=== PATIENT | male | born 1985 | race African-American/Black ===

== ENCOUNTER 2022-07-15 12:28 | Emergency (ER) | payer SELFPAY ==
--- OUTSIDE RECORDS SUMMARY | 2022-07-15 12:31 | XMS REPORT | Clinical Summary ---
:1985 Author Organization [facility] MD [facility] Address [address] [place] [address] Care Team Providers Name Role Phone Unavailable Primary Care Provider Unavailable Allergies No known active allergies Medications Medication Sig Dispensed Refills Start Date End Date Status meclizine Take 1 tablet 10 tablet 0 05/26/2022 05/29/2022 Expi red (ANTIVERT) 12.5 mg (12.5 mg) by mouth tabletIndications: 3 (three) times a Dizziness day as needed for dizziness for up to 3 days. meclizine Take 0.5 tablets 5 tablet 0 05/26/2022 05/29/2022 E xpired (ANTIVERT) 25 mg (12.5 mg) by mouth tabletIndications: 3 (three) times a Dizziness day as needed for dizziness for up to 3 days. Active Problems Not on file Encounters Date Type Specialty Care Team Description 05/26/2022 Emergency Emergency Medicine Mulu Underwood MD Dizzi ness (Primary Dx); Dehydration; HIV positive 05/26/2022 Travel after 07/15/2021 Social History Tobacco Use Types Packs/Day Years Used Date Smoking Tobacco: Never Assessed Sex Assigned at Date Recorded Not on file Job Start Date Occupation Industry Not on file Not on file Not on file Last Filed Vital Signs Vital Sign Reading Time Taken Comments Blood Pressure 119/80 05/26/2022 10:22 PM CDT Pulse 61 05/26/2022 10:22 PM CDT Temperature 36.7 C (98 F) 05/26/2022 10:22 PM CDT Respiratory Rate 18 05/26/2022 10:22 PM CDT Oxygen Saturation 98% 05/26/2022 10:22 PM CDT Inhaled Oxygen Concentration - - Weight 65.1 kg (143 lb 8.3 oz) 05/26/2022 6:01 PM CDT Height - - Body Mass Index - - Plan of Treatment Not on file Procedures Procedure Name Priority Date/Time Associated Comments Diagnosis CT HEAD WO CONTRAST Routine 05/26/2022 7:57 Resul ts for this PM CDT procedure are i n the results section. FRACTIONATED BILIRUBIN Routine 05/26/2022 7:06 Re sults for this PM CDT procedure are i n the results section. TOTAL PROTEIN Routine 05/26/2022 7:06 Results for this PM CDT procedure are i n the results section. ASPARTATE Routine 05/26/2022 7:06 Results for this AMINOTRANSFERASE PM CDT procedure a re in the results section. ALANINE AMINOTRANSFERASE Routine 05/26/2022 7:06 Results for this PM CDT procedure are i n the results section. ALKALINE PHOSPHATASE Routine 05/26/2022 7:06 Resu lts for this PM CDT procedure are i n the results section. ALBUMIN LEVEL Routine 05/26/2022 7:06 Results for this PM CDT procedure are i n the results section. CALCIUM LEVEL TOTAL Routine 05/26/2022 7:06 Resul ts for this PM CDT procedure are i n the results section. .GLOMERULAR FILTRATION Routine 05/26/2022 7:06 Re sults for this RATE PM CDT procedure are i n the results section. SERUM CREATININE Routine 05/26/2022 7:06 Results for this PM CDT procedure are i n the results section. ELECTROLYTE PANEL Routine 05/26/2022 7:06 Results for this PM CDT procedure are i n the results section. BLOOD UREA NITROGEN Routine 05/26/2022 7:06 Resul ts for this PM CDT procedure are i n the results section. GLUCOSE LEVEL Routine 05/26/2022 7:06 Results for this PM CDT procedure are i n the results section. MANUAL DIFFERENTIAL STAT 05/26/2022 7:06 Resul ts for this PM CDT procedure are i n the results section. Results CBC STAT 05/26/2022 7:06 Results for this PM CDT procedure are i n the results section. PHOSPHORUS LEVEL Routine 05/26/2022 7:06 Results for this PM CDT procedure are i n the results section. MAGNESIUM LEVEL Routine 05/26/2022 7:06 Results f or this PM CDT procedure are i n the results section. COMPREHENSIVE METABOLIC Routine 05/26/2022 7:06 PANEL PM CDT COMPLETE BLOOD COUNT W/ Routine 05/26/2022 7:06 DIFFERENTIAL PM CDT POC GLUCOSE SCREEN Routine 05/26/2022 6:07 Result s for this PM CDT procedure are i n the results section. after 07/15/[address] Head without Contrast (05/26/2022 7:57 PM CDT) Anatomical Region Laterality Modality Head Computed Tomography Specimen (Source) Anatomical Collection Method Collection Time Re ceived Time Location / / Volume Laterality 05/26/2022 8:03 PM CDT Impressions 05/26/2022 8:07 PM CDT No acute intracranial findings. Favoring chronic sinusitis. Narrative 05/26/2022 8:07 PM CDT FULL RESULT: EXAMINATION: CT HEAD WO CONTRAST on 05/26 7:57 PM COMPARISON: None HISTORY: dizziness INDICATION: dizziness, Dizziness TECHNIQUE: CT HEAD WO CONTRAST was per formed as per departmental protocol. FINDINGS: No acute intracranial hemorrhage, abnorm al castle-white matter differentiation, large transcortical territory ischemia or mass lesion. No extra-axial collection. No midline sh ift or mass effect seen. No evidence for hydrocephalus. Brain vol ume is within normal range. The osseous structures demonstrate no kruger spicious lytic or blastic lesion. The visualized orbits and extracranial s oft tissues are unremarkable. Subtotal opacification of the right sphe noid sinus and left maxillary sinus by polypoid mucosal disease and minimal mucosal thickening in the floor of the right maxillary sinus is without concerning bony destruction or fluid level. Procedure Note [place], MD Marilee - 05/26/2022 FULL RESULT: EXAMINATION: CT HEAD WO CONTRAST on 05/26 7:57 PM COMPARISON: None HISTORY: dizziness INDICATION: dizziness, Dizziness TECHNIQUE: CT HEAD WO CONTRAST was perfo rmed as per departmental protocol. FINDINGS: No acute intracranial hemorrhage, abnorm al castle-white matter differentiation, large transcortical territory ischemia or mass lesion. No extra-axial collection. No midline sh ift or mass effect seen. No evidence for hydrocephalus. Brain vol ume is within normal range. The osseous structures demonstrate no kruger spicious lytic or blastic lesion. The visualized orbits and extracranial s oft tissues are unremarkable. Subtotal opacification of the right sphe noid sinus and left maxillary sinus by polypoid mucosal disease and minimal mucosal thickening in the floor of the right maxillary sinus is without concerning bony destruction or fluid level. IMPRESSION: No acute intracranial findings. Favoring chronic sinusitis. Maria Fernanda Lyons MD IMG CT ORDERABLES .Serum Creatinine (05/26/2022 7:06 PM CDT) athologist Signature Creatinine 0.88 0.67 - 1.17 [facility] mg/dL [facility] Specimen Anatomical Collection Method Collection Time Receive d Time (Source) Location / / Volume Laterality Blood 05/26/2022 7:06 PM 7:11 CDT PM CDT Maria Fernanda Lyons MD LAB BLOOD ORDERABLES Performing Organization Address City/State/ZIP Code Phon e Number [facility] CANCER Unless otherwise noted, [place] [address] [place] all lab tests performed by: Division of Pathology and Laboratory Medicine [address] (ABNORMAL) .CBC (05/26/2022 7:06 PM CDT) athologist Signature WBC 3.8 (L) 4.0 - 11.0 [facility] RBC 4.75 4.50 - [place] MD 6.00 /[facility] Hgb 14.3 14.0 - [place] MD 18.0 gm/dL [facility] Hct 38.3 (L) 40.0 - [place] MD 54.0 [facility] MCV 81 (L) 82 - 98 [facility] MCH 30.1 27.0 - [place] MD 31.0 pg [facility] MCHC 37.3 (H) 31.0 - [place] MD 36.0 gm/dL [facility] RDW-SD 42.4 35.1 - [place] MD 46.3 [facility] RDW-CV 14.3 12.0 - [place] MD 15.5 [facility] Platelet count 181 140 - 440 [facility] MPV 10.8 (H) 4.0 - 10.4 [facility] INRBC 0.0 <=0.0 % [facility] Comment: The INRBC (instrument NRBC) value reflec ts the enumeration of nucleated red blood cells contained i n a 200uL sample of whole blood analyzed by the instrumen t. This value may differ from the NRBC value reported in a manual differential, which is based on a 100 cell differentia l. Specimen Anatomical Collection Method Collection Time Receive d Time (Source) Location / / Volume Laterality Blood 05/26/2022 7:06 PM 3 7:10 CDT PM CDT Maria Fernanda Lyons MD LAB BLOOD ORDERABLES Performing Organization Address City/[facility] Phon e Number [facility] CANCER Unless otherwise noted, [address] all lab tests performed by: Division of Pathology and Laboratory Medicine [address] [place] Glomerular Filtration Rate (05/26/2022 7:06 PM CDT) P athologist Signature eGFR 113 >=60 [facility] mL/min/1.73 [facility]ENTER sq. m Comment: The eGFRcr is calculated with the 2020 KD-EPI creatinine equation using creatinine, patient's age, and sex for adults 18 years of age and older. Other factors, especially muscle mass, may affect accuracy and need to be considered. According to the Kidney Disease: Improvi ng Global Outcomes (KDIGO) CKD Work Group 2012 Clinical Practice Guideline, chronic kidney disease (CKD) is defined as the abnormalities of kidney structure or function, present for more than 3 months, with implications for health. CKD should be c lassified by cause, GFR category, and albuminuria category. KDIGO guidelines provide the following GFR categories Stage Description GFR mL/min/1.73 m2 G1* Normal or high >= 90 G2* Mildly decreased 60-89 G3a Mildly to moderately decreased 45-59 G3b Moderately to severely decreased 30- 44 G4 Severely decreased 15-29 G5 Kidney failure <15 *In the absence of evidence of kidney da mage, neither G1 nor G2 fulfill criteria for CKD. Specimen Anatomical Collection Method Collection Time Receive d Time (Source) Location / / Volume Laterality Blood 05/26/2022 7:06 PM 3 7:11 CDT PM CDT Maria Fernanda Lyons MD LAB BLOOD ORDERABLES Performing Organization Address City/[facility] Phon e Number [facility] CANCER Unless otherwise noted, [address] all lab tests performed by: Division of Pathology and Laboratory Medicine [address] Fractionated Bilirubin (05/26/2022 7:06 PM CDT) [facility] Bili Total 0.6 <=1.2 mg/dL [facility] Comment: Indocyanine Green (ICG) may cause falsel y elevated bilirubin results. Total and direct bilirubin must not be measured from samples containing indocyanine green. False elevation of total bilirubin can b e seen in patients with IgG concentrations above 28 g/L. Bili Direct 0.2 <=0.3 mg/dL [facility] Comment: Indocyanine Green (ICG) may cau se falsely elevated bilirubin results. Total and direct bilirubin must not be measure d from samples containing indocyanine green. Bili Indirect 0.4 0.0 - 0.9 mg/dL NM HIEN JARAD [facility] Specimen Anatomical Collection Method Collection Time Receive d Time (Source) Location / / Volume Laterality Blood 05/26/2022 7:06 PM 7:11 CDT PM CDT Maria Fernanda Lyons MD LAB BLOOD ORDERABLES Performing Organization Address City/State/ZIP Code Phon e Number [facility] CANCER Unless otherwise noted, [place] [address] [place] all lab tests performed by: Division of Pathology and Laboratory Medicine [address] (ABNORMAL) Differential (05/26/2022 7:06 PM CDT) [facility] Neutrophil % 30.4 (L) 42.0 - [facility] 66.0 % CANCER CENTER Lymphocyte % 59.0 (H) 24.0 - [facility] 44.0 % CANCER [place] Monocyte % 7.9 (H) 2.0 - 7.0 [facility] CENTER Eosinophil % 1.6 1.0 - 4.0 [facility] CENTER Basophil % 0.8 0.0 - 1.0 [facility] % [facility] CENTER IGRE % 0.3 0.0 - 0.4 [facility] CENTER Comment: IGRE % count includes Metamyelo cytes, Myelocytes, and Promyelocytes. Neutrophil Abs 1.15 (L) 1.70 - 7.30 K/uL NM MD MCKENZIE CASTANEDA [facility] Lymphocyte Abs 2.23 1.00 - 4.80 K/uL NM MD MCKENZIE CASTANEDA [facility] Monocyte Abs 0.30 0.08 - 0.70 K/uL NM MD HIEN AMAYA [facility] Eosinophil Abs 0.06 0.04 - 0.40 K/uL NM MD MCKENZIE CASTANEDA [facility] CENTER Basophil Abs 0.03 0.00 - 0.10 K/uL NM MD STANF[place] JARAD [facility] IG Abs 0.01 0.00 - 0.04 K/uL NM MD PURVI Cotto [facility] Specimen Anatomical Collection Method Collection Time Receive d Time (Source) Location / / Volume Laterality Blood 05/26/2022 7:06 PM 3 7:10 CDT PM CDT Maria Fernanda Lyons MD LAB BLOOD ORDERABLES Performing Organization Address City/State/ZIP Code Phon e Number [facility] CANCER Unless otherwise noted, [address] all lab tests performed by: Division of Pathology and Laboratory Medicine [address] BUN (05/26/2022 7:06 PM CDT) athologist Signature BUN 12 6 - 23 [facility] mg/dL [facility] CENTER Specimen Anatomical Collection Method Collection Time Receive d Time (Source) Location / / Volume Laterality Blood 05/26/2022 7:06 PM 3 7:11 CDT PM CDT Maria Fernanda Lyons MD LAB BLOOD ORDERABLES Performing Organization Address City/State/ZIP Code Phon e Number [facility] CANCER Unless otherwise noted, [address] all lab tests performed by: Division of Pathology and Laboratory Medicine [facility] [place] ALT (05/26/2022 7:06 PM CDT) athologist Signature ALT 13 <=41 U/L [facility] Specimen Anatomical Collection Method Collection Time Receive d Time (Source) Location / / Volume Laterality Blood 05/26/2022 7:06 PM 3 7:11 CDT PM CDT Maria Fernanda Lyons MD LAB BLOOD ORDERABLES Performing Organization Address City/State/ZIP Code Phon e Number [facility] CANCER Unless otherwise noted, [address] all lab tests performed by: Division of Pathology and Laboratory Medicine [address] [place] Aspartate Aminotransferase (05/26/2022 7:06 PM CDT) athologist Signature AST 27 <=40 U/L [facility] Specimen Anatomical Collection Method Collection Time Receive d Time (Source) Location / / Volume Laterality Blood 05/26/2022 7:06 PM 3 7:11 CDT PM CDT Maria Fernanda Lyons MD LAB BLOOD ORDERABLES Performing Organization Address City/[facility]/ZIP Code Phon e Number [facility] CANCER Unless otherwise noted, [address] all lab tests performed by: Division of Pathology and Laboratory Medicine [address] (ABNORMAL) Total Protein (05/26/2022 7:06 PM CDT) P athologist Signature Total Protein 8.7 (H) 6.4 - 8.3 [facility] g/dL [facility] Specimen Anatomical Collection Method Collection Time Receive d Time (Source) Location / / Volume Laterality Blood 05/26/2022 7:06 PM 3 7:11 CDT PM CDT Maria Fernanda Lyons MD LAB BLOOD ORDERABLES Performing Organization Address City/[facility]/ZIP Code Phon e Number [facility] CANCER Unless otherwise noted, [address] all lab tests performed by: Division of Pathology and Laboratory Medicine [address] Phosphorus Level (05/26/2022 7:06 PM CDT) P athologist Signature Phosphorus 4.4 2.5 - 4.5 [facility] mg/dL [facility] Specimen Anatomical Collection Method Collection Time Receive d Time (Source) Location / / Volume Laterality Blood 05/26/2022 7:06 PM 3 7:11 CDT PM CDT Maria Fernanda Lyons MD LAB BLOOD ORDERABLES Performing Organization Address City/[facility]/ZIP Code Phon e Number [facility] CANCER Unless otherwise noted, [address] all lab tests performed by: Division of Pathology and Laboratory Medicine [address] Alkaline Phosphatase (05/26/2022 7:06 PM CDT) P athologist Signature Alk Phos 80 40 - 129 [facility] U/L [facility] Specimen Anatomical Collection Method Collection Time Receive d Time (Source) Location / / Volume Laterality Blood 05/26/2022 7:06 PM 3 7:11 CDT PM CDT Maria Fernanda Lyons MD LAB BLOOD ORDERABLES Performing Organization Address City/[facility]/ZIP Code Phon e Number [facility] CANCER Unless otherwise noted, [address] all lab tests performed by: Division of Pathology and Laboratory Medicine [address] Magnesium Level (05/26/2022 7:06 PM CDT) athologist Signature Magnesium 2.0 1.6 - 2.6 [facility] mg/dL [facility] Specimen Anatomical Collection Method Collection Time Receive d Time (Source) Location / / Volume Laterality Blood 05/26/2022 7:06 PM 3 7:11 CDT PM CDT Maria Fernanda Lyons MD LAB BLOOD ORDERABLES Performing Organization Address [facility] Phon e Number [facility] Unless otherwise noted, [address] all lab tests performed by: Division of Pathology and Laboratory Medicine [address] (ABNORMAL) Glucose Level (05/26/2022 7:06 PM CDT) P athologist Signature Glucose Level 102 (H) 70 - 99 [facility] mg/dL [facility] Comment: Effective 09/02/15, the glucose reference intervals have been updated based on [place] [employer] guidelines (Standards of Medical Care in Diabetes 2016. Diabetes Care 2016; 39: S13-S22). Fasting blood glucose: Normal: 70-99 mg/dL Impaired fasting glucose (increased risk for diabetes or pre-diabetes): 100- 125 mg/dL Diabetes mellitus: >/=126 mg/dL Random blood glucose: Normal: 70-199 mg/dL Note: Random glucose >100 mg/dL is assoc iated with increased risk for diabetes Specimen Anatomical Collection Method Collection Time Receive d Time (Source) Location / / Volume Laterality Blood 05/26/2022 7:06 PM 3 7:11 CDT PM CDT Maria Fernanda Lyons MD LAB BLOOD ORDERABLES Performing Organization Address City/[facility] Phon e Number [facility] CANCER Unless otherwise noted, [address] all lab tests performed by: Division of Pathology and Laboratory Medicine [address] Calcium Level (05/26/2022 7:06 PM CDT) athologist Signature Calcium Lvl 9.4 8.4 - 10.2 [facility] mg/dL [facility] Specimen Anatomical Collection Method Collection Time Receive d Time (Source) Location / / Volume Laterality Blood 05/26/2022 7:06 PM 3 7:11 CDT PM CDT Maria Fernanda Lyons MD LAB BLOOD ORDERABLES Performing Organization Address City/[facility]/ZIP [facility] Phon e Number [facility] CANCER Unless otherwise noted, [address] all lab tests performed by: Division of Pathology and Laboratory Medicine [facility] Albumin Level (05/26/2022 7:06 PM CDT) athologist Signature Albumin Lvl 4.4 3.5 - 5.2 [facility] gm/dL [facility] Specimen Anatomical Collection Method Collection Time Receive d Time (Source) Location / / Volume Laterality Blood 05/26/2022 7:06 PM 3 7:11 CDT PM CDT Maria Fernanda Lyons MD LAB BLOOD ORDERABLES Performing Organization Address City/[facility]/ZIP Code Phon e Number [facility] CANCER Unless otherwise noted, [address] all lab tests performed by: Division of Pathology and Laboratory Medicine [facility] Electrolyte Panel (05/26/2022 7:06 PM CDT) athologist Signature Sodium Lvl 141 136 - 145 [facility] mEq/L [facility] Potassium Lvl 4.0 3.5 - 5.1 [facility] mEq/L [facility] Chloride 103 98 - 107 [facility] mEq/L [facility] CENTER CO2 25 22 - 29 [facility] mEq/L [facility] Anion Gap 13 4 - 14 [facility] mEq/L [facility] Specimen Anatomical Collection Method Collection Time Receive d Time (Source) Location / / Volume Laterality Blood 05/26/2022 7:06 PM 3 7:11 CDT PM CDT Maria Fernanda Lyons MD LAB BLOOD ORDERABLES Performing Organization Address City/[facility]/ZIP Code Phon e Number [facility] CANCER Unless otherwise noted, [address] all lab tests performed by: Division of Pathology and Laboratory Medicine [address] (ABNORMAL) POC Glucose Screen (05/26/2022 6:07 PM CDT) P athologist Signature POC Glucose 107 (H) 70 - 99 [facility] mg/dL Comment: Capillary blood samples, e.g. obtained b y fingerstick, may have inaccurate results in patients with decreased peripheral blood flow. All POC Glucose screen test results, inc luding critical values, must be interpreted and evaluated in the context of the patients clinical findings. It is recommended to confirm any questionable test results by core lab methodology. Method description: All results are deandra ured using Electrochemistry test methodology. The glucose in the sample mixes with the reagents on the test strip. The reaction produces an electric current. The amount of current produced is proportion al to the glucose concentration in the blood. PO Sample Type Capillary POC [facility] Performing Lab [facility] POC [facility] R Comment: [facility] Clinical Lab, [address] [place] [address]; Lab Direct or: Jie Villalobos MD; Waived Point of Care Testing - Zohra Levin MD Specimen Anatomical Collection Method Collection Time Receive d Time (Source) Location / / Volume Laterality Blood 05/26/2022 6:07 PM 6:07 CDT PM CDT Mulu Underwood MD POCT ORDERABLES - DEVICE Performing Organization Address City/State/ZIP Code Phon e Number POC [facility] Unless otherwise noted, [place] [address] lab tests performed by: Division of Pathology and Laboratory Medicine [address] [place] [address] after 07/15/2021 Insurance Payer Benefit Plan / Subscriber ID Effective Dates Phone Addre ss Type Group [employer] PPO POS [id number] 2022-Present [address] [place] [address]
--- OUTSIDE RECORDS SUMMARY | 2022-07-15 12:48 | XMS REPORT | Continuity of Care Document ---
:1985 Author Organization [facility] t Address [address] [place] [address] [place] [id number] Care Team Providers Name Role Phone CLAUDIA MERRITT Attending Clinician Unavailable YING UNDERWOOD Attending Clinician Unavailable Ying Underwood MD Attending Clinician Kaitlin Porter Attending Clinician Unavailable Boy Costa Attending Clinician Unavailable Matthew Carey Attending Clinician Unavailable PREETI ROBLES Attending Clinician Unavailable Preeti Robles Attending Clinician LATISHA LECHUGA Attending Clinician Unavailable Elizabeht Juárez Attending Clinician ELIZABETH JUÁREZ Attending Clinician Unavailable MARIA DEL ROSARIO CASTAÑEDA Attending Clinician Unavailable Maria Del Rosario Castañeda Attending Clinician Autumn Cuenca Attending Clinician Roselia Tanner Attending Clinician Unavailable German, Oladipo A Admitting Clinician Unavailable Physician, No Primary or Family Admitting Clinician Unavaila ble [facility] Admitting Clinician Unavailable Matthew Carey Admitting Clinician Unavailable PREETI ROBLES Admitting Clinician Unavailable Preeti Robles Admitting Clinician MARIA DEL ROSARIO CASTAÑEDA Admitting Clinician Unavailable Maria Del Rosario Castañeda Admitting Clinician Nallely Mckeon Admitting Clinician Roselia Tanner Admitting Clinician Unavailable Payers Payer Name Policy Type Policy Number Effective Date Expiration Date S zac [place] POS [id number] 2022 00:00:00 Problems Condition Condition Condition Status Onset Resolution Last Treating Co mments Source Name Details Category Date Date Treatment Clinician Date ALCOHOL ALCOHOL Diagnosis Active 2020-11-06 Memoria INTOXICATI INTOXICATI 10-30 22:00:00 l ON, ON, 00:00: Albert DEPRESSION DEPRESSION 00 , AGITAT , AGITAT Active 10/30/2020 [facility] AMS AMS Diagnosis Active 2020-10-30 Mem oria Active 10-30 18:23:00 l 10/30/2020 00:00: Lennox GOLDSMITH [address] [place] [address] WEAKNESS WEAKNESS Diagnosis Active 2020-06-08 Memoria Active 06-08 16:25:00 l 06/08/2020 00:00: Lennox GOLDSMITH [facility] [address] ACUTE ACUTE Diagnosis Active 2019-022019-12-17 Mem oria PANCREATIT PANCREATIT 02-13 15:27:00 l IS IS Active 00:00: Albert 12/15/[address] [place] [address] ABD PAIN ABD PAIN Diagnosis Active 2019-022019-12-15 Memoria Active 02-13 17:57:00 l 12/15/2019 00:00: Lennox GOLDSMITH [place] PANCREATIT PANCREATI Diagnosis Active 2019-04-27 Memoria IS TIS Active 04-25 07:31:00 l 04/26/2019 00:00: Lennox GOLDSMITH 00 [facility] Calculus Calculus Problem 2019-12-23 Memoria of of 07:56:30 l gallbladde gallbladde He rmann r with r with chronic chronic cholecysti cholecysti tis tis without without obstructio obstructio n n 12/23/2019 [facility] Biliary Biliary Problem 2019-12-23 In moria acute acute 07:56:30 l pancreatit pancreatit He rmann is without is without necrosis necrosis or or infection infection 12/23/2019 [facility] Alcohol Alcohol Problem 2019-12-23 In moria dependence dependence 07:56:30 l , , Albert uncomplica uncomplica tae tae 12/23/2019 [facility] Anemia, Anemia, Problem 2019-12-23 In moria unspecifie unspecifie 07:56:30 l d d Albert 12/23/2019 [facility] Contact Contact Problem 2019-12-23 Me moria with and with and 07:56:30 l (suspected (suspected He rmann ) exposure ) exposure to other to other viral viral communicab communicab le le diseases diseases 12/23/2019 [facility] Other long Other Problem 2019-12-23 emoria term emt intermediate 07:56:30 l (current) (current) Herm rachid drug drug therapy therapy 12/23/2019 [facility] Asymptomat Asymptoma Problem 2019-12-23 Memoria ic human tic human 07:56:30 l immunodefi immunodefi He rmann ciency ciency virus virus [HIV] [HIV] infection infection status status 12/23/2019 [facility] Human Human Problem Resolve 2020-11-02 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 virus virus infection infection (disorder) (disorder) Resolved Problem 11/02/2020 [facility] Depressive Depressiv Problem Active 2020-11-02 Memoria disorder e disorder 09:18:03 l (disorder) (disorder) He rmann Active Problem 11/02/2020 [facility] ALCOHOL ALCOHOL Diagnosis Active 2020-11-06 Memoria USE, USE, 22:00:00 l UNSPECIFIE UNSPECIFIE He rmann D WITH D WITH INTOXICATI INTOXICATI Active [facility] ACUTE ACUTE Diagnosis Active 2019-12-17 Mem oria PANCREATIT PANCREATIT 15:27:00 l IS WITHOUT IS WITHOUT He rmann NECROSIS NECROSIS OR I OR I Active [facility] ACUTE ACUTE Diagnosis Active 2019-04-30 Mem oria PANCREATIT PANCREATIT 08:03:00 l IS WITHOUT IS WITHOUT He rmann NECROSIS NECROSIS OR OR INFECTION, INFECTION, UNS UNS Active [facility] History of Past Illness Condition Condition Condition Status Onset Resolution Last Treating Co mments Source Name Details Category Date Date Treatment Clinician Date Syncope Syncope Problem 2020-06-10 2020-06-10 Memoria and and 06-08 22:48:58 22:48:58 l collapse collapse 17:00: Lennox ross 06/08/2020 00 06/10/2020 [facility] Hypokalemi Hypokalem Problem 2020-06-10 2020-06-10 Memoria a ia 06-08 22:48:58 22:48:58 l 06/08/2020 17:00: Lennox ross 06/10/2020 00 [facility], [facility] Allergies, Adverse Reactions, Alerts Allergy Allergy Status Severity Reaction(s) Onset Inactive Treating Comm ents Source Name Type Date Date Clinician No Known DA Active U 2017-02 [facility] Allergie 0-20 Clear s 00:00: Raymond 00 [facility] No Known DA Active U [facility] Allergie 4-20 Clear s 00:00: Raymond 00 [facility] No Known No Known Active Memori a Medicati Medicati l on on Albert Allergie Allergie s s Social History Social Habit Start Date Stop Date Quantity Comments Source Social History 2020-10-31 2020-10-31 [facility] 01:09:24 01:09:24 Sex Ass[birth year] At [birth year] [facility] 00:00:00 00:00:00 MD [facility] Center Smoking Status Start Date Stop Date Source Social [facility] Medications Ordered Filled Start Stop Current Ordering Indication Dosage Frequency Signature Comments Components Source Medication Medication Date Date Medication? Clinician (SIG) Name Name meclizine 2022- No Dizziness 12.5mg Take 1 [facility] ([facility]) 4-20 -24 tablet ity of 12.5 mg 00:00[place] 04:59 [place]12.5 mg[place] mouth 3 MD (three) Anderso times a n day as Cancer needed for Center dizziness for up to 3 days. meclizine 2022- No Dizziness 12.5mg Take 0.5 [facility] (ANTIVERT) 4-20 04-24 tablets ity o f 25 mg 00:00: 04:59 (12.5 mg) [place] tablet 00 :00 by mouth 3 MD (three) Anderso times a n day as Cancer needed for Center dizziness for up to 3 days. Famotidine No Notes: Memor ia 20 MG Oral 9-25 (Same as: l Tablet 22:00: Pepcid) [place] [Pepcid] 00 Famotidine No Notes: Memor ia 20 MG Oral 9-25 (Same as: l Tablet 22:00: Pepcid) [place] [Pepcid] 00 Famotidine No Notes: Memor ia 20 MG Oral 9-25 (Same as: l Tablet 22:00: Pepcid) Albert [Pepcid] 00 Famotidine No Notes: Memor ia 20 MG Oral 9-25 (Same as: l Tablet 22:00: Pepcid) Albert [Pepcid] 00 Multiple Yes 1 tab, PO, Mem oria Vitamins 9-25 Daily, # l oral 15:28: 30 tab, 0 Albert tablet, 00 Refill(s), chewable Pharmacy: [facility], Can substitute for any multivitam in, 177.8, cm, 10/30/20 20:05:00 CDT, Height, 60, kg, 10/30/20 20:05:00 CDT, Weight Multiple Yes 1 tab, PO, Mem oria Vitamins 9-25 Daily, # l oral 15:28: 30 tab, 0 Albert tablet, 00 Refill(s), chewable Pharmacy: [facility], Can substitute for any multivitam in, 177.8, cm, 10/30/20 20:05:00 CDT, Height, 60, kg, 10/30/20 20:05:00 CDT, Weight Multiple Yes 1 tab, PO, Mem oria Vitamins 9-25 Daily, # l oral 15:28: 30 tab, 0 Albert tablet, 00 Refill(s), chewable Pharmacy: [facility], Can substitute for any multivitam in, 177.8, cm, 10/30/20 20:05:00 CDT, Height, 60, kg, 10/30/20 20:05:00 CDT, Weight Multiple Yes 1 tab, PO, Mem oria Vitamins 9-25 Daily, # l oral 15:28: 30 tab, 0 [place] tablet, 00 Refill(s), chewable Pharmacy: [facility], Can substitute for any multivitam in, 177.8, cm, 10/30/20 20:05:00 CDT, Height, 60, kg, 10/30/20 20:05:00 CDT, Weight Folic Acid No Notes: Memor ia 9-25 (Same as: l 14:00: Folvite) Albert 00 multivitami No Notes: Alem patt n 9-25 (Same l 14:00: as:Thera) WASTE: F/P - Black; E - Municipal Trash Bin Take with food. Thiamine No Notes: Memoria 925 (Same As: l 14:00: Vitamin Albert 00 B1) Folic Acid No Notes: Memor ia 10-31 (Same as: l 14:00: Folvite) [place] 00 multivitami No Notes: Alem patt n 9-25 (Same l 14:00: as:Thera) Albert 00 WASTE: F/P - Black; E - Municipal Trash Bin Take with food. Thiamine No Notes: Memoria 9-25 (Same As: l 14:00: Vitamin Albert 00 B1) Folic Acid No Notes: Memor ia 10-31 (Same as: l 14:00: Folvite) Albert 00 multivitami No Notes: Alem patt n 9-25 (Same l 14:00: as:Thera) [place] 00 WASTE: F/P - Black; E - Municipal Trash Bin Take with food. Thiamine No Notes: Memoria 9-25 (Same As: l 14:00: Vitamin [place] 00 B1) Folic Acid No Notes: Memor ia 9-25 (Same as: l 14:00: Folvite) [place] 00 multivitami No Notes: Alem patt n 9-25 (Same l 14:00: as:Thera) Albert 00 WASTE: F/P - Black; E - Municipal Trash Bin Take with food. Thiamine No Notes: Memoria 9-25 (Same As: l 14:00: Vitamin Albert 00 B1) Potassium No Notes: Memori a Chloride 9-25 (Same as: l 12:14: K-Dur 20) Albert 00 "Do Not Crush" Give with food and full glass of water For patients unable to swallow tablet, dissolve in one half glass of water. Allow about 2 minutes for the tablets to disintegra te. Stir before giving to prepare slurry and administer . Please exclude Patient s with feeding tube less than 14 [place] (Dobhoff, J-tube etc) and pediatric and patients. Potassium No Notes: Memori a Chloride 9-25 (Same as: l 12:14: K-Dur 20) Albert 00 "Do Not Crush" Give with food and full glass of water For patients unable to swallow tablet, dissolve in one half glass of water. Allow about 2 minutes for the tablets to disintegra te. Stir before giving to prepare slurry and administer . Please exclude Patient s with feeding tube less than 14 [place] (Dobhoff, J-tube etc) and pediatric and patients. Potassium No Notes: Memori a Chloride 9-25 (Same as: l 12:14: K-Dur 20) [place] 00 "Do Not Crush" Give with food and full glass of water For patients unable to swallow tablet, dissolve in one half glass of water. Allow about 2 minutes for the tablets to disintegra te. Stir before giving to prepare slurry and administer . Please exclude Patient s with feeding tube less than 14 [place] (Dobhoff, J-tube etc) and pediatric and patients. Potassium No Notes: Memori a Chloride 9-25 (Same as: l 12:14: K-Dur 20) Albert 00 "Do Not Crush" Give with food and full glass of water For patients unable to swallow tablet, dissolve in one half glass of water. Allow about 2 minutes for the tablets to disintegra te. Stir before giving to prepare slurry and administer . Please exclude Patient s with feeding tube less than 14 [place] (Dobhoff, J-tube etc) and pediatric and patients. cobicistat Yes 1 tab, PO, M emoria 150 MG / 9-25 Daily, 0 l darunavir 01:15: Refill(s) Her yang 800 MG / 00 emtricitabi ne 200 MG / tenofovir alafenamide 10 MG Oral Tablet [Symtuza] cobicistat Yes 1 tab, PO, M emoria 150 MG / 9-25 Daily, 0 l darunavir 01:15: Refill(s) Her yang 800 MG / 00 emtricitabi ne 200 MG / tenofovir alafenamide 10 MG Oral Tablet [Symtuza] cobicistat Yes 1 tab, PO, M emoria 150 MG / 9-25 Daily, 0 l darunavir 01:15: Refill(s) Her yang 800 MG / 00 emtricitabi ne 200 MG / tenofovir alafenamide 10 MG Oral Tablet [Symtuza] cobicistat Yes 1 tab, PO, M emoria 150 MG / 9-25 Daily, 0 l darunavir 01:15: Refill(s) Her yang 800 MG / 00 emtricitabi ne 200 MG / tenofovir alafenamide 10 MG Oral Tablet [Symtuza] Ativan No Notes: Memoria 9-24 (Same as: l 23:00: Ativan) [place] 00 Ativan No Notes: Memoria 9-24 (Same as: l 23:00: Ativan) [place] 00 Ativan No Notes: Memoria 9-24 (Same as: l 23:00: Ativan) [place] 00 Ativan No Notes: Memoria 9-24 (Same as: l 23:00: Ativan) [place] 00 Docusate No Notes: Memoria 9-24 (Same as: l 22:00: Colace) [place] 00 (Do Not Crush) Docusate No Notes: Memoria 9-24 (Same as: l 22:00: Colace) [place] 00 (Do Not Crush) Docusate No Notes: Memoria 9-24 (Same as: l 22:00: Colace) Albert 00 (Do Not Crush) Docusate No Notes: Memoria 9-24 (Same as: l 22:00: Colace) Albert 00 (Do Not Crush) Haldol No Notes: Memoria 9-24 (Same as: l 21:58: Haldol) Haldol No Notes: Memoria 9-24 (Same as: l 21:58: Haldol) Albert 00 Haldol No Notes: Memoria 9-24 (Same as: l 21:58: Haldol) Haldol No Notes: Memoria 9-24 (Same as: l 21:58: Haldol) Lorazepam No Notes: Memori a 9-24 (Same as: l 18:30: Ativan) Lactated No 1,000 mL, Alem patt Ringers IV 10-30 Rate: 100 l 1,000 mL 18:30: ml/hr, [place] Infuse over: 10 hr, Route: IV, Dosing Weight 67.727 kg, Total Volume: 1,000, Start date: 10/30/20 13:30:00 CDT, Duration: 30 day, Stop date: 11/29/20 13:29:00 CDT, BSA: 1.83 m2, 0 Saline No Notes: Memoria Flush 0.9% 9-24 Same as: l 18:30: BD Posiflush Sterile Lorazepam No Notes: Memori a 9-24 (Same as: l 18:30: Ativan) Lactated No 1,000 mL, Alem patt Ringers IV 10-30 Rate: 100 l 1,000 mL 18:30: ml/hr, Albert 00 Infuse over: 10 hr, Route: IV, Dosing Weight 67.727 kg, Total Volume: 1,000, Start date: 10/30/20 13:30:00 CDT, Duration: 30 day, Stop date: 11/29/20 13:29:00 CDT, BSA: 1.83 m2, 0 Saline No Notes: Memoria Flush 0.9% 9-24 Same as: l 18:30: BD Albert Posiflush Sterile Lorazepam No Notes: Memori a 9-24 (Same as: l 18:30: Ativan) [place] 00 Lactated 2020-0 No 1,000 mL, Alem patt Ringers IV 10-30 Rate: 100 l 1,000 mL 18:30: ml/hr, Albert 00 Infuse over: 10 hr, Route: IV, Dosing Weight 67.727 kg, Total Volume: 1,000, Start date: 10/30/20 13:30:00 CDT, Duration: 30 day, Stop date: 11/29/20 13:29:00 CDT, BSA: 1.83 m2, 0 Saline 2020-0 No Notes: Memoria Flush 0.9% 10-30 Same as: l 18:30: BD [place] 00 Posiflush Sterile Lorazepam 2020-0 No Notes: Memori a 10-30 (Same as: l 18:30: Ativan) Albert 00 Lactated 2020-0 No 1,000 mL, Alem patt Ringers IV 10-30 Rate: 100 l 1,000 mL 18:30: ml/hr, Albert 00 Infuse over: 10 hr, Route: IV, Dosing Weight 67.727 kg, Total Volume: 1,000, Start date: 10/30/20 13:30:00 CDT, Duration: 30 day, Stop date: 11/29/20 13:29:00 CDT, BSA: 1.83 m2, 0 Saline 2020-0 No Notes: Memoria Flush 0.9% 10-30 Same as: l 18:30: BD Posiflush Sterile Dextrose 2020-0 No 12.5 gm, Memor ia 50% Syringe 10-30 25 mL, l (D50W) 18:24: Route: IVP, Drug Form: INJ, Dosing Weight 67.727, kg, PRN, PRN Blood Glucose Results, Start date: 10/30/20 13:24:00 CDT, Duration: 30 day, Stop date: 11/29/20 13:23:00 CDT, 0 Glucagon 2020-0 No 1 mg, Memoria 10-30 Route: IM, l 18:24: Drug form: PDR/INJ, PRN, Dosing Weight 67.727, kg, PRN Blood Glucose Results, Start date: 10/30/20 13:24:00 CDT, Duration: 30 day, Stop date: 11/29/20 13:23:00 CDT, 0 Ondansetron 2020-0 No Notes: Alem patt 10-30 (Same as: l 18:24: Zofran) MEDICATION WASTE Product Size: 4 mg Product Wasted: ___ mg Melatonin 2020- No Notes: Memori a 10-30 (Same as: l 18:24: Melatonin) Dextrose No 12.5 gm, Memor ia 50% Syringe 10-30 25 mL, l (D50W) 18:24: Route: Albert 00 IVP, Drug Form: INJ, Dosing Weight 67.727, kg, PRN, PRN Blood Glucose Results, Start date: 10/30/20 13:24:00 CDT, Duration: 30 day, Stop date: 11/29/20 13:23:00 CDT, 0 Glucagon 2020-0 No 1 mg, Memoria 10-30 Route: IM, l 18:24: Drug form: [place] 00 PDR/INJ, PRN, Dosing Weight 67.727, kg, PRN Blood Glucose Results, Start date: 10/30/20 13:24:00 CDT, Duration: 30 day, Stop date: 11/29/20 13:23:00 CDT, 0 Ondansetron 2020-0 No Notes: Alem patt 10-30 (Same as: l 18:24: Zofran) MEDICATION WASTE Product Size: 4 mg Product Wasted: ___ mg Melatonin No Notes: Memori a 10-30 (Same as: l 18:24: Melatonin) Dextrose No 12.5 gm, Memor ia 50% Syringe 10-30 25 mL, l (D50W) 18:24: Route: Albert 00 IVP, Drug Form: INJ, Dosing Weight 67.727, kg, PRN, PRN Blood Glucose Results, Start date: 10/30/20 13:24:00 CDT, Duration: 30 day, Stop date: 11/29/20 13:23:00 CDT, 0 Glucagon 2020-0 No 1 mg, Memoria 10-30 Route: IM, l 18:24: Drug form: Albert 00 PDR/INJ, PRN, Dosing Weight 67.727, kg, PRN Blood Glucose Results, Start date: 10/30/20 13:24:00 CDT, Duration: 30 day, Stop date: 11/29/20 13:23:00 CDT, 0 Ondansetron No Notes: Alem patt 24 (Same as: l 18:24: Zofran) MEDICATION WASTE Product Size: 4 mg Product Wasted: ___ mg Melatonin No Notes: Memori a 10-30 (Same as: l 18:24: Melatonin) Dextrose No 12.5 gm, Memor ia 50% Syringe 10-30 25 mL, l (D50W) 18:24: Route: IVP, Drug Form: INJ, Dosing Weight 67.727, kg, PRN, PRN Blood Glucose Results, Start date: 10/30/20 13:24:00 CDT, Duration: 30 day, Stop date: 11/29/20 13:23:00 CDT, 0 Glucagon No 1 mg, Memoria 10-30 Route: IM, l 18:24: Drug form: PDR/INJ, PRN, Dosing Weight 67.727, kg, PRN Blood Glucose Results, Start date: 10/30/20 13:24:00 CDT, Duration: 30 day, Stop date: 11/29/20 13:23:00 CDT, 0 Ondansetron No Notes: Alem patt 24 (Same as: l 18:24: Zofran) MEDICATION WASTE Product Size: 4 mg Product Wasted: ___ mg Melatonin No Notes: Memori a 9-24 (Same as: l 18:24: Melatonin) Potassium No Notes: Memori a Chloride 9-24 Infuse at l 17:26: a rate of Albert 00 10 mEq/hr. (Same as: KCL) Potassium No Notes: Memori a Chloride 9-24 Infuse at l 17:26: a rate of Albert 00 10 mEq/hr. (Same as: KCL) Potassium No Notes: Memori a Chloride 9-24 Infuse at l 17:26: a rate of Albert 00 10 mEq/hr. (Same as: KCL) Potassium No Notes: Memori a Chloride 9-24 Infuse at l 17:26: a rate of [place] 00 10 mEq/hr. (Same as: KCL) Thiamine No Notes: Memoria 9-24 (Same As: l 17:25: Vitamin [place] 00 B1) Thiamine No Notes: Memoria 9-24 (Same As: l 17:25: Vitamin [place] 00 B1) Thiamine No Notes: Memoria 9-24 (Same As: l 17:25: Vitamin Albert 00 B1) Thiamine No Notes: Memoria 9-24 (Same As: l 17:25: Vitamin Albert 00 B1) Saline No Notes: Memoria Flush 0.9% 9-24 Same as: l 16:23: BD [place] 00 Posiflush Sterile Sodium No 1,000 mL, Memori a Chloride 9-24 1000 l 0.9% 16:23: ml/hr, [place] (Bolus) IV 00 Infuse Over: 1 hr, Route: IV, 1,000, Drug form: INJ, ONCE, Priority: STAT, Dosing Weight 67.727 kg, Start date: 10/30/20 11:23:00 CDT, Stop date: 10/30/20 11:23:00 CDT, 0 Saline No Notes: Memoria Flush 0.9% 9-24 Same as: l 16:23: BD [place] 00 Posiflush Sterile Sodium 2020-0 No 1,000 mL, Memori a Chloride 9-24 1000 l 0.9% 16:23: ml/hr, [place] (Bolus) IV 00 Infuse Over: 1 hr, Route: IV, 1,000, Drug form: INJ, ONCE, Priority: STAT, Dosing Weight 67.727 kg, Start date: 10/30/20 11:23:00 CDT, Stop date: 10/30/20 11:23:00 CDT, 0 Saline No Notes: Memoria Flush 0.9% 9-24 Same as: l 16:23: BD [place] 00 Posiflush Sterile Sodium No 1,000 mL, Memori a Chloride 9-24 1000 l 0.9% 16:23: ml/hr, Albert (Bolus) IV 00 Infuse Over: 1 hr, Route: IV, 1,000, Drug form: INJ, ONCE, Priority: STAT, Dosing Weight 67.727 kg, Start date: 10/30/20 11:23:00 CDT, Stop date: 10/30/20 11:23:00 CDT, 0 Saline No Notes: Memoria Flush 0.9% 9-24 Same as: l 16:23: BD [place] Posiflush Sterile Sodium No 1,000 mL, Memori a Chloride 9-24 1000 l 0.9% 16:23: ml/hr, [place] (Bolus) IV 00 Infuse Over: 1 hr, Route: IV, 1,000, Drug form: INJ, ONCE, Priority: STAT, Dosing Weight 67.727 kg, Start date: 10/30/20 11:23:00 CDT, Stop date: 10/30/20 11:23:00 CDT, 0 Droperidol No Notes: Memor ia 9-24 (Same as: l 16:22: Inapsine) Droperidol No Notes: Memor ia 9-24 (Same as: l 16:22: Inapsine) Droperidol No Notes: Memor ia 9-24 (Same as: l 16:22: Inapsine) Droperidol No Notes: Memor ia 9-24 (Same as: l 16:22: Inapsine) Potassium No 40 mEq, Memor ia Chloride 5-03 Route: PO, l 21:37: Drug form: [place] 00 ERTAB, ONCE, Dosing Weight 67.727, kg, Priority: STAT, Start date: 06/08/20 16:37:00 CDT, Stop date: 06/08/20 16:37:00 CDT Potassium 2020-0 No 40 mEq, Memor ia Chloride 5-03 Route: PO, l 21:37: Drug form: [place] 00 ERTAB, ONCE, Dosing Weight 67.727, kg, Priority: STAT, Start date: 06/08/20 16:37:00 CDT, Stop date: 06/08/20 16:37:00 CDT Potassium 2020-0 No 40 mEq, Memor ia Chloride 06-08 Route: PO, l 21:37: Drug form: Albert ERTAB, ONCE, Dosing Weight 67.727, kg, Priority: STAT, Start date: 06/08/20 16:37:00 CDT, Stop date: 06/08/20 16:37:00 CDT Potassium 2020-0 No 40 mEq, Memor ia Chloride 06-08 Route: PO, l 21:37: Drug form: Albert ERTAB, ONCE, Dosing Weight 67.727, kg, Priority: STAT, Start date: 06/08/20 16:37:00 CDT, Stop date: 06/08/20 16:37:00 CDT Ondansetron 2019-02 Yes 4 mg = 1 Me moria 4 MG Oral 1-10 tab, PO, l Tablet 22:03: TID, PRN Albert [Zofran] 00 Nausea/Vom iting, # 21 tab, 0 Refill(s), Pharmacy: [facility], 177.8, cm, 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:00 CDL [employer], Height, 68.182, kg, 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:00 CDL [employer], Weight tramadol 2019-02 Yes 50 mg = 1 Alem patt hydrochlori 1-10 tab, PO, l de 50 MG 22:03: Q8H, PRN Adriana nn Oral Tablet 00 Pain, X 7 day, # 21 tab, 0 Refill(s), Pharmacy: [facility], 177.8, cm, 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:00 CDL [employer], Height, 68.182, kg, 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:00 CDL [employer], Weight Docusate 2019-02 Yes 2 tab, PO, Mem oria Sodium 50 1-10 Bedtime, l MG / 22:03: PRN Albert sennosides, 00 Constipati MCFP 8.6 MG on, X 14 Oral Tablet day, # 28 [Colace tab, 0 w/Sennoside Refill(s), s] Pharmacy: [facility], 177.8, cm, 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:00 CDL [employer], Height, 68.182, kg, 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:00 CDL [employer], Weight Acetaminoph 2019-02 Yes 500 mg = 1 Memoria en 500 MG 1-10 tab, PO, l Oral Tablet 22:03: QID, PRN He rmann 00 Fever/pain , X 14 day, # 56 tab, 0 Refill(s), Pharmacy: [facility], 177.8, cm, 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:00 CDL [employer], Height, 68.182, kg, 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:00 CDL [employer], Weight Ondansetron 2019-02 Yes 4 mg = 1 Me moria 4 MG Oral 1-10 tab, PO, l Tablet 22:03: TID, PRN Albert [Zofran] 00 Nausea/Vom iting, # 21 tab, 0 Refill(s), Pharmacy: [facility], 177.8, cm, 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:00 CDL [employer], Height, 68.182, kg, 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:00 CDL [employer], Weight tramadol 2019-02 Yes 50 mg = 1 Alem patt hydrochlori 1-10 tab, PO, l de 50 MG 22:03: Q8H, PRN Adriana nn Oral Tablet 00 Pain, X 7 day, # 21 tab, 0 Refill(s), Pharmacy: [facility], 177.8, cm, 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:00 CDL [employer], Height, 68.182, kg, 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:00 CDL [employer], Weight Docusate 2019-02 Yes 2 tab, PO, Mem oria Sodium 50 1-10 Bedtime, l MG / 22:03: PRN [place] sennosides, 00 Constipati MCFP 8.6 MG on, X 14 Oral Tablet day, # 28 [Colace tab, 0 w/Sennoside Refill(s), s] Pharmacy: [facility], 177.8, cm, 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:00 CDL [employer], Height, 68.182, kg, 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:00 CDL [employer], Weight Acetaminoph 2019-02 Yes 500 mg = 1 Memoria en 500 MG 1-10 tab, PO, l Oral Tablet 22:03: QID, PRN He rmann 00 Fever/pain , X 14 day, # 56 tab, 0 Refill(s), Pharmacy: [facility], 177.8, cm, 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:00 CDL [employer], Height, 68.182, kg, 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:00 [employer], Weight Ondansetron 2019-02 Yes 4 mg = 1 Me moria 4 MG Oral 1-10 tab, PO, l Tablet 22:03: TID, PRN [place] [Zofran] 00 Nausea/Vom iting, # 21 tab, 0 Refill(s), Pharmacy: [id number], 177.8, cm, 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:00 [employer], Height, 68.182, kg, 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:00 [employer], Weight tramadol 2019-02 Yes 50 mg = 1 Alem patt hydrochlori 1-10 tab, PO, l de 50 MG 22:03: Q8H, PRN Adriana nn Oral Tablet 00 Pain, X 7 day, # 21 tab, 0 Refill(s), Pharmacy: [facility] [id number], 177.8, cm, 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:00 [employer], Height, 68.182, kg, 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:00 [employer], Weight Docusate 2019-02 Yes 2 tab, PO, Mem oria Sodium 50 1-10 Bedtime, l MG / 22:03: PRN Albert sennosides, 00 Constipati MCFP 8.6 MG on, X 14 Oral Tablet day, # 28 [Colace tab, 0 w/Sennoside Refill(s), s] Pharmacy: [facility], 177.8, cm, 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:00 [employer], Height, 68.182, kg, 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:00 [employer], Weight Acetaminoph 2019-02 Yes 500 mg = 1 Memoria en 500 MG 1-10 tab, PO, l Oral Tablet 22:03: QID, PRN He rmann 00 Fever/pain , X 14 day, # 56 tab, 0 Refill(s), Pharmacy: [facility], 177.8, cm, 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:00 [employer], Height, 68.182, kg, 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:00 [employer], Weight Ondansetron 2019-02 Yes 4 mg = 1 Me moria 4 MG Oral 1-10 tab, PO, l Tablet 22:03: TID, PRN [place] [Zofran] 00 Nausea/Vom iting, # 21 tab, 0 Refill(s), Pharmacy: [facility] 872, 177.8, cm, 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:00 [employer], Height, 68.182, kg, 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:00 [employer], Weight tramadol 2019-02 Yes 50 mg = 1 Alem patt hydrochlori 1-10 tab, PO, l de 50 MG 22:03: Q8H, PRN Adriana nn Oral Tablet 00 Pain, X 7 day, # 21 tab, 0 Refill(s), Pharmacy: [place] [id number], 177.8, cm, 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:00 [employer], Height, 68.182, kg, 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:00 [employer], Weight Docusate 2019-02 Yes 2 tab, PO, Mem oria Sodium 50 1-10 Bedtime, l MG / 22:03: PRN [place] sennosides, 00 Constipati MCFP 8.6 MG on, X 14 Oral Tablet day, # 28 [Colace tab, 0 w/Sennoside Refill(s), s] Pharmacy: [facility] 872, 177.8, cm, 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:00 [employer], Height, 68.182, kg, 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:00 [employer], Weight Acetaminoph 2019-02 Yes 500 mg = 1 Memoria en 500 MG 1-10 tab, PO, l Oral Tablet 22:03: QID, PRN He rmann 00 Fever/pain , X 14 day, # 56 tab, 0 Refill(s), Pharmacy: [facility] 872, 177.8, cm, 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:00 [employer], Height, 68.182, kg, 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:00 [employer], Weight Morphine 2019-02 No Notes: Memoria 1-10 (Same l 19:44: as:MORPhin Albert 00 e Sulfate) Zofran 2019-02 No Notes: Memoria 1-10 (Same as: l 19:44: Zofran) [place] 00 MEDICATION WASTE Product Size: 4 mg Product Wasted: ___ mg Acetaminoph 2019-02 No Notes: Do M emoria en 300 MG / 1-10 not exceed l Codeine 19:44: 4gm/day of Herm rachid Phosphate 00 acetaminop 30 MG Oral hen. (Same Tablet as: [Tylenol Tylenol with with Codeine #3] Codeine # 3) Morphine 2019-02 No Notes: Memoria 1-10 (Same l 19:44: as:MORPhin Albert 00 e Sulfate) Zofran 2019-02 No Notes: Memoria 1-10 (Same as: l 19:44: Zofran) Albert 00 MEDICATION WASTE Product Size: 4 mg Product Wasted: ___ mg Acetaminoph 2019-02 No Notes: Do M emoria en 300 MG / 1-10 not exceed l Codeine 19:44: 4gm/day of Herm rachid Phosphate 00 acetaminop 30 MG Oral hen. (Same Tablet as: [Tylenol Tylenol with with Codeine #3] Codeine # 3) Morphine 2019-02 No Notes: Memoria 1-10 (Same l 19:44: as:MORPhin Albert 00 e Sulfate) Zofran 2019-02 No Notes: Memoria 1-10 (Same as: l 19:44: Zofran) Albert 00 MEDICATION WASTE Product Size: 4 mg Product Wasted: ___ mg Acetaminoph 2019-02 No Notes: Do M emoria en 300 MG / 1-10 not exceed l Codeine 19:44: 4gm/day of Herm rachid Phosphate 00 acetaminop 30 MG Oral hen. (Same Tablet as: [Tylenol Tylenol with with Codeine #3] Codeine # 3) Morphine 2019-02 No Notes: Memoria 1-10 (Same l 19:44: as:MORPhin Albert 00 e Sulfate) Zofran 2019-02 No Notes: Memoria 1-10 (Same as: l 19:44: Zofran) Albert 00 MEDICATION WASTE Product Size: 4 mg Product Wasted: ___ mg Acetaminoph 2019- No Notes: Do M emoria en 300 MG / 1-10 not exceed l Codeine 19:44: 4gm/day of Herm rachid Phosphate 00 acetaminop 30 MG Oral hen. (Same Tablet as: [Tylenol Tylenol with with Codeine #3] Codeine # 3) Fentanyl 2019-02 No 25 Memoria 1-10 microgram, l 19:30: Route: Albert 00 IVP, Q5Min, Dosing Weight 68.182, kg, PRN Pain Score 4-6, Priority: Routine, Start date: 12/17/19 13:30:00 [employer], Duration: 4 doses or times, Stop date: Limited # of times Hydromorpho 2019-02 No 0.5 mg, Mem oria ne 1-10 Route: l 19:30: IVP, Albert 00 Q5Min, Dosing Weight 68.182, kg, PRN Pain Score 7-10, Start date: 12/17/19 13:30:00 [employer], Duration: 4 doses or times, Stop date: Limited # of times Flumazenil 2019-02 No 0.2 mg, Alem patt 1-10 Route: l 19:30: IVP, PRN, [place] 00 Dosing Weight 68.182, kg, PRN Benzodiaze pine Reversal, Initial dose, Start date: 12/17/19 13:30:00 [employer], Duration: 30 day, Stop date: 01/16/20 13:29:00 [employer] Naloxone 2019-02 No 0.4 mg, Memori a 1-10 Route: l 19:30: IVP, Albert 00 Q2MIN, Dosing Weight 68.182, kg, PRN Narcotic Reversal, Start date: 12/17/19 13:30:00 [employer], Duration: 8 doses or times, Stop date: Limited # of times Meperidine 2019-02 No 12.5 mg, Mem oria 1-10 Route: l 19:30: IVP, [place] 00 Q30Min, Dosing Weight 68.182, kg, PRN Other -See Comment, For shivering, Start date: 12/17/19 13:30:00 [employer], Duration: 2 doses or times, Stop date: Limited # of times Ondansetron 2019-02 No 4 mg, Memor ia 1-10 Route: l 19:30: IVP, ONCE, [place] Dosing Weight 68.182, kg, PRN Nausea & Vomiting, Start date: 12/17/19 13:30:00 [employer] Fentanyl 2019- No 25 Memoria 1-10 microgram, l 19:30: Route: Albert 00 IVP, Q5Min, Dosing Weight 68.182, kg, PRN Pain Score 4-6, Priority: Routine, Start date: 12/17/19 13:30:00 [employer], Duration: 4 doses or times, Stop date: Limited # of times Hydromorpho 2019- No 0.5 mg, Mem oria ne 1-10 Route: l 19:30: IVP, [place] 00 Q5Min, Dosing Weight 68.182, kg, PRN Pain Score 7-10, Start date: 12/17/19 13:30:00 [employer], Duration: 4 doses or times, Stop date: Limited # of times Flumazenil 2019-02 No 0.2 mg, Alem patt 1-10 Route: l 19:30: IVP, PRN, Albert 00 Dosing Weight 68.182, kg, PRN Benzodiaze pine Reversal, Initial dose, Start date: 12/17/19 13:30:00 [employer], Duration: 30 day, Stop date: 01/16/20 13:29:00 [employer] Naloxone 2019- No 0.4 mg, Memori a 1-10 Route: l 19:30: IVP, Albert 00 Q2MIN, Dosing Weight 68.182, kg, PRN Narcotic Reversal, Start date: 12/17/19 13:30:00 [employer], Duration: 8 doses or times, Stop date: Limited # of times Fentanyl 2019- No 25 Memoria 1-10 microgram, l 19:30: Route: Albert 00 IVP, Q5Min, Dosing Weight 68.182, kg, PRN Pain Score 4-6, Priority: Routine, Start date: 12/17/19 13:30:00 [employer], Duration: 4 doses or times, Stop date: Limited # of times Hydromorpho 2019- No 0.5 mg, Mem oria ne 1-10 Route: l 19:30: IVP, [place] 00 Q5Min, Dosing Weight 68.182, kg, PRN Pain Score 7-10, Start date: 12/17/19 13:30:00 [employer], Duration: 4 doses or times, Stop date: Limited # of times Flumazenil 2020-1 No 0.2 mg, Alem patt 1-10 Route: l 19:30: IVP, PRN, Albert 00 Dosing Weight 68.182, kg, PRN Benzodiaze pine Reversal, Initial dose, Start date: 12/17/19 13:30:00 [employer], Duration: 30 day, Stop date: 01/16/20 13:29:00 [employer] Naloxone 2020-1 No 0.4 mg, Memori a 1-10 Route: l 19:30: IVP, [place] 00 Q2MIN, Dosing Weight 68.182, kg, PRN Narcotic Reversal, Start date: 12/17/19 13:30:00 [employer], Duration: 8 doses or times, Stop date: Limited # of times Meperidine 2020-1 No 12.5 mg, Mem oria 1-10 Route: l 19:30: IVP, Albert 00 Q30Min, Dosing Weight 68.182, kg, PRN Other -See Comment, For shivering, Start date: 12/17/19 13:30:00 [employer], Duration: 2 doses or times, Stop date: Limited # of times Meperidine 2020-1 No 12.5 mg, Mem oria 1-10 Route: l 19:30: IVP, [place] 00 Q30Min, Dosing Weight 68.182, kg, PRN Other -See Comment, For shivering, Start date: 12/17/19 13:30:00 [employer], Duration: 2 doses or times, Stop date: Limited # of times Ondansetron 2020-1 No 4 mg, Memor ia 1-10 Route: l 19:30: IVP, ONCE, Dosing Weight 68.182, kg, PRN Nausea & Vomiting, Start date: 12/17/19 13:30:00 [employer] Ondansetron 2020-1 No 4 mg, Memor ia 1-10 Route: l 19:30: IVP, ONCE, Dosing Weight 68.182, kg, PRN Nausea & Vomiting, Start date: 12/17/19 13:30:00 [employer] Fentanyl 2020-1 No 25 Memoria 1-10 microgram, l 19:30: Route: Albert 00 IVP, Q5Min, Dosing Weight 68.182, kg, PRN Pain Score 4-6, Priority: Routine, Start date: 12/17/19 13:30:00 [employer], Duration: 4 doses or times, Stop date: Limited # of times Hydromorpho 2019- No 0.5 mg, Mem oria ne 1-10 Route: l 19:30: IVP, [place] 00 Q5Min, Dosing Weight 68.182, kg, PRN Pain Score 7-10, Start date: 12/17/19 13:30:00 [employer], Duration: 4 doses or times, Stop date: Limited # of times Flumazenil 2019- No 0.2 mg, Alem patt 1-10 Route: l 19:30: IVP, PRN, Dosing Weight 68.182, kg, PRN Benzodiaze pine Reversal, Initial dose, Start date: 12/17/19 13:30:00 [employer], Duration: 30 day, Stop date: 01/16/20 13:29:00 [employer] Naloxone 2019- No 0.4 mg, Memori a 1-10 Route: l 19:30: IVP, Q2MIN, Dosing Weight 68.182, kg, PRN Narcotic Reversal, Start date: 12/17/19 13:30:00 [employer], Duration: 8 doses or times, Stop date: Limited # of times Meperidine 2019- No 12.5 mg, Mem oria 1-10 Route: l 19:30: IVP, 00 Q30Min, Dosing Weight 68.182, kg, PRN Other -See Comment, For shivering, Start date: 12/17/19 13:30:00 [employer], Duration: 2 doses or times, Stop date: Limited # of times Ondansetron 2019- No 4 mg, Memor ia 1-10 Route: l 19:30: IVP, ONCE, Dosing Weight 68.182, kg, PRN Nausea & Vomiting, Start date: 12/17/19 13:30:00 [employer] glycopyrrol 2020-1 No Route: IV, Memoria ate (ANES) -10 Drug form: l 19:20: INJ, ONCE, Stop date: 12/17/19 13:20:00 [employer] neostigmine 2019-02 No Route: IV, Memoria (ANES) 1-10 Drug form: l 19:20: INJ, ONCE, Stop date: 12/17/19 13:20:00 [employer] glycopyrrol 2019- No Route: IV, Memoria ate (ANES) 1-10 Drug form: l 19:20: INJ, ONCE, Stop date: 12/17/19 13:20:00 [employer] neostigmine 2019-02 No Route: IV, Memoria (ANES) 1-10 Drug form: l 19:20: INJ, ONCE, Stop date: 12/17/19 13:20:00 [employer] glycopyrrol 2019-02 No Route: IV, Memoria ate (ANES) 1-10 Drug form: l 19:20: INJ, ONCE, Stop date: 12/17/19 13:20:00 [employer] neostigmine 2019-02 No Route: IV, Memoria (ANES) 1-10 Drug form: l 19:20: INJ, ONCE, Stop date: 12/17/19 13:20:00 [employer] glycopyrrol 2019-02 No Route: IV, Memoria ate (ANES) 1-10 Drug form: l 19:20: INJ, ONCE, Stop date: 12/17/19 13:20:00 [employer] neostigmine 2019-02 No Route: IV, Memoria (ANES) 1-10 Drug form: l 19:20: INJ, ONCE, Stop date: 12/17/19 13:20:00 [employer] ceFAZolin 2019-02 No Route: IV, Me moria (ANES) 1-10 Drug form: l 19:01: INJ, ONCE, Stop date: 12/17/19 13:01:00 [employer] ondansetron 2019- No Route: IV, Memoria (ANES) 1-10 Drug form: l 19:01: INJ, ONCE, Stop date: 12/17/19 13:01:00 [employer] ceFAZolin 2019- No Route: IV, Me moria (ANES) 1-10 Drug form: l 19:01: INJ, ONCE, Stop date: 12/17/19 13:01:00 [employer] ondansetron 2019-02 No Route: IV, Memoria (ANES) 1-10 Drug form: l 19:01: INJ, ONCE, Albert 00 Stop date: 12/17/19 13:01:00 [employer] ceFAZolin 2019- No Route: IV, Me moria (ANES) 1-10 Drug form: l 19:01: INJ, ONCE, Albert 00 Stop date: 12/17/19 13:01:00 [employer] ondansetron 2019-02 No Route: IV, Memoria (ANES) 1-10 Drug form: l 19:01: INJ, ONCE, Albert 00 Stop date: 12/17/19 13:01:00 CD[employer] ceFAZolin 2019-02 No Route: IV, Me moria (ANES) 1-10 Drug form: l 19:01: INJ, ONCE, Albert 00 Stop date: 12/17/19 13:01:00 [employer] ondansetron 2019-02 No Route: IV, Memoria (ANES) 1-10 Drug form: l 19:01: INJ, ONCE, Suther[place] 00 Stop date: 12/17/19 13:01:00 [employer] midazolam 2019-02 No Route: IV, Me moria (ANES) 1-10 Drug form: l 18:56: SOLN, [place] 00 ONCE, Stop date: 12/17/19 12:56:00 [employer] lidocaine 2019- No Route: IV, Me moria (ANES) 1-10 Drug form: l 18:56: INJ, ONCE, Albert 00 Stop date: 12/17/19 12:56:00 [employer] fentaNYL 2019- No Route: IV, Mem oria (ANES) 1-10 Drug form: l 18:56: INJ, ONCE, Albert 00 Stop date: 12/17/19 12:56:00 [employer] propofol 2019- No Route: IV, Mem oria (ANES) 1-10 Drug form: l 18:56: INJ, ONCE, Albert 00 Stop date: 12/17/19 12:56:00 [employer] rocuronium 2019- No Route: IV, M emoria (ANES) 1-10 Drug form: l 18:56: INJ, ONCE, Albert 00 Stop date: 12/17/19 12:56:00 CD[employer] midazolam 2019-02 No Route: IV, Me moria (ANES) 1-10 Drug form: l 18:56: SOLN, [place] 00 ONCE, Stop date: 12/17/19 12:56:00 CDL [employer] lidocaine 2019-02 No Route: IV, Me moria (ANES) 1-10 Drug form: l 18:56: INJ, ONCE, Albert 00 Stop date: 12/17/19 12:56:00 CDL [employer] fentaNYL 2019-02 No Route: IV, Mem oria (ANES) 1-10 Drug form: l 18:56: INJ, ONCE, Albert 00 Stop date: 12/17/19 12:56:00 CDL [employer] propofol 2019-02 No Route: IV, Mem oria (ANES) 1-10 Drug form: l 18:56: INJ, ONCE, Albert 00 Stop date: 12/17/19 12:56:00 CDL [employer] rocuronium 2019-02 No Route: IV, M emoria (ANES) 1-10 Drug form: l 18:56: INJ, ONCE, Stop date: 12/17/19 12:56:00 [employer] midazolam 2019-02 No Route: IV, Me moria (ANES) 1-10 Drug form: l 18:56: SOLN, Albert 00 ONCE, Stop date: 12/17/19 12:56:00 CDL [employer] lidocaine 2019-02 No Route: IV, Me moria (ANES) 1-10 Drug form: l 18:56: INJ, ONCE, [place]uther[place] 00 Stop date: 12/17/19 12:56:00 CDL [employer] fentaNYL 2019-02 No Route: IV, Mem oria (ANES) 1-10 Drug form: l 18:56: INJ, ONCE, Albert 00 Stop date: 12/17/19 12:56:00 CDL [employer] propofol 2019-02 No Route: IV, Mem oria (ANES) 1-10 Drug form: l 18:56: INJ, ONCE, Albert 00 Stop date: 12/17/19 12:56:00 CDL [employer] rocuronium 2019-02 No Route: IV, M emoria (ANES) 1-10 Drug form: l 18:56: INJ, ONCE, Albert 00 Stop date: 12/17/19 12:56:00 CDL [employer] midazolam 2019-02 No Route: IV, Me moria (ANES) 1-10 Drug form: l 18:56: SOLN, ONCE, Stop date: 12/17/19 12:56:00 CDL [employer] lidocaine 2019-02 No Route: IV, Me moria (ANES) 1-10 Drug form: l 18:56: INJ, ONCE, Stop date: 12/17/19 12:56:00 CDL [employer] fentaNYL 2019-02 No Route: IV, Mem oria (ANES) 1-10 Drug form: l 18:56: INJ, ONCE, Stop date: 12/17/19 12:56:00 CDL [employer] propofol 2019-02 No Route: IV, Mem oria (ANES) 1-10 Drug form: l 18:56: INJ, ONCE, Stop date: 12/17/19 12:56:00 CDL [employer] rocuronium 2019-02 No Route: IV, M emoria (ANES) 1-10 Drug form: l 18:56: INJ, ONCE, Stop date: 12/17/19 12:56:00 [employer] Lactated 2019-02 No Route: IV, Mem oria Ringers 1-10 Total l Injection 18:05: Volume: Adriana nn IV (ANES) 00 1,000, 1000 mL Start date: 12/17/19 12:05:00 [employer], Stop date: 12/17/19 13:05:00 CD[employer] Lactated 2019-02 No Route: IV, Mem oria Ringers 1-10 Total l Injection 18:05: Volume: Adriana nn IV (ANES) 00 1,000, 1000 mL Start date: 12/17/19 12:05:00 [employer], Stop date: 12/17/19 13:05:00 CDL [employer] Lactated 2019-02 No Route: IV, Mem oria Ringers 1-10 Total l Injection 18:05: Volume: Adriana nn IV (ANES) 00 1,000, 1000 mL Start date: 12/17/19 12:05:00 CD[employer], Stop date: 12/17/19 13:05:00 CDL [employer] Lactated 2019-02 No Route: IV, Mem oria Ringers 1-10 Total l Injection 18:05: Volume: Adriana nn IV (ANES) 00 1,000, 1000 mL Start date: 12/17/19 12:05:00 [employer], Stop date: 12/17/19 13:05:00 [employer] Calcium 2019-1 No 1,000 mL, Memor ia Chloride 1-10 Rate: 75 l 0.0014 16:50: ml/hr, Sutherland MEQ/ML / 00 Infuse Potassium over: 13.3 Chloride hr, Route: 0.004 IV, Dosing MEQ/ML / Weight Sodium 68.182 kg, Chloride Total 0.103 Volume: MEQ/ML / 1,000, Sodium Start Lactate date: 0.028 20 MEQ/ML 10:50:00 Injectable CDL [employer], Solution Duration: 30 day, Stop date: 01/16/20 10:49:00 [employer], 1.84, m2 Calcium 2019-1 No 1,000 mL, Memor ia Chloride 1-10 Rate: 75 l 0.0014 16:50: ml/hr, [place]land MEQ/ML / 00 Infuse Potassium over: 13.3 Chloride hr, Route: 0.004 IV, Dosing MEQ/ML / Weight Sodium 68.182 kg, Chloride Total 0.103 Volume: MEQ/ML / 1,000, Sodium Start Lactate date: 0.028 12/17/19 MEQ/ML 10:50:00 Injectable CD[employer], Solution Duration: 30 day, Stop date: 01/16/20 10:49:00 [employer], 1.84, m2 Calcium 2019-02 No 1,000 mL, Memor ia Chloride 1-10 Rate: 75 l 0.0014 16:50: ml/hr, Albert MEQ/ML / 00 Infuse Potassium over: 13.3 Chloride hr, Route: 0.004 IV, Dosing MEQ/ML / Weight Sodium 68.182 kg, Chloride Total 0.103 Volume: MEQ/ML / 1,000, Sodium Start Lactate date: 0.028 12/17/19 MEQ/ML 10:50:00 Injectable CD[employer], Solution Duration: 30 day, Stop date: 01/16/20 10:49:00 [employer], 1.84, m2 Calcium 2019-02 No 1,000 mL, Memor ia Chloride 1-10 Rate: 75 l 0.0014 16:50: ml/hr, [place] MEQ/ML / 00 Infuse Potassium over: 13.3 Chloride hr, Route: 0.004 IV, Dosing MEQ/ML / Weight Sodium 68.182 kg, Chloride Total 0.103 Volume: MEQ/ML / 1,000, Sodium Start Lactate date: 0.028 12/17/19 MEQ/ML 10:50:00 Injectable CD[employer], Solution Duration: 30 day, Stop date: 01/16/20 10:49:00 [employer], 1.84, m2 efavirenz 2019- No 1 tab, Memori a 600 MG / 1-10 Route: PO, l emtricitabi 03:00: Drug Form: [place]utherland ne 200 MG / 00 TAB, Tenofovir Dosing disoproxil Weight fumarate 68.182, 300 MG Oral kg, Tablet Bedtime, [Atripla] Start date: 12/16/19 21:00:00 [employer], Duration: 30 day, Stop date: 01/14/20 21:00:00 CD[employer] efavirenz 2019-02 No 1 tab, Memori a 600 MG / 1-10 Route: PO, l emtricitabi 03:00: Drug Form: Albert ne 200 MG / 00 TAB, Tenofovir Dosing disoproxil Weight fumarate 68.182, 300 MG Oral kg, Tablet Bedtime, [Atripla] Start date: 12/16/19 21:00:00 CDL [employer], Duration: 30 day, Stop date: 01/14/20 21:00:00 CDL [employer] efavirenz 2019-02 No 1 tab, Memori a 600 MG / 1-10 Route: PO, l emtricitabi 03:00: Drug Form: [place] ne 200 MG / 00 TAB, Tenofovir Dosing disoproxil Weight fumarate 68.182, 300 MG Oral kg, Tablet Bedtime, [Atripla] Start date: 12/16/19 21:00:00 CDL [employer], Duration: 30 day, Stop date: 01/14/20 21:00:00 CDL [employer] efavirenz 2019-02 No 1 tab, Memori a 600 MG / 1-10 Route: PO, l emtricitabi 03:00: Drug Form: S[place]land ne 200 MG / 00 TAB, Tenofovir Dosing disoproxil Weight fumarate 68.182, 300 MG Oral kg, Tablet Bedtime, [Atripla] Start date: 12/16/19 21:00:00 CDL [employer], Duration: 30 day, Stop date: 01/14/20 21:00:00 CD[employer] Pepcid 2019-02 No Notes: Memoria 02-14 (Same as: l 15:00: Pepcid) Albert Folic Acid 2019-02 No Notes: Memor ia 1-09 (Same as: l 15:00: Folvite) Albert multivitami 2019-02 No Notes: Alem patt n 1-09 (Same l 15:00: as:One Tab [place] 00 Daily, Tab-A-Smiley + Beta Carotene) Give with food. Pepcid 2019-02 No Notes: Memoria 1-09 (Same as: l 15:00: Pepcid) Albert Folic Acid 2019-02 No Notes: Memor ia 1-09 (Same as: l 15:00: Folvite) Ablert multivitami 2019-02 No Notes: Alem patt n 1-09 (Same l 15:00: as:One Tab [place] 00 Daily, Tab-A-Smiley + Beta Carotene) Give with food. Pepcid 2019-02 No Notes: Memoria 1- (Same as: l 15:00: Pepcid) Albert Folic Acid 2019-02 No Notes: Memor ia 1-09 (Same as: l 15:00: Folvite) Albert multivitami 2019-02 No Notes: Alem patt n 1-09 (Same l 15:00: as:One Tab Albert 00 Daily, Tab-A-Smiley + Beta Carotene) Give with food. Pepcid 2019-02 No Notes: Memoria 1-09 (Same as: l 15:00: Pepcid) Albert Folic Acid 2019-02 No Notes: Memor ia 1-09 (Same as: l 15:00: Folvite) Albert multivitami 2019-02 No Notes: Alem patt n 1-09 (Same l 15:00: as:One Tab [place] 00 Daily, Tab-A-Smiley + Beta Carotene) Give with food. Potassium 2019-02 No Notes: Memori a Chloride 1-09 Infuse at l 14:00: a rate of Albert 00 10 mEq/hr. (Same as: KCL) Potassium 2019-02 No Notes: Memori a Chloride 1-09 Infuse at l 14:00: a rate of [place] 00 10 mEq/hr. (Same as: KCL) Potassium 2019-02 No Notes: Memori a Chloride 1-09 Infuse at l 14:00: a rate of Albert 00 10 mEq/hr. (Same as: KCL) Potassium 2019-02 No Notes: Memori a Chloride - Infuse at l 14:00: a rate of [place] 00 10 mEq/hr. (Same as: KCL) influenza 2019-02 No Notes: Memori a virus - (Same as: l vaccine, 01:10: Fluzone Lennox n inactivated 59 Quadrivale nt, Fluarix Quadrivale nt) For patients 6 - 35 months of age (0.5 mL IM) For 3 years of age and older (0.5 mL IM) Shake well before use influenza 2019-02 No Notes: Memori a virus 02-14 (Same as: l vaccine, 01:10: Fluzone Lennox n inactivated 59 Quadrivale nt, Fluarix Quadrivale nt) For patients 6 - 35 months of age (0.5 mL IM) For 3 years of age and older (0.5 mL IM) Shake well before use influenza 2019-02 No Notes: Memori a virus 02-14 (Same as: l vaccine, 01:10: Fluzone Lennox n inactivated 59 Quadrivale nt, Fluarix Quadrivale nt) For patients 6 - 35 months of age (0.5 mL IM) For 3 years of age and older (0.5 mL IM) Shake well before use influenza 2019-02 No Notes: Memori a virus 02-14 (Same as: l vaccine, 01:10: Fluzone Lennox n inactivated 59 Quadrivale nt, Fluarix Quadrivale nt) For patients 6 - 35 months of age (0.5 mL IM) For 3 years of age and older (0.5 mL IM) Shake well before use Thiamine 2019-02 No Notes: Memoria 1- (Same As: l 00:23: Vitamin Albert 00 B1) Thiamine 2019-02 No Notes: Memoria 1- (Same As: l 00:23: Vitamin Albert 00 B1) Thiamine 2019-02 No Notes: Memoria 1- (Same As: l 00:23: Vitamin [place] 00 B1) Thiamine 2019-02 No Notes: Memoria 1- (Same As: l 00:23: Vitamin Albert 00 B1) Hydralazine 2019-02 No Notes: Alem patt 1-09 (Same as: l 00:21: Apresoline Albert 00 ) Push over 5 minutes Hydralazine 2019- No Notes: Alem patt 1-09 (Same as: l 00:21: Apresoline Albert 00 ) Push over 5 minutes Hydralazine 2019- No Notes: Alem patt 1-09 (Same as: l 00:21: Apresoline [place] 00 ) Push over 5 minutes Hydralazine 2019- No Notes: Alem patt 1-09 (Same as: l 00:21: Apresoline Albert 00 ) Push over 5 minutes normal 2019- No 1,000 mL, Memori a saline 0.9% 1-09 Rate: 150 l IV 1,000 mL 00:02: ml/hr, Herm rachid 00 Infuse over: 6.7 hr, Route: IV, Dosing Weight 65.909 kg, Total Volume: 1,000, Start date: 12/15/19 18:02:00 CD[employer], Duration: 30 day, Stop date: 01/14/20 18:01:00 CDL [employer], 1.81, m2, 0 normal 2019- No 1,000 mL, Memori a saline 0.9% 1-09 Rate: 150 l IV 1,000 mL 00:02: ml/hr, Herm rachid 00 Infuse over: 6.7 hr, Route: IV, Dosing Weight 65.909 kg, Total Volume: 1,000, Start date: 12/15/19 18:02:00 CDL [employer], Duration: 30 day, Stop date: 01/14/20 18:01:00 CDL [employer], 1.81, m2, 0 normal 2019- No 1,000 mL, Memori a saline 0.9% 1-09 Rate: 150 l IV 1,000 mL 00:02: ml/hr, Herm rachid 00 Infuse over: 6.7 hr, Route: IV, Dosing Weight 65.909 kg, Total Volume: 1,000, Start date: 12/15/19 18:02:00 CDL [employer], Duration: 30 day, Stop date: 01/14/20 18:01:00 CDL [employer], 1.81, m2, 0 normal 2019- No 1,000 mL, Memori a saline 0.9% 1-09 Rate: 150 l IV 1,000 mL 00:02: ml/hr, Herm rachid 00 Infuse over: 6.7 hr, Route: IV, Dosing Weight 65.909 kg, Total Volume: 1,000, Start date: 12/15/19 18:02:00 CDL [employer], Duration: 30 day, Stop date: 01/14/20 18:01:00 [employer], 1.81, m2, 0 Morphine 2019-02 No Notes: Memoria 1-09 (Same l 00:00: as:MORPhin [place]uther[place] 00 e Sulfate) Potassium 2019-02 No Notes: Memori a Chloride 1-09 Infuse at l 00:00: a rate of [place] 00 10 mEq/hr. (Same as: KCL) Morphine 2019-02 No Notes: Memoria 1-09 (Same l 00:00: as:MORPhin Albert 00 e Sulfate) Potassium 2019-02 No Notes: Memori a Chloride 1-09 Infuse at l 00:00: a rate of [place] 00 10 mEq/hr. (Same as: KCL) Morphine 2019-02 No Notes: Memoria 1-09 (Same l 00:00: as:MORPhin [place] 00 e Sulfate) Potassium 2019-02 No Notes: Memori a Chloride 1-09 Infuse at l 00:00: a rate of [place] 00 10 mEq/hr. (Same as: KCL) Morphine 2019-02 No Notes: Memoria 1-09 (Same l 00:00: as:MORPhin [place] 00 e Sulfate) Potassium 2019-02 No Notes: Memori a Chloride 1-09 Infuse at l 00:00: a rate of Albert 00 10 mEq/hr. (Same as: KCL) Dextrose 2019-02 No 12.5 gm, Memor ia 50% Syringe 02-13 25 mL, l (D50W) 23:58: Route: Albert 00 IVP, Drug Form: INJ, Dosing Weight 65.909, kg, PRN, PRN Blood Glucose Results, Start date: 12/15/19 17:58:00 CDL [employer], Duration: 30 day, Stop date: 01/14/20 17:57:00 [employer], 0 Glucagon 2019-02 No 1 mg, Memoria 02-13 Route: IM, l 23:58: Drug form: Albert 00 PDR/INJ, PRN, Dosing Weight 65.909, kg, PRN Blood Glucose Results, Start date: 12/15/19 17:58:00 CDL [employer], Duration: 30 day, Stop date: 01/14/20 17:57:00 CDL [employer], 0 Ondansetron 2020- No Notes: Alem patt 1-08 (Same as: l 23:58: Zofran) MEDICATION WASTE Product Size: 4 mg Product Wasted: ___ mg Acetaminoph 2019- No Notes: Do M emoria en 02-13 not exceed l 23:58: 4 gm/day. [place] 00 (Same as: Tylenol) Dextrose 2019- No 12.5 gm, Memor ia 50% Syringe -08 25 mL, l (D50W) 23:58: Route: Albert 00 IVP, Drug Form: INJ, Dosing Weight 65.909, kg, PRN, PRN Blood Glucose Results, Start date: 12/15/19 17:58:00 CDL [employer], Duration: 30 day, Stop date: 01/14/20 17:57:00 CDL [employer], 0 Glucagon 2019- No 1 mg, Memoria 02-13 Route: IM, l 23:58: Drug form: [place] 00 PDR/INJ, PRN, Dosing Weight 65.909, kg, PRN Blood Glucose Results, Start date: 12/15/19 17:58:00 CDL [employer], Duration: 30 day, Stop date: 01/14/20 17:57:00 CDL [employer], 0 Ondansetron 2019- No Notes: Alem patt -08 (Same as: l 23:58: Zofran) MEDICATION WASTE Product Size: 4 mg Product Wasted: ___ mg Acetaminoph 2019- No Notes: Do M emoria en 02-13 not exceed l 23:58: 4 gm/day. Albert 00 (Same as: Tylenol) Dextrose 2019- No 12.5 gm, Memor ia 50% Syringe 1-08 25 mL, l (D50W) 23:58: Route: Albert 00 IVP, Drug Form: INJ, Dosing Weight 65.909, kg, PRN, PRN Blood Glucose Results, Start date: 12/15/19 17:58:00 CDL [employer], Duration: 30 day, Stop date: 01/14/20 17:57:00 CDL [employer], 0 Glucagon 2019- No 1 mg, Memoria 02-13 Route: IM, l 23:58: Drug form: [place] 00 PDR/INJ, PRN, Dosing Weight 65.909, kg, PRN Blood Glucose Results, Start date: 12/15/19 17:58:00 CDL [employer], Duration: 30 day, Stop date: 01/14/20 17:57:00 CDL [employer], 0 Ondansetron 2019-02 No Notes: Alem patt 02-13 (Same as: l 23:58: Zofran) MEDICATION WASTE Product Size: 4 mg Product Wasted: ___ mg Acetaminoph 2019-02 No Notes: Do M emoria en 02-13 not exceed l 23:58: 4 gm/day. (Same as: Tylenol) Dextrose 2019-02 No 12.5 gm, Memor ia 50% Syringe 02-13 25 mL, l (D50W) 23:58: Route: [place] 00 IVP, Drug Form: INJ, Dosing Weight 65.909, kg, PRN, PRN Blood Glucose Results, Start date: 12/15/19 17:58:00 CDL [employer], Duration: 30 day, Stop date: 01/14/20 17:57:00 CDL [employer], 0 Glucagon 2019-02 No 1 mg, Memoria 02-13 Route: IM, l 23:58: Drug form: [place] 00 PDR/INJ, PRN, Dosing Weight 65.909, kg, PRN Blood Glucose Results, Start date: 12/15/19 17:58:00 CDL [employer], Duration: 30 day, Stop date: 01/14/20 17:57:00 CDL [employer], 0 Ondansetron 2019-02 No Notes: Alem patt 02-13 (Same as: l 23:58: Zofran) MEDICATION WASTE Product Size: 4 mg Product Wasted: ___ mg Acetaminoph 2019-02 No Notes: Do M emoria en 02-13 not exceed l 23:58: 4 gm/day. (Same as: Tylenol) Morphine 1 No 4 mg, Memoria 02-13 Route: l 22:42: IVP, ONCE, Dosing Weight 65.909, kg, Priority: STAT, Start date: 12/15/19 16:42:00 CDL [employer], Stop date: 12/15/19 16:42:00 [employer] Morphine 2019- No 4 mg, Memoria 1-08 Route: l 22:42: IVP, ONCE, Dosing Weight 65.909, kg, Priority: STAT, Start date: 12/15/19 16:42:00 CDL [employer], Stop date: 12/15/19 16:42:00 CDL [employer] Morphine 2019-02 No 4 mg, Memoria -08 Route: l 22:42: IVP, ONCE, Dosing Weight 65.909, kg, Priority: STAT, Start date: 12/15/19 16:42:00 CDL [employer], Stop date: 12/15/19 16:42:00 CDL [employer] Morphine 2019- No 4 mg, Memoria 1-08 Route: l 22:42: IVP, ONCE, Dosing Weight 65.909, kg, Priority: STAT, Start date: 12/15/19 16:42:00 CDL [employer], Stop date: 12/15/19 16:42:00 CDL [employer] Saline 2019-02 No Notes: Memoria Flush 0.9% 08 (Same as: l 16:41: BD [place] Posiflush) Sodium 2019-02 No 1,000 mL, Memori a Chloride -08 Infuse l 0.9% 16:41: Over: 1 [place] (Bolus) IV 00 hr, Route: IV, ONCE, Priority: STAT, Dosing Weight 62.898 kg, Start date: 12/15/19 10:41:00 CDL [employer], Stop date: 12/15/19 10:41:00 CDL [employer] Morphine 2019- No 4 mg, Memoria -08 Route: l 16:41: IVP, ONCE, Dosing Weight 62.898, kg, Priority: STAT, Start date: 12/15/19 10:41:00 CDL [employer], Stop date: 12/15/19 10:41:00 CD[employer] Ondansetron 2019-02 No 4 mg, Memor ia 08 Route: l 16:41: IVP, ONCE, Dosing Weight 62.898, kg, Priority: STAT, Start date: 12/15/19 10:41:00 CDL [employer], Stop date: 12/15/19 10:41:00 CDL [employer] Saline 2020-1 No Notes: Memoria Flush 0.9% 1-08 (Same as: l 16:41: BD [place] 00 Posiflush) Sodium 2020-1 No 1,000 mL, Memori a Chloride 1-08 Infuse l 0.9% 16:41: Over: 1 Albert (Bolus) IV 00 hr, Route: IV, ONCE, Priority: STAT, Dosing Weight 62.898 kg, Start date: 12/15/19 10:41:00 CDL [employer], Stop date: 12/15/19 10:41:00 CDL [employer] Morphine 2019- No 4 mg, Memoria 1-08 Route: l 16:41: IVP, ONCE, Albert Dosing Weight 62.898, kg, Priority: STAT, Start date: 12/15/19 10:41:00 CDL [employer], Stop date: 12/15/19 10:41:00 CDL [employer] Ondansetron 2019- No 4 mg, Memor ia 1-08 Route: l 16:41: IVP, ONCE, Albert Dosing Weight 62.898, kg, Priority: STAT, Start date: 12/15/19 10:41:00 CDL [employer], Stop date: 12/15/19 10:41:00 CDL [employer] Saline 2020-1 No Notes: Memoria Flush 0.9% 1-08 (Same as: l 16:41: BD Albert 00 Posiflush) Sodium 2020- No 1,000 mL, Memori a Chloride 1-08 Infuse l 0.9% 16:41: Over: 1 Albert (Bolus) IV 00 hr, Route: IV, ONCE, Priority: STAT, Dosing Weight 62.898 kg, Start date: 12/15/19 10:41:00 CDL [employer], Stop date: 12/15/19 10:41:00 CDL [employer] Morphine 2019- No 4 mg, Memoria 1-08 Route: l 16:41: IVP, ONCE, [place] Dosing Weight 62.898, kg, Priority: STAT, Start date: 12/15/19 10:41:00 CDL [employer], Stop date: 12/15/19 10:41:00 CDL [employer] Ondansetron 2019- No 4 mg, Memor ia 1-08 Route: l 16:41: IVP, ONCE, Albert Dosing Weight 62.898, kg, Priority: STAT, Start date: 12/15/19 10:41:00 CDL [employer], Stop date: 12/15/19 10:41:00 CDL [employer] Saline 2019- No Notes: Memoria Flush 0.9% 02-13 (Same as: l 16:41: BD [place] Posiflush) Sodium 2019-02 No 1,000 mL, Memori a Chloride 02-13 Infuse l 0.9% 16:41: Over: 1 [place] (Bolus) IV 00 hr, Route: IV, ONCE, Priority: STAT, Dosing Weight 62.898 kg, Start date: 12/15/19 10:41:00 CDL [employer], Stop date: 12/15/19 10:41:00 CDL [employer] Morphine 2019- No 4 mg, Memoria 02-13 Route: l 16:41: IVP, ONCE, [place] 00 Dosing Weight 62.898, kg, Priority: STAT, Start date: 12/15/19 10:41:00 CDL [employer], Stop date: 12/15/19 10:41:00 CDL [employer] Ondansetron 2019-02 No 4 mg, Memor ia 02-13 Route: l 16:41: IVP, ONCE, Dosing Weight 62.898, kg, Priority: STAT, Start date: 12/15/19 10:41:00 CDL [employer], Stop date: 12/15/19 10:41:00 CDL [employer] Famotidine 2020-0 Yes 20 mg = 1 Me moria 20 MG Oral 3-24 tab, PO, l Tablet 12:45: BID, # 60 Lennox n [Pepcid] 00 tab, 0 Refill(s), Pharmacy: [facility] Famotidine 2020-0 Yes 20 mg = 1 Me moria 20 MG Oral 3-24 tab, PO, l Tablet 12:45: BID, # 60 Lennox n [Pepcid] 00 tab, 0 Refill(s), Pharmacy: [facility] Famotidine 2020-0 Yes 20 mg = 1 Me moria 20 MG Oral 3-24 tab, PO, l Tablet 12:45: BID, # 60 Lennox n [Pepcid] 00 tab, 0 Refill(s), Pharmacy: [facility] Famotidine 2020-0 Yes 20 mg = 1 Me moria 20 MG Oral 3-24 tab, PO, l Tablet 12:45: BID, # 60 Lennox n [Pepcid] 00 tab, 0 Refill(s), Pharmacy: [facility] metoprolol No Notes: Memor ia tartrate 3-23 (Same as: l 14:30: Lopressor) metoprolol No Notes: Memor ia tartrate 3-23 (Same as: l 14:30: Lopressor) metoprolol No Notes: Memor ia tartrate 3-23 (Same as: l 14:30: Lopressor) metoprolol No Notes: Memor ia tartrate 3-23 (Same as: l 14:30: Lopressor) Potassium No Notes: Memori a Chloride 3-22 (Same as: l 12:18: K-Dur 20) "Do Not Crush" Give with food and full glass of water For patients unable to swallow tablet, dissolve in one half glass of water. Allow about 2 minutes for the tablets to disintegra te. Stir before giving to prepare slurry and administer . Please exclude Patient s with feeding tube less than 14 [place] (Dobhoff, J-tube etc) and pediatric and patients. Potassium No Notes: Memori a Chloride 3-22 (Same as: l 12:18: K-Dur 20) "Do Not Crush" Give with food and full glass of water For patients unable to swallow tablet, dissolve in one half glass of water. Allow about 2 minutes for the tablets to disintegra te. Stir before giving to prepare slurry and administer . Please exclude Patient s with feeding tube less than 14 [place] (Dobhoff, J-tube etc) and pediatric and patients. Potassium No Notes: Memori a Chloride 3-22 (Same as: l 12:18: K-Dur 20) [place] 00 "Do Not Crush" Give with food and full glass of water For patients unable to swallow tablet, dissolve in one half glass of water. Allow about 2 minutes for the tablets to disintegra te. Stir before giving to prepare slurry and administer . Please exclude Patient s with feeding tube less than 14 [place] (Dobhoff, J-tube etc) and pediatric and patients. Potassium No Notes: Memori a Chloride 3-22 (Same as: l 12:18: K-Dur 20) [place] "Do Not Crush" Give with food and full glass of water For patients unable to swallow tablet, dissolve in one half glass of water. Allow about 2 minutes for the tablets to disintegra te. Stir before giving to prepare slurry and administer . Please exclude Patient s with feeding tube less than 14 [place] (Dobhoff, J-tube etc) and pediatric and patients. Hydralazine No Notes: Alem patt 3-21 (Same as: l 13:05: Apresoline Albert ) Push over 5 minutes Imodium A-D 2019- No Notes: Alem patt 3-21 (Same as: l 13:05: Imodium) [place] MAX adult dose is 8 caps/day Melatonin 3 No Notes: Alem patt MG Extended 3-21 (Same as: l Release 13:05: Melatonin) Herm rachid Tablet 00 Miralax No Notes: Memoria 3-21 Dissolve l 13:05: in 8 oz of [place] 00 water or juice. (Same as: Miralax) Tums No Notes: Memoria 3-21 (Same As: l 13:05: Tums) [place] 00 Calcium Carbonate 500 mg = 200 mg elemental calcium Dose = mg calcium carbonate ( mg elemental calcium) Zofran No Notes: Memoria 3-21 (Same as: l 13:05: Zofran) MEDICATION WASTE Product Size: 4 mg Product Wasted: ___ mg phenol No Notes: Memoria 3-21 WASTE: F/P l 13:05: - Black; E [place] - [employer] Bin Docusate No 100 mg, 1 Alem patt Sodium 100 3-21 cap, l MG Oral 13:05: Route: PO, Herm rachid Capsule 00 BID, [Colace] Dosing Weight 62.898, kg, PRN Constipati on, Start date: 04/27/19 8:05:00 CDT, Duration: 30 day, Stop date: 05/27/19 8:04:00 CDT Hydralazine No Notes: Alem patt 3-21 (Same as: l 13:05: Apresoline [place] ) Push over 5 minutes Imodium A-D 2019- No Notes: Alem patt 3-21 (Same as: l 13:05: Imodium) [place] 00 MAX adult dose is 8 caps/day Melatonin 3 No Notes: Alem patt MG Extended 3-21 (Same as: l Release 13:05: Melatonin) Herm rachid Tablet 00 Miralax No Notes: Memoria 3-21 Dissolve l 13:05: in 8 oz of Albert 00 water or juice. (Same as: Miralax) Tums No Notes: Memoria 3-21 (Same As: l 13:05: Tums) [place] 00 Calcium Carbonate 500 mg = 200 mg elemental calcium Dose = mg calcium carbonate ( mg elemental calcium) Zofran No Notes: Memoria 3-21 (Same as: l 13:05: Zofran) [place] MEDICATION WASTE Product Size: 4 mg Product Wasted: ___ mg phenol No Notes: Memoria 3-21 WASTE: F/P l 13:05: - Black; E [place] 00 - [employer] Bin Docusate No 100 mg, 1 Alem patt Sodium 100 3-21 cap, l MG Oral 13:05: Route: PO, Herm rachid Capsule 00 BID, [Colace] Dosing Weight 62.898, kg, PRN Constipati on, Start date: 04/27/19 8:05:00 CDT, Duration: 30 day, Stop date: 05/27/19 8:04:00 CDT Hydralazine No Notes: Alem patt 3-21 (Same as: l 13:05: Apresoline Albert 00 ) Push over 5 minutes Imodium A-D No Notes: Alem patt 3-21 (Same as: l 13:05: Imodium) [place] 00 MAX adult dose is 8 caps/day Melatonin 3 No Notes: Alem patt MG Extended 3-21 (Same as: l Release 13:05: Melatonin) Herm rachid Tablet 00 Miralax No Notes: Memoria 3-21 Dissolve l 13:05: in 8 oz of [place] 00 water or juice. (Same as: Miralax) Tums No Notes: Memoria 3-21 (Same As: l 13:05: Tums) [place] Calcium Carbonate 500 mg = 200 mg elemental calcium Dose = mg calcium carbonate ( mg elemental calcium) Zofran No Notes: Memoria 3-21 (Same as: l 13:05: Zofran) Albert 00 MEDICATION WASTE Product Size: 4 mg Product Wasted: ___ mg phenol No Notes: Memoria 3-21 WASTE: F/P l 13:05: - Black; E [place] - [employer] Trash Bin Docusate No 100 mg, 1 Alem patt Sodium 100 3-21 cap, l MG Oral 13:05: Route: PO, Herm rachid Capsule 00 BID, [Colace] Dosing Weight 62.898, kg, PRN Constipati on, Start date: 04/27/19 8:05:00 CDT, Duration: 30 day, Stop date: 05/27/19 8:04:00 CDT phenol No Notes: Memoria 3-21 WASTE: F/P l 13:05: - Black; E Albert - [employer] Trash Bin Docusate No 100 mg, 1 Alem patt Sodium 100 3-21 cap, l MG Oral 13:05: Route: PO, Herm rachid Capsule 00 BID, [Colace] Dosing Weight 62.898, kg, PRN Constipati on, Start date: 04/27/19 8:05:00 CDT, Duration: 30 day, Stop date: 05/27/19 8:04:00 CDT Hydralazine No Notes: Alem patt 3-21 (Same as: l 13:05: Apresoline ) Push over 5 minutes Imodium A-D No Notes: Alem patt 3-21 (Same as: l 13:05: Imodium) [place] MAX adult dose is 8 caps/day Melatonin 3 No Notes: Alem patt MG Extended 3-21 (Same as: l Release 13:05: Melatonin) Herm rachid Tablet 00 Miralax No Notes: Memoria 3-21 Dissolve l 13:05: in 8 oz of [place] water or juice. (Same as: Miralax) Tums 20200 No Notes: Memoria 3-21 (Same As: l 13:05: Tums) Calcium Carbonate 500 mg = 200 mg elemental calcium Dose = mg calcium carbonate ( mg elemental calcium) Zofran No Notes: Memoria 3-21 (Same as: l 13:05: Zofran) MEDICATION WASTE Product Size: 4 mg Product Wasted: ___ mg efavirenz 2020 No 1 tab, Memori a 600 MG / 04-26 Route: PO, l emtricitabi 02:00: Dosing Herm rachid ne 200 MG / 00 Weight Tenofovir 65.909, disoproxil kg, fumarate Bedtime, 300 MG Oral Start Tablet date: [Atripla] 04/26/19 21:00:00 CDT, Duration: 30 day, Stop date: 05/25/19 21:00:00 CDT Sustiva No Notes: Memoria 3-21 (Same as: l 02:00: Sustiva) Emtriva No Notes: Memoria 3-21 (Same As: l 02:00: Emtriva) Viread No Notes: Memoria 3-21 (Same As: l 02:00: Viread) efavirenz No 1 tab, Memori a 600 MG / 04-26 Route: PO, l emtricitabi 02:00: Dosing Herm rachid ne 200 MG / 00 Weight Tenofovir 65.909, disoproxil kg, fumarate Bedtime, 300 MG Oral Start Tablet date: [Atripla] 04/26/19 21:00:00 CDT, Duration: 30 day, Stop date: 05/25/19 21:00:00 CDT Sustiva 0 No Notes: Memoria 3-21 (Same as: l 02:00: Sustiva) Emtriva No Notes: Memoria 3-21 (Same As: l 02:00: Emtriva) Viread No Notes: Memoria 3-21 (Same As: l 02:00: Viread) efavirenz No 1 tab, Memori a 600 MG / 3-21 Route: PO, l emtricitabi 02:00: Dosing Herm rachid ne 200 MG / 00 Weight Tenofovir 65.909, disoproxil kg, fumarate Bedtime, 300 MG Oral Start Tablet date: [Atripla] 04/26/19 21:00:00 CDT, Duration: 30 day, Stop date: 05/25/19 21:00:00 CDT Sustiva No Notes: Memoria 3-21 (Same as: l 02:00: Sustiva) Emtriva No Notes: Memoria 3-21 (Same As: l 02:00: Emtriva) Viread No Notes: Memoria 3-21 (Same As: l 02:00: Viread) efavirenz No 1 tab, Memori a 600 MG / 3-21 Route: PO, l emtricitabi 02:00: Dosing Herm rachid ne 200 MG / 00 Weight Tenofovir 65.909, disoproxil kg, fumarate Bedtime, 300 MG Oral Start Tablet date: [Atripla] 04/26/19 21:00:00 CDT, Duration: 30 day, Stop date: 05/25/19 21:00:00 CDT Sustiva No Notes: Memoria 3-21 (Same as: l 02:00: Sustiva) Emtriva No Notes: Memoria 3-21 (Same As: l 02:00: Emtriva) Viread No Notes: Memoria 3-21 (Same As: l 02:00: Viread) Lactated No 1,000 mL, Alem patt Ringers IV 04-26 Rate: 125 l 1,000 mL 00:05: ml/hr, Infuse over: 8 hr, Route: IV, Dosing Weight 65.909 kg, Total Volume: 1,000, Start date: 04/26/19 19:05:00 CDT, Duration: 30 day, Stop date: 05/26/19 19:04:00 CDT, 1.81, m2, 0 Ondansetron No Notes: Alem patt 3-21 (Same as: l 00:05: Zofran) Albert 00 MEDICATION WASTE Product Size: 4 mg Product Wasted: ___ mg Acetaminoph 2019- No Notes: Do M emoria en -21 not exceed l 00:05: 4 gm/day. Albert 00 (Same as: Tylenol) Acetaminoph No Notes: Alem patt en 325 MG / -21 (Same as: l Hydrocodone 00:05: Augusta Adriana nn Bitartrate 00 325/5) Do 5 MG Oral not exceed Tablet 4gm/day of acetaminop hen. Morphine 0 No Notes: Memoria - (Same l 00:05: as:MORPhin [place] 00 e Sulfate) Docusate No Notes: Memoria Sodium 100 - (Same as: l MG Oral 00:05: Colace) Albert Capsule (Do Not Crush) Lactated No 1,000 mL, Alem patt Ringers IV 04-26 Rate: 125 l 1,000 mL 00:05: ml/hr, [place] Infuse over: 8 hr, Route: IV, Dosing Weight 65.909 kg, Total Volume: 1,000, Start date: 04/26/19 19:05:00 CDT, Duration: 30 day, Stop date: 05/26/19 19:04:00 CDT, 1.81, m2, 0 Ondansetron No Notes: Alem patt 3-21 (Same as: l 00:05: Zofran) Albert 00 MEDICATION WASTE Product Size: 4 mg Product Wasted: ___ mg Acetaminoph 2019-0 No Notes: Do M emoria en -21 not exceed l 00:05: 4 gm/day. [place] 00 (Same as: Tylenol) Acetaminoph No Notes: Alem patt en 325 MG / -21 (Same as: l Hydrocodone 00:05: [place] Adriana nn Bitartrate 00 325/5) Do 5 MG Oral not exceed Tablet 4gm/day of acetaminop hen. Morphine 2019-0 No Notes: Memoria 3-21 (Same l 00:05: as:MORPhin [place] 00 e Sulfate) Docusate No Notes: Memoria Sodium 100 3-21 (Same as: l MG Oral 00:05: Colace) [place] Capsule 00 (Do Not Crush) sennosides, No Notes: Alem patt MCFP 3-21 (Same as: l 00:05: Senokot) [place] 00 sennosides, No Notes: Alem patt MCFP 3-21 (Same as: l 00:05: Senokot) [place] Lactated No 1,000 mL, Alem patt Ringers IV - Rate: 125 l 1,000 mL 00:05: ml/hr, Albert 00 Infuse over: 8 hr, Route: IV, Dosing Weight 65.909 kg, Total Volume: 1,000, Start date: 04/26/19 19:05:00 CDT, Duration: 30 day, Stop date: 05/26/19 19:04:00 CDT, 1.81, m2, 0 Ondansetron No Notes: Alem patt 3-21 (Same as: l 00:05: Zofran) [place] MEDICATION WASTE Product Size: 4 mg Product Wasted: ___ mg Acetaminoph No Notes: Do M emoria en -21 not exceed l 00:05: 4 gm/day. [place] (Same as: Tylenol) Acetaminoph No Notes: Alem patt en 325 MG / -21 (Same as: l Hydrocodone 00:05: [place] Adriana nn Bitartrate 00 325/5) Do 5 MG Oral not exceed Tablet 4gm/day of acetaminop hen. Morphine No Notes: Memoria 3-21 (Same l 00:05: as:MORPhin Albert 00 e Sulfate) Docusate No Notes: Memoria Sodium 100 3-21 (Same as: l MG Oral 00:05: Colace) [place] Capsule 00 (Do Not Crush) sennosides, No Notes: Alem patt MCFP 3-21 (Same as: l 00:05: Senokot) [place] 00 Lactated No 1,000 mL, Alem patt Ringers IV - Rate: 125 l 1,000 mL 00:05: ml/hr, Albert Infuse over: 8 hr, Route: IV, Dosing Weight 65.909 kg, Total Volume: 1,000, Start date: 04/26/19 19:05:00 CDT, Duration: 30 day, Stop date: 05/26/19 19:04:00 CDT, 1.81, m2, 0 Ondansetron 2019-0 No Notes: Alem patt 3-21 (Same as: l 00:05: Zofran) Albert 00 MEDICATION WASTE Product Size: 4 mg Product Wasted: ___ mg Acetaminoph No Notes: Do M emoria en 3-21 not exceed l 00:05: 4 gm/day. [place] (Same as: Tylenol) Acetaminoph 0 No Notes: Alem patt en 325 MG / 3-21 (Same as: l Hydrocodone 00:05: [place] Adriana nn Bitartrate 00 325/5) Do 5 MG Oral not exceed Tablet 4gm/day of acetaminop hen. Morphine 0 No Notes: Memoria 3-21 (Same l 00:05: as:MORPhin [place] 00 e Sulfate) Docusate 2019-0 No Notes: Memoria Sodium 100 3-21 (Same as: l MG Oral 00:05: Colace) Albert Capsule 00 (Do Not Crush) sennosides, 0 No Notes: Alem patt MCFP 3-21 (Same as: l 00:05: Senokot) Albert 00 normal 0 No 1,000 mL, Memori a saline 0.9% 3-20 Rate: 150 l IV 1,000 mL 23:20: ml/hr, Herm rachid Infuse over: 6.7 hr, Route: IV, Dosing Weight 65.909 kg, Total Volume: 1,000, Priority: STAT, Start date: 04/26/19 18:20:00 CDT, Duration: 1 doses or times, Stop date: 04/27/19 1:01:00 CDT, 1.81, m2, 0 normal 20200 No 1,000 mL, Memori a saline 0.9% 3-20 Rate: 150 l IV 1,000 mL 23:20: ml/hr, Herm rachid Infuse over: 6.7 hr, Route: IV, Dosing Weight 65.909 kg, Total Volume: 1,000, Priority: STAT, Start date: 04/26/19 18:20:00 CDT, Duration: 1 doses or times, Stop date: 04/27/19 1:01:00 CDT, 1.81, m2, 0 normal 2020-0 No 1,000 mL, Memori a saline 0.9% 3-20 Rate: 150 l IV 1,000 mL 23:20: ml/hr, Herm Infuse over: 6.7 hr, Route: IV, Dosing Weight 65.909 kg, Total Volume: 1,000, Priority: STAT, Start date: 04/26/19 18:20:00 CDT, Duration: 1 doses or times, Stop date: 04/27/19 1:01:00 CDT, 1.81, m2, 0 normal 2020-0 No 1,000 mL, Memori a saline 0.9% 3-20 Rate: 150 l IV 1,000 mL 23:20: ml/hr, Herm Infuse over: 6.7 hr, Route: IV, Dosing Weight 65.909 kg, Total Volume: 1,000, Priority: STAT, Start date: 04/26/19 18:20:00 CDT, Duration: 1 doses or times, Stop date: 04/27/19 1:01:00 CDT, 1.81, m2, 0 Ketorolac 2020-0 No 4 days Memor ia 3-20 l 20:55: MEDICATION [place] 00 WASTE Product Size: 30 mg Product Wasted: ___ mg Ketorolac 2020-0 No 4 days Memor ia 3-20 l 20:55: MEDICATION [place] WASTE Product Size: 30 mg Product Wasted: ___ mg Ketorolac 2020-0 No 4 days Memor ia 3-20 l 20:55: MEDICATION [place] 00 WASTE Product Size: 30 mg Product Wasted: ___ mg Ketorolac 2020-0 No 4 days Memor ia 3-20 l 20:55: MEDICATION [place] 00 WASTE Product Size: 30 mg Product Wasted: ___ mg Sodium 2020-0 No 1,000 mL, Memori a Chloride 3-20 1000 l 0.9% 20:54: ml/hr, Albert (Bolus) IV 00 Infuse Over: 1 hr, Route: IV, 1,000, Drug form: INJ, ONCE, Priority: STAT, Dosing Weight 65.909 kg, Start date: 04/26/19 15:54:00 CDT, Stop date: 04/26/19 15:54:00 CDT, 0 Ondansetron 2020-0 No Notes: Alem patt 3-20 (Same as: l 20:54: Zofran) [place] 00 MEDICATION WASTE Product Size: 4 mg Product Wasted: ___ mg Sodium 2020-0 No 1,000 mL, Memori a Chloride 3-20 1000 l 0.9% 20:54: ml/hr, [place] (Bolus) IV 00 Infuse Over: 1 hr, Route: IV, 1,000, Drug form: INJ, ONCE, Priority: STAT, Dosing Weight 65.909 kg, Start date: 04/26/19 15:54:00 CDT, Stop date: 04/26/19 15:54:00 CDT, 0 Ondansetron 2020-0 No Notes: Alem patt 3-20 (Same as: l 20:54: Zofran) [place] 00 MEDICATION WASTE Product Size: 4 mg Product Wasted: ___ mg Sodium 2020-0 No 1,000 mL, Memori a Chloride 3-20 1000 l 0.9% 20:54: ml/hr, [place] (Bolus) IV 00 Infuse Over: 1 hr, Route: IV, 1,000, Drug form: INJ, ONCE, Priority: STAT, Dosing Weight 65.909 kg, Start date: 04/26/19 15:54:00 CDT, Stop date: 04/26/19 15:54:00 CDT, 0 Ondansetron 2020-0 No Notes: Alem patt 3-20 (Same as: l 20:54: Zofran) [place] 00 MEDICATION WASTE Product Size: 4 mg Product Wasted: ___ mg Sodium 2020-0 No 1,000 mL, Memori a Chloride 3-20 1000 l 0.9% 20:54: ml/hr, [place] (Bolus) IV 00 Infuse Over: 1 hr, Route: IV, 1,000, Drug form: INJ, ONCE, Priority: STAT, Dosing Weight 65.909 kg, Start date: 04/26/19 15:54:00 CDT, Stop date: 04/26/19 15:54:00 CDT, 0 Ondansetron No Notes: Alem patt 3-20 (Same as: l 20:54: Zofran) [place] 00 MEDICATION WASTE Product Size: 4 mg Product Wasted: ___ mg Vital Signs Vital Name Observation Time Observation Value Comments Source Diastolic blood 2022-05-27 03:22:00 80 mm[Hg] [facility] pressure [facility] Heart rate 2022-05-27 03:22:00 61 /min [facility] MD [facility] Body temperature 2022-05-27 03:22:00 36.67 Nakia [facility] Respiratory rate 2022-05-27 03:22:00 18 /min [facility] Oxygen saturation in 2022-05-27 03:22:00 98 /min [facility] Arterial blood by [place] MD Lexi orellana Pulse oximetry [facility] Systolic blood 2022-05-27 03:22:00 119 mm[Hg] Univer [facility] pressure [facility] Body weight 2022-05-26 23:01:00 65.1 kg [facility] MD [facility] Temperature Oral (F) 2020-10-31 17:00:00 98.5 F [facility] Heart Rate 2020-10-31 17:00:00 [facility] Respitory Rate 2020-10-31 17:00:00 [facility] Systolic (mm Hg) 2020-10-31 17:00:00 [facility] Diastolic (mm Hg) 2020-10-31 17:00:00 [facility] Temperature Oral (F) 2020-10-31 13:00:00 98.6 F [facility] Heart Rate 2020-10-31 13:00:00 [facility] Respitory Rate 2020-10-31 13:00:00 [facility] Systolic (mm Hg) 2020-10-31 13:00:00 [facility] Diastolic (mm Hg) 2020-10-31 13:00:00 [facility] Temperature Oral (F) 2020-10-31 09:00:00 98.6 F [facility] Heart Rate 2020-10-31 09:00:00 [facility] Respitory Rate 2020-10-31 09:00:00 [facility] Systolic (mm Hg) 2020-10-31 09:00:00 [facility] Diastolic (mm Hg) 2020-10-31 09:00:00 [facility] Height 2020-10-31 01:05:00 177.8 cm [facility] Weight 2020-10-31 01:05:00 [facility] BMI Calculated 2020-10-31 01:05:00 [facility] Temperature Oral (F) 2020-06-08 22:50:00 98.7 F [facility] Heart Rate 2020-06-08 22:50:00 [facility] Respitory Rate 2020-06-08 22:50:00 [facility] Systolic (mm Hg) 2020-06-08 22:50:00 [facility] Diastolic (mm Hg) 2020-06-08 22:50:00 [facility] Height 2020-06-08 16:17:00 177.8 cm [facility] BMI Calculated 2020-06-08 16:17:00 [facility] Weight 2020-06-08 16:17:00 [facility] Systolic (mm Hg) 2020-06-08 16:17:00 [facility] Diastolic (mm Hg) 2020-06-08 16:17:00 [facility] Heart Rate 2020-06-08 16:17:00 [facility] Respitory Rate 2020-06-08 16:17:00 [facility] Temperature Oral (F) 2020-06-08 16:17:00 97.6 F [facility] Systolic (mm Hg) 2019-12-17 22:49:00 [facility] Diastolic (mm Hg) 2019-12-17 22:49:00 [facility] Respitory Rate 2019-12-17 19:45:00 [facility] Systolic (mm Hg) 2019-12-17 19:45:00 [facility] Diastolic (mm Hg) 2019-12-17 19:45:00 [facility] Respitory Rate 2019-12-17 19:30:00 [facility] Systolic (mm Hg) 2019-12-17 19:30:00 [facility] Diastolic (mm Hg) 2019-12-17 19:30:00 [facility] Respitory Rate 2019-12-17 19:15:00 [facility] Heart Rate 2019-12-17 16:34:00 [facility] Temperature Oral (F) 2019-12-17 14:30:00 98.4 F [facility] Heart Rate 2019-12-17 14:30:00 [facility] Temperature Oral (F) 2019-12-17 10:06:00 98 F [facility] Heart Rate 2019-12-17 10:06:00 [facility] Temperature Oral (F) 2019-12-17 06:14:00 98.5 F [facility] Height 2019-12-16 01:05:00 177.8 cm [facility] Weight 2019-12-16 01:05:00 [facility] BMI Calculated 2019-12-16 01:05:00 [facility] Height 2019-12-15 16:38:00 177.8 cm [facility] BMI Calculated 2019-12-15 16:38:00 [facility] Weight 2019-12-15 16:38:00 [facility] Temperature Oral (F) 2019-04-30 12:49:00 97.7 F [facility] Heart Rate 2019-04-30 12:49:00 [facility] Respitory Rate 2019-04-30 12:49:00 [facility] Systolic (mm Hg) 2019-04-30 12:49:00 [facility] Diastolic (mm Hg) 2019-04-30 12:49:00 [facility] Temperature Oral (F) 2019-04-30 08:34:00 98.1 F [facility] Heart Rate 2019-04-30 08:34:00 [facility] Respitory Rate 2019-04-30 08:34:00 [facility] Systolic (mm Hg) 2019-04-30 08:34:00 [facility] Diastolic (mm Hg) 2019-04-30 08:34:00 [facility] Temperature Oral (F) 2019-04-30 05:13:00 98.7 F [facility] Heart Rate 2019-04-30 05:13:00 [facility] Respitory Rate 2019-04-30 05:13:00 [facility] Systolic (mm Hg) 2019-04-30 05:13:00 [facility] Diastolic (mm Hg) 2019-04-30 05:13:00 [facility] Height 2019-04-27 01:30:00 177.8 cm [facility] Weight 2019-04-27 01:30:00 [facility] BMI Calculated 2019-04-27 01:30:00 [facility] Height 2019-04-26 19:35:00 177.8 cm [facility] BMI Calculated 2019-04-26 19:35:00 [facility] Weight 2019-04-26 19:35:00 [facility] Procedures Procedure Date / Time Performing Clinician Source Performed CT HEAD WO CONTRAST 2022-05-27 00:57:00 Maria Fernanda Lyons [facility] COMPLETE BLOOD COUNT W/ 2022-05-27 00:06:00 Maria Fernanda Lyons [facility] DIFFERENTIAL [facility] COMPREHENSIVE METABOLIC 2022-05-27 00:06:00 [facility]EL [facility] MAGNESIUM LEVEL 2022-05-27 00:06:00 Maria Fernanda Lyons [facility] PHOSPHORUS LEVEL 2022-05-27 00:06:00 Maria Fernanda Lyons [facility] Results CBC 2022-05-27 00:06:00 Maria Fernanda Lyons [facility] MANUAL DIFFERENTIAL 2022-05-27 00:06:00 Maria Fernanda Lyons [facility] GLUCOSE LEVEL 2022-05-27 00:06:00 Maria Fernanda Lyons [facility] BLOOD UREA NITROGEN 2022-05-27 00:06:00 Maria Fernanda Lyons [facility] ELECTROLYTE PANEL 2022-05-27 00:06:00 Serena, [facility] CREATININE 2022-05-27 00:06:00 Maria Fernanda Lyons [facility] .GLOMERULAR FILTRATION 2022-05-27 00:06:00 Maria Fernanda Lyons [facility] CALCIUM LEVEL TOTAL 2022-05-27 00:06:00 Maria Fernanda Lyons [facility] ALBUMIN LEVEL 2022-05-27 00:06:00 Maria Fernanda Lyons [facility] ALKALINE PHOSPHATASE 2022-05-27 00:06:00 Maria Fernanda Lyons [facility] ALANINE AMINOTRANSFERASE 2022-05-27 00:06:00 Maria Fernanda Lyons [facility] ASPARTATE AMINOTRANSFERASE 2022-05-27 00:06:00 Maria Fernanda Lyons [facility] TOTAL PROTEIN 2022-05-27 00:06:00 Maria Fernanda Lyons [facility] FRACTIONATED BILIRUBIN 2022-05-27 00:06:00 Maria Fernanda Lyons [facility] POC GLUCOSE SCREEN 2022-05-26 23:07:00 Ying Underwood [facility] Encounters Start End Encounter Admission Attending Care Care Encounter Source Date/Time Date/Time Type Type Clinicians Facility Department ID 2022-03-16 Outpatient MERRITT, CLAUDIA JONESORESTESNancy SOFIA [address] [facility] 16:34:01 [id number] 2022-03-08 Outpatient MERRITT, CLAUDIA JONESYESSICA [address] [facility] 13:34:00 0131 [facility] 2022-02-24 Outpatient MERRITT, CLAUDIA JONESORESTESNancy [address] [facility] 07:43:00 0119 [facility] 2021-09-28 Outpatient MERRITT, CLAUDIA JONESORESTESNancy JONESYESSICA [address] [facility] 17:35:00 0823 [facility] 2021-09-24 Outpatient MERRITT, CLAUDIA JONESORESTESNancy JONESYESSICA [id number] St[facility] 19:58:00 0819 [facility] 2021-06-04 Outpatient MERRITT, CLAUDIA BLACK 2021 St[facility] 09:09:02 0429 [facility] 2021-03-03 Outpatient MERRITT, CLAUDIA BLACK 2020 St[facility] 14:08:45 1104 [facility] 2021-03-03 Outpatient MERRITT, CLAUDIA BLACK [address] [facility] 13:51:12 0920 [facility] 2021-03-03 Outpatient MERRITT, CLAUDIA BLACK [address] [facility] 13:03:23 0514 [facility] 2021-03-03 Outpatient MERRITT, CLAUDIA BLACK [address] St[address] 12:46:21 0331 [facility] 2022-05-26 2022-05-26 Emergency UR [facility] Emergency [id number] 18:48:00 22:25:00 [facility] 2022-05-26 2022-05-26 Emergency Ying Underwood [id number] [facility] 18:48:00 22:25:00 A [id number] ity of 3.412.2.7 [place] .3.888155 MD [place]8 [facility] 2022-05-26 2022-05-26 Travel 1.2.840.1 [id number] Univers 00:00:00 00:00:00 31953.1.1 350.1.13.41 ity of 3.412.2.[place] 084.8 .8 [facility] 2022-02-17 2022-02-18 Inpatient EM German, HCAPM MEDI.01 [id number] [facility] 18:37:00 14:53:00 Oladipo 81 [facility] 2022-02-18 2022-02-18 Outpatient German, HCACL LABO [id number] [facility] 06:12:00 06:12:00 Oladipo 91 [facility] 2021-08-19 2021-08-19 Emergency EM Costa, HCAPM ANASTASIA [id number] [facility] 05:51:00 06:15:00 Boy 40 [facility] 2021-08-19 2021-08-19 Emergency EM Igor, HCAPM HCAPM [id number] [facility] 05:51:00 06:15:00 Boy [id number] [facility] 2021-07-22 2021-07-24 Inpatient EM Aurelio, HCAPM MEDI.01 [id number] [facility] 01:06:00 14:10:00 Matthew [id number] [facility] 2021-07-22 2021-07-22 Outpatient Aurelio HCACL LABO [id number] [facility] 06:51:00 06:51:00 Matthew 49 [facility] 2020-10-30 2020-10-[address] [facility] [id number] [facility] 15:57:00 21:01:00 tien Price 03 [facility] 2020-10-30 2020-10-[address] [facility] [id number] [facility] 15:57:00 21:01:00 tien Blake [facility] 2020-10-30 2020-10-31 Inpatient E [facility] [id number] [facility] 13:24:00 16:01:00 PREETI 2020-10-30 2020-10-31 Outpatient Margaret [facility] [id number] 10:57:00 16:01:00 Preeti Liu 03 2020-08-18 2020-08-19 Inpatient LECHUGA [facility] [id number] [place] 10:04:46 12:24:[address] [facility] 2020-07-10 2020-07-13 Inpatient EM German, HCAPM MAS [id number] [facility] 16:56:00 12:08:00 Oladipo 54 [facility] 2020-07-10 2020-07-10 Outpatient German, HCACL LABO [id number] [facility] 23:40:00 23:40:00 Oladipo 18 [facility] 2020-06-08 2020-06-[address] [facility] [id number] Mem[facility] 16:12:51 22:50:00 r Albert 02 l [facility] 2020-06-08 2020-06-08 Emergency nullFlavo [facility] [id number] [facility] 16:12:51 22:50:00 r Albert 02 l [facility] 2020-06-08 2020-06-08 Out[address] Juárez [id number] 11:12:51 17:50:00 K 02 2020-06-08 2020-06-08 Emergency E JUÁREZELIZABETH [facility]NW [facility]NW 7502 [facility] 11:12:00 17:50:00 2019-12-15 2019-12-17 Inpatient nullFlavo [facility] [id number] [facility] 16:36:09 23:51:00 r [facility] 01 [facility] 2019-12-15 2019-12-17 Inpatient nullFlavo [facility] [id number] [facility] 16:36:09 23:51:00 r [facility] 01 [facility] 2019-12-16 2019-12-17 Inpatient E GARRY, MHSE MED [id number] 15:40:00 17:51:00 [facility] 2019-12-15 2019-12-17 Outpatient Garry, MHSE MHSE [id number] 10:36:09 17:51:00 [place] [id number] 2019-12-15 2019-12-17 Outpatient Garry, MHSE MHSE [id number] 10:36:09 17:51:00 [facility] 2019-12-17 2019-12-17 Outpatient MHIE MHIE [id number] [facility] 07:00:00 07:00:00 00 kailee [facility] 2019-12-17 2019-12-17 Outpatient MHIE MHIE [id number] [facility] 07:00:00 07:00:00 00 kailee Price 2019-09-22 2019-09-28 Inpatient HCAPM ANASTASIA [id number] [facility] 18:30:00 03:31:[address] [place] [address] 2019-09-22 2019-09-22 Outpatient RODOLFO Carey LABO [id number] [facility] 23:43:00 23:43:[address] 2019-06-17 2019-06-21 Inpatient EM RAJAN CareyPM MEDI.01 [id number] [facility] 16:14:00 20:41:23 [facility] 21 [facility] 2019-06-16 2019-06-16 Outpatient RODOLFO Carey OUTD [id number] [facility] 23:59:00 23:59:00 [facility] 42 [facility] 2019-04-26 2019-04-30 Inpatient nullFlavo [facility] [id number] [facility] 19:11:58 15:19:00 r [facility] 00 [facility] 2019-04-26 2019-04-[address] [facility] [id number] [facility] 19:11:58 15:19:00 [facility] 00 [facility] 2019-04-26 2019-04-30 Outpatient AMANDA Cuenca MHSE [id number] 14:11:58 10:19:00 Sali 00 [place] 2019-02-19 2019-02-23 Inpatient EM RAJAN TannerPM MEDI.01 [id number] [facility] 17:39:00 22:55:54 Roselia 88 [facility] 2019-02-18 2019-02-18 Outpatient RODOLFO Tanner OUTD [id number] [facility] 18:53:00 18:53:00 Roselia 99 [facility] 2018-07-17 2018-07-17 Outpatient [facility] [id number] [place] [address] 00:00:00 00:00:00 Health 2018-07-07 2018-07-07 Emergency [facility] [id number] [place] 19:58:23 19:58:23 Health 2018-07-07 2018-07-07 Emergency [facility] [id number] [place] 19:05:16 19:05:16 Health 2018-07-07 2018-07-07 Emergency [facility] [id number] [place] 18:50:44 18:50:44 Health Results Test Description Test Time Test Comments Results Result Comments Source Fractionated Bilirubin 2022-05-27 00:42:52 Test Item Value Reference Range Interpretation Comme nts Bili Total (test code = 0.6 mg/dL <=1.2 Indo cyanine Green (ICG) may cause 1975-2) falsely elevate d bilirubin results. Total and direc t bilirubin must not be measured fro m samples containing indocyanine gre en. False elevation of total biliru bin can be seen in patients with I gG concentrations above 28 g/L. Bili Direct (test code = 0.2 mg/dL <=0.3 Ind ocyanine Green (ICG) may cause 1967-08) falsely elevate d bilirubin results. Total and direc t bilirubin must not be measured fro m samples containing indocyanine gre en. Bili Indirect (test code = 0.4 mg/dL 0.0-0.9 1970-02) [facility] 2022-05-27 00:42:50 Test Item Value Reference Range Interpretation Comments eGFR (test code = 113 See_Comment The eGFRcr [place] 06[address]-3) the 2020 CKD-EP I creatinine equation using creatinine, patient's age, and sex for adults 18 years of age and older. Other fa ctors, especially musc le mass, may affect accuracy and need to be considered.A ccording to the Kidney Dise ase: Improving Global Outcomes (KDIGO) CKD Work Group 2012 Clinical Practice Guidel ine, chronic kidney disease (CKD) is defined as the abnormalities of kidney struc ture or function, prese nt for more than 3 months, with implications fo r health. CKD should be class ified by cause, GFR diego gory, and albuminuria cat egory. KDIGO guidelines prov alvino the following GFR c ategoriesStage Description GFR mL/min/1.73 m2G1* Normal or high >= 90G2* Mildly decrease d 60-89G3a Mildly to moder ately decreased 45-59 G3b Moderately to severely dec reased 30-44G4 Severely decrea sed 15-29G5 Kidney failure <15*In the absence of evid ence of kidney damage, neither G1 nor G2 fulfill criteri a for CKD. [Automated mess age] The system which ge nerated this result transmit tae reference range: >=60 mL/ min/1.73 sq. m. The referenc e range was not used to int erpret this result as ludmila l/abnormal. [facility]osph[facility] [id number] 00:42:49 Test Item Value Reference Range Interpretation Comments Phosphorus (test code = 2777-1) 4.4 mg/dL 2.5-4.5 [facility]Total [id number] 00:42:48 Test Item Value Reference Range Interpretation Comments Total Protein (test code = 2885-2) 8.7 g/dL 6.4-8.3 H Lab Interpretation (test code = Abnormal 57146-0) [facility] [id number] 00:42:47 Test Item Value Reference Range Interpretation Comments Calcium Lvl (test code = 76661-1) 9.4 mg/dL 8.4-10.2 [facility]Magnesium [id number] 00:42:46 Test Item Value Reference Range Interpretation Comments Magnesium (test code = 08242-5) 2.0 mg/dL 1.6-2.6 [facility]ervilleAlbumin [id number] 00:42:45 Test Item Value Reference Range Interpretation Comments Albumin Lvl (test code 4.4 See_Comment [Aut omated message] The = 2441-7) system which ge nerated this result tra nsmitted reference range : 3.5 - 5.2 gm/dL. The refe rence range was not used to interpret this result as normal/abnormal . [facility]ervilleAlkaline [id number] 00:42:44 Test Item Value Reference Range Interpretation Comments Alk Phos (test code = 6768-6) 80 U/L 40-129 [facility]Aspartate Aminotransferase 2022-05-27 00:42:43 Test Item Value Reference Range Interpretation Comments AST (test code = 1920-8) 27 U/L <=40 [facility]ervilleALT2023-04-21 00:42:42 Test Item Value Reference Range Interpretation Comments ALT (test code = 1742-6) 13 U/L <=41 [facility]ervilleElectrolyte [id number] 00:42:41 Test Item Value Reference Range Interpretation Comments Sodium Lvl (test code = 141 See_Comment [Au tomated message] The 7161-2) system which ge nerated this result tra nsmitted reference range : 136 - 145 mEq/L. The reference range was not u sed to interpret this result as normal/abnormal . Potassium Lvl (test 4.0 See_Comment [Automa tae message] The code = 2823-3) system which generated this result tra nsmitted reference range : 3.5 - 5.1 mEq/L. The reference range was not u sed to interpret this result as normal/abnormal . Chloride (test code = 103 See_Comment [Auto mated message] The ) system which [employer] nerated this result tra nsmitted reference range : 98 - 107 mEq/L. The refe rence range was not u sed to interpret this result as normal/abnormal . CO2 (test code = 25 See_Comment [Automated message] The 2027-10) system which ge nerated this result tra nsmitted reference range : 22 - 29 mEq/L. The refe rence range was not u sed to interpret this result as normal/abnormal . Anion Gap (test code = 13 See_Comment [Aut omated message] The ) system which ge nerated this result tra nsmitted reference range : 4 - 14 mEq/L. The refe rence range was not u sed to interpret this result as normal/abnormal . [facility].Serum [id number] 00:42:40 Test Item Value Reference Range Interpretation Comments Creatinine (test code = 2160-0) 0.88 mg/dL 0.67-1.17 [facility]Glucose [id number] 00:42:39 Test Item Value Reference Range Interpretation Comments Glucose Level (test code 102 mg/dL 70-99 H Eff ective 09/02/15, = 2345-7) the glucose reference inter vals have been updat ed based on [place] an Diabetes Associ ation guidelines (Standards of Medical Care in Diabetes 2016. Diabetes Care 2 016; 39: S13-S22).Fa sting blood glucose:Normal: 70-99 mg/dLImpa ired fasting glucose (increased risk for diabetes or pre-diabetes): 100-125 mg/dLDiabetes mellitus: >/=12 6 mg/dL Random bl ood glucose:Normal: 70-199 mg/dLNot e: Random glucose >100 mg/dL is associ ated with increased risk for diabetes Lab Interpretation (test Abnormal code = 98254-6) [facility]ervilleBUN2023-04-21 00:42:38 Test Item Value Reference Range Interpretation Comments BUN (test code = 3094-0) 12 mg/dL 6-23 [facility]ugervilleDifferential2023-04-21 00:14:54 Test Item Value Reference Range Interpretation Comments Neutrophil % (test code = 30.4 % 42.0-66.0 L 770-8) Lymphocyte % (test code = 59.0 % 24.0-44.0 H 736-9) Monocyte % (test code = 7.9 % 2.0-7.0 H 5905-5) Eosinophil % (test code = 1.6 % 1.0-4.0 713-8) Basophil % (test code = 0.8 % 0.0-1.0 706-2) IGRE % (test code = 0.3 % 0.0-0.4 IGRE % c ount 09984-4) includes Metamyelocytes, Myelocytes, and Promyelocytes. Neutrophil Abs (test code 1.15 K/uL 1.70-7.30 L = 751-8) Lymphocyte Abs (test code 2.23 K/uL 1.00-4.80 = 731-0) Monocyte Abs (test code = 0.30 K/uL 0.08-0.70 742-7) Eosinophil Abs (test code 0.06 K/uL 0.04-0.40 = 711-2) Basophil Abs (test code = 0.03 K/uL 0.00-0.10 704-7) IG Abs (test code = 0.01 K/uL 0.00-0.04 62491-9) Lab Interpretation (test Abnormal code = 84556-3) [facility].[id number] 00:14:43 Test Item Value Reference Range Interpretation Comments WBC (test code = 3.8 K/uL 4.0-11.0 L 6690-2) RBC (test code = 789-8) 4.75 See_Comment [Au tomated message] The system [employer] generated this result transmitted ref erence range: 4.50 - 6 .00 M/uL. The refer ence range was not u sed to interpret this result as normal/abnor mal. Hgb (test code = 718-7) 14.3 See_Comment [Au tomated message] The system [employer] generated this result transmitted ref erence range: 14.0 - 1 8.0 gm/dL. The refe rence range was not u sed to interpret this result as normal/abnor mal. Hct (test code = 38.3 % 40.0-54.0 L 4544-3) MCV (test code = 787-2) 81 fL 82-98 L MCH (test code = 785-6) 30.1 pg 27.0-31.0 MCHC (test code = 37.3 See_Comment H [Automate d message] 786-4) The system [employer] generated this result transmitted ref erence range: 31.0 - 3 6.0 gm/dL. The refe rence range was not u sed to interpret this result as normal/abnor mal. RDW-SD (test code = 42.4 fL 35.1-46.3 12917-6) RDW-CV (test code = 14.3 % 12.0-15.5 788-0) Platelet count (test 181 K/uL 140-440 code = 777-3) MPV (test code = 10.8 fL 4.0-10.4 H 74396-2) INRBC (test code = 0.0 % <=0.0 The INRBC (instrument 96105-1) NRBC) value ref lects the enumeration of nucleated red b lood cells contained in a 200uL sampleof whole blood analyzed by the instrument. Thi s value maydiffer from the NRBC value repo rted in a manual differential,wh ich is based on a 100 cell differential. Lab Interpretation Abnormal (test code = 05302-4) [facility] Glucose [id number] 23:09:17 Test Item Value Reference Interpretation Comments Range POC Glucose (test 107 mg/dL 70-99 H Capillary blood code = 5651) samples, e.g. obtained by fingerstick, ma y have inaccurate resu lts in patients with decreased perip heral blood flow. All POC Glucose screen test results, includ ing critical values , must be interpreted and evaluated in th e context of the patients clinical findi ngs. It is recommend ed to confirm any questionable te st results by core lab methodology. Me thod description: Al l results are duong sured using Electrochemistr y test methodology. Th e glucose in the sample mixes with the reagents on the test strip. The reac tion produces an marco ctric current. The am ount of current prod uced is proportional to the glucose concentration i n the blood. PO Sample Type (test Capillary code = 9554) Performing Lab (test [facility] [place] code = 55607) [facility], [address] [facility], [place] [address]; Coding Technician: Dorita Villalobos MD; Waived Point of Care Testing - Zohra christina MD Lab Interpretation Abnormal (test code = 04557-1) [facility] CenterCD4 HELPER T-CELL [id number] 16:09:00 Test Item Value Reference Range Interpretation Comments NEUTROPHIL % (test 0.0 % Not Estab. code = NT%) NEUTROPHIL # (test 0.0 x10E3/uL 0.0-0.1 Performed At: HD code = NT#) [facility] [id number] Ray Dugan MD [phone] WBC (test code = 7.2 x10E3/uL 3.4-10.8 WBCLC) RBC (test code = 4.24 x10E6/uL 4.14-5.80 RBCLC) HGB (test code = 13.0 g/dL 13.0-17.7 HGBLC) HCT (test code = 38.5 % 37.5-51.0 HCTLC) MCV (test code = 91 fL 79-97 MCVLC) MCH (test code = 30.7 pg 26.6-33.0 MCHLC) MCHC (test code = 33.8 g/dL 31.5-35.7 MCHCLC) RDW (test code = 14.1 % 11.6-15.4 RDWLC) PLT (test code = 221 x10E3/uL 150-450 PLTLC) NEUT % (test code = 70 % Not Estab. NT%LC) LYMPH % (test code = 18 % Not Estab. LY%LC) MONO % (test code = 9 % Not Estab. MO%LC) EOS % (test code = 3 % Not Estab. EO%LC) BASO % (test code = 0 % Not Estab. BA%LC) NEUT # (test code = 5.0 x10E3/uL 1.4-7.0 NT#LC) LYMPH # (test code = 1.3 x10E3/uL 0.7-3.1 LY#LC) MONO # (test code = 0.7 x10E3/uL 0.1-0.9 MO#LC) EOS # (test code = 0.2 x10E3/uL 0.0-0.4 EO#LC) BASO # (test code = 0.0 x10E3/uL 0.0-0.2 BA#LC) PERCENT CD4 HELPER 33.1 % 30.8-58.5 CELLS (test code = CD4P) ABSOLUTE CD4+ CELLS 430 /uL 359-1519 (test code = CD4A) GLUCOSE BEDSIDE [id number] 11:59:00 Test Item Value Reference Range Interpretation Comments GLUCOSE BEDSIDE TESTING (test code = 90 mg/dL 70-110 N GLUBED) UA RFLX MICR CULT IF [id number] 08:41:00 Test Item Value Reference Range Interpretation Comments UA COLOR (test code = YELLOW discript YEL/STRAW COLU) UA APPEARANCE (test code CLEAR discript CLEAR = APPU) UA GLUCOSE DIPSTICK (test NEGATIVE mg/dL NEG code = DGLUU) UA BILIRUBIN DIPSTICK 1+ mg/dL NEG A (test code = BILU) UA KETONE DIPSTICK (test 2+ mg/dL NEG A code = KETU) UA SPECIFIC GRAVITY (test 1.025 SG 1.005-1.030 code = SGU) UA BLOOD DIPSTICK (test NEGATIVE mg/DL NEG code = WILFRED) UA PH DIPSTICK (test code 5.5 pH UNITS 5.0-7.0 = LIMA) UA PROTEIN DIPSTICK (test TRACE mg/dL NEG A code = PROU) UA UROBILINIOGEN DIPSTICK 0.2 mg/dL <2.0 (test code = URO) UA NITRITE DIPSTICK (test NEGATIVE SCREEN NEG code = JF) UA LEUKOCYTE ESTERASE NEGATIVE Leuk/mcL NEGATIVE DIPSTICK (test code = LEUU) UA CULTURE NEEDED? (test NO, WBC<10 Criteria Culture CHK code = UACULT) Indication for culture: RiskForSepsis-no oth srcGLUCOSE BEDSIDE TESTING 2022-02-18 08:41:00 Test Item Value Reference Range Interpretation Comments GLUCOSE BEDSIDE TESTING (test code = 81 mg/dL 70-110 N GLUBED) GLYCOSYLATED HEMOGLOBIN [id number] 04:36:00 Test Item Value Reference Range Interpretation Comments GLYCOSYLATED HEMOGLOBIN (HA1C) 5.2 % A1C 0.0-5.7 N (test code = GLYHGB) ESTIMATED AVERAGE GLUCOSE (test 103 MG/DLest code = EAG) COMPREHENSIVE METABOLIC [id number] 04:28:00 Test Item Value Reference Range Interpretation Comments SODIUM (test code 141 mmol/L 134-147 N = NA) POTASSIUM (test 4.1 mmol/L 3.4-5.0 N code = K) CHLORIDE (test 104 mmol/L 100-108 N code = CL) CARBON DIOXIDE 25 mmol/L 21-32 N (test code = CO2) ANION GAP (test 12.0 GAP calc 4.0-15.0 code = GAP) GLUCOSE (test code 97 MG/DL 70-110 N = GLU) BLOOD UREA 15 MG/DL 7-18 N NITROGEN (test code = BUN) GLOMERULAR >=60 max >60 The Glomerular FILTRATION RATE estimate estGFR Filtratio n Rate is a (test code = GFR) calculated parameterbased on serum Creatinin e, patient age and sex. GFR valuesless than 60 mL/min/1.73 square meters are danelle cative ofChronic Kidne y Disease. Values less than 15 mL/min/1.73squa re meters indicate Kidney failure. The calculation for GFR is based on the CK D-EPI (2020) calculat ion. This formulais race indifferent and is the recommended formula for GFR by the National Kidney Foundation for Adults.The GFR will not calculate i f the sex is unknown or if thepatient's ag e is <18 years. CREATININE (test 0.9 MG/DL 0.8-1.3 N code = CREAT) TOTAL PROTEIN 8.1 G/DL 6.4-8.2 (test code = PROT) ALBUMIN (test code 3.5 G/DL 3.4-5.0 N = ALB) GLOBULIN (test 4.6 GM/dL code = GLOB) ALBUMIN/GLOBULIN 0.8 RATIO 1.2-2.2 L RATIO (test code = A/G) CALCIUM (test code 8.2 MG/DL 8.5-10.1 L = CA) BILIRUBIN TOTAL 1.20 MG/DL 0.2-1.2 N (test code = BILT) SGOT/AST (test 128 Unit/L 15-37 H code = AST) SGPT/ALT (test 119 Unit/L 12-78 H code = ALT) ALKALINE 84 Unit/L 50-136 N PHOSPHATASE TOTAL (test code = ALKP) CBC W/AUTO [id number] 04:01:00 Test Item Value Reference Range Interpretation Comments WHITE BLOOD CELL (test code = 7.4 K/mm3 3.5-11.0 N WBC) RED BLOOD CELL (test code = 4.14 M/mm3 4.70-6.10 L RBC) HEMOGLOBIN (test code = HGB) 12.6 G/DL 12.3-15.9 HEMATOCRIT (test code = HCT) 34.2 % 35.8-46.7 L MEAN CELL VOLUME (test code = 82.6 Fl 86.3-98.9 L MCV) MEAN CELL HGB (test code = MCH) 30.4 pg 28.9-34.4 N MEAN CELL HGB CONCETRATION 36.8 G/DL 32.1-34.5 H (test code = MCHC) RED CELL DISTRIBUTION WIDTH 13.1 SD 11.5-14.5 N (test code = RDW) PLATELET COUNT (test code = 218 K/mm3 150-450 N PLT) MEAN PLATELET VOLUME (test code 11.70 fL 7.0-9.6 H = MPV) NEUTROPHIL % (test code = NT%) 73.2 % 40-76 IMMATURE GRANULOCYTE % (test 0.1 % 0.0-5.0 N code = IG%) LYMPHOCYTE % (test code = LY%) 17.6 % 20.5-51.1 L MONOCYTE % (test code = MO%) 8.8 % 1.7-9.3 N EOSINOPHIL % (test code = EO%) 0.0 % 0.0-6.0 N BASOPHIL % (test code = BA%) 0.3 % 0.0-2.0 N NUCLEATED RBC % (test code = 0.0 /100WBC% 0.0-1.0 N NRBC%) NEUTROPHIL # (test code = NT#) 5.4 K/mm3 1.8-7.6 N IMMATURE GRANULOCYTE # (test 0.01 x10 3/uL 0.00-0.03 N code = IG#) LYMPHOCYTE # (test code = LY#) 1.3 K/mm3 0.6-3.0 N MONOCYTE # (test code = MO#) 0.7 K/mm3 0.2-1.5 N EOSINOPHIL # (test code = EO#) 0.0 K/mm3 0.0-0.4 N BASOPHIL # (test code = BA#) 0.0 K/mm3 0.0-0.2 N NUCLEATED RBC # (test code = 0.0 K/mm3 0.00-0.01 N NRBC#) MANUAL DIFF REQUIRED (test code NO DIFF/SCN CRITERIA = MDIFF) - CT ABD PELVIS [id number] 19:58:00 [facility] 1985 Sex: M Name: QUETA GONSALEZ [facility] : 1985 Age/S: 37 / M [address] Unit #: [id number] Loc: [place] [address] Phys: Kasia Moore ACCOUNTS PAYABLE ACCOUNTANT Acct: [id number] Dis Date: Status: REG ER PHONE #: [phone] Exam Date: 02/17/20221910 FAX #: Reason: PAIN EXAMS: CPT: [id number] CT ABD PELVIS W/CONT 67433 Location: CT of the abdomen and CT of the pelvis , conducted on 02/17/22 CLINICAL HISTORY: Abdominal pain COMPARISON EXAM: 07/22/21 CT examination of the abdomen and pelvis TECHNIQUE: A CT scan of the abdomen and pelvis conducted scanning in the axial plane acquiring contiguous 5mm slice thickness from the diaphragms through the pubic symphysis with non ionic contrast administered . There is acquisition of 2D coronal and sagittal reformatted images acquired. This was acquired on CT workstationusing MPR software . The examination was performed on updated helical CT scanner , utilizing low-dose radiation technique. Automatic exposure control technique was utilized to reduce radiation dose. Unless otherwise specified , incidental findings do not require dedicated imaging followup. The DLP is 124.0 mGy- cm FINDINGS: The liver demonstrates normal size, attenuation and contour without focal masses or enlargement. The patient is status post cholecystectomy. There is no significant biliary distention is seen. The spleen is normal in size without focal defects. The adrenal glands are unremarkable without masses. The pancreas demonstrates normal contour and attenuation without definite focal masses or enlargement. There is no effacement of the peripancreatic fat to suggest an inflammatory process. There are no peripancreatic fluid collections. Bowel gas pattern is non obstructed and non specific without pneumoperitoneum or pneumatosis. There is visualization of a normal-appearing appendix. No appendicitis. No definite acute bowel pathology or extraluminal bowel collection. Both the abdominal aorta and IVC are unremarkable. There is no significant adenopathy within the abdomen. PAGE 1 Signed Report (CONTINUED) Name: QUETA DOYLE [facility] [place] : 1985 Age/S: 37 / M [address] Unit #: [id number] Loc: [place] [address] Phys: Kasia Moore NP Acct: [id number] Dis Date: Status: REG ER PHONE #: [phone] Exam Date: 02/17/2022 191 FAX #: Reason: PAIN EXAMS: CPT: [id number] CT ABD PELVIS W/CONT 02432 (Continued) The kidneys demonstrate no hydronephrosis. No fluid collecti ons are identified. The bases of the lungs are clear. The pelvic contents are unremarkable without mass. No focal fluid collections or adenopathy. IMPRESSION: No definite acute bowel pathology. Visualization of a normal-appearing appendix. No extraluminal collection identifiable Cholecystectomy changes at 1958 Reported andsigned by: Chanda Easley M.D. CC: Kasia Moore NP Technologist:Pacheco John, RT(R) CTDI: DLP: Trnscb Date/Time: 02/17/2022 (1957) RadhaDAS6 Orig Print D/T: S: 02/17/2022 (2000) PAGE 2 Signed Report- XR CHEST 1 [id number] 19:35:00 [facility] 1985 Sex: M Name: QUETA GONSALEZ [facility] : 1985 Age/S: 37 / M [address] Unit #: [id number] Loc:[place] [address] Phys: Kasia Moore NP Acct: [id number] Dis Date: Status: REG ER PHONE #: [phone] Exam Date: 02/17/20221918 FAX #: Reason: Abdominal Pain EXAMS: CPT: [id number] XR CHEST 1 V 81445 Fluoro Time: DAP (Gy m2): Air Kerma (mGy): EXAM: - XR CHEST 1 V HISTORY: Abdominal pain. FINDINGS: Single AP view of the chest is provided. Heart size and vascularity are within normal limits. There is no evidence of a focal consolidation. There is no pleural effusion or pneumothorax. There is no definite acute osseous abnormality. IMPRESSION: No radiographic evidence of acute cardiopulmonary process. at 1935 Reported and signed by: Sigifredo Olivas M.D. CC: Kasia Moore ACCOUNTS PAYABLE ACCOUNTANT PAGE 1 Signed Report Name: QUETA DOYLE [facility] : 1985 Age/S: 37 / M [address] Unit #: [id number] Loc: [place] [address] Phys: Kasia Moore ACCOUNTS PAYABLE ACCOUNTANT Acct: [id number] Dis Date: Status: REG ER PHONE #: [phone] Exam Date: 02/17/2022 1919 FAX #: Reason: Abdominal Pain EXAMS: CPT: [id number] XR CHEST 1 V 04945 Fluoro Time: DAP (Gy m2): Air Kerma (mGy): (Continued) Technologist: Pacheco John, RT(R) Trnscb Date/Time: 02/17/2022 (1934) [email or web address] Orig Print D/T: S: 02/17/2022 (1937) PAGE 2 Signed ReportCBC W/AUTO [id number] 19:23:00 Test Item Value Reference Range Interpretation Comments WHITE BLOOD CELL (test code = 13.0 K/mm3 3.5-11.0 H WBC) RED BLOOD CELL (test code = 5.20 M/mm3 4.70-6.10 N RBC) HEMOGLOBIN (test code = HGB) 15.8 G/DL 12.3-15.9 N HEMATOCRIT (test code = HCT) 43.8 % 35.8-46.7 N MEAN CELL VOLUME (test code = 84.2 Fl 86.3-98.9 L MCV) MEAN CELL HGB (test code = MCH) 30.4 pg 28.9-34.4 N MEAN CELL HGB CONCETRATION 36.1 G/DL 32.1-34.5 H (test code = MCHC) RED CELL DISTRIBUTION WIDTH 13.3 SD 11.5-14.5 N (test code = RDW) PLATELET COUNT (test code = 329 K/mm3 150-450 N PLT) MEAN PLATELET VOLUME (test code 11.30 fL 7.0-9.6 H = MPV) NEUTROPHIL % (test code = NT%) 90.5 % 40-76 H IMMATURE GRANULOCYTE % (test 0.2 % 0.0-5.0 N code = IG%) LYMPHOCYTE % (test code = LY%) 6.5 % 20.5-51.1 L MONOCYTE % (test code = MO%) 2.5 % 1.7-9.3 N EOSINOPHIL % (test code = EO%) 0.0 % 0.0-6.0 N BASOPHIL % (test code = BA%) 0.3 % 0.0-2.0 N NUCLEATED RBC % (test code = 0.0 /100WBC% 0.0-1.0 N NRBC%) NEUTROPHIL # (test code = NT#) 11.7 K/mm3 1.8-7.6 H IMMATURE GRANULOCYTE # (test 0.03 x10 3/uL 0.00-0.03 N code = IG#) LYMPHOCYTE # (test code = LY#) 0.9 K/mm3 0.6-3.0 N MONOCYTE # (test code = MO#) 0.3 K/mm3 0.2-1.5 N EOSINOPHIL # (test code = EO#) 0.0 K/mm3 0.0-0.4 N BASOPHIL # (test code = BA#) 0.0 K/mm3 0.0-0.2 N NUCLEATED RBC # (test code = 0.0 K/mm3 0.00-0.01 N NRBC#) MANUAL DIFF REQUIRED (test code NO DIFF/SCN CRITERIA = MDIFF) BASIC METABOLIC [id number] 19:18:00 Test Item Value Reference Range Interpretation Comments SODIUM (test code 140 mmol/L 134-147 N = NA) POTASSIUM (test 4.3 mmol/L 3.4-5.0 N code = K) CHLORIDE (test 97 mmol/L 100-108 L code = CL) CARBON DIOXIDE 21 mmol/L 21-32 N (test code = CO2) ANION GAP (test 22.0 GAP calc 4.0-15.0 H code = GAP) GLUCOSE (test code 220 MG/DL 70-110 H = GLU) BLOOD UREA 20 MG/DL 7-18 H NITROGEN (test code = BUN) GLOMERULAR >=60 max >60 The Glomerular FILTRATION RATE estimate estGFR Filtratio n Rate is a (test code = GFR) calculated parameterbased on serum Creatinin e, patient age and sex. GFR valuesless than 60 mL/min/1.73 square meters are danelle cative ofChronic Kidne y Disease. Values less than 15 mL/min/1.73squa re meters indicate Kidney failure. The calculation for GFR is based on the CK D-EPI (2020) calculat ion. This formulais race indifferent and is the recommended formula for GFR by the National Kidney Foundation for Adults.The GFR will not calculate i f the sex is unknown or if thepatient's ag e is <18 years. CREATININE (test 1.4 MG/DL 0.8-1.3 H code = CREAT) CALCIUM (test code 9.7 MG/DL 8.5-10.1 N = CA) HEPATIC FUNCTION [id number] 19:18:00 Test Item Value Reference Range Interpretation Comments TOTAL PROTEIN (test code = PROT) 10.6 G/DL 6.4-8.2 H ALBUMIN (test code = ALB) 4.7 G/DL 3.4-5.0 N BILIRUBIN TOTAL (test code = BILT) 1.10 MG/DL 0.2-1.2 N BILIRUBIN DIRECT (test code = 0.30 MG/DL 0.00-0.30 N BILD) BILIRUBIN INDIRECT (test code = 0.80 MG/DL 0.2-1.2 N BILIND) SGOT/AST (test code = AST) 209 Unit/L 15-37 H SGPT/ALT (test code = ALT) 170 Unit/L 12-78 H ALKALINE PHOSPHATASE TOTAL (test 118 Unit/L 50-136 N code = ALKP) [id number] 19:18:00 Test Item Value Reference Range Interpretation Comments LIPASE (test code = LIP) 39 Unit/L 114-286 L ANTINUCLEAR ANTIBODIES [id number] 09:32:00 Test Item Value Reference Range Interpretation Comments VIANNEY TITER (test SEE REPORT code = ANATITR) VIANNEY HOMOGENEOUS Negative See_Comment Negative <1 :80 PATTERN (test code Borderlin e 1:80 Positive = ANAHOM) >1:80ICAP nomen clature: AC-0For more in formation about Hep-2 nakia l patterns useANApatterns. org, the official websit e for theInternationa l Consensus on An tinuclear Antibody (VIANNEY)P atterronda (ICAP).Performe d At: [facility] [place][Note 2] [id number] [facility] [place], [place] [id number] aubree Baumann MD Ph:[phone] rformed At: [facility] [address] [place], [place] [id number] Kyle L MD Ph:[phone] [ Automated message] The sy stem which generated this result transmit tae reference range : (). The reference range was not used to interpr et this result as normal/abnormal . AB ANTI-SMOOTH [id number] 09:32:00 Test Item Value Reference Range Interpretation Comments AB ANTI-SMOOTH MUSCLE 10 Units 0-19 Negat eitan 0 - 19 Weak (test code = positive 20 - 3 0 SMOOTHAB) Moderate to str yaneth positive >30 Ac tin Antibodies are found in 52-85% of patie nts with autoimmune hepa titis or chronic active hepatitis and in 22% of p atients with primary bi liary cirrhosis. GLUCOSE BEDSIDE [id number] 11:26:00 Test Item Value Reference Range Interpretation Comments GLUCOSE BEDSIDE TESTING (test code 164 mg/dL 70-110 H = GLUBED) GLUCOSE BEDSIDE [id number] 07:44:00 Test Item Value Reference Range Interpretation Comments GLUCOSE BEDSIDE TESTING (test code 134 mg/dL 70-110 H = GLUBED) ACUTE HEPATITIS [id number] 06:11:00 Test Item Value Reference Range Interpretation Comments AB HEPATITIS A IGM Negative Negative (test code = HAVMAB) AG HEPATITIS B Negative Negative SURFACE (test code = HBSAG) AB HEPATITIS B CORE Negative Negative IGM (test code = HBCMAB) AB HEPATITIS C Comment See_Comment INFCE Result Units: s/co (test code = HCVAB) ratioNeg ativeNot infected with HCV, unles s recent infection issus pected or other evidence exists to indicate HCVinfection.Pe rformed At: [facility] [address] [place], [place] [id number] Kyle L MD Ph:[phone] eviously reported result : 0.1 RATIOEdited by: INFCE on 07/24/21:0611~~ ~~~~~~~~~~~ ~~~~~~~~~~~~~~~ ~~~~~~~~~~~ ~ This is a CORRECTED REPOR T [Automated mess age] The system which ge nerated this result tra nsmitted reference range : (). The reference range was not used to interpr et this result as ludmila l/abnormal. HEPATIC FUNCTION [id number] 05:59:00 Test Item Value Reference Range Interpretation Comments TOTAL PROTEIN (test code = PROT) 7.1 G/DL 6.4-8.2 N ALBUMIN (test code = ALB) 3.2 G/DL 3.4-5.0 L BILIRUBIN TOTAL (test code = BILT) 1.00 MG/DL 0.2-1.2 N BILIRUBIN DIRECT (test code = 0.30 MG/DL 0.00-0.30 N BILD) BILIRUBIN INDIRECT (test code = 0.70 MG/DL 0.2-1.2 N BILIND) SGOT/AST (test code = AST) 83 Unit/L 15-37 H SGPT/ALT (test code = ALT) 120 Unit/L 12-78 H ALKALINE PHOSPHATASE TOTAL (test 90 Unit/L 50-136 N code = ALKP) GLUCOSE BEDSIDE [id number] 21:13:00 Test Item Value Reference Range Interpretation Comments GLUCOSE BEDSIDE TESTING (test code 157 mg/dL 70-110 H = GLUBED) CD4 HELPER T-CELL [id number] 17:09:00 Test Item Value Reference Range Interpretation Comments NEUTROPHIL % (test 0.0 % Not Estab. code = NT%) NEUTROPHIL # (test 0.0 x10E3/uL 0.0-0.1 Performed At: HD code = NT#) [facility] [address] [id number] Ray Dugan MD Ph:[phone] WBC (test code = 4.4 x10E3/uL 3.4-10.8 WBCLC) RBC (test code = 3.79 x10E6/uL 4.14-5.80 A RBCLC) HGB (test code = 11.7 g/dL 13.0-17.7 A HGBLC) HCT (test code = 34.0 % 37.5-51.0 A HCTLC) MCV (test code = 90 fL 79-97 MCVLC) MCH (test code = 30.9 pg 26.6-33.0 MCHLC) MCHC (test code = 34.4 g/dL 31.5-35.7 MCHCLC) RDW (test code = 13.5 % 11.6-15.4 RDWLC) PLT (test code = 134 x10E3/uL 150-450 A PLTLC) NEUT % (test code = 70 % Not Estab. NT%LC) LYMPH % (test code = 19 % Not Estab. LY%LC) MONO % (test code = 9 % Not Estab. MO%LC) EOS % (test code = 1 % Not Estab. EO%LC) BASO % (test code = 1 % Not Estab. BA%LC) NEUT # (test code = 3.1 x10E3/uL 1.4-7.0 NT#LC) LYMPH # (test code = 0.8 x10E3/uL 0.7-3.1 LY#LC) MONO # (test code = 0.4 x10E3/uL 0.1-0.9 MO#LC) EOS # (test code = 0.1 x10E3/uL 0.0-0.4 EO#LC) BASO # (test code = 0.0 x10E3/uL 0.0-0.2 BA#LC) PERCENT CD4 HELPER 39.6 % 30.8-58.5 CELLS (test code = CD4P) ABSOLUTE CD4+ CELLS 317 /uL 359-1519 A (test code = CD4A) GLUCOSE BEDSIDE [id number] 16:24:00 Test Item Value Reference Range Interpretation Comments GLUCOSE BEDSIDE TESTING (test code 129 mg/dL 70-110 H = GLUBED) GLUCOSE BEDSIDE [id number] 11:58:00 Test Item Value Reference Range Interpretation Comments GLUCOSE BEDSIDE TESTING (test code 150 mg/dL 70-110 H = GLUBED) - US ABDOMEN [id number] 10:40:00 [facility] 1985 Sex: M Name: QUETA GONSALEZ [facility] : 1985 Age/S: 36 / M [address] [address] Unit #: [id number] Loc: [place] [address] Phys: Kaitlin Porter MD Acct: [id number] Dis Date: Status: ADM IN PHONE #: [phone] Exam Date: 07/23/2021 1010 FAX #: Reason: ELEVATED LFT EXAMS: CPT: [id number] US ABDOMEN [facility] [id number] EXAMINATION: - US ABDOMEN [facility] CLINICAL INDICATION: Male, 36 years old with ELEVATED LFT TECHNIQUE: Grayscale and color Doppler evaluation of the right upper quadrant of the abdomen was performed. COMPARISON: None FINDINGS: Liver: The liver exhibits normal echogenicity and size. No focal hepatic lesion. No intrahepatic biliary ductal dilation. Gallbladder: Gallbladder is free of calculus, wallthickening, and pericholecystic fluid. The common bile duct measures 5mm. Pancreas: The visualized portion demonstrates normal echogenicity. No suspicious lesions or ductal dilation. Right Kidney: The right kidney measures 9.8 cm x 5.2 cm x 5.9 cm in size. No hydronephrosis. No suspicious renal mass noted. No renal calculi noted. Vascular: The visualized portions of the inferior vena cava and aorta are within normal limits. Peritoneum: There is no free fluid in the abdomen. IMPRESSION: No acute sonographic abnormality of the abdomen. at 1040 Reported and signed by: Claudia Fishman M.D. CC: Kaitlin Porter MD; Matthew Carey MD Technologist: Neetu Silva RDMS Trnscb Date/Time: 07/23/2021 (1040) [id number] PAGE 1 Signed Report Name: QUETA DOYLE [facility] : 1985 Age/S: 36 / M [address] [address] Unit #: [id number] Loc: [place] [address] Phys: Kaitlin Porter MD Acct: [id number] Dis Date: Status: ADM IN PHONE #: [phone] Exam Date: 07/23/2021 1010 FAX #: Reason: ELEVATED LFT EXAMS: CPT: [id number] US ABDOMEN LTD [id number] <Continued> Orig Print D/T: S: 07/23/2021 (1043) Probe: PAGE 2 Signed ReportHEPATIC FUNCTION [id number] 09:59:00 Test Item Value Reference Range Interpretation Comments TOTAL PROTEIN (test code = PROT) 7.5 G/DL 6.4-8.2 N ALBUMIN (test code = ALB) 3.3 G/DL 3.4-5.0 L BILIRUBIN TOTAL (test code = BILT) 1.60 MG/DL 0.2-1.2 H BILIRUBIN DIRECT (test code = 0.50 MG/DL 0.00-0.30 H BILD) BILIRUBIN INDIRECT (test code = 1.10 MG/DL 0.2-1.2 N BILIND) SGOT/AST (test code = AST) 182 Unit/L 15-37 H SGPT/ALT (test code = ALT) 161 Unit/L 12-78 H ALKALINE PHOSPHATASE TOTAL (test 102 Unit/L 50-136 N code = ALKP) GLUCOSE BEDSIDE [id number] 08:25:00 Test Item Value Reference Range Interpretation Comments GLUCOSE BEDSIDE TESTING (test code 109 mg/dL 70-110 N = GLUBED) CBC W/AUTO [id number] 07:50:00 Test Item Value Reference Range Interpretation Comments WHITE BLOOD CELL 2.9 K/mm3 3.5-11.0 L (test code = WBC) RED BLOOD CELL (test 3.85 M/mm3 4.70-6.10 L code = RBC) HEMOGLOBIN (test code 11.7 G/DL 12.3-15.9 L = HGB) HEMATOCRIT (test code 32.3 % 35.8-46.7 L = HCT) MEAN CELL VOLUME 83.9 Fl 86.3-98.9 L (test code = MCV) MEAN CELL HGB (test 30.4 pg 28.9-34.4 N code = MCH) MEAN CELL HGB 36.2 G/DL 32.1-34.5 H CONCETRATION (test code = MCHC) RED CELL DISTRIBUTION 12.8 SD 11.5-14.5 N WIDTH (test code = RDW) PLATELET COUNT (test 122 K/mm3 150-450 L code = PLT) MEAN PLATELET VOLUME 11.40 fL 7.0-9.6 H (test code = MPV) NEUTROPHIL % (test 49.6 % 40-76 N code = NT%) IMMATURE GRANULOCYTE 0.0 % 0.0-5.0 N % (test code = IG%) LYMPHOCYTE % (test 37.0 % 20.5-51.1 N code = LY%) MONOCYTE % (test code 7.2 % 1.7-9.3 N = MO%) EOSINOPHIL % (test 5.5 % 0.0-6.0 N code = EO%) BASOPHIL % (test code 0.7 % 0.0-2.0 N = BA%) NUCLEATED RBC % (test 0.0 /100WBC% 0.0-1.0 N code = NRBC%) NEUTROPHIL # (test 1.5 K/mm3 1.8-7.6 L code = NT#) IMMATURE GRANULOCYTE 0.00 x10 3/uL 0.00-0.03 N # (test code = IG#) LYMPHOCYTE # (test 1.1 K/mm3 0.6-3.0 N code = LY#) MONOCYTE # (test code 0.2 K/mm3 0.2-1.5 N = MO#) EOSINOPHIL # (test 0.2 K/mm3 0.0-0.4 N code = EO#) BASOPHIL # (test code 0.0 K/mm3 0.0-0.2 N = BA#) NUCLEATED RBC # (test 0.0 K/mm3 0.00-0.01 N code = NRBC#) MANUAL DIFF REQUIRED NO DIFF/SCN CRITERIA SLIDE R EVIEW (test code = MDIFF) CONSISTA NT WITH AUTO DIFFERENTI AL. COMPREHENSIVE METABOLIC [id number] 05:44:00 Test Item Value Reference Range Interpretation Comments SODIUM (test code = NA) 139 mmol/L 134-147 N POTASSIUM (test code = 3.3 mmol/L 3.4-5.0 L K) CHLORIDE (test code = 103 mmol/L 100-108 N CL) CARBON DIOXIDE (test 30 mmol/L 21-32 N code = CO2) ANION GAP (test code = 6.0 GAP calc 4.0-15.0 N GAP) GLUCOSE (test code = 114 MG/DL 70-110 H GLU) BLOOD UREA NITROGEN 4 MG/DL 7-18 L (test code = BUN) GLOMERULAR FILTRATION >=60 max estimate >60 RATE (test code = GFR) estGFR CREATININE (test code = 0.7 MG/DL 0.8-1.3 L CREAT) TOTAL PROTEIN (test code 7.1 G/DL 6.4-8.2 N = PROT) ALBUMIN (test code = 3.1 G/DL 3.4-5.0 L ALB) GLOBULIN (test code = 4.0 GM/dL GLOB) ALBUMIN/GLOBULIN RATIO 0.8 RATIO 1.2-2.2 L (test code = A/G) CALCIUM (test code = CA) 8.5 MG/DL 8.5-10.1 N BILIRUBIN TOTAL (test 1.60 MG/DL 0.2-1.2 H code = BILT) SGOT/AST (test code = 153 Unit/L 15-37 H AST) SGPT/ALT (test code = 144 Unit/L 12-78 H ALT) ALKALINE PHOSPHATASE 98 Unit/L 50-136 N TOTAL (test code = ALKP) GLUCOSE BEDSIDE [id number] 20:18:00 Test Item Value Reference Range Interpretation Comments GLUCOSE BEDSIDE TESTING (test code 119 mg/dL 70-110 H = GLUBED) GLUCOSE BEDSIDE [id number] 13:11:00 Test Item Value Reference Range Interpretation Comments GLUCOSE BEDSIDE TESTING (test code = 82 mg/dL 70-110 N GLUBED) GLUCOSE BEDSIDE [id number] 10:20:00 Test Item Value Reference Range Interpretation Comments GLUCOSE BEDSIDE TESTING (test code 104 mg/dL 70-110 N = GLUBED) [id number] 05:41:00 Test Item Value Reference Range Interpretation Comments GLYCOSYLATED HEMOGLOBIN (HA1C) 4.8 % A1C 0.0-5.7 N (test code = GLYHGB) ESTIMATED AVERAGE GLUCOSE (test 91 MG/DLest code = EAG) BASIC METABOLIC [id number] 05:34:00 Test Item Value Reference Range Interpretation Comments SODIUM (test code = NA) 137 mmol/L 134-147 N POTASSIUM (test code = 3.4 mmol/L 3.4-5.0 N K) CHLORIDE (test code = 101 mmol/L 100-108 N CL) CARBON DIOXIDE (test 31 mmol/L 21-32 N code = CO2) ANION GAP (test code = 5.0 GAP calc 4.0-15.0 N GAP) GLUCOSE (test code = 133 MG/DL 70-110 H GLU) BLOOD UREA NITROGEN 8 MG/DL 7-18 N (test code = BUN) GLOMERULAR FILTRATION >=60 max estimate >60 RATE (test code = GFR) estGFR CREATININE (test code = 0.8 MG/DL 0.8-1.3 N CREAT) CALCIUM (test code = CA) 8.4 MG/DL 8.5-10.1 L Coronavirus 2019 nCoV [id number] 02:43:00 Test Item Value Reference Range Interpretation Comments Coronavirus 2019 Negative Negative 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 NEGATIVE RESULTSDO NOT P RECLUDE SARS-COV-2 INFE CTION AND SHOULD NOT BE U SEDAS THE SOLE BASIS FOR PATIENT MANAGEMENT DECI SIONS. NEGATIVE RESULT S SHOULD BE CONSIDERED IN T HE CONTEXT OF APATIENT'S RECE NT EXPOSURES, HISTORY, PRESEN CE OF CLINICALSIGNS A ND SYMPTOMS CONSISTENT WITH COVID-19. THE ID NOW COVI D-19 EUA HAS NOT BEEN FDA CL EARED ORAPPROVED. IT HAS BEEN AUTHORIZED BY [facility] FDA UNDER ANEMERGENCY USE AUTHORIZATION F OR USE BY AUTHORIZEDLABOR ATORIES AND PATIENT CARE [facility]. THE TEST HAS BEENAU THORIZED ONLY FOR THE DETECTI ON OF NUCLEIC ACID FROMSARS-C OV-2, NOT FOR ANY OTHER VIRUS ES OR PATHOGENS, AND ISONLY AUTHORIZED FOR THE DURATION OF THE DECLARAT ION THATCIRCUMSTANC ES EXIST JUSTIFYING THE AUTHORIZATION OFEMERGENCY USE OF IN VITRO DIAGNOSTIC TEST FOR DICTATIONAND/OR DIAGNOSIS OF COVID-19 UNDER SECTION 564(B)(1) OF [facility], 21 [place].C. 360bbb-3 (b)(1), UNLESS THE AUTH ORIZATION ISTERMINATED OR REVOKED SOONER. - CT ABD PELVIS [id number] 00:37:00 [facility] 1985 Sex: M Name: QUETA GONSALEZ [facility] : 1985 Age/S: 36 / M [id number] [address] Unit #: [id number] Loc:[place] [address] Phys: Boy Costa MD Acct: [id number] Dis Date: Status: REG ER PHONE #: [phone] Exam Date: 07/22/2021 0020 FAX #: Reason: abdominal pain, vomiting EXAMS: CPT: [id number] CTABD PELVIS W/CONT 51879 LOCATION: Q15 HISTORY: 36-year-old male presents with abdominal pain with vomiting. COMMENT: Axial CT imaging of this patient's abdomen and pelvis was obtained with IV contrast.Coronal and sagittal soft tissue reconstructions were included. An older examination obtained July 10, 2020 is available for comparison. CONTRAST: 100 mL of Isovue-300 nonionic contrast was injected into the right antecubital vein. Serum creatinine level was 1.0 and the estimated GFR was greater than 60 mL/m. One or more of the following dose reduction techniques are used: Automated exposure control, adjustment of the mA and/or kV according the patient size, and/or utilization of iterative reconstruction technique. DLP: 185.05 mGy-cm FINDINGS: The lung bases are clear. The cardiac silhouette is unremarkable. The liver, spleen, pancreas, adrenal glands, and kidneys exhibit no acute findings. Again seen is subtle decreased attenuation of liver compatible with fatty infiltration. Cholecystectomy clips are again noted. Again noted is a submucosal edema involving the second portion of the duodenum. The upper intestinal tract otherwise is unremarkable, and the small intestine is unremarkable. No abnormalities are seen in the appendix. The colon demonstrates findings of submucosal edema with hyperemia throughout its length, compatible with colitis. This is unchanged in appearance from the prior study. There is no ascites or adenopathy present. PAGE 1 Signed Report (CONTINUED) Name: QUETA DOYLE : 1985 Age/S: 36 / M [id number] Unit #: [id number] Loc: [place] [address] Phys: Boy Costa MD Acct: [id number] Dis Date: Status: REG ER PHONE #: [phone] Exam Date: 07/22/2021 0020 FAX #: Reason: abdominal pain, vomiting EXAMS: CPT: [id number] CT ABD PELVIS W/CONT 09124 <Continued> In the pelvis the urinary bladder, prostate gland, and seminal vesicles are unremarkable. The vascular anatomy is unremarkable. The musculoskeletal anatomy is unremarkable. IMPRESSION: Redemonstrated are findings in this patient's colon suspicious for pancolitis. Submucosal edema is also seen in the duodenal C-loop. This is suspicious for duodenitis. Fatty infiltration is again seen in the liver. at 0037 Reported and signed by: Barrera Hassan M.D. CC: Boy Costa MD Technologist:Tien Cardozo(R)(CT) CTDI: DLP: Trnscb Date/Time: 07/22/2021 (003) [email or web address] Orig Print D/T: S: 07/22/2021 (004) PAGE 2 Signed ReportCOMPREHENSIVE METABOLIC PANEL 2021-07-21 23:53:00 Test Item Value Reference Range Interpretation Comments SODIUM (test code = NA) 138 mmol/L 134-147 N POTASSIUM (test code = 2.7 mmol/L 3.4-5.0 LL K) CHLORIDE (test code = 99 mmol/L 100-108 L CL) CARBON DIOXIDE (test 31 mmol/L 21-32 N code = CO2) ANION GAP (test code = 8.0 GAP calc 4.0-15.0 N GAP) GLUCOSE (test code = 165 MG/DL 70-110 H GLU) BLOOD UREA NITROGEN 9 MG/DL 7-18 N (test code = BUN) GLOMERULAR FILTRATION >=60 max estimate >60 RATE (test code = GFR) estGFR CREATININE (test code = 1.0 MG/DL 0.8-1.3 N CREAT) TOTAL PROTEIN (test code 8.6 G/DL 6.4-8.2 H = PROT) ALBUMIN (test code = 3.7 G/DL 3.4-5.0 N ALB) GLOBULIN (test code = 4.9 GM/dL GLOB) ALBUMIN/GLOBULIN RATIO 0.8 RATIO 1.2-2.2 L (test code = A/G) CALCIUM (test code = CA) 9.2 MG/DL 8.5-10.1 N BILIRUBIN TOTAL (test 1.80 MG/DL 0.2-1.2 H code = BILT) SGOT/AST (test code = 16 Unit/L 15-37 N AST) SGPT/ALT (test code = 28 Unit/L 12-78 N ALT) ALKALINE PHOSPHATASE 87 Unit/L 50-136 N TOTAL (test code = ALKP) [id number] 23:53:00 Test Item Value Reference Range Interpretation Comments LIPASE (test code = LIP) 99 Unit/L 114-286 L CBC W/AUTO [id number] 23:45:00 Test Item Value Reference Range Interpretation Comments WHITE BLOOD CELL (test code = 3.6 K/mm3 3.5-11.0 N WBC) RED BLOOD CELL (test code = 4.35 M/mm3 4.70-6.10 L RBC) HEMOGLOBIN (test code = HGB) 13.1 G/DL 12.3-15.9 N HEMATOCRIT (test code = HCT) 36.0 % 35.8-46.7 N MEAN CELL VOLUME (test code = 82.8 Fl 86.3-98.9 L MCV) MEAN CELL HGB (test code = MCH) 30.1 pg 28.9-34.4 N MEAN CELL HGB CONCETRATION 36.4 G/DL 32.1-34.5 H (test code = MCHC) RED CELL DISTRIBUTION WIDTH 12.8 SD 11.5-14.5 N (test code = RDW) PLATELET COUNT (test code = 158 K/mm3 150-450 N PLT) MEAN PLATELET VOLUME (test code 11.40 fL 7.0-9.6 H = MPV) NEUTROPHIL % (test code = NT%) 47.7 % 40-76 N IMMATURE GRANULOCYTE % (test 0.0 % 0.0-5.0 N code = IG%) LYMPHOCYTE % (test code = LY%) 38.7 % 20.5-51.1 N MONOCYTE % (test code = MO%) 11.1 % 1.7-9.3 H EOSINOPHIL % (test code = EO%) 1.9 % 0.0-6.0 N BASOPHIL % (test code = BA%) 0.6 % 0.0-2.0 N NUCLEATED RBC % (test code = 0.0 /100WBC% 0.0-1.0 N NRBC%) NEUTROPHIL # (test code = NT#) 1.7 K/mm3 1.8-7.6 L IMMATURE GRANULOCYTE # (test 0.00 x10 3/uL 0.00-0.03 N code = IG#) LYMPHOCYTE # (test code = LY#) 1.4 K/mm3 0.6-3.0 N MONOCYTE # (test code = MO#) 0.4 K/mm3 0.2-1.5 N EOSINOPHIL # (test code = EO#) 0.1 K/mm3 0.0-0.4 N BASOPHIL # (test code = BA#) 0.0 K/mm3 0.0-0.2 N NUCLEATED RBC # (test code = 0.0 K/mm3 0.00-0.01 N NRBC#) MANUAL DIFF REQUIRED (test code NO DIFF/SCN CRITERIA = MDIFF) CHEM [id number] 10:46:00 Test Item Value Reference Range Interpretation Comments Glucose Lvl (test code = Glucose Lvl) 87 70-99 [facility] [id number] 10:46:00 Test Item Value Reference Range Interpretation Comments BUN (test code = BUN) 6 7-22 [facility] [id number] 10:46:00 Test Item Value Reference Range Interpretation Comments Creatinine Lvl (test code = Creatinine 0.70 0.50-1.40 Lvl) [facility] [employer] [id number] 10:46:00 Test Item Value Reference Range Interpretation Comments Sodium Lvl (test code = Sodium Lvl) 147 135-145 [facility] [id number] 10:46:00 Test Item Value Reference Range Interpretation Comments Potassium Lvl (test code = Potassium 3.1 3.5-5.1 Lvl) [place] [id number] 10:46:00 Test Item Value Reference Range Interpretation Comments Chloride Lvl (test code = Chloride Lvl) 111 95-109 [place] 735341-09-25 10:46:00 Test Item Value Reference Range Interpretation Comments CO2 (test code = CO2) 30 24-32 [place] 735341-09-25 10:46:00 Test Item Value Reference Range Interpretation Comments AGAP (test code = AGAP) 9.1 10.0-20.0 [place] 735341-09-25 10:46:00 Test Item Value Reference Range Interpretation Comments Calcium Lvl (test code = Calcium Lvl) 8.0 8.5-10.5 [place] 735341-09-25 10:46:00 Test Item Value Reference Range Interpretation Comments B/C Ratio (test code = B/C Ratio) 9 1 25 [place] 735341-09-25 10:46:00 Test Item Value Reference Range Interpretation Comments Total Protein (test code = Total 6.5 6.4-8.4 Protein) [place] 735341-09-25 10:46:00 Test Item Value Reference Range Interpretation Comments Albumin Lvl (test code = Albumin Lvl) 3.0 3.5-5.0 [place] 735341-09-25 10:46:00 Test Item Value Reference Range Interpretation Comments Globulin (test code = Globulin) 3.5 2.7-4.2 [place] 735341-09-25 10:46:00 Test Item Value Reference Range Interpretation Comments A/G Ratio (test code = A/G Ratio) 0.9 1 0.7-1.6 [place] 735341-09-25 10:46:00 Test Item Value Reference Range Interpretation Comments ALT (test code = ALT) 157 See_Comment [Auto mated message] The system which ge nerated this result transmit tae reference range : <=65. The reference range was not used to interpr et this result as ludmila l/abnormal. [place] 735341-09-25 10:46:00 Test Item Value Reference Range Interpretation Comments AST (test code = AST) 120 See_Comment [Auto mated message] The system which ge nerated this result transmit tae reference range : <=37. The reference range was not used to interpr et this result as ludmila l/abnormal. [place] 735341-09-25 10:46:00 Test Item Value Reference Range Interpretation Comments Alk Phos (test code = Alk Phos) 146 39-136 [place] 735341-09-25 10:46:00 Test Item Value Reference Range Interpretation Comments Bili Total (test code = Bili Total) 1.2 0.2-1.3 [place] 735341-09-25 10:46:00 Test Item Value Reference Range Interpretation Comments eGFR (test code = eGFR) 121 [place] 735341-09-25 10:46:00 Test Item Value Reference Range Interpretation Comments Glucose Lvl (test code = Glucose Lvl) 87 70-99 [facility]2021-09-25 10:46:00 Test Item Value Reference Range Interpretation Comments BUN (test code = BUN) 6 7-22 [place] 735341-09-25 10:46:00 Test Item Value Reference Range Interpretation Comments Creatinine Lvl (test code = Creatinine 0.70 0.50-1.40 Lvl) [facility]2021-09-25 10:46:00 Test Item Value Reference Range Interpretation Comments Sodium Lvl (test code = Sodium Lvl) 147 135-145 [facility]2021-09-25 10:46:00 Test Item Value Reference Range Interpretation Comments Potassium Lvl (test code = Potassium 3.1 3.5-5.1 Lvl) [place] 735341-09-25 10:46:00 Test Item Value Reference Range Interpretation Comments Chloride Lvl (test code = Chloride Lvl) 111 95-109 [place] 735341-09-25 10:46:00 Test Item Value Reference Range Interpretation Comments CO2 (test code = CO2) 30 24-32 [place] 735341-09-25 10:46:00 Test Item Value Reference Range Interpretation Comments AGAP (test code = AGAP) 9.1 10.0-20.0 [place] 735341-09-25 10:46:00 Test Item Value Reference Range Interpretation Comments Calcium Lvl (test code = Calcium Lvl) 8.0 8.5-10.5 [place] 735341-09-25 10:46:00 Test Item Value Reference Range Interpretation Comments B/C Ratio (test code = B/C Ratio) 9 1 6-25 [facility]2021-09-25 10:46:00 Test Item Value Reference Range Interpretation Comments Total Protein (test code = Total 6.5 6.4-8.4 Protein) [facility]2021-09-25 10:46:00 Test Item Value Reference Range Interpretation Comments Albumin Lvl (test code = Albumin Lvl) 3.0 3.5-5.0 [facility]2021-09-25 10:46:00 Test Item Value Reference Range Interpretation Comments Globulin (test code = Globulin) 3.5 2.7-4.2 [facility]2021-09-25 10:46:00 Test Item Value Reference Range Interpretation Comments A/G Ratio (test code = A/G Ratio) 0.9 1 0.7-1.6 [place] 735341-09-25 10:46:00 Test Item Value Reference Range Interpretation Comments ALT (test code = ALT) 157 See_Comment [Auto mated message] The system which ge nerated this result transmit tae reference range : <=65. The reference range was not used to interpr et this result as ludmila l/abnormal. [facility]2021-09-25 10:46:00 Test Item Value Reference Range Interpretation Comments AST (test code = AST) 120 See_Comment [Auto mated message] The system which ge nerated this result transmit tae reference range : <=37. The reference range was not used to interpr et this result as ludmila l/abnormal. [facility]2021-09-25 10:46:00 Test Item Value Reference Range Interpretation Comments Alk Phos (test code = Alk Phos) 146 39-136 [place] 735341-09-25 10:46:00 Test Item Value Reference Range Interpretation Comments Bili Total (test code = Bili Total) 1.2 0.2-1.3 [facility]2021-09-25 10:46:00 Test Item Value Reference Range Interpretation Comments eGFR (test code = eGFR) 121 [place] 735341-09-25 10:46:00 Test Item Value Reference Range Interpretation Comments Glucose Lvl (test code = Glucose Lvl) 87 70-99 [facility]2021-09-25 10:46:00 Test Item Value Reference Range Interpretation Comments BUN (test code = BUN) 6 7-22 [facility]2021-09-25 10:46:00 Test Item Value Reference Range Interpretation Comments Creatinine Lvl (test code = Creatinine 0.70 0.50-1.40 Lvl) [facility]2021-09-25 10:46:00 Test Item Value Reference Range Interpretation Comments Sodium Lvl (test code = Sodium Lvl) 147 135-145 [facility]2021-09-25 10:46:00 Test Item Value Reference Range Interpretation Comments Potassium Lvl (test code = Potassium 3.1 3.5-5.1 Lvl) [facility]2021-09-25 10:46:00 Test Item Value Reference Range Interpretation Comments Chloride Lvl (test code = Chloride Lvl) 111 95-109 [facility]2021-09-25 10:46:00 Test Item Value Reference Range Interpretation Comments CO2 (test code = CO2) 30 24-32 [facility]2021-09-25 10:46:00 Test Item Value Reference Range Interpretation Comments AGAP (test code = AGAP) 9.1 10.0-20.0 [facility]2021-09-25 10:46:00 Test Item Value Reference Range Interpretation Comments Calcium Lvl (test code = Calcium Lvl) 8.0 8.5-10.5 [facility]2021-09-25 10:46:00 Test Item Value Reference Range Interpretation Comments B/C Ratio (test code = B/C Ratio) 9 1 07-31 [facility]2021-09-25 10:46:00 Test Item Value Reference Range Interpretation Comments Total Protein (test code = Total 6.5 6.4-8.4 Protein) [facility]2021-09-25 10:46:00 Test Item Value Reference Range Interpretation Comments Albumin Lvl (test code = Albumin Lvl) 3.0 3.5-5.0 [facility]2021-09-25 10:46:00 Test Item Value Reference Range Interpretation Comments Globulin (test code = Globulin) 3.5 2.7-4.2 [place] 735341-09-25 10:46:00 Test Item Value Reference Range Interpretation Comments A/G Ratio (test code = A/G Ratio) 0.9 1 0.7-1.6 [facility]2021-09-25 10:46:00 Test Item Value Reference Range Interpretation Comments ALT (test code = ALT) 157 See_Comment [Auto mated message] The system which ge nerated this result transmit tae reference range : <=65. The reference range was not used to interpr et this result as ludmila l/abnormal. [facility]2021-09-25 10:46:00 Test Item Value Reference Range Interpretation Comments AST (test code = AST) 120 See_Comment [Auto mated message] The system which ge nerated this result transmit tae reference range : <=37. The reference range was not used to interpr et this result as ludmila l/abnormal. [facility]2021-09-25 10:46:00 Test Item Value Reference Range Interpretation Comments Alk Phos (test code = Alk Phos) 146 39-136 [facility]2021-09-25 10:46:00 Test Item Value Reference Range Interpretation Comments Bili Total (test code = Bili Total) 1.2 0.2-1.3 [facility]2021-09-25 10:46:00 Test Item Value Reference Range Interpretation Comments eGFR (test code = eGFR) 121 [facility]2021-09-25 10:46:00 Test Item Value Reference Range Interpretation Comments Glucose Lvl (test code = Glucose Lvl) 87 70-99 [facility] [id number] 10:46:00 Test Item Value Reference Range Interpretation Comments BUN (test code = BUN) 6 7-22 [place] 735341-09-25 10:46:00 Test Item Value Reference Range Interpretation Comments Creatinine Lvl (test code = Creatinine 0.70 0.50-1.40 Lvl) [place] 735341-09-25 10:46:00 Test Item Value Reference Range Interpretation Comments Sodium Lvl (test code = Sodium Lvl) 147 135-145 [facility] [id number] 10:46:00 Test Item Value Reference Range Interpretation Comments Potassium Lvl (test code = Potassium 3.1 3.5-5.1 Lvl) [place] 735341-09-25 10:46:00 Test Item Value Reference Range Interpretation Comments Chloride Lvl (test code = Chloride Lvl) 111 95-109 [place] 735341-09-25 10:46:00 Test Item Value Reference Range Interpretation Comments CO2 (test code = CO2) 30 24-32 [place] 735341-09-25 10:46:00 Test Item Value Reference Range Interpretation Comments AGAP (test code = AGAP) 9.1 10.0-20.0 [place] 735341-09-25 10:46:00 Test Item Value Reference Range Interpretation Comments Calcium Lvl (test code = Calcium Lvl) 8.0 8.5-10.5 [place] 735341-09-25 10:46:00 Test Item Value Reference Range Interpretation Comments B/C Ratio (test code = B/C Ratio) 9 1 6-25 [place] 735341-09-25 10:46:00 Test Item Value Reference Range Interpretation Comments Total Protein (test code = Total 6.5 6.4-8.4 Protein) [place] 735341-09-25 10:46:00 Test Item Value Reference Range Interpretation Comments Albumin Lvl (test code = Albumin Lvl) 3.0 3.5-5.0 [place] 735341-09-25 10:46:00 Test Item Value Reference Range Interpretation Comments Globulin (test code = Globulin) 3.5 2.7-4.2 [place] 735341-09-25 10:46:00 Test Item Value Reference Range Interpretation Comments A/G Ratio (test code = A/G Ratio) 0.9 1 0.7-1.6 [place] 735341-09-25 10:46:00 Test Item Value Reference Range Interpretation Comments ALT (test code = ALT) 157 See_Comment [Auto mated message] The system which ge nerated this result transmit tae reference range : <=65. The reference range was not used to interpr et this result as ludmila l/abnormal. [place] 735341-09-25 10:46:00 Test Item Value Reference Range Interpretation Comments AST (test code = AST) 120 See_Comment [Auto mated message] The system which ge nerated this result transmit tae reference range : <=37. The reference range was not used to interpr et this result as ludmila l/abnormal. [place] 735341-09-25 10:46:00 Test Item Value Reference Range Interpretation Comments Alk Phos (test code = Alk Phos) 146 39-136 [place] 735341-09-25 10:46:00 Test Item Value Reference Range Interpretation Comments Bili Total (test code = Bili Total) 1.2 0.2-1.3 [place] 735341-09-25 10:46:00 Test Item Value Reference Range Interpretation Comments eGFR (test code = eGFR) 121 [facility]2021-09-24 22:59:00 Test Item Value Reference Range Interpretation Comments Phosphorus (test code = Phosphorus) 2.3 2.5-4.5 [facility]2021-09-24 22:59:00 Test Item Value Reference Range Interpretation Comments Glucose Lvl (test code = Glucose Lvl) 103 70-99 [facility]2021-09-24 22:59:00 Test Item Value Reference Range Interpretation Comments BUN (test code = BUN) 5 7-22 [place] 735341-09-24 22:59:00 Test Item Value Reference Range Interpretation Comments Creatinine Lvl (test code = Creatinine 0.70 0.50-1.40 Lvl) [facility]2021-09-24 22:59:00 Test Item Value Reference Range Interpretation Comments Sodium Lvl (test code = Sodium Lvl) 147 135-145 [place] 735341-09-24 22:59:00 Test Item Value Reference Range Interpretation Comments Potassium Lvl (test code = Potassium 3.2 3.5-5.1 Lvl) [place] 735341-09-24 22:59:00 Test Item Value Reference Range Interpretation Comments Chloride Lvl (test code = Chloride Lvl) 111 95-109 [place] 735341-09-24 22:59:00 Test Item Value Reference Range Interpretation Comments CO2 (test code = CO2) 27 24-32 [place] 735341-09-24 22:59:00 Test Item Value Reference Range Interpretation Comments Phosphorus (test code = Phosphorus) 2.3 2.5-4.5 [place] 735341-09-24 22:59:00 Test Item Value Reference Range Interpretation Comments Glucose Lvl (test code = Glucose Lvl) 103 70-99 [place] 735341-09-24 22:59:00 Test Item Value Reference Range Interpretation Comments BUN (test code = BUN) 5 7-22 [place] 735341-09-24 22:59:00 Test Item Value Reference Range Interpretation Comments Creatinine Lvl (test code = Creatinine 0.70 0.50-1.40 Lvl) [place] 735341-09-24 22:59:00 Test Item Value Reference Range Interpretation Comments Sodium Lvl (test code = Sodium Lvl) 147 135-145 [place] 735341-09-24 22:59:00 Test Item Value Reference Range Interpretation Comments Potassium Lvl (test code = Potassium 3.2 3.5-5.1 Lvl) [place] 735341-09-24 22:59:00 Test Item Value Reference Range Interpretation Comments Chloride Lvl (test code = Chloride Lvl) 111 95-109 [place] 735341-09-24 22:59:00 Test Item Value Reference Range Interpretation Comments Calcium Lvl (test code = Calcium Lvl) 8.0 8.5-10.5 [place] 735341-09-24 22:59:00 Test Item Value Reference Range Interpretation Comments CO2 (test code = CO2) 27 24-32 [place] 735341-09-24 22:59:00 Test Item Value Reference Range Interpretation Comments Calcium Lvl (test code = Calcium Lvl) 8.0 8.5-10.5 [place] 735341-09-24 22:59:00 Test Item Value Reference Range Interpretation Comments AGAP (test code = AGAP) 12.2 10.0-20.0 [place] 735341-09-24 22:59:00 Test Item Value Reference Range Interpretation Comments eGFR (test code = eGFR) 121 [place] 044741-09-24 22:59:00 Test Item Value Reference Range Interpretation Comments PT (test code = PT) 14.2 s 12.0-14.7 [place] 044741-09-24 22:59:00 Test Item Value Reference Range Interpretation Comments INR (test code = INR) 1.11 1 0.85-1.17 [place] 044741-09-24 22:59:00 Test Item Value Reference Range Interpretation Comments PTT (test code = PTT) 25.5 s 22.9-35.8 [place] 735341-09-24 22:59:00 Test Item Value Reference Range Interpretation Comments AGAP (test code = AGAP) 12.2 10.0-20.0 [place] 735341-09-24 22:59:00 Test Item Value Reference Range Interpretation Comments eGFR (test code = eGFR) 121 [place] 044741-09-24 22:59:00 Test Item Value Reference Range Interpretation Comments PT (test code = PT) 14.2 s 12.0-14.7 [place] [address]-09-24 22:59:00 Test Item Value Reference Range Interpretation Comments INR (test code = INR) 1.11 1 0.85-1.17 [place] [address]-09-24 22:59:00 Test Item Value Reference Range Interpretation Comments PTT (test code = PTT) 25.5 s 22.9-35.8 [place] 735341-09-24 22:59:00 Test Item Value Reference Range Interpretation Comments Phosphorus (test code = Phosphorus) 2.3 2.5-4.5 [place] 735341-09-24 22:59:00 Test Item Value Reference Range Interpretation Comments Glucose Lvl (test code = Glucose Lvl) 103 70-99 [place] 735341-09-24 22:59:00 Test Item Value Reference Range Interpretation Comments BUN (test code = BUN) 5 7-22 [place] 735341-09-24 22:59:00 Test Item Value Reference Range Interpretation Comments Creatinine Lvl (test code = Creatinine 0.70 0.50-1.40 Lvl) [place] 735341-09-24 22:59:00 Test Item Value Reference Range Interpretation Comments Sodium Lvl (test code = Sodium Lvl) 147 135-145 [place] 735341-09-24 22:59:00 Test Item Value Reference Range Interpretation Comments Potassium Lvl (test code = Potassium 3.2 3.5-5.1 Lvl) [place] 735341-09-24 22:59:00 Test Item Value Reference Range Interpretation Comments Chloride Lvl (test code = Chloride Lvl) 111 95-109 [place] 735341-09-24 22:59:00 Test Item Value Reference Range Interpretation Comments CO2 (test code = CO2) 27 24-32 [place] 735341-09-24 22:59:00 Test Item Value Reference Range Interpretation Comments Calcium Lvl (test code = Calcium Lvl) 8.0 8.5-10.5 [place] 735341-09-24 22:59:00 Test Item Value Reference Range Interpretation Comments AGAP (test code = AGAP) 12.2 10.0-20.0 [place] 735341-09-24 22:59:00 Test Item Value Reference Range Interpretation Comments eGFR (test code = eGFR) 121 [place] 044741-09-24 22:59:00 Test Item Value Reference Range Interpretation Comments PT (test code = PT) 14.2 s 12.0-14.7 [place] 044741-09-24 22:59:00 Test Item Value Reference Range Interpretation Comments INR (test code = INR) 1.11 1 0.85-1.17 [place] 044741-09-24 22:59:00 Test Item Value Reference Range Interpretation Comments PTT (test code = PTT) 25.5 s 22.9-35.8 [place] 735341-09-24 22:59:00 Test Item Value Reference Range Interpretation Comments Phosphorus (test code = Phosphorus) 2.3 2.5-4.5 [place] 735341-09-24 22:59:00 Test Item Value Reference Range Interpretation Comments Glucose Lvl (test code = Glucose Lvl) 103 70-99 [place] 735341-09-24 22:59:00 Test Item Value Reference Range Interpretation Comments BUN (test code = BUN) 5 7-22 [place] 735341-09-24 22:59:00 Test Item Value Reference Range Interpretation Comments Creatinine Lvl (test code = Creatinine 0.70 0.50-1.40 Lvl) [place] 735341-09-24 22:59:00 Test Item Value Reference Range Interpretation Comments Sodium Lvl (test code = Sodium Lvl) 147 135-145 [place] 735341-09-24 22:59:00 Test Item Value Reference Range Interpretation Comments Potassium Lvl (test code = Potassium 3.2 3.5-5.1 Lvl) [place] 735341-09-24 22:59:00 Test Item Value Reference Range Interpretation Comments Chloride Lvl (test code = Chloride Lvl) 111 95-109 [place] 735341-09-24 22:59:00 Test Item Value Reference Range Interpretation Comments CO2 (test code = CO2) 27 24-32 [place] 735341-09-24 22:59:00 Test Item Value Reference Range Interpretation Comments Calcium Lvl (test code = Calcium Lvl) 8.0 8.5-10.5 [place] 735341-09-24 22:59:00 Test Item Value Reference Range Interpretation Comments AGAP (test code = AGAP) 12.2 10.0-20.0 [place] 735341-09-24 22:59:00 Test Item Value Reference Range Interpretation Comments eGFR (test code = eGFR) 121 [place] 044741-09-24 22:59:00 Test Item Value Reference Range Interpretation Comments PT (test code = PT) 14.2 s 12.0-14.7 [place] 044741-09-24 22:59:00 Test Item Value Reference Range Interpretation Comments INR (test code = INR) 1.11 1 0.85-1.17 [place] 044741-09-24 22:59:00 Test Item Value Reference Range Interpretation Comments PTT (test code = PTT) 25.5 s 22.9-35.8 [place] 573671-09-24 16:42:00 Test Item Value Reference Range Interpretation Comments Coronavirus (COVID-19) Not Detected (10/30/20 MINERVA (test code = 11:42 AM) Coronavirus (COVID-19) MINERVA) [place] 573671-09-24 16:42:00 Test Item Value Reference Range Interpretation Comments Coronavirus (COVID-19) Not Detected (10/30/20 MINERVA (test code = 11:42 AM) Coronavirus (COVID-19) MINERVA) [place] 573671-09-24 16:42:00 Test Item Value Reference Range Interpretation Comments Coronavirus (COVID-19) Not Detected (10/30/20 MINERVA (test code = 11:42 AM) Coronavirus (COVID-19) MINERVA) [facility]ApjjyddEMTXQGTCCX6558-63-95 16:42:00 Test Item Value Reference Range Interpretation Comments Coronavirus (COVID-19) Not Detected (10/30/20 MINERVA (test code = 11:42 AM) Coronavirus (COVID-19) MINERVA) [facility] [id number] 16:41:00 Test Item Value Reference Range Interpretation Comments Total CK (test code = Total CK) 189 12-191 [facility] TGUMRHO4469-85-63 16:41:00 Test Item Value Reference Range Interpretation Comments Troponin-I (test code no gt See_Comment [Auto mated message] The = Troponin-I) system which g enerated this result transmit tae reference range : <=0.40. The reference r hermes was not used to interpr et this result as ludmila l/abnormal. [facility] CenterWHOOP [id number] 16:41:00 Test Item Value Reference Range Interpretation Comments Glucose Lvl (test code = Glucose Lvl) 141 70-99 [facility]WHO[facility] [id number] 16:41:00 Test Item Value Reference Range Interpretation Comments BUN (test code = BUN) 6 7-22 [facility]2021-09-24 16:41:00 Test Item Value Reference Range Interpretation Comments Creatinine Lvl (test code = Creatinine 0.80 0.50-1.40 Lvl) [facility]2021-09-24 16:41:00 Test Item Value Reference Range Interpretation Comments Sodium Lvl (test code = Sodium Lvl) 144 135-145 [facility]2021-09-24 16:41:00 Test Item Value Reference Range Interpretation Comments Potassium Lvl (test code = Potassium 2.9 3.5-5.1 Lvl) [facility]2021-09-24 16:41:00 Test Item Value Reference Range Interpretation Comments Chloride Lvl (test code = Chloride Lvl) 106 95-109 [facility]2021-09-24 16:41:00 Test Item Value Reference Range Interpretation Comments CO2 (test code = CO2) 25 24-32 [facility]2021-09-24 16:41:00 Test Item Value Reference Range Interpretation Comments AGAP (test code = AGAP) 15.9 10.0-20.0 [place] 735341-09-24 16:41:00 Test Item Value Reference Range Interpretation Comments Calcium Lvl (test code = Calcium Lvl) 8.7 8.5-10.5 [place] 735341-09-24 16:41:00 Test Item Value Reference Range Interpretation Comments eGFR (test code = eGFR) 115 [place] 735341-09-24 16:41:00 Test Item Value Reference Range Interpretation Comments Lipase Lvl (test code = Lipase Lvl) 42 73-393 [place] 735341-09-24 16:41:00 Test Item Value Reference Range Interpretation Comments Total Protein (test code = Total 9.1 6.4-8.4 Protein) [place] 735341-09-24 16:41:00 Test Item Value Reference Range Interpretation Comments Albumin Lvl (test code = Albumin Lvl) 4.0 3.5-5.0 [place] 735341-09-24 16:41:00 Test Item Value Reference Range Interpretation Comments ALT (test code = ALT) 237 See_Comment [Auto mated message] The system which ge nerated this result transmit tae reference range : <=65. The reference range was not used to interpr et this result as ludmila l/abnormal. [place] 735341-09-24 16:41:00 Test Item Value Reference Range Interpretation Comments AST (test code = AST) 191 See_Comment [Auto mated message] The system which ge nerated this result transmit tae reference range : <=37. The reference range was not used to interpr et this result as ludmila l/abnormal. [place] 735341-09-24 16:41:00 Test Item Value Reference Range Interpretation Comments Alk Phos (test code = Alk Phos) 203 39-136 [place] [address]-09-24 16:41:00 Test Item Value Reference Range Interpretation Comments Bili Total (test code = Bili Total) 0.8 0.2-1.3 [place] 735341-09-24 16:41:00 Test Item Value Reference Range Interpretation Comments Bili Direct (test code 0.3 See_Comment [Aut omated message] The = Bili Direct) system which generated this result tra nsmitted reference range : <=0.3. The reference r hermes was not used to int erpret this result as ludmila l/abnormal. [place] 735341-09-24 16:41:00 Test Item Value Reference Range Interpretation Comments Bili Indirect (test 0.5 See_Comment [Automa tae message] The code = Bili Indirect) system which generated this result tra nsmitted reference range : <=1.0. The reference r hermes was not used to int erpret this result as normal/abnormal . [place] 735341-09-24 16:41:00 Test Item Value Reference Range Interpretation Comments Globulin (test code = Globulin) 5.1 2.7-4.2 [place] 735341-09-24 16:41:00 Test Item Value Reference Range Interpretation Comments A/G Ratio (test code = A/G Ratio) 0.8 1 0.7-1.6 [place] 735341-09-24 16:41:00 Test Item Value Reference Range Interpretation Comments Magnesium Lvl (test code = Magnesium 2.2 1.8-2.4 Lvl) [place] 044741-09-24 16:41:00 Test Item Value Reference Range Interpretation Comments WBC (test code = WBC) 4.3 3.7-10.4 [place] 044741-09-24 16:41:00 Test Item Value Reference Range Interpretation Comments RBC (test code = RBC) 4.32 4.70-6.10 [place] 044741-09-24 16:41:00 Test Item Value Reference Range Interpretation Comments Hgb (test code = Hgb) 13.5 14.0-18.0 [place] 044741-09-24 16:41:00 Test Item Value Reference Range Interpretation Comments Hct (test code = Hct) 40.3 42.0-54.0 [place] 044741-09-24 16:41:00 Test Item Value Reference Range Interpretation Comments MCV (test code = MCV) 93.2 80.0-94.0 [place] 044741-09-24 16:41:00 Test Item Value Reference Range Interpretation Comments MCH (test code = MCH) 31.3 pg 27.0-31.0 [place] 044741-09-24 16:41:00 Test Item Value Reference Range Interpretation Comments MCHC (test code = MCHC) 33.6 32.0-36.0 [facility] CenterTjpasaqWAKQFMGBEZ1515-33-12 16:41:00 Test Item Value Reference Range Interpretation Comments RDW (test code = RDW) 15.9 11.5-14.5 [place] 044741-09-24 16:41:00 Test Item Value Reference Range Interpretation Comments Platelet (test code = Platelet) 390 133-450 [facility] CenterTlexppnRZVCFQASEW5127-54-09 16:41:00 Test Item Value Reference Range Interpretation Comments MPV (test code = MPV) 7.2 7.4-10.4 [place] 044741-09-24 16:41:00 Test Item Value Reference Range Interpretation Comments Segs (test code = Segs) 36.0 45.0-75.0 [place] 044741-09-24 16:41:00 Test Item Value Reference Range Interpretation Comments Lymphocytes (test code = Lymphocytes) 58.1 20.0-40.0 [place] 044741-09-24 16:41:00 Test Item Value Reference Range Interpretation Comments Monocytes (test code = Monocytes) 4.9 2.0-12.0 [facility] CenterTxwkqlnNSKYZMSVYO5960-37-77 16:41:00 Test Item Value Reference Range Interpretation Comments Eosinophils (test code = 0.0 See_Comment [A utomated message] The Eosinophils) system which ge nerated this result tra nsmitted reference range : <=4.0. The reference r hermes was not used to int erpret this result as normal/abnormal . [facility] CenterQajhwyzAJMWLQSLOW4313-22-61 16:41:00 Test Item Value Reference Range Interpretation Comments Basophils (test code = 1.0 See_Comment [Aut omated message] The Basophils) system which ge nerated this result tra nsmitted reference range : <=1.0. The reference r hermes was not used to int erpret this result as normal/abnormal . [place] 044741-09-24 16:41:00 Test Item Value Reference Range Interpretation Comments Neutrophils # (test code = Neutrophils 1.6 1.5-8.1 #) [facility] CenterUwocfqkWYHPQOPFDL6749-73-27 16:41:00 Test Item Value Reference Range Interpretation Comments Lymphocytes # (test code = Lymphocytes 2.5 1.0-5.5 #) [facility]KzbvjpaABSUULNMXM8434-94-43 16:41:00 Test Item Value Reference Range Interpretation Comments Monocytes # (test code 0.2 See_Comment [Aut omated message] The = Monocytes #) system which generated this result tra nsmitted reference range : <=0.8. The reference r hermes was not used to int erpret this result as normal/abnormal . [facility] CenterJdwcugyKXEMZZOAVQ6010-82-35 16:41:00 Test Item Value Reference Range Interpretation Comments Eosinophils # (test code 0.0 See_Comment [A utomated message] The = Eosinophils #) system whic h generated this result tra nsmitted reference range : <=0.5. The reference r hermes was not used to int erpret this result as normal/abnormal . [facility] CenterAjwpdhpSHLIBPHQIZ7908-10-24 16:41:00 Test Item Value Reference Range Interpretation Comments Basophils # (test code 0.0 See_Comment [Aut omated message] The = Basophils #) system which generated this result tra nsmitted reference range : <=0.2. The reference r hermes was not used to int erpret this result as normal/abnormal . [facility] CenterNkbyiykDPLNFKOTLP7251-31-36 16:41:00 Test Item Value Reference Range Interpretation Comments Ethanol Lvl (test code = Ethanol Lvl) [facility]GzgblsnIOIWLRELEO5455-84-47 16:41:00 Test Item Value Reference Range Interpretation Comments Etoh (%) (test code = Etoh (%)) 0.538 [facility]lakeQtqmgwsFDWHFRKBAQ1004-60-77 16:41:00 Test Item Value Reference Range Interpretation Comments Acetaminoph Lvl (test code (10/30/20 11:41 AM) 10-20 = Acetaminoph Lvl) [facility] CenterTljllldOKZFGJFUTH1485-19-91 16:41:00 Test Item Value Reference Range Interpretation Comments Salicylate Lvl (test no gt See_Comment [Autom ated message] The code = Salicylate Lvl) syste m which generated this result tra nsmitted reference range : <=30.0. The reference r hermes was not used to int erpret this result as normal/abnormal . [facility] CenterCARDIAC QUDTRNF1357-42-66 16:41:00 Test Item Value Reference Range Interpretation Comments Total CK (test code = Total CK) 189 12-191 [facility] CenterCARDIAC QEXKKUH5237-08-27 16:41:00 Test Item Value Reference Range Interpretation Comments Troponin-I (test code no gt See_Comment [Auto mated message] The = Troponin-I) system which g enerated this result transmit tae reference range : <=0.40. The reference r hermes was not used to interpr et this result as ludmila l/abnormal. [facility] CenterAppc[facility] Inc [id number] 16:41:00 Test Item Value Reference Range Interpretation Comments Glucose Lvl (test code = Glucose Lvl) 141 70-99 [facility]2021-09-24 16:41:00 Test Item Value Reference Range Interpretation Comments BUN (test code = BUN) 6 7-22 [facility]2021-09-24 16:41:00 Test Item Value Reference Range Interpretation Comments Creatinine Lvl (test code = Creatinine 0.80 0.50-1.40 Lvl) [facility]2021-09-24 16:41:00 Test Item Value Reference Range Interpretation Comments Sodium Lvl (test code = Sodium Lvl) 144 135-145 [facility] CenterWHOOP [id number] 16:41:00 Test Item Value Reference Range Interpretation Comments Potassium Lvl (test code = Potassium 2.9 3.5-5.1 Lvl) [facility]2021-09-24 16:41:00 Test Item Value Reference Range Interpretation Comments Chloride Lvl (test code = Chloride Lvl) 106 95-109 [facility] CenterWHOOP [id number] 16:41:00 Test Item Value Reference Range Interpretation Comments CO2 (test code = CO2) 25 24-32 [facility]2021-09-24 16:41:00 Test Item Value Reference Range Interpretation Comments AGAP (test code = AGAP) 15.9 10.0-20.0 [facility]2021-09-24 16:41:00 Test Item Value Reference Range Interpretation Comments Calcium Lvl (test code = Calcium Lvl) 8.7 8.5-10.5 [facility]2021-09-24 16:41:00 Test Item Value Reference Range Interpretation Comments eGFR (test code = eGFR) 115 [facility]2021-09-24 16:41:00 Test Item Value Reference Range Interpretation Comments Lipase Lvl (test code = Lipase Lvl) 42 73-393 [place] 735341-09-24 16:41:00 Test Item Value Reference Range Interpretation Comments Total Protein (test code = Total 9.1 6.4-8.4 Protein) [place] [address]-09-24 16:41:00 Test Item Value Reference Range Interpretation Comments Albumin Lvl (test code = Albumin Lvl) 4.0 3.5-5.0 [place] 735341-09-24 16:41:00 Test Item Value Reference Range Interpretation Comments ALT (test code = ALT) 237 See_Comment [Auto mated message] The system which ge nerated this result transmit tae reference range : <=65. The reference range was not used to interpr et this result as ludmila l/abnormal. [place] [address]-09-24 16:41:00 Test Item Value Reference Range Interpretation Comments AST (test code = AST) 191 See_Comment [Auto mated message] The system which ge nerated this result transmit tae reference range : <=37. The reference range was not used to interpr et this result as ludmila l/abnormal. [place] 735341-09-24 16:41:00 Test Item Value Reference Range Interpretation Comments Alk Phos (test code = Alk Phos) 203 39-136 [place] 735341-09-24 16:41:00 Test Item Value Reference Range Interpretation Comments Bili Total (test code = Bili Total) 0.8 0.2-1.3 [place] [address]-09-24 16:41:00 Test Item Value Reference Range Interpretation Comments Bili Direct (test code 0.3 See_Comment [Aut omated message] The = Bili Direct) system which generated this result tra nsmitted reference range : <=0.3. The reference r hermes was not used to int erpret this result as ludmila l/abnormal. [place] [address]-09-24 16:41:00 Test Item Value Reference Range Interpretation Comments Bili Indirect (test 0.5 See_Comment [Automa tae message] The code = Bili Indirect) system which generated this result tra nsmitted reference range : <=1.0. The reference r hermes was not used to int erpret this result as normal/abnormal . [facility]2021-09-24 16:41:00 Test Item Value Reference Range Interpretation Comments Globulin (test code = Globulin) 5.1 2.7-4.2 [facility]2021-09-24 16:41:00 Test Item Value Reference Range Interpretation Comments A/G Ratio (test code = A/G Ratio) 0.8 1 0.7-1.6 [facility]2021-09-24 16:41:00 Test Item Value Reference Range Interpretation Comments Magnesium Lvl (test code = Magnesium 2.2 1.8-2.4 Lvl) [facility] CenterXfixsraCQDFESDDCU2660-06-66 16:41:00 Test Item Value Reference Range Interpretation Comments WBC (test code = WBC) 4.3 3.7-10.4 [place] 044741-09-24 16:41:00 Test Item Value Reference Range Interpretation Comments RBC (test code = RBC) 4.32 4.70-6.10 [place] 044741-09-24 16:41:00 Test Item Value Reference Range Interpretation Comments Hgb (test code = Hgb) 13.5 14.0-18.0 [place] 044741-09-24 16:41:00 Test Item Value Reference Range Interpretation Comments Hct (test code = Hct) 40.3 42.0-54.0 [place] 044741-09-24 16:41:00 Test Item Value Reference Range Interpretation Comments MCV (test code = MCV) 93.2 80.0-94.0 [place] 044741-09-24 16:41:00 Test Item Value Reference Range Interpretation Comments MCH (test code = MCH) 31.3 pg 27.0-31.0 [facility] CenterOozkpbhFSKLXBZZJH0394-07-27 16:41:00 Test Item Value Reference Range Interpretation Comments MCHC (test code = MCHC) 33.6 32.0-36.0 [facility] CenterDrqgnprHXIYDQWMWW4612-41-00 16:41:00 Test Item Value Reference Range Interpretation Comments RDW (test code = RDW) 15.9 11.5-14.5 [place] 044741-09-24 16:41:00 Test Item Value Reference Range Interpretation Comments Platelet (test code = Platelet) 390 133-450 [facility] CenterVsyartpSHSZVJRNBA0146-15-29 16:41:00 Test Item Value Reference Range Interpretation Comments MPV (test code = MPV) 7.2 7.4-10.4 [facility] CenterPyokmqsYVORBOMWAK0398-49-78 16:41:00 Test Item Value Reference Range Interpretation Comments Segs (test code = Segs) 36.0 45.0-75.0 [facility] CenterMxtdisfFDGNURQPMQ6813-72-21 16:41:00 Test Item Value Reference Range Interpretation Comments Lymphocytes (test code = Lymphocytes) 58.1 20.0-40.0 [facility] CenterXvnhgbpXCYDJBWLRW6968-92-53 16:41:00 Test Item Value Reference Range Interpretation Comments Monocytes (test code = Monocytes) 4.9 2.0-12.0 [facility] CenterJddmlshVVPOPMDOIQ6462-09-68 16:41:00 Test Item Value Reference Range Interpretation Comments Eosinophils (test code = 0.0 See_Comment [A utomated message] The Eosinophils) system which ge nerated this result tra nsmitted reference range : <=4.0. The reference r hermes was not used to int erpret this result as normal/abnormal . [facility] CenterUegoiisZHAGRUKBYH3421-22-34 16:41:00 Test Item Value Reference Range Interpretation Comments Basophils (test code = 1.0 See_Comment [Aut omated message] The Basophils) system which ge nerated this result tra nsmitted reference range : <=1.0. The reference r hermes was not used to int erpret this result as normal/abnormal . [facility] CenterXqnavmuTHQCUBQNAB7659-25-49 16:41:00 Test Item Value Reference Range Interpretation Comments Neutrophils # (test code = Neutrophils 1.6 1.5-8.1 #) [facility] CenterDiacbyiWGIEIBLCXI3961-72-61 16:41:00 Test Item Value Reference Range Interpretation Comments Lymphocytes # (test code = Lymphocytes 2.5 1.0-5.5 #) [facility] CenterGyqybphEOXLPTVPCW4274-16-12 16:41:00 Test Item Value Reference Range Interpretation Comments Monocytes # (test code 0.2 See_Comment [Aut omated message] The = Monocytes #) system which generated this result tra nsmitted reference range : <=0.8. The reference r hermes was not used to int erpret this result as normal/abnormal . [place] [address]-09-24 16:41:00 Test Item Value Reference Range Interpretation Comments Eosinophils # (test code 0.0 See_Comment [A utomated message] The = Eosinophils #) system whic h generated this result tra nsmitted reference range : <=0.5. The reference r hermes was not used to int erpret this result as normal/abnormal . [facility] HospitalYhitohbXINPCKDZKE5905-56-14 16:41:00 Test Item Value Reference Range Interpretation Comments Basophils # (test code 0.0 See_Comment [Aut omated message] The = Basophils #) system which generated this result tra nsmitted reference range : <=0.2. The reference r hermes was not used to int erpret this result as normal/abnormal . [facility] CenterSjrwzzcWUCBKNXEFX3224-23-32 16:41:00 Test Item Value Reference Range Interpretation Comments Ethanol Lvl (test code = Ethanol Lvl) 538 [facility]lakeFnliqeiGFLQFEBDEF5728-31-44 16:41:00 Test Item Value Reference Range Interpretation Comments Etoh (%) (test code = Etoh (%)) 0.538 [facility] CenterHhgawtxUIXOWKHDRA0154-18-66 16:41:00 Test Item Value Reference Range Interpretation Comments Acetaminoph Lvl (test code (10/30/20 11:41 AM) 10-20 = Acetaminoph Lvl) [facility] NorthwestMavvocqEDMKYMDDCG3710-28-94 16:41:00 Test Item Value Reference Range Interpretation Comments Salicylate Lvl (test no gt See_Comment [Autom ated message] The code = Salicylate Lvl) syste m which generated this result tra nsmitted reference range : <=30.0. The reference r herems was not used to int erpret this result as normal/abnormal . [facility] CenterAmigoCATCARDIAC MDWURYJ1165-01-13 16:41:00 Test Item Value Reference Range Interpretation Comments Total CK (test code = Total CK) 189 12-191 [facility] CenterIntuiLabBAPTIST HEALTH PADUCAH XONSCCL1564-12-30 16:41:00 Test Item Value Reference Range Interpretation Comments Troponin-I (test code no gt See_Comment [Auto mated message] The = Troponin-I) system which g enerated this result transmit tae reference range : <=0.40. The reference r hermes was not used to interpr et this result as ludmila l/abnormal. [facility]2021-09-24 16:41:00 Test Item Value Reference Range Interpretation Comments Glucose Lvl (test code = Glucose Lvl) 141 70-99 [facility]2021-09-24 16:41:00 Test Item Value Reference Range Interpretation Comments BUN (test code = BUN) 6 7-22 [place] 735341-09-24 16:41:00 Test Item Value Reference Range Interpretation Comments Creatinine Lvl (test code = Creatinine 0.80 0.50-1.40 Lvl) [place] 735341-09-24 16:41:00 Test Item Value Reference Range Interpretation Comments Sodium Lvl (test code = Sodium Lvl) 144 135-145 [place] 735341-09-24 16:41:00 Test Item Value Reference Range Interpretation Comments Potassium Lvl (test code = Potassium 2.9 3.5-5.1 Lvl) [place] 735341-09-24 16:41:00 Test Item Value Reference Range Interpretation Comments Chloride Lvl (test code = Chloride Lvl) 106 95-109 [place] 735341-09-24 16:41:00 Test Item Value Reference Range Interpretation Comments CO2 (test code = CO2) 25 24-32 [place] 735341-09-24 16:41:00 Test Item Value Reference Range Interpretation Comments AGAP (test code = AGAP) 15.9 10.0-20.0 [place] 735341-09-24 16:41:00 Test Item Value Reference Range Interpretation Comments Calcium Lvl (test code = Calcium Lvl) 8.7 8.5-10.5 [place] 735341-09-24 16:41:00 Test Item Value Reference Range Interpretation Comments eGFR (test code = eGFR) 115 [place] 735341-09-24 16:41:00 Test Item Value Reference Range Interpretation Comments Lipase Lvl (test code = Lipase Lvl) 42 73-393 [place] 735341-09-24 16:41:00 Test Item Value Reference Range Interpretation Comments Total Protein (test code = Total 9.1 6.4-8.4 Protein) [facility]2021-09-24 16:41:00 Test Item Value Reference Range Interpretation Comments Albumin Lvl (test code = Albumin Lvl) 4.0 3.5-5.0 [facility] [id number] 16:41:00 Test Item Value Reference Range Interpretation Comments ALT (test code = ALT) 237 See_Comment [Auto mated message] The system which ge nerated this result transmit tea reference range : <=65. The reference range was not used to interpr et this result as ludmila l/abnormal. [facility] [id number] 16:41:00 Test Item Value Reference Range Interpretation Comments AST (test code = AST) 191 See_Comment [Auto mated message] The system which ge nerated this result transmit tae reference range : <=37. The reference range was not used to interpr et this result as ludmila l/abnormal. [facility] [id number] 16:41:00 Test Item Value Reference Range Interpretation Comments Alk Phos (test code = Alk Phos) 203 39-136 [facility] [id number] 16:41:00 Test Item Value Reference Range Interpretation Comments Bili Total (test code = Bili Total) 0.8 0.2-1.3 [facility] [id number] 16:41:00 Test Item Value Reference Range Interpretation Comments Bili Direct (test code 0.3 See_Comment [Aut omated message] The = Bili Direct) system which generated this result tra nsmitted reference range : <=0.3. The reference r hermes was not used to int erpret this result as ludmila l/abnormal. [facility] [id number] 16:41:00 Test Item Value Reference Range Interpretation Comments Bili Indirect (test 0.5 See_Comment [Automa tae message] The code = Bili Indirect) system which generated this result tra nsmitted reference range : <=1.0. The reference r hermes was not used to int erpret this result as normal/abnormal . [facility] [id number] 16:41:00 Test Item Value Reference Range Interpretation Comments Globulin (test code = Globulin) 5.1 2.7-4.2 [facility] [id number] 16:41:00 Test Item Value Reference Range Interpretation Comments A/G Ratio (test code = A/G Ratio) 0.8 1 0.7-1.6 [facility]2021-09-24 16:41:00 Test Item Value Reference Range Interpretation Comments Magnesium Lvl (test code = Magnesium 2.2 1.8-2.4 Lvl) [facility]DsnewyjTSRBSDUETX2556-13-32 16:41:00 Test Item Value Reference Range Interpretation Comments WBC (test code = WBC) 4.3 3.7-10.4 [facility] CenterSsfalzyUUGELKYFHE2901-02-73 16:41:00 Test Item Value Reference Range Interpretation Comments RBC (test code = RBC) 4.32 4.70-6.10 [facility] CenterZakbqubNKBQJRKZCI7155-07-22 16:41:00 Test Item Value Reference Range Interpretation Comments Hgb (test code = Hgb) 13.5 14.0-18.0 [facility] CenterHxiefccNFJSKSEJYU4197-19-03 16:41:00 Test Item Value Reference Range Interpretation Comments Hct (test code = Hct) 40.3 42.0-54.0 [facility] CenterCckqpoqDKFJXUSPUD4207-18-07 16:41:00 Test Item Value Reference Range Interpretation Comments MCV (test code = MCV) 93.2 80.0-94.0 [facility] CenterMjfqxoyVOKEWQNYOP9407-58-94 16:41:00 Test Item Value Reference Range Interpretation Comments MCH (test code = MCH) 31.3 pg 27.0-31.0 [facility] CenterQbbppxxMGKOLJOTSU5961-81-95 16:41:00 Test Item Value Reference Range Interpretation Comments MCHC (test code = MCHC) 33.6 32.0-36.0 [facility] CenterJltdovjXJSKJZIXRX9521-34-27 16:41:00 Test Item Value Reference Range Interpretation Comments RDW (test code = RDW) 15.9 11.5-14.5 [facility] CenterUsoooepFXIPNIQKFJ6781-94-41 16:41:00 Test Item Value Reference Range Interpretation Comments Platelet (test code = Platelet) 390 133-450 [facility] CenterWoqddqaDLSQOJOFHL4264-69-20 16:41:00 Test Item Value Reference Range Interpretation Comments MPV (test code = MPV) 7.2 7.4-10.4 [facility] CenterWuctlwqMHCUKFMFSF0886-42-51 16:41:00 Test Item Value Reference Range Interpretation Comments Segs (test code = Segs) 36.0 45.0-75.0 [place] 044741-09-24 16:41:00 Test Item Value Reference Range Interpretation Comments Lymphocytes (test code = Lymphocytes) 58.1 20.0-40.0 [place] 044741-09-24 16:41:00 Test Item Value Reference Range Interpretation Comments Monocytes (test code = Monocytes) 4.9 2.0-12.0 [place] 044741-09-24 16:41:00 Test Item Value Reference Range Interpretation Comments Eosinophils (test code = 0.0 See_Comment [A utomated message] The Eosinophils) system which ge nerated this result tra nsmitted reference range : <=4.0. The reference r hermes was not used to int erpret this result as normal/abnormal . [place] 044741-09-24 16:41:00 Test Item Value Reference Range Interpretation Comments Basophils (test code = 1.0 See_Comment [Aut omated message] The Basophils) system which ge nerated this result tra nsmitted reference range : <=1.0. The reference r hermes was not used to int erpret this result as normal/abnormal . [facility] CenterHuozkqxWZXLFRJRIB9413-83-30 16:41:00 Test Item Value Reference Range Interpretation Comments Neutrophils # (test code = Neutrophils 1.6 1.5-8.1 #) [facility] CenterXaquytbEOTQZAIVVR9508-81-57 16:41:00 Test Item Value Reference Range Interpretation Comments Lymphocytes # (test code = Lymphocytes 2.5 1.0-5.5 #) [facility] CenterDkdvapsXJZKTJAUOO1020-32-00 16:41:00 Test Item Value Reference Range Interpretation Comments Monocytes # (test code 0.2 See_Comment [Aut omated message] The = Monocytes #) system which generated this result tra nsmitted reference range : <=0.8. The reference r hermes was not used to int erpret this result as normal/abnormal . [place] 044741-09-24 16:41:00 Test Item Value Reference Range Interpretation Comments Eosinophils # (test code 0.0 See_Comment [A utomated message] The = Eosinophils #) system whic h generated this result tra nsmitted reference range : <=0.5. The reference r hermes was not used to int erpret this result as normal/abnormal . [facility] CenterKxtqspbYMNQWPEIPN8220-12-24 16:41:00 Test Item Value Reference Range Interpretation Comments Basophils # (test code 0.0 See_Comment [Aut omated message] The = Basophils #) system which generated this result tra nsmitted reference range : <=0.2. The reference r hermes was not used to int erpret this result as normal/abnormal . [facility]ItwhpprLHNECAYMJH9255-01-89 16:41:00 Test Item Value Reference Range Interpretation Comments Ethanol Lvl (test code = Ethanol Lvl) 538 [facility]lakeKmtpzlhXITMLDALUT0279-12-97 16:41:00 Test Item Value Reference Range Interpretation Comments Etoh (%) (test code = Etoh (%)) 0.538 [facility]VbtqtvdPAYMGVFAAA1508-78-71 16:41:00 Test Item Value Reference Range Interpretation Comments Acetaminoph Lvl (test code (10/30/20 11:41 AM) 10-20 = Acetaminoph Lvl) [facility]aleLvjrwucANMQTKTXII4595-94-27 16:41:00 Test Item Value Reference Range Interpretation Comments Salicylate Lvl (test no gt See_Comment [Autom ated message] The code = Salicylate Lvl) syste m which generated this result tra nsmitted reference range : <=30.0. The reference r hermes was not used to int erpret this result as normal/abnormal . [facility] CenterCARC-narioAC [id number] 16:41:00 Test Item Value Reference Range Interpretation Comments Total CK (test code = Total CK) 189 12-191 [facility] CenterElephant.is MJYZKWO1863-32-54 16:41:00 Test Item Value Reference Range Interpretation Comments Troponin-I (test code no gt See_Comment [Auto mated message] The = Troponin-I) system which g enerated this result transmit tae reference range : <=0.40. The reference r hermes was not used to interpr et this result as ludmila l/abnormal. [facility] [employer] [id number] 16:41:00 Test Item Value Reference Range Interpretation Comments Glucose Lvl (test code = Glucose Lvl) 141 70-99 [facility] [employer] [id number] 16:41:00 Test Item Value Reference Range Interpretation Comments BUN (test code = BUN) 6 7-22 [place] 735341-09-24 16:41:00 Test Item Value Reference Range Interpretation Comments Creatinine Lvl (test code = Creatinine 0.80 0.50-1.40 Lvl) [place] 735341-09-24 16:41:00 Test Item Value Reference Range Interpretation Comments Sodium Lvl (test code = Sodium Lvl) 144 135-145 [place] 735341-09-24 16:41:00 Test Item Value Reference Range Interpretation Comments Potassium Lvl (test code = Potassium 2.9 3.5-5.1 Lvl) [place] 735341-09-24 16:41:00 Test Item Value Reference Range Interpretation Comments Chloride Lvl (test code = Chloride Lvl) 106 95-109 [place] 735341-09-24 16:41:00 Test Item Value Reference Range Interpretation Comments CO2 (test code = CO2) 25 24-32 [place] 735341-09-24 16:41:00 Test Item Value Reference Range Interpretation Comments AGAP (test code = AGAP) 15.9 10.0-20.0 [place] 735341-09-24 16:41:00 Test Item Value Reference Range Interpretation Comments Calcium Lvl (test code = Calcium Lvl) 8.7 8.5-10.5 [place] 735341-09-24 16:41:00 Test Item Value Reference Range Interpretation Comments eGFR (test code = eGFR) 115 [place] 735341-09-24 16:41:00 Test Item Value Reference Range Interpretation Comments Lipase Lvl (test code = Lipase Lvl) 42 73-393 [place] 735341-09-24 16:41:00 Test Item Value Reference Range Interpretation Comments Total Protein (test code = Total 9.1 6.4-8.4 Protein) [place] 735341-09-24 16:41:00 Test Item Value Reference Range Interpretation Comments Albumin Lvl (test code = Albumin Lvl) 4.0 3.5-5.0 [place] 735341-09-24 16:41:00 Test Item Value Reference Range Interpretation Comments ALT (test code = ALT) 237 See_Comment [Auto mated message] The system which ge nerated this result transmit tae reference range : <=65. The reference range was not used to interpr et this result as ludmila l/abnormal. [facility]2021-09-24 16:41:00 Test Item Value Reference Range Interpretation Comments AST (test code = AST) 191 See_Comment [Auto mated message] The system which ge nerated this result transmit tae reference range : <=37. The reference range was not used to interpr et this result as ludmila l/abnormal. [place] 735341-09-24 16:41:00 Test Item Value Reference Range Interpretation Comments Alk Phos (test code = Alk Phos) 203 39-136 [place] 735341-09-24 16:41:00 Test Item Value Reference Range Interpretation Comments Bili Total (test code = Bili Total) 0.8 0.2-1.3 [place] 735341-09-24 16:41:00 Test Item Value Reference Range Interpretation Comments Bili Direct (test code 0.3 See_Comment [Aut omated message] The = Bili Direct) system which generated this result tra nsmitted reference range : <=0.3. The reference r hermes was not used to int erpret this result as ludmila l/abnormal. [facility]2021-09-24 16:41:00 Test Item Value Reference Range Interpretation Comments Bili Indirect (test 0.5 See_Comment [Automa tae message] The code = Bili Indirect) system which generated this result tra nsmitted reference range : <=1.0. The reference r hermes was not used to int erpret this result as normal/abnormal . [place] 735341-09-24 16:41:00 Test Item Value Reference Range Interpretation Comments Globulin (test code = Globulin) 5.1 2.7-4.2 [place] 735341-09-24 16:41:00 Test Item Value Reference Range Interpretation Comments A/G Ratio (test code = A/G Ratio) 0.8 1 0.7-1.6 [place] 735341-09-24 16:41:00 Test Item Value Reference Range Interpretation Comments Magnesium Lvl (test code = Magnesium 2.2 1.8-2.4 Lvl) [facility] CenterYfmnjipWZNRLNRIGM8043-03-62 16:41:00 Test Item Value Reference Range Interpretation Comments WBC (test code = WBC) 4.3 3.7-10.4 [facility] CenterPhthqydUSORODODEE9103-89-65 16:41:00 Test Item Value Reference Range Interpretation Comments RBC (test code = RBC) 4.32 4.70-6.10 [facility] CenterPiwpwioOLOKNABRND9686-97-06 16:41:00 Test Item Value Reference Range Interpretation Comments Hgb (test code = Hgb) 13.5 14.0-18.0 [facility] CenterAecydnoMBNTRYAKNI3955-10-83 16:41:00 Test Item Value Reference Range Interpretation Comments Hct (test code = Hct) 40.3 42.0-54.0 [facility] CenterRxlllttUOFVXLBQNU8062-74-82 16:41:00 Test Item Value Reference Range Interpretation Comments MCV (test code = MCV) 93.2 80.0-94.0 [facility] CenterOihopgyYHOSKQVEFJ1337-61-29 16:41:00 Test Item Value Reference Range Interpretation Comments MCH (test code = MCH) 31.3 pg 27.0-31.0 [facility] CenterNbpjofqZIMZAHOQZG4812-81-88 16:41:00 Test Item Value Reference Range Interpretation Comments MCHC (test code = MCHC) 33.6 32.0-36.0 [facility] CenterKlgluboOQVZHYHEYP8568-33-84 16:41:00 Test Item Value Reference Range Interpretation Comments RDW (test code = RDW) 15.9 11.5-14.5 [facility] CenterTocuyysVVFPZIYJEG8428-26-96 16:41:00 Test Item Value Reference Range Interpretation Comments Platelet (test code = Platelet) 390 133-450 [facility] CenterOpfzqvxCWBLDCIHVB6318-74-44 16:41:00 Test Item Value Reference Range Interpretation Comments MPV (test code = MPV) 7.2 7.4-10.4 [facility] CenterTogroqbUEKBAWFZVY8896-61-11 16:41:00 Test Item Value Reference Range Interpretation Comments Segs (test code = Segs) 36.0 45.0-75.0 [facility] CenterAkazknaGEVVOPWSMM7459-93-26 16:41:00 Test Item Value Reference Range Interpretation Comments Lymphocytes (test code = Lymphocytes) 58.1 20.0-40.0 [facility] CenterAcvroyaAZSRFCVBSN0813-23-44 16:41:00 Test Item Value Reference Range Interpretation Comments Monocytes (test code = Monocytes) 4.9 2.0-12.0 [facility] CenterAlusxdxSBDTVGEZRY4993-44-43 16:41:00 Test Item Value Reference Range Interpretation Comments Eosinophils (test code = 0.0 See_Comment [A utomated message] The Eosinophils) system which ge nerated this result tra nsmitted reference range : <=4.0. The reference r hermes was not used to int erpret this result as normal/abnormal . [facility] CenterEztppohLZTGSWXJSE6598-32-76 16:41:00 Test Item Value Reference Range Interpretation Comments Basophils (test code = 1.0 See_Comment [Aut omated message] The Basophils) system which ge nerated this result tra nsmitted reference range : <=1.0. The reference r hermes was not used to int erpret this result as normal/abnormal . [facility] CenterJllsanaSNLWEPYZFL9706-79-23 16:41:00 Test Item Value Reference Range Interpretation Comments Neutrophils # (test code = Neutrophils 1.6 1.5-8.1 #) [facility] CenterVurnxgnSSSPYJPJRC3996-16-79 16:41:00 Test Item Value Reference Range Interpretation Comments Lymphocytes # (test code = Lymphocytes 2.5 1.0-5.5 #) [facility] CenterCowldvjVMEIMYVIMU0145-52-79 16:41:00 Test Item Value Reference Range Interpretation Comments Monocytes # (test code 0.2 See_Comment [Aut omated message] The = Monocytes #) system which generated this result tra nsmitted reference range : <=0.8. The reference r hermes was not used to int erpret this result as normal/abnormal . [facility] CenterZkizqqsECIGMMASNZ1170-85-67 16:41:00 Test Item Value Reference Range Interpretation Comments Eosinophils # (test code 0.0 See_Comment [A utomated message] The = Eosinophils #) system [facility] generated this result tra nsmitted reference range : <=0.5. The reference r hermes was not used to int erpret this result as normal/abnormal . [facility] CenterSyodzbvOHKYUMSOUA9647-34-37 16:41:00 Test Item Value Reference Range Interpretation Comments Basophils # (test code 0.0 See_Comment [Aut omated message] The = Basophils #) system which generated this result tra nsmitted reference range : <=0.2. The reference r hermes was not used to int erpret this result as normal/abnormal . [facility]aleZxybhbwWPGTSWFBVO6626-56-75 16:41:00 Test Item Value Reference Range Interpretation Comments Ethanol Lvl (test code = Ethanol Lvl) 538 [facility] NorthwestFnlvsicLMLWEXMFTI4093-49-18 16:41:00 Test Item Value Reference Range Interpretation Comments Etoh (%) (test code = Etoh (%)) 0.538 [place] [id number] 16:41:00 Test Item Value Reference Range Interpretation Comments Acetaminoph Lvl (test code (10/30/20 11:41 AM) 10-20 = Acetaminoph Lvl) [facility] NorthwestFzurxeqUWCKWKXCPA9714-43-37 16:41:00 Test Item Value Reference Range Interpretation Comments Salicylate Lvl (test no gt See_Comment [Autom ated message] The code = Salicylate Lvl) syste m which generated this result tra nsmitted reference range : <=30.0. The reference r herems was not used to int erpret this result as normal/abnormal . [facility] CenterHIV [facility] PCR [id number] 03:37:00 Test Item Value Reference Range Interpretation Comments HIV 1 RNA PCR TEST NOT PERFORMED See_Comment INFCE Re sult Units: (LOG 10) (test blf49esuc/mLU nable to code = calculate resul t since IVCHVV12) non-numeric resultobtained for component test.Performed At: [facility] [place][Note 2] [id number] [place], [place] [id number] aubree Baumann MD Ph:[phone] [Automated mess age] The system [employer] generated this result transmitted ref erence range: (). The reference range was not used to int erpret this result as normal/abnormal . HIV-1 RNA BY <20 See_Comment INFCE Result Un its: PCR, QUANT copies/mLHIV-1 RNA not (test code = detectedThe rep ortable HIVRNAPCRT) range for this assay is 20 to 10,000,000copie s HIV-1 RNA/mL. [Automa tae message] The sy stem which generated this result transmit tae reference range : (). The reference r hermes was not used to interpret this result as normal/abnor mal. Patient HIV Status: PositiveHIV 1 RNA PCR [id number] 19:08:00 Test Item Value Reference Range Interpretation Comments HIV 1 RNA PCR (LOG See_Comment INFCE Res ult Units: 10) (test code = bgi47cnvy/m LUnable to SWQOZC14) calculate resul t since non-numeric res ultobtained for component t est.Performed At: [facility] [id number] ra Pastor JACOBS Ph:[phone] [ Automated message] The sy stem which generated this result transmitted ref erence range: (). The referen ce range was not used to int erpret this result as ludmila l/abnormal. HIV-1 RNA BY PCR, <20 See_Comment INFCE Resu lt Units: QUANT (test code = copies/mL HIV-1 RNA not HIVRNAPCRT) detectedThe rep ortable range for this assay is 20 to 10,000,000copie s HIV-1 RNA/mL. [Automa tae message] The system [employer] generated this result tra nsmitted reference range : (). The reference range was not used to interpret th is result as normal/abnormal . Patient HIV Status: PositiveCD4 HELPER T-CELL [id number] 13:09:00 Test Item Value Reference Range Interpretation Comments NEUTROPHIL % (test 0.0 % Not Estab. code = NT%) NEUTROPHIL # (test 0.0 x10E3/uL 0.0-0.1 Performed At: HD code = NT#) [facility] [address] [id number] aRy Dugan MD Ph:[phone] WBC (test code = 6.3 x10E3/uL 3.4-10.8 WBCLC) RBC (test code = 3.88 x10E6/uL 4.14-5.80 A RBCLC) HGB (test code = 12.3 g/dL 13.0-17.7 A HGBLC) HCT (test code = 38.0 % 37.5-51.0 HCTLC) MCV (test code = 98 fL 79-97 A MCVLC) MCH (test code = 31.7 pg 26.6-33.0 MCHLC) MCHC (test code = 32.4 g/dL 31.5-35.7 MCHCLC) RDW (test code = 13.5 % 11.6-15.4 RDWLC) PLT (test code = 171 x10E3/uL 150-450 PLTLC) NEUT % (test code = 76 % Not Estab. NT%LC) LYMPH % (test code = 13 % Not Estab. LY%LC) MONO % (test code = 10 % Not Estab. MO%LC) EOS % (test code = 0 % Not Estab. EO%LC) BASO % (test code = 1 % Not Estab. BA%LC) NEUT # (test code = 4.8 x10E3/uL 1.4-7.0 NT#LC) LYMPH # (test code = 0.8 x10E3/uL 0.7-3.1 LY#LC) MONO # (test code = 0.6 x10E3/uL 0.1-0.9 MO#LC) EOS # (test code = 0.0 x10E3/uL 0.0-0.4 EO#LC) BASO # (test code = 0.0 x10E3/uL 0.0-0.2 BA#LC) PERCENT CD4 HELPER 41.2 % 30.8-58.5 CELLS (test code = CD4P) ABSOLUTE CD4+ CELLS 330 /uL 359-1519 A (test code = CD4A) [id number] 06:20:00 Test Item Value Reference Range Interpretation Comments PHOSPHOROUS (test code = PHOS) 2.4 MG/DL 2.5-4.9 L [id number] 06:20:00 Test Item Value Reference Range Interpretation Comments MAGNESIUM (test code = MAG) 1.6 MG/DL 1.8-2.4 L CBC W/AUTO [id number] 06:08:00 Test Item Value Reference Range Interpretation Comments WHITE BLOOD CELL (test code = 2.7 K/mm3 3.5-11.0 L WBC) RED BLOOD CELL (test code = 3.71 M/mm3 4.70-6.10 L RBC) HEMOGLOBIN (test code = HGB) 12.1 G/DL 12.3-15.9 L HEMATOCRIT (test code = HCT) 33.3 % 35.8-46.7 L MEAN CELL VOLUME (test code = 89.8 Fl 86.3-98.9 N MCV) MEAN CELL HGB (test code = MCH) 32.6 pg 28.9-34.4 N MEAN CELL HGB CONCETRATION 36.3 G/DL 32.1-34.5 H (test code = MCHC) RED CELL DISTRIBUTION WIDTH 12.1 SD 11.5-14.5 N (test code = RDW) PLATELET COUNT (test code = 146 K/mm3 150-450 L PLT) MEAN PLATELET VOLUME (test code 12.20 fL 7.0-9.6 H = MPV) NEUTROPHIL % (test code = NT%) 42.7 % 40-76 N IMMATURE GRANULOCYTE % (test 0.4 % 0.0-5.0 N code = IG%) LYMPHOCYTE % (test code = LY%) 36.8 % 20.5-51.1 N MONOCYTE % (test code = MO%) 13.8 % 1.7-9.3 H EOSINOPHIL % (test code = EO%) 5.6 % 0.0-6.0 N BASOPHIL % (test code = BA%) 0.7 % 0.0-2.0 N NUCLEATED RBC % (test code = 0.0 /100WBC% 0.0-1.0 N NRBC%) NEUTROPHIL # (test code = NT#) 1.2 K/mm3 1.8-7.6 L IMMATURE GRANULOCYTE # (test 0.01 x10 3/uL 0.00-0.03 N code = IG#) LYMPHOCYTE # (test code = LY#) 1.0 K/mm3 0.6-3.0 N MONOCYTE # (test code = MO#) 0.4 K/mm3 0.2-1.5 N EOSINOPHIL # (test code = EO#) 0.2 K/mm3 0.0-0.4 N BASOPHIL # (test code = BA#) 0.0 K/mm3 0.0-0.2 N NUCLEATED RBC # (test code = 0.0 K/mm3 0.00-0.01 N NRBC#) MANUAL DIFF REQUIRED (test code NO DIFF/SCN CRITERIA = MDIFF) [id number] 06:45:00 Test Item Value Reference Range Interpretation Comments LIPASE (test code = LIP) 135 Unit/L 114-286 N COVID 19 INHOUSE [id number] 18:01:00 Test Item Value Reference Range Interpretation Comments COVID 19 INHOUSE AG NEGATIVE Negative Per manu facturer, (test code = negative result s should [id number]) be treated aspr esumptive and, if inconsi stent with clinical signs andsymptoms or necessary for patient man agement, should betested with an alternative mol ecular assay. Negative resultsdo not preclude SA RS-CoV-2 infection and s hould not be usedas the s ole basis for patient man agement decisions. Nega tive results should be considered in t he context of apatient's r ecent exposures, hist ory, presence of cli nicalsigns and symptoms co nsistent with COVID-19. - CT ABD PELVIS [id number] 16:32:00 [facility] 1985 Sex: M Name: QUETA GONSALEZ [facility] : 1985 Age/S: 35 / M [id number] Unit #: [id number] Loc:[place] [address] Phys: Flakita Deng DO Acct: [id number] Dis Date: Status: REG ER PHONE #: [phone] Exam Date: 07/10/2020 1546 FAX #: Reason: epigastric pain EXAMS: CPT: [id number] CT ABD PELVISW/CONT 29061 EXAMINATION: - CT ABD PELVIS W/CONT. LOCATION: B2. HISTORY: epigastric pain. COMPARISON: CT abdomen and pelvis dated 09/22/2019. TECHNIQUE: CT abdomen and pelvis was performed with the useof IV contrast (100 mL Isovue 300). Sagittal and coronal reconstructed images were available for review. This exam was performed according to our departmental dose-optimization program, which includes automated exposure control, adjustment of the mA and/or kV according to patient size, and/or use of iterative reconstruction technique. FINDINGS: Lower chest: No acute pulmonary infiltrates are identified. Heart size is normal. Abdomen: There is diffuse hypoattenuation of the liver. There has been prior cholecystectomy. The CBD is mildly dilated at 8mm, which can be seen in post cholecystectomy patients. Mild edema is seen adjacent to the pancreatic head and 2nd portion of the duodenum. The spleen, bilateral adrenal glands, and bilateral kidneys appear within normal limits. There is long segment wall thickening of the entire colon. There is no evidence of bowel obstruction. The pancreas appears normal. No pneumoperitoneum is identified. There is no mesenteric or retroperitoneal adenopathy. Pelvis:The urinary bladder appears normal. No inguinal adenopathy is identified. Bones/soft tissues: 1.4 cmwell- defined focal sclerosis in the left ilium is unchanged. No acute osseous abnormality is identified. No aggressive lytic or blastic lesions are seen. IMPRESSION: Long segment wall thickening of theentire colon consistent with PAGE 1 Signed Report (CONTINUED) Name: QUETA DOYLE [facility] :1985 Age/S: 35 / M [address] Unit #: [id number] Loc: [place] [address] Phys: Flakita Deng DO Acct: [id number] Dis Date: Status: REG ER PHONE #: [phone] Exam Date: 07/10/2020 1546 FAX #: Reason: epigastric pain EXAMS: CPT: [id number] CT ABD PELVIS W/CONT 60430 <Continued> pancolitis. Mild edema adjacent to the pancreatic head and 2nd portion of the duodenum, which may besecondary to pancreatitis or duodenitis. Recommend correlation with lipase levels. Hepatic steatosis. at 1632 Reported and signed by: Lucy Arora M.D. CC: Hafsa PELAYO; Flakita Deng DO Technologist:Vish Harrison, RT(R)(CT) CTDI:DLP: Trnscb Date/Time: 07/10/2020 (1632) [email or web address] Orig Print D/T: S: 07/10/2020 (2436) PAGE 2 Signed [id number] 15:19:00 Test Item Value Reference Range Interpretation Comments LIPASE (test code = LIP) 535 Unit/L 114-286 H BASIC METABOLIC [id number] 15:19:00 Test Item Value Reference Range Interpretation Comments SODIUM (test code = NA) 141 mmol/L 134-147 N POTASSIUM (test code = 3.4 mmol/L 3.4-5.0 N K) CHLORIDE (test code = 102 mmol/L 100-108 N CL) CARBON DIOXIDE (test 29 mmol/L 21-32 N code = CO2) ANION GAP (test code = 10.0 GAP calc 4.0-15.0 N GAP) GLUCOSE (test code = 137 MG/DL 70-110 H GLU) BLOOD UREA NITROGEN 9 MG/DL 7-18 N (test code = BUN) GLOMERULAR FILTRATION >=60 max estimate >60 RATE (test code = GFR) estGFR CREATININE (test code = 0.8 MG/DL 0.8-1.3 N CREAT) CALCIUM (test code = CA) 8.9 MG/DL 8.5-10.1 N HEPATIC FUNCTION [id number] 15:19:00 Test Item Value Reference Range Interpretation Comments TOTAL PROTEIN (test code = PROT) 8.8 G/DL 6.4-8.2 H ALBUMIN (test code = ALB) 4.3 G/DL 3.4-5.0 N BILIRUBIN TOTAL (test code = BILT) 1.70 MG/DL 0.2-1.2 H BILIRUBIN DIRECT (test code = 0.50 MG/DL 0.00-0.30 H BILD) BILIRUBIN INDIRECT (test code = 1.20 MG/DL 0.2-1.2 N BILIND) SGOT/AST (test code = AST) 61 Unit/L 15-37 H SGPT/ALT (test code = ALT) 50 Unit/L 12-78 N ALKALINE PHOSPHATASE TOTAL (test 93 Unit/L 50-136 N code = ALKP) CBC W/AUTO [id number] 15:10:00 Test Item Value Reference Range Interpretation Comments WHITE BLOOD CELL (test code = 8.9 K/mm3 3.5-11.0 N WBC) RED BLOOD CELL (test code = 4.16 M/mm3 4.70-6.10 L RBC) HEMOGLOBIN (test code = HGB) 13.7 G/DL 12.3-15.9 N HEMATOCRIT (test code = HCT) 37.5 % 35.8-46.7 N MEAN CELL VOLUME (test code = 90.1 Fl 86.3-98.9 N MCV) MEAN CELL HGB (test code = MCH) 32.9 pg 28.9-34.4 N MEAN CELL HGB CONCETRATION 36.5 G/DL 32.1-34.5 H (test code = MCHC) RED CELL DISTRIBUTION WIDTH 13.1 SD 11.5-14.5 N (test code = RDW) PLATELET COUNT (test code = 228 K/mm3 150-450 N PLT) MEAN PLATELET VOLUME (test code 11.40 fL 7.0-9.6 H = MPV) NEUTROPHIL % (test code = NT%) 83.0 % 40-76 H IMMATURE GRANULOCYTE % (test 0.2 % 0.0-5.0 N code = IG%) LYMPHOCYTE % (test code = LY%) 10.2 % 20.5-51.1 L MONOCYTE % (test code = MO%) 6.3 % 1.7-9.3 N EOSINOPHIL % (test code = EO%) 0.0 % 0.0-6.0 N BASOPHIL % (test code = BA%) 0.3 % 0.0-2.0 N NUCLEATED RBC % (test code = 0.0 /100WBC% 0.0-1.0 N NRBC%) NEUTROPHIL # (test code = NT#) 7.3 K/mm3 1.8-7.6 N IMMATURE GRANULOCYTE # (test 0.02 x10 3/uL 0.00-0.03 N code = IG#) LYMPHOCYTE # (test code = LY#) 0.9 K/mm3 0.6-3.0 N MONOCYTE # (test code = MO#) 0.6 K/mm3 0.2-1.5 N EOSINOPHIL # (test code = EO#) 0.0 K/mm3 0.0-0.4 N BASOPHIL # (test code = BA#) 0.0 K/mm3 0.0-0.2 N NUCLEATED RBC # (test code = 0.0 K/mm3 0.00-0.01 N NRBC#) MANUAL DIFF REQUIRED (test code NO DIFF/SCN CRITERIA = MDIFF) CARDIAC [id number] 20:50:00 Test Item Value Reference Range Interpretation Comments Troponin-I (test code no gt See_Comment [Auto mated message] The = Troponin-I) system which g enerated this result transmit tae reference range : <=0.40. The reference r hermes was not used to interpr et this result as ludmila l/abnormal. [place] 735341-05-03 20:50:00 Test Item Value Reference Range Interpretation Comments Glucose Lvl (test code = Glucose Lvl) 101 70-99 [place] 735341-05-03 20:50:00 Test Item Value Reference Range Interpretation Comments BUN (test code = BUN) 14 7-22 [place] 735341-05-03 20:50:00 Test Item Value Reference Range Interpretation Comments Creatinine Lvl (test code = Creatinine 0.87 0.50-1.40 Lvl) [place] 735341-05-03 20:50:00 Test Item Value Reference Range Interpretation Comments Sodium Lvl (test code = Sodium Lvl) 143 135-145 [place] 735341-05-03 20:50:00 Test Item Value Reference Range Interpretation Comments Potassium Lvl (test code = Potassium 3.0 3.5-5.1 Lvl) [place] 735341-05-03 20:50:00 Test Item Value Reference Range Interpretation Comments Chloride Lvl (test code = Chloride Lvl) 107 95-109 [place] 735341-05-03 20:50:00 Test Item Value Reference Range Interpretation Comments CO2 (test code = CO2) 26 24-32 [place] 735341-05-03 20:50:00 Test Item Value Reference Range Interpretation Comments AGAP (test code = AGAP) 13.0 10.0-20.0 [place] 735341-05-03 20:50:00 Test Item Value Reference Range Interpretation Comments Calcium Lvl (test code = Calcium Lvl) 8.9 8.5-10.5 [place] 735341-05-03 20:50:00 Test Item Value Reference Range Interpretation Comments eGFR (test code = eGFR) 111 [facility] HospitalSjugvqsHBVFFQQHTV8977-30-97 20:50:00 Test Item Value Reference Range Interpretation Comments Segs (test code = Segs) 35.3 45.0-75.0 [place] [address]-05-03 20:50:00 Test Item Value Reference Range Interpretation Comments Lymphocytes (test code = Lymphocytes) 57.5 20.0-40.0 [place] [address]-05-03 20:50:00 Test Item Value Reference Range Interpretation Comments Monocytes (test code = Monocytes) 5.5 2.0-12.0 [place] [address]-05-03 20:50:00 Test Item Value Reference Range Interpretation Comments Eosinophils (test code = 0.6 See_Comment [A utomated message] The Eosinophils) system which ge nerated this result tra nsmitted reference range : <=4.0. The reference r hermes was not used to int erpret this result as normal/abnormal . [place] [address]-05-03 20:50:00 Test Item Value Reference Range Interpretation Comments Basophils (test code = 1.1 See_Comment [Aut omated message] The Basophils) system which ge nerated this result tra nsmitted reference range : <=1.0. The reference r hermes was not used to int erpret this result as normal/abnormal . [facility] CenterRqvvdoyWGUZPXDFAV5722-90-56 20:50:00 Test Item Value Reference Range Interpretation Comments Neutrophils # (test code = Neutrophils 1.5 1.5-8.1 #) [place] [address]-05-03 20:50:00 Test Item Value Reference Range Interpretation Comments Lymphocytes # (test code = Lymphocytes 2.5 1.0-5.5 #) [place] 044741-05-03 20:50:00 Test Item Value Reference Range Interpretation Comments Monocytes # (test code 0.2 See_Comment [Aut omated message] The = Monocytes #) system which generated this result tra nsmitted reference range : <=0.8. The reference r hermes was not used to int erpret this result as normal/abnormal . [place] 044741-05-03 20:50:00 Test Item Value Reference Range Interpretation Comments WBC (test code = WBC) 4.3 3.7-10.4 [place] [address]-05-03 20:50:00 Test Item Value Reference Range Interpretation Comments RBC (test code = RBC) 3.85 4.70-6.10 [place] 044741-05-03 20:50:00 Test Item Value Reference Range Interpretation Comments Hgb (test code = Hgb) 12.6 14.0-18.0 [facility] CenterMsosqwwURRVILSSEW7876-51-85 20:50:00 Test Item Value Reference Range Interpretation Comments Hct (test code = Hct) 36.2 42.0-54.0 [facility] HospitalAiybptqNQGGWROSQH6372-06-44 20:50:00 Test Item Value Reference Range Interpretation Comments MCV (test code = MCV) 93.9 80.0-94.0 [facility] CenterTcyimbuWQCEJUDFEL4990-88-81 20:50:00 Test Item Value Reference Range Interpretation Comments MCH (test code = MCH) 32.7 pg 27.0-31.0 [facility] CenterZwihrmbXQKGMCGKIR8068-48-33 20:50:00 Test Item Value Reference Range Interpretation Comments MCHC (test code = MCHC) 34.8 32.0-36.0 [facility] HospitalVqlqntmYWYIAKOEDV8433-19-77 20:50:00 Test Item Value Reference Range Interpretation Comments RDW (test code = RDW) 14.1 11.5-14.5 [facility] CenterGucdzftQWIBEDVPVD0540-98-22 20:50:00 Test Item Value Reference Range Interpretation Comments Platelet (test code = Platelet) 258 133-450 [facility] HospitalWwflyeqEZEUHRWWGU0467-75-95 20:50:00 Test Item Value Reference Range Interpretation Comments MPV (test code = MPV) 8.7 7.4-10.4 [facility] CenterCARDIAC IGIENKK7020-96-08 20:50:00 Test Item Value Reference Range Interpretation Comments Troponin-I (test code no gt See_Comment [Auto mated message] The = Troponin-I) system which g enerated this result transmit tae reference range : <=0.40. The reference r hermes was not used to interpr et this result as ludmila l/abnormal. [facility]App[facility] Inc [id number] 20:50:00 Test Item Value Reference Range Interpretation Comments Glucose Lvl (test code = Glucose Lvl) 101 70-99 [facility] CenterWHOOP OFSLT3523-97-13 20:50:00 Test Item Value Reference Range Interpretation Comments BUN (test code = BUN) 14 7-22 [facility] CenterWHOOP [id number] 20:50:00 Test Item Value Reference Range Interpretation Comments Creatinine Lvl (test code = Creatinine 0.87 0.50-1.40 Lvl) [place] 735341-05-03 20:50:00 Test Item Value Reference Range Interpretation Comments Sodium Lvl (test code = Sodium Lvl) 143 135-145 [place] 735341-05-03 20:50:00 Test Item Value Reference Range Interpretation Comments Potassium Lvl (test code = Potassium 3.0 3.5-5.1 Lvl) [place] 735341-05-03 20:50:00 Test Item Value Reference Range Interpretation Comments Chloride Lvl (test code = Chloride Lvl) 107 95-109 [place] 735341-05-03 20:50:00 Test Item Value Reference Range Interpretation Comments CO2 (test code = CO2) 26 24-32 [place] 735341-05-03 20:50:00 Test Item Value Reference Range Interpretation Comments AGAP (test code = AGAP) 13.0 10.0-20.0 [place] 735341-05-03 20:50:00 Test Item Value Reference Range Interpretation Comments Calcium Lvl (test code = Calcium Lvl) 8.9 8.5-10.5 [place] 735341-05-03 20:50:00 Test Item Value Reference Range Interpretation Comments eGFR (test code = eGFR) 111 [place] 044741-05-03 20:50:00 Test Item Value Reference Range Interpretation Comments Segs (test code = Segs) 35.3 45.0-75.0 [place] [address]-05-03 20:50:00 Test Item Value Reference Range Interpretation Comments Lymphocytes (test code = Lymphocytes) 57.5 20.0-40.0 [place] [address]-05-03 20:50:00 Test Item Value Reference Range Interpretation Comments Monocytes (test code = Monocytes) 5.5 2.0-12.0 [place] [address]-05-03 20:50:00 Test Item Value Reference Range Interpretation Comments Eosinophils (test code = 0.6 See_Comment [A utomated message] The Eosinophils) system which ge nerated this result tra nsmitted reference range : <=4.0. The reference r hermes was not used to int erpret this result as normal/abnormal . [place] 044741-05-03 20:50:00 Test Item Value Reference Range Interpretation Comments Basophils (test code = 1.1 See_Comment [Aut omated message] The Basophils) system which ge nerated this result tra nsmitted reference range : <=1.0. The reference r hermes was not used to int erpret this result as normal/abnormal . [facility] CenterEgjmuacCDOIVDXYIU2478-67-04 20:50:00 Test Item Value Reference Range Interpretation Comments Neutrophils # (test code = Neutrophils 1.5 1.5-8.1 #) [facility] CenterHzswcfzYJGOYJJNIL4306-39-74 20:50:00 Test Item Value Reference Range Interpretation Comments Lymphocytes # (test code = Lymphocytes 2.5 1.0-5.5 #) [facility] CenterRdlurvsAGLIPOUZNT8081-73-23 20:50:00 Test Item Value Reference Range Interpretation Comments Monocytes # (test code 0.2 See_Comment [Aut omated message] The = Monocytes #) system which generated this result tra nsmitted reference range : <=0.8. The reference r hermes was not used to int erpret this result as normal/abnormal . [facility] CenterFtehtpwFWPVHWPGQB0659-57-51 20:50:00 Test Item Value Reference Range Interpretation Comments WBC (test code = WBC) 4.3 3.7-10.4 [facility] CenterShulbikHUWQENMYZO8320-60-17 20:50:00 Test Item Value Reference Range Interpretation Comments RBC (test code = RBC) 3.85 4.70-6.10 [facility] CenterGdnrpfvTDMIPFJKHP3375-20-83 20:50:00 Test Item Value Reference Range Interpretation Comments Hgb (test code = Hgb) 12.6 14.0-18.0 [place] 044741-05-03 20:50:00 Test Item Value Reference Range Interpretation Comments Hct (test code = Hct) 36.2 42.0-54.0 [place] [address]-05-03 20:50:00 Test Item Value Reference Range Interpretation Comments MCV (test code = MCV) 93.9 80.0-94.0 [place] 044741-05-03 20:50:00 Test Item Value Reference Range Interpretation Comments MCH (test code = MCH) 32.7 pg 27.0-31.0 [place] 044741-05-03 20:50:00 Test Item Value Reference Range Interpretation Comments MCHC (test code = MCHC) 34.8 32.0-36.0 [facility] HospitalBkaxvdzFUWRYHERBJ8177-42-91 20:50:00 Test Item Value Reference Range Interpretation Comments RDW (test code = RDW) 14.1 11.5-14.5 [facility] CenterWhptfszXDIGNGWGYT3051-90-56 20:50:00 Test Item Value Reference Range Interpretation Comments Platelet (test code = Platelet) 258 133-450 [facility] HospitalUdptqpaDXJSXEXSWS2323-77-95 20:50:00 Test Item Value Reference Range Interpretation Comments MPV (test code = MPV) 8.7 7.4-10.4 [facility] CenterCARDIAC XFLDHJC5686-10-74 20:50:00 Test Item Value Reference Range Interpretation Comments Troponin-I (test code no gt See_Comment [Auto mated message] The = Troponin-I) system which g enerated this result transmit tae reference range : <=0.40. The reference r hermes was not used to interpr et this result as ludmila l/abnormal. [facility] CenterApp[facility] Inc [id number] 20:50:00 Test Item Value Reference Range Interpretation Comments Glucose Lvl (test code = Glucose Lvl) 101 70-99 [facility] [id number] 20:50:00 Test Item Value Reference Range Interpretation Comments BUN (test code = BUN) 14 7-22 [facility] CenterWHOOP ZDLRK4126-18-16 20:50:00 Test Item Value Reference Range Interpretation Comments Creatinine Lvl (test code = Creatinine 0.87 0.50-1.40 Lvl) [facility] [id number] 20:50:00 Test Item Value Reference Range Interpretation Comments Sodium Lvl (test code = Sodium Lvl) 143 135-145 [facility] [id number] 20:50:00 Test Item Value Reference Range Interpretation Comments Potassium Lvl (test code = Potassium 3.0 3.5-5.1 Lvl) [facility] [id number] 20:50:00 Test Item Value Reference Range Interpretation Comments Chloride Lvl (test code = Chloride Lvl) 107 95-109 [facility] [id number] 20:50:00 Test Item Value Reference Range Interpretation Comments CO2 (test code = CO2) 26 24-32 [place] 735341-05-03 20:50:00 Test Item Value Reference Range Interpretation Comments AGAP (test code = AGAP) 13.0 10.0-20.0 [place] 735341-05-03 20:50:00 Test Item Value Reference Range Interpretation Comments Calcium Lvl (test code = Calcium Lvl) 8.9 8.5-10.5 [place] 735341-05-03 20:50:00 Test Item Value Reference Range Interpretation Comments eGFR (test code = eGFR) 111 [place] 044741-05-03 20:50:00 Test Item Value Reference Range Interpretation Comments Segs (test code = Segs) 35.3 45.0-75.0 [place] [address]-05-03 20:50:00 Test Item Value Reference Range Interpretation Comments Lymphocytes (test code = Lymphocytes) 57.5 20.0-40.0 [place] [address]-05-03 20:50:00 Test Item Value Reference Range Interpretation Comments Monocytes (test code = Monocytes) 5.5 2.0-12.0 [place] [address]-05-03 20:50:00 Test Item Value Reference Range Interpretation Comments Eosinophils (test code = 0.6 See_Comment [A utomated message] The Eosinophils) system which ge nerated this result tra nsmitted reference range : <=4.0. The reference r hermes was not used to int erpret this result as normal/abnormal . [place] [address]-05-03 20:50:00 Test Item Value Reference Range Interpretation Comments Basophils (test code = 1.1 See_Comment [Aut omated message] The Basophils) system which ge nerated this result tra nsmitted reference range : <=1.0. The reference r hermes was not used to int erpret this result as normal/abnormal . [place] [address]-05-03 20:50:00 Test Item Value Reference Range Interpretation Comments Neutrophils # (test code = Neutrophils 1.5 1.5-8.1 #) [place] [address]-05-03 20:50:00 Test Item Value Reference Range Interpretation Comments Lymphocytes # (test code = Lymphocytes 2.5 1.0-5.5 #) [place] [address]-05-03 20:50:00 Test Item Value Reference Range Interpretation Comments Monocytes # (test code 0.2 See_Comment [Aut omated message] The = Monocytes #) system which generated this result tra nsmitted reference range : <=0.8. The reference r hermes was not used to int erpret this result as normal/abnormal . [facility] CenterWoljcgmFDEWDQVCJF5791-47-09 20:50:00 Test Item Value Reference Range Interpretation Comments WBC (test code = WBC) 4.3 3.7-10.4 [facility] HospitalPmqrzdxDVRPHWTCHZ6273-06-49 20:50:00 Test Item Value Reference Range Interpretation Comments RBC (test code = RBC) 3.85 4.70-6.10 [facility] HospitalCipposmTCYTWLKSYT2405-72-56 20:50:00 Test Item Value Reference Range Interpretation Comments Hgb (test code = Hgb) 12.6 14.0-18.0 [facility] HospitalFyejdqvQOWBXRAKUR6813-01-22 20:50:00 Test Item Value Reference Range Interpretation Comments Hct (test code = Hct) 36.2 42.0-54.0 [facility] HospitalWvxvleiZBUOGTRPBS7118-22-70 20:50:00 Test Item Value Reference Range Interpretation Comments MCV (test code = MCV) 93.9 80.0-94.0 [facility] HospitalWiiifvuQZNQONNKJR5580-47-91 20:50:00 Test Item Value Reference Range Interpretation Comments MCH (test code = MCH) 32.7 pg 27.0-31.0 [facility] HospitalMkxoybmISDBUHIBOW9760-10-79 20:50:00 Test Item Value Reference Range Interpretation Comments MCHC (test code = MCHC) 34.8 32.0-36.0 [facility] HospitalKahdocvGGOAOKLTOA6474-43-81 20:50:00 Test Item Value Reference Range Interpretation Comments RDW (test code = RDW) 14.1 11.5-14.5 [facility] HospitalTojqafoIZXDRNVZZT9527-57-06 20:50:00 Test Item Value Reference Range Interpretation Comments Platelet (test code = Platelet) 258 133-450 [facility] HospitalQgdftobYKQPWDCRSM8875-46-41 20:50:00 Test Item Value Reference Range Interpretation Comments MPV (test code = MPV) 8.7 7.4-10.4 [facility] CenterCARDIAC WMJCIFL7557-73-11 20:50:00 Test Item Value Reference Range Interpretation Comments Troponin-I (test code no gt See_Comment [Auto mated message] The = Troponin-I) system which g enerated this result transmit tae reference range : <=0.40. The reference r hermes was not used to interpr et this result as ludmila l/abnormal. [place] 735341-05-03 20:50:00 Test Item Value Reference Range Interpretation Comments Glucose Lvl (test code = Glucose Lvl) 101 70-99 [place] 735341-05-03 20:50:00 Test Item Value Reference Range Interpretation Comments BUN (test code = BUN) 14 7-22 [place] [address]-05-03 20:50:00 Test Item Value Reference Range Interpretation Comments Creatinine Lvl (test code = Creatinine 0.87 0.50-1.40 Lvl) [place] [address]-05-03 20:50:00 Test Item Value Reference Range Interpretation Comments Sodium Lvl (test code = Sodium Lvl) 143 135-145 [place] [address]-05-03 20:50:00 Test Item Value Reference Range Interpretation Comments Potassium Lvl (test code = Potassium 3.0 3.5-5.1 Lvl) [place] 735341-05-03 20:50:00 Test Item Value Reference Range Interpretation Comments Chloride Lvl (test code = Chloride Lvl) 107 95-109 [place] 735341-05-03 20:50:00 Test Item Value Reference Range Interpretation Comments CO2 (test code = CO2) 26 24-32 [place] [address]-05-03 20:50:00 Test Item Value Reference Range Interpretation Comments AGAP (test code = AGAP) 13.0 10.0-20.0 [place] [address]-05-03 20:50:00 Test Item Value Reference Range Interpretation Comments Calcium Lvl (test code = Calcium Lvl) 8.9 8.5-10.5 [place] 735341-05-03 20:50:00 Test Item Value Reference Range Interpretation Comments eGFR (test code = eGFR) 111 [place] [address]-05-03 20:50:00 Test Item Value Reference Range Interpretation Comments Segs (test code = Segs) 35.3 45.0-75.0 [place] [address]-05-03 20:50:00 Test Item Value Reference Range Interpretation Comments Lymphocytes (test code = Lymphocytes) 57.5 20.0-40.0 [facility] CenterApiwdwxJXRQITDNFE5458-62-40 20:50:00 Test Item Value Reference Range Interpretation Comments Monocytes (test code = Monocytes) 5.5 2.0-12.0 [place] 044741-05-03 20:50:00 Test Item Value Reference Range Interpretation Comments Eosinophils (test code = 0.6 See_Comment [A utomated message] The Eosinophils) system which ge nerated this result tra nsmitted reference range : <=4.0. The reference r hermes was not used to int erpret this result as normal/abnormal . [place] 044741-05-03 20:50:00 Test Item Value Reference Range Interpretation Comments Basophils (test code = 1.1 See_Comment [Aut omated message] The Basophils) system which ge nerated this result tra nsmitted reference range : <=1.0. The reference r hermes was not used to int erpret this result as normal/abnormal . [facility] CenterOzlsypyKWNJPUDSQW8490-64-58 20:50:00 Test Item Value Reference Range Interpretation Comments Neutrophils # (test code = Neutrophils 1.5 1.5-8.1 #) [facility] CenterXorlypmGHBZIUFLGL2249-27-61 20:50:00 Test Item Value Reference Range Interpretation Comments Lymphocytes # (test code = Lymphocytes 2.5 1.0-5.5 #) [place] [address]-05-03 20:50:00 Test Item Value Reference Range Interpretation Comments Monocytes # (test code 0.2 See_Comment [Aut omated message] The = Monocytes #) system which generated this result tra nsmitted reference range : <=0.8. The reference r hermes was not used to int erpret this result as normal/abnormal . [facility]mxz[facility]zNJKUUJWICR8074-62-39 20:50:00 Test Item Value Reference Range Interpretation Comments WBC (test code = WBC) 4.3 3.7-10.4 [place] 044741-05-03 20:50:00 Test Item Value Reference Range Interpretation Comments RBC (test code = RBC) 3.85 4.70-6.10 [place] 044741-05-03 20:50:00 Test Item Value Reference Range Interpretation Comments Hgb (test code = Hgb) 12.6 14.0-18.0 [place] 044741-05-03 20:50:00 Test Item Value Reference Range Interpretation Comments Hct (test code = Hct) 36.2 42.0-54.0 [place] 044741-05-03 20:50:00 Test Item Value Reference Range Interpretation Comments MCV (test code = MCV) 93.9 80.0-94.0 [place] [address]-05-03 20:50:00 Test Item Value Reference Range Interpretation Comments MCH (test code = MCH) 32.7 pg 27.0-31.0 [place] 044741-05-03 20:50:00 Test Item Value Reference Range Interpretation Comments MCHC (test code = MCHC) 34.8 32.0-36.0 [place] 044741-05-03 20:50:00 Test Item Value Reference Range Interpretation Comments RDW (test code = RDW) 14.1 11.5-14.5 [place] 044741-05-03 20:50:00 Test Item Value Reference Range Interpretation Comments Platelet (test code = Platelet) 258 133-450 [facility] CenterGunophnDXVRZWUVEP6509-92-10 20:50:00 Test Item Value Reference Range Interpretation Comments MPV (test code = MPV) 8.7 7.4-10.4 [facility]2020-11-10 11:20:00 Test Item Value Reference Range Interpretation Comments Glucose Lvl (test code = Glucose Lvl) 56 70-99 [facility]2020-11-10 11:20:00 Test Item Value Reference Range Interpretation Comments BUN (test code = BUN) 8 7-22 [facility]2020-11-10 11:20:00 Test Item Value Reference Range Interpretation Comments Creatinine Lvl (test code = Creatinine 0.79 0.50-1.40 Lvl) [facility]2020-11-10 11:20:00 Test Item Value Reference Range Interpretation Comments Sodium Lvl (test code = Sodium Lvl) 137 135-145 [facility]2020-11-10 11:20:00 Test Item Value Reference Range Interpretation Comments Potassium Lvl (test code = Potassium 3.8 3.5-5.1 Lvl) [facility]2020-11-10 11:20:00 Test Item Value Reference Range Interpretation Comments Chloride Lvl (test code = Chloride Lvl) 105 95-109 [facility] [employer] [id number] 11:20:00 Test Item Value Reference Range Interpretation Comments CO2 (test code = CO2) 21 24-32 [facility] [id number] 11:20:00 Test Item Value Reference Range Interpretation Comments Calcium Lvl (test code = Calcium Lvl) 8.7 8.5-10.5 [facility] [employer] [id number] 11:20:00 Test Item Value Reference Range Interpretation Comments Total Protein (test code = Total 7.1 6.4-8.4 Protein) [facility] [employer] [id number] 11:20:00 Test Item Value Reference Range Interpretation Comments Albumin Lvl (test code = Albumin Lvl) 3.1 3.5-5.0 [facility] [employer] [id number] 11:20:00 Test Item Value Reference Range Interpretation Comments ALT (test code = ALT) 18 See_Comment [Auto mated message] The system which ge nerated this result transmit tae reference range : <=65. The reference range was not used to interpr et this result as ludmila l/abnormal. [facility] [employer] [id number] 11:20:00 Test Item Value Reference Range Interpretation Comments AST (test code = AST) 19 See_Comment [Auto mated message] The system which ge nerated this result transmit tae reference range : <=37. The reference range was not used to interpr et this result as ludmila l/abnormal. [facility] [employer] [id number] 11:20:00 Test Item Value Reference Range Interpretation Comments Alk Phos (test code = Alk Phos) 78 39-136 [facility] [employer] [id number] 11:20:00 Test Item Value Reference Range Interpretation Comments Bili Total (test code = Bili Total) 1.2 0.2-1.3 [facility] [employer] [id number] 11:20:00 Test Item Value Reference Range Interpretation Comments AGAP (test code = AGAP) 14.8 10.0-20.0 [facility] [employer] [id number] 11:20:00 Test Item Value Reference Range Interpretation Comments B/C Ratio (test code = B/C Ratio) 10 1 6-25 [place] 735340-11-10 11:20:00 Test Item Value Reference Range Interpretation Comments Globulin (test code = Globulin) 4.0 2.7-4.2 [place] 735340-11-10 11:20:00 Test Item Value Reference Range Interpretation Comments A/G Ratio (test code = A/G Ratio) 0.8 1 0.7-1.6 [facility]2020-11-10 11:20:00 Test Item Value Reference Range Interpretation Comments eGFR (test code = eGFR) 116 [place] 735340-11-10 11:20:00 Test Item Value Reference Range Interpretation Comments Lipase Lvl (test code = Lipase Lvl) 337 73-393 [facility]2020-11-10 11:20:00 Test Item Value Reference Range Interpretation Comments Glucose Lvl (test code = Glucose Lvl) 56 70-99 [place] 735340-11-10 11:20:00 Test Item Value Reference Range Interpretation Comments BUN (test code = BUN) 8 7-22 [facility]2020-11-10 11:20:00 Test Item Value Reference Range Interpretation Comments Creatinine Lvl (test code = Creatinine 0.79 0.50-1.40 Lvl) [facility]2020-11-10 11:20:00 Test Item Value Reference Range Interpretation Comments Sodium Lvl (test code = Sodium Lvl) 137 135-145 [facility]2020-11-10 11:20:00 Test Item Value Reference Range Interpretation Comments Potassium Lvl (test code = Potassium 3.8 3.5-5.1 Lvl) [facility]2020-11-10 11:20:00 Test Item Value Reference Range Interpretation Comments Chloride Lvl (test code = Chloride Lvl) 105 95-109 [facility]2020-11-10 11:20:00 Test Item Value Reference Range Interpretation Comments CO2 (test code = CO2) 21 24-32 [facility]2020-11-10 11:20:00 Test Item Value Reference Range Interpretation Comments Calcium Lvl (test code = Calcium Lvl) 8.7 8.5-10.5 [facility]2020-11-10 11:20:00 Test Item Value Reference Range Interpretation Comments Total Protein (test code = Total 7.1 6.4-8.4 Protein) [facility] [employer] [id number] 11:20:00 Test Item Value Reference Range Interpretation Comments Albumin Lvl (test code = Albumin Lvl) 3.1 3.5-5.0 [facility] [employer] [id number] 11:20:00 Test Item Value Reference Range Interpretation Comments ALT (test code = ALT) 18 See_Comment [Auto mated message] The system which ge nerated this result transmit tae reference range : <=65. The reference range was not used to interpr et this result as ludmila l/abnormal. [facility] [employer] [id number] 11:20:00 Test Item Value Reference Range Interpretation Comments AST (test code = AST) 19 See_Comment [Auto mated message] The system which ge nerated this result transmit tae reference range : <=37. The reference range was not used to interpr et this result as ludmila l/abnormal. [facility] [employer] [id number] 11:20:00 Test Item Value Reference Range Interpretation Comments Alk Phos (test code = Alk Phos) 78 39-136 [facility] [employer] [id number] 11:20:00 Test Item Value Reference Range Interpretation Comments Bili Total (test code = Bili Total) 1.2 0.2-1.3 [facility] [employer] [id number] 11:20:00 Test Item Value Reference Range Interpretation Comments AGAP (test code = AGAP) 14.8 10.0-20.0 [facility] [employer] [id number] 11:20:00 Test Item Value Reference Range Interpretation Comments B/C Ratio (test code = B/C Ratio) 10 1 6-25 [facility] [employer] [id number] 11:20:00 Test Item Value Reference Range Interpretation Comments Globulin (test code = Globulin) 4.0 2.7-4.2 [facility] [employer] [id number] 11:20:00 Test Item Value Reference Range Interpretation Comments A/G Ratio (test code = A/G Ratio) 0.8 1 0.7-1.6 [facility] [employer] [id number] 11:20:00 Test Item Value Reference Range Interpretation Comments eGFR (test code = eGFR) 116 [place] 735340-11-10 11:20:00 Test Item Value Reference Range Interpretation Comments Lipase Lvl (test code = Lipase Lvl) 337 73-393 [place] 735340-11-10 11:20:00 Test Item Value Reference Range Interpretation Comments Glucose Lvl (test code = Glucose Lvl) 56 70-99 [place] 735340-11-10 11:20:00 Test Item Value Reference Range Interpretation Comments BUN (test code = BUN) 8 7-22 [place] [address]-11-10 11:20:00 Test Item Value Reference Range Interpretation Comments Creatinine Lvl (test code = Creatinine 0.79 0.50-1.40 Lvl) [place] 735340-11-10 11:20:00 Test Item Value Reference Range Interpretation Comments Sodium Lvl (test code = Sodium Lvl) 137 135-145 [place] 735340-11-10 11:20:00 Test Item Value Reference Range Interpretation Comments Potassium Lvl (test code = Potassium 3.8 3.5-5.1 Lvl) [place] 735340-11-10 11:20:00 Test Item Value Reference Range Interpretation Comments Chloride Lvl (test code = Chloride Lvl) 105 95-109 [place] 735340-11-10 11:20:00 Test Item Value Reference Range Interpretation Comments CO2 (test code = CO2) 21 24-32 [place] [address]-11-10 11:20:00 Test Item Value Reference Range Interpretation Comments Calcium Lvl (test code = Calcium Lvl) 8.7 8.5-10.5 [place] [address]-11-10 11:20:00 Test Item Value Reference Range Interpretation Comments Total Protein (test code = Total 7.1 6.4-8.4 Protein) [place] 735340-11-10 11:20:00 Test Item Value Reference Range Interpretation Comments Albumin Lvl (test code = Albumin Lvl) 3.1 3.5-5.0 [place] 735340-11-10 11:20:00 Test Item Value Reference Range Interpretation Comments ALT (test code = ALT) 18 See_Comment [Auto mated message] The system which ge nerated this result transmit tae reference range : <=65. The reference range was not used to interpr et this result as ludmila l/abnormal. [facility] [id number] 11:20:00 Test Item Value Reference Range Interpretation Comments AST (test code = AST) 19 See_Comment [Auto mated message] The system which ge nerated this result transmit tae reference range : <=37. The reference range was not used to interpr et this result as ludmila l/abnormal. [facility] [id number] 11:20:00 Test Item Value Reference Range Interpretation Comments Alk Phos (test code = Alk Phos) 78 39-136 [facility] [id number] 11:20:00 Test Item Value Reference Range Interpretation Comments Bili Total (test code = Bili Total) 1.2 0.2-1.3 [facility]2020-11-10 11:20:00 Test Item Value Reference Range Interpretation Comments AGAP (test code = AGAP) 14.8 10.0-20.0 [facility] [id number] 11:20:00 Test Item Value Reference Range Interpretation Comments B/C Ratio (test code = B/C Ratio) 10 1 6-25 [facility] [id number] 11:20:00 Test Item Value Reference Range Interpretation Comments Globulin (test code = Globulin) 4.0 2.7-4.2 [facility] [id number] 11:20:00 Test Item Value Reference Range Interpretation Comments A/G Ratio (test code = A/G Ratio) 0.8 1 0.7-1.6 [facility] [id number] 11:20:00 Test Item Value Reference Range Interpretation Comments eGFR (test code = eGFR) 116 [facility] [id number] 11:20:00 Test Item Value Reference Range Interpretation Comments Lipase Lvl (test code = Lipase Lvl) 337 73-393 [facility] [id number] 11:20:00 Test Item Value Reference Range Interpretation Comments Glucose Lvl (test code = Glucose Lvl) 56 70-99 [facility] [id number] 11:20:00 Test Item Value Reference Range Interpretation Comments BUN (test code = BUN) 8 7-22 [facility] [id number] 11:20:00 Test Item Value Reference Range Interpretation Comments Creatinine Lvl (test code = Creatinine 0.79 0.50-1.40 Lvl) [facility] CenterAmigoCATATRIUM [id number] 11:20:00 Test Item Value Reference Range Interpretation Comments Sodium Lvl (test code = Sodium Lvl) 137 135-145 [facility]2020-11-10 11:20:00 Test Item Value Reference Range Interpretation Comments Potassium Lvl (test code = Potassium 3.8 3.5-5.1 Lvl) [place] 735340-11-10 11:20:00 Test Item Value Reference Range Interpretation Comments Chloride Lvl (test code = Chloride Lvl) 105 95-109 [facility] [id number] 11:20:00 Test Item Value Reference Range Interpretation Comments CO2 (test code = CO2) 21 24-32 [facility] [id number] 11:20:00 Test Item Value Reference Range Interpretation Comments Calcium Lvl (test code = Calcium Lvl) 8.7 8.5-10.5 [facility] [id number] 11:20:00 Test Item Value Reference Range Interpretation Comments Total Protein (test code = Total 7.1 6.4-8.4 Protein) [facility] [id number] 11:20:00 Test Item Value Reference Range Interpretation Comments Albumin Lvl (test code = Albumin Lvl) 3.1 3.5-5.0 [facility] [id number] 11:20:00 Test Item Value Reference Range Interpretation Comments ALT (test code = ALT) 18 See_Comment [Auto mated message] The system which [employer] nerated this result transmit tae reference range : <=65. The reference range was not used to interpr et this result as ludmila l/abnormal. [facility] [id number] 11:20:00 Test Item Value Reference Range Interpretation Comments AST (test code = AST) 19 See_Comment [Auto mated message] The system which [employer] nerated this result transmit tae reference range : <=37. The reference range was not used to interpr et this result as ludmila l/abnormal. [facility] [id number] 11:20:00 Test Item Value Reference Range Interpretation Comments Alk Phos (test code = Alk Phos) 78 39-136 [facility] CenterannATRIUM [id number] 11:20:00 Test Item Value Reference Range Interpretation Comments Bili Total (test code = Bili Total) 1.2 0.2-1.3 [facility]2020-11-10 11:20:00 Test Item Value Reference Range Interpretation Comments AGAP (test code = AGAP) 14.8 10.0-20.0 [facility]2020-11-10 11:20:00 Test Item Value Reference Range Interpretation Comments B/C Ratio (test code = B/C Ratio) 10 1 6-25 [facility]2020-11-10 11:20:00 Test Item Value Reference Range Interpretation Comments Globulin (test code = Globulin) 4.0 2.7-4.2 [facility]2020-11-10 11:20:00 Test Item Value Reference Range Interpretation Comments A/G Ratio (test code = A/G Ratio) 0.8 1 0.7-1.6 [place] 735340-11-10 11:20:00 Test Item Value Reference Range Interpretation Comments eGFR (test code = eGFR) 116 [facility]2020-11-10 11:20:00 Test Item Value Reference Range Interpretation Comments Lipase Lvl (test code = Lipase Lvl) 337 73-393 [id number] 10:56:00 Test Item Value Reference Range Interpretation Comments Coronavirus (COVID-19) Not Detected MINERVA (test code = (12/17/19 4:56 AM) Coronavirus (COVID-19) MINERVA) [place] 573670-11-10 10:56:00 Test Item Value Reference Range Interpretation Comments Coronavirus (COVID-19) Not Detected MINERVA (test code = (12/17/19 4:56 AM) Coronavirus (COVID-19) MINERVA) [place] 7[address]-11-10 10:56:00 Test Item Value Reference Range Interpretation Comments Coronavirus (COVID-19) Not Detected MINERVA (test code = (12/17/19 4:56 AM) Coronavirus (COVID-19) MINERVA) [place] [address]-11-10 10:56:00 Test Item Value Reference Range Interpretation Comments Coronavirus (COVID-19) Not Detected MINERVA (test code = (11/10/20 4:56 AM) Coronavirus (COVID-19) MINERVA) [facility] CenterUmtfmgzAPMJBQRATA9414-23-01 09:38:00 Test Item Value Reference Range Interpretation Comments Eosinophils # (test code 0.2 See_Comment [A utomated message] The = Eosinophils #) system whic h generated this result tra nsmitted reference range : <=0.5. The reference r hermes was not used to int erpret this result as normal/abnormal . [facility] CenterGxxsyzjDGPRYSDVSS7806-17-48 09:38:00 Test Item Value Reference Range Interpretation Comments WBC (test code = WBC) 5.9 3.7-10.4 [facility] [id number] 09:38:00 Test Item Value Reference Range Interpretation Comments RBC (test code = RBC) 3.45 4.70-6.10 [facility] CenterXqcynypXTDTVQWNWO5253-91-04 09:38:00 Test Item Value Reference Range Interpretation Comments Hgb (test code = Hgb) 11.1 14.0-18.0 [facility] CenterIoceddgKWOJOMQTZC5866-12-97 09:38:00 Test Item Value Reference Range Interpretation Comments Hct (test code = Hct) 31.5 42.0-54.0 [facility] CenterUpvnctaEGPMMXUVPM4730-39-14 09:38:00 Test Item Value Reference Range Interpretation Comments MCV (test code = MCV) 91.3 80.0-94.0 [facility] CenterEfgmiqeXOSBEZCCLW4342-89-50 09:38:00 Test Item Value Reference Range Interpretation Comments MCH (test code = MCH) 32.2 pg 27.0-31.0 [facility] CenterZidhxwbBRICJWVBDP5744-42-59 09:38:00 Test Item Value Reference Range Interpretation Comments MCHC (test code = MCHC) 35.2 32.0-36.0 [facility] CenterGmdldjjTFWTCCUTDM0607-60-83 09:38:00 Test Item Value Reference Range Interpretation Comments RDW (test code = RDW) 13.2 11.5-14.5 [facility] CenterOmfzvdlIFHEXUYOHZ4756-31-73 09:38:00 Test Item Value Reference Range Interpretation Comments Platelet (test code = Platelet) 147 133-450 [facility] CenterYihktpwVWAKAAQGSE9304-15-55 09:38:00 Test Item Value Reference Range Interpretation Comments MPV (test code = MPV) 9.4 7.4-10.4 [place] 186100-11-09 09:38:00 Test Item Value Reference Range Interpretation Comments Trig (test code = Trig) 57 [place] 186100-11-09 09:38:00 Test Item Value Reference Range Interpretation Comments Chol (test code = Chol) 89 [place] 186100-11-09 09:38:00 Test Item Value Reference Range Interpretation Comments HDL (test code = HDL) 71 [place] 186100-11-09 09:38:00 Test Item Value Reference Range Interpretation Comments CHD Risk (test code = CHD Risk) 1.25 1 4.00-7.30 [place] 186100-11-09 09:38:00 Test Item Value Reference Range Interpretation Comments LDL (Calculated) (test code = LDL 7 (Calculated)) [place] 186100-11-09 09:38:00 Test Item Value Reference Range Interpretation Comments VLDL (test code = VLDL) 11 1 [place] 735340-11-09 09:38:00 Test Item Value Reference Range Interpretation Comments Glucose Lvl (test code = Glucose Lvl) 86 70-99 [place] 735340-11-09 09:38:00 Test Item Value Reference Range Interpretation Comments BUN (test code = BUN) 6 7-22 [place] 735340-11-09 09:38:00 Test Item Value Reference Range Interpretation Comments Creatinine Lvl (test code = Creatinine 0.77 0.50-1.40 Lvl) [facility]2020-11-09 09:38:00 Test Item Value Reference Range Interpretation Comments Sodium Lvl (test code = Sodium Lvl) 142 135-145 [place] 735340-11-09 09:38:00 Test Item Value Reference Range Interpretation Comments Potassium Lvl (test code = Potassium 3.2 3.5-5.1 Lvl) [place] 735340-11-09 09:38:00 Test Item Value Reference Range Interpretation Comments Chloride Lvl (test code = Chloride Lvl) 109 95-109 [place] 735340-11-09 09:38:00 Test Item Value Reference Range Interpretation Comments CO2 (test code = CO2) 29 24-32 [place] 735340-11-09 09:38:00 Test Item Value Reference Range Interpretation Comments AGAP (test code = AGAP) 7.2 10.0-20.0 [facility]2020-11-09 09:38:00 Test Item Value Reference Range Interpretation Comments Calcium Lvl (test code = Calcium Lvl) 8.2 8.5-10.5 [place] 735340-11-09 09:38:00 Test Item Value Reference Range Interpretation Comments B/C Ratio (test code = B/C Ratio) 8 1 6-25 [place] 735340-11-09 09:38:00 Test Item Value Reference Range Interpretation Comments Total Protein (test code = Total 6.6 6.4-8.4 Protein) [facility]2020-11-09 09:38:00 Test Item Value Reference Range Interpretation Comments Albumin Lvl (test code = Albumin Lvl) 3.0 3.5-5.0 [place] 735340-11-09 09:38:00 Test Item Value Reference Range Interpretation Comments Globulin (test code = Globulin) 3.6 2.7-4.2 [place] 735340-11-09 09:38:00 Test Item Value Reference Range Interpretation Comments A/G Ratio (test code = A/G Ratio) 0.8 1 0.7-1.6 [place] 735340-11-09 09:38:00 Test Item Value Reference Range Interpretation Comments ALT (test code = ALT) 18 See_Comment [Auto mated message] The system which ge nerated this result transmit tae reference range : <=65. The reference range was not used to interpr et this result as ludmila l/abnormal. [facility] [id number] 09:38:00 Test Item Value Reference Range Interpretation Comments AST (test code = AST) 22 See_Comment [Auto mated message] The system which ge nerated this result transmit tae reference range : <=37. The reference range was not used to interpr et this result as ludmila l/abnormal. [facility] [id number] 09:38:00 Test Item Value Reference Range Interpretation Comments Alk Phos (test code = Alk Phos) 62 39-136 [facility] [id number] 09:38:00 Test Item Value Reference Range Interpretation Comments Bili Total (test code = Bili Total) 1.4 0.2-1.3 [place] 735340-11-09 09:38:00 Test Item Value Reference Range Interpretation Comments eGFR (test code = eGFR) 118 [place] 735340-11-09 09:38:00 Test Item Value Reference Range Interpretation Comments Lipase Lvl (test code = Lipase Lvl) 533 92-393 [place] [address]-11-09 09:38:00 Test Item Value Reference Range Interpretation Comments Segs (test code = Segs) 66.3 45.0-75.0 [place] 044740-11-09 09:38:00 Test Item Value Reference Range Interpretation Comments Lymphocytes (test code = Lymphocytes) 20.3 20.0-40.0 [place] [address]-11-09 09:38:00 Test Item Value Reference Range Interpretation Comments Monocytes (test code = Monocytes) 8.7 2.0-12.0 [facility] CenterVbdldlqFUYFKWHQJS6919-75-42 09:38:00 Test Item Value Reference Range Interpretation Comments Eosinophils (test code = 4.2 See_Comment [A utomated message] The Eosinophils) system which ge nerated this result tra nsmitted reference range : <=4.0. The reference r hermes was not used to int erpret this result as normal/abnormal . [facility] CenterWgpurdfAZTANZALAZ4350-66-66 09:38:00 Test Item Value Reference Range Interpretation Comments Basophils (test code = 0.5 See_Comment [Aut omated message] The Basophils) system which ge nerated this result tra nsmitted reference range : <=1.0. The reference r hermes was not used to int erpret this result as normal/abnormal . [facility] CenterLpldbjnHARENAUHDE0110-14-21 09:38:00 Test Item Value Reference Range Interpretation Comments Neutrophils # (test code = Neutrophils 3.9 1.5-8.1 #) [place] 044740-11-09 09:38:00 Test Item Value Reference Range Interpretation Comments Lymphocytes # (test code = Lymphocytes 1.2 1.0-5.5 #) [place] 044740-11-09 09:38:00 Test Item Value Reference Range Interpretation Comments Monocytes # (test code 0.5 See_Comment [Aut omated message] The = Monocytes #) system which generated this result tra nsmitted reference range : <=0.8. The reference r hermes was not used to int erpret this result as normal/abnormal . [facility] CenterFnmpwdmTDTNVVSBXF7489-81-12 09:38:00 Test Item Value Reference Range Interpretation Comments Eosinophils # (test code 0.2 See_Comment [A utomated message] The = Eosinophils #) system whic h generated this result tra nsmitted reference range : <=0.5. The reference r hermes was not used to int erpret this result as normal/abnormal . [facility]LnnpvffVYBLKSEVKM0342-20-[facility] 09:38:00 Test Item Value Reference Range Interpretation Comments WBC (test code = WBC) 5.9 3.7-10.4 [facility] CenterUjyxipbRQTYYWZHVF8842-11-35 09:38:00 Test Item Value Reference Range Interpretation Comments RBC (test code = RBC) 3.45 4.70-6.10 [facility] CenterRxfqwktSHCHVKYVVO5087-92-12 09:38:00 Test Item Value Reference Range Interpretation Comments Hgb (test code = Hgb) 11.1 14.0-18.0 [facility] CenterPdalrzmXQYGPZCWRE8825-86-79 09:38:00 Test Item Value Reference Range Interpretation Comments Hct (test code = Hct) 31.5 42.0-54.0 [facility] CenterZgwankbXDAKCPQIHJ5358-54-28 09:38:00 Test Item Value Reference Range Interpretation Comments MCV (test code = MCV) 91.3 80.0-94.0 [facility] CenterBuhowjjVSNDZXMIOY4124-38-72 09:38:00 Test Item Value Reference Range Interpretation Comments MCH (test code = MCH) 32.2 pg 27.0-31.0 [facility] CenterEyzkbinFUOCHYSHRA0703-92-21 09:38:00 Test Item Value Reference Range Interpretation Comments MCHC (test code = MCHC) 35.2 32.0-36.0 [facility] CenterEyjbwgoRCBMEHCDJT0546-40-96 09:38:00 Test Item Value Reference Range Interpretation Comments RDW (test code = RDW) 13.2 11.5-14.5 [facility] CenterVuxekuuCEVSGRJLTK7091-47-21 09:38:00 Test Item Value Reference Range Interpretation Comments Platelet (test code = Platelet) 147 133-450 [facility] CenterWomafgnMHYJYAINNZ0329-96-99 09:38:00 Test Item Value Reference Range Interpretation Comments MPV (test code = MPV) 9.4 7.4-10.4 [facility]ZkwqzqlWOVRMQ1320-09-21 09:38:00 Test Item Value Reference Range Interpretation Comments Trig (test code = Trig) 57 [facility] CentennialLtslaklGPCZOB8633-61-53 09:38:00 Test Item Value Reference Range Interpretation Comments Chol (test code = Chol) 89 [facility] CentennialNijssfsVEXEDJ5058-19-32 09:38:00 Test Item Value Reference Range Interpretation Comments HDL (test code = HDL) 71 [facility] CentennialBlvwxhyTKSUGU2951-99-40 09:38:00 Test Item Value Reference Range Interpretation Comments CHD Risk (test code = CHD Risk) 1.25 1 4.00-7.30 [place] [address]-11-09 09:38:00 Test Item Value Reference Range Interpretation Comments LDL (Calculated) (test code = LDL 7 (Calculated)) [place] [address]-11-09 09:38:00 Test Item Value Reference Range Interpretation Comments VLDL (test code = VLDL) 11 1 [facility]2020-11-09 09:38:00 Test Item Value Reference Range Interpretation Comments Glucose Lvl (test code = Glucose Lvl) 86 70-99 [facility]2020-11-09 09:38:00 Test Item Value Reference Range Interpretation Comments BUN (test code = BUN) 6 7-22 [facility]2020-11-09 09:38:00 Test Item Value Reference Range Interpretation Comments Creatinine Lvl (test code = Creatinine 0.77 0.50-1.40 Lvl) [facility]2020-11-09 09:38:00 Test Item Value Reference Range Interpretation Comments Sodium Lvl (test code = Sodium Lvl) 142 135-145 [facility]2020-11-09 09:38:00 Test Item Value Reference Range Interpretation Comments Potassium Lvl (test code = Potassium 3.2 3.5-5.1 Lvl) [facility]2020-11-09 09:38:00 Test Item Value Reference Range Interpretation Comments Chloride Lvl (test code = Chloride Lvl) 109 95-109 [facility]2020-11-09 09:38:00 Test Item Value Reference Range Interpretation Comments CO2 (test code = CO2) 29 24-32 [place] 735340-11-09 09:38:00 Test Item Value Reference Range Interpretation Comments AGAP (test code = AGAP) 7.2 10.0-20.0 [place] 735340-11-09 09:38:00 Test Item Value Reference Range Interpretation Comments Calcium Lvl (test code = Calcium Lvl) 8.2 8.5-10.5 [facility]2020-11-09 09:38:00 Test Item Value Reference Range Interpretation Comments B/C Ratio (test code = B/C Ratio) 8 1 6-25 [place] 735340-11-09 09:38:00 Test Item Value Reference Range Interpretation Comments Total Protein (test code = Total 6.6 6.4-8.4 Protein) [facility]2020-11-09 09:38:00 Test Item Value Reference Range Interpretation Comments Albumin Lvl (test code = Albumin Lvl) 3.0 3.5-5.0 [place] 735340-11-09 09:38:00 Test Item Value Reference Range Interpretation Comments Globulin (test code = Globulin) 3.6 2.7-4.2 [facility]2020-11-09 09:38:00 Test Item Value Reference Range Interpretation Comments A/G Ratio (test code = A/G Ratio) 0.8 1 0.7-1.6 [facility]2020-11-09 09:38:00 Test Item Value Reference Range Interpretation Comments ALT (test code = ALT) 18 See_Comment [Auto mated message] The system which ge nerated this result transmit tae reference range : <=65. The reference range was not used to interpr et this result as ludmila l/abnormal. [facility]2020-11-09 09:38:00 Test Item Value Reference Range Interpretation Comments AST (test code = AST) 22 See_Comment [Auto mated message] The system which ge nerated this result transmit tae reference range : <=37. The reference range was not used to interpr et this result as ludmila l/abnormal. [facility]2020-11-09 09:38:00 Test Item Value Reference Range Interpretation Comments Alk Phos (test code = Alk Phos) 62 39-136 [facility]WHO[facility] NZKZK7918-02-11 09:38:00 Test Item Value Reference Range Interpretation Comments Bili Total (test code = Bili Total) 1.4 0.2-1.3 [facility]2020-11-09 09:38:00 Test Item Value Reference Range Interpretation Comments eGFR (test code = eGFR) 118 [facility]2020-11-09 09:38:00 Test Item Value Reference Range Interpretation Comments Lipase Lvl (test code = Lipase Lvl) 533 54-393 [place] 044740-11-09 09:38:00 Test Item Value Reference Range Interpretation Comments Segs (test code = Segs) 66.3 45.0-75.0 [place] 044740-11-09 09:38:00 Test Item Value Reference Range Interpretation Comments Lymphocytes (test code = Lymphocytes) 20.3 20.0-40.0 [place] [address]-11-09 09:38:00 Test Item Value Reference Range Interpretation Comments Monocytes (test code = Monocytes) 8.7 2.0-12.0 [place] 044740-11-09 09:38:00 Test Item Value Reference Range Interpretation Comments Eosinophils (test code = 4.2 See_Comment [A utomated message] The Eosinophils) system which ge nerated this result tra nsmitted reference range : <=4.0. The reference r hermes was not used to int erpret this result as normal/abnormal . [facility] CenterXorluigKPZLKKITPX6538-89-15 09:38:00 Test Item Value Reference Range Interpretation Comments Basophils (test code = 0.5 See_Comment [Aut omated message] The Basophils) system which ge nerated this result tra nsmitted reference range : <=1.0. The reference r hermes was not used to int erpret this result as normal/abnormal . [place] 044740-11-09 09:38:00 Test Item Value Reference Range Interpretation Comments Neutrophils # (test code = Neutrophils 3.9 1.5-8.1 #) [place] 044740-11-09 09:38:00 Test Item Value Reference Range Interpretation Comments Lymphocytes # (test code = Lymphocytes 1.2 1.0-5.5 #) [place] [address]-11-09 09:38:00 Test Item Value Reference Range Interpretation Comments Monocytes # (test code 0.5 See_Comment [Aut omated message] The = Monocytes #) system which generated this result tra nsmitted reference range : <=0.8. The reference r hermes was not used to int erpret this result as normal/abnormal . [facility] CenterRjxtaczRYSMMZNEZW8511-48-09 09:38:00 Test Item Value Reference Range Interpretation Comments Eosinophils # (test code 0.2 See_Comment [A utomated message] The = Eosinophils #) system whic h generated this result tra nsmitted reference range : <=0.5. The reference r hermes was not used to int erpret this result as normal/abnormal . [facility] CenterMjqsqgqAIEQWASSGD8107-57-33 09:38:00 Test Item Value Reference Range Interpretation Comments WBC (test code = WBC) 5.9 3.7-10.4 [facility] CenterRzdejgeZTOKQIEFPI3598-67-66 09:38:00 Test Item Value Reference Range Interpretation Comments RBC (test code = RBC) 3.45 4.70-6.10 [facility] CenterMwcefdePBQWKOEOZB3689-13-77 09:38:00 Test Item Value Reference Range Interpretation Comments Hgb (test code = Hgb) 11.1 14.0-18.0 [facility] CenterOsnwxfwWBKYPOIKLT6076-35-22 09:38:00 Test Item Value Reference Range Interpretation Comments Hct (test code = Hct) 31.5 42.0-54.0 [facility] CenterJzjyrnpPUJUNOSPJN9168-23-50 09:38:00 Test Item Value Reference Range Interpretation Comments MCV (test code = MCV) 91.3 80.0-94.0 [facility] CenterJylpyulZYESKGTRHO5602-18-54 09:38:00 Test Item Value Reference Range Interpretation Comments MCH (test code = MCH) 32.2 pg 27.0-31.0 [facility] CenterGisezziETEFJGXJYP1521-70-01 09:38:00 Test Item Value Reference Range Interpretation Comments MCHC (test code = MCHC) 35.2 32.0-36.0 [facility] CenterZrnzrneEVVBMEFQPK3993-25-37 09:38:00 Test Item Value Reference Range Interpretation Comments RDW (test code = RDW) 13.2 11.5-14.5 [facility] CenterWlkekyxSOCWLKWCOO9241-17-28 09:38:00 Test Item Value Reference Range Interpretation Comments Platelet (test code = Platelet) 147 133-450 [facility] CenterTkeonaqZEEGURCDOB6101-54-45 09:38:00 Test Item Value Reference Range Interpretation Comments MPV (test code = MPV) 9.4 7.4-10.4 [place] [address]-11-09 09:38:00 Test Item Value Reference Range Interpretation Comments Trig (test code = Trig) 57 [facility]ennialEldyajgYYMWRZ8282-73-37 09:38:00 Test Item Value Reference Range Interpretation Comments Chol (test code = Chol) 89 [place] 186100-11-09 09:38:00 Test Item Value Reference Range Interpretation Comments HDL (test code = HDL) 71 [place] [address]-11-09 09:38:00 Test Item Value Reference Range Interpretation Comments CHD Risk (test code = CHD Risk) 1.25 1 4.00-7.30 [place] [address]-11-09 09:38:00 Test Item Value Reference Range Interpretation Comments LDL (Calculated) (test code = LDL 7 (Calculated)) [place] [address]-11-09 09:38:00 Test Item Value Reference Range Interpretation Comments VLDL (test code = VLDL) 11 1 [place] 735340-11-09 09:38:00 Test Item Value Reference Range Interpretation Comments Glucose Lvl (test code = Glucose Lvl) 86 70-99 [place] 735340-11-09 09:38:00 Test Item Value Reference Range Interpretation Comments BUN (test code = BUN) 6 7-22 [facility]2020-11-09 09:38:00 Test Item Value Reference Range Interpretation Comments Creatinine Lvl (test code = Creatinine 0.77 0.50-1.40 Lvl) [place] 735340-11-09 09:38:00 Test Item Value Reference Range Interpretation Comments Sodium Lvl (test code = Sodium Lvl) 142 135-145 [place] 735340-11-09 09:38:00 Test Item Value Reference Range Interpretation Comments Potassium Lvl (test code = Potassium 3.2 3.5-5.1 Lvl) [facility]2020-11-09 09:38:00 Test Item Value Reference Range Interpretation Comments Chloride Lvl (test code = Chloride Lvl) 109 95-109 [place] 735340-11-09 09:38:00 Test Item Value Reference Range Interpretation Comments CO2 (test code = CO2) 29 24-32 [place] 735340-11-09 09:38:00 Test Item Value Reference Range Interpretation Comments AGAP (test code = AGAP) 7.2 10.0-20.0 [place] 735340-11-09 09:38:00 Test Item Value Reference Range Interpretation Comments Calcium Lvl (test code = Calcium Lvl) 8.2 8.5-10.5 [place] 735340-11-09 09:38:00 Test Item Value Reference Range Interpretation Comments B/C Ratio (test code = B/C Ratio) 8 1 6-25 [place] [address]-11-09 09:38:00 Test Item Value Reference Range Interpretation Comments Total Protein (test code = Total 6.6 6.4-8.4 Protein) [place] 735340-11-09 09:38:00 Test Item Value Reference Range Interpretation Comments Albumin Lvl (test code = Albumin Lvl) 3.0 3.5-5.0 [place] 735340-11-09 09:38:00 Test Item Value Reference Range Interpretation Comments Globulin (test code = Globulin) 3.6 2.7-4.2 [place] 735340-11-09 09:38:00 Test Item Value Reference Range Interpretation Comments A/G Ratio (test code = A/G Ratio) 0.8 1 0.7-1.6 [facility]2020-11-09 09:38:00 Test Item Value Reference Range Interpretation Comments ALT (test code = ALT) 18 See_Comment [Auto mated message] The system which ge nerated this result transmit tae reference range : <=65. The reference range was not used to interpr et this result as ludmila l/abnormal. [facility]WHO[facility] [id number] 09:38:00 Test Item Value Reference Range Interpretation Comments AST (test code = AST) 22 See_Comment [Auto mated message] The system which ge nerated this result transmit tae reference range : <=37. The reference range was not used to interpr et this result as ludmila l/abnormal. [facility]WHO[facility] [id number] 09:38:00 Test Item Value Reference Range Interpretation Comments Alk Phos (test code = Alk Phos) 62 39-136 [facility]WHO[facility] GNGUC3640-10-19 09:38:00 Test Item Value Reference Range Interpretation Comments Bili Total (test code = Bili Total) 1.4 0.2-1.3 [place] 735340-11-09 09:38:00 Test Item Value Reference Range Interpretation Comments eGFR (test code = eGFR) 118 [place] 735340-11-09 09:38:00 Test Item Value Reference Range Interpretation Comments Lipase Lvl (test code = Lipase Lvl) 533 00-393 [place] 044740-11-09 09:38:00 Test Item Value Reference Range Interpretation Comments Segs (test code = Segs) 66.3 45.0-75.0 [place] 044740-11-09 09:38:00 Test Item Value Reference Range Interpretation Comments Lymphocytes (test code = Lymphocytes) 20.3 20.0-40.0 [place] [address]-11-09 09:38:00 Test Item Value Reference Range Interpretation Comments Monocytes (test code = Monocytes) 8.7 2.0-12.0 [place] [address]-11-09 09:38:00 Test Item Value Reference Range Interpretation Comments Eosinophils (test code = 4.2 See_Comment [A utomated message] The Eosinophils) system which ge nerated this result tra nsmitted reference range : <=4.0. The reference r hermes was not used to int erpret this result as normal/abnormal . [place] [address]-11-09 09:38:00 Test Item Value Reference Range Interpretation Comments Basophils (test code = 0.5 See_Comment [Aut omated message] The Basophils) system which ge nerated this result tra nsmitted reference range : <=1.0. The reference r hermes was not used to int erpret this result as normal/abnormal . [place] 044740-11-09 09:38:00 Test Item Value Reference Range Interpretation Comments Neutrophils # (test code = Neutrophils 3.9 1.5-8.1 #) [place] 044740-11-09 09:38:00 Test Item Value Reference Range Interpretation Comments Lymphocytes # (test code = Lymphocytes 1.2 1.0-5.5 #) [place] [address]-11-09 09:38:00 Test Item Value Reference Range Interpretation Comments Monocytes # (test code 0.5 See_Comment [Aut omated message] The = Monocytes #) system which generated this result tra nsmitted reference range : <=0.8. The reference r hermes was not used to int erpret this result as normal/abnormal . [facility] CenterCbalqwwUZXAQDRFJO1465-71-54 09:38:00 Test Item Value Reference Range Interpretation Comments Eosinophils # (test code 0.2 See_Comment [A utomated message] The = Eosinophils #) system whic h generated this result tra nsmitted reference range : <=0.5. The reference r hermes was not used to int erpret this result as normal/abnormal . [facility] CenterOomqfojHBDXASDEHK3768-58-93 09:38:00 Test Item Value Reference Range Interpretation Comments WBC (test code = WBC) 5.9 3.7-10.4 [facility] CenterJbfgrluNTXVOHQZEA5084-20-55 09:38:00 Test Item Value Reference Range Interpretation Comments RBC (test code = RBC) 3.45 4.70-6.10 [facility] CenterEuzbzmpHORDSLNAUG4831-55-95 09:38:00 Test Item Value Reference Range Interpretation Comments Hgb (test code = Hgb) 11.1 14.0-18.0 [facility] CenterHfbtysfRQHWAKCFZG3614-60-97 09:38:00 Test Item Value Reference Range Interpretation Comments Hct (test code = Hct) 31.5 42.0-54.0 [facility] CenterJlacmkaSEUUUSLBGF4980-61-99 09:38:00 Test Item Value Reference Range Interpretation Comments MCV (test code = MCV) 91.3 80.0-94.0 [facility] CenterAljoajiAXXRXRTLMZ7807-20-74 09:38:00 Test Item Value Reference Range Interpretation Comments MCH (test code = MCH) 32.2 pg 27.0-31.0 [facility] CenterSgbwydiMAPBNTTWIW9183-32-54 09:38:00 Test Item Value Reference Range Interpretation Comments MCHC (test code = MCHC) 35.2 32.0-36.0 [facility] CenterJrklklxIWGASWHZAJ8478-52-78 09:38:00 Test Item Value Reference Range Interpretation Comments RDW (test code = RDW) 13.2 11.5-14.5 [facility] CenterJgwehvlDAEAMDKNPF7250-69-63 09:38:00 Test Item Value Reference Range Interpretation Comments Platelet (test code = Platelet) 147 133-450 [place] 044740-11-09 09:38:00 Test Item Value Reference Range Interpretation Comments MPV (test code = MPV) 9.4 7.4-10.4 [place] 186100-11-09 09:38:00 Test Item Value Reference Range Interpretation Comments Trig (test code = Trig) 57 [place] 186100-11-09 09:38:00 Test Item Value Reference Range Interpretation Comments Chol (test code = Chol) 89 [facility]ennialWzfbddlXCUTFH1619-58-27 09:38:00 Test Item Value Reference Range Interpretation Comments HDL (test code = HDL) 71 [place] [address]-11-09 09:38:00 Test Item Value Reference Range Interpretation Comments CHD Risk (test code = CHD Risk) 1.25 1 4.00-7.30 [place] [address]-11-09 09:38:00 Test Item Value Reference Range Interpretation Comments LDL (Calculated) (test code = LDL 7 (Calculated)) [place] 186100-11-09 09:38:00 Test Item Value Reference Range Interpretation Comments VLDL (test code = VLDL) 11 1 [facility]2020-11-09 09:38:00 Test Item Value Reference Range Interpretation Comments Glucose Lvl (test code = Glucose Lvl) 86 70-99 [facility]2020-11-09 09:38:00 Test Item Value Reference Range Interpretation Comments BUN (test code = BUN) 6 7-22 [facility]2020-11-09 09:38:00 Test Item Value Reference Range Interpretation Comments Creatinine Lvl (test code = Creatinine 0.77 0.50-1.40 Lvl) [facility]2020-11-09 09:38:00 Test Item Value Reference Range Interpretation Comments Sodium Lvl (test code = Sodium Lvl) 142 135-145 [place] 735340-11-09 09:38:00 Test Item Value Reference Range Interpretation Comments Potassium Lvl (test code = Potassium 3.2 3.5-5.1 Lvl) [place] 735340-11-09 09:38:00 Test Item Value Reference Range Interpretation Comments Chloride Lvl (test code = Chloride Lvl) 109 95-109 [place] 735340-11-09 09:38:00 Test Item Value Reference Range Interpretation Comments CO2 (test code = CO2) 29 24-32 [facility] [id number] 09:38:00 Test Item Value Reference Range Interpretation Comments AGAP (test code = AGAP) 7.2 10.0-20.0 [facility]2020-11-09 09:38:00 Test Item Value Reference Range Interpretation Comments Calcium Lvl (test code = Calcium Lvl) 8.2 8.5-10.5 [facility] [id number] 09:38:00 Test Item Value Reference Range Interpretation Comments B/C Ratio (test code = B/C Ratio) 8 1 6-25 [facility] [id number] 09:38:00 Test Item Value Reference Range Interpretation Comments Total Protein (test code = Total 6.6 6.4-8.4 Protein) [facility] [id number] 09:38:00 Test Item Value Reference Range Interpretation Comments Albumin Lvl (test code = Albumin Lvl) 3.0 3.5-5.0 [facility] [id number] 09:38:00 Test Item Value Reference Range Interpretation Comments Globulin (test code = Globulin) 3.6 2.7-4.2 [facility] [id number] 09:38:00 Test Item Value Reference Range Interpretation Comments A/G Ratio (test code = A/G Ratio) 0.8 1 0.7-1.6 [facility] [id number] 09:38:00 Test Item Value Reference Range Interpretation Comments ALT (test code = ALT) 18 See_Comment [Auto mated message] The system which ge nerated this result transmit tae reference range : <=65. The reference range was not used to interpr et this result as ludmila l/abnormal. [facility] [id number] 09:38:00 Test Item Value Reference Range Interpretation Comments AST (test code = AST) 22 See_Comment [Auto mated message] The system which ge nerated this result transmit tae reference range : <=37. The reference range was not used to interpr et this result as ludmila l/abnormal. [facility] [id number] 09:38:00 Test Item Value Reference Range Interpretation Comments Alk Phos (test code = Alk Phos) 62 39-136 [place] 735340-11-09 09:38:00 Test Item Value Reference Range Interpretation Comments Bili Total (test code = Bili Total) 1.4 0.2-1.3 [place] 735340-11-09 09:38:00 Test Item Value Reference Range Interpretation Comments eGFR (test code = eGFR) 118 [place] 735340-11-09 09:38:00 Test Item Value Reference Range Interpretation Comments Lipase Lvl (test code = Lipase Lvl) 533 73-393 [place] 044740-11-09 09:38:00 Test Item Value Reference Range Interpretation Comments Segs (test code = Segs) 66.3 45.0-75.0 [place] [address]-11-09 09:38:00 Test Item Value Reference Range Interpretation Comments Lymphocytes (test code = Lymphocytes) 20.3 20.0-40.0 [place] [address]-11-09 09:38:00 Test Item Value Reference Range Interpretation Comments Monocytes (test code = Monocytes) 8.7 2.0-12.0 [place] [address]-11-09 09:38:00 Test Item Value Reference Range Interpretation Comments Eosinophils (test code = 4.2 See_Comment [A utomated message] The Eosinophils) system which ge nerated this result tra nsmitted reference range : <=4.0. The reference r hermes was not used to int erpret this result as normal/abnormal . [facility] CenterLekzrfdDMVGWIDKIJ1253-89-04 09:38:00 Test Item Value Reference Range Interpretation Comments Basophils (test code = 0.5 See_Comment [Aut omated message] The Basophils) system which ge nerated this result tra nsmitted reference range : <=1.0. The reference r hermes was not used to int erpret this result as normal/abnormal . [place] 044740-11-09 09:38:00 Test Item Value Reference Range Interpretation Comments Neutrophils # (test code = Neutrophils 3.9 1.5-8.1 #) [place] [address]-11-09 09:38:00 Test Item Value Reference Range Interpretation Comments Lymphocytes # (test code = Lymphocytes 1.2 1.0-5.5 #) [place] 044740-11-09 09:38:00 Test Item Value Reference Range Interpretation Comments Monocytes # (test code 0.5 See_Comment [Aut omated message] The = Monocytes #) system which generated this result tra nsmitted reference range : <=0.8. The reference r hermes was not used to int erpret this result as normal/abnormal . [facility] AND [id number] 22:18:00 Test Item Value Reference Range Interpretation Comments UA Color (test code = Yellow *NA*(12/15/19 UA Color) 4:18 PM) [facility] AND [id number] 22:18:00 Test Item Value Reference Range Interpretation Comments UA Turbidity (test code = Clear (12/15/19 4:18 UA Turbidity) PM) [facility] AND [id number] 22:18:00 Test Item Value Reference Range Interpretation Comments UA pH (test code = UA pH) 6.0 1 5.0-8.0 [facility] AND [id number] 22:18:00 Test Item Value Reference Range Interpretation Comments UA Protein (test code = UA Negative mg/dL Protein) [facility] AND [id number] 22:18:00 Test Item Value Reference Range Interpretation Comments UA Glucose (test code = UA Negative mg/dL Glucose) [facility] AND [id number] 22:18:00 Test Item Value Reference Range Interpretation Comments UA Ketones (test code = UA Trace mg/dL Ketones) [facility] AND [id number] 22:18:00 Test Item Value Reference Range Interpretation Comments UA Bili (test code = Negative *NA*(12/15/19 UA Bili) 4:18 PM) [facility] AND [id number] 22:18:00 Test Item Value Reference Range Interpretation Comments UA Blood (test code = Negative (12/15/19 4:18 UA Blood) PM) [facility] AND [id number] 22:18:00 Test Item Value Reference Range Interpretation Comments UA Urobilinogen (test code = UA 4.0 0.1-1.0 Urobilinogen) [facility] AND [id number] 22:18:00 Test Item Value Reference Range Interpretation Comments UA Nitrite (test code Negative (12/15/19 4:18 = [facility] Nitrite) PM) [facility] [id number] 22:18:00 Test Item Value Reference Range Interpretation Comments UA Leuk Est (test Negative (12/15/19 4:18 code = UA Leuk Est) PM) [facility] [id number] 22:18:00 Test Item Value Reference Range Interpretation Comments UA WBC (test code = 1 See_Comment [Automa tae message] The UA WBC) system which ge nerated this result transmit tae reference range : <=5. The reference range was not used to interpr et this result as ludmila l/abnormal. [facility] [id number] 22:18:00 Test Item Value Reference Range Interpretation Comments UA RBC (test code = 2 See_Comment [Automa tae message] The UA RBC) system which ge nerated this result transmit tae reference range : <=2. The reference range was not used to interpr et this result as ludmila l/abnormal. [facility] [id number] 22:18:00 Test Item Value Reference Range Interpretation Comments UA Sq Epi (test code = UA Sq Epi) None [facility]en [facility] [id number] 22:18:00 Test Item Value Reference Range Interpretation Comments UA Spec Grav (test >=1.050 *ABN*(12/15/19 code = UA Spec Grav) 4:18 PM) [facility] [id number] 22:18:00 Test Item Value Reference Range Interpretation Comments UA Color (test code = Yellow *NA*(12/15/19 UA Color) 4:18 PM) [facility] [id number] 22:18:00 Test Item Value Reference Range Interpretation Comments UA Turbidity (test code = Clear (12/15/19 4:18 UA Turbidity) PM) [facility] [id number] 22:18:00 Test Item Value Reference Range Interpretation Comments UA pH (test code = UA pH) 6.0 1 5.0-8.0 [facility] [id number] 22:18:00 Test Item Value Reference Range Interpretation Comments UA Protein (test code = UA Negative mg/dL Protein) [facility] [id number] 22:18:00 Test Item Value Reference Range Interpretation Comments UA Glucose (test code = UA Negative mg/dL Glucose) [facility] [id number] 22:18:00 Test Item Value Reference Range Interpretation Comments UA Ketones (test code = UA Trace mg/dL Ketones) [facility] [id number] 22:18:00 Test Item Value Reference Range Interpretation Comments UA Bili (test code = Negative *NA*(12/15/19 UA Bili) 4:18 PM) [facility] AND [id number] 22:18:00 Test Item Value Reference Range Interpretation Comments UA Blood (test code = Negative (12/15/19 4:18 UA Blood) PM) [facility] AND [id number] 22:18:00 Test Item Value Reference Range Interpretation Comments UA Urobilinogen (test code = UA 4.0 0.1-1.0 Urobilinogen) [facility] AND [id number] 22:18:00 Test Item Value Reference Range Interpretation Comments UA Nitrite (test code Negative (12/15/19 4:18 = UA Nitrite) PM) [facility] AND [id number] 22:18:00 Test Item Value Reference Range Interpretation Comments UA Leuk Est (test Negative (12/15/19 4:18 code = UA Leuk Est) PM) [facility] AND [id number] 22:18:00 Test Item Value Reference Range Interpretation Comments UA WBC (test code = 1 See_Comment [Automa tae message] The UA WBC) system which ge nerated this result transmit tae reference range : <=5. The reference range was not used to interpr et this result as ludmila l/abnormal. [facility] [id number] 22:18:00 Test Item Value Reference Range Interpretation Comments UA RBC (test code = 2 See_Comment [Automa tae message] The UA RBC) system which ge nerated this result transmit tae reference range : <=2. The reference range was not used to interpr et this result as ludmila l/abnormal. [facility] [id number] 22:18:00 Test Item Value Reference Range Interpretation Comments UA Sq Epi (test code = UA Sq Epi) None Seen [facility] AND [id number] 22:18:00 Test Item Value Reference Range Interpretation Comments UA Spec Grav (test >=1.050 *ABN*(12/15/19 code = UA Spec Grav) 4:18 PM) [facility] [id number] 22:18:00 Test Item Value Reference Range Interpretation Comments UA Color (test code = Yellow *NA*(12/15/19 UA Color) 4:18 PM) [facility] [id number] 22:18:00 Test Item Value Reference Range Interpretation Comments UA Turbidity (test code = Clear (12/15/19 4:18 UA Turbidity) PM) [facility] [id number] 22:18:00 Test Item Value Reference Range Interpretation Comments UA pH (test code = UA pH) 6.0 1 5.0-8.0 [facility] [id number] 22:18:00 Test Item Value Reference Range Interpretation Comments UA Protein (test code = UA Negative mg/dL Protein) [facility] AND [id number] 22:18:00 Test Item Value Reference Range Interpretation Comments UA Glucose (test code = UA Negative mg/dL Glucose) [facility] AND [id number] 22:18:00 Test Item Value Reference Range Interpretation Comments UA Ketones (test code = UA Trace mg/dL Ketones) [facility] [id number] 22:18:00 Test Item Value Reference Range Interpretation Comments UA Bili (test code = Negative *NA*(12/15/19 UA Bili) 4:18 PM) [facility] [id number] 22:18:00 Test Item Value Reference Range Interpretation Comments UA Blood (test code = Negative (12/15/19 4:18 UA Blood) PM) [facility] [id number] 22:18:00 Test Item Value Reference Range Interpretation Comments UA Urobilinogen (test code = UA 4.0 0.1-1.0 Urobilinogen) [facility] [id number] 22:18:00 Test Item Value Reference Range Interpretation Comments UA Nitrite (test code Negative (12/15/19 4:18 = UA Nitrite) PM) [facility] [id number] 22:18:00 Test Item Value Reference Range Interpretation Comments UA Leuk Est (test Negative (12/15/19 4:18 code = UA Leuk Est) PM) [facility] [id number] 22:18:00 Test Item Value Reference Range Interpretation Comments UA WBC (test code = 1 See_Comment [Automa tae message] The UA WBC) system which ge nerated this result transmit tae reference range : <=5. The reference range was not used to interpr et this result as ludmila l/abnormal. [facility] [id number] 22:18:00 Test Item Value Reference Range Interpretation Comments UA RBC (test code = 2 See_Comment [Automa tae message] The UA RBC) system which ge nerated this result transmit tae reference range : <=2. The reference range was not used to interpr et this result as ludmila l/abnormal. [facility] [id number] 22:18:00 Test Item Value Reference Range Interpretation Comments UA Sq Epi (test code = UA Sq Epi) None Seen [facility] AND [id number] 22:18:00 Test Item Value Reference Range Interpretation Comments UA Spec Grav (test >=1.050 *ABN*(12/15/19 code = UA Spec Grav) 4:18 PM) [facility] AND [id number] 22:18:00 Test Item Value Reference Range Interpretation Comments UA Color (test code = Yellow *NA*(12/15/19 UA Color) 4:18 PM) [facility] AND [id number] 22:18:00 Test Item Value Reference Range Interpretation Comments UA Turbidity (test code = Clear (12/15/19 4:18 UA Turbidity) PM) [facility] AND [id number] 22:18:00 Test Item Value Reference Range Interpretation Comments UA pH (test code = UA pH) 6.0 1 5.0-8.0 [facility] AND [id number] 22:18:00 Test Item Value Reference Range Interpretation Comments UA Protein (test code = UA Negative mg/dL Protein) [facility] AND [id number] 22:18:00 Test Item Value Reference Range Interpretation Comments UA Glucose (test code = UA Negative mg/dL Glucose) [facility] AND [id number] 22:18:00 Test Item Value Reference Range Interpretation Comments UA Ketones (test code = UA Trace mg/dL Ketones) [facility] [id number] 22:18:00 Test Item Value Reference Range Interpretation Comments UA Bili (test code = Negative *NA*(12/15/19 UA Bili) 4:18 PM) [facility] [id number] 22:18:00 Test Item Value Reference Range Interpretation Comments UA Blood (test code = Negative (12/15/19 4:18 UA Blood) PM) [facility] [id number] 22:18:00 Test Item Value Reference Range Interpretation Comments UA Urobilinogen (test code = UA 4.0 0.1-1.0 Urobilinogen) [facility] [id number] 22:18:00 Test Item Value Reference Range Interpretation Comments UA Nitrite (test code Negative (12/15/19 4:18 = UA Nitrite) PM) [facility] [id number] 22:18:00 Test Item Value Reference Range Interpretation Comments UA Leuk Est (test Negative (12/15/19 4:18 code = UA Leuk Est) PM) [facility] [id number] 22:18:00 Test Item Value Reference Range Interpretation Comments UA WBC (test code = 1 See_Comment [Automa tae message] The UA WBC) system which ge nerated this result transmit tea reference range : <=5. The reference range was not used to interpr et this result as ludmila l/abnormal. [facility] [id number] 22:18:00 Test Item Value Reference Range Interpretation Comments UA RBC (test code = 2 See_Comment [Automa tea message] The UA RBC) system which ge nerated this result transmit tae reference range : <=2. The reference range was not used to interpr et this result as ludmila l/abnormal. [facility] [id number] 22:18:00 Test Item Value Reference Range Interpretation Comments UA Sq Epi (test code = UA Sq Epi) None [facility]en [facility] [id number] 22:18:00 Test Item Value Reference Range Interpretation Comments UA Spec Grav (test >=1.050 *ABN*(11/8/20 code = UA Spec Grav) 4:18 PM) [facility]2020-11-08 17:13:00 Test Item Value Reference Range Interpretation Comments Glucose Lvl (test code = Glucose Lvl) 135 70-99 [place] 735340-11-08 17:13:00 Test Item Value Reference Range Interpretation Comments BUN (test code = BUN) 6 7-22 [place] [address]-11-08 17:13:00 Test Item Value Reference Range Interpretation Comments Creatinine Lvl (test code = Creatinine 0.87 0.50-1.40 Lvl) [place] [address]-11-08 17:13:00 Test Item Value Reference Range Interpretation Comments Sodium Lvl (test code = Sodium Lvl) 140 135-145 [place] 735340-11-08 17:13:00 Test Item Value Reference Range Interpretation Comments Potassium Lvl (test code = Potassium 3.1 3.5-5.1 Lvl) [place] 735340-11-08 17:13:00 Test Item Value Reference Range Interpretation Comments Chloride Lvl (test code = Chloride Lvl) 104 95-109 [place] 735340-11-08 17:13:00 Test Item Value Reference Range Interpretation Comments CO2 (test code = CO2) 30 24-32 [place] 735340-11-08 17:13:00 Test Item Value Reference Range Interpretation Comments Calcium Lvl (test code = Calcium Lvl) 8.5 8.5-10.5 [place] 735340-11-08 17:13:00 Test Item Value Reference Range Interpretation Comments Total Protein (test code = Total 8.1 6.4-8.4 Protein) [place] 735340-11-08 17:13:00 Test Item Value Reference Range Interpretation Comments Albumin Lvl (test code = Albumin Lvl) 3.7 3.5-5.0 [place] 735340-11-08 17:13:00 Test Item Value Reference Range Interpretation Comments ALT (test code = ALT) 19 See_Comment [Auto mated message] The system which ge nerated this result transmit tae reference range : <=65. The reference range was not used to interpr et this result as ludmila l/abnormal. [place] 735340-11-08 17:13:00 Test Item Value Reference Range Interpretation Comments AST (test code = AST) 21 See_Comment [Auto mated message] The system which ge nerated this result transmit tae reference range : <=37. The reference range was not used to interpr et this result as ludmila l/abnormal. [facility]2020-11-08 17:13:00 Test Item Value Reference Range Interpretation Comments Alk Phos (test code = Alk Phos) 69 39-136 [facility]2020-11-08 17:13:00 Test Item Value Reference Range Interpretation Comments Bili Total (test code = Bili Total) 1.5 0.2-1.3 [place] 735340-11-08 17:13:00 Test Item Value Reference Range Interpretation Comments AGAP (test code = AGAP) 9.1 10.0-20.0 [place] 735340-11-08 17:13:00 Test Item Value Reference Range Interpretation Comments B/C Ratio (test code = B/C Ratio) 7 1 6-25 [place] [address]-11-08 17:13:00 Test Item Value Reference Range Interpretation Comments Globulin (test code = Globulin) 4.4 2.7-4.2 [place] 735340-11-08 17:13:00 Test Item Value Reference Range Interpretation Comments A/G Ratio (test code = A/G Ratio) 0.8 1 0.7-1.6 [place] [address]-11-08 17:13:00 Test Item Value Reference Range Interpretation Comments eGFR (test code = eGFR) 112 [place] 735340-11-08 17:13:00 Test Item Value Reference Range Interpretation Comments Lipase Lvl (test code = Lipase Lvl) 641 73393 [facility] CenterNdqzlvfXZYAXZTEDX5152-50-83 17:13:00 Test Item Value Reference Range Interpretation Comments WBC (test code = WBC) 7.0 3.7-10.4 [place] 044740-11-08 17:13:00 Test Item Value Reference Range Interpretation Comments RBC (test code = RBC) 4.00 4.70-6.10 [place] [address]-11-08 17:13:00 Test Item Value Reference Range Interpretation Comments Hgb (test code = Hgb) 12.8 14.0-18.0 [place] 044740-11-08 17:13:00 Test Item Value Reference Range Interpretation Comments Hct (test code = Hct) 36.9 42.0-54.0 [place] 044740-11-08 17:13:00 Test Item Value Reference Range Interpretation Comments MCV (test code = MCV) 92.4 80.0-94.0 [place] 044740-11-08 17:13:00 Test Item Value Reference Range Interpretation Comments MCH (test code = MCH) 31.9 pg 27.0-31.0 [place] [address]-11-08 17:13:00 Test Item Value Reference Range Interpretation Comments MCHC (test code = MCHC) 34.5 32.0-36.0 [facility] CenterPldrcvgOCCFFVLIXK9066-30-89 17:13:00 Test Item Value Reference Range Interpretation Comments RDW (test code = RDW) 13.0 11.5-14.5 [place] 044740-11-08 17:13:00 Test Item Value Reference Range Interpretation Comments Platelet (test code = Platelet) 196 133-450 [facility] CenterQjmcjlzHFMJLTLYUL7982-66-21 17:13:00 Test Item Value Reference Range Interpretation Comments MPV (test code = MPV) 9.4 7.4-10.4 [facility] CenterSpkqrdfQIGPJWKTXO4982-43-70 17:13:00 Test Item Value Reference Range Interpretation Comments Segs (test code = Segs) 80.4 45.0-75.0 [facility] CenterQlusxdrQKKKLXMYOG9748-33-88 17:13:00 Test Item Value Reference Range Interpretation Comments Lymphocytes (test code = Lymphocytes) 11.0 20.0-40.0 [place] 044740-11-08 17:13:00 Test Item Value Reference Range Interpretation Comments Monocytes (test code = Monocytes) 5.6 2.0-12.0 [place] [address]-11-08 17:13:00 Test Item Value Reference Range Interpretation Comments Eosinophils (test code = 2.5 See_Comment [A utomated message] The Eosinophils) system which ge nerated this result tra nsmitted reference range : <=4.0. The reference r hermes was not used to int erpret this result as normal/abnormal . [facility] CenterJfubvxeSEHXZAWCOQ2421-39-66 17:13:00 Test Item Value Reference Range Interpretation Comments Basophils (test code = 0.5 See_Comment [Aut omated message] The Basophils) system which ge nerated this result tra nsmitted reference range : <=1.0. The reference r hermes was not used to int erpret this result as normal/abnormal . [place] 044740-11-08 17:13:00 Test Item Value Reference Range Interpretation Comments Neutrophils # (test code = Neutrophils 5.6 1.5-8.1 #) [facility] CenterLtfopuaMLZFGADZFX7847-15-06 17:13:00 Test Item Value Reference Range Interpretation Comments Lymphocytes # (test code = Lymphocytes 0.8 1.0-5.5 #) [facility] CenterVdjoiuwLJQNPUBOZO8285-25-20 17:13:00 Test Item Value Reference Range Interpretation Comments Monocytes # (test code 0.4 See_Comment [Aut omated message] The = Monocytes #) system which generated this result tra nsmitted reference range : <=0.8. The reference r hermes was not used to int erpret this result as normal/abnormal . [facility] CenterBwjxkioWEOEUMWNWM4385-38-20 17:13:00 Test Item Value Reference Range Interpretation Comments Eosinophils # (test code 0.2 See_Comment [A utomated message] The = Eosinophils #) system whic h generated this result tra nsmitted reference range : <=0.5. The reference r hermes was not used to int erpret this result as normal/abnormal . [facility]2020-11-08 17:13:00 Test Item Value Reference Range Interpretation Comments Glucose Lvl (test code = Glucose Lvl) 135 70-99 [facility]2020-11-08 17:13:00 Test Item Value Reference Range Interpretation Comments BUN (test code = BUN) 6 7-22 [place] 735340-11-08 17:13:00 Test Item Value Reference Range Interpretation Comments Creatinine Lvl (test code = Creatinine 0.87 0.50-1.40 Lvl) [facility]2020-11-08 17:13:00 Test Item Value Reference Range Interpretation Comments Sodium Lvl (test code = Sodium Lvl) 140 135-145 [place] 735340-11-08 17:13:00 Test Item Value Reference Range Interpretation Comments Potassium Lvl (test code = Potassium 3.1 3.5-5.1 Lvl) [facility] CenterAmigoCATATRIUM HEALTHEKVHC4882-95-97 17:13:00 Test Item Value Reference Range Interpretation Comments Chloride Lvl (test code = Chloride Lvl) 104 95-109 [facility] CenterAmigoCATATRIUM HEALTHSTNVJ9182-79-72 17:13:00 Test Item Value Reference Range Interpretation Comments CO2 (test code = CO2) 30 24-32 [facility] CenterAmigoCATATRIUM [id number] 17:13:00 Test Item Value Reference Range Interpretation Comments Calcium Lvl (test code = Calcium Lvl) 8.5 8.5-10.5 [facility] CenterAppcara Inc [id number] 17:13:00 Test Item Value Reference Range Interpretation Comments Total Protein (test code = Total 8.1 6.4-8.4 Protein) [facility] CenterAmigoCATATRIUM [id number] 17:13:00 Test Item Value Reference Range Interpretation Comments Albumin Lvl (test code = Albumin Lvl) 3.7 3.5-5.0 [facility] Center[facility] [id number] 17:13:00 Test Item Value Reference Range Interpretation Comments ALT (test code = ALT) 19 See_Comment [Auto mated message] The system which ge nerated this result transmit tae reference range : <=65. The reference range was not used to interpr et this result as ludmila l/abnormal. [facility] CenterApp[facility] Inc [id number] 17:13:00 Test Item Value Reference Range Interpretation Comments AST (test code = AST) 21 See_Comment [Auto mated message] The system which ge nerated this result transmit tae reference range : <=37. The reference range was not used to interpr et this result as ludmila l/abnormal. [facility] Center[facility] [id number] 17:13:00 Test Item Value Reference Range Interpretation Comments Alk Phos (test code = Alk Phos) 69 39-136 [facility] [id number] 17:13:00 Test Item Value Reference Range Interpretation Comments Bili Total (test code = Bili Total) 1.5 0.2-1.3 [facility]WHO[facility] [id number] 17:13:00 Test Item Value Reference Range Interpretation Comments AGAP (test code = AGAP) 9.1 10.0-20.0 [facility] Center[facility] [id number] 17:13:00 Test Item Value Reference Range Interpretation Comments B/C Ratio (test code = B/C Ratio) 7 1 6-25 [facility]2020-11-08 17:13:00 Test Item Value Reference Range Interpretation Comments Globulin (test code = Globulin) 4.4 2.7-4.2 [facility]2020-11-08 17:13:00 Test Item Value Reference Range Interpretation Comments A/G Ratio (test code = A/G Ratio) 0.8 1 0.7-1.6 [facility]2020-11-08 17:13:00 Test Item Value Reference Range Interpretation Comments eGFR (test code = eGFR) 112 [facility]2020-11-08 17:13:00 Test Item Value Reference Range Interpretation Comments Lipase Lvl (test code = Lipase Lvl) 764 63-393 [facility] CenterVtbrutyDBJFJWKRVN7100-51-35 17:13:00 Test Item Value Reference Range Interpretation Comments WBC (test code = WBC) 7.0 3.7-10.4 [facility] CenterCybpmltIIXGQAZGEW3977-32-40 17:13:00 Test Item Value Reference Range Interpretation Comments RBC (test code = RBC) 4.00 4.70-6.10 [facility] CenterNziyuywCHEEJZHFJZ7544-20-31 17:13:00 Test Item Value Reference Range Interpretation Comments Hgb (test code = Hgb) 12.8 14.0-18.0 [place] 044740-11-08 17:13:00 Test Item Value Reference Range Interpretation Comments Hct (test code = Hct) 36.9 42.0-54.0 [place] 044740-11-08 17:13:00 Test Item Value Reference Range Interpretation Comments MCV (test code = MCV) 92.4 80.0-94.0 [place] [address]-11-08 17:13:00 Test Item Value Reference Range Interpretation Comments MCH (test code = MCH) 31.9 pg 27.0-31.0 [facility] CenterGhrwzvlHQEFRTOXPA3435-39-27 17:13:00 Test Item Value Reference Range Interpretation Comments MCHC (test code = MCHC) 34.5 32.0-36.0 [place] 044740-11-08 17:13:00 Test Item Value Reference Range Interpretation Comments RDW (test code = RDW) 13.0 11.5-14.5 [facility] CenterQhbpabrJVEZDCNYZU0934-28-77 17:13:00 Test Item Value Reference Range Interpretation Comments Platelet (test code = Platelet) 196 133-450 [facility] CenterXhvjuidAZWTUCFBQF0563-97-58 17:13:00 Test Item Value Reference Range Interpretation Comments MPV (test code = MPV) 9.4 7.4-10.4 [facility] CenterVjjedvhAXOPWJDSKW9862-03-25 17:13:00 Test Item Value Reference Range Interpretation Comments Segs (test code = Segs) 80.4 45.0-75.0 [facility] CenterKcaigxgCCFNOENUEW3197-54-13 17:13:00 Test Item Value Reference Range Interpretation Comments Lymphocytes (test code = Lymphocytes) 11.0 20.0-40.0 [facility] CenterSskswbnDIINBEPWRX0236-05-45 17:13:00 Test Item Value Reference Range Interpretation Comments Monocytes (test code = Monocytes) 5.6 2.0-12.0 [facility] CenterMtcngkkFPQGMNOPAJ1722-71-44 17:13:00 Test Item Value Reference Range Interpretation Comments Eosinophils (test code = 2.5 See_Comment [A utomated message] The Eosinophils) system which ge nerated this result tra nsmitted reference range : <=4.0. The reference r hermes was not used to int erpret this result as normal/abnormal . [facility] CenterJsaubbsZVSVKNBDED3300-53-93 17:13:00 Test Item Value Reference Range Interpretation Comments Basophils (test code = 0.5 See_Comment [Aut omated message] The Basophils) system which ge nerated this result tra nsmitted reference range : <=1.0. The reference r hermes was not used to int erpret this result as normal/abnormal . [id number] 17:13:00 Test Item Value Reference Range Interpretation Comments Neutrophils # (test code = Neutrophils 5.6 1.5-8.1 #) [facility] CenterMphvsldTAXCGWUYFN0126-11-57 17:13:00 Test Item Value Reference Range Interpretation Comments Lymphocytes # (test code = Lymphocytes 0.8 1.0-5.5 #) [facility] CenterKccoozlMKHCMDDNSV4480-04-79 17:13:00 Test Item Value Reference Range Interpretation Comments Monocytes # (test code 0.4 See_Comment [Aut omated message] The = Monocytes #) system which generated this result tra nsmitted reference range : <=0.8. The reference r hermes was not used to int erpret this result as normal/abnormal . [facility] CenterAowuomiIHXULHGKDV2133-11-43 17:13:00 Test Item Value Reference Range Interpretation Comments Eosinophils # (test code 0.2 See_Comment [A utomated message] The = Eosinophils #) system whic h generated this result tra nsmitted reference range : <=0.5. The reference r hermes was not used to int erpret this result as normal/abnormal . [facility]WHO[facility] [id number] 17:13:00 Test Item Value Reference Range Interpretation Comments Glucose Lvl (test code = Glucose Lvl) 135 70-99 [place] 735340-11-08 17:13:00 Test Item Value Reference Range Interpretation Comments BUN (test code = BUN) 6 7-22 [place] [address]-11-08 17:13:00 Test Item Value Reference Range Interpretation Comments Creatinine Lvl (test code = Creatinine 0.87 0.50-1.40 Lvl) [place] 735340-11-08 17:13:00 Test Item Value Reference Range Interpretation Comments Sodium Lvl (test code = Sodium Lvl) 140 135-145 [place] 735340-11-08 17:13:00 Test Item Value Reference Range Interpretation Comments Potassium Lvl (test code = Potassium 3.1 3.5-5.1 Lvl) [place] [address]-11-08 17:13:00 Test Item Value Reference Range Interpretation Comments Chloride Lvl (test code = Chloride Lvl) 104 95-109 [place] 735340-11-08 17:13:00 Test Item Value Reference Range Interpretation Comments CO2 (test code = CO2) 30 24-32 [place] 735340-11-08 17:13:00 Test Item Value Reference Range Interpretation Comments Calcium Lvl (test code = Calcium Lvl) 8.5 8.5-10.5 [place] 735340-11-08 17:13:00 Test Item Value Reference Range Interpretation Comments Total Protein (test code = Total 8.1 6.4-8.4 Protein) [place] [address]-11-08 17:13:00 Test Item Value Reference Range Interpretation Comments Albumin Lvl (test code = Albumin Lvl) 3.7 3.5-5.0 [facility] [id number] 17:13:00 Test Item Value Reference Range Interpretation Comments ALT (test code = ALT) 19 See_Comment [Auto mated message] The system which ge nerated this result transmit tae reference range : <=65. The reference range was not used to interpr et this result as ludmila l/abnormal. [facility] [id number] 17:13:00 Test Item Value Reference Range Interpretation Comments AST (test code = AST) 21 See_Comment [Auto mated message] The system which ge nerated this result transmit tae reference range : <=37. The reference range was not used to interpr et this result as ludmila l/abnormal. [facility] [id number] 17:13:00 Test Item Value Reference Range Interpretation Comments Alk Phos (test code = Alk Phos) 69 39-136 [facility] [id number] 17:13:00 Test Item Value Reference Range Interpretation Comments Bili Total (test code = Bili Total) 1.5 0.2-1.3 [facility] [id number] 17:13:00 Test Item Value Reference Range Interpretation Comments AGAP (test code = AGAP) 9.1 10.0-20.0 [facility] [id number] 17:13:00 Test Item Value Reference Range Interpretation Comments B/C Ratio (test code = B/C Ratio) 7 1 6-25 [facility] [id number] 17:13:00 Test Item Value Reference Range Interpretation Comments Globulin (test code = Globulin) 4.4 2.7-4.2 [facility] [id number] 17:13:00 Test Item Value Reference Range Interpretation Comments A/G Ratio (test code = A/G Ratio) 0.8 1 0.7-1.6 [facility] [id number] 17:13:00 Test Item Value Reference Range Interpretation Comments eGFR (test code = eGFR) 112 [facility] [id number] 17:13:00 Test Item Value Reference Range Interpretation Comments Lipase Lvl (test code = Lipase Lvl) 641 73-393 [facility] CenterXkcjkwuIQHPMKRBDV8661-60-45 17:13:00 Test Item Value Reference Range Interpretation Comments WBC (test code = WBC) 7.0 3.7-10.4 [facility] CenterUautraaTLJMWTSFBS8855-09-59 17:13:00 Test Item Value Reference Range Interpretation Comments RBC (test code = RBC) 4.00 4.70-6.10 [facility] CenterLetwthwDLDKUXLSML7228-47-15 17:13:00 Test Item Value Reference Range Interpretation Comments Hgb (test code = Hgb) 12.8 14.0-18.0 [facility] CenterHzfhmnrIWCZDGSUYJ4997-82-63 17:13:00 Test Item Value Reference Range Interpretation Comments Hct (test code = Hct) 36.9 42.0-54.0 [facility] CenterVrlzzelTOSEBYPUFE1420-42-23 17:13:00 Test Item Value Reference Range Interpretation Comments MCV (test code = MCV) 92.4 80.0-94.0 [facility] CenterFwcotocOBJMIHBVBZ1745-38-36 17:13:00 Test Item Value Reference Range Interpretation Comments MCH (test code = MCH) 31.9 pg 27.0-31.0 [facility] CenterNxykmcbSSBXJFZONY3639-01-02 17:13:00 Test Item Value Reference Range Interpretation Comments MCHC (test code = MCHC) 34.5 32.0-36.0 [facility] CenterWakjxdqERLRPMBSNY2035-95-00 17:13:00 Test Item Value Reference Range Interpretation Comments RDW (test code = RDW) 13.0 11.5-14.5 [facility] CenterEcpzwcjHULZIIYKQS6021-16-68 17:13:00 Test Item Value Reference Range Interpretation Comments Platelet (test code = Platelet) 196 133-450 [facility] CenterQeigzzaDWGRBUDQCC7532-15-59 17:13:00 Test Item Value Reference Range Interpretation Comments MPV (test code = MPV) 9.4 7.4-10.4 [facility] CenterQmqogkbUDYRDAVVIM3897-19-58 17:13:00 Test Item Value Reference Range Interpretation Comments Segs (test code = Segs) 80.4 45.0-75.0 [facility] CenterQszyxglOJULTBLAGZ4515-10-61 17:13:00 Test Item Value Reference Range Interpretation Comments Lymphocytes (test code = Lymphocytes) 11.0 20.0-40.0 [facility] CenterIrjfjglLAOVPDTIDI6534-24-42 17:13:00 Test Item Value Reference Range Interpretation Comments Monocytes (test code = Monocytes) 5.6 2.0-12.0 [place] 044740-11-08 17:13:00 Test Item Value Reference Range Interpretation Comments Eosinophils (test code = 2.5 See_Comment [A utomated message] The Eosinophils) system which ge nerated this result tra nsmitted reference range : <=4.0. The reference r hermes was not used to int erpret this result as normal/abnormal . [facility] CenterBchgeqxRDDCFAWABP4801-47-79 17:13:00 Test Item Value Reference Range Interpretation Comments Basophils (test code = 0.5 See_Comment [Aut omated message] The Basophils) system which ge nerated this result tra nsmitted reference range : <=1.0. The reference r hermes was not used to int erpret this result as normal/abnormal . [place] 044740-11-08 17:13:00 Test Item Value Reference Range Interpretation Comments Neutrophils # (test code = Neutrophils 5.6 1.5-8.1 #) [place] 044740-11-08 17:13:00 Test Item Value Reference Range Interpretation Comments Lymphocytes # (test code = Lymphocytes 0.8 1.0-5.5 #) [place] 044740-11-08 17:13:00 Test Item Value Reference Range Interpretation Comments Monocytes # (test code 0.4 See_Comment [Aut omated message] The = Monocytes #) system which generated this result tra nsmitted reference range : <=0.8. The reference r hermes was not used to int erpret this result as normal/abnormal . [place] 044740-11-08 17:13:00 Test Item Value Reference Range Interpretation Comments Eosinophils # (test code 0.2 See_Comment [A utomated message] The = Eosinophils #) system whic h generated this result tra nsmitted reference range : <=0.5. The reference r hermes was not used to int erpret this result as normal/abnormal . [facility]2020-11-08 17:13:00 Test Item Value Reference Range Interpretation Comments Glucose Lvl (test code = Glucose Lvl) 135 70-99 [facility]2020-11-08 17:13:00 Test Item Value Reference Range Interpretation Comments BUN (test code = BUN) 6 7-22 [place] 735340-11-08 17:13:00 Test Item Value Reference Range Interpretation Comments Creatinine Lvl (test code = Creatinine 0.87 0.50-1.40 Lvl) [place] 735340-11-08 17:13:00 Test Item Value Reference Range Interpretation Comments Sodium Lvl (test code = Sodium Lvl) 140 135-145 [place] 735340-11-08 17:13:00 Test Item Value Reference Range Interpretation Comments Potassium Lvl (test code = Potassium 3.1 3.5-5.1 Lvl) [place] [address]-11-08 17:13:00 Test Item Value Reference Range Interpretation Comments Chloride Lvl (test code = Chloride Lvl) 104 95-109 [place] [address]-11-08 17:13:00 Test Item Value Reference Range Interpretation Comments CO2 (test code = CO2) 30 24-32 [place] 735340-11-08 17:13:00 Test Item Value Reference Range Interpretation Comments Calcium Lvl (test code = Calcium Lvl) 8.5 8.5-10.5 [place] [address]-11-08 17:13:00 Test Item Value Reference Range Interpretation Comments Total Protein (test code = Total 8.1 6.4-8.4 Protein) [place] [address]-11-08 17:13:00 Test Item Value Reference Range Interpretation Comments Albumin Lvl (test code = Albumin Lvl) 3.7 3.5-5.0 [place] 735340-11-08 17:13:00 Test Item Value Reference Range Interpretation Comments ALT (test code = ALT) 19 See_Comment [Auto mated message] The system which ge nerated this result transmit tae reference range : <=65. The reference range was not used to interpr et this result as ludmila l/abnormal. [place] [address]-11-08 17:13:00 Test Item Value Reference Range Interpretation Comments AST (test code = AST) 21 See_Comment [Auto mated message] The system which ge nerated this result transmit tae reference range : <=37. The reference range was not used to interpr et this result as ludmila l/abnormal. [facility]WHO[facility] [id number] 17:13:00 Test Item Value Reference Range Interpretation Comments Alk Phos (test code = Alk Phos) 69 39-136 [facility]2020-11-08 17:13:00 Test Item Value Reference Range Interpretation Comments Bili Total (test code = Bili Total) 1.5 0.2-1.3 [facility]2020-11-08 17:13:00 Test Item Value Reference Range Interpretation Comments AGAP (test code = AGAP) 9.1 10.0-20.0 [facility]2020-11-08 17:13:00 Test Item Value Reference Range Interpretation Comments B/C Ratio (test code = B/C Ratio) 7 1 6-25 [place] 735340-11-08 17:13:00 Test Item Value Reference Range Interpretation Comments Globulin (test code = Globulin) 4.4 2.7-4.2 [facility]2020-11-08 17:13:00 Test Item Value Reference Range Interpretation Comments A/G Ratio (test code = A/G Ratio) 0.8 1 0.7-1.6 [facility]2020-11-08 17:13:00 Test Item Value Reference Range Interpretation Comments eGFR (test code = eGFR) 112 [facility]2020-11-08 17:13:00 Test Item Value Reference Range Interpretation Comments Lipase Lvl (test code = Lipase Lvl) 641 73393 [facility] CenterQsbneoeRFFQNJSGWK4251-74-26 17:13:00 Test Item Value Reference Range Interpretation Comments WBC (test code = WBC) 7.0 3.7-10.4 [facility] CenterEgwasjwSKTZNWODPI2242-85-23 17:13:00 Test Item Value Reference Range Interpretation Comments RBC (test code = RBC) 4.00 4.70-6.10 [place] 044740-11-08 17:13:00 Test Item Value Reference Range Interpretation Comments Hgb (test code = Hgb) 12.8 14.0-18.0 [place] 044740-11-08 17:13:00 Test Item Value Reference Range Interpretation Comments Hct (test code = Hct) 36.9 42.0-54.0 [place] 044740-11-08 17:13:00 Test Item Value Reference Range Interpretation Comments MCV (test code = MCV) 92.4 80.0-94.0 [facility] CenterVoimvhkRLDIFDFSMO5746-26-55 17:13:00 Test Item Value Reference Range Interpretation Comments MCH (test code = MCH) 31.9 pg 27.0-31.0 [facility] CenterXjfonzeXSYXCSUGSW4804-60-77 17:13:00 Test Item Value Reference Range Interpretation Comments MCHC (test code = MCHC) 34.5 32.0-36.0 [facility] CenterTlrrcowFHBMDIBNGB1720-55-38 17:13:00 Test Item Value Reference Range Interpretation Comments RDW (test code = RDW) 13.0 11.5-14.5 [facility] CenterVpxfmxxHCVFNGLUDV6685-19-21 17:13:00 Test Item Value Reference Range Interpretation Comments Platelet (test code = Platelet) 196 133-450 [facility] CenterSgknqlrWKKHPERKVI8970-36-26 17:13:00 Test Item Value Reference Range Interpretation Comments MPV (test code = MPV) 9.4 7.4-10.4 [facility] CenterOfngunjWBEUYOZWRY4245-41-59 17:13:00 Test Item Value Reference Range Interpretation Comments Segs (test code = Segs) 80.4 45.0-75.0 [facility] CenterKfrscizPWRGOMBGEE4670-62-38 17:13:00 Test Item Value Reference Range Interpretation Comments Lymphocytes (test code = Lymphocytes) 11.0 20.0-40.0 [facility] CenterVkviwouMNCHSSMLSV7428-32-73 17:13:00 Test Item Value Reference Range Interpretation Comments Monocytes (test code = Monocytes) 5.6 2.0-12.0 [facility] CenterNcimmasHTTQMFSUCA7841-24-10 17:13:00 Test Item Value Reference Range Interpretation Comments Eosinophils (test code = 2.5 See_Comment [A utomated message] The Eosinophils) system which ge nerated this result tra nsmitted reference range : <=4.0. The reference r hermes was not used to int erpret this result as normal/abnormal . [facility] CenterWzgtxwdSIPDKPRQQW7538-53-25 17:13:00 Test Item Value Reference Range Interpretation Comments Basophils (test code = 0.5 See_Comment [Aut omated message] The Basophils) system which ge nerated this result tra nsmitted reference range : <=1.0. The reference r hermes was not used to int erpret this result as normal/abnormal . [facility] CenterIycjsoeEBUKYTKFCE9724-34-08 17:13:00 Test Item Value Reference Range Interpretation Comments Neutrophils # (test code = Neutrophils 5.6 1.5-8.1 #) [facility]LpboxsaUXDCCWYLRE1039-04-16 17:13:00 Test Item Value Reference Range Interpretation Comments Lymphocytes # (test code = Lymphocytes 0.8 1.0-5.5 #) [facility] HospitalPgejqzbLNZIFAHTUG8182-75-46 17:13:00 Test Item Value Reference Range Interpretation Comments Monocytes # (test code 0.4 See_Comment [Aut omated message] The = Monocytes #) system which generated this result tra nsmitted reference range : <=0.8. The reference r hermes was not used to int erpret this result as normal/abnormal . [facility] HospitalGkciqdsLSDAHUIBOG7161-77-12 17:13:00 Test Item Value Reference Range Interpretation Comments Eosinophils # (test code 0.2 See_Comment [A utomated message] The = Eosinophils #) system whic h generated this result tra nsmitted reference range : <=0.5. The reference r hermes was not used to int erpret this result as normal/abnormal . [facility] CenterImhowsxNJYBGRTJDQL6447-46-04 06:52:00 Test Item Value Reference Range Interpretation Comments PHOSPHOROUS (test code = PHOS) 2.5 MG/DL 2.5-4.9 Comment: .[id number] 06:52:00 Test Item Value Reference Range Interpretation Comments LIPASE (test code = LIP) 317 Unit/L 114-286 H Comment: .CBC W/AUTO [id number] 07:09:00 Test Item Value Reference Range Interpretation Comments WHITE BLOOD CELL (test 5.8 K/mm3 3.5-11.0 N code = WBC) RED BLOOD CELL (test 3.43 M/mm3 4.70-6.10 L code = RBC) HEMOGLOBIN (test code 10.7 G/DL 12.3-15.9 L = HGB) HEMATOCRIT (test code 30.2 % 35.8-46.7 L = HCT) MEAN CELL VOLUME (test 88.0 Fl 86.3-98.9 N code = MCV) MEAN CELL HGB (test 31.2 pg 28.9-34.4 N code = MCH) MEAN CELL HGB 35.4 G/DL 32.1-34.5 H CONCETRATION (test code = MCHC) RED CELL DISTRIBUTION 11.9 SD 11.5-14.5 N WIDTH (test code = RDW) PLATELET COUNT (test 85 K/mm3 150-450 L code = PLT) MEAN PLATELET VOLUME 12.40 fL 7.0-9.6 H (test code = MPV) NEUTROPHIL % (test 73.6 % 40-76 code = NT%) IMMATURE GRANULOCYTE % 0.3 % 0.0-5.0 N (test code = IG%) LYMPHOCYTE % (test 17.2 % 20.5-51.1 L code = LY%) MONOCYTE % (test code 7.0 % 1.7-9.3 N = MO%) EOSINOPHIL % (test 1.4 % 0.0-6.0 N code = EO%) BASOPHIL % (test code 0.5 % 0.0-2.0 N = BA%) NUCLEATED RBC % (test 0.0 /100WBC% 0.0-1.0 N code = NRBC%) NEUTROPHIL # (test 4.3 K/mm3 1.8-7.6 N code = NT#) IMMATURE GRANULOCYTE # 0.02 x10 3/uL 0.00-0.03 N (test code = IG#) LYMPHOCYTE # (test 1.0 K/mm3 0.6-3.0 N code = LY#) MONOCYTE # (test code 0.4 K/mm3 0.2-1.5 N = MO#) EOSINOPHIL # (test 0.1 K/mm3 0.0-0.4 N code = EO#) BASOPHIL # (test code 0.0 K/mm3 0.0-0.2 N = BA#) NUCLEATED RBC # (test 0.0 K/mm3 0.00-0.01 N code = NRBC#) MANUAL DIFF REQUIRED NO DIFF/SCN CRITERIA PLATELE T COUNT (test code = MDIFF) REVIEWED AND VERIFIED. COMPREHENSIVE METABOLIC [id number] 07:08:00 Test Item Value Reference Range Interpretation Comments SODIUM (test code = NA) 137 mmol/L 134-147 N POTASSIUM (test code = 3.7 mmol/L 3.4-5.0 N K) CHLORIDE (test code = 103 mmol/L 100-108 N CL) CARBON DIOXIDE (test 28 mmol/L 21-32 N code = CO2) ANION GAP (test code = 6.0 GAP calc 4.0-15.0 N GAP) GLUCOSE (test code = 94 MG/DL 70-110 N GLU) BLOOD UREA NITROGEN 4 MG/DL 7-18 L (test code = BUN) GLOMERULAR FILTRATION >=60 max estimate >60 RATE (test code = GFR) estGFR CREATININE (test code = 0.7 MG/DL 0.8-1.3 L CREAT) TOTAL PROTEIN (test code 7.4 G/DL 6.4-8.2 N = PROT) ALBUMIN (test code = 2.9 G/DL 3.4-5.0 L ALB) GLOBULIN (test code = 4.5 GM/dL GLOB) ALBUMIN/GLOBULIN RATIO 0.6 RATIO 1.2-2.2 L (test code = A/G) CALCIUM (test code = CA) 8.4 MG/DL 8.5-10.1 L BILIRUBIN TOTAL (test 1.60 MG/DL 0.2-1.2 H code = BILT) SGOT/AST (test code = 34 Unit/L 15-37 N AST) SGPT/ALT (test code = 22 Unit/L 12-78 N ALT) ALKALINE PHOSPHATASE 51 Unit/L 50-136 N TOTAL (test code = ALKP) Comment: .[id number] 07:08:00 Test Item Value Reference Range Interpretation Comments PHOSPHOROUS (test code = PHOS) 1.5 MG/DL 2.5-4.9 L Comment: .[id number] 07:08:00 Test Item Value Reference Range Interpretation Comments LIPASE (test code = LIP) 339 Unit/L 114-286 H Comment: .[id number] 07:08:00 Test Item Value Reference Range Interpretation Comments MAGNESIUM (test code = MAG) 2.2 MG/DL 1.8-2.4 N Comment: .CBC W/AUTO [id number] 06:39:00 Test Item Value Reference Range Interpretation Comments WHITE BLOOD CELL (test code = WBC) 5.8 K/mm3 3.5-11.0 N RED BLOOD CELL (test code = RBC) 3.43 M/mm3 4.70-6.10 L HEMOGLOBIN (test code = HGB) 10.7 G/DL 12.3-15.9 L HEMATOCRIT (test code = HCT) 30.2 % 35.8-46.7 L MEAN CELL VOLUME (test code = MCV) 88.0 Fl 86.3-98.9 N MEAN CELL HGB (test code = MCH) 31.2 pg 28.9-34.4 N MEAN CELL HGB CONCETRATION (test 35.4 G/DL 32.1-34.5 H code = MCHC) RED CELL DISTRIBUTION WIDTH (test SD 11.5-14.5 N code = RDW) PLATELET COUNT (test code = PLT) 85 K/mm3 150-450 L MEAN PLATELET VOLUME (test code = fL 7.0-9.6 H MPV) NEUTROPHIL % (test code = NT%) % 40-76 IMMATURE GRANULOCYTE % (test code % 0.0-5.0 N = IG%) LYMPHOCYTE % (test code = LY%) % 20.5-51.1 L MONOCYTE % (test code = MO%) % 1.7-9.3 N EOSINOPHIL % (test code = EO%) % 0.0-6.0 N BASOPHIL % (test code = BA%) % 0.0-2.0 N NUCLEATED RBC % (test code = /100WBC% 0.0-1.0 N NRBC%) NEUTROPHIL # (test code = NT#) K/mm3 1.8-7.6 N IMMATURE GRANULOCYTE # (test code x10 3/uL 0.00-0.03 N = IG#) LYMPHOCYTE # (test code = LY#) K/mm3 0.6-3.0 N MONOCYTE # (test code = MO#) K/mm3 0.2-1.5 N EOSINOPHIL # (test code = EO#) K/mm3 0.0-0.4 N BASOPHIL # (test code = BA#) K/mm3 0.0-0.2 N NUCLEATED RBC # (test code = K/mm3 0.00-0.01 N NRBC#) MANUAL DIFF REQUIRED (test code = DIFF/SCN CRITERIA MDIFF) COMPREHENSIVE METABOLIC [id number] 07:03:00 Test Item Value Reference Range Interpretation Comments SODIUM (test code = NA) 140 mmol/L 134-147 N POTASSIUM (test code = 4.0 mmol/L 3.4-5.0 N K) CHLORIDE (test code = 108 mmol/L 100-108 N CL) CARBON DIOXIDE (test 24 mmol/L 21-32 code = CO2) ANION GAP (test code = 8.0 GAP calc 4.0-15.0 N GAP) GLUCOSE (test code = 104 MG/DL 70-110 N GLU) BLOOD UREA NITROGEN 11 MG/DL 7-18 N (test code = BUN) GLOMERULAR FILTRATION >=60 max estimate >60 RATE (test code = GFR) estGFR CREATININE (test code = 0.9 MG/DL 0.8-1.3 N CREAT) TOTAL PROTEIN (test code 8.0 G/DL 6.4-8.2 N = PROT) ALBUMIN (test code = 3.5 G/DL 3.4-5.0 N ALB) GLOBULIN (test code = 4.5 GM/dL GLOB) ALBUMIN/GLOBULIN RATIO 0.8 RATIO 1.2-2.2 L (test code = A/G) CALCIUM (test code = CA) 7.9 MG/DL 8.5-10.1 L BILIRUBIN TOTAL (test 2.00 MG/DL 0.2-1.2 H code = BILT) SGOT/AST (test code = 64 Unit/L 15-37 H AST) SGPT/ALT (test code = 44 Unit/L 12-78 N ALT) ALKALINE PHOSPHATASE 63 Unit/L 50-136 N TOTAL (test code = ALKP) [id number] 07:03:00 Test Item Value Reference Range Interpretation Comments LIPASE (test code = LIP) 914 Unit/L 114-286 H CBC W/AUTO [id number] 06:17:00 Test Item Value Reference Range Interpretation Comments WHITE BLOOD CELL (test code = 13.1 K/mm3 3.5-11.0 H WBC) RED BLOOD CELL (test code = 3.74 M/mm3 4.70-6.10 L RBC) HEMOGLOBIN (test code = HGB) 11.9 G/DL 12.3-15.9 L HEMATOCRIT (test code = HCT) 32.9 % 35.8-46.7 L MEAN CELL VOLUME (test code = 88.0 Fl 86.3-98.9 N MCV) MEAN CELL HGB (test code = MCH) 31.8 pg 28.9-34.4 N MEAN CELL HGB CONCETRATION 36.2 G/DL 32.1-34.5 H (test code = MCHC) RED CELL DISTRIBUTION WIDTH 12.7 SD 11.5-14.5 N (test code = RDW) PLATELET COUNT (test code = 190 K/mm3 150-450 N PLT) MEAN PLATELET VOLUME (test code 10.80 fL 7.0-9.6 H = MPV) NEUTROPHIL % (test code = NT%) 82.8 % 40-76 H IMMATURE GRANULOCYTE % (test 0.5 % 0.0-5.0 N code = IG%) LYMPHOCYTE % (test code = LY%) 10.2 % 20.5-51.1 L MONOCYTE % (test code = MO%) 6.1 % 1.7-9.3 N EOSINOPHIL % (test code = EO%) 0.0 % 0.0-6.0 N BASOPHIL % (test code = BA%) 0.4 % 0.0-2.0 N NUCLEATED RBC % (test code = 0.0 /100WBC% 0.0-1.0 N NRBC%) NEUTROPHIL # (test code = NT#) 10.9 K/mm3 1.8-7.6 H IMMATURE GRANULOCYTE # (test 0.06 x10 3/uL 0.00-0.03 H code = IG#) LYMPHOCYTE # (test code = LY#) 1.3 K/mm3 0.6-3.0 N MONOCYTE # (test code = MO#) 0.8 K/mm3 0.2-1.5 N EOSINOPHIL # (test code = EO#) 0.0 K/mm3 0.0-0.4 N BASOPHIL # (test code = BA#) 0.1 K/mm3 0.0-0.2 N NUCLEATED RBC # (test code = 0.0 K/mm3 0.00-0.01 N NRBC#) MANUAL DIFF REQUIRED (test code NO DIFF/SCN CRITERIA = MDIFF) LACTIC [id number] 00:52:00 Test Item Value Reference Range Interpretation Comments LACTIC ACID (test code = LACT) 1.5 mmol/L 0.4-2.0 LACTIC [id number] 22:14:00 Test Item Value Reference Range Interpretation Comments LACTIC ACID (test code = LACT) 3.3 mmol/L 0.4-2.0 H Coronavirus 2019 nCoV [id number] 21:02:00 Test Item Value Reference Range Interpretation Comments Coronavirus 2019 nCoV Negative Negative Per ma nufacturer, Bedside (test code = negativ e results should [id number]) be treated aspresumptive a nd, if inconsistent wi th clinical signs andsymptoms or necessary for p atient management, humberto uld betested with a n alternative mol ecular assay. Negative resultsdo not p reclude SARS-CoV-2 infe ction and should not be usedas the sole basis for patient man agement decisions. Nega tive results should be considered in t he context of apat ient's recent exposure s, history, presen ce of clinicalsigns a nd symptoms consis tent with COVID-19. Emergent procedure? NOCBC W/AUTO [id number] 20:35:00 Test Item Value Reference Range Interpretation Comments WHITE BLOOD CELL 24.6 K/mm3 3.5-11.0 H (test code = WBC) RED BLOOD CELL (test 4.56 M/mm3 4.70-6.10 L code = RBC) HEMOGLOBIN (test code 14.6 G/DL 12.3-15.9 N = HGB) HEMATOCRIT (test code 40.6 % 35.8-46.7 N = HCT) MEAN CELL VOLUME 89.0 Fl 86.3-98.9 N (test code = MCV) MEAN CELL HGB (test 32.0 pg 28.9-34.4 N code = MCH) MEAN CELL HGB 36.0 G/DL 32.1-34.5 H CONCETRATION (test code = MCHC) RED CELL DISTRIBUTION 13.1 SD 11.5-14.5 N WIDTH (test code = RDW) PLATELET COUNT (test 275 K/mm3 150-450 N code = PLT) MEAN PLATELET VOLUME 10.60 fL 7.0-9.6 H (test code = MPV) NEUTROPHIL % (test 92.1 % 40-76 H code = NT%) IMMATURE GRANULOCYTE 1.7 % 0.0-5.0 N % (test code = IG%) LYMPHOCYTE % (test 2.8 % 20.5-51.1 L code = LY%) MONOCYTE % (test code 3.2 % 1.7-9.3 N = MO%) EOSINOPHIL % (test 0.0 % 0.0-6.0 N code = EO%) BASOPHIL % (test code 0.2 % 0.0-2.0 N = BA%) NUCLEATED RBC % (test 0.2 /100WBC% 0.0-1.0 N code = NRBC%) NEUTROPHIL # (test 22.7 K/mm3 1.8-7.6 H code = NT#) IMMATURE GRANULOCYTE 0.42 x10 3/uL 0.00-0.03 H # (test code = IG#) LYMPHOCYTE # (test 0.7 K/mm3 0.6-3.0 N code = LY#) MONOCYTE # (test code 0.8 K/mm3 0.2-1.5 N = MO#) EOSINOPHIL # (test 0.0 K/mm3 0.0-0.4 N code = EO#) BASOPHIL # (test code 0.1 K/mm3 0.0-0.2 N = BA#) NUCLEATED RBC # (test 0.0 K/mm3 0.00-0.01 N code = NRBC#) MANUAL DIFF REQUIRED NO DIFF/SCN CRITERIA SLIDE R EVIEW (test code = MDIFF) CONSISTA NT WITH AUTO DIFFERENTI AL. - CT ABD PELVIS [id number] 20:23:00 Name: QUETA DOYLE [facility] : 1985 Age/S: 34 / M [address] [address] Unit #: [id number] Loc: [place] [address] Phys: Jasmina Judd MD Acct: [id number] Dis Date: Status: [facility] PHONE #: [phone] Exam Date: 09/22/20191958 FAX #: Reason: abdominal pain EXAMS: CPT: [id number] CT ABD PELVIS W/CONT [id number] Examination: CT scan abdomen and pelvis with contrast. Location code: 60. TECHNIQUE: Multiple axial images of the abdomen and pelvis were obtained after intravenous administr ation of contrast with sagittal and coronal reconstructions. CT examination was performed using automated dose reduction. COMPARISON: 02/18/2019. Discussion: Clinical history significant for abdominal pain. There is diffuse hypodensity liver consistent with fatty infiltration. No focal hepatic masses are identified. Spleen, adrenal glands, pancreas and kidneys are normal in appearance. Bowel loops are normal in caliber. No radiopaque gallstones identified. No enlarged retroperitoneal, pelvic or inguinal adenopathy is noted. Bladder is distended and is grossly unremarkable. Appendix is visualized and is normal in appearance. There is no CT evidence for appendicitis. No other abnormal masses or fluid collections identified in the abdomen and/or pelvis. Lung bases are clear. IMPRESSION: 1. Fatty infiltration of liver. 2. Otherwise unremarkable CT scan of abdomen and pelvis. at 2022 Reported and signed by: Link Lopez M.D. CC: Jasmina Judd MD; Dunia PELAYO Technologist:Radha Ramon, RT(R)(CT)(MRI) CTDI: DLP: Trnscb Date/Time:09/22/2019 (2022) [email or web address] Orig Print D/T: S: 09/22/2019 (2026) PAGE 1 Signed Report- XR CHEST 1 [id number] 19:46:00 [facility] 1985 Age/S: 34 / M [address] [address] Unit #: [id number] Loc: [place] [address] Phys: Sam Hilliard Lac, DO Acct: [id number] Dis Date: Status: REG ERPHONE #: [phone] Exam Date: 09/22/20191934 FAX #: Reason: abdominal pain EXAMS: CPT: [id number] XR CHEST 1 V 95650 Fluoro Time: DAP (Gy m2): Air Kerma (mGy): LOCATION: T18 EXAM: CHEST 1 VIEW INDICATION: , abdominal pain COMPARISON: Chest x-ray February 18, 2019. TECHNIQUE: AP chest radiograph. FINDINGS: Lungs are clear bilaterally without effusion. Heart is normal in size. Bones and peripheral soft tissues are unremarkable. IMPRESSION: Lungs are clear. No acute abnormality. at 1946 Reported and signed by: Liban Palmer M.D. CC: Jasmina Judd MD; Dunia PELAYO; Sam Hilliard DO PAGE 1 Signed Report Name: QUETA DOYLE [facility] : 1985 Age/S: 34 / M [address] [address] Unit #: [id number] Loc: [place] [address] Phys: Sam Hilliard DO Acct: [id number] Dis Date: Status: REG ER PHONE #: [phone] Exam Date: 09/22/20191934 FAX #: Reason: abdominal pain EXAMS: CPT: [id number] XR CHEST 1 V 42092 Fluoro Time: DAP (Gy m2): Air Kerma (mGy): <Continued> Technologist: Radha Ramon, RT(R)(CT)(MRI) Trnscb Date/Time: 09/22/2019 (1945) [email or web address] Orig Print D/T: S: 09/22/2019 (1948) PAGE 2 Signed ReportBASIC METABOLIC [id number] 19:45:00 Test Item Value Reference Range Interpretation Comments SODIUM (test code = NA) 142 mmol/L 134-147 N POTASSIUM (test code = 4.2 mmol/L 3.4-5.0 N K) CHLORIDE (test code = 108 mmol/L 100-108 N CL) CARBON DIOXIDE (test 19 mmol/L 21-32 L code = CO2) ANION GAP (test code = 15.0 GAP calc 4.0-15.0 N GAP) GLUCOSE (test code = 182 MG/DL 70-110 H GLU) BLOOD UREA NITROGEN 16 MG/DL 7-18 N (test code = BUN) GLOMERULAR FILTRATION >=60 max estimate >60 RATE (test code = GFR) estGFR CREATININE (test code = 1.3 MG/DL 0.8-1.3 N CREAT) CALCIUM (test code = CA) 9.5 MG/DL 8.5-10.1 N Completed by Nursing: NOHEPATIC FUNCTION [id number] 19:45:00 Test Item Value Reference Range Interpretation Comments TOTAL PROTEIN (test code = PROT) 9.6 G/DL 6.4-8.2 H ALBUMIN (test code = ALB) 4.2 G/DL 3.4-5.0 N BILIRUBIN TOTAL (test code = BILT) 2.00 MG/DL 0.2-1.2 H BILIRUBIN DIRECT (test code = 0.70 MG/DL 0.00-0.30 H BILD) BILIRUBIN INDIRECT (test code = 1.30 MG/DL 0.2-1.2 H BILIND) SGOT/AST (test code = AST) 146 Unit/L 15-37 H SGPT/ALT (test code = ALT) 64 Unit/L 12-78 N ALKALINE PHOSPHATASE TOTAL (test 85 Unit/L 50-136 N code = ALKP) Completed by Nursing: [id number] 19:45:00 Test Item Value Reference Range Interpretation Comments LIPASE (test code = LIP) 762 Unit/L 114-286 H Completed by Nursing: [id number] 19:45:00 Test Item Value Reference Range Interpretation Comments TROPONIN-I (test < 0.015 NG/ML 0.000-0.045 N Negative: </= 0.045 code = TROPI) Positive: >/= 0.046 Correlation wit h serial results, other cardiac markers, and cl inical findings is nec essary to determine the c linical significance of this result. Quantit ative results using d ifferent methodologies s hould not be compared to one another as nume rical results may garret yby method. Completed by Nursing: NOUA RFLX MICR CULT IF [id number] 19:45:00 Test Item Value Reference Range Interpretation Comments UA COLOR (test code = YELLOW discript YEL/STRAW COLU) UA APPEARANCE (test code CLEAR discript CLEAR = APPU) UA GLUCOSE DIPSTICK (test NEGATIVE mg/dL NEG code = DGLUU) UA BILIRUBIN DIPSTICK NEGATIVE mg/dL NEG (test code = BILU) UA KETONE DIPSTICK (test 3+ mg/dL NEG A code = KETU) UA SPECIFIC GRAVITY (test >=1.030 SG 1.005-1.030 A code = SGU) UA BLOOD DIPSTICK (test 1+ mg/DL NEG A code = WILFRED) UA PH DIPSTICK (test code 5.5 pH UNITS 5.0-7.0 = LIMA) UA PROTEIN DIPSTICK (test TRACE mg/dL NEG A code = PROU) UA UROBILINIOGEN DIPSTICK 0.2 mg/dL <2.0 (test code = URO) UA NITRITE DIPSTICK (test NEGATIVE SCREEN NEG code = JF) UA LEUKOCYTE ESTERASE NEGATIVE Leuk/mcL NEGATIVE DIPSTICK (test code = LEUU) UA WBC (test code = WBCU) 0-1 #WBC/HPF 0-3 UA RBC (test code = RBCU) 0-1 #RBC/HPF 0-3 UA BACTERIA (test code = NONE SEEN /HPF NONE-TRACE BACU) UA SQUAMOUS CELLS (test NONE SEEN /HPF NONE code = SQU) UA CULTURE NEEDED? (test NO, WBC<10 Criteria Culture CHK code = UACULT) SOURCE OF URINE: CLEAN CATCHIndication for culture: Dysuria/FrequencyDRUGS OF ABUSE SCREEN [id number] 19:45:00 Test Item Value Reference Range Interpretation Comments URN COCAINE (test code = NEGATIVE SCcutoff <300 NG/ML COCAURN) URN CANNABINOIDS (test code NEGATIVE SCcutoff <50 NG/ML = CANNABURN) URN AMPHETAMINE (test code NEGATIVE SCcutoff <1000 NG/ML = AMPHETURN) URN BARBITURATE (test code NEGATIVE SCcutoff <200 NG/ML = BARBITURN) URN BENZODIAZEPINE (test NEGATIVE SCcutoff <200 NG/ML code = BENZOURN) URN OPIATES (test code = NEGATIVE SCcutoff <2000 NG/ML OPIATURN) URN PHENCYCLIDINE (PCP) NEGATIVE SCcutoff <25 NG/ML (test code = PHENCURN) URN METHADONE (test code = NEGATIVE SCcutoff <300 NG/ML METHAURN) SOURCE OF URINE: CLEAN CATCHIndication for culture: Dysuria/FrequencyUA RFLX MICR CULT IF [id number] 19:26:00 Test Item Value Reference Range Interpretation Comments UA COLOR (test code = YELLOW discript YEL/STRAW COLU) UA APPEARANCE (test code CLEAR discript CLEAR = APPU) UA GLUCOSE DIPSTICK (test NEGATIVE mg/dL NEG code = DGLUU) UA BILIRUBIN DIPSTICK NEGATIVE mg/dL NEG (test code = BILU) UA KETONE DIPSTICK (test 3+ mg/dL NEG A code = KETU) UA SPECIFIC GRAVITY (test >=1.030 SG 1.005-1.030 A code = SGU) UA BLOOD DIPSTICK (test 1+ mg/DL NEG A code = WILFRED) UA PH DIPSTICK (test code 5.5 pH UNITS 5.0-7.0 = LIMA) UA PROTEIN DIPSTICK (test TRACE mg/dL NEG A code = PROU) UA UROBILINIOGEN DIPSTICK 0.2 mg/dL <2.0 (test code = URO) UA NITRITE DIPSTICK (test NEGATIVE SCREEN NEG code = JF) UA LEUKOCYTE ESTERASE NEGATIVE Leuk/mcL NEGATIVE DIPSTICK (test code = LEUU) UA WBC (test code = WBCU) 0-1 #WBC/HPF 0-3 UA RBC (test code = RBCU) 0-1 #RBC/HPF 0-3 UA BACTERIA (test code = NONE SEEN /HPF NONE-TRACE BACU) UA SQUAMOUS CELLS (test NONE SEEN /HPF NONE code = SQU) UA CULTURE NEEDED? (test NO, WBC<10 Criteria Culture CHK code = UACULT) SOURCE OF URINE: CLEAN CATCHIndication for culture: Dysuria/FrequencyDRUGS OF ABUSE SCREEN [id number] 19:26:00 Test Item Value Reference Range Interpretation Comments URN COCAINE (test code = COCAURN) SCcutoff <300 NG/ML URN CANNABINOIDS (test code = SCcutoff <50 NG/ML CANNABURN) URN AMPHETAMINE (test code = SCcutoff <1000 NG/ML AMPHETURN) URN BARBITURATE (test code = SCcutoff <200 NG/ML BARBITURN) URN BENZODIAZEPINE (test code = SCcutoff <200 NG/ML BENZOURN) URN OPIATES (test code = OPIATURN) SCcutoff <2000 NG/ML URN PHENCYCLIDINE (PCP) (test code SCcutoff <25 NG/ML = PHENCURN) URN METHADONE (test code = SCcutoff <300 NG/ML METHAURN) SOURCE OF URINE: CLEAN CATCHIndication for culture: Dysuria/FrequencyUA RFLX MICR CULT IF [id number] 19:22:00 Test Item Value Reference Range Interpretation Comments UA COLOR (test code = COLU) YELLOW discript YEL/STRAW UA APPEARANCE (test code = CLEAR discript CLEAR APPU) UA GLUCOSE DIPSTICK (test NEGATIVE mg/dL NEG code = DGLUU) UA BILIRUBIN DIPSTICK (test NEGATIVE mg/dL NEG code = BILU) UA KETONE DIPSTICK (test 3+ mg/dL NEG A code = KETU) UA SPECIFIC GRAVITY (test >=1.030 SG 1.005-1.030 A code = SGU) UA BLOOD DIPSTICK (test 1+ mg/DL NEG A code = WILFRED) UA PH DIPSTICK (test code = 5.5 pH UNITS 5.0-7.0 LIMA) UA PROTEIN DIPSTICK (test TRACE mg/dL NEG A code = PROU) UA UROBILINIOGEN DIPSTICK 0.2 mg/dL <2.0 (test code = URO) UA NITRITE DIPSTICK (test NEGATIVE SCREEN NEG code = JF) UA LEUKOCYTE ESTERASE NEGATIVE Leuk/mcL NEGATIVE DIPSTICK (test code = LEUU) UA CULTURE NEEDED? (test Criteria Culture CHK code = UACULT) SOURCE OF URINE: CLEAN CATCHIndication for culture: Dysuria/FrequencyDRUGS OF ABUSE SCREEN [id number] 19:22:00 Test Item Value Reference Range Interpretation Comments URN COCAINE (test code = COCAURN) SCcutoff <300 NG/ML URN CANNABINOIDS (test code = SCcutoff <50 NG/ML CANNABURN) URN AMPHETAMINE (test code = SCcutoff <1000 NG/ML AMPHETURN) URN BARBITURATE (test code = SCcutoff <200 NG/ML BARBITURN) URN BENZODIAZEPINE (test code = SCcutoff <200 NG/ML BENZOURN) URN OPIATES (test code = OPIATURN) SCcutoff <2000 NG/ML URN PHENCYCLIDINE (PCP) (test code SCcutoff <25 NG/ML = PHENCURN) URN METHADONE (test code = SCcutoff <300 NG/ML METHAURN) SOURCE OF URINE: CLEAN CATCHIndication for culture: Dysuria/FrequencyCBC W/AUTO [id number] 19:20:00 Test Item Value Reference Range Interpretation Comments WHITE BLOOD CELL (test code = WBC) 24.6 K/mm3 3.5-11.0 H RED BLOOD CELL (test code = RBC) 4.56 M/mm3 4.70-6.10 L HEMOGLOBIN (test code = HGB) 14.6 G/DL 12.3-15.9 N HEMATOCRIT (test code = HCT) 40.6 % 35.8-46.7 N MEAN CELL VOLUME (test code = MCV) 89.0 Fl 86.3-98.9 N MEAN CELL HGB (test code = MCH) 32.0 pg 28.9-34.4 N MEAN CELL HGB CONCETRATION (test 36.0 G/DL 32.1-34.5 H code = MCHC) RED CELL DISTRIBUTION WIDTH (test SD 11.5-14.5 N code = RDW) PLATELET COUNT (test code = PLT) 275 K/mm3 150-450 N MEAN PLATELET VOLUME (test code = fL 7.0-9.6 H MPV) NEUTROPHIL % (test code = NT%) % 40-76 H IMMATURE GRANULOCYTE % (test code % 0.0-5.0 N = IG%) LYMPHOCYTE % (test code = LY%) % 20.5-51.1 L MONOCYTE % (test code = MO%) % 1.7-9.3 N EOSINOPHIL % (test code = EO%) % 0.0-6.0 N BASOPHIL % (test code = BA%) % 0.0-2.0 N NUCLEATED RBC % (test code = /100WBC% 0.0-1.0 N NRBC%) NEUTROPHIL # (test code = NT#) K/mm3 1.8-7.6 H IMMATURE GRANULOCYTE # (test code x10 3/uL 0.00-0.03 H = IG#) LYMPHOCYTE # (test code = LY#) K/mm3 0.6-3.0 N MONOCYTE # (test code = MO#) K/mm3 0.2-1.5 N EOSINOPHIL # (test code = EO#) K/mm3 0.0-0.4 N BASOPHIL # (test code = BA#) K/mm3 0.0-0.2 N NUCLEATED RBC # (test code = K/mm3 0.00-0.01 N NRBC#) MANUAL DIFF REQUIRED (test code = DIFF/SCN CRITERIA MDIFF) BASIC METABOLIC [id number] 05:06:00 Test Item Value Reference Range Interpretation Comments SODIUM (test code = NA) 135 mmol/L 134-147 N POTASSIUM (test code = 3.4 mmol/L 3.4-5.0 N K) CHLORIDE (test code = 100 mmol/L 100-108 N CL) CARBON DIOXIDE (test 29 mmol/L 21-32 N code = CO2) ANION GAP (test code = 6.0 GAP calc 4.0-15.0 N GAP) GLUCOSE (test code = 118 MG/DL 70-110 H GLU) BLOOD UREA NITROGEN 2 MG/DL 7-18 L (test code = BUN) GLOMERULAR FILTRATION >=60 max estimate >60 RATE (test code = GFR) estGFR CREATININE (test code = 0.7 MG/DL 0.8-1.3 L CREAT) CALCIUM (test code = CA) 8.9 MG/DL 8.5-10.1 N [id number] 05:06:00 Test Item Value Reference Range Interpretation Comments LIPASE (test code = LIP) 438 Unit/L 114-286 H CBC W/AUTO [id number] 04:59:00 Test Item Value Reference Range Interpretation Comments WHITE BLOOD CELL (test code = 8.2 K/mm3 3.5-11.0 N WBC) RED BLOOD CELL (test code = RBC) 4.00 M/mm3 4.70-6.10 L HEMOGLOBIN (test code = HGB) 12.0 G/DL 12.3-15.9 L HEMATOCRIT (test code = HCT) 35.0 % 35.8-46.7 L MEAN CELL VOLUME (test code = 87.5 Fl 86.3-98.9 N MCV) MEAN CELL HGB (test code = MCH) 30.0 pg 28.9-34.4 N MEAN CELL HGB CONCETRATION (test 34.3 G/DL 32.1-34.5 N code = MCHC) RED CELL DISTRIBUTION WIDTH (test 12.4 SD 11.5-14.5 N code = RDW) PLATELET COUNT (test code = PLT) 111.0 K/mm3 150-450 L MEAN PLATELET VOLUME (test code = 11.30 fL 7.0-9.6 H MPV) NEUTROPHIL % (test code = NT%) 81.8 % 40-76 H LYMPHOCYTE % (test code = LY%) 9.3 % 20.5-51.1 L MONOCYTE % (test code = MO%) 7.8 % 1.7-9.3 N EOSINOPHIL % (test code = EO%) 1.0 % 0.0-6.0 N BASOPHIL % (test code = BA%) 0.1 % 0.0-2.0 N NEUTROPHIL # (test code = NT#) 6.68 K/mm3 1.8-7.6 N LYMPHOCYTE # (test code = LY#) 0.8 K/mm3 0.6-3.0 N MONOCYTE # (test code = MO#) 0.6 K/mm3 0.2-1.5 N EOSINOPHIL # (test code = EO#) 0.1 K/mm3 0.0-0.4 N BASOPHIL # (test code = BA#) 0.0 K/mm3 0.0-0.2 N MANUAL DIFF REQUIRED (test code = NO DIFF/SCN CRITERIA MDIFF) BASIC METABOLIC [id number] 05:27:00 Test Item Value Reference Range Interpretation Comments SODIUM (test code = NA) 138 mmol/L 134-147 N POTASSIUM (test code = 3.5 mmol/L 3.4-5.0 N K) CHLORIDE (test code = 106 mmol/L 100-108 N CL) CARBON DIOXIDE (test 27 mmol/L 21-32 N code = CO2) ANION GAP (test code = 5.0 GAP calc 4.0-15.0 N GAP) GLUCOSE (test code = 115 MG/DL 70-110 H GLU) BLOOD UREA NITROGEN 8 MG/DL 7-18 N (test code = BUN) GLOMERULAR FILTRATION >=60 max estimate >60 RATE (test code = GFR) estGFR CREATININE (test code = 0.8 MG/DL 0.8-1.3 N CREAT) CALCIUM (test code = CA) 8.8 MG/DL 8.5-10.1 N HEPATIC FUNCTION [id number] 05:27:00 Test Item Value Reference Range Interpretation Comments TOTAL PROTEIN (test code = PROT) 7.6 G/DL 6.4-8.2 N ALBUMIN (test code = ALB) 3.5 G/DL 3.4-5.0 N BILIRUBIN TOTAL (test code = BILT) 1.10 MG/DL 0.2-1.2 N BILIRUBIN DIRECT (test code = 0.40 MG/DL 0.00-0.30 H BILD) BILIRUBIN INDIRECT (test code = 0.70 MG/DL 0.2-1.2 N BILIND) SGOT/AST (test code = AST) 28 Unit/L 15-37 N SGPT/ALT (test code = ALT) 30 Unit/L 12-78 N ALKALINE PHOSPHATASE TOTAL (test 63 Unit/L 50-136 N code = ALKP) [id number] 05:27:00 Test Item Value Reference Range Interpretation Comments LIPASE (test code = LIP) 1252 Unit/L 114-286 H COMPREHENSIVE METABOLIC [id number] 14:30:00 Test Item Value Reference Range Interpretation Comments SODIUM (test code = NA) 138 mmol/L 134-147 N POTASSIUM (test code = 3.5 mmol/L 3.4-5.0 N K) CHLORIDE (test code = 104 mmol/L 100-108 N CL) CARBON DIOXIDE (test 26 mmol/L 21-32 N code = CO2) ANION GAP (test code = 8.0 GAP calc 4.0-15.0 N GAP) GLUCOSE (test code = 148 MG/DL 70-110 H GLU) BLOOD UREA NITROGEN 11 MG/DL 7-18 N (test code = BUN) GLOMERULAR FILTRATION >=60 max estimate >60 RATE (test code = GFR) estGFR CREATININE (test code = 0.9 MG/DL 0.8-1.3 N CREAT) TOTAL PROTEIN (test code 9.2 G/DL 6.4-8.2 H = PROT) ALBUMIN (test code = 4.0 G/DL 3.4-5.0 N ALB) GLOBULIN (test code = 5.2 GM/dL GLOB) ALBUMIN/GLOBULIN RATIO 0.8 RATIO 1.2-2.2 L (test code = A/G) CALCIUM (test code = CA) 9.5 MG/DL 8.5-10.1 N BILIRUBIN TOTAL (test 1.30 MG/DL 0.2-1.2 H code = BILT) SGOT/AST (test code = 42 Unit/L 15-37 H AST) SGPT/ALT (test code = 35 Unit/L 12-78 N ALT) ALKALINE PHOSPHATASE 82 Unit/L 50-136 N TOTAL (test code = ALKP) [id number] 14:30:00 Test Item Value Reference Range Interpretation Comments LIPASE (test code = LIP) 2019 Unit/L 114-286 H [id number] 14:30:00 Test Item Value Reference Range Interpretation Comments ALCOHOL (test code = ALC) < 3 MG/DL 0-10 N COMPREHENSIVE METABOLIC [id number] 14:24:00 Test Item Value Reference Range Interpretation Comments SODIUM (test code = NA) 138 mmol/L 134-147 N POTASSIUM (test code = 3.5 mmol/L 3.4-5.0 N K) CHLORIDE (test code = 104 mmol/L 100-108 N CL) CARBON DIOXIDE (test 26 mmol/L 21-32 N code = CO2) ANION GAP (test code = 8.0 GAP calc 4.0-15.0 N GAP) GLUCOSE (test code = 148 MG/DL 70-110 H GLU) BLOOD UREA NITROGEN 11 MG/DL 7-18 N (test code = BUN) GLOMERULAR FILTRATION >=60 max estimate >60 RATE (test code = GFR) estGFR CREATININE (test code = 0.9 MG/DL 0.8-1.3 N CREAT) TOTAL PROTEIN (test code 9.2 G/DL 6.4-8.2 H = PROT) ALBUMIN (test code = 4.0 G/DL 3.4-5.0 N ALB) GLOBULIN (test code = 5.2 GM/dL GLOB) ALBUMIN/GLOBULIN RATIO 0.8 RATIO 1.2-2.2 L (test code = A/G) CALCIUM (test code = CA) 9.5 MG/DL 8.5-10.1 N BILIRUBIN TOTAL (test 1.30 MG/DL 0.2-1.2 H code = BILT) SGOT/AST (test code = 42 Unit/L 15-37 H AST) SGPT/ALT (test code = 35 Unit/L 12-78 N ALT) ALKALINE PHOSPHATASE 82 Unit/L 50-136 N TOTAL (test code = ALKP) [id number] 14:24:00 Test Item Value Reference Range Interpretation Comments LIPASE (test code = LIP) 2019 Unit/L 114-286 H [id number] 14:24:00 Test Item Value Reference Range Interpretation Comments ALCOHOL (test code = ALC) MG/DL 0-10 CBC W/AUTO [id number] 13:50:00 Test Item Value Reference Range Interpretation Comments WHITE BLOOD CELL (test code = 12.5 K/mm3 3.5-11.0 H WBC) RED BLOOD CELL (test code = RBC) 4.59 M/mm3 4.70-6.10 L HEMOGLOBIN (test code = HGB) 14.0 G/DL 12.3-15.9 N HEMATOCRIT (test code = HCT) 40.1 % 35.8-46.7 N MEAN CELL VOLUME (test code = 87.4 Fl 86.3-98.9 N MCV) MEAN CELL HGB (test code = MCH) 30.5 pg 28.9-34.4 N MEAN CELL HGB CONCETRATION (test 34.9 G/DL 32.1-34.5 H code = MCHC) RED CELL DISTRIBUTION WIDTH (test 12.7 SD 11.5-14.5 N code = RDW) PLATELET COUNT (test code = PLT) 209.0 K/mm3 150-450 N MEAN PLATELET VOLUME (test code = 10.90 fL 7.0-9.6 H MPV) NEUTROPHIL % (test code = NT%) 84.7 % 40-76 H LYMPHOCYTE % (test code = LY%) 7.4 % 20.5-51.1 L MONOCYTE % (test code = MO%) 7.8 % 1.7-9.3 N EOSINOPHIL % (test code = EO%) 0.0 % 0.0-6.0 N BASOPHIL % (test code = BA%) 0.1 % 0.0-2.0 N NEUTROPHIL # (test code = NT#) 10.61 K/mm3 1.8-7.6 H LYMPHOCYTE # (test code = LY#) 0.9 K/mm3 0.6-3.0 N MONOCYTE # (test code = MO#) 1.0 K/mm3 0.2-1.5 N EOSINOPHIL # (test code = EO#) 0.0 K/mm3 0.0-0.4 N BASOPHIL # (test code = BA#) 0.0 K/mm3 0.0-0.2 N MANUAL DIFF REQUIRED (test code = NO DIFF/SCN CRITERIA MDIFF) CHEM [id number] 11:08:00 Test Item Value Reference Range Interpretation Comments Glucose Lvl (test code = Glucose Lvl) 107 70-99 [facility] [id number] 11:08:00 Test Item Value Reference Range Interpretation Comments BUN (test code = BUN) 4 7-22 [facility] [id number] 11:08:00 Test Item Value Reference Range Interpretation Comments Creatinine Lvl (test code = Creatinine 0.66 0.50-1.40 Lvl) [facility] [id number] 11:08:00 Test Item Value Reference Range Interpretation Comments Sodium Lvl (test code = Sodium Lvl) 138 135-145 [facility] [id number] 11:08:00 Test Item Value Reference Range Interpretation Comments Potassium Lvl (test code = Potassium 3.6 3.5-5.1 Lvl) [facility] [employer] [id number] 11:08:00 Test Item Value Reference Range Interpretation Comments Chloride Lvl (test code = Chloride Lvl) 103 95-109 [facility] [id number] 11:08:00 Test Item Value Reference Range Interpretation Comments CO2 (test code = CO2) 31 24-32 [facility] [id number] 11:08:00 Test Item Value Reference Range Interpretation Comments Calcium Lvl (test code = Calcium Lvl) 8.9 8.5-10.5 [facility] [employer] [id number] 11:08:00 Test Item Value Reference Range Interpretation Comments Total Protein (test code = Total 7.5 6.4-8.4 Protein) [facility] [id number] 11:08:00 Test Item Value Reference Range Interpretation Comments Albumin Lvl (test code = Albumin Lvl) 3.0 3.5-5.0 [facility] [employer] [id number] 11:08:00 Test Item Value Reference Range Interpretation Comments ALT (test code = ALT) 20 See_Comment [Auto mated message] The system which ge nerated this result transmit tae reference range : <=65. The reference range was not used to interpr et this result as ludmila l/abnormal. [facility] [employer] [id number] 11:08:00 Test Item Value Reference Range Interpretation Comments AST (test code = AST) 22 See_Comment [Auto mated message] The system which ge nerated this result transmit tae reference range : <=37. The reference range was not used to interpr et this result as ludmila l/abnormal. [facility] [employer] [id number] 11:08:00 Test Item Value Reference Range Interpretation Comments Alk Phos (test code = Alk Phos) 54 39-136 [facility] [employer] [id number] 11:08:00 Test Item Value Reference Range Interpretation Comments Bili Total (test code = Bili Total) 0.4 0.2-1.3 [facility] [employer] [id number] 11:08:00 Test Item Value Reference Range Interpretation Comments AGAP (test code = AGAP) 7.6 10.0-20.0 [place] [id number] 11:08:00 Test Item Value Reference Range Interpretation Comments B/C Ratio (test code = B/C Ratio) 6 1 6-25 [place] [id number] 11:08:00 Test Item Value Reference Range Interpretation Comments Globulin (test code = Globulin) 4.5 2.7-4.2 [place] [id number] 11:08:00 Test Item Value Reference Range Interpretation Comments A/G Ratio (test code = A/G Ratio) 0.7 1 0.7-1.6 [place] [id number] 11:08:00 Test Item Value Reference Range Interpretation Comments eGFR (test code = eGFR) 125 [place] [id number] 11:08:00 Test Item Value Reference Range Interpretation Comments Lipase Lvl (test code = Lipase Lvl) 443 36-393 [place] [id number] 11:08:00 Test Item Value Reference Range Interpretation Comments Segs (test code = Segs) 59.6 45.0-75.0 [place] [id number] 11:08:00 Test Item Value Reference Range Interpretation Comments Lymphocytes (test code = Lymphocytes) 23.8 20.0-40.0 [place] [id number] 11:08:00 Test Item Value Reference Range Interpretation Comments Monocytes (test code = Monocytes) 10.4 2.0-12.0 [place] [id number] 11:08:00 Test Item Value Reference Range Interpretation Comments Eosinophils (test code = 5.4 See_Comment [A utomated message] The Eosinophils) system which ge nerated this result tra nsmitted reference range : <=4.0. The reference r hermes was not used to int erpret this result as normal/abnormal . [place] [address]-03-24 11:08:00 Test Item Value Reference Range Interpretation Comments Basophils (test code = 0.8 See_Comment [Aut omated message] The Basophils) system which ge nerated this result tra nsmitted reference range : <=1.0. The reference r hermes was not used to int erpret this result as normal/abnormal . [place] 044740-03-24 11:08:00 Test Item Value Reference Range Interpretation Comments Neutrophils # (test code = Neutrophils 2.2 1.5-8.1 #) [facility]IrsmeetERMJLFTZGP7567-25-20 11:08:00 Test Item Value Reference Range Interpretation Comments Lymphocytes # (test code = Lymphocytes 0.9 1.0-5.5 #) [facility] CenterGaizducXJXFCIWMLA5336-44-79 11:08:00 Test Item Value Reference Range Interpretation Comments Monocytes # (test code 0.4 See_Comment [Aut omated message] The = Monocytes #) system which generated this result tra nsmitted reference range : <=0.8. The reference r hermes was not used to int erpret this result as normal/abnormal . [facility] CenterNtzipwxEBVYKLQDKI7634-59-06 11:08:00 Test Item Value Reference Range Interpretation Comments Eosinophils # (test code 0.2 See_Comment [A utomated message] The = Eosinophils #) system whic h generated this result tra nsmitted reference range : <=0.5. The reference r hermes was not used to int erpret this result as normal/abnormal . [facility] CenterCxginqdKRNXMNZCFW0620-39-06 11:08:00 Test Item Value Reference Range Interpretation Comments WBC (test code = WBC) 3.7 3.7-10.4 [facility] CenterBqdskhdACLGUWUIND1221-14-75 11:08:00 Test Item Value Reference Range Interpretation Comments RBC (test code = RBC) 4.08 4.70-6.10 [place] 044740-03-24 11:08:00 Test Item Value Reference Range Interpretation Comments Hgb (test code = Hgb) 12.8 14.0-18.0 [facility] CenterBxyflcxGBTFBNDRCZ5318-12-18 11:08:00 Test Item Value Reference Range Interpretation Comments Hct (test code = Hct) 36.5 42.0-54.0 [place] [address]-03-24 11:08:00 Test Item Value Reference Range Interpretation Comments MCV (test code = MCV) 89.5 80.0-94.0 [facility] CenterRtcvpwqKEUBRENPVG3243-50-07 11:08:00 Test Item Value Reference Range Interpretation Comments MCH (test code = MCH) 31.5 pg 27.0-31.0 [facility] CenterTrmugwoLBZSPUJIHO8573-76-97 11:08:00 Test Item Value Reference Range Interpretation Comments MCHC (test code = MCHC) 35.2 32.0-36.0 [facility] CenterPhrujzmEOAEQTNSWN3396-80-89 11:08:00 Test Item Value Reference Range Interpretation Comments RDW (test code = RDW) 14.2 11.5-14.5 [facility]YwzjdjpXRDPBPECTT9188-79-33 11:08:00 Test Item Value Reference Range Interpretation Comments Platelet (test code = Platelet) 172 133-450 [facility] HospitalOoinhlxZNWLGUDKYK9215-16-41 11:08:00 Test Item Value Reference Range Interpretation Comments MPV (test code = MPV) 9.7 7.4-10.4 [facility] CenterObtrifxHWKMMCJGIJ3773-27-12 11:08:00 Test Item Value Reference Range Interpretation Comments C-REACTIVE PROTEIN (test code = 67.1 C-REACTIVE PROTEIN) [facility]2020-03-24 11:08:00 Test Item Value Reference Range Interpretation Comments Glucose Lvl (test code = Glucose Lvl) 107 70-99 [facility]2020-03-24 11:08:00 Test Item Value Reference Range Interpretation Comments BUN (test code = BUN) 4 7-22 [facility]2020-03-24 11:08:00 Test Item Value Reference Range Interpretation Comments Creatinine Lvl (test code = Creatinine 0.66 0.50-1.40 Lvl) [facility]2020-03-24 11:08:00 Test Item Value Reference Range Interpretation Comments Sodium Lvl (test code = Sodium Lvl) 138 135-145 [facility]2020-03-24 11:08:00 Test Item Value Reference Range Interpretation Comments Potassium Lvl (test code = Potassium 3.6 3.5-5.1 Lvl) [facility]2020-03-24 11:08:00 Test Item Value Reference Range Interpretation Comments Chloride Lvl (test code = Chloride Lvl) 103 95-109 [facility]2020-03-24 11:08:00 Test Item Value Reference Range Interpretation Comments CO2 (test code = CO2) 31 24-32 [facility]2020-03-24 11:08:00 Test Item Value Reference Range Interpretation Comments Calcium Lvl (test code = Calcium Lvl) 8.9 8.5-10.5 [facility]2020-03-24 11:08:00 Test Item Value Reference Range Interpretation Comments Total Protein (test code = Total 7.5 6.4-8.4 Protein) [facility] [employer] [id number] 11:08:00 Test Item Value Reference Range Interpretation Comments Albumin Lvl (test code = Albumin Lvl) 3.0 3.5-5.0 [facility] [employer] [id number] 11:08:00 Test Item Value Reference Range Interpretation Comments ALT (test code = ALT) 20 See_Comment [Auto mated message] The system which ge nerated this result transmit tae reference range : <=65. The reference range was not used to interpr et this result as ludmila l/abnormal. [facility] [employer] [id number] 11:08:00 Test Item Value Reference Range Interpretation Comments AST (test code = AST) 22 See_Comment [Auto mated message] The system which ge nerated this result transmit tae reference range : <=37. The reference range was not used to interpr et this result as ludmila l/abnormal. [facility] [employer] [id number] 11:08:00 Test Item Value Reference Range Interpretation Comments Alk Phos (test code = Alk Phos) 54 39-136 [facility] [employer] [id number] 11:08:00 Test Item Value Reference Range Interpretation Comments Bili Total (test code = Bili Total) 0.4 0.2-1.3 [facility] [id number] 11:08:00 Test Item Value Reference Range Interpretation Comments AGAP (test code = AGAP) 7.6 10.0-20.0 [facility] [employer] [id number] 11:08:00 Test Item Value Reference Range Interpretation Comments B/C Ratio (test code = B/C Ratio) 6 1 6-25 [facility] [employer] [id number] 11:08:00 Test Item Value Reference Range Interpretation Comments Globulin (test code = Globulin) 4.5 2.7-4.2 [facility] [employer] [id number] 11:08:00 Test Item Value Reference Range Interpretation Comments A/G Ratio (test code = A/G Ratio) 0.7 1 0.7-1.6 [facility] [employer] [id number] 11:08:00 Test Item Value Reference Range Interpretation Comments eGFR (test code = eGFR) 125 [facility]2020-03-24 11:08:00 Test Item Value Reference Range Interpretation Comments Lipase Lvl (test code = Lipase Lvl) 443 43-393 [facility] CenterNvsqqeoGNIPDOBGUA4159-21-63 11:08:00 Test Item Value Reference Range Interpretation Comments Segs (test code = Segs) 59.6 45.0-75.0 [facility] CenterEvmkaztJECSBPEDFA6495-10-65 11:08:00 Test Item Value Reference Range Interpretation Comments Lymphocytes (test code = Lymphocytes) 23.8 20.0-40.0 [facility] CenterGjgjsipGDBFRNXHSO7524-36-00 11:08:00 Test Item Value Reference Range Interpretation Comments Monocytes (test code = Monocytes) 10.4 2.0-12.0 [facility] CenterGrgpszfIMSXARWSDI6690-30-37 11:08:00 Test Item Value Reference Range Interpretation Comments Eosinophils (test code = 5.4 See_Comment [A utomated message] The Eosinophils) system which ge nerated this result tra nsmitted reference range : <=4.0. The reference r hermes was not used to int erpret this result as normal/abnormal . [facility] CenterWdsfsntKAXUNHTEID2121-32-12 11:08:00 Test Item Value Reference Range Interpretation Comments Basophils (test code = 0.8 See_Comment [Aut omated message] The Basophils) system which ge nerated this result tra nsmitted reference range : <=1.0. The reference r hermes was not used to int erpret this result as normal/abnormal . [facility] CenterAohxuekUXUXFEQYOX8728-44-86 11:08:00 Test Item Value Reference Range Interpretation Comments Neutrophils # (test code = Neutrophils 2.2 1.5-8.1 #) [facility] CenterMkmcpebQZUWRLCAVL7472-77-24 11:08:00 Test Item Value Reference Range Interpretation Comments Lymphocytes # (test code = Lymphocytes 0.9 1.0-5.5 #) [place] 044740-03-24 11:08:00 Test Item Value Reference Range Interpretation Comments Monocytes # (test code 0.4 See_Comment [Aut omated message] The = Monocytes #) system which generated this result tra nsmitted reference range : <=0.8. The reference r hermes was not used to int erpret this result as normal/abnormal . [place] 044740-03-24 11:08:00 Test Item Value Reference Range Interpretation Comments Eosinophils # (test code 0.2 See_Comment [A utomated message] The = Eosinophils #) system whic h generated this result tra nsmitted reference range : <=0.5. The reference r hermes was not used to int erpret this result as normal/abnormal . [facility] CenterIzlysluSYJUZKMPIQ9866-86-36 11:08:00 Test Item Value Reference Range Interpretation Comments WBC (test code = WBC) 3.7 3.7-10.4 [facility] CenterMdbqxdbZJGGYGFDQU0050-81-31 11:08:00 Test Item Value Reference Range Interpretation Comments RBC (test code = RBC) 4.08 4.70-6.10 [facility] CenterDnjjfkjYLUFNEFBXQ1783-32-64 11:08:00 Test Item Value Reference Range Interpretation Comments Hgb (test code = Hgb) 12.8 14.0-18.0 [facility] CenterVcpsrnwSDYGWROIQG3750-02-99 11:08:00 Test Item Value Reference Range Interpretation Comments Hct (test code = Hct) 36.5 42.0-54.0 [facility] CenterCkvyaenZIEJRIELWU7793-68-28 11:08:00 Test Item Value Reference Range Interpretation Comments MCV (test code = MCV) 89.5 80.0-94.0 [facility] CenterAgxvcgpBEVFGSFAOV2052-57-58 11:08:00 Test Item Value Reference Range Interpretation Comments MCH (test code = MCH) 31.5 pg 27.0-31.0 [facility] CenterPjzronpMZIZRCTBTJ8632-34-51 11:08:00 Test Item Value Reference Range Interpretation Comments MCHC (test code = MCHC) 35.2 32.0-36.0 [facility] CenterSmxpbgpCZJOHTCFPJ9638-74-80 11:08:00 Test Item Value Reference Range Interpretation Comments RDW (test code = RDW) 14.2 11.5-14.5 [facility] CenterQfxmyuiSXEZRARCFT7387-15-17 11:08:00 Test Item Value Reference Range Interpretation Comments Platelet (test code = Platelet) 172 133-450 [facility] CenterWqmenevKCBFXXFVOP2576-56-64 11:08:00 Test Item Value Reference Range Interpretation Comments MPV (test code = MPV) 9.7 7.4-10.4 [facility] CenterJuxmmotQHCGIJOTMQ7646-95-87 11:08:00 Test Item Value Reference Range Interpretation Comments C-REACTIVE PROTEIN (test code = 67.1 C-REACTIVE PROTEIN) [place] 735340-03-24 11:08:00 Test Item Value Reference Range Interpretation Comments Glucose Lvl (test code = Glucose Lvl) 107 70-99 [place] 735340-03-24 11:08:00 Test Item Value Reference Range Interpretation Comments BUN (test code = BUN) 4 7-22 [place] 735340-03-24 11:08:00 Test Item Value Reference Range Interpretation Comments Creatinine Lvl (test code = Creatinine 0.66 0.50-1.40 Lvl) [facility]2020-03-24 11:08:00 Test Item Value Reference Range Interpretation Comments Sodium Lvl (test code = Sodium Lvl) 138 135-145 [place] 735340-03-24 11:08:00 Test Item Value Reference Range Interpretation Comments Potassium Lvl (test code = Potassium 3.6 3.5-5.1 Lvl) [facility]2020-03-24 11:08:00 Test Item Value Reference Range Interpretation Comments Chloride Lvl (test code = Chloride Lvl) 103 95-109 [place] 735340-03-24 11:08:00 Test Item Value Reference Range Interpretation Comments CO2 (test code = CO2) 31 24-32 [facility]2020-03-24 11:08:00 Test Item Value Reference Range Interpretation Comments Calcium Lvl (test code = Calcium Lvl) 8.9 8.5-10.5 [place] 735340-03-24 11:08:00 Test Item Value Reference Range Interpretation Comments Total Protein (test code = Total 7.5 6.4-8.4 Protein) [place] 735340-03-24 11:08:00 Test Item Value Reference Range Interpretation Comments Albumin Lvl (test code = Albumin Lvl) 3.0 3.5-5.0 [facility]WHO[facility] [id number] 11:08:00 Test Item Value Reference Range Interpretation Comments ALT (test code = ALT) 20 See_Comment [Auto mated message] The system which ge nerated this result transmit tae reference range : <=65. The reference range was not used to interpr et this result as ludmila l/abnormal. [facility]WHO[facility] [id number] 11:08:00 Test Item Value Reference Range Interpretation Comments AST (test code = AST) 22 See_Comment [Auto mated message] The system which ge nerated this result transmit tae reference range : <=37. The reference range was not used to interpr et this result as ludmila l/abnormal. [facility] [id number] 11:08:00 Test Item Value Reference Range Interpretation Comments Alk Phos (test code = Alk Phos) 54 39-136 [facility] [id number] 11:08:00 Test Item Value Reference Range Interpretation Comments Bili Total (test code = Bili Total) 0.4 0.2-1.3 [facility] [id number] 11:08:00 Test Item Value Reference Range Interpretation Comments AGAP (test code = AGAP) 7.6 10.0-20.0 [facility] [id number] 11:08:00 Test Item Value Reference Range Interpretation Comments B/C Ratio (test code = B/C Ratio) 6 1 6-25 [facility]WHO[facility] [id number] 11:08:00 Test Item Value Reference Range Interpretation Comments Globulin (test code = Globulin) 4.5 2.7-4.2 [facility] [id number] 11:08:00 Test Item Value Reference Range Interpretation Comments A/G Ratio (test code = A/G Ratio) 0.7 1 0.7-1.6 [facility] [id number] 11:08:00 Test Item Value Reference Range Interpretation Comments eGFR (test code = eGFR) 125 [facility] [id number] 11:08:00 Test Item Value Reference Range Interpretation Comments Lipase Lvl (test code = Lipase Lvl) 443 73-393 [facility] CenterWrqqetlICIAYQMNFC4116-59-16 11:08:00 Test Item Value Reference Range Interpretation Comments Segs (test code = Segs) 59.6 45.0-75.0 [facility] CenterCrtqvjtZXZAFKRKKQ8112-39-49 11:08:00 Test Item Value Reference Range Interpretation Comments Lymphocytes (test code = Lymphocytes) 23.8 20.0-40.0 [facility] CenterPlabitkNWOUAQOWCH8298-62-95 11:08:00 Test Item Value Reference Range Interpretation Comments Monocytes (test code = Monocytes) 10.4 2.0-12.0 [facility] CenterZmftrxuVFDLNMCRWN4751-01-28 11:08:00 Test Item Value Reference Range Interpretation Comments Eosinophils (test code = 5.4 See_Comment [A utomated message] The Eosinophils) system which ge nerated this result tra nsmitted reference range : <=4.0. The reference r hermes was not used to int erpret this result as normal/abnormal . [facility] CenterCunkefqBMULEUZLHQ0337-78-02 11:08:00 Test Item Value Reference Range Interpretation Comments Basophils (test code = 0.8 See_Comment [Aut omated message] The Basophils) system which ge nerated this result tra nsmitted reference range : <=1.0. The reference r hermes was not used to int erpret this result as normal/abnormal . [facility] CenterDqphfefWUTKMRIODU0985-15-33 11:08:00 Test Item Value Reference Range Interpretation Comments Neutrophils # (test code = Neutrophils 2.2 1.5-8.1 #) [facility] CenterNfztgsvPHGYTCTURA6788-40-18 11:08:00 Test Item Value Reference Range Interpretation Comments Lymphocytes # (test code = Lymphocytes 0.9 1.0-5.5 #) [facility] CenterNqnydepXBNKDYSTWH9363-24-18 11:08:00 Test Item Value Reference Range Interpretation Comments Monocytes # (test code 0.4 See_Comment [Aut omated message] The = Monocytes #) system which generated this result tra nsmitted reference range : <=0.8. The reference r hermes was not used to int erpret this result as normal/abnormal . [facility] CenterUavinqnJFVYRUBWCE9806-54-56 11:08:00 Test Item Value Reference Range Interpretation Comments Eosinophils # (test code 0.2 See_Comment [A utomated message] The = Eosinophils #) system whic h generated this result tra nsmitted reference range : <=0.5. The reference r hermes was not used to int erpret this result as normal/abnormal . [facility] CenterBrsnhnpLGHTODGPJQ5049-21-87 11:08:00 Test Item Value Reference Range Interpretation Comments WBC (test code = WBC) 3.7 3.7-10.4 [facility] CenterRctfgrhKYVXVXFDVA6212-96-01 11:08:00 Test Item Value Reference Range Interpretation Comments RBC (test code = RBC) 4.08 4.70-6.10 [facility] CenterAjnznlsOGUSHVUZIB4381-97-64 11:08:00 Test Item Value Reference Range Interpretation Comments Hgb (test code = Hgb) 12.8 14.0-18.0 [facility] CenterLjoqvwwOTLDNMKFPY8217-56-01 11:08:00 Test Item Value Reference Range Interpretation Comments Hct (test code = Hct) 36.5 42.0-54.0 [facility] HospitalGhrjdzoDTBGHWSVQL5010-94-32 11:08:00 Test Item Value Reference Range Interpretation Comments MCV (test code = MCV) 89.5 80.0-94.0 [facility] CenterFcnulutTGLXVVFQVD7235-97-82 11:08:00 Test Item Value Reference Range Interpretation Comments MCH (test code = MCH) 31.5 pg 27.0-31.0 [facility] CenterJzgggsjEMCCPTCQTH8856-53-98 11:08:00 Test Item Value Reference Range Interpretation Comments MCHC (test code = MCHC) 35.2 32.0-36.0 [facility] HospitalMxpldgvFWYSQXUNXP4588-89-87 11:08:00 Test Item Value Reference Range Interpretation Comments RDW (test code = RDW) 14.2 11.5-14.5 [facility] CenterJjrsyjfXKIXHIGATW9362-14-07 11:08:00 Test Item Value Reference Range Interpretation Comments Platelet (test code = Platelet) 172 133-450 [facility] CenterRkxrmhzDHSTJIGIAH9243-15-95 11:08:00 Test Item Value Reference Range Interpretation Comments MPV (test code = MPV) 9.7 7.4-10.4 [facility] CenterSvhpeiqIBXWWSAZXN8867-11-15 11:08:00 Test Item Value Reference Range Interpretation Comments C-REACTIVE PROTEIN (test code = 67.1 C-REACTIVE PROTEIN) [facility]WHO[facility] [id number] 11:08:00 Test Item Value Reference Range Interpretation Comments Glucose Lvl (test code = Glucose Lvl) 107 70-99 [facility] [id number] 11:08:00 Test Item Value Reference Range Interpretation Comments BUN (test code = BUN) 4 7-22 [facility]2020-03-24 11:08:00 Test Item Value Reference Range Interpretation Comments Creatinine Lvl (test code = Creatinine 0.66 0.50-1.40 Lvl) [facility]2020-03-24 11:08:00 Test Item Value Reference Range Interpretation Comments Sodium Lvl (test code = Sodium Lvl) 138 135-145 [facility] [employer] [id number] 11:08:00 Test Item Value Reference Range Interpretation Comments Potassium Lvl (test code = Potassium 3.6 3.5-5.1 Lvl) [facility] [employer] [id number] 11:08:00 Test Item Value Reference Range Interpretation Comments Chloride Lvl (test code = Chloride Lvl) 103 95-109 [facility] [employer] [id number] 11:08:00 Test Item Value Reference Range Interpretation Comments CO2 (test code = CO2) 31 24-32 [facility] [employer] [id number] 11:08:00 Test Item Value Reference Range Interpretation Comments Calcium Lvl (test code = Calcium Lvl) 8.9 8.5-10.5 [facility] [employer] [id number] 11:08:00 Test Item Value Reference Range Interpretation Comments Total Protein (test code = Total 7.5 6.4-8.4 Protein) [facility] [employer] [id number] 11:08:00 Test Item Value Reference Range Interpretation Comments Albumin Lvl (test code = Albumin Lvl) 3.0 3.5-5.0 [facility] [employer] [id number] 11:08:00 Test Item Value Reference Range Interpretation Comments ALT (test code = ALT) 20 See_Comment [Auto mated message] The system which ge nerated this result transmit tae reference range : <=65. The reference range was not used to interpr et this result as ludmila l/abnormal. [facility] [employer] [id number] 11:08:00 Test Item Value Reference Range Interpretation Comments AST (test code = AST) 22 See_Comment [Auto mated message] The system which ge nerated this result transmit tae reference range : <=37. The reference range was not used to interpr et this result as ludmila l/abnormal. [facility] [employer] [id number] 11:08:00 Test Item Value Reference Range Interpretation Comments Alk Phos (test code = Alk Phos) 54 39-136 [facility] [employer] [id number] 11:08:00 Test Item Value Reference Range Interpretation Comments Bili Total (test code = Bili Total) 0.4 0.2-1.3 [place] 735340-03-24 11:08:00 Test Item Value Reference Range Interpretation Comments AGAP (test code = AGAP) 7.6 10.0-20.0 [place] 735340-03-24 11:08:00 Test Item Value Reference Range Interpretation Comments B/C Ratio (test code = B/C Ratio) 6 1 6-25 [place] [address]-03-24 11:08:00 Test Item Value Reference Range Interpretation Comments Globulin (test code = Globulin) 4.5 2.7-4.2 [place] [address]-03-24 11:08:00 Test Item Value Reference Range Interpretation Comments A/G Ratio (test code = A/G Ratio) 0.7 1 0.7-1.6 [place] [address]-03-24 11:08:00 Test Item Value Reference Range Interpretation Comments eGFR (test code = eGFR) 125 [place] 735340-03-24 11:08:00 Test Item Value Reference Range Interpretation Comments Lipase Lvl (test code = Lipase Lvl) 443 73393 [place] 044740-03-24 11:08:00 Test Item Value Reference Range Interpretation Comments Segs (test code = Segs) 59.6 45.0-75.0 [place] [address]-03-24 11:08:00 Test Item Value Reference Range Interpretation Comments Lymphocytes (test code = Lymphocytes) 23.8 20.0-40.0 [place] [address]-03-24 11:08:00 Test Item Value Reference Range Interpretation Comments Monocytes (test code = Monocytes) 10.4 2.0-12.0 [place] [address]-03-24 11:08:00 Test Item Value Reference Range Interpretation Comments Eosinophils (test code = 5.4 See_Comment [A utomated message] The Eosinophils) system which ge nerated this result tra nsmitted reference range : <=4.0. The reference r hermes was not used to int erpret this result as normal/abnormal . [place] [address]-03-24 11:08:00 Test Item Value Reference Range Interpretation Comments Basophils (test code = 0.8 See_Comment [Aut omated message] The Basophils) system which ge nerated this result tra nsmitted reference range : <=1.0. The reference r hermes was not used to int erpret this result as normal/abnormal . [facility] CenterRtkrpfnAIOUCBIJCL3909-07-79 11:08:00 Test Item Value Reference Range Interpretation Comments Neutrophils # (test code = Neutrophils 2.2 1.5-8.1 #) [facility] CenterWbahpibGPUJIQRVRC4983-34-49 11:08:00 Test Item Value Reference Range Interpretation Comments Lymphocytes # (test code = Lymphocytes 0.9 1.0-5.5 #) [facility] CenterZpicgwcVMEAYOGUSD5073-47-32 11:08:00 Test Item Value Reference Range Interpretation Comments Monocytes # (test code 0.4 See_Comment [Aut omated message] The = Monocytes #) system which generated this result tra nsmitted reference range : <=0.8. The reference r hermes was not used to int erpret this result as normal/abnormal . [facility] CenterJeqxvpvWTUXQGWLBF0491-69-04 11:08:00 Test Item Value Reference Range Interpretation Comments Eosinophils # (test code 0.2 See_Comment [A utomated message] The = Eosinophils #) system whic h generated this result tra nsmitted reference range : <=0.5. The reference r hermes was not used to int erpret this result as normal/abnormal . [facility] CenterLcfyfnnWUAFRLNSJB2095-97-80 11:08:00 Test Item Value Reference Range Interpretation Comments WBC (test code = WBC) 3.7 3.7-10.4 [place] 044740-03-24 11:08:00 Test Item Value Reference Range Interpretation Comments RBC (test code = RBC) 4.08 4.70-6.10 [place] 044740-03-24 11:08:00 Test Item Value Reference Range Interpretation Comments Hgb (test code = Hgb) 12.8 14.0-18.0 [place] [address]-03-24 11:08:00 Test Item Value Reference Range Interpretation Comments Hct (test code = Hct) 36.5 42.0-54.0 [place] 044740-03-24 11:08:00 Test Item Value Reference Range Interpretation Comments MCV (test code = MCV) 89.5 80.0-94.0 [place] 044740-03-24 11:08:00 Test Item Value Reference Range Interpretation Comments MCH (test code = MCH) 31.5 pg 27.0-31.0 [facility]McunvocWMDDAUBMMF0461-95-75 11:08:00 Test Item Value Reference Range Interpretation Comments MCHC (test code = MCHC) 35.2 32.0-36.0 [facility] HospitalSqybcqoDKFMDIYIRL0622-69-97 11:08:00 Test Item Value Reference Range Interpretation Comments RDW (test code = RDW) 14.2 11.5-14.5 [facility] CenterWtjemiiUVKFHKASYZ5595-24-43 11:08:00 Test Item Value Reference Range Interpretation Comments Platelet (test code = Platelet) 172 133-450 [facility] CenterWatvfecTSADTHRWXZ4474-36-38 11:08:00 Test Item Value Reference Range Interpretation Comments MPV (test code = MPV) 9.7 7.4-10.4 [facility] CenterGwhomqyVHBHGTSYZD5142-68-40 11:08:00 Test Item Value Reference Range Interpretation Comments C-REACTIVE PROTEIN (test code = 67.1 C-REACTIVE PROTEIN) [facility]2020-03-23 08:57:00 Test Item Value Reference Range Interpretation Comments Lipase Lvl (test code = Lipase Lvl) 722 73-393 [facility]2020-03-23 08:57:00 Test Item Value Reference Range Interpretation Comments Amylase Lvl (test code = Amylase Lvl) 96 25-115 [facility]2020-03-23 08:57:00 Test Item Value Reference Range Interpretation Comments Glucose Lvl (test code = Glucose Lvl) 115 70-99 [facility]2020-03-23 08:57:00 Test Item Value Reference Range Interpretation Comments BUN (test code = BUN) 3 7-22 [facility]2020-03-23 08:57:00 Test Item Value Reference Range Interpretation Comments Creatinine Lvl (test code = Creatinine 0.64 0.50-1.40 Lvl) [facility]2020-03-23 08:57:00 Test Item Value Reference Range Interpretation Comments Sodium Lvl (test code = Sodium Lvl) 138 135-145 [place] 735340-03-23 08:57:00 Test Item Value Reference Range Interpretation Comments Potassium Lvl (test code = Potassium 3.4 3.5-5.1 Lvl) [facility]2020-03-23 08:57:00 Test Item Value Reference Range Interpretation Comments Chloride Lvl (test code = Chloride Lvl) 104 95-109 [place] [address]-03-23 08:57:00 Test Item Value Reference Range Interpretation Comments CO2 (test code = CO2) 30 24-32 [place] [address]-03-23 08:57:00 Test Item Value Reference Range Interpretation Comments AGAP (test code = AGAP) 7.4 10.0-20.0 [place] [address]-03-23 08:57:00 Test Item Value Reference Range Interpretation Comments Calcium Lvl (test code = Calcium Lvl) 8.6 8.5-10.5 [facility] CenterAmigoCATJOSHUA [facility] [id number] 08:57:00 Test Item Value Reference Range Interpretation Comments B/C Ratio (test code = B/C Ratio) 5 1 6-[address]03-23 08:57:00 Test Item Value Reference Range Interpretation Comments Total Protein (test code = Total 6.9 6.4-8.4 Protein) [address]03-23 08:57:00 Test Item Value Reference Range Interpretation Comments Albumin Lvl (test code = Albumin Lvl) 2.7 3.5-5.0 [facility] CenterWHOOP [id number] 08:57:00 Test Item Value Reference Range Interpretation Comments Globulin (test code = Globulin) 4.2 2.7-4.2 [facility] [id number] 08:57:00 Test Item Value Reference Range Interpretation Comments A/G Ratio (test code = A/G Ratio) 0.6 1 0.7-1.6 [facility] CenterWHO[facility] [id number] 08:57:00 Test Item Value Reference Range Interpretation Comments ALT (test code = ALT) 16 See_Comment [Auto mated message] The system which ge nerated this result transmit tae reference range : <=65. The reference range was not used to interpr et this result as ludmila l/abnormal. [facility] [id number] 08:57:00 Test Item Value Reference Range Interpretation Comments AST (test code = AST) 14 See_Comment [Auto mated message] The system which ge nerated this result transmit tae reference range : <=37. The reference range was not used to interpr et this result as ludmila l/abnormal. [place] 735340-03-23 08:57:00 Test Item Value Reference Range Interpretation Comments Alk Phos (test code = Alk Phos) 53 39-136 [place] [address]-03-23 08:57:00 Test Item Value Reference Range Interpretation Comments Bili Total (test code = Bili Total) 0.6 0.2-1.3 [facility] [id number] 08:57:00 Test Item Value Reference Range Interpretation Comments eGFR (test code = eGFR) 127 [place] [address]-03-23 08:57:00 Test Item Value Reference Range Interpretation Comments Segs (test code = Segs) 63.5 45.0-75.0 [address]03-23 08:57:00 Test Item Value Reference Range Interpretation Comments Lymphocytes (test code = Lymphocytes) 18.5 20.0-40.0 [place] [address]-03-23 08:57:00 Test Item Value Reference Range Interpretation Comments Monocytes (test code = Monocytes) 12.5 2.0-12.0 [place] [address]-03-23 08:57:00 Test Item Value Reference Range Interpretation Comments Eosinophils (test code = 5.0 See_Comment [A utomated message] The Eosinophils) system which ge nerated this result tra nsmitted reference range : <=4.0. The reference r hermes was not used to int erpret this result as normal/abnormal . [place] [address]-03-23 08:57:00 Test Item Value Reference Range Interpretation Comments Basophils (test code = 0.5 See_Comment [Aut omated message] The Basophils) system which ge nerated this result tra nsmitted reference range : <=1.0. The reference r hermes was not used to int erpret this result as normal/abnormal . [place] [address]-03-23 08:57:00 Test Item Value Reference Range Interpretation Comments Neutrophils # (test code = Neutrophils 2.8 1.5-8.1 #) [place] [address]-03-23 08:57:00 Test Item Value Reference Range Interpretation Comments Lymphocytes # (test code = Lymphocytes 0.8 1.0-5.5 #) [address]03-23 08:57:00 Test Item Value Reference Range Interpretation Comments Monocytes # (test code 0.6 See_Comment [Aut omated message] The = Monocytes #) system which generated this result tra nsmitted reference range : <=0.8. The reference r hermes was not used to int erpret this result as normal/abnormal . [facility] CenterMcsbgptYIWZQQCJAQ8329-05-42 08:57:00 Test Item Value Reference Range Interpretation Comments Eosinophils # (test code 0.2 See_Comment [A utomated message] The = Eosinophils #) system whic h generated this result tra nsmitted reference range : <=0.5. The reference r hermes was not used to int erpret this result as normal/abnormal . [facility] CenterRpwtbqcVNRZDRCPWC4171-61-73 08:57:00 Test Item Value Reference Range Interpretation Comments WBC (test code = WBC) 4.5 3.7-10.4 [place] [address]-03-23 08:57:00 Test Item Value Reference Range Interpretation Comments RBC (test code = RBC) 3.68 4.70-6.10 [place] [address]-03-23 08:57:00 Test Item Value Reference Range Interpretation Comments Hgb (test code = Hgb) 11.7 14.0-18.0 [place] [address]-03-23 08:57:00 Test Item Value Reference Range Interpretation Comments Hct (test code = Hct) 32.6 42.0-54.0 [place] [address]-03-23 08:57:00 Test Item Value Reference Range Interpretation Comments MCV (test code = MCV) 88.5 80.0-94.0 [place] [address]-03-23 08:57:00 Test Item Value Reference Range Interpretation Comments MCH (test code = MCH) 31.8 pg 27.0-31.0 [place] [address]-03-23 08:57:00 Test Item Value Reference Range Interpretation Comments MCHC (test code = MCHC) 35.9 32.0-36.0 [place] [address]-03-23 08:57:00 Test Item Value Reference Range Interpretation Comments RDW (test code = RDW) 13.9 11.5-14.5 [place] [address]-03-23 08:57:00 Test Item Value Reference Range Interpretation Comments Platelet (test code = Platelet) 137 133-450 [facility] CenterEqhnzqiBAJAFSKWXT9887-28-09 08:57:00 Test Item Value Reference Range Interpretation Comments MPV (test code = MPV) 9.3 7.4-10.4 [place] 735340-03-23 08:57:00 Test Item Value Reference Range Interpretation Comments Lipase Lvl (test code = Lipase Lvl) 722 73-393 [place] 735340-03-23 08:57:00 Test Item Value Reference Range Interpretation Comments Amylase Lvl (test code = Amylase Lvl) 96 25-115 [place] [address]-03-23 08:57:00 Test Item Value Reference Range Interpretation Comments Glucose Lvl (test code = Glucose Lvl) 115 70-99 [facility]2020-03-23 08:57:00 Test Item Value Reference Range Interpretation Comments BUN (test code = BUN) 3 7-22 [place] 735340-03-23 08:57:00 Test Item Value Reference Range Interpretation Comments Creatinine Lvl (test code = Creatinine 0.64 0.50-1.40 Lvl) [facility]2020-03-23 08:57:00 Test Item Value Reference Range Interpretation Comments Sodium Lvl (test code = Sodium Lvl) 138 135-145 [facility]2020-03-23 08:57:00 Test Item Value Reference Range Interpretation Comments Potassium Lvl (test code = Potassium 3.4 3.5-5.1 Lvl) [facility]2020-03-23 08:57:00 Test Item Value Reference Range Interpretation Comments Chloride Lvl (test code = Chloride Lvl) 104 95-109 [place] 735340-03-23 08:57:00 Test Item Value Reference Range Interpretation Comments CO2 (test code = CO2) 30 24-32 [facility]2020-03-23 08:57:00 Test Item Value Reference Range Interpretation Comments AGAP (test code = AGAP) 7.4 10.0-20.0 [facility]2020-03-23 08:57:00 Test Item Value Reference Range Interpretation Comments Calcium Lvl (test code = Calcium Lvl) 8.6 8.5-10.5 [place] [address]-03-23 08:57:00 Test Item Value Reference Range Interpretation Comments B/C Ratio (test code = B/C Ratio) 5 1 6-[address]03-23 08:57:00 Test Item Value Reference Range Interpretation Comments Total Protein (test code = Total 6.9 6.4-8.4 Protein) [address]03-23 08:57:00 Test Item Value Reference Range Interpretation Comments Albumin Lvl (test code = Albumin Lvl) 2.7 3.5-5.0 [address]03-23 08:57:00 Test Item Value Reference Range Interpretation Comments Globulin (test code = Globulin) 4.2 2.7-4.[address]03-23 08:57:00 Test Item Value Reference Range Interpretation Comments A/G Ratio (test code = A/G Ratio) 0.6 1 0.7-1.6 [address]03-23 08:57:00 Test Item Value Reference Range Interpretation Comments ALT (test code = ALT) 16 See_Comment [Auto mated message] The system which ge nerated this result transmit tae reference range : <=65. The reference range was not used to interpr et this result as ludmila l/abnormal. [place] [address]-03-23 08:57:00 Test Item Value Reference Range Interpretation Comments AST (test code = AST) 14 See_Comment [Auto mated message] The system which ge nerated this result transmit tae reference range : <=37. The reference range was not used to interpr et this result as ludmila l/abnormal. [place] 735340-03-23 08:57:00 Test Item Value Reference Range Interpretation Comments Alk Phos (test code = Alk Phos) 53 39-136 [place] [address]-03-23 08:57:00 Test Item Value Reference Range Interpretation Comments Bili Total (test code = Bili Total) 0.6 0.2-1.3 [place] [address]-03-23 08:57:00 Test Item Value Reference Range Interpretation Comments eGFR (test code = eGFR) 127 [facility] CenterNzdvaibUZZIBCKDNC1151-60-36 08:57:00 Test Item Value Reference Range Interpretation Comments Segs (test code = Segs) 63.5 45.0-75.0 [place] [address]-03-23 08:57:00 Test Item Value Reference Range Interpretation Comments Lymphocytes (test code = Lymphocytes) 18.5 20.0-40.0 [place] [address]-03-23 08:57:00 Test Item Value Reference Range Interpretation Comments Monocytes (test code = Monocytes) 12.5 2.0-12.0 [place] [address]-03-23 08:57:00 Test Item Value Reference Range Interpretation Comments Eosinophils (test code = 5.0 See_Comment [A utomated message] The Eosinophils) system which ge nerated this result tra nsmitted reference range : <=4.0. The reference r hermes was not used to int erpret this result as normal/abnormal . [place] [address]-03-23 08:57:00 Test Item Value Reference Range Interpretation Comments Basophils (test code = 0.5 See_Comment [Aut omated message] The Basophils) system which ge nerated this result tra nsmitted reference range : <=1.0. The reference r hermes was not used to int erpret this result as normal/abnormal . [place] 044740-03-23 08:57:00 Test Item Value Reference Range Interpretation Comments Neutrophils # (test code = Neutrophils 2.8 1.5-8.1 #) [place] [address]-03-23 08:57:00 Test Item Value Reference Range Interpretation Comments Lymphocytes # (test code = Lymphocytes 0.8 1.0-5.5 #) [place] [address]-03-23 08:57:00 Test Item Value Reference Range Interpretation Comments Monocytes # (test code 0.6 See_Comment [Aut omated message] The = Monocytes #) system which generated this result tra nsmitted reference range : <=0.8. The reference r hermes was not used to int erpret this result as normal/abnormal . [place] [address]-03-23 08:57:00 Test Item Value Reference Range Interpretation Comments Eosinophils # (test code 0.2 See_Comment [A utomated message] The = Eosinophils #) system ic h generated this result tra nsmitted reference range : <=0.5. The reference r hermes was not used to int erpret this result as normal/abnormal . [facility] CenterLzaaxciPZQBBSEDAK5676-91-92 08:57:00 Test Item Value Reference Range Interpretation Comments WBC (test code = WBC) 4.5 3.7-10.4 [facility] CenterSxnohphKXVCWYAKOI7155-47-66 08:57:00 Test Item Value Reference Range Interpretation Comments RBC (test code = RBC) 3.68 4.70-6.10 [place] 044740-03-23 08:57:00 Test Item Value Reference Range Interpretation Comments Hgb (test code = Hgb) 11.7 14.0-18.0 [facility] HospitalKbjbjlpHGPLSLNHUK8649-96-09 08:57:00 Test Item Value Reference Range Interpretation Comments Hct (test code = Hct) 32.6 42.0-54.0 [facility] HospitalDvzfusjWZOZRSLPXV4414-23-31 08:57:00 Test Item Value Reference Range Interpretation Comments MCV (test code = MCV) 88.5 80.0-94.0 [facility] HospitalMpqphubGSZWHGYBGD8956-14-34 08:57:00 Test Item Value Reference Range Interpretation Comments MCH (test code = MCH) 31.8 pg 27.0-31.0 [facility] HospitalQjauupyMNICTLSCWL5876-85-09 08:57:00 Test Item Value Reference Range Interpretation Comments MCHC (test code = MCHC) 35.9 32.0-36.0 [facility] HospitalBiiicacXFCSDAEJCS9167-73-68 08:57:00 Test Item Value Reference Range Interpretation Comments RDW (test code = RDW) 13.9 11.5-14.5 [facility] HospitalHsivmwgWNYFQZYNYG9041-79-91 08:57:00 Test Item Value Reference Range Interpretation Comments Platelet (test code = Platelet) 137 133-450 [facility] CenterXncqgpxEUXCBIPJFK8176-68-47 08:57:00 Test Item Value Reference Range Interpretation Comments MPV (test code = MPV) 9.3 7.4-10.4 [facility] [id number] 08:57:00 Test Item Value Reference Range Interpretation Comments Lipase Lvl (test code = Lipase Lvl) 722 80-393 [facility] [id number] 08:57:00 Test Item Value Reference Range Interpretation Comments Amylase Lvl (test code = Amylase Lvl) 96 25-115 [facility] [id number] 08:57:00 Test Item Value Reference Range Interpretation Comments Glucose Lvl (test code = Glucose Lvl) 115 70-99 [place] 735340-03-23 08:57:00 Test Item Value Reference Range Interpretation Comments BUN (test code = BUN) 3 7-22 [place] 735340-03-23 08:57:00 Test Item Value Reference Range Interpretation Comments Creatinine Lvl (test code = Creatinine 0.64 0.50-1.40 Lvl) [place] 735340-03-23 08:57:00 Test Item Value Reference Range Interpretation Comments Sodium Lvl (test code = Sodium Lvl) 138 135-145 [place] [address]-03-23 08:57:00 Test Item Value Reference Range Interpretation Comments Potassium Lvl (test code = Potassium 3.4 3.5-5.1 Lvl) [place] [address]-03-23 08:57:00 Test Item Value Reference Range Interpretation Comments Chloride Lvl (test code = Chloride Lvl) 104 95-109 [place] 735340-03-23 08:57:00 Test Item Value Reference Range Interpretation Comments CO2 (test code = CO2) 30 24-32 [place] 735340-03-23 08:57:00 Test Item Value Reference Range Interpretation Comments AGAP (test code = AGAP) 7.4 10.0-20.0 [place] 735340-03-23 08:57:00 Test Item Value Reference Range Interpretation Comments Calcium Lvl (test code = Calcium Lvl) 8.6 8.5-10.5 [place] 735340-03-23 08:57:00 Test Item Value Reference Range Interpretation Comments B/C Ratio (test code = B/C Ratio) 5 1 6-25 [place] [address]-03-23 08:57:00 Test Item Value Reference Range Interpretation Comments Total Protein (test code = Total 6.9 6.4-8.4 Protein) [place] 735340-03-23 08:57:00 Test Item Value Reference Range Interpretation Comments Albumin Lvl (test code = Albumin Lvl) 2.7 3.5-5.0 [place] 735340-03-23 08:57:00 Test Item Value Reference Range Interpretation Comments Globulin (test code = Globulin) 4.2 2.7-4.2 [facility] CenterAmigoCAT[address]03-23 08:57:00 Test Item Value Reference Range Interpretation Comments A/G Ratio (test code = A/G Ratio) 0.6 1 0.7-1.6 [address]03-23 08:57:00 Test Item Value Reference Range Interpretation Comments ALT (test code = ALT) 16 See_Comment [Auto mated message] The system which ge nerated this result transmit tae reference range : <=65. The reference range was not used to interpr et this result as ludmila l/abnormal. [facility] [id number] 08:57:00 Test Item Value Reference Range Interpretation Comments AST (test code = AST) 14 See_Comment [Auto mated message] The system which ge nerated this result transmit tae reference range : <=37. The reference range was not used to interpr et this result as ludmila l/abnormal. [facility] [id number] 08:57:00 Test Item Value Reference Range Interpretation Comments Alk Phos (test code = Alk Phos) 53 39-136 [facility] [id number] 08:57:00 Test Item Value Reference Range Interpretation Comments Bili Total (test code = Bili Total) 0.6 0.2-1.3 [facility] [id number] 08:57:00 Test Item Value Reference Range Interpretation Comments eGFR (test code = eGFR) 127 [facility] CenterWqlffvkHYJCWETSDY3214-17-01 08:57:00 Test Item Value Reference Range Interpretation Comments Segs (test code = Segs) 63.5 45.0-75.0 [facility] CenterVxjqltvWVJTHZCMZI6288-70-54 08:57:00 Test Item Value Reference Range Interpretation Comments Lymphocytes (test code = Lymphocytes) 18.5 20.0-40.0 [facility] CenterMfiblboALYAQVBZUO0870-31-28 08:57:00 Test Item Value Reference Range Interpretation Comments Monocytes (test code = Monocytes) 12.5 2.0-12.0 [facility] CenterAedkcchIVRWBEAFIQ7182-27-32 08:57:00 Test Item Value Reference Range Interpretation Comments Eosinophils (test code = 5.0 See_Comment [A utomated message] The Eosinophils) system which ge nerated this result tra nsmitted reference range : <=4.0. The reference r hermes was not used to int erpret this result as normal/abnormal . [place] [address]-03-23 08:57:00 Test Item Value Reference Range Interpretation Comments Basophils (test code = 0.5 See_Comment [Aut omated message] The Basophils) system which ge nerated this result tra nsmitted reference range : <=1.0. The reference r hermes was not used to int erpret this result as normal/abnormal . [place] [address]-03-23 08:57:00 Test Item Value Reference Range Interpretation Comments Neutrophils # (test code = Neutrophils 2.8 1.5-8.1 #) [place] [address]-03-23 08:57:00 Test Item Value Reference Range Interpretation Comments Lymphocytes # (test code = Lymphocytes 0.8 1.0-5.5 #) [place] [address]-03-23 08:57:00 Test Item Value Reference Range Interpretation Comments Monocytes # (test code 0.6 See_Comment [Aut omated message] The = Monocytes #) system which generated this result tra nsmitted reference range : <=0.8. The reference r hermes was not used to int erpret this result as normal/abnormal . [place] [address]-03-23 08:57:00 Test Item Value Reference Range Interpretation Comments Eosinophils # (test code 0.2 See_Comment [A utomated message] The = Eosinophils #) system whic h generated this result tra nsmitted reference range : <=0.5. The reference r hermes was not used to int erpret this result as normal/abnormal . [place] 044740-03-23 08:57:00 Test Item Value Reference Range Interpretation Comments WBC (test code = WBC) 4.5 3.7-10.4 [place] [address]-03-23 08:57:00 Test Item Value Reference Range Interpretation Comments RBC (test code = RBC) 3.68 4.70-6.10 [place] [address]-03-23 08:57:00 Test Item Value Reference Range Interpretation Comments Hgb (test code = Hgb) 11.7 14.0-18.0 [place] [address]-03-23 08:57:00 Test Item Value Reference Range Interpretation Comments Hct (test code = Hct) 32.6 42.0-54.0 [place] [address]-03-23 08:57:00 Test Item Value Reference Range Interpretation Comments MCV (test code = MCV) 88.5 80.0-94.0 [place] [address]-03-23 08:57:00 Test Item Value Reference Range Interpretation Comments MCH (test code = MCH) 31.8 pg 27.0-31.0 [place] [address]-03-23 08:57:00 Test Item Value Reference Range Interpretation Comments MCHC (test code = MCHC) 35.9 32.0-36.0 [place] [address]-03-23 08:57:00 Test Item Value Reference Range Interpretation Comments RDW (test code = RDW) 13.9 11.5-14.5 [place] [address]-03-23 08:57:00 Test Item Value Reference Range Interpretation Comments Platelet (test code = Platelet) 137 133-450 [place] [address]-03-23 08:57:00 Test Item Value Reference Range Interpretation Comments MPV (test code = MPV) 9.3 7.4-10.4 [place] [address]-03-23 08:57:00 Test Item Value Reference Range Interpretation Comments Lipase Lvl (test code = Lipase Lvl) 722 73-393 [place] 735340-03-23 08:57:00 Test Item Value Reference Range Interpretation Comments Amylase Lvl (test code = Amylase Lvl) 96 25-115 [place] [address]-03-23 08:57:00 Test Item Value Reference Range Interpretation Comments Glucose Lvl (test code = Glucose Lvl) 115 70-99 [place] [address]-03-23 08:57:00 Test Item Value Reference Range Interpretation Comments BUN (test code = BUN) 3 7-22 [place] 735340-03-23 08:57:00 Test Item Value Reference Range Interpretation Comments Creatinine Lvl (test code = Creatinine 0.64 0.50-1.40 Lvl) [place] 735340-03-23 08:57:00 Test Item Value Reference Range Interpretation Comments Sodium Lvl (test code = Sodium Lvl) 138 135-145 [place] 735340-03-23 08:57:00 Test Item Value Reference Range Interpretation Comments Potassium Lvl (test code = Potassium 3.4 3.5-5.1 Lvl) [facility] [id number] 08:57:00 Test Item Value Reference Range Interpretation Comments Chloride Lvl (test code = Chloride Lvl) 104 95-109 [facility] [id number] 08:57:00 Test Item Value Reference Range Interpretation Comments CO2 (test code = CO2) 30 24-32 [facility] [id number] 08:57:00 Test Item Value Reference Range Interpretation Comments AGAP (test code = AGAP) 7.4 10.0-20.0 [facility] [id number] 08:57:00 Test Item Value Reference Range Interpretation Comments Calcium Lvl (test code = Calcium Lvl) 8.6 8.5-10.5 [facility] [id number] 08:57:00 Test Item Value Reference Range Interpretation Comments B/C Ratio (test code = B/C Ratio) 5 1 6-25 [facility] [id number] 08:57:00 Test Item Value Reference Range Interpretation Comments Total Protein (test code = Total 6.9 6.4-8.4 Protein) [facility] [id number] 08:57:00 Test Item Value Reference Range Interpretation Comments Albumin Lvl (test code = Albumin Lvl) 2.7 3.5-5.0 [facility] [id number] 08:57:00 Test Item Value Reference Range Interpretation Comments Globulin (test code = Globulin) 4.2 2.7-4.2 [facility] [id number] 08:57:00 Test Item Value Reference Range Interpretation Comments A/G Ratio (test code = A/G Ratio) 0.6 1 0.7-1.6 [facility] [id number] 08:57:00 Test Item Value Reference Range Interpretation Comments ALT (test code = ALT) 16 See_Comment [Auto mated message] The system which ge nerated this result transmit tae reference range : <=65. The reference range was not used to interpr et this result as uldmila l/abnormal. [facility] [employer] [id number] 08:57:00 Test Item Value Reference Range Interpretation Comments AST (test code = AST) 14 See_Comment [Auto mated message] The system which ge nerated this result transmit tae reference range : <=37. The reference range was not used to interpr et this result as ludmila l/abnormal. [facility] [id number] 08:57:00 Test Item Value Reference Range Interpretation Comments Alk Phos (test code = Alk Phos) 53 39-136 [facility] [id number] 08:57:00 Test Item Value Reference Range Interpretation Comments Bili Total (test code = Bili Total) 0.6 0.2-1.3 [facility] [id number] 08:57:00 Test Item Value Reference Range Interpretation Comments eGFR (test code = eGFR) 127 [place] [address]-03-23 08:57:00 Test Item Value Reference Range Interpretation Comments Segs (test code = Segs) 63.5 45.0-75.0 [place] [address]-03-23 08:57:00 Test Item Value Reference Range Interpretation Comments Lymphocytes (test code = Lymphocytes) 18.5 20.0-40.0 [place] [address]-03-23 08:57:00 Test Item Value Reference Range Interpretation Comments Monocytes (test code = Monocytes) 12.5 2.0-12.0 [facility] CenterOxyzwvePXUGXKOGTZ5131-69-14 08:57:00 Test Item Value Reference Range Interpretation Comments Eosinophils (test code = 5.0 See_Comment [A utomated message] The Eosinophils) system which ge nerated this result tra nsmitted reference range : <=4.0. The reference r hermes was not used to int erpret this result as normal/abnormal . [place] [address]-03-23 08:57:00 Test Item Value Reference Range Interpretation Comments Basophils (test code = 0.5 See_Comment [Aut omated message] The Basophils) system which ge nerated this result tra nsmitted reference range : <=1.0. The reference r hermes was not used to int erpret this result as normal/abnormal . [place] [address]-03-23 08:57:00 Test Item Value Reference Range Interpretation Comments Neutrophils # (test code = Neutrophils 2.8 1.5-8.1 #) [place] [address]-03-23 08:57:00 Test Item Value Reference Range Interpretation Comments Lymphocytes # (test code = Lymphocytes 0.8 1.0-5.5 #) [place] 044740-03-23 08:57:00 Test Item Value Reference Range Interpretation Comments Monocytes # (test code 0.6 See_Comment [Aut omated message] The = Monocytes #) system which generated this result tra nsmitted reference range : <=0.8. The reference r hermes was not used to int erpret this result as normal/abnormal . [place] 044740-03-23 08:57:00 Test Item Value Reference Range Interpretation Comments Eosinophils # (test code 0.2 See_Comment [A utomated message] The = Eosinophils #) system whic h generated this result tra nsmitted reference range : <=0.5. The reference r hermes was not used to int erpret this result as normal/abnormal . [place] 044740-03-23 08:57:00 Test Item Value Reference Range Interpretation Comments WBC (test code = WBC) 4.5 3.7-10.4 [place] [address]-03-23 08:57:00 Test Item Value Reference Range Interpretation Comments RBC (test code = RBC) 3.68 4.70-6.10 [place] [address]-03-23 08:57:00 Test Item Value Reference Range Interpretation Comments Hgb (test code = Hgb) 11.7 14.0-18.0 [place] [address]-03-23 08:57:00 Test Item Value Reference Range Interpretation Comments Hct (test code = Hct) 32.6 42.0-54.0 [place] [address]-03-23 08:57:00 Test Item Value Reference Range Interpretation Comments MCV (test code = MCV) 88.5 80.0-94.0 [place] [address]-03-23 08:57:00 Test Item Value Reference Range Interpretation Comments MCH (test code = MCH) 31.8 pg 27.0-31.0 [place] [address]-03-23 08:57:00 Test Item Value Reference Range Interpretation Comments MCHC (test code = MCHC) 35.9 32.0-36.0 [place] [address]-03-23 08:57:00 Test Item Value Reference Range Interpretation Comments RDW (test code = RDW) 13.9 11.5-14.5 [facility] C[id number] 08:57:00 Test Item Value Reference Range Interpretation Comments Platelet (test code = Platelet) 137 133-450 [facility] CenterDhfehlfOTFCTXOMTJ1691-91-97 08:57:00 Test Item Value Reference Range Interpretation Comments MPV (test code = MPV) 9.3 7.4-10.4 [facility] [id number] 10:16:00 Test Item Value Reference Range Interpretation Comments AST (test code = AST) 13 See_Comment [Auto mated message] The system which ge nerated this result transmit tae reference range : <=37. The reference range was not used to interpr et this result as ludmila l/abnormal. [facility] [employer] [id number] 10:16:00 Test Item Value Reference Range Interpretation Comments Alk Phos (test code = Alk Phos) 59 39-136 [facility] [id number] 10:16:00 Test Item Value Reference Range Interpretation Comments Bili Total (test code = Bili Total) 1.1 0.2-1.3 [facility] [id number] 10:16:00 Test Item Value Reference Range Interpretation Comments AGAP (test code = AGAP) 13.4 10.0-20.0 [facility] [id number] 10:16:00 Test Item Value Reference Range Interpretation Comments B/C Ratio (test code = B/C Ratio) 10 1 6-25 [facility] [id number] 10:16:00 Test Item Value Reference Range Interpretation Comments Globulin (test code = Globulin) 4.3 2.7-4.2 [facility] [id number] 10:16:00 Test Item Value Reference Range Interpretation Comments A/G Ratio (test code = A/G Ratio) 0.7 1 0.7-1.6 [facility] [id number] 10:16:00 Test Item Value Reference Range Interpretation Comments eGFR (test code = eGFR) 129 [facility] [id number] 10:16:00 Test Item Value Reference Range Interpretation Comments Lipase Lvl (test code = Lipase Lvl) 572 73-393 [place] 735340-03-22 10:16:00 Test Item Value Reference Range Interpretation Comments Magnesium Lvl (test code = Magnesium 1.8 1.8-2.4 Lvl) [facility]2020-03-22 10:16:00 Test Item Value Reference Range Interpretation Comments Amylase Lvl (test code = Amylase Lvl) 113 25-115 [place] 735340-03-22 10:16:00 Test Item Value Reference Range Interpretation Comments Phosphorus (test code = Phosphorus) 3.1 2.5-4.5 [place] [address]-03-22 10:16:00 Test Item Value Reference Range Interpretation Comments Segs (test code = Segs) 73.5 45.0-75.0 [place] [address]-03-22 10:16:00 Test Item Value Reference Range Interpretation Comments Lymphocytes (test code = Lymphocytes) 12.4 20.0-40.0 [place] 044740-03-22 10:16:00 Test Item Value Reference Range Interpretation Comments Monocytes (test code = Monocytes) 11.0 2.0-12.0 [facility] CenterAkbcvqtNKLJJWIPQT4298-56-23 10:16:00 Test Item Value Reference Range Interpretation Comments Eosinophils (test code = 2.6 See_Comment [A utomated message] The Eosinophils) system which ge nerated this result tra nsmitted reference range : <=4.0. The reference r hermes was not used to int erpret this result as normal/abnormal . [facility] CenterZtducfjLETFSTNOWX5845-09-68 10:16:00 Test Item Value Reference Range Interpretation Comments Basophils (test code = 0.5 See_Comment [Aut omated message] The Basophils) system which ge nerated this result tra nsmitted reference range : <=1.0. The reference r hermes was not used to int erpret this result as normal/abnormal . [facility] CenterWjalbwlZWUNJRXBIF5206-49-45 10:16:00 Test Item Value Reference Range Interpretation Comments Neutrophils # (test code = Neutrophils 5.0 1.5-8.1 #) [facility] CenterMzukdomVFOBWUIUTB6638-35-16 10:16:00 Test Item Value Reference Range Interpretation Comments Lymphocytes # (test code = Lymphocytes 0.8 1.0-5.5 #) [place] 044740-03-22 10:16:00 Test Item Value Reference Range Interpretation Comments Monocytes # (test code 0.7 See_Comment [Aut omated message] The = Monocytes #) system which generated this result tra nsmitted reference range : <=0.8. The reference r hermes was not used to int erpret this result as normal/abnormal . [facility] CenterIhpekcrOSLWJDNCLV6674-39-17 10:16:00 Test Item Value Reference Range Interpretation Comments Eosinophils # (test code 0.2 See_Comment [A utomated message] The = Eosinophils #) system whic h generated this result tra nsmitted reference range : <=0.5. The reference r hermes was not used to int erpret this result as normal/abnormal . [facility] CenterJnejiqqOFWLHHAPYM8652-91-05 10:16:00 Test Item Value Reference Range Interpretation Comments WBC (test code = WBC) 6.8 3.7-10.4 [facility] CenterIqgmxcyWTFAXCHUOA3512-84-85 10:16:00 Test Item Value Reference Range Interpretation Comments RBC (test code = RBC) 3.97 4.70-6.10 [facility] CenterZtvstyjUOHEJPXCXP7111-31-01 10:16:00 Test Item Value Reference Range Interpretation Comments Hgb (test code = Hgb) 12.5 14.0-18.0 [facility] CenterZxrntihKJJPIDDXUG0093-90-23 10:16:00 Test Item Value Reference Range Interpretation Comments Hct (test code = Hct) 35.8 42.0-54.0 [facility] CenterFhsrjvhQHKVBTBRKG0024-82-56 10:16:00 Test Item Value Reference Range Interpretation Comments MCV (test code = MCV) 90.2 80.0-94.0 [facility] CenterAhwokgjBSEPGEAJFB2585-95-61 10:16:00 Test Item Value Reference Range Interpretation Comments MCH (test code = MCH) 31.5 pg 27.0-31.0 [facility] CenterAovsjdtHNSAWUVKMN3085-86-29 10:16:00 Test Item Value Reference Range Interpretation Comments MCHC (test code = MCHC) 35.0 32.0-36.0 [facility] CenterPjxauiyFFNVCJRKFG1338-38-39 10:16:00 Test Item Value Reference Range Interpretation Comments RDW (test code = RDW) 13.8 11.5-14.5 [facility] CenterPwofrxwPMRAHQNPRT1164-43-20 10:16:00 Test Item Value Reference Range Interpretation Comments Platelet (test code = Platelet) 130 133-450 [facility] CenterXecdquxSDACDELTOS2562-35-28 10:16:00 Test Item Value Reference Range Interpretation Comments MPV (test code = MPV) 10.1 7.4-10.4 [facility] CenterOdzqqcxPZJONF3576-41-56 10:16:00 Test Item Value Reference Range Interpretation Comments Trig (test code = Trig) 74 [facility] CenterHtpxmraOZGPCZ2378-39-71 10:16:00 Test Item Value Reference Range Interpretation Comments Chol (test code = Chol) 114 [facility] CenterVyhkyehTYEEBM7930-71-62 10:16:00 Test Item Value Reference Range Interpretation Comments HDL (test code = HDL) 70 [facility] CenterAujwhjoENJJZF4839-79-93 10:16:00 Test Item Value Reference Range Interpretation Comments CHD Risk (test code = CHD Risk) 1.63 1 4.00-7.30 [facility] CenterKjxelawPDZYXC3480-05-70 10:16:00 Test Item Value Reference Range Interpretation Comments LDL (Calculated) (test code = LDL 29 (Calculated)) [facility] CenterXreovkcUAHORF0921-18-63 10:16:00 Test Item Value Reference Range Interpretation Comments VLDL (test code = VLDL) 15 1 [facility] [id number] 10:16:00 Test Item Value Reference Range Interpretation Comments Glucose Lvl (test code = Glucose Lvl) 73 70-99 [facility] [id number] 10:16:00 Test Item Value Reference Range Interpretation Comments BUN (test code = BUN) 6 7-22 [facility] [id number] 10:16:00 Test Item Value Reference Range Interpretation Comments Creatinine Lvl (test code = Creatinine 0.61 0.50-1.40 Lvl) [facility] [id number] 10:16:00 Test Item Value Reference Range Interpretation Comments Sodium Lvl (test code = Sodium Lvl) 134 135-145 [facility] [id number] 10:16:00 Test Item Value Reference Range Interpretation Comments Potassium Lvl (test code = Potassium 3.4 3.5-5.1 Lvl) [facility] [id number] 10:16:00 Test Item Value Reference Range Interpretation Comments Chloride Lvl (test code = Chloride Lvl) 101 95-109 [facility] [id number] 10:16:00 Test Item Value Reference Range Interpretation Comments CO2 (test code = CO2) 23 24-32 [facility] [id number] 10:16:00 Test Item Value Reference Range Interpretation Comments Calcium Lvl (test code = Calcium Lvl) 8.7 8.5-10.5 [facility] [id number] 10:16:00 Test Item Value Reference Range Interpretation Comments Total Protein (test code = Total 7.1 6.4-8.4 Protein) [facility] [id number] 10:16:00 Test Item Value Reference Range Interpretation Comments Albumin Lvl (test code = Albumin Lvl) 2.8 3.5-5.0 [facility] [employer] [id number] 10:16:00 Test Item Value Reference Range Interpretation Comments ALT (test code = ALT) 16 See_Comment [Auto mated message] The system which ge nerated this result transmit tae reference range : <=65. The reference range was not used to interpr et this result as ludmila l/abnormal. [facility] [employer] [id number] 10:16:00 Test Item Value Reference Range Interpretation Comments AST (test code = AST) 13 See_Comment [Auto mated message] The system which ge nerated this result transmit tae reference range : <=37. The reference range was not used to interpr et this result as ludmila l/abnormal. [facility] [employer] [id number] 10:16:00 Test Item Value Reference Range Interpretation Comments Alk Phos (test code = Alk Phos) 59 39-136 [facility] [employer] [id number] 10:16:00 Test Item Value Reference Range Interpretation Comments Bili Total (test code = Bili Total) 1.1 0.2-1.3 [facility] [employer] [id number] 10:16:00 Test Item Value Reference Range Interpretation Comments AGAP (test code = AGAP) 13.4 10.0-20.0 [facility] [employer] [id number] 10:16:00 Test Item Value Reference Range Interpretation Comments B/C Ratio (test code = B/C Ratio) 10 1 6-25 [facility] [employer] [id number] 10:16:00 Test Item Value Reference Range Interpretation Comments Globulin (test code = Globulin) 4.3 2.7-4.2 [place] 735340-03-22 10:16:00 Test Item Value Reference Range Interpretation Comments A/G Ratio (test code = A/G Ratio) 0.7 1 0.7-1.6 [place] 735340-03-22 10:16:00 Test Item Value Reference Range Interpretation Comments eGFR (test code = eGFR) 129 [place] 735340-03-22 10:16:00 Test Item Value Reference Range Interpretation Comments Lipase Lvl (test code = Lipase Lvl) 572 73-393 [place] 735340-03-22 10:16:00 Test Item Value Reference Range Interpretation Comments Magnesium Lvl (test code = Magnesium 1.8 1.8-2.4 Lvl) [place] 735340-03-22 10:16:00 Test Item Value Reference Range Interpretation Comments Amylase Lvl (test code = Amylase Lvl) 113 25-115 [place] 735340-03-22 10:16:00 Test Item Value Reference Range Interpretation Comments Phosphorus (test code = Phosphorus) 3.1 2.5-4.5 [place] [address]-03-22 10:16:00 Test Item Value Reference Range Interpretation Comments Segs (test code = Segs) 73.5 45.0-75.0 [place] 044740-03-22 10:16:00 Test Item Value Reference Range Interpretation Comments Lymphocytes (test code = Lymphocytes) 12.4 20.0-40.0 [place] 044740-03-22 10:16:00 Test Item Value Reference Range Interpretation Comments Monocytes (test code = Monocytes) 11.0 2.0-12.0 [place] [address]-03-22 10:16:00 Test Item Value Reference Range Interpretation Comments Eosinophils (test code = 2.6 See_Comment [A utomated message] The Eosinophils) system which ge nerated this result tra nsmitted reference range : <=4.0. The reference r hermes was not used to int erpret this result as normal/abnormal . [place] 044740-03-22 10:16:00 Test Item Value Reference Range Interpretation Comments Basophils (test code = 0.5 See_Comment [Aut omated message] The Basophils) system which ge nerated this result tra nsmitted reference range : <=1.0. The reference r hermes was not used to int erpret this result as normal/abnormal . [facility] CenterHzfhafjMJTOLXTEEZ3067-55-24 10:16:00 Test Item Value Reference Range Interpretation Comments Neutrophils # (test code = Neutrophils 5.0 1.5-8.1 #) [facility] CenterWrbxtcvXUGPCHZIPI4386-53-03 10:16:00 Test Item Value Reference Range Interpretation Comments Lymphocytes # (test code = Lymphocytes 0.8 1.0-5.5 #) [place] 044740-03-22 10:16:00 Test Item Value Reference Range Interpretation Comments Monocytes # (test code 0.7 See_Comment [Aut omated message] The = Monocytes #) system which generated this result tra nsmitted reference range : <=0.8. The reference r hermes was not used to int erpret this result as normal/abnormal . [facility] CenterXbqtkhdJTNHQFXXIU0608-31-31 10:16:00 Test Item Value Reference Range Interpretation Comments Eosinophils # (test code 0.2 See_Comment [A utomated message] The = Eosinophils #) system whic h generated this result tra nsmitted reference range : <=0.5. The reference r hermes was not used to int erpret this result as normal/abnormal . [facility] CenterBqjgcayJKTCEEFEST4710-16-79 10:16:00 Test Item Value Reference Range Interpretation Comments WBC (test code = WBC) 6.8 3.7-10.4 [place] 044740-03-22 10:16:00 Test Item Value Reference Range Interpretation Comments RBC (test code = RBC) 3.97 4.70-6.10 [place] [address]-03-22 10:16:00 Test Item Value Reference Range Interpretation Comments Hgb (test code = Hgb) 12.5 14.0-18.0 [place] [address]-03-22 10:16:00 Test Item Value Reference Range Interpretation Comments Hct (test code = Hct) 35.8 42.0-54.0 [place] 044740-03-22 10:16:00 Test Item Value Reference Range Interpretation Comments MCV (test code = MCV) 90.2 80.0-94.0 [place] [address]-03-22 10:16:00 Test Item Value Reference Range Interpretation Comments MCH (test code = MCH) 31.5 pg 27.0-31.0 [facility] CenterYcfyolgSGHNKOSJEZ1487-54-26 10:16:00 Test Item Value Reference Range Interpretation Comments MCHC (test code = MCHC) 35.0 32.0-36.0 [facility] CenterHvdnfhdHRWFPFIRWB7429-87-91 10:16:00 Test Item Value Reference Range Interpretation Comments RDW (test code = RDW) 13.8 11.5-14.5 [facility] CenterBagfpsrIKXMFZLPSM0289-45-44 10:16:00 Test Item Value Reference Range Interpretation Comments Platelet (test code = Platelet) 130 133-450 [facility] CenterGspejctEFXTVYPDMP1797-28-45 10:16:00 Test Item Value Reference Range Interpretation Comments MPV (test code = MPV) 10.1 7.4-10.4 [facility]ennialMsrvagvDIXFCF3695-60-86 10:16:00 Test Item Value Reference Range Interpretation Comments Trig (test code = Trig) 74 [facility] CentennialWkdnulyGYXRWG4738-51-15 10:16:00 Test Item Value Reference Range Interpretation Comments Chol (test code = Chol) 114 [facility] CentennialDcxibhvVEGQLY2260-38-52 10:16:00 Test Item Value Reference Range Interpretation Comments HDL (test code = HDL) 70 [facility] CentennialTmqvvzjSDHZCN4597-16-55 10:16:00 Test Item Value Reference Range Interpretation Comments CHD Risk (test code = CHD Risk) 1.63 1 4.00-7.30 [facility] CenterTxwzpilEFCFPM5063-49-74 10:16:00 Test Item Value Reference Range Interpretation Comments LDL (Calculated) (test code = LDL 29 (Calculated)) [facility] CenterTrgkagoBCXFSP4613-32-20 10:16:00 Test Item Value Reference Range Interpretation Comments VLDL (test code = VLDL) 15 1 [facility] [id number] 10:16:00 Test Item Value Reference Range Interpretation Comments Glucose Lvl (test code = Glucose Lvl) 73 70-99 [facility]2020-03-22 10:16:00 Test Item Value Reference Range Interpretation Comments BUN (test code = BUN) 6 7-22 [facility]2020-03-22 10:16:00 Test Item Value Reference Range Interpretation Comments Creatinine Lvl (test code = Creatinine 0.61 0.50-1.40 Lvl) [facility] [id number] 10:16:00 Test Item Value Reference Range Interpretation Comments Sodium Lvl (test code = Sodium Lvl) 134 135-145 [facility] [id number] 10:16:00 Test Item Value Reference Range Interpretation Comments Potassium Lvl (test code = Potassium 3.4 3.5-5.1 Lvl) [facility] [id number] 10:16:00 Test Item Value Reference Range Interpretation Comments Chloride Lvl (test code = Chloride Lvl) 101 95-109 [facility] [id number] 10:16:00 Test Item Value Reference Range Interpretation Comments CO2 (test code = CO2) 23 24-32 [facility] [id number] 10:16:00 Test Item Value Reference Range Interpretation Comments Calcium Lvl (test code = Calcium Lvl) 8.7 8.5-10.5 [facility] [id number] 10:16:00 Test Item Value Reference Range Interpretation Comments Total Protein (test code = Total 7.1 6.4-8.4 Protein) [facility] [id number] 10:16:00 Test Item Value Reference Range Interpretation Comments Albumin Lvl (test code = Albumin Lvl) 2.8 3.5-5.0 [facility] [id number] 10:16:00 Test Item Value Reference Range Interpretation Comments ALT (test code = ALT) 16 See_Comment [Auto mated message] The system which ge nerated this result transmit tae reference range : <=65. The reference range was not used to interpr et this result as ludmila l/abnormal. [facility] [id number] 10:16:00 Test Item Value Reference Range Interpretation Comments AST (test code = AST) 13 See_Comment [Auto mated message] The system which ge nerated this result transmit tae reference range : <=37. The reference range was not used to interpr et this result as ludmila l/abnormal. [facility] [id number] 10:16:00 Test Item Value Reference Range Interpretation Comments Alk Phos (test code = Alk Phos) 59 39-136 [facility] [id number] 10:16:00 Test Item Value Reference Range Interpretation Comments Bili Total (test code = Bili Total) 1.1 0.2-1.3 [facility]2020-03-22 10:16:00 Test Item Value Reference Range Interpretation Comments AGAP (test code = AGAP) 13.4 10.0-20.0 [facility]2020-03-22 10:16:00 Test Item Value Reference Range Interpretation Comments B/C Ratio (test code = B/C Ratio) 10 1 6-25 [facility]2020-03-22 10:16:00 Test Item Value Reference Range Interpretation Comments Globulin (test code = Globulin) 4.3 2.7-4.2 [facility]2020-03-22 10:16:00 Test Item Value Reference Range Interpretation Comments A/G Ratio (test code = A/G Ratio) 0.7 1 0.7-1.6 [facility]2020-03-22 10:16:00 Test Item Value Reference Range Interpretation Comments eGFR (test code = eGFR) 129 [facility]2020-03-22 10:16:00 Test Item Value Reference Range Interpretation Comments Lipase Lvl (test code = Lipase Lvl) 572 73-393 [facility]2020-03-22 10:16:00 Test Item Value Reference Range Interpretation Comments Magnesium Lvl (test code = Magnesium 1.8 1.8-2.4 Lvl) [facility]2020-03-22 10:16:00 Test Item Value Reference Range Interpretation Comments Amylase Lvl (test code = Amylase Lvl) 113 25-115 [facility]2020-03-22 10:16:00 Test Item Value Reference Range Interpretation Comments Phosphorus (test code = Phosphorus) 3.1 2.5-4.5 [facility]WdfocrgTCXVNXFZAG9693-96-99 10:16:00 Test Item Value Reference Range Interpretation Comments Segs (test code = Segs) 73.5 45.0-75.0 [facility] CenterUarnncvGNCDDNCFHL0149-13-94 10:16:00 Test Item Value Reference Range Interpretation Comments Lymphocytes (test code = Lymphocytes) 12.4 20.0-40.0 [facility] CenterTzfimpyRDGJCWODSQ7138-01-41 10:16:00 Test Item Value Reference Range Interpretation Comments Monocytes (test code = Monocytes) 11.0 2.0-12.0 [facility] CenterBshttrnCMKMGIPQFC9284-05-36 10:16:00 Test Item Value Reference Range Interpretation Comments Eosinophils (test code = 2.6 See_Comment [A utomated message] The Eosinophils) system which ge nerated this result tra nsmitted reference range : <=4.0. The reference r hermes was not used to int erpret this result as normal/abnormal . [facility] CenterVltwztdVGJNGBAGWA7326-79-83 10:16:00 Test Item Value Reference Range Interpretation Comments Basophils (test code = 0.5 See_Comment [Aut omated message] The Basophils) system which ge nerated this result tra nsmitted reference range : <=1.0. The reference r hermes was not used to int erpret this result as normal/abnormal . [facility] CenterKzmuzsaMEZWCPALHW3255-68-21 10:16:00 Test Item Value Reference Range Interpretation Comments Neutrophils # (test code = Neutrophils 5.0 1.5-8.1 #) [facility] CenterQjfschmPTIPVYBHLB5376-37-94 10:16:00 Test Item Value Reference Range Interpretation Comments Lymphocytes # (test code = Lymphocytes 0.8 1.0-5.5 #) [facility] CenterPsfgamuAKACUNOMKE2483-41-00 10:16:00 Test Item Value Reference Range Interpretation Comments Monocytes # (test code 0.7 See_Comment [Aut omated message] The = Monocytes #) system which generated this result tra nsmitted reference range : <=0.8. The reference r hermes was not used to int erpret this result as normal/abnormal . [facility] CenterArylijzLLDTYOIGJX8270-08-20 10:16:00 Test Item Value Reference Range Interpretation Comments Eosinophils # (test code 0.2 See_Comment [A utomated message] The = Eosinophils #) system whic h generated this result tra nsmitted reference range : <=0.5. The reference r hermes was not used to int erpret this result as normal/abnormal . [facility] CenterZcxctqcNZVLNBOVJT4060-90-13 10:16:00 Test Item Value Reference Range Interpretation Comments WBC (test code = WBC) 6.8 3.7-10.4 [facility] CenterTahmbtmVUZGHPBVIE9024-33-64 10:16:00 Test Item Value Reference Range Interpretation Comments RBC (test code = RBC) 3.97 4.70-6.10 [facility] CenterRbhjraaQQTLJRYVGX7374-52-32 10:16:00 Test Item Value Reference Range Interpretation Comments Hgb (test code = Hgb) 12.5 14.0-18.0 [facility] CenterAfrepfxYLWANJAMBH2853-23-08 10:16:00 Test Item Value Reference Range Interpretation Comments Hct (test code = Hct) 35.8 42.0-54.0 [facility] CenterJxdeqaiGHHYEUXBWX8012-98-36 10:16:00 Test Item Value Reference Range Interpretation Comments MCV (test code = MCV) 90.2 80.0-94.0 [facility] CenterUljfblrJMJPXDVVSP0137-79-37 10:16:00 Test Item Value Reference Range Interpretation Comments MCH (test code = MCH) 31.5 pg 27.0-31.0 [facility] CenterAveaeusVLEAJRMQYQ7123-75-06 10:16:00 Test Item Value Reference Range Interpretation Comments MCHC (test code = MCHC) 35.0 32.0-36.0 [facility] CenterKzwriirOGNUYILUMQ7839-10-42 10:16:00 Test Item Value Reference Range Interpretation Comments RDW (test code = RDW) 13.8 11.5-14.5 [facility] CenterEnxumzgDNYTHAXTZL8736-81-30 10:16:00 Test Item Value Reference Range Interpretation Comments Platelet (test code = Platelet) 130 133-450 [facility] CenterDpbnktiMPIIVAEABU7799-89-74 10:16:00 Test Item Value Reference Range Interpretation Comments MPV (test code = MPV) 10.1 7.4-10.4 [place] 186100-03-22 10:16:00 Test Item Value Reference Range Interpretation Comments Trig (test code = Trig) 74 [facility] CenterJanpdzsJTLPKK8290-05-98 10:16:00 Test Item Value Reference Range Interpretation Comments Chol (test code = Chol) 114 [facility] CenterBuxdjheCZDYPQ9220-45-42 10:16:00 Test Item Value Reference Range Interpretation Comments HDL (test code = HDL) 70 [facility] CenterEjgdczoVECKWG0971-07-14 10:16:00 Test Item Value Reference Range Interpretation Comments CHD Risk (test code = CHD Risk) 1.63 1 4.00-7.30 [facility] CenterQrsgxlaJIWNHV1886-20-23 10:16:00 Test Item Value Reference Range Interpretation Comments LDL (Calculated) (test code = LDL 29 (Calculated)) [facility] CenterNsgjyiuVDUGXQ8733-10-29 10:16:00 Test Item Value Reference Range Interpretation Comments VLDL (test code = VLDL) 15 1 [facility]2020-03-22 10:16:00 Test Item Value Reference Range Interpretation Comments Glucose Lvl (test code = Glucose Lvl) 73 70-99 [facility]2020-03-22 10:16:00 Test Item Value Reference Range Interpretation Comments BUN (test code = BUN) 6 7-22 [facility]2020-03-22 10:16:00 Test Item Value Reference Range Interpretation Comments Creatinine Lvl (test code = Creatinine 0.61 0.50-1.40 Lvl) [facility]2020-03-22 10:16:00 Test Item Value Reference Range Interpretation Comments Sodium Lvl (test code = Sodium Lvl) 134 135-145 [facility]2020-03-22 10:16:00 Test Item Value Reference Range Interpretation Comments Potassium Lvl (test code = Potassium 3.4 3.5-5.1 Lvl) [facility]2020-03-22 10:16:00 Test Item Value Reference Range Interpretation Comments Chloride Lvl (test code = Chloride Lvl) 101 95-109 [facility]2020-03-22 10:16:00 Test Item Value Reference Range Interpretation Comments CO2 (test code = CO2) 23 24-32 [facility]2020-03-22 10:16:00 Test Item Value Reference Range Interpretation Comments Calcium Lvl (test code = Calcium Lvl) 8.7 8.5-10.5 [facility]2020-03-22 10:16:00 Test Item Value Reference Range Interpretation Comments Total Protein (test code = Total 7.1 6.4-8.4 Protein) [facility]2020-03-22 10:16:00 Test Item Value Reference Range Interpretation Comments Albumin Lvl (test code = Albumin Lvl) 2.8 3.5-5.0 [facility]2020-03-22 10:16:00 Test Item Value Reference Range Interpretation Comments ALT (test code = ALT) 16 See_Comment [Auto mated message] The system which ge nerated this result transmit tae reference range : <=65. The reference range was not used to interpr et this result as ludmila l/abnormal. [facility] CenterWHOOP [id number] 10:16:00 Test Item Value Reference Range Interpretation Comments Glucose Lvl (test code = Glucose Lvl) 73 70-99 [facility]2020-03-22 10:16:00 Test Item Value Reference Range Interpretation Comments BUN (test code = BUN) 6 7-22 [place] 735340-03-22 10:16:00 Test Item Value Reference Range Interpretation Comments Creatinine Lvl (test code = Creatinine 0.61 0.50-1.40 Lvl) [facility]2020-03-22 10:16:00 Test Item Value Reference Range Interpretation Comments Sodium Lvl (test code = Sodium Lvl) 134 135-145 [facility] [id number] 10:16:00 Test Item Value Reference Range Interpretation Comments Potassium Lvl (test code = Potassium 3.4 3.5-5.1 Lvl) [facility] [id number] 10:16:00 Test Item Value Reference Range Interpretation Comments Chloride Lvl (test code = Chloride Lvl) 101 95-109 [facility] [id number] 10:16:00 Test Item Value Reference Range Interpretation Comments CO2 (test code = CO2) 23 24-32 [facility] [id number] 10:16:00 Test Item Value Reference Range Interpretation Comments Calcium Lvl (test code = Calcium Lvl) 8.7 8.5-10.5 [facility] [id number] 10:16:00 Test Item Value Reference Range Interpretation Comments Total Protein (test code = Total 7.1 6.4-8.4 Protein) [facility]WHO[facility] [id number] 10:16:00 Test Item Value Reference Range Interpretation Comments Albumin Lvl (test code = Albumin Lvl) 2.8 3.5-5.0 [facility] [id number] 10:16:00 Test Item Value Reference Range Interpretation Comments ALT (test code = ALT) 16 See_Comment [Auto mated message] The system which ge nerated this result transmit tae reference range : <=65. The reference range was not used to interpr et this result as ludmila l/abnormal. [facility] [id number] 10:16:00 Test Item Value Reference Range Interpretation Comments AST (test code = AST) 13 See_Comment [Auto mated message] The system which ge nerated this result transmit tae reference range : <=37. The reference range was not used to interpr et this result as ludmila l/abnormal. [facility] [employer] [id number] 10:16:00 Test Item Value Reference Range Interpretation Comments Alk Phos (test code = Alk Phos) 59 39-136 [facility] [employer] [id number] 10:16:00 Test Item Value Reference Range Interpretation Comments Bili Total (test code = Bili Total) 1.1 0.2-1.3 [facility] [employer] [id number] 10:16:00 Test Item Value Reference Range Interpretation Comments AGAP (test code = AGAP) 13.4 10.0-20.0 [facility] [employer] [id number] 10:16:00 Test Item Value Reference Range Interpretation Comments B/C Ratio (test code = B/C Ratio) 10 1 6-25 [facility] [employer] [id number] 10:16:00 Test Item Value Reference Range Interpretation Comments Globulin (test code = Globulin) 4.3 2.7-4.2 [facility] [employer] [id number] 10:16:00 Test Item Value Reference Range Interpretation Comments A/G Ratio (test code = A/G Ratio) 0.7 1 0.7-1.6 [facility] [employer] [id number] 10:16:00 Test Item Value Reference Range Interpretation Comments eGFR (test code = eGFR) 129 [facility] [employer] [id number] 10:16:00 Test Item Value Reference Range Interpretation Comments Lipase Lvl (test code = Lipase Lvl) 572 73-393 [facility] [employer] [id number] 10:16:00 Test Item Value Reference Range Interpretation Comments Magnesium Lvl (test code = Magnesium 1.8 1.8-2.4 Lvl) [facility] [id number] 10:16:00 Test Item Value Reference Range Interpretation Comments Amylase Lvl (test code = Amylase Lvl) 113 25-115 [facility] [employer] [id number] 10:16:00 Test Item Value Reference Range Interpretation Comments Phosphorus (test code = Phosphorus) 3.1 2.5-4.5 [place] [id number] 10:16:00 Test Item Value Reference Range Interpretation Comments Segs (test code = Segs) 73.5 45.0-75.0 [facility] CenterOnwgwxaIPCYYZHAHR9701-26-86 10:16:00 Test Item Value Reference Range Interpretation Comments Lymphocytes (test code = Lymphocytes) 12.4 20.0-40.0 [facility] CenterVyjixapOSCSYCQYSA7791-08-74 10:16:00 Test Item Value Reference Range Interpretation Comments Monocytes (test code = Monocytes) 11.0 2.0-12.0 [facility] CenterXfotuayUWXPGMBQHD2427-20-73 10:16:00 Test Item Value Reference Range Interpretation Comments Eosinophils (test code = 2.6 See_Comment [A utomated message] The Eosinophils) system which ge nerated this result tra nsmitted reference range : <=4.0. The reference r hermes was not used to int erpret this result as normal/abnormal . [facility] CenterVyzpdwfRBXCUHXNRQ2451-47-40 10:16:00 Test Item Value Reference Range Interpretation Comments Basophils (test code = 0.5 See_Comment [Aut omated message] The Basophils) system which ge nerated this result tra nsmitted reference range : <=1.0. The reference r hermes was not used to int erpret this result as normal/abnormal . [facility] CenterOprhzkvSDXGRZUWJR7834-23-08 10:16:00 Test Item Value Reference Range Interpretation Comments Neutrophils # (test code = Neutrophils 5.0 1.5-8.1 #) [facility] CenterCjievjxGRTQOJHUWU0833-51-31 10:16:00 Test Item Value Reference Range Interpretation Comments Lymphocytes # (test code = Lymphocytes 0.8 1.0-5.5 #) [place] [id number] 10:16:00 Test Item Value Reference Range Interpretation Comments Monocytes # (test code 0.7 See_Comment [Aut omated message] The = Monocytes #) system which generated this result tra nsmitted reference range : <=0.8. The reference r hermes was not used to int erpret this result as normal/abnormal . [facility] CenterEakhpxlFLBJBATOFO3981-08-62 10:16:00 Test Item Value Reference Range Interpretation Comments Eosinophils # (test code 0.2 See_Comment [A utomated message] The = Eosinophils #) system whic h generated this result tra nsmitted reference range : <=0.5. The reference r hermes was not used to int erpret this result as normal/abnormal . [facility] CenterGrfbhxpALBGFYMXPI7430-03-07 10:16:00 Test Item Value Reference Range Interpretation Comments WBC (test code = WBC) 6.8 3.7-10.4 [facility] CenterKhwraqtFHAUSGFSEZ1904-40-11 10:16:00 Test Item Value Reference Range Interpretation Comments RBC (test code = RBC) 3.97 4.70-6.10 [facility] CenterOpxtznsVCFKMZIXVP0267-65-70 10:16:00 Test Item Value Reference Range Interpretation Comments Hgb (test code = Hgb) 12.5 14.0-18.0 [facility] CenterZdmuezbFVWUCKMJRV6614-81-25 10:16:00 Test Item Value Reference Range Interpretation Comments Hct (test code = Hct) 35.8 42.0-54.0 [facility] CenterWkxrjikRWSQJTUIQX2862-72-08 10:16:00 Test Item Value Reference Range Interpretation Comments MCV (test code = MCV) 90.2 80.0-94.0 [facility] CenterDjazbedSJTFYEUSGO2095-92-45 10:16:00 Test Item Value Reference Range Interpretation Comments MCH (test code = MCH) 31.5 pg 27.0-31.0 [facility] CenterOmbmidcMAXUNBYUSW1144-03-31 10:16:00 Test Item Value Reference Range Interpretation Comments MCHC (test code = MCHC) 35.0 32.0-36.0 [facility] CenterZjjvrggQXZJDYCVCR4150-09-82 10:16:00 Test Item Value Reference Range Interpretation Comments RDW (test code = RDW) 13.8 11.5-14.5 [facility] CenterPqulnecPJZYPZQDVR0636-88-99 10:16:00 Test Item Value Reference Range Interpretation Comments Platelet (test code = Platelet) 130 133-450 [facility] CenterVpbsggqBFKTXGISOV7214-32-52 10:16:00 Test Item Value Reference Range Interpretation Comments MPV (test code = MPV) 10.1 7.4-10.4 [place] 186100-03-22 10:16:00 Test Item Value Reference Range Interpretation Comments Trig (test code = Trig) 74 [facility]NukjksnNLKERE3862-62-81 10:16:00 Test Item Value Reference Range Interpretation Comments Chol (test code = Chol) 114 [facility] CenterXbyymibSWOPTS2971-63-27 10:16:00 Test Item Value Reference Range Interpretation Comments HDL (test code = HDL) 70 [facility] CenterDgfrvluKCQSFD6601-40-66 10:16:00 Test Item Value Reference Range Interpretation Comments CHD Risk (test code = CHD Risk) 1.63 1 4.00-7.30 [facility] CenterJhkrdbkFQYPYY3443-31-42 10:16:00 Test Item Value Reference Range Interpretation Comments LDL (Calculated) (test code = LDL 29 (Calculated)) [facility] CenterDtjzbvsCGCSPY6578-63-78 10:16:00 Test Item Value Reference Range Interpretation Comments VLDL (test code = VLDL) 15 1 [facility] [id number] 12:20:00 Test Item Value Reference Range Interpretation Comments Amylase Lvl (test code = Amylase Lvl) 216 25-115 [facility] CenterNusbhxxBFLODYOXLJ3630-45-34 12:20:00 Test Item Value Reference Range Interpretation Comments CD3 T Cell % (test code = CD3 T Cell %) 63 55-84 [facility] CenterUjplsgzAWAEPOODUO4081-03-35 12:20:00 Test Item Value Reference Range Interpretation Comments CD3 T Cell # (test code = CD3 T Cell #) [phone] [facility] CenterLewbyatJKZIEQQFBG4500-91-00 12:20:00 Test Item Value Reference Range Interpretation Comments CD8 Suppress % (test code = CD8 38 13-41 Suppress %) [facility] CenterGmqcwoiRWUGLDMNXN6025-87-75 12:20:00 Test Item Value Reference Range Interpretation Comments CD8 Suppress # (test code = CD8 [phone] Suppress #) [facility] CenterCycnbjeQUCUFIXIFD5575-11-41 12:20:00 Test Item Value Reference Range Interpretation Comments CD4 [place] % (test code = CD4 [place] %) 24 31-61 [facility] CenterRzqaxzeGCTJXYTNLS7028-05-74 12:20:00 Test Item Value Reference Range Interpretation Comments CD4 T [place] # (test code = CD4 T [phone] [place] #) [facility] CenterGowgczoVAVGTFLXQU9911-78-98 12:20:00 Test Item Value Reference Range Interpretation Comments Tot Lymph # (test code = Tot Lymph #) 1203 [facility] CenterLtylsdpYCMAVOZUWA9050-03-80 12:20:00 Test Item Value Reference Range Interpretation Comments CD16 56 NK % (test code = CD16 56 NK %) 28 5-27 [facility] CenterCevhjzrMWEEWJSLNL4372-29-58 12:20:00 Test Item Value Reference Range Interpretation Comments CD 16 56 NK # (test code = CD 16 56 NK 341 90-590 #) [facility] CenterGwuqbszJVTSXRLFDX4356-88-14 12:20:00 Test Item Value Reference Range Interpretation Comments CD19 B Cell % (test code = CD19 B Cell 8 6-25 %) [place] [address]-03-21 12:20:00 Test Item Value Reference Range Interpretation Comments CD19 B Cell # (test code = CD19 B Cell 98 90-660 #) [facility] CenterDyfucrwKUWJCSYEAC5440-16-09 12:20:00 Test Item Value Reference Range Interpretation Comments H/S Ratio (test code = H/S Ratio) 0.63 1 0.90-2.30 [place] [address]-03-21 12:20:00 Test Item Value Reference Range Interpretation Comments CD4-CD8 Interp Abnormal study (test code = characterized by a CD4-CD8 Interp) relative and absolute decrease in CD4 positive T lymphocytes and a decreased helper:suppressor ratio. Testing and interpretation performed at [facility]. [facility] HospitalMpghkylBQMRXIWUSQ7172-24-83 12:20:00 Test Item Value Reference Range Interpretation Comments Vir Ld-HIV1 RNA (test Not Detected (04/27/19 code = Vir Ld-HIV1 7:20 AM) RNA) [place] [address]-03-21 12:20:00 Test Item Value Reference Range Interpretation Comments Log10 HIV1 (test code = Log10 HIV1) no gt [facility] [id number] 12:20:00 Test Item Value Reference Range Interpretation Comments Amylase Lvl (test code = Amylase Lvl) 216 25-115 [facility] CenterJewxkiaLLZMAOHXOX3516-73-01 12:20:00 Test Item Value Reference Range Interpretation Comments CD3 T Cell % (test code = CD3 T Cell %) 63 55-84 [facility] CenterHhcvkgzXLVVOUHPGN4591-16-23 12:20:00 Test Item Value Reference Range Interpretation Comments CD3 T Cell # (test code = CD3 T Cell #) [phone] [facility] CenterNddyzjuMCTVSAKBEU9240-41-14 12:20:00 Test Item Value Reference Range Interpretation Comments CD8 Suppress % (test code = CD8 38 13-41 Suppress %) [facility] CenterHzawqijXZOELPWSQD6626-27-05 12:20:00 Test Item Value Reference Range Interpretation Comments CD8 Suppress # (test code = CD8 [phone] Suppress #) [place] 573670-03-21 12:20:00 Test Item Value Reference Range Interpretation Comments CD4 [place] % (test code = CD4 [place] %) 24 31-61 [place] [address]-03-21 12:20:00 Test Item Value Reference Range Interpretation Comments CD4 T [place] # (test code = CD4 T [phone] [place] #) [place] 573670-03-21 12:20:00 Test Item Value Reference Range Interpretation Comments Tot Lymph # (test code = Tot Lymph #) 1203 [place] 573670-03-21 12:20:00 Test Item Value Reference Range Interpretation Comments CD16 56 NK % (test code = CD16 56 NK %) 28 - [place] [address]-03-21 12:20:00 Test Item Value Reference Range Interpretation Comments CD 16 56 NK # (test code = CD 16 56 NK 341 90-590 #) [place] 573670-03-21 12:20:00 Test Item Value Reference Range Interpretation Comments CD19 B Cell % (test code = CD19 B Cell 8 6-25 %) [place] 573670-03-21 12:20:00 Test Item Value Reference Range Interpretation Comments CD19 B Cell # (test code = CD19 B Cell 98 90-660 #) [place] 573670-03-21 12:20:00 Test Item Value Reference Range Interpretation Comments H/S Ratio (test code = H/S Ratio) 0.63 1 0.90-2.30 [place] 573670-03-21 12:20:00 Test Item Value Reference Range Interpretation Comments CD4-CD8 Interp Abnormal study (test code = characterized by a CD4-CD8 Interp) relative and absolute decrease in CD4 positive T lymphocytes and a decreased helper:suppressor ratio. Testing and interpretation performed at [facility]. [place] 573670-03-21 12:20:00 Test Item Value Reference Range Interpretation Comments Vir Ld-HIV1 RNA (test Not Detected (04/27/19 code = Vir Ld-HIV1 7:20 AM) RNA) [place] [address]-03-21 12:20:00 Test Item Value Reference Range Interpretation Comments Log10 HIV1 (test code = Log10 HIV1) no gt [facility]2020-03-21 12:20:00 Test Item Value Reference Range Interpretation Comments Amylase Lvl (test code = Amylase Lvl) 216 25-115 [facility] HospitalTjjlgawXODACSJUJR3467-72-29 12:20:00 Test Item Value Reference Range Interpretation Comments CD3 T Cell % (test code = CD3 T Cell %) 63 55-84 [facility] HospitalHhrknfrOOYYNIZZUA1549-28-24 12:20:00 Test Item Value Reference Range Interpretation Comments CD3 T Cell # (test code = CD3 T Cell #) [phone] [facility] HospitalNeclvuoVPNRNBJSQS9428-80-69 12:20:00 Test Item Value Reference Range Interpretation Comments CD8 Suppress % (test code = CD8 38 13-41 Suppress %) [facility] HospitalEktvjuaOXRZCCESLB6944-02-34 12:20:00 Test Item Value Reference Range Interpretation Comments CD8 Suppress # (test code = CD8 [phone] Suppress #) [facility] HospitalIdimlfsASRTYQSNRN6696-77-46 12:20:00 Test Item Value Reference Range Interpretation Comments CD4 [place] % (test code = CD4 [place] %) 24 31-61 [facility] HospitalUrfkvkzJOXPFPWWHF0688-01-17 12:20:00 Test Item Value Reference Range Interpretation Comments CD4 T [place] # (test code = CD4 T [phone] [place] #) [facility] HospitalOsmoqfvHUJVJBAYXV3658-29-36 12:20:00 Test Item Value Reference Range Interpretation Comments Tot Lymph # (test code = Tot Lymph #) 1203 [facility] HospitalVxvffnlQSDFAUKBPW3363-97-59 12:20:00 Test Item Value Reference Range Interpretation Comments CD16 56 NK % (test code = CD16 56 NK %) 28 5-27 [facility] HospitalQkzpydqRDXEVZEDVI6594-07-23 12:20:00 Test Item Value Reference Range Interpretation Comments CD 16 56 NK # (test code = CD 16 56 NK 341 90-590 #) [facility] HospitalJsijcleYYWGZFYMVE0724-55-14 12:20:00 Test Item Value Reference Range Interpretation Comments CD19 B Cell % (test code = CD19 B Cell 8 6-25 %) [place] 573670-03-21 12:20:00 Test Item Value Reference Range Interpretation Comments CD19 B Cell # (test code = CD19 B Cell 98 90-660 #) [facility] Ho[id number] 12:20:00 Test Item Value Reference Range Interpretation Comments H/S Ratio (test code = H/S Ratio) 0.63 1 0.90-2.30 [facility] Cent[id number] 12:20:00 Test Item Value Reference Range Interpretation Comments CD4-CD8 Interp Abnormal study (test code = characterized by a CD4-CD8 Interp) relative and absolute decrease in CD4 positive T lymphocytes and a decreased helper:suppressor ratio. Testing and interpretation performed at [facility]. [facility] CenterXrsbendVCMYIYDALP2673-04-55 12:20:00 Test Item Value Reference Range Interpretation Comments Vir Ld-HIV1 RNA (test Not Detected (04/27/19 code = Vir Ld-HIV1 7:20 AM) RNA) [facility] H[id number] 12:20:00 Test Item Value Reference Range Interpretation Comments Log10 HIV1 (test code = Log10 HIV1) no gt [facility]2020-03-21 12:20:00 Test Item Value Reference Range Interpretation Comments Amylase Lvl (test code = Amylase Lvl) 216 25-115 [facility] CenterFmdeizfTDISEGSRHM5032-97-89 12:20:00 Test Item Value Reference Range Interpretation Comments CD3 T Cell % (test code = CD3 T Cell %) 63 55-84 [facility] CenterObtauqjRDRWJWRFSD7194-74-67 12:20:00 Test Item Value Reference Range Interpretation Comments CD3 T Cell # (test code = CD3 T Cell #) [phone] [place] [id number] 12:20:00 Test Item Value Reference Range Interpretation Comments CD8 Suppress % (test code = CD8 38 13-41 Suppress %) [facility] HospitalVkclyaaVBPUBXZEQN8925-41-01 12:20:00 Test Item Value Reference Range Interpretation Comments CD8 Suppress # (test code = CD8 [phone] Suppress #) [facility] HospitalJqlaestBOCPWQVNHZ7100-08-40 12:20:00 Test Item Value Reference Range Interpretation Comments CD4 [place] % (test code = CD4 [place] %) 24 31-61 [facility] CenterGcxnvmbQRTICJLLUO1209-83-34 12:20:00 Test Item Value Reference Range Interpretation Comments CD4 T [place] # (test code = CD4 T [phone] [place] #) [place] [id number] 12:20:00 Test Item Value Reference Range Interpretation Comments Tot Lymph # (test code = Tot Lymph #) 1203 [facility] CenterMmnpxagHQSHEKEJZQ0467-27-13 12:20:00 Test Item Value Reference Range Interpretation Comments CD16 56 NK % (test code = CD16 56 NK %) 28 5-27 [facility] CenterXsxjgtmAGXODICDMD5446-43-14 12:20:00 Test Item Value Reference Range Interpretation Comments CD 16 56 NK # (test code = CD 16 56 NK 341 90-590 #) [facility] HospitalShekbveNVZNZMXHSD9152-17-04 12:20:00 Test Item Value Reference Range Interpretation Comments CD19 B Cell % (test code = CD19 B Cell 8 6-25 %) [facility] CenterHuctscrNHHCLZMJUQ0332-69-67 12:20:00 Test Item Value Reference Range Interpretation Comments CD19 B Cell # (test code = CD19 B Cell 98 90-660 #) [place] [id number] 12:20:00 Test Item Value Reference Range Interpretation Comments H/S Ratio (test code = H/S Ratio) 0.63 1 0.90-2.30 [place] [id number] 12:20:00 Test Item Value Reference Range Interpretation Comments CD4-CD8 Interp Abnormal study (test code = characterized by a CD4-CD8 Interp) relative and absolute decrease in CD4 positive T lymphocytes and a decreased helper:suppressor ratio. Testing and interpretation performed at [facility]. [facility] HospitalYloixfbAYYQQIICNG3682-53-48 12:20:00 Test Item Value Reference Range Interpretation Comments Vir Ld-HIV1 RNA (test Not Detected (04/27/19 code = Vir Ld-HIV1 7:20 AM) RNA) [place] [id number] 12:20:00 Test Item Value Reference Range Interpretation Comments Log10 HIV1 (test code = Log10 HIV1) no gt [facility] [id number] 21:45:00 Test Item Value Reference Range Interpretation Comments UA Turbidity (test code = Clear (04/26/19 4:45 UA Turbidity) PM) [facility] [id number] 21:45:00 Test Item Value Reference Range Interpretation Comments UA Spec Grav (test code = UA Spec 1.032 1 Grav) [facility] [id number] 21:45:00 Test Item Value Reference Range Interpretation Comments UA pH (test code = UA pH) 6.0 1 5.0-8.0 [facility] [id number] 21:45:00 Test Item Value Reference Range Interpretation Comments UA Protein (test code = UA Protein) 100 mg/dL [facility] AND [id number] 21:45:00 Test Item Value Reference Range Interpretation Comments UA Glucose (test code = UA Negative mg/dL Glucose) [facility] AND [id number] 21:45:00 Test Item Value Reference Range Interpretation Comments UA Ketones (test code = UA Ketones) 80 mg/dL [facility] AND [id number] 21:45:00 Test Item Value Reference Range Interpretation Comments UA Bili (test code = Negative *NA*(04/26/19 UA Bili) 4:45 PM) [facility] AND [id number] 21:45:00 Test Item Value Reference Range Interpretation Comments UA Blood (test code = Negative (04/26/19 4:45 UA Blood) PM) [facility] AND [id number] 21:45:00 Test Item Value Reference Range Interpretation Comments UA Urobilinogen (test code = UA 2.0 0.1-1.0 Urobilinogen) [facility] AND [id number] 21:45:00 Test Item Value Reference Range Interpretation Comments UA Nitrite (test code Negative (04/26/19 4:45 = UA Nitrite) PM) [facility] AND [id number] 21:45:00 Test Item Value Reference Range Interpretation Comments UA Leuk Est (test Negative (04/26/19 4:45 code = UA Leuk Est) PM) [facility] AND [id number] 21:45:00 Test Item Value Reference Range Interpretation Comments UA Sq Epi (test code = UA Sq Occasional /LPF Epi) [facility] AND [id number] 21:45:00 Test Item Value Reference Range Interpretation Comments UA WBC (test code = 3 See_Comment [Automa tae message] The UA WBC) system which ge nerated this result transmit tae reference range : <=5. The reference range was not used to interpr et this result as ludmila l/abnormal. [facility] AND [id number] 21:45:00 Test Item Value Reference Range Interpretation Comments UA RBC (test code = 3 See_Comment [Automa tae message] The UA RBC) system which ge nerated this result transmit tae reference range : <=2. The reference range was not used to interpr et this result as ludmila l/abnormal. [facility] AND [id number] 21:45:00 Test Item Value Reference Range Interpretation Comments UA Mucus (test code = UA Mucus) Few /LPF [facility] AND [id number] 21:45:00 Test Item Value Reference Range Interpretation Comments UA Color (test code = UA Color) Marline [facility] AND [id number] 21:45:00 Test Item Value Reference Range Interpretation Comments UA Turbidity (test code = Clear (04/26/19 4:45 UA Turbidity) PM) [facility] AND [id number] 21:45:00 Test Item Value Reference Range Interpretation Comments UA Spec Grav (test code = UA Spec 1.032 1 Grav) [facility] AND [id number] 21:45:00 Test Item Value Reference Range Interpretation Comments UA pH (test code = UA pH) 6.0 1 5.0-8.0 [facility] AND [id number] 21:45:00 Test Item Value Reference Range Interpretation Comments UA Protein (test code = UA Protein) 100 mg/dL [facility] AND [id number] 21:45:00 Test Item Value Reference Range Interpretation Comments UA Glucose (test code = UA Negative mg/dL Glucose) [facility] AND [id number] 21:45:00 Test Item Value Reference Range Interpretation Comments UA Ketones (test code = UA Ketones) 80 mg/dL [facility] AND [id number] 21:45:00 Test Item Value Reference Range Interpretation Comments UA Bili (test code = Negative *NA*(04/26/19 UA Bili) 4:45 PM) [facility] AND [id number] 21:45:00 Test Item Value Reference Range Interpretation Comments UA Blood (test code = Negative (04/26/19 4:45 UA Blood) PM) [facility] AND [id number] 21:45:00 Test Item Value Reference Range Interpretation Comments UA Urobilinogen (test code = UA 2.0 0.1-1.0 Urobilinogen) [facility] AND [id number] 21:45:00 Test Item Value Reference Range Interpretation Comments UA Nitrite (test code Negative (04/26/19 4:45 = UA Nitrite) PM) [facility] [id number] 21:45:00 Test Item Value Reference Range Interpretation Comments UA Leuk Est (test Negative (04/26/19 4:45 code = UA Leuk Est) PM) [facility] [id number] 21:45:00 Test Item Value Reference Range Interpretation Comments UA Sq Epi (test code = UA Sq Occasional /LPF Epi) [facility] [id number] 21:45:00 Test Item Value Reference Range Interpretation Comments UA WBC (test code = 3 See_Comment [Automa tae message] The UA WBC) system which ge nerated this result transmit tae reference range : <=5. The reference range was not used to interpr et this result as ludmila l/abnormal. [facility] [id number] 21:45:00 Test Item Value Reference Range Interpretation Comments UA RBC (test code = 3 See_Comment [Automa tae message] The UA RBC) system which ge nerated this result transmit tae reference range : <=2. The reference range was not used to interpr et this result as ludmila l/abnormal. [facility] [id number] 21:45:00 Test Item Value Reference Range Interpretation Comments UA Mucus (test code = UA Mucus) Few /LPF [facility] [id number] 21:45:00 Test Item Value Reference Range Interpretation Comments UA Color (test code = UA Color) [place]line [facility] [id number] 21:45:00 Test Item Value Reference Range Interpretation Comments UA Turbidity (test code = Clear (04/26/19 4:45 UA Turbidity) PM) [facility] [id number] 21:45:00 Test Item Value Reference Range Interpretation Comments UA Spec Grav (test code = UA Spec 1.032 1 Grav) [facility] [id number] 21:45:00 Test Item Value Reference Range Interpretation Comments UA pH (test code = UA pH) 6.0 1 5.0-8.0 [facility] [id number] 21:45:00 Test Item Value Reference Range Interpretation Comments UA Protein (test code = UA Protein) 100 mg/dL [facility] AND [id number] 21:45:00 Test Item Value Reference Range Interpretation Comments UA Glucose (test code = UA Negative mg/dL Glucose) [facility] AND [id number] 21:45:00 Test Item Value Reference Range Interpretation Comments UA Ketones (test code = UA Ketones) 80 mg/dL [facility] AND [id number] 21:45:00 Test Item Value Reference Range Interpretation Comments UA Bili (test code = Negative *NA*(04/26/19 UA Bili) 4:45 PM) [facility] AND [id number] 21:45:00 Test Item Value Reference Range Interpretation Comments UA Blood (test code = Negative (04/26/19 4:45 UA Blood) PM) [facility] AND [id number] 21:45:00 Test Item Value Reference Range Interpretation Comments UA Urobilinogen (test code = UA 2.0 0.1-1.0 Urobilinogen) [facility] AND [id number] 21:45:00 Test Item Value Reference Range Interpretation Comments UA Nitrite (test code Negative (04/26/19 4:45 = UA Nitrite) PM) [facility] AND [id number] 21:45:00 Test Item Value Reference Range Interpretation Comments UA Leuk Est (test Negative (04/26/19 4:45 code = UA Leuk Est) PM) [facility] AND [id number] 21:45:00 Test Item Value Reference Range Interpretation Comments UA Sq Epi (test code = UA Sq Occasional /LPF Epi) [facility] AND [id number] 21:45:00 Test Item Value Reference Range Interpretation Comments UA WBC (test code = 3 See_Comment [Automa tae message] The UA WBC) system which ge nerated this result transmit tae reference range : <=5. The reference range was not used to interpr et this result as ludmila l/abnormal. [facility] AND [id number] 21:45:00 Test Item Value Reference Range Interpretation Comments UA RBC (test code = 3 See_Comment [Automa tae message] The UA RBC) system which ge nerated this result transmit tae reference range : <=2. The reference range was not used to interpr et this result as ludmila l/abnormal. [facility] AND [id number] 21:45:00 Test Item Value Reference Range Interpretation Comments UA Mucus (test code = UA Mucus) Few /LPF [facility] AND [id number] 21:45:00 Test Item Value Reference Range Interpretation Comments UA Color (test code = UA Color) Marline [facility] AND [id number] 21:45:00 Test Item Value Reference Range Interpretation Comments UA Turbidity (test code = Clear (04/26/19 4:45 UA Turbidity) PM) [facility] AND [id number] 21:45:00 Test Item Value Reference Range Interpretation Comments UA Spec Grav (test code = UA Spec 1.032 1 Grav) [facility] AND [id number] 21:45:00 Test Item Value Reference Range Interpretation Comments UA pH (test code = UA pH) 6.0 1 5.0-8.0 [facility] AND [id number] 21:45:00 Test Item Value Reference Range Interpretation Comments UA Protein (test code = UA Protein) 100 mg/dL [facility] AND [id number] 21:45:00 Test Item Value Reference Range Interpretation Comments UA Glucose (test code = UA Negative mg/dL Glucose) [facility] AND [id number] 21:45:00 Test Item Value Reference Range Interpretation Comments UA Ketones (test code = UA Ketones) 80 mg/dL [facility] AND [id number] 21:45:00 Test Item Value Reference Range Interpretation Comments UA Bili (test code = Negative *NA*(04/26/19 UA Bili) 4:45 PM) [facility] AND [id number] 21:45:00 Test Item Value Reference Range Interpretation Comments UA Blood (test code = Negative (04/26/19 4:45 UA Blood) PM) [facility] AND [id number] 21:45:00 Test Item Value Reference Range Interpretation Comments UA Urobilinogen (test code = UA 2.0 0.1-1.0 Urobilinogen) [facility] AND [id number] 21:45:00 Test Item Value Reference Range Interpretation Comments UA Nitrite (test code Negative (04/26/19 4:45 = UA Nitrite) PM) [facility] AND [id number] 21:45:00 Test Item Value Reference Range Interpretation Comments UA Leuk Est (test Negative (04/26/19 4:45 code = UA Leuk Est) PM) [facility] AND [id number] 21:45:00 Test Item Value Reference Range Interpretation Comments UA Sq Epi (test code = UA Sq Occasional /LPF Epi) [facility] AND [id number] 21:45:00 Test Item Value Reference Range Interpretation Comments UA WBC (test code = 3 See_Comment [Automa tae message] The UA WBC) system which ge nerated this result transmit tae reference range : <=5. The reference range was not used to interpr et this result as ludmila l/abnormal. [facility] AND [id number] 21:45:00 Test Item Value Reference Range Interpretation Comments UA RBC (test code = 3 See_Comment [Automa tae message] The UA RBC) system which ge nerated this result transmit tae reference range : <=2. The reference range was not used to interpr et this result as ludmila l/abnormal. [facility] AND [id number] 21:45:00 Test Item Value Reference Range Interpretation Comments UA Mucus (test code = UA Mucus) Few /LPF [facility] AND [id number] 21:45:00 Test Item Value Reference Range Interpretation Comments UA Color (test code = UA Color) Marline [facility] W/AUTO [id number] 05:10:00 Test Item Value Reference Range Interpretation Comments WHITE BLOOD CELL (test 10.8 K/mm3 3.5-11.0 N code = WBC) RED BLOOD CELL (test 4.07 M/mm3 4.70-6.10 L code = RBC) HEMOGLOBIN (test code 13.3 G/DL 12.3-15.9 N = HGB) HEMATOCRIT (test code 36.4 % 35.8-46.7 N = HCT) MEAN CELL VOLUME (test 89.4 Fl 86.3-98.9 N code = MCV) MEAN CELL HGB (test 32.7 pg 28.9-34.4 N code = MCH) MEAN CELL HGB 36.5 G/DL 32.1-34.5 H CONCETRATION (test code = MCHC) RED CELL DISTRIBUTION 12.8 SD 11.5-14.5 N WIDTH (test code = RDW) PLATELET COUNT (test 165.0 K/mm3 150-450 N code = PLT) MEAN PLATELET VOLUME 11.70 fL 7.0-9.6 H (test code = MPV) NEUTROPHIL % (test 89.2 % 40-76 H code = NT%) LYMPHOCYTE % (test 5.0 % 20.5-51.1 L code = LY%) MONOCYTE % (test code 5.5 % 1.7-9.3 N = MO%) EOSINOPHIL % (test 0.2 % 0.0-6.0 N code = EO%) BASOPHIL % (test code 0.1 % 0.0-2.0 N = BA%) NEUTROPHIL # (test 9.60 K/mm3 1.8-7.6 H code = NT#) LYMPHOCYTE # (test 0.5 K/mm3 0.6-3.0 L code = LY#) MONOCYTE # (test code 0.6 K/mm3 0.2-1.5 N = MO#) EOSINOPHIL # (test 0.0 K/mm3 0.0-0.4 N code = EO#) BASOPHIL # (test code 0.0 K/mm3 0.0-0.2 N = BA#) MANUAL DIFF REQUIRED NO DIFF/SCN CRITERIA SLIDE R EVIEW (test code = MDIFF) CONSISTA NT WITH AUTO DIFFERENTIAL. PROTHROMBIN [id number] 04:25:00 Test Item Value Reference Range Interpretation Comments PT PATIENT (test code = PTP) 12.4 SECONDS 9.3-12.9 N INTERNATIONAL NORMAL RATIO 1.10 INR Unit 0.8-1.2 N (test code = INR) COMPREHENSIVE METABOLIC [id number] 04:25:00 Test Item Value Reference Range Interpretation Comments SODIUM (test code = NA) 136 mmol/L 134-147 N POTASSIUM (test code = 3.5 mmol/L 3.4-5.0 N K) CHLORIDE (test code = 103 mmol/L 100-108 N CL) CARBON DIOXIDE (test 26 mmol/L 21-32 N code = CO2) ANION GAP (test code = 7.0 GAP calc 4.0-15.0 N GAP) GLUCOSE (test code = 105 MG/DL 70-110 N GLU) BLOOD UREA NITROGEN 5 MG/DL 7-18 L (test code = BUN) GLOMERULAR FILTRATION >=60 max estimate >60 RATE (test code = GFR) estGFR CREATININE (test code = 0.6 MG/DL 0.8-1.3 L CREAT) TOTAL PROTEIN (test code 7.6 G/DL 6.4-8.2 N = PROT) ALBUMIN (test code = 3.6 G/DL 3.4-5.0 N ALB) GLOBULIN (test code = 4.0 GM/dL GLOB) ALBUMIN/GLOBULIN RATIO 0.9 RATIO 1.2-2.2 L (test code = A/G) CALCIUM (test code = CA) 8.4 MG/DL 8.5-10.1 L BILIRUBIN TOTAL (test 1.20 MG/DL 0.2-1.2 N code = BILT) SGOT/AST (test code = 13 Unit/L 15-37 L AST) SGPT/ALT (test code = 20 Unit/L 12-78 N ALT) ALKALINE PHOSPHATASE 57 Unit/L 50-136 N TOTAL (test code = ALKP) LIPID PROFILE (CORONARY RISK)2019-02-19 04:25:00 Test Item Value Reference Range Interpretation Comments TRIGLYCERIDES (test code = TRIG) 63 MG/DL 0-150 N CHOLESTEROL (test code = CHOL) 109 MG/DL 133-200 L CHOLESTEROL/HDL RATIO (test code = 1.63 RATIO >0 CHOLHDL) HDL CHOLESTEROL (test code = HDL) 67 MG/DL 40-59 H NON-HDL CHOLESTEROL (test code = 42 mg/dL <130 NHDL) LIPOPROTEIN LDL (test code = LDL) 30 MG/DL 0-129 N LDL/HDL (test code = LDL/HDL) 0.44 Ratio 1.48-3.22 Avg L [id number] 04:25:00 Test Item Value Reference Range Interpretation Comments LIPASE (test code = LIP) 3097 Unit/L 114-286 H CBC W/AUTO [id number] 04:24:00 Test Item Value Reference Range Interpretation Comments WHITE BLOOD CELL (test code = 10.8 K/mm3 3.5-11.0 N WBC) RED BLOOD CELL (test code = RBC) 4.07 M/mm3 4.70-6.10 L HEMOGLOBIN (test code = HGB) 13.3 G/DL 12.3-15.9 N HEMATOCRIT (test code = HCT) 36.4 % 35.8-46.7 N MEAN CELL VOLUME (test code = 89.4 Fl 86.3-98.9 N MCV) MEAN CELL HGB (test code = MCH) 32.7 pg 28.9-34.4 N MEAN CELL HGB CONCETRATION (test 36.5 G/DL 32.1-34.5 H code = MCHC) RED CELL DISTRIBUTION WIDTH (test 12.8 SD 11.5-14.5 N code = RDW) PLATELET COUNT (test code = PLT) 165.0 K/mm3 150-450 N MEAN PLATELET VOLUME (test code = 11.70 fL 7.0-9.6 H MPV) NEUTROPHIL % (test code = NT%) % 40-76 H LYMPHOCYTE % (test code = LY%) % 20.5-51.1 L MONOCYTE % (test code = MO%) % 1.7-9.3 N EOSINOPHIL % (test code = EO%) % 0.0-6.0 N BASOPHIL % (test code = BA%) % 0.0-2.0 N NEUTROPHIL # (test code = NT#) K/mm3 1.8-7.6 H LYMPHOCYTE # (test code = LY#) K/mm3 0.6-3.0 L MONOCYTE # (test code = MO#) K/mm3 0.2-1.5 N EOSINOPHIL # (test code = EO#) K/mm3 0.0-0.4 N BASOPHIL # (test code = BA#) K/mm3 0.0-0.2 N MANUAL DIFF REQUIRED (test code = DIFF/SCN CRITERIA MDIFF) [id number] 21:22:00 Test Item Value Reference Range Interpretation Comments TROPONIN-I (test < 0.015 NG/ML 0.000-0.045 N Negative: </= 0.045 code = TROPI) Positive: >/= 0.046 Correlation wit h serial results, other cardiac markers, and cl inical findings is nec essary to determine the c linical significance of this result. Quantit ative results using d ifferent methodologies s hould not be compared to one another as nume rical results may garret yby method. Completed by Nursing: [id number] 17:28:00 Test Item Value Reference Range Interpretation Comments TROPONIN-I (test < 0.015 NG/ML 0.000-0.045 N Negative: </= 0.045 code = TROPI) Positive: >/= 0.046 Correlation wit h serial results, other cardiac markers, and cl inical findings is nec essary to determine the c linical significance of this result. Quantit ative results using d ifferent methodologies s hould not be compared to one another as nume rical results may garret yby method. Completed by Nursing: NO- CT ABD PELVIS W/[id number] 15:32:00 Name: QUETA DOYLE [facility] : 1985 Age/S: 34 / M [address] Unit #: [id number] Loc: [place] [address] Phys: Jasmina Judd MD Acct: [id number] Dis Date: Status: REG ERPHONE #: [phone] Exam Date: 02/18/2019 6090 FAX #: Reason: abdominal pain, back pain, r/o pancreatitis EXAMS: CPT: [id number] CT ABD PELVIS W/CONT 24832 EXAMINATION: - CT ABD PELVIS W/CONT. LOCATION: S17. HISTORY: Abdominal pain, back pain, vomiting, r/o pancreatitis. COMPARISON: CT abdomen 11/25/2017. TECHNIQUE: CT imaging was performed of abdomen and pelvis after intravenous administration of 100 cc of Isovue-300. Oral contrast material was not administered. One or more the following dose reduction techniques were used: Automated exposure control, adjustment of mA and/or kV according to patient size, and use of iterative reconstruction technique. FINDINGS: Examination is limited due to lack of oral contrast. Visualized lung bases appear unremarkable. Bulky pancreas with peripancreatic inflammatory changes. Splenic vein is patent. Liver, gallbladder, spleen, adrenals and kidneys appear unremarkable. No hydronephrosis. Underdistended urinary bladder. The bowel loops appear normal in courseand caliber. No bowel obstruction. Unremarkable appendix. No abdominal or pelvic bulky lymphadenopathy is identified. No pneumoperitoneum. Small abdominal free fluid. Visualized osseous structures appear unremarkable. IMPRESSION: Bulky pancreas with peripancreatic inflammatory changes indicative of pancreatitis. at 1532 Reported and signed by: Desire Smith M.D. PAGE 1 Signed Report (CONTINUED) Name: [place] : 1985 Age/S: 34 / M [address] Unit #: [id number] Loc: [place] [address] Phys: Jasmina Judd MD Acct: [id number] Dis Date: Status: REG ER PHONE #: [phone] Exam Date: 02/18/2019 1515 FAX #: Reason: abdominal pain, back pain, r/o pancreatitis EXAMS: CPT: [id number] CT ABD PELVIS W/CONT 01069 <Continued> CC: Jasmina Judd MD; Dunia Valles PA; Vaughn Bryant NP Technologist:RT Juliane(R)(CT) CTDI: DLP: Trnscb Date/Time: 02/18/2019 (153) [email or web address] Orig Print D/T: S: 02/18/2019 (1535) PAGE 2 Signed Report- US ABDOMEN [id number] 14:38:00 Name: QUETA DOYLE [place] : 1985 Age/S: 34 / M [address] Unit #: [id number] Loc: [place] [address] Phys: Ray Guerrero MD Acct: [id number] Dis Date: Status: REG ER PHONE #: [phone] Exam Date: 02/18/2019 1410 FAX #: Reason: elevatd bilirubin EXAMS: CPT: [id number] US ABDOMEN LTD 35838 LOCATION: T18 EXAM: - US ABDOMEN LTD INDICATION: Elevated bilirubin COMPARISON: CTabdomen and pelvis November 25, 2017 TECHNIQUE: Real-time grayscale sonographic images of the abdomenare submitted for interpretation. FINDINGS: IVC is patent. Abdominal aorta measures 1.7 cm diameter.These of the pancreas are within normal limits. Liver is normal in echogenicity measuring 12.7 cm insize. No focal abnormality seen. Main portal vein is patent with hepatopedal flow. Gallbladder is adequately distended. No filling defect or stone is present. Gallbladder wall measures 1.5 mm in thickne ss. No pericholecystic fluid is present. No sonographic Anderson's sign was elicited. Common bile duct measures 4.9 mm diameter. Right kidney is normal in echogenicity measuring 9.1 x 4.7 x 3.8 cm. Renal cortex measures 1.7 cm in thickness. No focal abnormality or hydronephrosis is seen. IMPRESSION: No cholelithiasis or evidence of acute cholecystitis. at 1438 Reported and signed by: Liban Palmer M.D. CC: Jasmina Judd MD; Ray Guerrero MD; Dunia PELAYO; Vaughn Bryant NP Technologist: Leydi Rainey, RT(R),RDMS(AB) Trnscb Date/Time: 02/18/2019 (0681) [email or web address] PAGE 1 Signed Report Name: QUETA DOYLE [facility] : 1985 Age/S: 34 / M [address] Unit #: [id number] Loc: [place] [address] Phys: Ray Guerrero MD Acct: [id number] Dis Date: Status: REG ER PHONE #: [phone] Exam Date: 02/18/2019 1410 FAX #: Reason: elevatd bilirubin EXAMS: CPT: [id number] US ABDOMEN LTD 16852 <Continued> Orig Print D/T: S: 02/18/2019 (1441) Probe: PAGE 2 Signed ReportBASIC METABOLIC [id number] 13:11:00 Test Item Value Reference Range Interpretation Comments SODIUM (test code = NA) 140 mmol/L 134-147 N POTASSIUM (test code = 3.5 mmol/L 3.4-5.0 N K) CHLORIDE (test code = 107 mmol/L 100-108 N CL) CARBON DIOXIDE (test 28 mmol/L 21-32 N code = CO2) ANION GAP (test code = 5.0 GAP calc 4.0-15.0 N GAP) GLUCOSE (test code = 103 MG/DL 70-110 N GLU) BLOOD UREA NITROGEN 8 MG/DL 7-18 N (test code = BUN) GLOMERULAR FILTRATION >=60 max estimate >60 RATE (test code = GFR) estGFR CREATININE (test code = 0.8 MG/DL 0.8-1.3 N CREAT) CALCIUM (test code = CA) 8.6 MG/DL 8.5-10.1 N Completed by Nursing: NOHEPATIC FUNCTION [id number] 13:11:00 Test Item Value Reference Range Interpretation Comments TOTAL PROTEIN (test code = PROT) 7.4 G/DL 6.4-8.2 N ALBUMIN (test code = ALB) 3.8 G/DL 3.4-5.0 N BILIRUBIN TOTAL (test code = BILT) 1.30 MG/DL 0.2-1.2 H BILIRUBIN DIRECT (test code = 0.40 MG/DL 0.00-0.30 H BILD) BILIRUBIN INDIRECT (test code = 0.90 MG/DL 0.2-1.2 N BILIND) SGOT/AST (test code = AST) 23 Unit/L 15-37 N SGPT/ALT (test code = ALT) 21 Unit/L 12-78 N ALKALINE PHOSPHATASE TOTAL (test 55 Unit/L 50-136 N code = ALKP) Completed by Nursing: [id number] 13:11:00 Test Item Value Reference Range Interpretation Comments LIPASE (test code = LIP) 1963 Unit/L 114-286 H Completed by Nursing: [id number] 13:11:00 Test Item Value Reference Range Interpretation Comments TROPONIN-I (test < 0.015 NG/ML 0.000-0.045 N Negative: </= 0.045 code = TROPI) Positive: >/= 0.046 Correlation wit h serial results, other cardiac markers, and cl inical findings is nec essary to determine the c linical significance of this result. Quantit ative results using d ifferent methodologies s hould not be compared to one another as nume rical results may garret yby method. Completed by Nursing: LORRIEUA RFLX MICR CULT IF [id number] 13:11:00 Test Item Value Reference Range Interpretation Comments UA COLOR (test code = YELLOW discript YEL/STRAW COLU) UA APPEARANCE (test code CLEAR discript CLEAR = APPU) UA GLUCOSE DIPSTICK (test NEGATIVE mg/dL NEG code = DGLUU) UA BILIRUBIN DIPSTICK NEGATIVE mg/dL NEG (test code = BILU) UA KETONE DIPSTICK (test NEGATIVE mg/dL NEG code = KETU) UA SPECIFIC GRAVITY (test 1.025 SG 1.005-1.030 code = SGU) UA BLOOD DIPSTICK (test NEGATIVE mg/DL NEG code = WILFRED) UA PH DIPSTICK (test code 7.0 pH UNITS 5.0-7.0 = LIMA) UA PROTEIN DIPSTICK (test TRACE mg/dL NEG A code = PROU) UA UROBILINIOGEN DIPSTICK 0.2 mg/dL <2.0 (test code = URO) UA NITRITE DIPSTICK (test NEGATIVE SCREEN NEG code = JF) UA LEUKOCYTE ESTERASE NEGATIVE Leuk/mcL NEGATIVE DIPSTICK (test code = LEUU) UA WBC (test code = WBCU) 0-1 #WBC/HPF 0-3 UA RBC (test code = RBCU) 1-3 #RBC/HPF 0-3 UA BACTERIA (test code = NONE SEEN /HPF NONE-TRACE BACU) UA SQUAMOUS CELLS (test TRACE /HPF NONE code = SQU) UA MUCUS (test code = 1+ /LPF NONE SEEN MUCU) UA CULTURE NEEDED? (test NO, WBC<10 Criteria Culture CHK code = UACULT) SOURCE OF URINE: CLEAN CATCHIndication for culture: Dysuria/FrequencyDRUGS OF ABUSE SCREEN [id number] 13:11:00 Test Item Value Reference Range Interpretation Comments URN COCAINE (test code = NEGATIVE SCcutoff <300 NG/ML COCAURN) URN CANNABINOIDS (test code NEGATIVE SCcutoff <50 NG/ML = CANNABURN) URN AMPHETAMINE (test code NEGATIVE SCcutoff <1000 NG/ML = AMPHETURN) URN BARBITURATE (test code NEGATIVE SCcutoff <200 NG/ML = BARBITURN) URN BENZODIAZEPINE (test NEGATIVE SCcutoff <200 NG/ML code = BENZOURN) URN OPIATES (test code = NEGATIVE SCcutoff <2000 NG/ML OPIATURN) URN PHENCYCLIDINE (PCP) NEGATIVE SCcutoff <25 NG/ML (test code = PHENCURN) URN METHADONE (test code = NEGATIVE SCcutoff <300 NG/ML METHAURN) SOURCE OF URINE: CLEAN CATCHIndication for culture: Dysuria/FrequencyUA RFLX MICR CULT IF [id number] 12:52:00 Test Item Value Reference Range Interpretation Comments UA COLOR (test code = YELLOW discript YEL/STRAW COLU) UA APPEARANCE (test code CLEAR discript CLEAR = APPU) UA GLUCOSE DIPSTICK (test NEGATIVE mg/dL NEG code = DGLUU) UA BILIRUBIN DIPSTICK NEGATIVE mg/dL NEG (test code = BILU) UA KETONE DIPSTICK (test NEGATIVE mg/dL NEG code = KETU) UA SPECIFIC GRAVITY (test 1.025 SG 1.005-1.030 code = SGU) UA BLOOD DIPSTICK (test NEGATIVE mg/DL NEG code = WILFRED) UA PH DIPSTICK (test code 7.0 pH UNITS 5.0-7.0 = LIMA) UA PROTEIN DIPSTICK (test TRACE mg/dL NEG A code = PROU) UA UROBILINIOGEN DIPSTICK 0.2 mg/dL <2.0 (test code = URO) UA NITRITE DIPSTICK (test NEGATIVE SCREEN NEG code = JF) UA LEUKOCYTE ESTERASE NEGATIVE Leuk/mcL NEGATIVE DIPSTICK (test code = LEUU) UA WBC (test code = WBCU) 0-1 #WBC/HPF 0-3 UA RBC (test code = RBCU) 1-3 #RBC/HPF 0-3 UA BACTERIA (test code = NONE SEEN /HPF NONE-TRACE BACU) UA SQUAMOUS CELLS (test TRACE /HPF NONE code = SQU) UA MUCUS (test code = 1+ /LPF NONE SEEN MUCU) UA CULTURE NEEDED? (test NO, WBC<10 Criteria Culture CHK code = UACULT) SOURCE OF URINE: CLEAN CATCHIndication for culture: Dysuria/FrequencyDRUGS OF ABUSE SCREEN [id number] 12:52:00 Test Item Value Reference Range Interpretation Comments URN COCAINE (test code = COCAURN) SCcutoff <300 NG/ML URN CANNABINOIDS (test code = SCcutoff <50 NG/ML CANNABURN) URN AMPHETAMINE (test code = SCcutoff <1000 NG/ML AMPHETURN) URN BARBITURATE (test code = SCcutoff <200 NG/ML BARBITURN) URN BENZODIAZEPINE (test code = SCcutoff <200 NG/ML BENZOURN) URN OPIATES (test code = OPIATURN) SCcutoff <2000 NG/ML URN PHENCYCLIDINE (PCP) (test code SCcutoff <25 NG/ML = PHENCURN) URN METHADONE (test code = SCcutoff <300 NG/ML METHAURN) SOURCE OF URINE: CLEAN CATCHIndication for culture: Dysuria/FrequencyCBC W/AUTO [id number] 12:47:00 Test Item Value Reference Range Interpretation Comments WHITE BLOOD CELL (test code = 6.9 K/mm3 3.5-11.0 N WBC) RED BLOOD CELL (test code = RBC) 3.92 M/mm3 4.70-6.10 L HEMOGLOBIN (test code = HGB) 12.7 G/DL 12.3-15.9 N HEMATOCRIT (test code = HCT) 35.1 % 35.8-46.7 L MEAN CELL VOLUME (test code = 89.5 Fl 86.3-98.9 N MCV) MEAN CELL HGB (test code = MCH) 32.4 pg 28.9-34.4 N MEAN CELL HGB CONCETRATION (test 36.2 G/DL 32.1-34.5 H code = MCHC) RED CELL DISTRIBUTION WIDTH (test 12.8 SD 11.5-14.5 N code = RDW) PLATELET COUNT (test code = PLT) 169.0 K/mm3 150-450 N MEAN PLATELET VOLUME (test code = 10.80 fL 7.0-9.6 H MPV) NEUTROPHIL % (test code = NT%) 75.1 % 40-76 N LYMPHOCYTE % (test code = LY%) 11.4 % 20.5-51.1 L MONOCYTE % (test code = MO%) 7.9 % 1.7-9.3 N EOSINOPHIL % (test code = EO%) 5.3 % 0.0-6.0 N BASOPHIL % (test code = BA%) 0.3 % 0.0-2.0 N NEUTROPHIL # (test code = NT#) 5.21 K/mm3 1.8-7.6 N LYMPHOCYTE # (test code = LY#) 0.8 K/mm3 0.6-3.0 N MONOCYTE # (test code = MO#) 0.6 K/mm3 0.2-1.5 N EOSINOPHIL # (test code = EO#) 0.4 K/mm3 0.0-0.4 N BASOPHIL # (test code = BA#) 0.0 K/mm3 0.0-0.2 N MANUAL DIFF REQUIRED (test code = NO DIFF/SCN CRITERIA MDIFF) UA RFLX MICR CULT IF [id number] 12:45:00 Test Item Value Reference Range Interpretation Comments UA COLOR (test code = COLU) YELLOW discript YEL/STRAW UA APPEARANCE (test code = CLEAR discript CLEAR APPU) UA GLUCOSE DIPSTICK (test NEGATIVE mg/dL NEG code = DGLUU) UA BILIRUBIN DIPSTICK (test NEGATIVE mg/dL NEG code = BILU) UA KETONE DIPSTICK (test NEGATIVE mg/dL NEG code = KETU) UA SPECIFIC GRAVITY (test 1.025 SG 1.005-1.030 code = SGU) UA BLOOD DIPSTICK (test NEGATIVE mg/DL NEG code = WILFRED) UA PH DIPSTICK (test code = 7.0 pH UNITS 5.0-7.0 LIMA) UA PROTEIN DIPSTICK (test TRACE mg/dL NEG A code = PROU) UA UROBILINIOGEN DIPSTICK 0.2 mg/dL <2.0 (test code = URO) UA NITRITE DIPSTICK (test NEGATIVE SCREEN NEG code = JF) UA LEUKOCYTE ESTERASE NEGATIVE Leuk/mcL NEGATIVE DIPSTICK (test code = LEUU) UA CULTURE NEEDED? (test Criteria Culture CHK code = UACULT) SOURCE OF URINE: CLEAN CATCHIndication for culture: Dysuria/FrequencyDRUGS OF ABUSE SCREEN [id number] 12:45:00 Test Item Value Reference Range Interpretation Comments URN COCAINE (test code = COCAURN) SCcutoff <300 NG/ML URN CANNABINOIDS (test code = SCcutoff <50 NG/ML CANNABURN) URN AMPHETAMINE (test code = SCcutoff <1000 NG/ML AMPHETURN) URN BARBITURATE (test code = SCcutoff <200 NG/ML BARBITURN) URN BENZODIAZEPINE (test code = SCcutoff <200 NG/ML BENZOURN) URN OPIATES (test code = OPIATURN) SCcutoff <2000 NG/ML URN PHENCYCLIDINE (PCP) (test code SCcutoff <25 NG/ML = PHENCURN) URN METHADONE (test code = SCcutoff <300 NG/ML METHAURN) SOURCE OF URINE: CLEAN CATCHIndication for culture: Dysuria/Frequency- XR CHEST 1 [id number] 12:44:00 Name: QUETA DOYLE [place] : 1985 Age/S: 34 / M [address] Unit #: [id number] Loc: [place] [address] Phys: Jasmina Judd MD Acct: [id number] Dis Date: Status: REG ER PHONE #: [phone] Exam Date: 02/18/2019 1242 FAX #: Reason: Abdominal Pain EXAMS: CPT: [id number] XR CHEST 1 V 75445 Fluoro Time: DAP (Gy m2): Air Kerma (mGy): LOCATION: T18 EXAM: CHEST 1 VIEW INDICATION: , Abdominal Pain COMPARISON: Chest x-ray April 13, 2016 TECHNIQUE: AP chest radiograph. FINDINGS: Lungs are clear bilaterally without effusion. Heart is normal in size. Bones and peripheral soft tissues are unremarkable. IMPRESSION: Lungs are clear. No acute abnormality. Electronically Signedby Ariadne Palmer on 02/18/2019 at 1244 Reported and signed by: Liban Palmer M.D. CC: Verito Judd MD; Dunia PELAYO; Vaughn Bryant ACCOUNTS PAYABLE ACCOUNTANT PAGE 1 Signed Report Name: QUETA DOYLE [place] : 1985 Age/S: 34 / M [address] [place] [address] Unit #: [id number] Loc: [place] [address] Phys: Jasmina Judd MD Acct: [id number] Dis Date: Status: REG ER PHONE #: [phone] Exam Date: 02/18/2019 1242 FAX #: Reason: Abdominal Pain EXAMS: CPT: [id number] XR CHEST 1 V 47850 Fluoro Time: DAP (Gy m2): Air Kerma (mGy): <Continued> Technologist: Vish Harrison, RT(R)(CT) Trnscb Date/Time: 02/18/2019 (1061) [email or web address] Orig Print D/T: S: 02/18/2019 (6723) PAGE 2 Signed Report Notes Date/Time Note Provider Source 2022-02-18 12:57[facility]00:00 [facility] Discharge Summary REPORT#:[id number] REPORT STATUS: Signed DATE:02/18/22 TIME:1257 PATIENT: QUETA DOYLE UNIT #: [id number] ROOM[address]BED: [address] : [birth year] AGE: 37 SEX: M ATTEND: Bonny Porter MD ADM AUTHOR: Anabela Ochoa * ALL edits or amendments must be made on the [employer]/computer document * General Information Date of admission: Observation Start Date: 02/17/22 Date of admission: 02/17/22 Discharge date: 02/18/22 Discharge diagnosis: Viral gastroenteritis Intractable nausea and vomiting Metabolic acidosis Acute kidney injury Dehydration Transaminitis Hyperglycemia Hx of HIV, noncompliant with HAART Hospital course: 37 y/o male with PMHx of HIV, noncompliant with HAART was admitted to the hospital for intractable jair sea and vomiting 2/2 suspected viral gastroenteritis with LINDA and metabolic acidosis. Please refer to H P for further admission details. Labs were significant for LINDA with crea tinine 1.4 and metabolic acidosis with anion gap of 22. CT abdomen/pelvis showed no acute findings. Pt was treated with IVF hydration and suppo rtive care with antiemetics as needed. Repeat BMP this morning showed resolved LINDA and metabolic acidosis. Creatinine now 0.9 and anion gap is 12. Leukocytosis resolv ed, likely reactive. Pt has remained afebrile and vital signs are stable. Pt was not treated with abx as low suspicion of acute bacterial process. Pt symptom s have improved and he is tolerating PO. Will DC home with close P follow up to repeat labs in 1 week. Med Rec Med Rec Discharge meds: Stop taking the following medications: CIPROFLOXACIN (CIPRO) 250 MG TAB 750 MILLIGRAM ORAL EVERY 12 HOURS. Qty = 14 metroNIDAZOLE (FLAGYL) 250 MG TAB 500 MILLIGRAM ORAL EVERY 8 HOURS. Qty = 21 ACYCLOVIR (ZOVIRAX) 800 MG TAB 800 MILLIGRAM ORAL 5 TIMES A DAY. Qty = 35 Continue taking these medications: [SYMTUZA] traMADol (ULTRAM) 50 MG TAB 50 MILLIGRAM ORAL EVERY 6 HOURS NEEDED. as n eeded for ACUTE PAIN Qty = 16 Start taking the following new medications: ONDANSETRON (ZOFRAN) 4 MG TAB 4 MILLIGRAM ORAL EVERY 6 HOURS NEEDED. as ne eded for NAUSEA/VOMITING Qty = 15 No Refills Objective VS/I O Last Documented: Result Date Time Pulse Ox 98 02/18 110 B/P 132/88 02/18 1106 B/P Mean 103.1 02/18 110 O2 Delivery Room air 02/18 1105 Temp 98.4 02/18 110 Pulse 76 02/18 1106 Resp 14 02/18 110 24 hour I O ending at 0700: 02/18 0700 02/17 1900 Intake Total Output Total Balance Patient 65.909 kg Weight Weight Stated/Reported Measurement Method General appearance: alert, awake, no acute distr ess Head/Eyes: atraumatic, normocephalic ENT: moist mucosal membranes, normal dentition Cardiovascular: normal heart sounds, regular rat e rhythm Respiratory: symmetric expansion, no distress Abdomen: non-tender, soft Extremities: moves all, no edema Neuro/COLLAR SETTER OVERLOCK: alert, normal speech Skin: dry, intact Results Findings/Data: Laboratory Tests: 02/18 02/18 02/18 02/18 1105 0828 0720 0344 Chemistry POC Glucose (70 - 110 mg/dL) 90 81 Hemoglobin A1c (0.0 - 5.7 % A1C) 5.2 Estim Average Glucose (MG/DLest) 103 Urines Urine Color (YEL/STRAW discript) YELLOW Urine Appearance (CLEAR discript) CLEAR Urine pH (5.0 - 7.0 pH UNITS) 5.5 Ur Specific [place] (1.005 - 1.030 SG) 1.025 Urine Protein (NEG mg/dL) TRACE H Urine Glucose (UA) (NEG mg/dL) NEGATIVE Urine Ketones (NEG mg/dL) 2+ H Urine Blood (NEG mg/DL) NEGATIVE Urine Nitrite (NEG SCREEN) NEGATIVE Urine Bilirubin (NEG mg/dL) 1+ H Urine Urobilinogen (<2.0 mg/dL) 0.2 Ur Leukocyte Esterase (NEGATIVE Leuk/mcL) NEGAT EITAN Urine Culture Screen (Culture CHK Criteria) NO, WBC<10 02/18 0344 Chemistry Sodium (134 - 147 mmol/L) 141 Potassium (3.4 - 5.0 mmol/L) 4.1 Chloride (100 - 108 mmol/L) 104 Carbon Dioxide (21 - 32 mmol/L) 25 Anion Gap (4.0 - 15.0 GAP calc) 12.0 BUN (7 - 18 MG/DL) 15 Creatinine (0.8 - 1.3 MG/DL) 0.9 Glomerular Filtr Rate (>60 estGFR) >=60 max est imate Glucose (70 - 110 MG/DL) 97 Calcium (8.5 - 10.1 MG/DL) 8.2 L Total Bilirubin (0.2 - 1.2 MG/DL) 1.20 AST (15 - 37 Unit/L) 128 H ALT (12 - 78 Unit/L) 119 H Total Alk Phosphatase (50 - 136 Unit/L) 84 Total Protein (6.4 - 8.2 G/DL) 8.1 Albumin (3.4 - 5.0 G/DL) 3.5 Globulin (GM/dL) 4.6 Albumin/Globulin Ratio (1.2 - 2.2 RATIO) 0.8 L Hematology WBC (3.5 - 11.0 K/mm3) 7.4 RBC (4.70 - 6.10 M/mm3) 4.14 L Hgb (12.3 - 15.9 G/DL) 12.6 Hct (35.8 - 46.7 %) 34.2 L MCV (86.3 - 98.9 Fl) 82.6 L MCH (28.9 - 34.4 pg) 30.4 MCHC (32.1 - 34.5 G/DL) 36.8 H RDW (11.5 - 14.5 SD) 13.1 Plt Count (150 - 450 K/mm3) 218 MPV (7.0 - 9.6 fL) 11.70 H Neut % (Auto) (40 - 76 %) 73.2 Lymph % (Auto) (20.5 - 51.1 %) 17.6 L [place] % (Auto) (1.7 - 9.3 %) 8.8 Eos % (Auto) (0.0 - 6.0 %) 0.0 Baso % (Auto) (0.0 - 2.0 %) 0.3 Neut # (Auto) (1.8 - 7.6 K/mm3) 5.4 Lymph # (Auto) (0.6 - 3.0 K/mm3) 1.3 [place] # (Auto) (0.2 - 1.5 K/mm3) 0.7 Eos # (Auto) (0.0 - 0.4 K/mm3) 0.0 Baso # (Auto) (0.0 - 0.2 K/mm3) 0.0 Abs Immat Gran (auto) (0.00 - 0.03 x10 3/uL) 0. 01 Add Manual Diff (CRITERIA DIFF/SCN) NO Immature Gran % (0.0 - 5.0 %) 0.1 Nucleated RBC % (0.0 - 1.0 /100WBC%) 0.0 02/17 1851 Chemistry Sodium (134 - 147 mmol/L) 140 Potassium (3.4 - 5.0 mmol/L) 4.3 Chloride (100 - 108 mmol/L) 97 L Carbon Dioxide (21 - 32 mmol/L) 21 Anion Gap (4.0 - 15.0 GAP calc) 22.0 H BUN (7 - 18 MG/DL) 20 H Creatinine (0.8 - 1.3 MG/DL) 1.4 H Glomerular Filtr Rate (>60 estGFR) >=60 max es timate Glucose (70 - 110 MG/DL) 220 H Calcium (8.5 - 10.1 MG/DL) 9.7 Total Bilirubin (0.2 - 1.2 MG/DL) 1.10 Direct Bilirubin (0.00 - 0.30 MG/DL) 0.30 Indirect Bilirubin (0.2 - 1.2 MG/DL) 0.80 AST (15 - 37 Unit/L) 209 H ALT (12 - 78 Unit/L) 170 H Total Alk Phosphatase (50 - 136 Unit/L) 118 Total Protein (6.4 - 8.2 G/DL) 10.6 H Albumin (3.4 - 5.0 G/DL) 4.7 Lipase (114 - 286 Unit/L) 39 L Hematology WBC (3.5 - 11.0 K/mm3) 13.0 H RBC (4.70 - 6.10 M/mm3) 5.20 Hgb (12.3 - 15.9 G/DL) 15.8 Hct (35.8 - 46.7 %) 43.8 MCV (86.3 - 98.9 Fl) 84.2 L MCH (28.9 - 34.4 pg) 30.4 MCHC (32.1 - 34.5 G/DL) 36.1 H RDW (11.5 - 14.5 SD) 13.3 Plt Count (150 - 450 K/mm3) 329 MPV (7.0 - 9.6 fL) 11.30 H Neut % (Auto) (40 - 76 %) 90.5 H Lymph % (Auto) (20.5 - 51.1 %) 6.5 L [place] % (Auto) (1.7 - 9.3 %) 2.5 Eos % (Auto) (0.0 - 6.0 %) 0.0 Baso % (Auto) (0.0 - 2.0 %) 0.3 Neut # (Auto) (1.8 - 7.6 K/mm3) 11.7 H Lymph # (Auto) (0.6 - 3.0 K/mm3) 0.9 [place] # (Auto) (0.2 - 1.5 K/mm3) 0.3 Eos # (Auto) (0.0 - 0.4 K/mm3) 0.0 Baso # (Auto) (0.0 - 0.2 K/mm3) 0.0 Abs Immat Gran (auto) (0.00 - 0.03 x10 3/uL) 0. 03 Add Manual Diff (CRITERIA DIFF/SCN) NO Immature Gran % (0.0 - 5.0 %) 0.2 Nucleated RBC % (0.0 - 1.0 /100WBC%) 0.0 Radiology data: Recent Impressions: CAT SCAN - CT ABD PELVIS W/CONT 02/17 1907 Report Impression - Status: SIGNED Entered: 02/17/20222000 IMPRESSION: No definite acute bowel pathology. Visualization of a normal-appearing appendix. No extraluminal collection identifiabl e Cholecystectomy changes Impression By: [email or web address] - Chanda linn M.D. RADIOLOGY - XR CHEST 1 V 02/18 1916 Report Impression - Status: SIGNED Entered: 02/17/2022 193 IMPRESSION: No radiographic evidence of acute cardiopulmonar y process. Impression By: [email or web address] - Lacy Ledezma Discharge Instructions PCP PCP follow-up: PCP: No Primary or Family Physician Discharge to: Home/Self Care Additional Discharge Routines: PCP Follow-Up Diet: Regular Activity: As Tolerated Discharge management: face to face encounter, jeff [place] time 40 minutes Follow-up Appointments PCP follow-up: PCP: Caroline Avila DO PCP follow up timeframe: In 5 days Special instructions: Repeat CBC, BMP in 1 week at 1307 Electronically Signed by Sindhu Alan MD on 0 02/18/22 at 1819 RPT #: [id number] END OF REPORT 2022-02-18 03:19:00-00:00 [facility] ([facility]) Hospitalist History Physical REPORT#:[id number] REPORT STATUS: Signed DATE:02/18/22 TIME:318 PATIENT: QUETA DOYLE UNIT #: [id number] ROOM/BED: [place] [address] : [birth year] AGE: 37 SEX: M ATTEND: Bonny Porter MD ADM AUTHOR: Cynthia Renteria P * ALL edits or amendments must be made on the el [employer]/computer document * Cynthia Renteria 02/18/22 0319: History of Present Illness HPI Chief complaint: Abdominal pain, nausea, vomiting HPI: This is a 37 years old male with a medical histo ry of HIV, noncompliant to medical therapy presented to the emergency [facility] with complaint of generalized weakness, abdominal pain, nausea, vo miting onset for 1 day. According to patient, he sta rted to vomit in the middle of the night without no aggravating factor and continued all thr oughout the day, later associated with abdominal pain and loose stool. Patient report 1 0-12 episodes of nonbloody vomiting and about 5 nonbloo dy diarrhea episodes. He reported that his symptoms are aggravated by p.o. intake. He denies fever, chills, chest pain, shortness of breath. Complete work-up done in the ED, patient is admitted for further evaluation due to his clinical presentation. We are con sulted for medical management, patient was seen and evaluated in the ER, he was awake a lert and oriented x4, in condition stable. Informant/historian: patient History Additional medical history: HIV Additional surgical history: Daniella Additional family history: [place] Alcohol use: Alcohol use Drug use: Denies recreational drugs Smoking status for patients 13 years old or olde r: Never Smoker Other social history: Local resident, Good socia l support Medication/Allergy-Vaccine Hx Allergies: Coded Allergies: No Known Allergies (05/26/10) Review of Systems Constitutional: Reports: fatigue, generalized weakness, lethargy . GI: Reports: abdominal pain, anorexia, diarrhea, jair sea, vomiting. All systems rev neg: except as marked Objective General VS/I O: Vital Signs: Date Time Temp Pulse Resp B/P B/P Pulse O2 O2 F low FiO2 Mean Ox Delivery Rate 02/17 2344 97.9 82 12 162/97 118.7 90 Room air 02/17 2310 84 17 127/83 97 97 Room air 02/17 2001 79 17 135/75 95 98 Room air 02/17 1838 97.9 115 18 152/81 104 99 Room air 24 hour I O ending at 0700: 02/18 0700 02/17 1900 Intake Total Output Total Balance Patient 65.909 kg Weight Weight Stated/Reported Measurement Method PATIENT WEIGHT: Weight (lb): Weight (oz): Weight (kg): 65.909 Medications: Active Meds + DC'd Last 24 Hrs Amlodipine Besylate (NORVASC) 5 MG DAILY PO Famotidine (PEPCID) 20 MG BID AC PO Insulin Human Lispro (HUMALOG) S/SCALE MED AC HS SUBQ Enoxaparin Sodium (lovENOX) 40 MG Q24H SUBQ Morphine Sulfate (morphine Sulfate) 2 MG Q4H PRN PRN IV Dextrose/Water (Dextrose 50% W SYRINGE) 50 ML DIR PRN IV (CKD) Hydralazine HCl (APRESOLINE) 10 MG Q6H PRN PRN I V Acetaminophen (TYLENOL) 650 MG Q4H PRN PRN PO Hydrocodone Bitart/Acetaminophen (NORCO 5/325) 1 TAB Q6H PRN PRN PO Ondansetron HCl (ZOFRAN) 4 MG Q4H PRN PRN IV Sodium Chloride (0.9% Sodium Chloride) 1,000 ML .Q10H IV Sodium Chloride (0.9% Sodium Chloride) 1,000 ML ONCE ONE IV (DC) Sodium Chloride (0.9% Sodium Chloride) [address] ML .ST K-MED ONE IV (DC) Iopamidol (ISOVUE-300) 0 .STK-MED ONE .ROUTE (DC ) Ondansetron HCl (ZOFRAN) 4 MG ONCE ONE IV (DC) Morphine Sulfate (morphine SULFATE) [address] A IV (DC) Sodium Chloride (0.9% Sodium Chloride) 1,000 ML X1ED STA IV (DC) Physical Exam General appearance: alert, awake, oriented, no a cute distress Head/Eyes: atraumatic, clear cornea, normal conj unctiva/sclera ENT: dry mucosal membrane, n ormal dentition, normal ear left, normal ear right, normal nose Neck: full range of motion, non-tender, normal t hyroid, supple/no meningismus Cardiovascular: normal capillary refill, normal heart sounds, regular rate rhythm Respiratory: aerating well, clear to auscultatio n, symmetric expansion, no distress Abdomen: tenderness, difused abdominal tendernes s Extremities: moves all, norm al capillary refill, normal range of motion, no calf tenderness, no edema Musculoskeletal: normal insp ection, painless range of motion, straight leg raise neg, no CVA tenderness, no midline vertebral ten d, no muscle spasm Neuro/[employer]: alert, oriented X 3, CNII-XII intact, normal speech, reflexes equal bilat Psychiatry: normal affect, normal judgment/insig ht, normal mood, not suicidal Scores Searcy Searcy Coma Score: Copyright Sir Yoshi Webb Copyright Sir Abner Webb Eye opening: (4) Spontaneous Verbal response: (5) Oriented Best motor response: (6) Obeys commands GCS Score: 15 Diagnosis, Assessment Plan Free Text DxA P Notes Free Text DxA P Notes: Problem List/A P: 1. High anion gap metabolic acidosis -Admitted on telemetry -Anion gap is 22, blood glucose 200s, BUN 22, cr eatinine 1.4 -We will continue to trend lab -Fluid resuscitation 2. Abdominal pain -CT abdomen and pelvis was completed, sh owed no definite acute bowel pathology -Likely due to to DKA symptoms -Pain management with analgesic 3. Intractable nausea and vomiting -Symptom management with antiemetic -Likely due to use tools DKA's symptoms -We will continue medical monitor for further ev aluation 4. HIV (human immunodeficiency virus infection) -Patient stated been positiv e for about 10 years not currently on medication due to financial status -We will order CD4 count -We will refer to infectious disease for outpati ent management 5. LINDA (acute kidney injury) -Continue to monitor labs, BMP -Fluid resuscitation 6. Hyperglycemia -Hemoglobin A1c -Patient is not known to be diabetic -Accu-Cheks every 6 hours with medium dose cover age -Fluid reperfusion 7. Hypertension -Vital signs as per unit protocol -Patient is not known to be hypertensive -As needed hydralazine if uncontrolled BP -Will consider start patient in hypertension man agement regimen 8. DVT/GI ppx -Lovenox/Pepcid 60 minutes time spent towards this encounter rev iewing patient chart, labs, developing a plan of treatment, and discussion o f the plan of treatment with patient and staff directly involve in his care. at 0325 Electronically Signed by Kaitlin Porter MD on at 0924 RPT #: [id number] END OF REPORT 2022-02-17 21:55:00-00:00 [facility] ([facility]) Hospitalist History Physical REPORT#:[id number] REPORT STATUS: Signed DATE:02/17/22 TIME:2154 PATIENT: QUETA DOYLE UNIT #: [id number] ROOM/BED: [place] [address] : 84 AGE: 37 SEX: M ATTEND: Bonny Porter MD ADM AUTHOR: Cynthia Renteria * ALL edits or amendments must be made on the el ectronic/computer document * Cynthia Renteria 02/17/222154: History of Present Illness HPI Chief complaint: Abdominal pain, nausea, vomiting PCP: PCP: No Primary or Family Physician HPI: This is a 37 years old male with a medical histo ry of HIV, noncompliant to medical therapy presented to the emergency [facility] with complaint of generalized weakness, abdominal pain, nausea, vo miting onset for 1 day. According to patient, he sta rted to vomit in the middle of the night without no aggravating factor and continued all thr oughout the day, later associated with abdominal pain and loose stool. Patient report 1 0-12 episodes of nonbloody vomiting and about 5 nonbloo dy diarrhea episodes. He reported that his symptoms are aggravated by p.o. intake. He denies fever, chills, chest pain, shortness of breath. Complete work-up done in the ED, patient is admitted for further evaluation due to his clinical presentation. We are con sulted for medical management, patient was seen and evaluated in the ER, he was awake a lert and oriented x4, in condition stable. Informant/historian: patient History Additional medical history: HIV Additional surgical history: Daniella Additional family history: [place] Alcohol use: Alcohol use Drug use: Denies recreational drugs Smoking status for patients 13 years old or olde r: Never Smoker Other social history: Local resident, [employer] socia l support Medication/Allergy-Vaccine Hx Allergies: Coded Allergies: No Known Allergies (05/26/10) Review of Systems Constitutional: Reports: generalized weakness. GI: Reports: abdominal pain, anorexia, diarrhea, jair sea, vomiting. All systems rev neg: except as marked Objective General VS/I O: Vital Signs: Date Time Temp Pulse Resp B/P B/P Pulse O2 O2 F low FiO2 Mean Ox Delivery Rate 02/18 2000 79 17 135/75 95 98 Room air 02/17 1837 97.9 115 18 152/81 104 99 Room air PATIENT WEIGHT: Weight (lb): Weight (oz): Weight (kg): 65.909 Results Findings/Data: Laboratory Tests 02/17 1850 Chemistry Sodium (134 - 147 mmol/L) 140 Potassium (3.4 - 5.0 mmol/L) 4.3 Chloride (100 - 108 mmol/L) 97 L Carbon Dioxide (21 - 32 mmol/L) 21 Anion Gap (4.0 - 15.0 GAP calc) 22.0 H BUN (7 - 18 MG/DL) 20 H Creatinine (0.8 - 1.3 MG/DL) 1.4 H Glomerular Filtr Rate (>60 estGFR) >=60 max est imate Glucose (70 - 110 MG/DL) 220 H Calcium (8.5 - 10.1 MG/DL) 9.7 Total Bilirubin (0.2 - 1.2 MG/DL) 1.10 Direct Bilirubin (0.00 - 0.30 MG/DL) 0.30 Indirect Bilirubin (0.2 - 1.2 MG/DL) 0.80 AST (15 - 37 Unit/L) 209 H ALT (12 - 78 Unit/L) 170 H Total Alk Phosphatase (50 - 136 Unit/L) 118 Total Protein (6.4 - 8.2 G/DL) 10.6 H Albumin (3.4 - 5.0 G/DL) 4.7 Lipase (114 - 286 Unit/L) 39 L Laboratory Tests 02/17 1851 Hematology WBC (3.5 - 11.0 K/mm3) 13.0 H RBC (4.70 - 6.10 M/mm3) 5.20 Hgb (12.3 - 15.9 G/DL) 15.8 Hct (35.8 - 46.7 %) 43.8 MCV (86.3 - 98.9 Fl) 84.2 L MCH (28.9 - 34.4 pg) 30.4 MCHC (32.1 - 34.5 G/DL) 36.1 H RDW (11.5 - 14.5 SD) 13.3 Plt Count (150 - 450 K/mm3) 329 MPV (7.0 - 9.6 fL) 11.30 H Neut % (Auto) (40 - 76 %) 90.5 H Lymph % (Auto) (20.5 - 51.1 %) 6.5 L [place] % (Auto) (1.7 - 9.3 %) 2.5 Eos % (Auto) (0.0 - 6.0 %) 0.0 Baso % (Auto) (0.0 - 2.0 %) 0.3 Neut # (Auto) (1.8 - 7.6 K/mm3) 11.7 H Lymph # (Auto) (0.6 - 3.0 K/mm3) 0.9 [place] # (Auto) (0.2 - 1.5 K/mm3) 0.3 Eos # (Auto) (0.0 - 0.4 K/mm3) 0.0 Baso # (Auto) (0.0 - 0.2 K/mm3) 0.0 Abs Immat Gran (auto) (0.00 - 0.03 x10 3/uL) 0. 03 Add Manual Diff (CRITERIA DIFF/SCN) NO Immature Gran % (0.0 - 5.0 %) 0.2 Nucleated RBC % (0.0 - 1.0 /100WBC%) 0.0 Radiology data: Recent Impressions: CAT SCAN - CT ABD PELVIS W/CONT 02/17 1907 Report Impression - Status: SIGNED Entered: 02/17/20222000 IMPRESSION: No definite acute bowel pathology. Visualization of a normal-appearing appendix. No extraluminal collection identifiabl e Cholecystectomy changes Impression By: [email or web address] - Chanda linn M.D. RADIOLOGY - XR CHEST 1 V 02/18 1916 Report Impression - Status: SIGNED Entered: 02/17/20221937 IMPRESSION: No radiographic evidence of acute cardiopulmonar y process. Impression By: [email or web address] - Lacy Ledezma Scores Searcy Searcy Coma Score: Copyright Sir Yoshi Webb Copyright Sir Abner Webb Eye opening: (4) Spontaneous Verbal response: (5) Oriented Best motor response: (6) Obeys commands GCS Score: 15 Diagnosis, Assessment Plan Problem List/A P: 1. High anion gap metabolic acidosis 2. Abdominal pain 3. Intractable nausea and vomiting 4. HIV (human immunodeficiency virus infection) 5. LINDA (acute kidney injury) 6. Hyperglycemia 7. Hypertension Code Status/Resusc. Discussion Resuscitation discussion: Discussed with: patient Code status: full code Free Text DxA P Notes Free Text DxA P Notes: Problem List/A P: 1. High anion gap metabolic acidosis -Admitted on telemetry -Anion gap is 22, blood glucose 200s, BUN 22, cr eatinine 1.4 -We will continue to trend lab -Fluid resuscitation 2. Abdominal pain -CT abdomen and pelvis was completed, owed no definite acute bowel pathology -Likely due to to DKA symptoms -Pain management with analgesic 3. Intractable nausea and vomiting -Symptom management with antiemetic -Likely due to use tools DKA's symptoms -We will continue medical monitor for further ev aluation 4. HIV (human immunodeficiency virus infection) -Patient stated been positiv e for about 10 years not currently on medication due to financial status -We will order CD4 count -We will refer to infectious disease for outpati ent management 5. LINDA (acute kidney injury) -Continue to monitor labs, BMP -Fluid resuscitation 6. Hyperglycemia -Hemoglobin A1c -Patient is not known to be diabetic -Accu-Cheks every 6 hours with medium dose cover age -Fluid reperfusion 7. Hypertension -Vital signs as per unit protocol -Patient is not known to be hypertensive -As needed hydralazine if uncontrolled BP -Will consider start patient in hypertension man agement regimen 8. DVT/GI ppx -Lovenox/Pepcid 60 minutes time spent towards this encounter rev iewing patient chart, labs, developing a plan of treatment, and discussion o f the plan of treatment with patient and staff directly involve in his care. at 0156 Electronically Signed by Kaitlin Porter MD on at 0925 RPT #: [id number] END OF REPORT 2022-02-17 18:44:00-00:00 [facility] ([facility]) EMERGENCY PROVIDER REPORT REPORT#:[id number] REPORT STATUS: Signed DATE:02/17/22 TIME:1843 PATIENT: QUETA DOYLE UNIT #: [id number] ROOM/BED: [place] [address] : 84 AGE: 37 SEX: M PCP PHYS: No Primar y or Family Physician SERVICE AUTHOR: Kasia Moore ACCOUNTS PAYABLE ACCOUNTANT * ALL edits or amendments must be made on the el [employer]/computer document * Kasia Moore 02/17/221843: HPI-Abd Pain M Under 40 Free Text HPI Notes Free Text HPI Notes 37-year-old male with history of HIV pre sents to the emergency department with abdominal pain, nausea and vomiting that began l ast night. Patient reports vomiting 10 times since onset. Denies fever chil ls chest pain shortness of breath diarrhea or constipation. General Confirmed Patient Yes Initial Greet Date/Time 02/17/221838 Presentation Chief Complaint Abdominal pain, Nausea, Vomiting moderate Hx Obtained From Patient Onset Occurred Yesterday Associated with Reports: Nausea, Vomiting. Denies: Back pain, Ch est pain, Diarrhea, Urinary frequency, Urinary retention, Urinary tract symp toms. Exacerbated by Nothing Relieved by Nothing Risk-Abd Pain M Under 40 )( Torsion Risk factors reviewed Review of Systems ROS Statements All systems rev neg except as marked. Past Medical History - Adult Stated Complaint VOMITING, HEADACHE, ABDOMINAL P AIN Allergies Coded Allergies: No Known Allergies (05/26/10) Home Medications Active Scripts traMADol (ULTRAM) 50 MG PO Q6H PRN PRN ACUTE TONE N traMADol (ULTRAM) 50 MG PO Q6H PRN PRN ACUTE PA IN #16 TABS Prov: 07/13/20 Discontinued Scripts ACYCLOVIR (ZOVIRAX) 800 MG PO 5XDAY ACYCLOVIR (ZOVIRAX) 800 MG PO 5XDAY #35 TABS Prov: 08/19/21 DC: 02/18/22 1255 Therapy completed CIPROFLOXACIN (CIPRO) 750 MG PO Q12HR CIPROFLOXACIN (CIPRO) 750 MG PO Q12HR #14 TAB Prov: 07/24/21 DC: 02/18/22 1255 Therapy completed metroNIDAZOLE (FLAGYL) 500 MG PO Q8HR metroNIDAZOLE (FLAGYL) 500 MG PO Q8HR #21 TAB Prov: 07/24/21 DC: 02/18/22 1255 Therapy completed Reported Medications [SYMTUZA] Additional Medical History HIV Additional Surgical History Daniella Additional Family History NC Alcohol Use Alcohol use Drug Use Denies recreational drugs Smoking status for patients 13 years old or olde r: Never Smoker Other Social History Local resident, Good social support Physical Exam Vital Signs Vital Signs First Documented: Result Date Time Pulse Ox 99 02/17 1837 B/P 152/81 02/17 1837 B/P Mean 104 02/17 1837 O2 Delivery Room air 02/17 1837 Temp 36.6 02/17 1837 Pulse 115 02/17 1837 Resp 18 02/17 1837 Last Documented: Result Date Time Pulse Ox 98 02/18 2000 B/P 135/75 02/18 2000 B/P Mean 95 02/18 2000 O2 Delivery Room air 02/18 2000 Pulse 79 02/18 2000 Resp 17 02/18 2000 Temp 36.6 02/17 1837 Review of Vital Signs Reviewed Focused PE Abdomen/GI Abdomen/GI Atraumatic, Soft, No distention Tenderness/Guarding/Rebound Tender periumbilical, Guarding voluntary. Free Text PE Notes Free Text PE Notes General/Const: Awake, Alert, No acute di stress, Well appearing, Well hydrated, MS Head: Atraumatic, Normocephalic Eyes Atraumatic: EOMI, No nystagmus, No periorbi sultana swelling, No scleral icterus Ears/Nose/Throat: Atraumatic, Airway patent, Muc ous membranes moist, Pharynx NL, No trismus MS Neck: Atraumatic, Supple, No meningismus, Ful l range of motion Respiratory/Chest: Atraumatic, Breath sounds NL, Breath sounds = bilat, No respiratory distress Cardiovascular: Heart rate NL, Regular rhythm, C ap refill not delayed, Peripheral circulation NL Back: Atraumatic, Full range of motion, Non-tend er Skin: Skin Atraumatic, Color NL, No rash, Warm, Dry, Intact, Turgor NL, No swelling Neurologic: Oriented X3, Speech NL, No motor def icits, Cerebellar NL, Memory NL, Gait NL Psychiatric: Affect NL, Mood NL, Cognitive function NL, Judgment/insight NL, Thought content NL Interpretation Diagnostics Lab Results Interpretation Considerations Independ review imaging Lab Imaging Statement Laboratory radiographic studies reviewed and con sidered in the medical decision-making. Re-Evaluation MDM Free Text MDM Notes Free Text MDM Notes Discussed with patient lab results creatinine 1. 4, need for admission and continued IV fluids. Patient agrees with plan. P atient will be admitted )( Re-Evaluation/Progress #1 )( Re-Eval Status Improved Re-Eval Abdomen Soft, Non-tender Pain Re-Evaluation Pain improved Exam Post Tx - General Active, Alert Plan Post Re-Eval Continue IV fluids, Plan admit ED Course Patient Course Stable Medication(s) Ordered Medication(s) Ordered: Central Nervous System Agents Sig/Sydney Start time Last Medication Dose Route Stop Time Status Admin Morphine Sulfate 4 MG X1ED STA 02/17 184 DC IV 02/17 184 1859 Diagnostic Agents Sig/Sydney Start time Last Medication Dose Route Stop Time Status Admin Iopamidol 0 .STK-MED ONE 02/17 1855 DC 02/17 .ROUTE 1923 Electrolytic, Caloric, And Parisa Sig/Sydney Start time Last Medication Dose Route Stop Time Status Admin Sodium Chloride 1,000 ML ONCE ONE 02/17 2029 DC 02/17 IV 02/17 Sodium Chloride 50 ML .STK-MED ONE 02/17 1922 D C 02/17 IV 02/17 Sodium Chloride 1,000 ML X1ED STA 02/17 1841 DC 02/17 IV 02/17 1941 185 Gastrointestinal Drugs Sig/Sydney Start time Last Medication Dose Route Stop Time Status Admin Ondansetron HCl 4 MG ONCE ONE 02/18 1844 DC IV 02/17 1845 185 Safety Concerns Patient is safe Differential Diagnosis Differential Diagnosis Appendicitis, Diabetic ke toacidosis, Gastroenteritis, Pancreatitis Pert Findings/Considerations Presentation Acute Severity Evaluation Serious condition Diagnosis Appears Clear Patient Discharge Departure Clinical Impression Clinical Impression Primary Impression: LINDA (acute kidney injury) Secondary Impressions: Elevated glucose Disposition Decision Admit Admit Physician Name Kaitlin Porter MD Admit Physician Hospitalist Request Time 2133 Request Date 02/17/22 )( Admission Accepts Yes )( Accepted Time 2133 )( Accepted Date 02/17/22 Call Information will see patient Discharge/Care Plan Counseled Regarding Diagnosi s, Lab results, Imaging studies, Need for admission (Auto) Prescriptions Current Visit Scripts ONDANSETRON (ZOFRAN) 4 MG PO Q6H PRN PRN NAUSEA/ VOMITING ONDANSETRON (ZOFRAN) 4 MG PO Q6H PRN PRN NAUSEA /VOMITING #15 TABS Admit Note I have spoken with the patie nt and/or caregivers. I have explained the patient's condition, diagnoses and zenia atment plan based on the information available to me at this time. I have answered the patient's and/ or caregiver's questions and addressed any concerns. The patient and/or careg musa have as good an understanding of the patient 's diagnosis, condition and treatment plan as can be expected at this point. The patient has been stabilized within the capability of the emergency department. The patient wi ll be transported for further care and management or will be moved to an observation or inpatient service. I have communicated with the staff or medical p vadimer taking over this patient's care. Braden Gilbert 02/17/221934: Interpretation Diagnostics Lab Results Interpretation Results Laboratory Tests 02/17/221850: [Embedded Image Not Available] Laboratory Tests: 02/17 1850 Chemistry Sodium (134 - 147 mmol/L) 140 Potassium (3.4 - 5.0 mmol/L) 4.3 Chloride (100 - 108 mmol/L) 97 L Carbon Dioxide (21 - 32 mmol/L) 21 Anion Gap (4.0 - 15.0 GAP calc) 22.0 H BUN (7 - 18 MG/DL) 20 H Creatinine (0.8 - 1.3 MG/DL) 1.4 H Glomerular Filtr Rate (>60 estGFR) >=60 max est imate Glucose (70 - 110 MG/DL) 220 H Calcium (8.5 - 10.1 MG/DL) 9.7 Total Bilirubin (0.2 - 1.2 MG/DL) 1.10 Direct Bilirubin (0.00 - 0.30 MG/DL) 0.30 Indirect Bilirubin (0.2 - 1.2 MG/DL) 0.80 AST (15 - 37 Unit/L) 209 H ALT (12 - 78 Unit/L) 170 H Total Alk Phosphatase (50 - 136 Unit/L) 118 Total Protein (6.4 - 8.2 G/DL) 10.6 H Albumin (3.4 - 5.0 G/DL) 4.7 Lipase (114 - 286 Unit/L) 39 L Hematology WBC (3.5 - 11.0 K/mm3) 13.0 H RBC (4.70 - 6.10 M/mm3) 5.20 Hgb (12.3 - 15.9 G/DL) 15.8 Hct (35.8 - 46.7 %) 43.8 MCV (86.3 - 98.9 Fl) 84.2 L MCH (28.9 - 34.4 pg) 30.4 MCHC (32.1 - 34.5 G/DL) 36.1 H RDW (11.5 - 14.5 SD) 13.3 Plt Count (150 - 450 K/mm3) 329 MPV (7.0 - 9.6 fL) 11.30 H Neut % (Auto) (40 - 76 %) 90.5 H Lymph % (Auto) (20.5 - 51.1 %) 6.5 L [place] % (Auto) (1.7 - 9.3 %) 2.5 Eos % (Auto) (0.0 - 6.0 %) 0.0 Baso % (Auto) (0.0 - 2.0 %) 0.3 Neut # (Auto) (1.8 - 7.6 K/mm3) 11.7 H Lymph # (Auto) (0.6 - 3.0 K/mm3) 0.9 [place] # (Auto) (0.2 - 1.5 K/mm3) 0.3 Eos # (Auto) (0.0 - 0.4 K/mm3) 0.0 Baso # (Auto) (0.0 - 0.2 K/mm3) 0.0 Abs Immat Gran (auto) (0.00 - 0.03 x10 3/uL) 0. 03 Add Manual Diff (CRITERIA DIFF/SCN) NO Immature Gran % (0.0 - 5.0 %) 0.2 Nucleated RBC % (0.0 - 1.0 /100WBC%) 0.0 Recent Impressions: CAT SCAN - CT ABD PELVIS W/CONT 02/17 1907 Report Impression - Status: SIGNED Entered: 02/17/20222000 IMPRESSION: No definite acute bowel pathology. Visualization of a normal-appearing appendix. No extraluminal collection identifiabl e Cholecystectomy changes Impression By: [email or web address] - Chanda linn M.D. RADIOLOGY - XR CHEST 1 V 02/18 1916 Report Impression - Status: SIGNED Entered: 02/17/20221937 IMPRESSION: No radiographic evidence of acute cardiopulmonar y process. Impression By: [email or web address] - Lacy Ledezma ECG #1 Interpretation Text/Dict Note EKG reviewed and interpreted by myself. Time 1931. Heart rate 74, normal sinus rhythm, normal intervals, no STEMI. Patient Discharge Departure Vital Signs/Condition Vital Signs First Documented: Result Date Time Pulse Ox 99 02/17 1837 B/P 152/81 02/17 1837 B/P Mean 104 02/17 1837 O2 Delivery Room air 02/17 1837 Temp 36.6 02/17 1837 Pulse 115 02/17 1837 Resp 18 02/17 1837 Last Documented: Result Date Time Pulse Ox 98 02/18 2000 B/P 135/75 02/18 2000 B/P Mean 95 02/18 2000 O2 Delivery Room air 02/18 2000 Pulse 79 02/18 2000 Resp 17 02/18 2000 Temp 36.6 02/17 1837 All vital signs available at the time of this en try have been reviewed. Supervising Physician Note MidLv Saw Pt Alone I have reviewed the PA/ACCOUNTS PAYABLE ACCOUNTANT's note and plan of car e. I was available for consultation as needed at al l times during the patient's visit in the emergency department. I agree with the clinical impression , plan and disposition. Electronically Signed by Braden Keenan MD on at 0126 Electronically Signed by Kasia Moore NP on at 1201 RPT #: [id number] END OF REPORT 2021-08-19 05:55:00-00:00 [facility] ([facility]) EMERGENCY PROVIDER REPORT REPORT#:[id number] REPORT STATUS: Signed DATE:08/19/21 TIME:05 PATIENT: QUETA DOYLE UNIT #: [id number] ROOM/BED: : 84 AGE: 36 SEX: M PCP PHYS: Undefined Provider SERVICE AUTHOR: Boy Costa MD * ALL edits or amendments must be made on the el [employer]/computer document * HPI-Rash/Abscess/Cellulitis Free Text HPI Notes Free Text HPI Notes Patient presents to emergency department for 8 d ays of rash to right hand. Patient states it started sm all but got progressively larger and began to itch. This morning he states it is now painful and cau sing a burning sensation. No fever chills nausea vomiting diarrhea ch est pain shortness of breath abdominal pain. Nothing makes symptoms better nothing the symptoms worse. General Initial Greet Date/Time 08/19/21 0552 Presentation Chief Complaint Blisters, Rash, Red area Review of Systems ROS Statements All systems rev neg except as marked. Basic Review of Systems Basic ROS : No dysuria/shalonda quency, HEM: No bleeding/bruising, NEURO: No change MS, NEURO: No focal deficit Focused Review of Systems Constitutional Denies: Chills, Fatigue, Fever, Malaise. Eyes Denies: Blurred bilat, Discharge bilat, Eye pain bilat, Redness bilat. Ears/Nose/Throat Denies: Ear drainage bilat, Ear ringing bilat, E arache bilat, Hearing loss bilat. Respiratory Denies: Cough, non-productive, Cough, productive , Dyspnea on exertion, Hemoptysis. Cardiovascular Denies: Chest pain, Dyspnea on exertion, Edema, Orthopnea. GI Denies: Abdominal pain, Anorexia, Nausea, Vomiti ng. Skin Reports: Rash. Denies: Burn, Contusion, Swelling , Ulceration. Past Medical History - Adult Stated Complaint BLISTERS ON HAND Allergies Coded Allergies: No Known Allergies (05/26/10) Home Medications Active Scripts traMADol (ULTRAM) 50 MG PO Q6H PRN PRN ACUTE TONE N traMADol (ULTRAM) 50 MG PO Q6H PRN PRN ACUTE PA IN #16 TABS Prov: 07/13/20 CIPROFLOXACIN (CIPRO) 750 MG PO Q12HR CIPROFLOXACIN (CIPRO) 750 MG PO Q12HR #14 TAB Prov: 07/24/21 metroNIDAZOLE (FLAGYL) 500 MG PO Q8HR metroNIDAZOLE (FLAGYL) 500 MG PO Q8HR #21 TAB Prov: 07/24/21 Reported Medications [SYMTUZA] Additional Medical History HIV Past Surgical History: Reports: . Additional Surgical History Daniella Additional Family History [place] Alcohol Use Alcohol use Drug Use Denies recreational drugs Smoking status for patients 13 years old or olde r: Unknown,if ever smoked Other Social History Local resident, Good social support Physical Exam Vital Signs Vital Signs First Documented: Result Date Time Pulse Ox 99 08/19 0554 B/P 132/90 08/19 0554 B/P Mean 104 08/19 0554 O2 Delivery Room air 08/19 0554 Temp 97.0 08/19 0554 Pulse 100 08/19 0554 Resp 16 08/19 0554 Last Documented: Result Date Time Pulse Ox 99 08/19 0615 B/P 132/90 08/19 0615 B/P Mean 104 08/19 0615 O2 Delivery Room air 08/19 0615 Temp 97.0 08/19 0615 Pulse 92 08/19 0615 Resp 16 08/19 0615 Review of Vital Signs Reviewed Basic Physical Exam Basic PE HEAD: Atraumatic/NC, EYES: PERRL, conj clear, ENT: Membranes moist, NECK: Supple, EXT: No gross abnormality, NEURO: alert oriented, NEURO: gross movement NL Focused PE General/Const General/Const Awake, Alert, No acute di stress, Well appearing, Well developed Ears/Nose/Throat Ears/Nose/Throat Atraumatic, Airway patent, No trismus Resp/Chest Respiratory/Chest Atraumatic, Breath sounds NL, Breath sounds = bilat, No respiratory distress Cardiovascular Cardiovascular Heart rate NL, Regular rhythm, C ap refill not delayed, Peripheral circulation NL MS Upper Extrem Upper Extremity/MS Atraumatic, Inspection NL, F ull range of motion MS Lower Extrem Lower Ext/Pelvis/MS Atraumatic, Inspection NL, Full range of motion Skin Skin Warm, Dry Text/Dict Notes Vesicular lesions to right hand between thumb an d second finger Patient Discharge Departure Vital Signs/Condition Vital Signs First Documented: Result Date Time Pulse Ox 99 08/19 0554 B/P 132/90 08/19 0554 B/P Mean 104 / 0554 O2 Delivery Room air 08/19 0554 Temp 97.0 08/19 0554 Pulse 100 / 0554 Resp 16 08/19 0554 Last Documented: Result Date Time Pulse Ox 99 08/19 0615 B/P 132/90 08/19 0615 B/P Mean 104 / 0615 O2 Delivery Room air 08/19 0615 Temp 97.0 08/19 0615 Pulse 92 08/19 0615 Resp 16 08/19 0615 All vital signs available at the time of this en try have been reviewed. Clinical Impression Clinical Impression Primary Impression: Rash and nonspecific skin er uption Disposition Decision Discharge )( Discharged to Home Yes )( Time 0559 )( Date 08/19/21 Discharge/Care Plan (Auto) Prescriptions Current Visit Scripts ACYCLOVIR (ZOVIRAX) 800 MG PO 5XDAY ACYCLOVIR (ZOVIRAX) 800 MG PO 5XDAY #35 TABS X7 DAYS Patient Instructions ED Shingles (Herpes Zoster) Referrals Provider Referral: Caroline Aivla DO Address: [address] [place] [address] [address] [place] [id number] Electronically Signed by Boy Costa MD on at 0634 RPT #: [id number] END OF REPORT 2021-07-24 13:15:00-00:00 [facility] ([facility]) Gastroenterology Progress Note REPORT#:[id number] REPORT STATUS: Signed DATE:07/24/21 TIME:1315 PATIENT: QUETA DOYLE UNIT #: [id number] ROOM/BED: [place] [id number] : 84 AGE: 36 SEX: M ATTEND: Mansoor Carey MD ADM AUTHOR: Karen Aparicio * ALL edits or amendments must be made on the el [employer]/computer document * Karen Aparicio 07/24/21 1315: Subjective Chief complaint: abdominal pain HPI: Reports intermittent epigastric pain Tolerating diet Having bowel movements, denies diarrhea - nonblo scarlett Review of Systems Free Text ROS Notes Free Text ROS Notes: 12 point ROS is negative except as per HPI above Objective General VS/I O: Last Documented: Result Date Time Pulse Ox 99 07/24 1055 B/P 138/91 07/24 1055 B/P Mean 107.1 07/24 1055 O2 Delivery Room air 07/24 1055 Temp 36.9 07/24 1055 Pulse 76 07/24 1055 Resp 18 07/24 1055 24 hour I O ending at 0700: 07/24 0700 07/23 1900 Intake Total Output Total Balance Number 1 Bowel Movements Number Voids 2 Patient 68.6 kg Weight Weight Bed scale Measurement Method PATIENT WEIGHT: Weight (lb): 151 Weight (oz): 3.79 Weight (kg): 68.600 Medications: Active Meds + DC'd Last 24 Hrs Ciprofloxacin HCl (CIPRO) 750 MG Q12HR PO Pantoprazole (PROTONIX) 40 MG Q12HR PO Metronidazole (FLAGYL) 500 MG Q8HR PO Potassium Chloride (K-DUR 20 mEq) 40 MEQ ONCE ON E PO (DC) Dextrose/Water (Dextrose 50% W SYRINGE) 25 ML DIR PRN IV (CKD) Dextrose/Water (Dextrose 50% W SYRINGE) 50 ML DIR PRN IV (CKD) Glucagon (GLUCAGON) 1 MG ASDIR PRN IM Ciprofloxacin/Dextrose (CIPRO 400 MG/D5W 200ML) 200 ML Q12HR IV (DC) Metronidazole/Sodium Chloride (metroNIDAZOLE 500 MG / 100 MLNS) 100 ML Q8H IV (DC) Pantoprazole Sodium (PROTONIX) 40 MG Q12HR IV ( DC) Insulin Human Lispro (HUMALOG) 0 AC HS SUBQ Morphine Sulfate (morphine Sulfate) 2 MG Q6H PRN PRN IV Acetaminophen (TYLENOL) 650 MG Q4H PRN PRN PO Enoxaparin Sodium (lovENOX) 40 MG Q24H SUBQ Hydralazine HCl (APRESOLINE) 10 MG Q6H PRN PRN I V Ondansetron HCl (ZOFRAN) 4 MG Q4H PRN PRN IV Nutrition assessment: The data set between the solid lines has been im ported from the dietitian's assessment. Any exceptions have been noted under Provider comments. BMI Calculated: 21.7 Nutrition related diagnosis: Nutrition diagnosis details: Nutrition problem: Nutrition etiology: Nutrition signs and symptoms: Nutrition prescription: Dietitian name: Assessment completed: Provider comments on imported dietitian assessme nt: Physical Exam HEENT: atraumatic, normocephalic Neck: full range of motion Cardiovascular: normal S1/S2, regular rate rhyth m Respiratory: equal breath sounds, symmetric expa nsion, no distress Abdomen: non-tender, normal bowel sounds, soft Extremities: moves all, normal range of motion Musculoskeletal: full range of motion Neuro/COLLAR SETTER OVERLOCK: alert, oriented X 3 Skin: dry, intact Psychiatry: normal affect, normal judgment/insig ht Results Findings/Data: Laboratory Tests 07/24 07/24 07/24 07/23 07/23 1054 0720 0500 2056 1600 Chemistry POC Glucose (70 - 110 mg/dL) 164 H 134 H 157 H 129 H Total Bilirubin (0.2 - 1.2 MG/DL) 1.00 Direct Bilirubin (0.00 - 0.30 MG/DL) 0.30 Indirect Bilirubin (0.2 - 1.2 MG/DL) 0.70 AST (15 - 37 Unit/L) 83 H ALT (12 - 78 Unit/L) 120 H Total Alk Phosphatase (50 - 136 Unit/L) 90 Total Protein (6.4 - 8.2 G/DL) 7.1 Albumin (3.4 - 5.0 G/DL) 3.2 L Diagnosis, Assessment Plan Free Text A P: Impression 1. Acute pancolitis 2. Elevated LFTs - indirect bili greater than direct bili - Negative hepatitis panel 3. History of HIV Plan 1. Continue antibiotics 2. Continue PPI BID 3. Antiemetics, anaglesia prn 4. Regular diet as tolerated 5. Autoimmune studies pending 6. Trend LFTs 7. Recommend outpatient colonoscopy Julio Loredo 07/24/21 1811: Attestations Physician Attestation Agree w/findings plan: I have personally seen and examined the patient with GITA Kaba. I agree with the HPI, Physical examinations findin gs, and assessment/plan as documented by the PA, and as amended herein by alcy miramontes [ ] Electronically Signed by Karen Aparicio o n 07/24/21 at 1317 Electronically Signed by Julio Loredo MD on 0 07/24/21 at 1812 RPT #: [id number] END OF REPORT 2021-07-24 11:41:00-00:00 [facility] ([facility] Hospitalist Discharge Summary REPORT#:[id number] REPORT STATUS: Signed DATE:07/24/21 TIME:1141 PATIENT: QUETA DOYLE UNIT #: [id number] ROOM/BED: [place] [id number] : 84 AGE: 36 SEX: M ATTEND: Alexy Carey MD ADM AUTHOR: Kaitlin Porter MD * ALL edits or amendments must be made on the el [employer]/computer document * General Information Date of admission: Observation Start Date: Date of admission: 07/22/21 Discharge date: 07/24/21 Discharge diagnosis: see hosp course Hospital course: Mr. Doyle is a 36 yo M with history of HIV (most recent viral load undectable) on Symteza who presented with 5 days of diffuse abdominal pain radiating to back. He reported night sweats, chills, anorexia , nausea and vomiting. Denied diarrhea. He had a similar presentation about 1 year ago with diagnosis of pancreatitis and pancolitis. CTAP shows pancolit is. Lipase normal. 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 Assessment and plan Pancolitis resolved -S/p IV cipro and flagyl: P.o. antibiotics on di scharge -S/p IV fluids, tolerating regular diet HIV -Patient reports compliance with home medication - CD4 count low 317 Outpatient follow-up Hypokalemia Repleted Elevated LFT GI consulted, appreciate recs Suspect elevated LFT likely related to his colitis, patient will need outpatient follow-up with GI and I discussed this with him Noted hepatitis panel negative, autoimmune work- up pending LFTs are trending down, stable for discharge Seen and examined Discharge in stable Discharge time 32 minutes Pt. condition on discharge: improved, stable Free Text DxA P Notes Free text DxA P notes: Free Text A P: Assessment Pancolitis HIV Hypokalemia Plan Pancolitis - continue IV cipro and flagyl - continue IV fluids, advance diet as tolerated - pain management as needed HIV - reconcile and continue home medications - CD4 count Hypokalemia - potassium replacement Elevated LFT GI consult DVT ppx: lovenox Code status: Full Med Rec Med Rec Discharge meds: Stop taking the following medications: metroNIDAZOLE (FLAGYL) 500 MG TAB 500 MILLIGRAM ORAL THREE TIMES A DAY. Qty = 30 CEPHALEXIN (KEFLEX) 500 MG CAP 500 MILLIGRAM ORAL EVERY 12 HOURS. Qty = 20 Continue taking these medications: [SYMTUZA] traMADol (ULTRAM) 50 MG TAB 50 MILLIGRAM ORAL EVERY 6 HOURS NEEDED. as n eeded for ACUTE PAIN Qty = 16 Start taking the following new medications: CIPROFLOXACIN (CIPRO) 250 MG TAB 750 MILLIGRAM ORAL EVERY 12 HOURS. Qty = 14 No Refills metroNIDAZOLE (FLAGYL) 250 MG TAB 500 MILLIGRAM ORAL EVERY 8 HOURS. Qty = 21 No Refills Discharge Instructions PCP Discharge to: Home/Self Care Additional Discharge Routines: PCP Follow-Up, Co nsultant Follow-Up Diet: Regular Activity: As Tolerated Prescriptions: on chart Discharge management: greater than 30 mins Follow-up Appointments PCP follow-up: PCP: No Primary or Family Physician PCP follow up timeframe: In 4 days Consulting provider 1: Provider 1: Julio Loredo MD Specialty: Gastroenterology Consult follow up timeframe: In 1-2 weeks Electronically Signed by Kaitlin Porter MD on at 1458 [facility] #: [id number] END OF REPORT 2021-07-23 16:53:00-00:00 [facility] ([facility]) GE Consultation Note REPORT#:[id number] REPORT STATUS: Signed DATE:07/23/21 TIME:1652 PATIENT: QUETA DOYLE UNIT #: [id number] ROOM/BED: [place] [id number] : 84 AGE: 36 SEX: M ATTEND: Mansoor Carey MD ADM AUTHOR: Nusrat Hilliard PA * ALL edits or amendments must be made on the [employer]/computer document * Nusrat Hilliard 07/23/21 1653: History of Present Illness Chief complaint: abdominal pain PCP: PCP: No Primary or Family Physician HPI: Patient is a 36 year old mal e with past medical history of HIV who presented to the hospital on 07/21 with complaints of diffuse abdominal pain for the past 5 days. He also reports associated nausea and vomi ting. He denies diarrhea. CT abdomen/pelvis was done and revealed findings kruger spicious for pancolitis, duodenitis and fatty liver. Blood work today is significant for bili 1.6, indrect bili 1.10, AST 182, ALT 161 and alk phos 102. RUQ ultrasound was unremarkable. GI was consulted for further evalu ation and management. History - Adult longitudinal Additional medical history: HIV Past surgical history: Reports: . Additional surgical history: Daniella Additional family history: [place] Alcohol use: Alcohol use Drug use: Denies recreational drugs Smoking status: Smoking status for patients 13 years old or old er: Never Smoker Other social history: Local resident, Good socia l support Allergies: Coded Allergies: No Known Allergies (05/26/10) Review of Systems Free Text ROS Notes Free Text ROS Notes: 14 body systems reviewed and negative otherwise stated in HPI Objective Physical Exam VS/I O: Last Documented: Result Date Time Pulse Ox 97 07/23 155 B/P 146/93 07/23 155 B/P Mean 110.7 07/23 1551 O2 Delivery Room air 07/23 1550 Temp 98.4 07/23 1550 Pulse 67 07/23 1551 Resp 14 07/23 155 PATIENT WEIGHT: Weight (lb): 151 Weight (oz): 3.79 Weight (kg): 68.600 General appearance: alert, awake, oriented HEENT: atraumatic, normocephalic Neck: full range of motion Cardiovascular: normal S1/S2, regular rate rhyth m Respiratory: equal breath sounds, symmetric expa nsion, no distress Abdomen: non-tender, normal bowel sounds, soft Extremities: moves all, normal range of motion Musculoskeletal: full range of motion Neuro/COLLAR SETTER OVERLOCK: alert, oriented X 3 Skin: dry, intact Psychiatry: normal affect, normal judgment/insig ht Results Findings/Data: Laboratory Tests 07/23/215: [Embedded Image Not Available] Laboratory Tests 07/23 07/23 07/23 07/23 1600 1151 0925 0816 Chemistry POC Glucose (70 - 110 mg/dL) 129 H 150 H 109 Total Bilirubin (0.2 - 1.2 MG/DL) 1.60 H Direct Bilirubin (0.00 - 0.30 MG/DL) 0.50 H Indirect Bilirubin (0.2 - 1.2 MG/DL) 1.10 AST (15 - 37 Unit/L) 182 H ALT (12 - 78 Unit/L) 161 H Total Alk Phosphatase (50 - 136 Unit/L) 102 Total Protein (6.4 - 8.2 G/DL) 7.5 Albumin (3.4 - 5.0 G/DL) 3.3 L 07/23 Chemistry Sodium (134 - 147 mmol/L) 139 Potassium (3.4 - 5.0 mmol/L) 3.3 L Chloride (100 - 108 mmol/L) 103 Carbon Dioxide (21 - 32 mmol/L) 30 Anion Gap (4.0 - 15.0 GAP calc) 6.0 BUN (7 - 18 MG/DL) 4 L Creatinine (0.8 - 1.3 MG/DL) 0.7 L Glomerular Filtr Rate (>60 estGFR) >=60 max est imate Glucose (70 - 110 MG/DL) 114 H POC Glucose (70 - 110 mg/dL) 119 H Calcium (8.5 - 10.1 MG/DL) 8.5 Total Bilirubin (0.2 - 1.2 MG/DL) 1.60 H AST (15 - 37 Unit/L) 153 H ALT (12 - 78 Unit/L) 144 H Total Alk Phosphatase (50 - 136 Unit/L) 98 Total Protein (6.4 - 8.2 G/DL) 7.1 Albumin (3.4 - 5.0 G/DL) 3.1 L Globulin (GM/dL) 4.0 Albumin/Globulin Ratio (1.2 - 2.2 RATIO) 0.8 L Laboratory Tests 07/23 0455 Hematology WBC (3.5 - 11.0 K/mm3) 2.9 L RBC (4.70 - 6.10 M/mm3) 3.85 L Hgb (12.3 - 15.9 G/DL) 11.7 L Hct (35.8 - 46.7 %) 32.3 L MCV (86.3 - 98.9 Fl) 83.9 L MCH (28.9 - 34.4 pg) 30.4 MCHC (32.1 - 34.5 G/DL) 36.2 H RDW (11.5 - 14.5 SD) 12.8 Plt Count (150 - 450 K/mm3) 122 L MPV (7.0 - 9.6 fL) 11.40 H Neut % (Auto) (40 - 76 %) 49.6 Lymph % (Auto) (20.5 - 51.1 %) 37.0 [place] % (Auto) (1.7 - 9.3 %) 7.2 Eos % (Auto) (0.0 - 6.0 %) 5.5 Baso % (Auto) (0.0 - 2.0 %) 0.7 Neut # (Auto) (1.8 - 7.6 K/mm3) 1.5 L Lymph # (Auto) (0.6 - 3.0 K/mm3) 1.1 [place] # (Auto) (0.2 - 1.5 K/mm3) 0.2 Eos # (Auto) (0.0 - 0.4 K/mm3) 0.2 Baso # (Auto) (0.0 - 0.2 K/mm3) 0.0 Abs Immat Gran (auto) (0.00 - 0.03 x10 3/uL) 0. 00 Add Manual Diff (CRITERIA DIFF/SCN) NO Immature Gran % (0.0 - 5.0 %) 0.0 Nucleated RBC % (0.0 - 1.0 /100WBC%) 0.0 Radiology data: Recent Impressions: ULTRASOUND - US ABDOMEN LTD 07/23 0951 Report Impression - Status: SIGNED Entered: 07/23/2021 1043 IMPRESSION: No acute sonographic abnormality of the abdomen. Impression By: [email or web address] - Claudia Fishman M.D. Diagnosis, Assessment Plan Free Text DxA P Notes Free Text DxA P Notes: Impression 1. Acute pancolitis 2. Elevated LFTs - indirect bili greater than direct bili 3. History of HIV Plan 1. Continue antibiotics 2. Continue PPI BID 3. Antiemetics, anaglesia prn 4. Regular diet as tolerated 5. Hepatitis panel, autoimmune studies pending 6. Trend LFTs 7. Recommend outpatient colonoscopy Julio Loredo 07/23/21 1751: Attestations Physician Attestation Agree w/findings plan: I have personally seen and examined the patient with GITA Osborn. I agree with the HPI, Physical exami nations findings, and assessment/plan as documented by the GITA, and as amended herein by me Electronically Signed by Nusrat Hilliard on 07/07 08/27 at 1702 Electronically Signed by Julio Loredo MD on 0 07/23/21 at 1751 RPT #: [id number] END OF REPORT 2021-07-23 13:30:00-00:00 [facility] ([facility]) Hospitalist Progress Note REPORT#:[id number] REPORT STATUS: Signed DATE:07/23/21 TIME:1330 PATIENT: QUETA DOYLE UNIT #: [id number] ROOM/BED: [place] [address] : 84 AGE: 36 SEX: M ATTEND: Alexy Carey MD ADM AUTHOR: Kaitlin Porter MD * ALL edits or amendments must be made on the [employer]/computer document * Subjective Chief complaint: abdominal pain Review of Systems Respiratory: Denies: SOB. Cardiovascular: Denies: chest pain. Objective General VS/I O: Vital Signs: Date Time Temp Pulse Resp B/P B/P Pulse O2 O2 F low FiO2 Mean Ox Delivery Rate 07/23 1117 36.8 67 18 148/102 117 99 Room air 07/23 0803 36.8 66 18 132/95 107 98 Room air 07/23 0518 36.9 72 20 152/95 114 97 07/22 2335 36.8 72 15 141/98 112 99 07/22 2218 60 16 144/100 114 100 07/22 1410 60 17 143/94 110 98 Room air PATIENT WEIGHT: Weight (lb): 151 Weight (oz): 3.79 Weight (kg): 68.600 Physical Exam General appearance: alert, awake Cardiovascular: normal heart sounds, regular rat e rhythm Respiratory: aerating well, no distress Abdomen: tenderness, no distention Extremities: moves all, no edema Neuro/COLLAR SETTER OVERLOCK: alert, normal speech Skin: dry, intact Diagnosis, Assessment Plan Free Text DxA P Notes Free text DxA P notes: Free Text A P: Assessment Pancolitis HIV Hypokalemia Plan Pancolitis - continue IV cipro and flagyl - continue IV fluids, advance diet as tolerated - pain management as needed HIV - reconcile and continue home medications - CD4 count Hypokalemia - potassium replacement Elevated LFT GI consult DVT ppx: lovenox Code status: Full Electronically Signed by Kaitlin Porter MD on at 1331 [facility] #: [id number] END OF REPORT 2021-07-22 11:11:00-00:00 [facility] ([facility]) Clinical Note REPORT#:[id number] REPORT STATUS: Signed DATE:07/22/21 TIME:1111 PATIENT: QUETA DOYLE UNIT #: [id number] ROOM/BED: [place] [address] : 84 AGE: 36 SEX: M ATTEND: Alexy Carey MD ADM AUTHOR: Kaitlin Porter MD * ALL edits or amendments must be made on the [employer]/computer document * Clinical Note Note: Patient was admitted for pancolitis, failed outp atient therapy. Patient currently doing better with IV antibiotics and I V fluids. Denies any pain or nausea or vomiting or diarrhea currently. At thi s point I have started clear liquid diets, I will advance diet as tolerated. Possible discharge today or tomorrow if continue s to do well. Kaitlin Porter MD Electronically Signed by Kaitlin Porter MD on at 1112 RPT #: [id number] END OF REPORT 2021-07-22 02:31:00-00:00 [facility] ([facility]) Hospitalist History Physical REPORT#:[id number] REPORT STATUS: Signed DATE:07/22/21 TIME:230 PATIENT: QUETA DOYLE UNIT #: [id number] ROOM/BED: [place] [address] : 84 AGE: 36 SEX: M ATTEND: Alexy Carey MD ADM AUTHOR: Tristin Recinos PA-C * ALL edits or amendments must be made on the [employer]/computer document * Tristin Recinos 07/22/21 0231: History of Present Illness HPI Chief complaint: abdominal pain PCP: PCP: No Primary or Family Physician HPI: Mr. Doyle is a 36 yo M with history of HIV (most recent viral load undectable) on Symteza who presents with 5 days of diffuse abdominal pain radiating to back. He reports night sweats, chi lls, anorexia, nausea and vomiting. Denies diarrhea. He had a similar presentation about 1 year ago w ith diagnosis of pancreatitis and pancolitis. CTAP shows p ancolitis. Lipase normal. Last drink was 5 days ago - he reports 2 12 oz beers and 1 mixed drink. K 2.7. Informant/historian: patient History Past Medical Surgical Hx Patient History: 1. Pancolitis Additional medical history: HIV Additional surgical history: Daniella Family History Additional family history: [place] Social History Alcohol use: Alcohol use Drug use: Denies recreational drugs Smoking status: Smoking status for patients 13 years old or old er: Never Smoker Other social history: Local resident, Good socia l support Medication/Allergy-Vaccine Hx Allergies: Coded Allergies: No Known Allergies (05/26/10) Review of Systems Constitutional: Reports: chills. Denies: fever. Skin: Denies: bruising, contusion. Allergy/Immun: Denies: itching, sneezing. Eyes: Denies: diplopia, eye pain. ENT: Denies: sore throat, throat pain. Respiratory: Denies: CUBA (dyspnea on exertion), SOB. Cardiovascular: Denies: chest pain, palpitations. GI: Reports: abdominal pain, nausea, vomiting. : Denies: dysuria, frequency. Musculoskeletal: Denies: extremity pain, joint pain. Heme: Denies: bleeding, bruising. Neuro: Denies: dizziness, lightheaded. Physical Exam VS/I O: Vital Signs Date Temp Pulse Resp B/P B/P Mean Pulse Ox FiO2 07/21 36.8 79 18 154/92 112 99 Last Documented: Result Date Time Pulse Ox 99 07/21 2317 B/P 154/92 07/21 2318 B/P Mean 112 07/21 2318 O2 Delivery Room air 07/21 2317 Temp 36.8 07/218 Pulse 79 07/21 2318 Resp 18 07/21 2318 24 hour I O ending at 0700: 07/22 0700 07/21 1900 Intake Total Output Total Balance Patient 61.364 kg Weight Weight Stated/Reported Measurement Method Patient Weight and BMI Weight (kg): 61.364 BMI: 20.0 General appearance: alert, no acute distress Head/Eyes: atraumatic, normocephalic ENT: moist mucosal membranes, normal nose Cardiovascular: normal heart sounds, regular rat e rhythm Respiratory: aerating well, no distress Abdomen: tenderness, no distention Extremities: moves all, no edema Neuro/COLLAR SETTER OVERLOCK: alert, normal speech Skin: dry, intact Psychiatry: normal affect, normal mood Results Findings/Data: Laboratory Tests: 07/22 07/21 0210 2326 Chemistry Sodium (134 - 147 mmol/L) 138 Potassium (3.4 - 5.0 mmol/L) 2.7 *L Chloride (100 - 108 mmol/L) 99 L Carbon Dioxide (21 - 32 mmol/L) 31 Anion Gap (4.0 - 15.0 GAP calc) 8.0 BUN (7 - 18 MG/DL) 9 Creatinine (0.8 - 1.3 MG/DL) 1.0 Glomerular Filtr Rate (>60 estGFR) >=60 max est imate Glucose (70 - 110 MG/DL) 165 H Calcium (8.5 - 10.1 MG/DL) 9.2 Total Bilirubin (0.2 - 1.2 MG/DL) 1.80 H AST (15 - 37 Unit/L) 16 ALT (12 - 78 Unit/L) 28 Total Alk Phosphatase (50 - 136 Unit/L) 87 Total Protein (6.4 - 8.2 G/DL) 8.6 H Albumin (3.4 - 5.0 G/DL) 3.7 Globulin (GM/dL) 4.9 Albumin/Globulin Ratio (1.2 - 2.2 RATIO) 0.8 L Lipase (114 - 286 Unit/L) 99 L Hematology WBC (3.5 - 11.0 K/mm3) 3.6 RBC (4.70 - 6.10 M/mm3) 4.35 L Hgb (12.3 - 15.9 G/DL) 13.1 Hct (35.8 - 46.7 %) 36.0 MCV (86.3 - 98.9 Fl) 82.8 L MCH (28.9 - 34.4 pg) 30.1 MCHC (32.1 - 34.5 G/DL) 36.4 H RDW (11.5 - 14.5 SD) 12.8 Plt Count (150 - 450 K/mm3) 158 MPV (7.0 - 9.6 fL) 11.40 H Neut % (Auto) (40 - 76 %) 47.7 Lymph % (Auto) (20.5 - 51.1 %) 38.7 [place] % (Auto) (1.7 - 9.3 %) 11.1 H Eos % (Auto) (0.0 - 6.0 %) 1.9 Baso % (Auto) (0.0 - 2.0 %) 0.6 Neut # (Auto) (1.8 - 7.6 K/mm3) 1.7 L Lymph # (Auto) (0.6 - 3.0 K/mm3) 1.4 [place] # (Auto) (0.2 - 1.5 K/mm3) 0.4 Eos # (Auto) (0.0 - 0.4 K/mm3) 0.1 Baso # (Auto) (0.0 - 0.2 K/mm3) 0.0 Abs Immat Gran (auto) (0.00 - 0.03 x10 3/uL) 0. 00 Add Manual Diff (CRITERIA DIFF/SCN) NO Immature Gran % (0.0 - 5.0 %) 0.0 Nucleated RBC % (0.0 - 1.0 /100WBC%) 0.0 Serology SARS CoV-2 RNA Rapid MINERVA (Negative) Negative Laboratory Tests 07/21/21 2326: [Embedded Image Not Available] Radiology data: Recent Impressions: CAT SCAN - CT ABD PELVIS W/CONT 07/22 0015 Report Impression - Status: SIGNED Entered: 07/22/2021 0040 IMPRESSION: Redemonstrated are findings in this patient's co aysha suspicious for pancolitis. Submucosal edema is also seen in the duodenal C- loop. This is suspicious for duodenitis. Fatty infiltration is again seen in the liver. Impression By: [email or web address] - Howard Mejia Results: labs reviewed, vital signs reviewed Diagnosis, Assessment Plan Free Text A P: Assessment Pancolitis HIV Hypokalemia Plan Pancolitis - continue IV cipro and flagyl - continue IV fluids, advance diet as tolerated - pain management as needed HIV - reconcile and continue home medications - CD4 count pending Hypokalemia - potassium replacement DVT ppx: lovenox Code status: Full Kaitlin Porter 07/22/21 0631: Diagnosis, Assessment Plan Free Text A P: All charts, labs, and imaging studies were revie wed. I agree with the PA/ACCOUNTS PAYABLE ACCOUNTANT's findings, exam, and plan. at 0250 Electronically Signed by Kaitlin Porter MD on at 0632 RPT #: [id number] END OF REPORT 2021-07-22 01:07:00-00:00 [facility] ([facility]) EMERGENCY PROVIDER REPORT REPORT#:[id number] REPORT STATUS: Signed DATE:07/22/21 TIME:0107 PATIENT: QUETA DOYLE UNIT #: [id number] ROOM/BED: [place] [address] : 84 AGE: 36 SEX: M PCP PHYS: No Primar y or Family Physician SERVICE AUTHOR: Boy Costa MD * ALL edits or amendments must be made on the el [employer]/computer document * HPI-Abd Pain M Under 40 Free Text HPI Notes Free Text HPI Notes Patient with past medical history of HIV with undetectable viral load presents to emergency department for abdominal pain and intractable nausea and vomiting. Patient states this has been going on for the la st 5 days. No fever chills diarrhea chest pain shortness of breath. Nothing makes symptoms better eating makes symptoms worse. General Initial Greet Date/Time 07/21/21 2303 Presentation Chief Complaint Abdominal pain Review of Systems ROS Statements All systems rev neg except as marked. Basic Review of Systems Basic ROS EYES: No redness, ENT: No sore throat, HEM: No bleeding/bruising, SKIN : No rash, NEURO: No change MS, NEURO: No focal deficit Focused Review of Systems Constitutional Denies: Chills, Fatigue, Fever, Malaise. Respiratory Denies: Cough, non-productiv e, Cough, productive, Shortness of breath, Wheezing. Cardiovascular Denies: Chest pain, Dyspnea on exertion, Edema, Orthopnea. GI Reports: Abdominal pain, Constipation, Nausea, V omiting. Denies: Diarrhea. Musculoskeletal Denies: Back pain, Extremity pain, Extremity swe lling, Joint pain, Joint swelling. Past Medical History - Adult Stated Complaint NAUSEA,VOMITING AND ABD PAIN Allergies Coded Allergies: No Known Allergies (05/26/10) Home Medications Active Scripts traMADol (ULTRAM) 50 MG PO Q6H PRN PRN ACUTE TONE N traMADol (ULTRAM) 50 MG PO Q6H PRN PRN ACUTE PA IN #16 TABS Prov: 07/13/20 metroNIDAZOLE (FLAGYL) 500 MG PO TID metroNIDAZOLE (FLAGYL) 500 MG PO TID #30 TABS Prov: 07/13/20 CEPHALEXIN (KEFLEX) 500 MG PO Q12H CEPHALEXIN (KEFLEX) 500 MG PO Q12H #20 CAPS Prov: 07/13/20 Reported Medications [SYMTUZA] Additional Medical History HIV Past Surgical History: Reports: . Alcohol Use Alcohol use Drug Use Denies recreational drugs Smoking status for patients 13 years old or olde r: Never Smoker Other Social History Local resident, Good social support Physical Exam Vital Signs Vital Signs First Documented: Result Date Time Pulse Ox 99 07/21 2317 B/P 154/92 07/21 2317 B/P Mean 112 07/21 2317 O2 Delivery Room air 07/21 2317 Temp 98.2 07/21 2317 Pulse 79 07/21 2317 Resp 18 07/21 2317 Last Documented: Result Date Time Pulse Ox 99 07/21 2317 B/P 154/92 07/21 2317 B/P Mean 112 07/21 2317 O2 Delivery Room air 07/21 2317 Temp 98.2 07/21 2317 Pulse 79 07/21 2317 Resp 18 07/21 2317 Review of Vital Signs Reviewed Basic Physical Exam Basic PE HEAD: Atraumatic/NC, EYES: PERRL, conj clear, ENT: Membranes moist, NECK: Supple, EXT: No gross abnormality, SKIN: No rashes, warm/dry, NEURO: alert oriented, NEURO: gross movement NL Focused PE General/Const General/Const Awake, Alert, No acute distress, Well appearing MS Head Head Atraumatic, Normocephalic Eyes Eyes Atraumatic, EOMI, No nystagmus, No periorb ital redness, No periorbital swelling Ears/Nose/Throat Ears/Nose/Throat Atraumatic, Airway patent, No trismus Interpretation Diagnostics Lab Results Interpretation Results Laboratory Tests 07/21/212325: [Embedded Image Not Available] Laboratory Tests: 07/21 2325 Chemistry Sodium (134 - 147 mmol/L) 138 Potassium (3.4 - 5.0 mmol/L) 2.7 *L Chloride (100 - 108 mmol/L) 99 L Carbon Dioxide (21 - 32 mmol/L) 31 Anion Gap (4.0 - 15.0 GAP calc) 8.0 BUN (7 - 18 MG/DL) 9 Creatinine (0.8 - 1.3 MG/DL) 1.0 Glomerular Filtr Rate (>60 estGFR) >=60 max est imate Glucose (70 - 110 MG/DL) 165 H Calcium (8.5 - 10.1 MG/DL) 9.2 Total Bilirubin (0.2 - 1.2 MG/DL) 1.80 H AST (15 - 37 Unit/L) 16 ALT (12 - 78 Unit/L) 28 Total Alk Phosphatase (50 - 136 Unit/L) 87 Total Protein (6.4 - 8.2 G/DL) 8.6 H Albumin (3.4 - 5.0 G/DL) 3.7 Globulin (GM/dL) 4.9 Albumin/Globulin Ratio (1.2 - 2.2 RATIO) 0.8 L Lipase (114 - 286 Unit/L) 99 L Hematology WBC (3.5 - 11.0 K/mm3) 3.6 RBC (4.70 - 6.10 M/mm3) 4.35 L Hgb (12.3 - 15.9 G/DL) 13.1 Hct (35.8 - 46.7 %) 36.0 MCV (86.3 - 98.9 Fl) 82.8 L MCH (28.9 - 34.4 pg) 30.1 MCHC (32.1 - 34.5 G/DL) 36.4 H RDW (11.5 - 14.5 SD) 12.8 Plt Count (150 - 450 K/mm3) 158 MPV (7.0 - 9.6 fL) 11.40 H Neut % (Auto) (40 - 76 %) 47.7 Lymph % (Auto) (20.5 - 51.1 %) 38.7 [place] % (Auto) (1.7 - 9.3 %) 11.1 H Eos % (Auto) (0.0 - 6.0 %) 1.9 Baso % (Auto) (0.0 - 2.0 %) 0.6 Neut # (Auto) (1.8 - 7.6 K/mm3) 1.7 L Lymph # (Auto) (0.6 - 3.0 K/mm3) 1.4 [place] # (Auto) (0.2 - 1.5 K/mm3) 0.4 Eos # (Auto) (0.0 - 0.4 K/mm3) 0.1 Baso # (Auto) (0.0 - 0.2 K/mm3) 0.0 Abs Immat Gran (auto) (0.00 - 0.03 x10 3/uL) 0. 00 Add Manual Diff (CRITERIA DIFF/SCN) NO Immature Gran % (0.0 - 5.0 %) 0.0 Nucleated RBC % (0.0 - 1.0 /100WBC%) 0.0 Microbiology: Date/Time Procedure - Status Source Growth 07/22 0106 MRSA Screen - ORD NASAL Recent Impressions: CAT SCAN - CT ABD PELVIS W/CONT 07/22 0015 Report Impression - Status: SIGNED Entered: 07/22/2021 0040 IMPRESSION: Redemonstrated are findings in this patient's co aysha suspicious for pancolitis. Submucosal edema is also seen in the duodenal C- loop. This is suspicious for duodenitis. Fatty infiltration is again seen in the liver. Impression By: [email or web address] - Howard Mejia Re-Evaluation MDM ED Course Medication(s) Ordered Medication(s) Ordered: Anti-Infective Agents Sig/[place] Start time Last Medication Dose Route Stop Time Status Admin Metronidazole/Sodium 100 ML X1ED STA 07/22 0105 DC 07/22 Chloride IV 07/22 0204 0122 Ciprofloxacin/ 200 ML X1ED STA 07/22 0104 DC Dextrose IV 07/22 0203 0125 Central Nervous System Agents Sig/S[place] Start time Last Medication Dose Route Stop Time Status Admin Morphine Sulfate 4 MG X1ED STA 07/21 2321 DC IV 07/21 2322 2356 Diagnostic Agents Sig/[place] Start time Last Medication Dose Route Stop Time Status Admin Iopamidol 0 .STK-MED ONE 07/21 2331 DC 07/22 .ROUTE 0018 Electrolytic, Caloric, And Parisa Sig/Syd[place] Start time Last Medication Dose Route Stop Time Status Admin Sodium Chloride 1,000 ML .[id number] 07/22 0115 AC 07/22 IV 07/23 0005 0126 Sodium Chloride 50 ML .STK-MED ONE 07/22 0019 DC 07/22 IV 07/22 0020 0019 Potassium Chloride 40 MEQ X1ED STA 07/21 2358 D C 07/22 PO 07/21 2359 0001 Sodium Chloride 1,000 ML ONCE ONE 07/21 2330 DC 07/21 IV 07/21 2331 2356 Gastrointestinal Drugs Sig/S[place] Start time Last Medication Dose Route Stop Time Status Admin Ondansetron HCl 4 MG X1ED STA 07/21 2321 DC IV 07/21 2322 2356 Patient Discharge Departure Vital Signs/Condition Vital Signs First Documented: Result Date Time Pulse Ox 99 07/21 2317 B/P 154/92 07/21 2317 B/P Mean 112 07/21 231 O2 Delivery Room air 07/21 2317 Temp 98.2 07/21 2317 Pulse 79 07/21 2317 Resp 18 07/21 2317 Last Documented: Result Date Time Pulse Ox 99 07/21 2317 B/P 154/92 07/21 2317 B/P Mean 112 07/21 2317 O2 Delivery Room air 07/21 2317 Temp 98.2 07/21 2317 Pulse 79 07/21 2317 Resp 18 07/21 2317 All vital signs available at the time of this en try have been reviewed. Clinical Impression Clinical Impression Primary Impression: Pancolitis Disposition Decision Admit Admit Physician Name Matthew Carey MD Admit Physician Hospitalist Request Time 0109 Request Date 07/22/21 )( Admission Accepts Yes )( Accepted Time 010 )( Accepted Date 07/22/21 Call Information will see patient, agrees with eval, agrees with plan Electronically Signed by Boy Costa MD on at 0545 [facility] #: [id number] END OF REPORT 2020-07-13 08:51:00-00:00 [id number] [address] PATIENT NAME: QUETA DOYLE ADMIT DATE: 07/10/20 ACCOUNT NO: [id number] ROOM NO: [facility] AGE: 35 REPORT TYPE: CONSULTATION SEX: M ADMITTING PHYSICIAN: Kaitlin Porter MD ATTENDING PHYSICIAN: Kaitlin Porter MD CONSULTATION DATE: 07/11/2020 CONSULTING PHYSICIAN: Radha Murillo MD LOCATION: ____ REASON FOR CONSULTATION: Acute abdominal pain wi th nausea and history of pancreatitis. INDICATIONS: Mr. Doyle is a 35-year-old gentlem an with past history of alcoholic pancreatitis. He is also HIV positive. For a while, he did well; however, after that he went back to again alcohol binge. After the last alcohol binge, he started having epigastric pain radiating to the back along with some nausea, no real vomiting. The meal increased his vomiting. However, he denies any hematemesis, melena, or hematochezia. Since coming to the hospital, he denies any fever, chills. Abdominal pain has dec reased to 3/10. He is hungry and tolerating clear liquid diet. No other new s ymptoms have been reported. According to him, this is identical to his past episode of pancreatitis. PAST MEDICAL HISTORY: HIV disease and alcohol-re lated pancreatitis. PAST SURGICAL HISTORY: Not related above. FAMILY HISTORY: Denies any gastrointestinal neil gnancies in the family. SOCIAL HISTORY: As elaborated above in a ddition to the occasional recreational drug. ALLERGIES: REVIEWED IN THE CHART. MEDICATIONS: Reviewed in the chart. REVIEW OF SYSTEMS: GENERAL: No loss of taste. No fever or chills. N o weight loss, no recent weight gain. PULMONARY: No shortness of breath, cough, or expectoration. CARDIAC: No palpitations or heart murmur. No ort hopnea or dyspnea. GASTROINTESTINAL: As elaborated above. MUSCULOSKELETAL: No arthralgia, myalgia. No limi tation of activities. DERMATOLOGICAL: No pruritus, no discoloration. NEUROENDOCRINE: None. NEUROPSYCHIATRIC: None. PATIENT NAME: QUETA DOYLE 89 PHYSICAL EXAMINATION: GENERAL: Young male, at this time, no other acut e distress noted. He appears to be quite calm and comfortable and composed. HEENT: Atraumatic, normocephalic. No icterus. No pallor. Oropharyngeal area is clear, not dry. NECK: Supple. No lymphadenopathy. Trachea is promise tral in position. No thyromegaly. CHEST: Clear to auscultation and percussion. Goo d air exchange. CARDIAC: Normal S1 and S2. No S3 or S4. ABDOMEN: Soft, minimum tenderness in the epigast rium on deep palpation. No hepatomegaly, no splenomegaly, no rebound. Bowel sounds are present, but feeble, no ascites, no succussion splash, no ecc hymosis. No enlarged veins. EXTREMITIES: Upper and lower extremities are nor mal and symmetrical bilaterally. DERMATOLOGIC: Examination of skin: Exposed surfaces appears to be fine. NEUROLOGICAL: Alert and oriented x3, intact alem ry, mentation, judgment. Can move all parts of extremities without any limita tion. No asterixis. No flapping tremor. DIAGNOSTIC DATA: Hemoglobin and hematocrit is no rmal. AST 61, ALT is a 50, platelet count 93. Lipase is 535. CT only pancre atic edema "colitis," which could be as a result of pancreatic inflammation. IMPRESSION, PLAN AND RECOMME NDATION: Mr. Doyle is a 35-year-old gentleman with abdominal pain, nausea, vomiting, and alcohol bi nge. His characteristic pain and perception is consistent with previous pancr eatitis. Therefore, conservative treatment. His treatment will be. 1. No alcohol. 2. No alcohol. 3. No alcohol. I had a long discussion with the patient regardi ng this. He promised to abide by. With the CT abnormality of c olitis, this is likely a false positive finding due to pancreatitis and edema. However, this will be followed up. At this time, the patient does not have any active symptoms. His diet should be low-fat diet and we can advan ce his diet. If otherwise he does well, he could be sent home. Further treatm ent to be done as an outpatient. Dictated By: Radha Murillo MD WT: CON:L.HIM/YOELI/NTS Conf#: [id number]/DID#: [id number] Authenticated by Radha Murillo MD On 07/15/2020 08:37:27 AM PATIENT NAME: QUETA DOYLE 354 at 0837 PATIENT NAME: QUETA DOYLE 89 2020-07-12 12:55:00-00:00 [facility] ([facility] Hospitalist Progress Note REPORT#:[id number] REPORT STATUS: Signed DATE:07/12/20 TIME:1255 PATIENT: QUETA DOYLE UNIT #: [id number] ROOM/BED: [place] [address] : 84 AGE: 35 SEX: M ATTEND: Francis Porter MD ADM AUTHOR: Kaitlin Porter MD * ALL edits or amendments must be made on the el [employer]/computer document * Subjective Chief Complaint: No nausea or abdominal pain currently No bowel movement since admission Review of Systems Respiratory: Denies: SOB. Cardiovascular: Denies: chest pain. GI: Denies: nausea, vomiting. Objective General VS/I O: Vital Signs: Date Time Temp Pulse Resp B/P B/P Pulse O2 O2 F low FiO2 Mean Ox Delivery Rate 07/12 1057 36.9 65 14 138/88 104.3 100 Room air 07/12 0657 37.0 69 14 136/90 105.5 98 Room air 07/12 0444 37.0 65 18 152/95 114.2 99 Room air 07/11 2330 36.7 66 18 144/96 112.3 100 Room air 07/11 1912 37.1 72 18 162/95 117.4 100 Room ai r 07/11 1558 36.9 67 12 139/93 108.1 99 Room air 24 hour I O ending at 0700: 07/12 0700 07/11 1900 Intake Total 2040.00 1500.00 Output Total Balance 2040.00 1500.00 Intake, IV 2040.00 1500.00 Intake, Oral 0 Number Voids 1 PATIENT WEIGHT: Weight (lb): Weight (oz): Weight (kg): 61.800 Physical Exam General appearance: alert, awake Cardiovascular: normal capillary refill, normal heart sounds Respiratory: clear to auscultation, no distress Abdomen: non-tender, normal bowel sounds , soft, no distention, no guarding, no hernia, no mass/organomegaly, no rebound Extremities: moves all, normal capillary refill, normal range of motion, no edema Musculoskeletal: normal inspection Neuro/COLLAR SETTER OVERLOCK: alert, oriented X 3 Skin: dry, intact Lymphatics: neck normal Diagnosis, Assessment Plan Free Text DxA P Notes Free text DxA P notes: Diagnosis, Assessment Plan Problem List/A P: 1. Acute pancreatitis npo.ivf, gi consult prn pain meds adviced to quit alcohol Lipase level elevated, CT A/P noted 2. Pancolitis check stool studies including C diff-could not be done as diarrhea resolved IVF GI consult 3. HIV (human immunodeficiency virus infection) resume home meds: Okay to take home medications check CD4 level Patient is clinically improv ed today July 12, lipase within normal limits today, will start clear liquid diet and advance as tole rated, possible discharge tomorrow if stable and tolerating a diet. At thi s point I do not see GI recommendations yet Resuscitation discussion: Discussed with: patient Code status: full code Electronically Signed by Kaitlin Porter MD on 07/27 at 1256 RPT #: [id number] END OF REPORT 2020-07-11 12:56:00-00:00 [facility] ([facility]) Hospitalist Progress Note REPORT#:[id number] REPORT STATUS: Signed DATE:07/11/20 TIME:1256 PATIENT: QUETA DOYLE UNIT #: [id number] ROOM/BED: [place] [address] : 84 AGE: 35 SEX: M ATTEND: Bonny Porter MD ADM AUTHOR: Kaitlin Porter MD * ALL edits or amendments must be made on the [employer] document * Subjective Chief Complaint: Less nausea, still has abdominal pain Review of Systems Respiratory: Denies: SOB. Cardiovascular: Denies: chest pain. GI: Reports: abdominal pain, nausea. Denies: vomitin g. Objective General VS/I O: Vital Signs: Date Time Temp Pulse Resp B/P B/P Pulse O2 O2 F low FiO2 Mean Ox Delivery Rate 07/11 1054 36.4 72 12 147/99 115.3 99 Room air / 0848 36.8 66 12 149/95 113.1 99 Room air 07/11 0345 36.9 65 18 152/99 116.8 98 Room air 07/10 2305 36.6 57 18 153/96 114.8 100 Room air 07/10 2121 36.8 56 18 171/92 118.7 100 Room air 07/10 2001 52 16 138/87 104 100 / 1730 75 16 163/91 115 100 / 1443 36.4 86 18 164/94 117 100 Room air 24 hour I O ending at 0700: 06/05 0700 06/04 1900 Intake Total 2100.00 Output Total Balance 2100.00 Intake, IV 2100.00 Output, Emesis Patient 61.8 kg Weight Weight Standing scale Measurement Method PATIENT WEIGHT: Weight (lb): Weight (oz): Weight (kg): 61.800 Physical Exam General appearance: alert, awake Cardiovascular: normal capillary refill, normal heart sounds Respiratory: clear to auscultation, no distress Abdomen: tenderness, normal bowel sounds, soft, no distention Extremities: moves all, normal capillary refill, normal range of motion, no edema Musculoskeletal: normal inspection Neuro/COLLAR SETTER OVERLOCK: alert, oriented X 3 Skin: dry, intact Lymphatics: neck normal Diagnosis, Assessment Plan Free Text DxA P Notes Free text DxA P notes: Diagnosis, Assessment Plan Problem List/A P: 1. Acute pancreatitis npo.ivf, gi consult prn pain meds adviced to quit alcohol Lipase level elevated, CT A/P noted 2. Pancolitis check stool studies including C diff-could not be done as diarrhea resolved IVF GI consult 3. HIV (human immunodeficiency virus infection) resume home meds: Okay to take home medications check CD4 level Disposition-pending clinical improvement and GI recommendation Resuscitation discussion: Discussed with: patient Code status: full code Electronically Signed by Kaitlin Porter MD on 06/26 at 1259 RPT #: [id number] END OF REPORT 2020-07-11 12:56:00-00:00 [facility] ([facility] Hospitalist Progress Note REPORT#:[id number] REPORT STATUS: Signed DATE:07/11/20 TIME:1256 PATIENT: QUETA DOYLE UNIT #: [id number] ROOM/BED: [place] [address] : 84 AGE: 35 SEX: M ATTEND: Bonny Porter MD ADM AUTHOR: Kaitlin Porter MD * ALL edits or amendments must be made on the [employer] document * See Addendum Subjective Chief Complaint: Less nausea, still has abdominal pain Review of Systems Respiratory: Denies: SOB. Cardiovascular: Denies: chest pain. GI: Reports: abdominal pain, nausea. Denies: vomitin g. Objective General VS/I O: Vital Signs: Date Time Temp Pulse Resp B/P B/P Pulse O2 O2 F low FiO2 Mean Ox Delivery Rate 07/11 1054 36.4 72 12 147/99 115.3 99 Room air 07/11 0848 36.8 66 12 149/95 113.1 99 Room air 07/11 0345 36.9 65 18 152/99 116.8 98 Room air 07/10 2305 36.6 57 18 153/96 114.8 100 Room air / 2121 36.8 56 18 171/92 118.7 100 Room air / 2001 52 16 138/87 104 100 06/04 1730 75 16 163/91 115 100 06/04 1443 36.4 86 18 164/94 117 100 Room air 24 hour I O ending at 0700: 06/05 0700 06/04 1900 Intake Total 2100.00 Output Total Balance 2100.00 Intake, IV 2100.00 Output, Emesis Patient 61.8 kg Weight Weight Standing scale Measurement Method PATIENT WEIGHT: Weight (lb): Weight (oz): Weight (kg): 61.800 Physical Exam General appearance: alert, awake Cardiovascular: normal capillary refill, normal heart sounds Respiratory: clear to auscultation, no distress Abdomen: tenderness, normal bowel sounds, soft, no distention Extremities: moves all, normal capillary refill, normal range of motion, no edema Musculoskeletal: normal inspection Neuro/COLLAR SETTER OVERLOCK: alert, oriented X 3 Skin: dry, intact Lymphatics: neck normal Diagnosis, Assessment Plan Free Text DxA P Notes Free text DxA P notes: Diagnosis, Assessment Plan Problem List/A P: 1. Acute pancreatitis npo.ivf, gi consult prn pain meds adviced to quit alcohol Lipase level elevated, CT A/P noted 2. Pancolitis check stool studies including C diff-could not be done as diarrhea resolved IVF GI consult 3. HIV (human immunodeficiency virus infection) resume home meds: Okay to take home medications check CD4 level Disposition-pending clinical improvement and GI recommendation Resuscitation discussion: Discussed with: patient Code status: full code Electronically Signed by Kaitlin Porter MD on 06/26 at 1259 Addendum 1: 07/11/20 1259 by Kaitlin Porter MD Also on IV antibiotics for colitis Electronically Signed by Kaitlin Porter MD on 06/26 at 1259 RPT #: [id number] END OF REPORT 2020-07-10 17:46:00-00:00 [facility] ([facility]) Hospitalist History Physical REPORT#:[id number] REPORT STATUS: Signed DATE:07/10/20 TIME:1745 PATIENT: QUETA DOYLE UNIT #: [id number] [place] [id number] : 84 AGE: 35 SEX: M ATTEND: Bonny Porter MD ADM AUTHOR: Kaitlin Porter MD * ALL edits or amendments must be made on the el [employer]/computer document * History of Present Illness HPI Chief complaint: abd pain, N/V/D HPI: Free Text HPI Notes 35-year-old male with past medical history of HI V and alcohol induced pancreatitis reports ED complaining of e pigastric pain, sharp in nature, which radiates straight through to his back which bega n this morning. He has associated nausea and vomiting. HE HAS HAD DIARR HEA X 4. He said he had been better about his alcohol consumption but that he overindulged last night. Patient with surgical history of cholecystectomy . PAST Medical History HIV Past Surgical History: Reports: . Alcohol Use Alcohol use Drug Use Denies recreational drugs Smoking status:DENIES Allergies Coded Allergies: No Known Allergies (05/26/10) Home Medications Reported Medications PANTOPRAZOLE DR (PROTONIX) 40 MG PO DAILY [SYMTUZA] History Medication/Allergy-Vaccine Hx Allergies: Coded Allergies: No Known Allergies (05/26/10) Review of Systems Constitutional: Denies: fever. Skin: Denies: itching. Eyes: Denies: visual loss/blurred. ENT: Denies: hearing loss. Respiratory: Denies: SOB. Cardiovascular: Denies: chest pain. GI: Denies: nausea, vomiting. : Denies: flank pain. Musculoskeletal: Denies: extremity pain. Heme: Denies: bleeding. Neuro: Denies: focal weakness. Psych: Denies: agitation. Physical Exam VS/I O: Vital Signs Date Temp Pulse Resp B/P B/P Mean Pulse Ox FiO 2 / 36.4 86 18 164/94 117 100 Last Documented: Result Date Time Pulse Ox 100 / 1443 B/P 164/94 06/ 1443 B/P Mean 117 / 1443 O2 Delivery Room air 07/10 1443 Temp 36.4 06/ 1443 Pulse 86 / 1443 Resp 18 07/10 1443 Patient Weight and BMI Weight (kg): 61.800 BMI: 19.5 General appearance: alert, awake Head/Eyes: atraumatic, clear cornea, normal eyel ids/periorb., normocephalic, PERRL Neck: full range of motion, non-tender Cardiovascular: normal capillary refill, normal heart sounds Respiratory: clear to auscultation, no distress Abdomen: tenderness, normal bowel sounds, soft, no distention Extremities: moves all, normal capillary refill, normal range of motion, no edema Musculoskeletal: normal inspection Neuro/COLLAR SETTER OVERLOCK: alert, oriented X 3 Skin: dry, intact Lymphatics: neck normal Psychiatry: normal affect Results Findings/Data: Laboratory Tests: 07/10 1453 Chemistry Sodium (134 - 147 mmol/L) 141 Potassium (3.4 - 5.0 mmol/L) 3.4 Chloride (100 - 108 mmol/L) 102 Carbon Dioxide (21 - 32 mmol/L) 29 Anion Gap (4.0 - 15.0 GAP calc) 10.0 BUN (7 - 18 MG/DL) 9 Creatinine (0.8 - 1.3 MG/DL) 0.8 Glomerular Filtr Rate (>60 estGFR) >=60 max est imate Glucose (70 - 110 MG/DL) 137 H Calcium (8.5 - 10.1 MG/DL) 8.9 Total Bilirubin (0.2 - 1.2 MG/DL) 1.70 H Direct Bilirubin (0.00 - 0.30 MG/DL) 0.50 H Indirect Bilirubin (0.2 - 1.2 MG/DL) 1.20 AST (15 - 37 Unit/L) 61 H ALT (12 - 78 Unit/L) 50 Total Alk Phosphatase (50 - 136 Unit/L) 93 Total Protein (6.4 - 8.2 G/DL) 8.8 H Albumin (3.4 - 5.0 G/DL) 4.3 Lipase (114 - 286 Unit/L) 535 H Hematology WBC (3.5 - 11.0 K/mm3) 8.9 RBC (4.70 - 6.10 M/mm3) 4.16 L Hgb (12.3 - 15.9 G/DL) 13.7 Hct (35.8 - 46.7 %) 37.5 MCV (86.3 - 98.9 Fl) 90.1 MCH (28.9 - 34.4 pg) 32.9 MCHC (32.1 - 34.5 G/DL) 36.5 H RDW (11.5 - 14.5 SD) 13.1 Plt Count (150 - 450 K/mm3) 228 MPV (7.0 - 9.6 fL) 11.40 H Neut % (Auto) (40 - 76 %) 83.0 H Lymph % (Auto) (20.5 - 51.1 %) 10.2 L [place] % (Auto) (1.7 - 9.3 %) 6.3 Eos % (Auto) (0.0 - 6.0 %) 0.0 Baso % (Auto) (0.0 - 2.0 %) 0.3 Neut # (Auto) (1.8 - 7.6 K/mm3) 7.3 Lymph # (Auto) (0.6 - 3.0 K/mm3) 0.9 [place] # (Auto) (0.2 - 1.5 K/mm3) 0.6 Eos # (Auto) (0.0 - 0.4 K/mm3) 0.0 Baso # (Auto) (0.0 - 0.2 K/mm3) 0.0 Abs Immat Gran (auto) (0.00 - 0.03 x10 3/uL) 0. 02 Add Manual Diff (CRITERIA DIFF/SCN) NO Immature Gran % (0.0 - 5.0 %) 0.2 Nucleated RBC % (0.0 - 1.0 /100WBC%) 0.0 Laboratory Tests 07/10/20 1453: [Embedded Image Not Available] Radiology data: Recent Impressions: CAT SCAN - CT ABD PELVIS W/CONT 07/10 1542 Report Impression - Status: SIGNED Entered: 07/10/2020 1636 IMPRESSION: Long segment wall thickening of the entire colon consistent with pancolitis. Mild edema adjacent to the pancreatic head and 2 nd portion of the duodenum, which may be secondary to pancreatitis or duodenitis. Recommend correlation with lipase levels. Hepatic steatosis. Impression By: [email or web address] - Lucy Arora M.D. Diagnosis, Assessment Plan Problem List/A P: 1. Acute pancreatitis npo.ivf, gi consult prn pain meds adviced to quit alcohol Lipase level elevated, CT A/P noted 2. Pancolitis check stool studies including C diff IVF GI consult 3. HIV (human immunodeficiency virus infection) resume home meds check CD4 level Resuscitation discussion: Discussed with: patient Code status: full code Electronically Signed by Kaitlin Porter MD on 05/27 at 1753 RPT #: [id number] END OF REPORT 2020-07-10 14:51:00-00:00 [facility] ([facility]) EMERGENCY PROVIDER REPORT REPORT#:[id number] REPORT STATUS: Signed DATE:07/10/20 TIME:145 PATIENT: QUETA DOYLE UNIT #: [id number] ROOM/BED: : 84 AGE: 35 SEX: M PCP PHYS: No Primar y or Family Physician SERVICE AUTHOR: Hafsa Martienz * ALL edits or amendments must be made on the [employer]/computer document * HPI-Abd Pain M Under 40 General Initial Greet Date/Time 07/10/20 1445 Presentation Chief Complaint Abdominal pain Sudden in Onset? No Free Text HPI Notes Free Text HPI Notes 35-year-old male with past medical history of HI V and alcohol induced pancreatitis reports ED complaining of e pigastric pain, sharp in nature, which radiates straight through to his back which bega n this morning. He has associated nausea and vomiting. He denies any di arrhea or fever. He said he had been better about his alcohol consumption bu t that he overindulged last night. Patient with surgical history of cholecys tectomy. Risk-Abd Pain M Under 40 )( Torsion Risk factors reviewed Review of Systems Focused Review of Systems Constitutional Denies: Chills, Fever. Respiratory Denies: Cough, non-productive, Cough, productive , Shortness of breath. Cardiovascular Denies: Chest pain, Edema. GI Reports: Abdominal pain, Nausea, Vomiting. Male Denies: Dysuria, Flank pain. Musculoskeletal Reports: Back pain. Denies: Extremity pain, Extr emity swelling. Additional Review of Systems Skin Denies: Rash, Swelling. Past Medical History - Adult Stated Complaint ABDOMINAL PAIN, VOMITING Allergies Coded Allergies: No Known Allergies (05/26/10) Home Medications Reported Medications PANTOPRAZOLE DR (PROTONIX) 40 MG PO DAILY [SYMTUZA] Additional Medical History HIV Past Surgical History: Reports: . Alcohol Use Alcohol use Drug Use Denies recreational drugs Smoking status: Smoking status for patients 13 years old or old er: Never Smoker Other Social History [place] resident, Good social support Physical Exam Vital Signs Vital Signs First Documented: Result Date Time Pulse Ox 100 06/ 1443 B/P 164/94 / 1443 B/P Mean 117 06/ 1443 O2 Delivery Room air 07/10 1443 Temp 36.4 / 1443 Pulse 86 / 1443 Resp 18 07/10 1443 Last Documented: Result Date Time Pulse Ox 100 06/ 1443 B/P 164/94 / 1443 B/P Mean 117 06/ 1443 O2 Delivery Room air / 1443 Temp 36.4 / 1443 Pulse 86 / 1443 Resp 18 07/10 1443 Review of Vital Signs Reviewed Focused PE General/Const General/Const Awake, Alert Distress/Hydration Distress moderate (uncomfortable). Eyes Eyes No periorbital redness, No periorbital swe lling Ears/Nose/Throat Ears/Nose/Throat Airway patent, No facial swell ing Mouth Mucous membranes dry. Resp/Chest Respiratory/Chest Breath sounds NL, Breath soun ds = bilat, No respiratory distress, No rales, No rhonchi, No wheezing, No retractions Cardiovascular Cardiovascular Heart rate NL, Regular rhythm, H eart sounds NL, Peripheral circulation NL Abdomen/GI Abdomen/GI Soft, BS normoactive, No distention Text/Dict Notes Epigastric tenderness to palpation. MS Back Back Atraumatic, Non-tender Skin Skin Atraumatic, Color NL, No rash, Warm, Dry, Intact, No swelling Neurologic Neurologic Oriented X3, Speech NL, No motor def icits, Gait NL Interpretation Diagnostics Lab Results Interpretation Results Laboratory Tests 07/10/20 145: [Embedded Image Not Available] Laboratory Tests: 07/10 1452 Chemistry Sodium (134 - 147 mmol/L) 141 Potassium (3.4 - 5.0 mmol/L) 3.4 Chloride (100 - 108 mmol/L) 102 Carbon Dioxide (21 - 32 mmol/L) 29 Anion Gap (4.0 - 15.0 GAP calc) 10.0 BUN (7 - 18 MG/DL) 9 Creatinine (0.8 - 1.3 MG/DL) 0.8 Glomerular Filtr Rate (>60 estGFR) >=60 max est imate Glucose (70 - 110 MG/DL) 137 H Calcium (8.5 - 10.1 MG/DL) 8.9 Total Bilirubin (0.2 - 1.2 MG/DL) 1.70 H Direct Bilirubin (0.00 - 0.30 MG/DL) 0.50 H Indirect Bilirubin (0.2 - 1.2 MG/DL) 1.20 AST (15 - 37 Unit/L) 61 H ALT (12 - 78 Unit/L) 50 Total Alk Phosphatase (50 - 136 Unit/L) 93 Total Protein (6.4 - 8.2 G/DL) 8.8 H Albumin (3.4 - 5.0 G/DL) 4.3 Lipase (114 - 286 Unit/L) 535 H Hematology WBC (3.5 - 11.0 K/mm3) 8.9 RBC (4.70 - 6.10 M/mm3) 4.16 L Hgb (12.3 - 15.9 G/DL) 13.7 Hct (35.8 - 46.7 %) 37.5 MCV (86.3 - 98.9 Fl) 90.1 MCH (28.9 - 34.4 pg) 32.9 MCHC (32.1 - 34.5 G/DL) 36.5 H RDW (11.5 - 14.5 SD) 13.1 Plt Count (150 - 450 K/mm3) 228 MPV (7.0 - 9.6 fL) 11.40 H Neut % (Auto) (40 - 76 %) 83.0 H Lymph % (Auto) (20.5 - 51.1 %) 10.2 L [place] % (Auto) (1.7 - 9.3 %) 6.3 Eos % (Auto) (0.0 - 6.0 %) 0.0 Baso % (Auto) (0.0 - 2.0 %) 0.3 Neut # (Auto) (1.8 - 7.6 K/mm3) 7.3 Lymph # (Auto) (0.6 - 3.0 K/mm3) 0.9 [place] # (Auto) (0.2 - 1.5 K/mm3) 0.6 Eos # (Auto) (0.0 - 0.4 K/mm3) 0.0 Baso # (Auto) (0.0 - 0.2 K/mm3) 0.0 Abs Immat Gran (auto) (0.00 - 0.03 x10 3/uL) 0. 02 Add Manual Diff (CRITERIA DIFF/SCN) NO Immature Gran % (0.0 - 5.0 %) 0.2 Nucleated RBC % (0.0 - 1.0 /100WBC%) 0.0 Microbiology: Date/Time Procedure - Status Source Growth 07/11 1655 MRSA Screen - ORD NASAL Recent Impressions: CAT SCAN - CT ABD PELVIS W/CONT 07/10 1542 Report Impression - Status: SIGNED Entered: 07/10/2020 1636 IMPRESSION: Long segment wall thickening of the entire colon consistent with pancolitis. Mild edema adjacent to the pancreatic head and 2 nd portion of the duodenum, which may be secondary to pancreatitis or duodenitis. Recommend correlation with lipase levels. Hepatic steatosis. Impression By: [email or web address] - Lucy Arora M.D. Lab Imaging Statement Laboratory radiographic studies reviewed and con sidered in the medical decision-making. Re-Evaluation MDM Free Text MDM Notes Free Text MDM Notes Code status while in the ER was full code . Goals of care were discussed in the ED with patient and/or family and hospit alist was updated on admission of code status in ER. )( Re-Evaluation/Progress #1 Time of Re-Eval 1649 )( Re-Eval Status Improved, Pain improved but continues, pt feels nauseated and generally unwell. Offered d/c home with po meds vs admission. Pt feels more comfortable with admission. ED Course Medication(s) Ordered Medication(s) Ordered: Central Nervous System Agents Sig/Sydney Start time Last Medication Dose Route Stop Time Status Admin Hydromorphone HCl 1 MG X1ED STA 07/10 1448 DC 0 07/10 IV 07/10 1449 1459 Diagnostic Agents Sig/Sydney Start time Last Medication Dose Route Stop Time Status Admin Iopamidol 0 .STK-MED ONE 07/10 1531 DC 07/10 .ROUTE 1548 Electrolytic, Caloric, And Parisa Sig/Sydney Start time Last Medication Dose Route Stop Time Status Admin Sodium Chloride 50 ML .STK-MED ONE 07/10 1549 D C 06/04 IV 06 1550 1549 Sodium Chloride 1,000 ML X1ED STA 07/10 1448 DC /04 IV 06/ 1548 1459 Gastrointestinal Drugs Sig/Sydney Start time Last Medication Dose Route Stop Time Status Admin Ondansetron HCl 4 MG X1ED PRN PRN 07/10 1500 DC 07/10 IV 07/11 1459 1459 Patient Discharge Departure Vital Signs/Condition Vital Signs First Documented: Result Date Time Pulse Ox 100 06/ 1443 B/P 164/94 06/04 1443 B/P Mean 117 06/04 1443 O2 Delivery Room air 06/ 1443 Temp 36.4 06/04 1443 Pulse 86 06/04 1443 Resp 18 06/ 1443 Last Documented: Result Date Time Pulse Ox 100 06/ 1443 B/P 164/94 06/04 1443 B/P Mean 117 06/04 1443 O2 Delivery Room air 06/ 1443 Temp 36.4 06/04 1443 Pulse 86 06/04 1443 Resp 18 / 1443 All vital signs available at the time of this en try have been reviewed. Condition Stable Clinical Impression Clinical Impression Primary Impression: Pancreatitis Secondary Impressions: Pancolitis Disposition Decision Admit Admit Physician Name Kaitlin Porter MD Admit Physician Hospitalist Request Time 1656 Request Date 07/10/20 )( Admission Accepts Yes )( Accepted Time 1656 )( Accepted Date 07/10/20 Call Information will see patient, agrees with eval, agrees with plan Discharge/Care Plan Counseled Regarding Diagnosi s, Lab results, Imaging studies, Need for admission Admit Note I have spoken with the patie nt and/or caregivers. I have explained the patient's condition, diagnoses and zenia atment plan based on the information available to me at this time. I have answered the patient's and/ or caregiver's questions and addressed any concerns. The patient and/or careg musa have as good an understanding of the patient 's diagnosis, condition and treatment plan as can be expected at this point. The patient has been stabilized within the capability of the emergency department. The patient wi ll be transported for further care and management or will be moved to an observation or inpatient service. I have communicated with the staff or medical p ractitioner taking over this patient's care. Electronically Signed by Hafsa Martinez on 05/27 at 1658 [facility] #: [id number] END OF REPORT 2020-07-10 14:51:00-00:00 [facility] ([facility]) EMERGENCY PROVIDER REPORT REPORT#:[id number] REPORT STATUS: Signed DATE:07/10/20 TIME:145 PATIENT: QUETA DOYLE UNIT #: [id number] ROOM/BED: [place] [address] : 84 AGE: 35 SEX: M PCP PHYS: No Primar y or Family Physician SERVICE AUTHOR: Hafsa Martinez * ALL edits or amendments must be made on the el [employer]/computer document * Hafsa Martinez 07/10/20 1451: HPI-Abd Pain M Under 40 General Initial Greet Date/Time 07/10/20 1445 Presentation Chief Complaint Abdominal pain Sudden in Onset? No Free Text HPI Notes Free Text HPI Notes 35-year-old male with past medical history of HI V and alcohol induced pancreatitis reports ED complaining of e pigastric pain, sharp in nature, which radiates straight through to his back which bega n this morning. He has associated nausea and vomiting. He denies any di arrhea or fever. He said he had been better about his alcohol consumption bu t that he overindulged last night. Patient with surgical history of cholecys tectomy. Risk-Abd Pain M Under 40 )( Torsion Risk factors reviewed Review of Systems Focused Review of Systems Constitutional Denies: Chills, Fever. Respiratory Denies: Cough, non-productive, Cough, productive , Shortness of breath. Cardiovascular Denies: Chest pain, Edema. GI Reports: Abdominal pain, Nausea, Vomiting. Male Denies: Dysuria, Flank pain. Musculoskeletal Reports: Back pain. Denies: Extremity pain, Extr emity swelling. Additional Review of Systems Skin Denies: Rash, Swelling. Past Medical History - Adult Stated Complaint ABDOMINAL PAIN, VOMITING Allergies Coded Allergies: No Known Allergies (05/26/10) Home Medications Reported Medications PANTOPRAZOLE DR (PROTONIX) 40 MG PO DAILY [SYMTUZA] Additional Medical History HIV Past Surgical History: Reports: . Alcohol Use Alcohol use Drug Use Denies recreational drugs Smoking status: Smoking status for patients 13 years old or old er: Never Smoker Other Social History Local resident, Good social support Physical Exam Vital Signs Vital Signs First Documented: Result Date Time Pulse Ox 100 / 1443 B/P 164/94 / 1443 B/P Mean 117 / 1443 O2 Delivery Room air 07/10 1443 Temp 36.4 06/ 1443 Pulse 86 06/ 1443 Resp 18 07/10 1443 Last Documented: Result Date Time Pulse Ox 100 06/ 1443 B/P 164/94 / 1443 B/P Mean 117 / 1443 O2 Delivery Room air 07/10 1443 Temp 36.4 / 1443 Pulse 86 / 1443 Resp 18 07/10 1443 Review of Vital Signs Reviewed Focused PE General/Const General/Const Awake, Alert Distress/Hydration Distress moderate (uncomfortable). Eyes Eyes No periorbital redness, No periorbital swe lling Ears/Nose/Throat Ears/Nose/Throat Airway patent, No facial swell ing Mouth Mucous membranes dry. Resp/Chest Respiratory/Chest Breath sounds NL, Breath soun ds = bilat, No respiratory distress, No rales, No rhonchi, No wheezing, No retractions Cardiovascular Cardiovascular Heart rate NL, Regular rhythm, H eart sounds NL, Peripheral circulation NL Abdomen/GI Abdomen/GI Soft, BS normoactive, No distention Text/Dict Notes Epigastric tenderness to palpation. MS Back Back Atraumatic, Non-tender Skin Skin Atraumatic, Color NL, No rash, Warm, Dry, Intact, No swelling Neurologic Neurologic Oriented X3, Speech NL, No motor def icits, Gait NL Interpretation Diagnostics Lab Results Interpretation Results Laboratory Tests 07/10/20 1453: [Embedded Image Not Available] Laboratory Tests: 07/10 1452 Chemistry Sodium (134 - 147 mmol/L) 141 Potassium (3.4 - 5.0 mmol/L) 3.4 Chloride (100 - 108 mmol/L) 102 Carbon Dioxide (21 - 32 mmol/L) 29 Anion Gap (4.0 - 15.0 GAP calc) 10.0 BUN (7 - 18 MG/DL) 9 Creatinine (0.8 - 1.3 MG/DL) 0.8 Glomerular Filtr Rate (>60 estGFR) >=60 max est imate Glucose (70 - 110 MG/DL) 137 H Calcium (8.5 - 10.1 MG/DL) 8.9 Total Bilirubin (0.2 - 1.2 MG/DL) 1.70 H Direct Bilirubin (0.00 - 0.30 MG/DL) 0.50 H Indirect Bilirubin (0.2 - 1.2 MG/DL) 1.20 AST (15 - 37 Unit/L) 61 H ALT (12 - 78 Unit/L) 50 Total Alk Phosphatase (50 - 136 Unit/L) 93 Total Protein (6.4 - 8.2 G/DL) 8.8 H Albumin (3.4 - 5.0 G/DL) 4.3 Lipase (114 - 286 Unit/L) 535 H Hematology WBC (3.5 - 11.0 K/mm3) 8.9 RBC (4.70 - 6.10 M/mm3) 4.16 L Hgb (12.3 - 15.9 G/DL) 13.7 Hct (35.8 - 46.7 %) 37.5 MCV (86.3 - 98.9 Fl) 90.1 MCH (28.9 - 34.4 pg) 32.9 MCHC (32.1 - 34.5 G/DL) 36.5 H RDW (11.5 - 14.5 SD) 13.1 Plt Count (150 - 450 K/mm3) 228 MPV (7.0 - 9.6 fL) 11.40 H Neut % (Auto) (40 - 76 %) 83.0 H Lymph % (Auto) (20.5 - 51.1 %) 10.2 L [place] % (Auto) (1.7 - 9.3 %) 6.3 Eos % (Auto) (0.0 - 6.0 %) 0.0 Baso % (Auto) (0.0 - 2.0 %) 0.3 Neut # (Auto) (1.8 - 7.6 K/mm3) 7.3 Lymph # (Auto) (0.6 - 3.0 K/mm3) 0.9 [place] # (Auto) (0.2 - 1.5 K/mm3) 0.6 Eos # (Auto) (0.0 - 0.4 K/mm3) 0.0 Baso # (Auto) (0.0 - 0.2 K/mm3) 0.0 Abs Immat Gran (auto) (0.00 - 0.03 x10 3/uL) 0 .02 Add Manual Diff (CRITERIA DIFF/SCN) NO Immature Gran % (0.0 - 5.0 %) 0.2 Nucleated RBC % (0.0 - 1.0 /100WBC%) 0.0 Recent Impressions: CAT SCAN - CT ABD PELVIS W/CONT 07/10 1542 Report Impression - Status: SIGNED Entered: 07/10/2020 1636 IMPRESSION: Long segment wall thickening of the entire colon consistent with pancolitis. Mild edema adjacent to the pancreatic head and 2 nd portion of the duodenum, which may be secondary to pancreatitis or duodenitis. Recommend correlation with lipase levels. Hepatic steatosis. Impression By: Raghavendra - Lucy Arora M.D. Lab Imaging Statement Laboratory radiographic studies reviewed and con sidered in the medical decision-making. Re-Evaluation MDM Free Text MDM Notes Free Text MDM Notes Code status while in the ER was full code . Goals of care were discussed in the ED with patient and/or family and hospit alist was updated on admission of code status in ER. )( Re-Evaluation/Progress #1 Time of Re-Eval 1650 )( Re-Eval Status Improved, Pain improved but continues, pt feels nauseated and generally unwell. Offered d/c home with po meds vs admission. Pt feels more comfortable with admission. ED Course Medication(s) Ordered Medication(s) Ordered: Central Nervous System Agents Sig/Sydney Start time Last Medication Dose Route Stop Time Status Admin Hydromorphone HCl 1 MG X1ED STA 07/10 1448 DC 0 /04 IV 07/10 1449 1459 Diagnostic Agents Sig/Syd[place] Start time Last Medication Dose Route Stop Time Status Admin Iopamidol 0 .STK-MED ONE 07/10 1531 DC 07/10 .ROUTE 1548 Electrolytic, Caloric, And Parisa Sig/Sydney Start time Last Medication Dose Route Stop Time Status Admin Sodium Chloride 50 ML .STK-MED ONE 07/10 1549 DC / IV 06/ 1550 1549 Sodium Chloride 1,000 ML X1ED STA 07/10 1448 DC / IV 07/10 1548 1459 Gastrointestinal Drugs Sig/Sydney Start time Last Medication Dose Route Stop Time Status Admin Ondansetron HCl 4 MG X1ED PRN PRN 07/10 1500 DC / IV 07/11 1459 1459 Patient Discharge Departure Vital Signs/Condition Vital Signs First Documented: Result Date Time Pulse Ox 100 06/ 1443 B/P 164/94 06/04 1443 B/P Mean 117 06/04 1443 O2 Delivery Room air 06/ 1443 Temp 36.4 06/ 1443 Pulse 86 06/ 1443 Resp 18 07/10 1443 Last Documented: Result Date Time Pulse Ox 100 06/ 1443 B/P 164/94 06/04 1443 B/P Mean 117 06/04 1443 O2 Delivery Room air 06/ 1443 Temp 36.4 06/04 1443 Pulse 86 06/ 1443 Resp 18 07/10 1443 All vital signs available at the time of this en try have been reviewed. Condition Stable Clinical Impression Clinical Impression Primary Impression: Pancreatitis Secondary Impressions: Pancolitis Disposition Decision Admit Admit Physician Name Kaitlin Porter MD Admit Physician Hospitalist Request Time 1656 Request Date 07/10/20 )( Admission Accepts Yes )( Accepted Time 1656 )( Accepted Date 07/10/20 Call Information will see patient, agrees with eval, agrees with plan Discharge/Care Plan Counseled Regarding Diagnosi s, Lab results, Imaging studies, Need for admission Admit Note I have spoken with the patie nt and/or caregivers. I have explained the patient's condition, diagnoses and zenia atment plan based on the information available to me at this time. I have answered the patient's and/ or caregiver's questions and addressed any concerns. The patient and/or careg musa have as good an understanding of the patient 's diagnosis, condition and treatment plan as can be expected at this point. The patient has been stabilized within the capability of the emergency department. The patient wi ll be transported for further care and management or will be moved to an observation or inpatient service. I have communicated with the staff or medical p racaleaer taking over this patient's care. Flakita Deng 07/10/20 7754: Patient Discharge Departure Supervising Physician Note MidLv Saw Pt Alone I have reviewed the PA/ACCOUNTS PAYABLE ACCOUNTANT's note and plan of car e. I was available for consultation as needed at al l times during the patient's visit in the emergency department. I agree with the clinical impression , plan and disposition. Electronically Signed by Hafsa Martinez on 05/27 at 1650 Electronically Signed by Flakita Deng DO on 05/27 at 8292 [facility] #: [id number] END OF REPORT 2019-09-26 10:34:00-00:00 [facility] Hospitalist Discharge Summary REPORT#:[id number] REPORT STATUS: Signed DATE:09/26/19 TIME:1034 PATIENT: QUETA DOYLE UNIT #: [id number] ROOM/BED: [place] [address] : 84 AGE: 34 SEX: M ATTEND: Alexy Carey MD ADM AUTHOR: Sadaf Bates DO * ALL edits or amendments must be made on the el [employer]/computer document * General Information Date of admission: Observation Start Date: Date of admission: 09/22/19 Discharge date: 09/26/19 Admission diagnosis: Acute pancreatitis Abdominal pain Intractable nausea and vomiting Dehydration Elevated LFTs Hx of HIV on HAART Discharge diagnosis: Alcohol induced acute pancreatitis with history of pancreatitis, abdominal CT indicated unremarkable pancreas -GI f/u -Lipase trending down -Continue current PRN medication for pain, -N/V controlled -Follow-up with morning lipase Elevated LFTs, fatty liver Stable, at baseline Leukocytosis, afebrile Likely reactive Continue monitoring Dehydration Continue hydration HIV s/p HAART Stable, Continue monitor DVT prophylaxis with SCDs Hospital course: 34 y/o male with PMHx of HIV on HAART (u nknown CD4), pancreatitis presented to the ED for c/o generalized abdominal pain with n ausea and vomiting today. Pt states pain started this morning with intractabl e nausea and vomiting, he has been unable to tolerate PO. Denies any diarrhea. No fevers/chills, cough or congestion. Pt states he has a hx of pancreatiti s that was attributed to EtOH use, states he drinks frequently but not daily (3-4x/week). Last drink was 8oz of vodka 2 days ago. Denies any hx of EtOH withd fiona. In the ED, labs were notable for lactic acid 3.3, wbc 24.6, lipase 762, AST 146, T bili 2.0. CT abdomen/pelvis showed fatty liver , no acute findings. COVID-19 test was negative. Pt was admitted for further m anagement. After patient admitted, GI was consulted. Suzy boyle is advised to quit drinking alcohol and patient is advis ed to follow-up with GI specialist in the [facility] after being discharged as scheduled. At the time when patient is discharged, his lipase trending down 317 today from 762 upon admission. Patient tolerated diet without new complaints. Med Rec Med Rec Discharge meds: Continue taking these medications: [SYMTUZA] PANTOPRAZOLE DR (PROTONIX) 40 MG TAB.DR 40 MILLIGRAM ORAL DAILY. Comments: TAKE 1 TABLET BY MOUTH ONCE DAILY - SIG Obtaine d From Alycia Objective General VS/I O: Vital Signs: Date Time Temp Pulse Resp B/P B/P Pulse O2 O2 F low FiO2 Mean Ox Delivery Rate 09/25 0717 37.0 69 18 144/89 106.9 99 Room air 09/25 0447 36.9 84 18 134/94 107.2 98 09/25 0040 37.2 71 18 134/92 106.3 99 09/24 2026 37.3 65 18 145/95 112.0 99 Room air 09/24 1534 37.1 66 18 151/97 114.8 100 Room air 09/24 1103 37.0 67 18 150/96 114.1 98 Room air 24 hour I O ending at 0700: 09/25 0700 09/24 1900 Intake Total 1400.00 150.00 Output Total Balance 1400.00 150.00 Intake, IV 1000.00 150.00 Intake, Oral 400 Number Voids 1 aaax3 Trachea midline Lungs clear Heart exam normal S1-S2 Abdominal exam soft, without rebound tenderness Skin exam no rashes Bilateral lower extremity exam pedal pulse prese nt Electronically Signed by Sadaf Bates DO on at 1044 RPT #: [id number] END OF REPORT 2019-09-25 18:06:00-00:00 [facility] ([facility]) Hospitalist Progress Note REPORT#:[id number] REPORT STATUS: Signed DATE:09/25/19 TIME:1805 PATIENT: QUETA DOYLE UNIT #: [id number] ROOM/BED: [place] [address] : 84 AGE: 34 SEX: M ATTEND: Alexy Carey MD ADM AUTHOR: Sadaf Bates DO * ALL edits or amendments must be made on the el [employer]/computer document * Subjective Free Text Subj Notes Free Subj Notes: Patient tolerated diet, has no new complaints, a bdominal pain controlled Objective General VS/I O: Vital Signs: Date Time Temp Pulse Resp B/P B/P Pulse O2 O2 F low FiO2 Mean Ox Delivery Rate 09/24 2025 37.3 65 18 145/95 112.0 99 Room air 09/24 1534 37.1 66 18 151/97 114.8 100 Room air 09/24 1103 37.0 67 18 150/96 114.1 98 Room air 09/24 0716 37.4 69 18 143/93 109.8 99 Room air 09/24 0406 37.2 69 18 150/85 106.9 99 Room air 09/24 0037 37.2 66 18 144/95 111.2 98 Room air 24 hour I O ending at 0700: 09/24 0700 09/23 1900 Intake Total 150.00 2145.00 Output Total Balance 150.00 2145.00 Intake, IV 150.00 825.00 Intake, Oral 1320 Number Voids 4 Patient Weight Weight (lb): Weight (oz): Weight (kg): 63.636 aaax3 Trachea midline Lung exam clear Heart exam normal S1-S2, Abdominal exam soft, bowel sounds present, negat eitan for rebound Skin exam no rash Diagnosis, Assessment Plan Free Text DxA P Notes Free text DxA P notes: Acute pancreatitis with history of chronic ? lawrence creatitis, -GI f/u -Lipase trending down -Continue current PRN medication for pain, -N/V controlled -Follow-up with morning lipase Elevated LFTs, fatty liver Stable, at baseline Leukocytosis, afebrile Likely reactive Continue monitoring Dehydration Continue hydration HIV s/p HAART Stable, Continue monitor DVT prophylaxis with SCDs Electronically Signed by Sadaf Bates DO on at 2220 RPT #: [id number] END OF REPORT 2019-09-25 13:05:00-00:00 [id number] [facility] [address] [place] [id number] PATIENT NAME: QUETA DOYLE ADMIT DATE: 09/22/19 ACCOUNT NO: [id number] ROOM NO: L.S211 AGE: 34 REPORT TYPE: CONSULTATION SEX: M ADMITTING PHYSICIAN: Matthew Carey MD ATTENDING PHYSICIAN: Matthew Carey MD CONSULTATION DATE: CONSULTING PHYSICIAN: Michael Sheldon MD ATTENDING PHYSICIAN: ____. CONSULTING PHYSICIAN: Michael Sheldon MD REASON FOR CONSULTATION: Pancreatitis. HISTORY OF PRESENTING ILLNESS: The patient is a 34-year-old gentleman with history of HIV, on HAART, unknown CD4 count, his tory of chronic pancreatitis secondary to longstanding alcohol abuse, who was in the hospital earlier this year for similar complaints, now present s to the hospital again with abdominal pain, nausea, and vomiting. When I saw him, his symptoms had already significantly improved. He was tolerating clear liquids. He has been drinking vodka as recent as 2 days ago. PAST MEDICAL HISTORY: As above. PAST SURGICAL HISTORY: Nonpertinent to the Pond5e nt issue. SOCIAL HISTORY: Active alcohol abuse. ALLERGIES: NO KNOWN DRUG ALLERGIES. FAMILY HISTORY: Noncontributory. REVIEW OF SYSTEMS: GI as in HPI, otherwise negat eitan. Remainder of 10-point review of system is negative. PHYSICAL EXAMINATION: VITAL SIGNS: Vitals reviewed. Temperature 37 deg rosi centigrade, pulse 67, respiratory rate 18, blood pressure 150/96. HEENT: Head, atraumatic and normocephalic. Pupil s equally reactive. NECK: Supple. CHEST: Clear to auscultation bilaterally. ABDOMEN: Soft, nontender, nondistended. Bowel so unds present. EXTREMITIES: No pedal edema. LABORATORY DATA: Reviewed. His lipase has signif icantly improved already. Hemoglobin ____ adequately. Also, leukocytosis h as become normal. PATIENT NAME: QUETA DOYLE 708 IMPRESSION: A 34-year-old male with hist ory of human immunodeficiency virus on treatment, chronic alcohol a buse, history of chronic pancreatitis, now presents with [id number] pancreatitis symptoms and labs actually are already improved. PLAN: Continue current management. Can advance h is diet. The patient can be discharged from GI point of view. As per the last instructions that were given to him as inpatient, he need s to stop drinking alcohol, otherwise if disease is only going to progress. He can follow up in our or any other GI clinic. We did recommend him to come to the clinic, but he did not show up. No intervention from GI at this point. Dictated By: Michael Sheldon MD WT: CON:L.LORE/DENICE/NTS Conf#: [id number]/DID#: [id number] Authenticated by Michael Sheldon MD On 020 09:43:26 AM at 0943 PATIENT NAME: QUETA DOYLE 708 2019-09-23 08:27:00-00:00 [facility] ([facility]) Hospitalist Progress Note REPORT#:[id number] REPORT STATUS: Signed DATE:09/23/19 TIME:826 PATIENT: QUETA DOYLE UNIT #: [id number] RO[address]BED: [address] : 84 AGE: 34 SEX: M ATTEND: Alexy Carey MD ADM AUTHOR: Petra Recinos NP * ALL edits or amendments must be made on the el [employer]/computer document * Subjective Free Text Subj Notes Free Subj Notes: No overnight events. Patient states his pain is better, denies N/V. Lipase is trending upward. Has history of pancreatitis but has not seen outpatient GI because he had to cancel his appointment due to work. Review of Systems Constitutional: Denies: chills, fever. Skin: Denies: bruising, rash. Eyes: Denies: visual loss/blurred, eye pain. ENT: Denies: nasal congestion, sore throat. Respiratory: Denies: productive cough (sputum), SOB. Cardiovascular: Denies: chest pain, palpitations. GI: Reports: abdominal pain, nausea, vomiting. Denie s: diarrhea. : Denies: dysuria, hematuria. Musculoskeletal: Denies: extremity pain, extremity swelling. Neuro: Denies: dizziness, headache, syncope. Objective General VS/I O: Vital Signs: Date Time Temp Pulse Resp B/P B/P Pulse O2 O2 F low FiO2 Mean Ox Delivery Rate 09/22 1112 98.6 71 17 144/93 109.9 99 09/22 0704 98.2 75 17 129/91 103.6 99 09/22 0432 98.4 72 18 136/89 104.3 99 Room air 09/22 0154 98.6 91 18 151/84 106.2 98 09/22 0134 98.1 92 16 130/72 91 98 Room air 09/22 0028 93 16 137/80 99 98 Room air 09/21 2229 108 18 132/80 97 97 Room air 09/21 2030 111 18 133/81 98 100 Room air 09/21 1831 97.8 126 18 147/74 98 99 Room air 24 hour I O ending at 0700: 09/22 0700 09/21 1900 Intake Total 500.00 Output Total Balance 500.00 Intake, IV 500.00 Patient 63.636 kg Weight Weight Stated/Reported Measurement Method Patient Weight Weight (lb): Weight (oz): Weight (kg): 63.636 Medications: Active Meds + DC'd Last 24 Hrs Sodium Chloride 1,000 ML .Q8H IV Sodium Chloride 1,000 ML BOLUS IV (DC) Acetaminophen 650 MG Q4H PRN PRN PO Docusate Sodium 100 MG Q12H PRN PRN PO Hydrocodone Bitart/Acetaminophen 1 TAB Q4H PRN P RN PO Hydrocodone Bitart/Acetaminophen 1 TAB Q4H PRN P RN PO Ondansetron HCl 4 MG Q4H PRN PRN IV Iopamidol 0 .STK-MED ONE IV (DC) Sodium Chloride 50 ML .STK-MED ONE IV (DC) Ondansetron HCl 4 MG X1ED PRN PRN IV (DC) Ketorolac Tromethamine 30 MG X1ED STA IV (DC) Sodium Chloride 1,000 ML X1ED STA IV (DC) Nutrition status: Clear liquids Physical Exam Head/Eyes: atraumatic, normocephalic ENT: dry mucosal membrane, normal nose Neck: supple/no meningismus, no JVD Cardiovascular: normal capillary refill, normal heart sounds, regular rate rhythm Respiratory: clear to auscultation, symmetric ex pansion, no distress Abdomen: non-tender, soft, no distention Extremities: moves all, no edema Neuro/COLLAR SETTER OVERLOCK: alert, normal speech Results Findings/Data: Laboratory Tests 09/22 09/22 09/21 0600 0025 2128 Chemistry Sodium (134 - 147 mmol/L) 140 Potassium (3.4 - 5.0 mmol/L) 4.0 Chloride (100 - 108 mmol/L) 108 Carbon Dioxide (21 - 32 mmol/L) 24 Anion Gap (4.0 - 15.0 GAP calc) 8.0 BUN (7 - 18 MG/DL) 11 Creatinine (0.8 - 1.3 MG/DL) 0.9 Glomerular Filtr Rate (>60 estGFR) >=60 max est imate Glucose (70 - 110 MG/DL) 104 Lactic Acid (0.4 - 2.0 mmol/L) 1.5 3.3 H Calcium (8.5 - 10.1 MG/DL) 7.9 L Total Bilirubin (0.2 - 1.2 MG/DL) 2.00 H AST (15 - 37 Unit/L) 64 H ALT (12 - 78 Unit/L) 44 Total Alk Phosphatase (50 - 136 Unit/L) 63 Total Protein (6.4 - 8.2 G/DL) 8.0 Albumin (3.4 - 5.0 G/DL) 3.5 Globulin (GM/dL) 4.5 Albumin/Globulin Ratio (1.2 - 2.2 RATIO) 0.8 L Lipase (114 - 286 Unit/L) 914 H 09/21 1907 Chemistry Sodium (134 - 147 mmol/L) 142 Potassium (3.4 - 5.0 mmol/L) 4.2 Chloride (100 - 108 mmol/L) 108 Carbon Dioxide (21 - 32 mmol/L) 19 L Anion Gap (4.0 - 15.0 GAP calc) 15.0 BUN (7 - 18 MG/DL) 16 Creatinine (0.8 - 1.3 MG/DL) 1.3 Glomerular Filtr Rate (>60 estGFR) >=60 max est imate Glucose (70 - 110 MG/DL) 182 H Calcium (8.5 - 10.1 MG/DL) 9.5 Total Bilirubin (0.2 - 1.2 MG/DL) 2.00 H Direct Bilirubin (0.00 - 0.30 MG/DL) 0.70 H Indirect Bilirubin (0.2 - 1.2 MG/DL) 1.30 H AST (15 - 37 Unit/L) 146 H ALT (12 - 78 Unit/L) 64 Total Alk Phosphatase (50 - 136 Unit/L) 85 Troponin I (0.000 - 0.045 NG/ML) < 0.015 Total Protein (6.4 - 8.2 G/DL) 9.6 H Albumin (3.4 - 5.0 G/DL) 4.2 Lipase (114 - 286 Unit/L) 762 H Laboratory Tests 09/22 08 0600 1907 Hematology WBC (3.5 - 11.0 K/mm3) 13.1 H 24.6 H RBC (4.70 - 6.10 M/mm3) 3.74 L 4.56 L Hgb (12.3 - 15.9 G/DL) 11.9 L 14.6 Hct (35.8 - 46.7 %) 32.9 L 40.6 MCV (86.3 - 98.9 Fl) 88.0 89.0 MCH (28.9 - 34.4 pg) 31.8 32.0 MCHC (32.1 - 34.5 G/DL) 36.2 H 36.0 H RDW (11.5 - 14.5 SD) 12.7 13.1 Plt Count (150 - 450 K/mm3) 190 275 MPV (7.0 - 9.6 fL) 10.80 H 10.60 H Neut % (Auto) (40 - 76 %) 82.8 H 92.1 H Lymph % (Auto) (20.5 - 51.1 %) 10.2 L 2.8 L [place] % (Auto) (1.7 - 9.3 %) 6.1 3.2 Eos % (Auto) (0.0 - 6.0 %) 0.0 0.0 Baso % (Auto) (0.0 - 2.0 %) 0.4 0.2 Neut # (Auto) (1.8 - 7.6 K/mm3) 10.9 H 22.7 H Lymph # (Auto) (0.6 - 3.0 K/mm3) 1.3 0.7 [place] # (Auto) (0.2 - 1.5 K/mm3) 0.8 0.8 Eos # (Auto) (0.0 - 0.4 K/mm3) 0.0 0.0 Baso # (Auto) (0.0 - 0.2 K/mm3) 0.1 0.1 Abs Immat Gran (auto) (0.00 - 0.03 x10 3/uL) 0. 06 H 0.42 H Add Manual Diff (CRITERIA DIFF/SCN) NO NO Immature Gran % (0.0 - 5.0 %) 0.5 1.7 Nucleated RBC % (0.0 - 1.0 /100WBC%) 0.0 0.2 Laboratory Tests 09/21 1944 Serology Nasal/Oral COVID-19 PCR (Negative) Negative Laboratory Tests 09/21 1906 Toxicology Urine Opiates Screen (<2000 NG/ML SCcutoff) NEG ATIVE Urine Methadone Screen (<300 NG/ML SCcutoff) NE GATIVE Urine Barbiturates (<200 NG/ML SCcutoff) NEGATI VE Ur Phencyclidine Scrn (<25 NG/ML SCcutoff) NEGA TIVE Ur Amphetamines Screen (<1000 NG/ML SCcutoff) NEGATIVE U Benzodiazepines Scrn (<200 NG/ML SCcutoff) NE GATIVE Urine Cocaine Screen (<300 NG/ML SCcutoff) NEGA TIVE Urine Cannabinoids (<50 NG/ML SCcutoff) NEGATIV E Laboratory Tests 09/21 1906 Urines Urine Color (YEL/STRAW discript) YELLOW Urine Appearance (CLEAR discript) CLEAR Urine pH (5.0 - 7.0 pH UNITS) 5.5 Ur Specific [place] (1.005 - 1.030 SG) >=1.030 H Urine Protein (NEG mg/dL) TRACE H Urine Glucose (UA) (NEG mg/dL) NEGATIVE Urine Ketones (NEG mg/dL) 3+ H Urine Blood (NEG mg/DL) 1+ H Urine Nitrite (NEG SCREEN) NEGATIVE Urine Bilirubin (NEG mg/dL) NEGATIVE Urine Urobilinogen (<2.0 mg/dL) 0.2 Ur Leukocyte Esterase (NEGATIVE Leuk/mcL) NEGAT EITAN Urine RBC (0 - 3 #RBC/HPF) 0-1 Urine WBC (0 - 3 #WBC/HPF) 0-1 Ur Squamous Epith Cells (NONE /HPF) NONE SEEN Urine Bacteria (NONE - TRACE /HPF) NONE SEEN Urine Culture Screen (Culture CHK Criteria) NO, WBC<10 Radiology data: Recent Impressions: RADIOLOGY - XR CHEST 1 V 09/21 1929 Report Impression - Status: SIGNED Entered: 09/22/20191948 IMPRESSION: Lungs are clear. No acute abnormalit y. Impression By: [email or web address] Hai Palmer M.D. CAT SCAN - CT ABD PELVIS W/CONT 09/22 1951 Report Impression - Status: SIGNED Entered: 09/22/20192026 IMPRESSION: 1. Fatty infiltration of liver. 2. Otherwise unremarkable CT scan of abdomen and pelvis. Impression By: [email or web address] Hai Lopez M.D. Results: labs reviewed, vital signs stable, curr ent med profile rev'd Diagnosis, Assessment Plan Problem List/A P: 1. Abdominal pain 2. Intractable nausea and vomiting 3. HIV (human immunodeficiency virus infection) 4. Pancreatitis Consultants: gastroenterology Free Text DxA P Notes Free text DxA P notes: Impression: Acute pancreatitis Abdominal pain Intractable nausea and vomiting Dehydration Elevated LFTs Hx of HIV on HAART Plan Monitor under telemetry Continue IVF hydration, pain and nausea control COVID-[address] abdomen/pelvis showed fatty liver, no acute f indings Low clinical suspicion for acute infectious etio logy as pt without fevers, CT with no acute findings and abdominal exa m benign, will hold off on abx for now Mildly elevated LFTs (AST 146, T bili 2.0) june b e due to EtOH use and fatty liver, monitor LFTs Continue home meds DVT prophylaxis with SCDs 09/22 Acute pancreatitis, Fatty liver, ABD pain, intra ctable N/V -GI consulted -Lipase trending upward 792=>914 -Continue current PRN medication for pain, N/V Elevated LFTs -[id number]=>64, repeat in AM Leukocytosis -WBCs 24.6=>13.1, afebrile Dehydration -Continue IVFs, decrease to 75cc/hr Hx of HIV, HAART -Will need to have current home medication broug ht to hospital, non-formulary DVT prophylaxis-SCDs Code status: Full Code Disposition: Home once cleared by GI Electronically Signed by Petra Recinos NP on 0 09/23/19 at 1548 RPT #: [id number] END OF REPORT 2019-09-23 08:27:00-00:00 [facility] Progress Note REPORT#:[id number] REPORT STATUS: Signed DATE:09/23/19 TIME:826 PATIENT: QUETA DOYLE UNIT #: [id number] [address] : 84 AGE: 34 SEX: M ATTEND: Alexy Carey MD ADM AUTHOR: Petra Recinos NP * ALL edits or amendments must be made on the [employer]/computer document * Petra Recinos NP 09/23/19 0827: Subjective Free Text Subj Notes Free Subj Notes: No overnight events. Patient states his pain is better, denies N/V. Lipase is trending upward. Has history of pancreatitis but has not seen outpatient GI because he had to cancel his appointment due to work. Review of Systems Constitutional: Denies: chills, fever. Skin: Denies: bruising, rash. Eyes: Denies: visual loss/blurred, eye pain. ENT: Denies: nasal congestion, sore throat. Respiratory: Denies: productive cough (sputum), SOB. Cardiovascular: Denies: chest pain, palpitations. GI: Reports: abdominal pain, nausea, vomiting. Denie s: diarrhea. : Denies: dysuria, hematuria. Musculoskeletal: Denies: extremity pain, extremity swelling. Neuro: Denies: dizziness, headache, syncope. Objective General VS/I O: Vital Signs: Date Time Temp Pulse Resp B/P B/P Pulse O2 O2 F low FiO2 Mean Ox Delivery Rate 09/22 1112 98.6 71 17 144/93 109.9 99 09/22 0704 98.2 75 17 129/91 103.6 99 09/22 0432 98.4 72 18 136/89 104.3 99 Room air 09/22 0154 98.6 91 18 151/84 106.2 98 09/22 0134 98.1 92 16 130/72 91 98 Room air 09/22 0028 93 16 137/80 99 98 Room air 09/21 2229 108 18 132/80 97 97 Room air 09/21 2030 111 18 133/81 98 100 Room air 09/21 1831 97.8 126 18 147/74 98 99 Room air 24 hour I O ending at 0700: 09/22 0700 09/21 1900 Intake Total 500.00 Output Total Balance 500.00 Intake, IV 500.00 Patient 63.636 kg Weight Weight Stated/Reported Measurement Method Patient Weight Weight (lb): Weight (oz): Weight (kg): 63.636 Medications: Active Meds + DC'd Last 24 Hrs Sodium Chloride 1,000 ML .Q8H IV Sodium Chloride 1,000 ML BOLUS IV (DC) Acetaminophen 650 MG Q4H PRN PRN PO Docusate Sodium 100 MG Q12H PRN PRN PO Hydrocodone Bitart/Acetaminophen 1 TAB Q4H PRN P RN PO Hydrocodone Bitart/Acetaminophen 1 TAB Q4H PRN P RN PO Ondansetron HCl 4 MG Q4H PRN PRN IV Iopamidol 0 .STK-MED ONE IV (DC) Sodium Chloride 50 ML .STK-MED ONE IV (DC) Ondansetron HCl 4 MG X1ED PRN PRN IV (DC) Ketorolac Tromethamine 30 MG X1ED STA IV (DC) Sodium Chloride 1,000 ML X1ED STA IV (DC) Nutrition status: Clear liquids Physical Exam Head/Eyes: atraumatic, normocephalic ENT: dry mucosal membrane, normal nose Neck: supple/no meningismus, no JVD Cardiovascular: normal capillary refill, normal heart sounds, regular rate rhythm Respiratory: clear to auscultation, symmetric ex pansion, no distress Abdomen: non-tender, soft, no distention Extremities: moves all, no edema Neuro/COLLAR SETTER OVERLOCK: alert, normal speech Results Findings/Data: Laboratory Tests 09/22 09/22 09/21 0600 0025 2128 Chemistry Sodium (134 - 147 mmol/L) 140 Potassium (3.4 - 5.0 mmol/L) 4.0 Chloride (100 - 108 mmol/L) 108 Carbon Dioxide (21 - 32 mmol/L) 24 Anion Gap (4.0 - 15.0 GAP calc) 8.0 BUN (7 - 18 MG/DL) 11 Creatinine (0.8 - 1.3 MG/DL) 0.9 Glomerular Filtr Rate (>60 estGFR) >=60 max es timate Glucose (70 - 110 MG/DL) 104 Lactic Acid (0.4 - 2.0 mmol/L) 1.5 3.3 H Calcium (8.5 - 10.1 MG/DL) 7.9 L Total Bilirubin (0.2 - 1.2 MG/DL) 2.00 H AST (15 - 37 Unit/L) 64 H ALT (12 - 78 Unit/L) 44 Total Alk Phosphatase (50 - 136 Unit/L) 63 Total Protein (6.4 - 8.2 G/DL) 8.0 Albumin (3.4 - 5.0 G/DL) 3.5 Globulin (GM/dL) 4.5 Albumin/Globulin Ratio (1.2 - 2.2 RATIO) 0.8 L Lipase (114 - 286 Unit/L) 914 H 09/21 1907 Chemistry Sodium (134 - 147 mmol/L) 142 Potassium (3.4 - 5.0 mmol/L) 4.2 Chloride (100 - 108 mmol/L) 108 Carbon Dioxide (21 - 32 mmol/L) 19 L Anion Gap (4.0 - 15.0 GAP calc) 15.0 BUN (7 - 18 MG/DL) 16 Creatinine (0.8 - 1.3 MG/DL) 1.3 Glomerular Filtr Rate (>60 estGFR) >=60 max est imate Glucose (70 - 110 MG/DL) 182 H Calcium (8.5 - 10.1 MG/DL) 9.5 Total Bilirubin (0.2 - 1.2 MG/DL) 2.00 H Direct Bilirubin (0.00 - 0.30 MG/DL) 0.70 H Indirect Bilirubin (0.2 - 1.2 MG/DL) 1.30 H AST (15 - 37 Unit/L) 146 H ALT (12 - 78 Unit/L) 64 Total Alk Phosphatase (50 - 136 Unit/L) 85 Troponin I (0.000 - 0.045 NG/ML) < 0.015 Total Protein (6.4 - 8.2 G/DL) 9.6 H Albumin (3.4 - 5.0 G/DL) 4.2 Lipase (114 - 286 Unit/L) 762 H Laboratory Tests 09/22 09/21 0600 1907 Hematology WBC (3.5 - 11.0 K/mm3) 13.1 H 24.6 H RBC (4.70 - 6.10 M/mm3) 3.74 L 4.56 L Hgb (12.3 - 15.9 G/DL) 11.9 L 14.6 Hct (35.8 - 46.7 %) 32.9 L 40.6 MCV (86.3 - 98.9 Fl) 88.0 89.0 MCH (28.9 - 34.4 pg) 31.8 32.0 MCHC (32.1 - 34.5 G/DL) 36.2 H 36.0 H RDW (11.5 - 14.5 SD) 12.7 13.1 Plt Count (150 - 450 K/mm3) 190 275 MPV (7.0 - 9.6 fL) 10.80 H 10.60 H Neut % (Auto) (40 - 76 %) 82.8 H 92.1 H Lymph % (Auto) (20.5 - 51.1 %) 10.2 L 2.8 L [place] % (Auto) (1.7 - 9.3 %) 6.1 3.2 Eos % (Auto) (0.0 - 6.0 %) 0.0 0.0 Baso % (Auto) (0.0 - 2.0 %) 0.4 0.2 Neut # (Auto) (1.8 - 7.6 K/mm3) 10.9 H 22.7 H Lymph # (Auto) (0.6 - 3.0 K/mm3) 1.3 0.7 [place] # (Auto) (0.2 - 1.5 K/mm3) 0.8 0.8 Eos # (Auto) (0.0 - 0.4 K/mm3) 0.0 0.0 Baso # (Auto) (0.0 - 0.2 K/mm3) 0.1 0.1 Abs Immat Gran (auto) (0.00 - 0.03 x10 3/uL) 0. 06 H 0.42 H Add Manual Diff (CRITERIA DIFF/SCN) NO NO Immature Gran % (0.0 - 5.0 %) 0.5 1.7 Nucleated RBC % (0.0 - 1.0 /100WBC%) 0.0 0.2 Laboratory Tests 09/21 1944 Serology Nasal/Oral COVID-19 PCR (Negative) Negative Laboratory Tests 09/21 1906 Toxicology Urine Opiates Screen (<2000 NG/ML SCcutoff) NEG ATIVE Urine Methadone Screen (<300 NG/ML SCcutoff) NE GATIVE Urine Barbiturates (<200 NG/ML SCcutoff) NEGATI VE Ur Phencyclidine Scrn (<25 NG/ML SCcutoff) NEGA TIVE Ur Amphetamines Screen (<1000 NG/ML SCcutoff) N EGATIVE U Benzodiazepines Scrn (<200 NG/ML SCcutoff) NE GATIVE Urine Cocaine Screen (<300 NG/ML SCcutoff) NEGA TIVE Urine Cannabinoids (<50 NG/ML SCcutoff) NEGATIV E Laboratory Tests 09/21 1906 Urines Urine Color (YEL/STRAW discript) YELLOW Urine Appearance (CLEAR discript) CLEAR Urine pH (5.0 - 7.0 pH UNITS) 5.5 Ur Specific [place] (1.005 - 1.030 SG) >=1.030 H Urine Protein (NEG mg/dL) TRACE H Urine Glucose (UA) (NEG mg/dL) NEGATIVE Urine Ketones (NEG mg/dL) 3+ H Urine Blood (NEG mg/DL) 1+ H Urine Nitrite (NEG SCREEN) NEGATIVE Urine Bilirubin (NEG mg/dL) NEGATIVE Urine Urobilinogen (<2.0 mg/dL) 0.2 Ur Leukocyte Esterase (NEGATIVE Leuk/mcL) NEGAT EITAN Urine RBC (0 - 3 #RBC/HPF) 0-1 Urine WBC (0 - 3 #WBC/HPF) 0-1 Ur Squamous Epith Cells (NONE /HPF) NONE SEEN Urine Bacteria (NONE - TRACE /HPF) NONE SEEN Urine Culture Screen (Culture CHK Criteria) NO, WBC<10 Radiology data: Recent Impressions: RADIOLOGY - XR CHEST 1 V 09/21 1929 Report Impression - Status: SIGNED Entered: 09/22/20191948 IMPRESSION: Lungs are clear. No acute abnormalit y. Impression By: [email or web address] Hai Palmer M.D. CAT SCAN - CT ABD PELVIS W/CONT 09/22 1951 Report Impression - Status: SIGNED Entered: 09/22/20192026 IMPRESSION: 1. Fatty infiltration of liver. 2. Otherwise unremarkable CT scan of abdomen and pelvis. Impression By: Darin Lopez M.D. Results: labs reviewed, vital signs stable, curr ent med profile rev'd Diagnosis, Assessment Plan Problem List/A P: 1. Abdominal pain 2. Intractable nausea and vomiting 3. HIV (human immunodeficiency virus infection) 4. Pancreatitis Consultants: gastroenterology Free Text DxA P Notes Free text DxA P notes: Impression: Acute pancreatitis Abdominal pain Intractable nausea and vomiting Dehydration Elevated LFTs Hx of HIV on HAART Plan Monitor under telemetry Continue IVF hydration, pain and nausea control COVID-[address] abdomen/pelvis showed fatty liver, no acute f indings Low clinical suspicion for acute infectious etio logy as pt without fevers, CT with no acute findings and abdominal exa m benign, will hold off on abx for now Mildly elevated LFTs (AST 146, T bili 2.0) june e due to EtOH use and fatty liver, monitor LFTs Continue home meds DVT prophylaxis with SCDs 09/22 Acute pancreatitis, Fatty liver, ABD pain, intra ctable N/V -GI consulted -Lipase trending upward 792=>914 -Continue current PRN medication for pain, N/V Elevated LFTs -[id number]=>64, repeat in AM Leukocytosis -WBCs 24.6=>13.1, afebrile Dehydration -Continue IVFs, decrease to 75cc/hr Hx of HIV, HAART -Will need to have current home medication broug ht to hospital, non-formulary DVT prophylaxis-SCDs Code status: Full Code Disposition: Home once cleared by GI Electronically Signed by Petra Recinos NP on 0 09/23/19 at 1548 Electronically Signed by Kaitlin Porter MD on 09/06 08/25 at 1709 RPT #: [id number] END OF REPORT 2019-09-22 22:48:00-00:00 [facility] ([facility]) Hospitalist History Physical REPORT#:[id number] REPORT STATUS: Signed DATE:09/22/19 TIME:2247 PATIENT: QUETA DOYLE UNIT #: [id number] ROOM/BED: [place] [address] : 84 AGE: 34 SEX: M ATTEND: Alexy Carey MD ADM AUTHOR: Anabela Ochoa * ALL edits or amendments must be made on the el [employer]/computer document * History of Present Illness HPI Chief complaint: abdominal pain, N/V Free Text HPI Notes Free Text HPI Notes: 34 y/o male with PMHx of HIV on HAART (u nknown CD4), pancreatitis presented to the ED for c/o generalized abdominal pain with n ausea and vomiting today. Pt states pain started this morning with intractabl e nausea and vomiting, he has been unable to tolerate PO. Denies any diarrhea. No fevers/chills, cough or congestion. Pt states he has a hx of pancreatiti s that was attributed to EtOH use, states he drinks frequently but not daily (3-4x/week). Last drink was 8oz of vodka 2 days ago. Denies any hx of EtOH withd fiona. In the ED, labs were notable for lactic acid 3.3, wbc 24.6, lipase 762, AST 146, T bili 2.0. CT abdomen/pelvis showed fatty liver , no acute findings. COVID-19 test was negative. Pt was admitted for further m anagement. History Past medical history: Reports: HIV/AIDS. Additional medical history: pancreatitis Alcohol use: Alcohol use Smoking status for patients 13 years old or olde r: Never Smoker Other social history: Local resident, Good socia l support Medication/Allergy-Vaccine Hx Home Medications: EFAVIRENZ/EMTRICITAB/TENOFO 600/200/300 MG (ATRI CAMERON) 1 TAB PO BEDTIME HYDROcodone/APAP (NORCO 10/325) 1 TAB PO Q4H PRN PRN PAIN PANTOPRAZOLE DR (PROTONIX) 40 MG PO DAILY Allergies: Coded Allergies: No Known Allergies (05/26/10) Review of Systems Constitutional: Denies: chills, fever. Skin: Denies: bruising, rash. Eyes: Denies: visual loss/blurred, eye pain. ENT: Denies: nasal congestion, sore throat. Respiratory: Denies: productive cough (sputum), SOB. Cardiovascular: Denies: chest pain, palpitations. GI: Reports: abdominal pain, nausea, vomiting. Denie s: diarrhea. : Denies: dysuria, hematuria. Musculoskeletal: Denies: extremity pain, extremity swelling. Neuro: Denies: dizziness, headache, syncope. Objective General VS/I O: Vital Signs: Date Time Temp Pulse Resp B/P B/P Pulse O2 O2 F low FiO2 Mean Ox Delivery Rate 09/22 0028 93 16 137/80 99 98 Room air 09/21 2229 108 18 132/80 97 97 Room air 09/21 2030 111 18 133/81 98 100 Room air 09/21 1831 97.8 126 18 147/74 98 99 Room air 24 hour I O ending at 0700: 09/22 0700 09/21 1900 Intake Total Output Total Balance Patient 63.636 kg Weight Weight Stated/Reported Measurement Method Patient Weight Weight (lb): Weight (oz): Weight (kg): 63.636 Physical Exam General appearance: alert, awake, no acute distr ess Head/Eyes: atraumatic, normocephalic ENT: dry mucosal membrane, normal nose Neck: supple/no meningismus, no JVD Cardiovascular: normal capillary refill, normal heart sounds, regular rate rhythm Respiratory: clear to auscultation, symmetric ex pansion, no distress Abdomen: non-tender, soft, no distention Extremities: moves all, no edema Neuro/COLLAR SETTER OVERLOCK: alert, normal speech Results Findings/Data: Laboratory Tests 09/21 Chemistry Sodium (134 - 147 mmol/L) 142 Potassium (3.4 - 5.0 mmol/L) 4.2 Chloride (100 - 108 mmol/L) 108 Carbon Dioxide (21 - 32 mmol/L) 19 L Anion Gap (4.0 - 15.0 GAP calc) 15.0 BUN (7 - 18 MG/DL) 16 Creatinine (0.8 - 1.3 MG/DL) 1.3 Glomerular Filtr Rate (>60 estGFR) >=60 max est imate Glucose (70 - 110 MG/DL) 182 H Lactic Acid (0.4 - 2.0 mmol/L) 3.3 H Calcium (8.5 - 10.1 MG/DL) 9.5 Total Bilirubin (0.2 - 1.2 MG/DL) 2.00 H Direct Bilirubin (0.00 - 0.30 MG/DL) 0.70 H Indirect Bilirubin (0.2 - 1.2 MG/DL) 1.30 H AST (15 - 37 Unit/L) 146 H ALT (12 - 78 Unit/L) 64 Total Alk Phosphatase (50 - 136 Unit/L) 85 Troponin I (0.000 - 0.045 NG/ML) < 0.015 Total Protein (6.4 - 8.2 G/DL) 9.6 H Albumin (3.4 - 5.0 G/DL) 4.2 Lipase (114 - 286 Unit/L) 762 H Laboratory Tests 09/21 1907 Hematology WBC (3.5 - 11.0 K/mm3) 24.6 H RBC (4.70 - 6.10 M/mm3) 4.56 L Hgb (12.3 - 15.9 G/DL) 14.6 Hct (35.8 - 46.7 %) 40.6 MCV (86.3 - 98.9 Fl) 89.0 MCH (28.9 - 34.4 pg) 32.0 MCHC (32.1 - 34.5 G/DL) 36.0 H RDW (11.5 - 14.5 SD) 13.1 Plt Count (150 - 450 K/mm3) 275 MPV (7.0 - 9.6 fL) 10.60 H Neut % (Auto) (40 - 76 %) 92.1 H Lymph % (Auto) (20.5 - 51.1 %) 2.8 L [place] % (Auto) (1.7 - 9.3 %) 3.2 Eos % (Auto) (0.0 - 6.0 %) 0.0 Baso % (Auto) (0.0 - 2.0 %) 0.2 Neut # (Auto) (1.8 - 7.6 K/mm3) 22.7 H Lymph # (Auto) (0.6 - 3.0 K/mm3) 0.7 [place] # (Auto) (0.2 - 1.5 K/mm3) 0.8 Eos # (Auto) (0.0 - 0.4 K/mm3) 0.0 Baso # (Auto) (0.0 - 0.2 K/mm3) 0.1 Abs Immat Gran (auto) (0.00 - 0.03 x10 3/uL) 0. 42 H Add Manual Diff (CRITERIA DIFF/SCN) NO Immature Gran % (0.0 - 5.0 %) 1.7 Nucleated RBC % (0.0 - 1.0 /100WBC%) 0.2 Laboratory Tests 09/21 1944 Serology Nasal/Oral COVID-19 PCR (Negative) Negative Laboratory Tests 09/21 1906 Toxicology Urine Opiates Screen (<2000 NG/ML SCcutoff) NEG ATIVE Urine Methadone Screen (<300 NG/ML SCcutoff) NE GATIVE Urine Barbiturates (<200 NG/ML SCcutoff) NEGATI VE Ur Phencyclidine Scrn (<25 NG/ML SCcutoff) NEGA TIVE Ur Amphetamines Screen (<1000 NG/ML SCcutoff) N EGATIVE U Benzodiazepines Scrn (<200 NG/ML SCcutoff) N EGATIVE Urine Cocaine Screen (<300 NG/ML SCcutoff) NEGA TIVE Urine Cannabinoids (<50 NG/ML SCcutoff) NEGATIV E Laboratory Tests 09/21 1906 Urines Urine Color (YEL/STRAW discript) YELLOW Urine Appearance (CLEAR discript) CLEAR Urine pH (5.0 - 7.0 pH UNITS) 5.5 Ur Specific [place] (1.005 - 1.030 SG) >=1.030 H Urine Protein (NEG mg/dL) TRACE H Urine Glucose (UA) (NEG mg/dL) NEGATIVE Urine Ketones (NEG mg/dL) 3+ H Urine Blood (NEG mg/DL) 1+ H Urine Nitrite (NEG SCREEN) NEGATIVE Urine Bilirubin (NEG mg/dL) NEGATIVE Urine Urobilinogen (<2.0 mg/dL) 0.2 Ur Leukocyte Esterase (NEGATIVE Leuk/mcL) NEGAT EITAN Urine RBC (0 - 3 #RBC/HPF) 0-1 Urine WBC (0 - 3 #WBC/HPF) 0-1 Ur Squamous Epith Cells (NONE /HPF) NONE SEEN Urine Bacteria (NONE - TRACE /HPF) NONE SEEN Urine Culture Screen (Culture CHK Criteria) NO, WBC<10 Radiology data: Recent Impressions: RADIOLOGY - XR CHEST 1 V 09/21 1929 Report Impression - Status: SIGNED Entered: 09/22/20191948 IMPRESSION: Lungs are clear. No acute abnormalit y. Impression By: [email or web address] Hai Palmer M.D. CAT SCAN - CT ABD PELVIS W/CONT 09/22 1951 Report Impression - Status: SIGNED Entered: 09/22/20192026 IMPRESSION: 1. Fatty infiltration of liver. 2. Otherwise unremarkable CT scan of abdomen and pelvis. Impression By: Darin Lopez M.D. Diagnosis, Assessment Plan Problem List/A P: 1. Abdominal pain 2. Intractable nausea and vomiting 3. HIV (human immunodeficiency virus infection) 4. Pancreatitis Free Text DxA P Notes Free text DxA P notes: Impression: Acute pancreatitis Abdominal pain Intractable nausea and vomiting Dehydration Elevated LFTs Hx of HIV on HAART Plan Monitor under telemetry Continue IVF hydration, pain and nausea control COVID-[address] abdomen/pelvis showed fatty liver, no acute f indings Low clinical suspicion for acute infectious etio logy as pt without fevers, CT with no acute findings and abdominal exa m benign, will hold off on abx for now Mildly elevated LFTs (AST 146, T bili 2.0) june e due to EtOH use and fatty liver, monitor LFTs Continue home meds DVT prophylaxis with SCDs at 0132 RPT #: [id number] END OF REPORT 2019-09-22 22:48:00-00:00 [facility] ([facility]) Hospitalist History Physical REPORT#:[id number] REPORT STATUS: Signed DATE:09/22/19 TIME:2247 PATIENT: QUETA DOYLE UNIT #: [id number] ROOM/BED: [place] [address] : [birth year] AGE: 34 SEX: M ATTEND: Alexy Carey MD ADM AUTHOR: Anabela Ochoa * ALL edits or amendments must be made on the el [employer]/computer document * Anabela Ochoa 09/22/192247: History of Present Illness HPI Chief complaint: abdominal pain, N/V Free Text HPI Notes Free Text HPI Notes: 34 y/o male with PMHx of HIV on HAART (u nknown CD4), pancreatitis presented to the ED for c/o generalized abdominal pain with n ausea and vomiting today. Pt states pain started this morning with intractabl e nausea and vomiting, he has been unable to tolerate PO. Denies any diarrhea. No fevers/chills, cough or congestion. Pt states he has a hx of pancreatiti s that was attributed to EtOH use, states he drinks frequently but not daily (3-4x/week). Last drink was 8oz of vodka 2 days ago. Denies any hx of EtOH withd fiona. In the ED, labs were notable for lactic acid 3.3, wbc 24.6, lipase 762, AST 146, T bili 2.0. CT abdomen/pelvis showed fatty liver , no acute findings. COVID-19 test was negative. Pt was admitted for further m anagement. History Past medical history: Reports: HIV/AIDS. Additional medical history: pancreatitis Alcohol use: Alcohol use Smoking status for patients 13 years old or olde r: Never Smoker Other social history: [place] resident, [employer] Medication/Allergy-Vaccine Hx Allergies: Coded Allergies: No Known Allergies (05/26/10) Review of Systems Constitutional: Denies: chills, fever. Skin: Denies: bruising, rash. Eyes: Denies: visual loss/blurred, eye pain. ENT: Denies: nasal congestion, sore throat. Respiratory: Denies: productive cough (sputum), SOB. Cardiovascular: Denies: chest pain, palpitations. GI: Reports: abdominal pain, nausea, vomiting. Denie s: diarrhea. : Denies: dysuria, hematuria. Musculoskeletal: Denies: extremity pain, extremity swelling. Neuro: Denies: dizziness, headache, syncope. Objective General VS/I O: Vital Signs: Date Time Temp Pulse Resp B/P B/P Pulse O2 O2 Flow FiO2 Mean Ox Delivery Rate 09/22 0028 93 16 137/80 99 98 Room air 09/21 2229 108 18 132/80 97 97 Room air 09/21 2030 111 18 133/81 98 100 Room air 09/21 1831 97.8 126 18 147/74 98 99 Room air 24 hour I O ending at 0700: 09/22 0700 09/21 1900 Intake Total Output Total Balance Patient 63.636 kg Weight Weight Stated/Reported Measurement Method Patient Weight Weight (lb): Weight (oz): Weight (kg): 63.636 Physical Exam General appearance: alert, awake, no acute distr ess Head/Eyes: atraumatic, normocephalic ENT: dry mucosal membrane, normal nose Neck: supple/no meningismus, no JVD Cardiovascular: normal capillary refill, normal heart sounds, regular rate rhythm Respiratory: clear to auscultation, symmetric ex pansion, no distress Abdomen: non-tender, soft, no distention Extremities: moves all, no edema Neuro/[employer]: alert, normal speech Results Findings/Data: Laboratory Tests 09/217 Chemistry Sodium (134 - 147 mmol/L) 142 Potassium (3.4 - 5.0 mmol/L) 4.2 Chloride (100 - 108 mmol/L) 108 Carbon Dioxide (21 - 32 mmol/L) 19 L Anion Gap (4.0 - 15.0 GAP calc) 15.0 BUN (7 - 18 MG/DL) 16 Creatinine (0.8 - 1.3 MG/DL) 1.3 Glomerular Filtr Rate (>60 estGFR) >=60 max es timate Glucose (70 - 110 MG/DL) 182 H Lactic Acid (0.4 - 2.0 mmol/L) 3.3 H Calcium (8.5 - 10.1 MG/DL) 9.5 Total Bilirubin (0.2 - 1.2 MG/DL) 2.00 H Direct Bilirubin (0.00 - 0.30 MG/DL) 0.70 H Indirect Bilirubin (0.2 - 1.2 MG/DL) 1.30 H AST (15 - 37 Unit/L) 146 H ALT (12 - 78 Unit/L) 64 Total Alk Phosphatase (50 - 136 Unit/L) 85 Troponin I (0.000 - 0.045 NG/ML) < 0.015 Total Protein (6.4 - 8.2 G/DL) 9.6 H Albumin (3.4 - 5.0 G/DL) 4.2 Lipase (114 - 286 Unit/L) 762 H Laboratory Tests 09/21 1906 Hematology WBC (3.5 - 11.0 K/mm3) 24.6 H RBC (4.70 - 6.10 M/mm3) 4.56 L Hgb (12.3 - 15.9 G/DL) 14.6 Hct (35.8 - 46.7 %) 40.6 MCV (86.3 - 98.9 Fl) 89.0 MCH (28.9 - 34.4 pg) 32.0 MCHC (32.1 - 34.5 G/DL) 36.0 H RDW (11.5 - 14.5 SD) 13.1 Plt Count (150 - 450 K/mm3) 275 MPV (7.0 - 9.6 fL) 10.60 H Neut % (Auto) (40 - 76 %) 92.1 H Lymph % (Auto) (20.5 - 51.1 %) 2.8 L [place] % (Auto) (1.7 - 9.3 %) 3.2 Eos % (Auto) (0.0 - 6.0 %) 0.0 Baso % (Auto) (0.0 - 2.0 %) 0.2 Neut # (Auto) (1.8 - 7.6 K/mm3) 22.7 H Lymph # (Auto) (0.6 - 3.0 K/mm3) 0.7 [place] # (Auto) (0.2 - 1.5 K/mm3) 0.8 Eos # (Auto) (0.0 - 0.4 K/mm3) 0.0 Baso # (Auto) (0.0 - 0.2 K/mm3) 0.1 Abs Immat Gran (auto) (0.00 - 0.03 x10 3/uL) 0. 42 H Add Manual Diff (CRITERIA DIFF/SCN) NO Immature Gran % (0.0 - 5.0 %) 1.7 Nucleated RBC % (0.0 - 1.0 /100WBC%) 0.2 Laboratory Tests 09/21 1944 Serology Nasal/Oral COVID-19 PCR (Negative) Negative Laboratory Tests 09/21 1906 Toxicology Urine Opiates Screen (<2000 NG/ML SCcutoff) NEG ATIVE Urine Methadone Screen (<300 NG/ML SCcutoff) NE GATIVE Urine Barbiturates (<200 NG/ML SCcutoff) NEGATI VE Ur Phencyclidine Scrn (<25 NG/ML SCcutoff) NEGA TIVE Ur Amphetamines Screen (<1000 NG/ML SCcutoff) N EGATIVE U Benzodiazepines Scrn (<200 NG/ML SCcutoff) NE GATIVE Urine Cocaine Screen (<300 NG/ML SCcutoff) NEGA TIVE Urine Cannabinoids (<50 NG/ML SCcutoff) NEGATIV E Laboratory Tests 09/21 1906 Urines Urine Color (YEL/STRAW discript) YELLOW Urine Appearance (CLEAR discript) CLEAR Urine pH (5.0 - 7.0 pH UNITS) 5.5 Ur Specific [place] (1.005 - 1.030 SG) >=1.030 H Urine Protein (NEG mg/dL) TRACE H Urine Glucose (UA) (NEG mg/dL) NEGATIVE Urine Ketones (NEG mg/dL) 3+ H Urine Blood (NEG mg/DL) 1+ H Urine Nitrite (NEG SCREEN) NEGATIVE Urine Bilirubin (NEG mg/dL) NEGATIVE Urine Urobilinogen (<2.0 mg/dL) 0.2 Ur Leukocyte Esterase (NEGATIVE Leuk/mcL) NEGAT EITAN Urine RBC (0 - 3 #RBC/HPF) 0-1 Urine WBC (0 - 3 #WBC/HPF) 0-1 Ur Squamous Epith Cells (NONE /HPF) NONE SEEN Urine Bacteria (NONE - TRACE /HPF) NONE SEEN Urine Culture Screen (Culture CHK Criteria) NO, WBC<10 Radiology data: Recent Impressions: RADIOLOGY - XR CHEST 1 V 09/21 1929 Report Impression - Status: SIGNED Entered: 09/22/20191948 IMPRESSION: Lungs are clear. No acute abnormalit y. Impression By: [email or web address] Hai Palmer M.D. CAT SCAN - CT ABD PELVIS W/CONT 09/22 1951 Report Impression - Status: SIGNED Entered: 09/22/20192026 IMPRESSION: 1. Fatty infiltration of liver. 2. Otherwise unremarkable CT scan of abdomen and pelvis. Impression By: [email or web address] Hai Lopez M.D. Diagnosis, Assessment Plan Problem List/A P: 1. Abdominal pain 2. Intractable nausea and vomiting 3. HIV (human immunodeficiency virus infection) 4. Pancreatitis Free Text DxA P Notes Free text DxA P notes: Impression: Acute pancreatitis Abdominal pain Intractable nausea and vomiting Dehydration Elevated LFTs Hx of HIV on HAART Plan Monitor under telemetry Continue IVF hydration, pain and nausea control COVID-[address] abdomen/pelvis showed fatty liver, no acute f indings Low clinical suspicion for acute infectious etio logy as pt without fevers, CT with no acute findings and abdominal exa m benign, will hold off on abx for now Mildly elevated LFTs (AST 146, T bili 2.0) may b e due to EtOH use and fatty liver, monitor LFTs Continue home meds DVT prophylaxis with SCDs Matthew Carey 09/27/192144: History Medication/Allergy-Vaccine Hx Home Medications: PANTOPRAZOLE DR (PROTONIX) 40 MG PO DAILY [SYMTUZA] Discontinued Medications EFAVIRENZ/EMTRICITAB/TENOFO 600/200/300 MG (ATRI CAMERON) 1 TAB PO BEDTIME Discontinued reason: Changed since prior admit HYDROcodone/APAP (NORCO 10/325) 1 TAB PO Q4H PRN PRN PAIN Discontinued reason: Changed since prior admit PANTOPRAZOLE DR (PROTONIX) 40 MG PO DAILY Discontinued reason: Changed since prior admit at 0132 at 2145 RPT #: [id number] END OF REPORT 2019-09-22 20:11:00-00:00 [facility] ([facility]) EMERGENCY PROVIDER REPORT REPORT#:[id number] REPORT STATUS: Signed DATE:09/22/19 TIME:2010 PATIENT: QUETA DOYLE UNIT #: [id number] [facility] AGE: 34 SEX: M PCP PHYS: No Primar y or Family Physician SERVICE AUTHOR: Dunia Valles * ALL edits or amendments must be made on the el [employer]/computer document * Dunia Valles 09/22/19 2011: HPI-Abd Pain M Under 40 General Confirmed Patient Yes Patient Type New patient Initial Greet Date/Time 09/22/19 1831 Presentation Chief Complaint Abdominal pain Hx Obtained From Patient Sudden in Onset? Yes Onset Occurred Today Symptom Duration Waxes and wanes Caused by No trauma by history Location Diffuse Quality Aching, Painful Radiation Does not radiate. No: Back, Flank R, Flank L, Fl ank bilateral, Abdomen upper, Abdomen lower, Epigastric, RUQ, LUQ, RLQ , LLQ, Pelvis, Suprapubic, Inguinal R, Inguinal L, Inguinal bilat. Migration/Movement None Severity: Onset Moderate Severity: Current Moderate Associated with Reports: Nausea, Vomiting. Associated Other Pt denies other symptoms Context Immunization Status General All up to date Free Text HPI Notes Free Text HPI Notes 34-year-old male with past m edical history of HIV, pancreatitis presents to the for abdominal pain nausea vomiting th at began today. Patient states pain is 8 out of 10 in nature. Denies taking any medication for pain. Denies any fever or chills. Denies any other symptoms or complain ts. Patient denies any infectious respiratory sympto ms, fevers or chills, or any known contact with any known patient with COVID- 19. Risk-Abd Pain M Under 40 )( Torsion Risk factors reviewed, No risk factor s Review of Systems ROS Statements All systems rev neg except as marked. Complete sys rev neg except as marked. Basic Review of Systems Basic ROS EYES: No redness, ENT: No sore throat, HEM: No bleeding/bruising, SKIN : No rash, NEURO: No change MS, NEURO: No focal deficit, PSYCH: NL thought content Focused Review of Systems Constitutional Denies: Chills, Fatigue, Fever, Lethargy, Malais e, Recent wt loss, Weakness - generalized. Respiratory Denies: Cough, non-productive, Cough, productive , Dyspnea on exertion, Hemoptysis, Parox nocturnal dyspnea, Pleuritic p ain, Shortness of breath, Wheezing. Cardiovascular Denies: Chest pain, Dyspnea on exertion, Edema, Orthopnea, Palpitations, Parox nocturnal dyspnea, Syncope. GI Reports: Abdominal pain, Nausea, Vomiting. Male Denies: Dysuria, Flank pain, Hematuria, Incontinence, Nocturia, Penile discharge , Penile lesion, Scrotal swe lling, Testicular pain, Testicular swelling, Urinary frequency, Urinary urgency, Urination decreased, Urination increased. Musculoskeletal Denies: Back pain, Extremity pain, Extremity swe lling, Joint pain, Joint swelling, Lumbar pain, Myalgia, Neck pain, Thora cic pain. Past Medical History - Adult Stated Complaint ABDOMINAL PAIN Allergies Coded Allergies: No Known Allergies (05/26/10) Home Medications Discontinued Scripts HYDROcodone/APAP (NORCO 10/325) 1 TAB PO Q4H PRN PRN PAIN HYDROcodone/APAP (NORCO 10/325) 1 TAB PO Q4H LA N PRN PAIN #14 TABS Prov: 06/18/19 DC: 09/23/19 0852 Changed since prior admit PANTOPRAZOLE DR (PROTONIX) 40 MG PO DAILY PANTOPRAZOLE DR (PROTONIX) 40 MG PO DAILY #30 T ABS Prov: 06/18/19 DC: 09/23/19 0852 Changed since prior admit Reported Medications [SYMTUZA] Discontinued Reported Medications EFAVIRENZ/EMTRICITAB/TENOFO 600/200/300 MG (ATRI CAMERON) 1 TAB PO BEDTIME Review of Nursing Notes Rev avail, and agree Past Medical History: Reports: HIV/AIDS. Additional Medical History HIV Smoking status for patients 13 years old or olde r: Never Smoker Other Social History Local resident, Good social support Physical Exam Vital Signs Review of Vital Signs Reviewed Basic Physical Exam Basic PE HEAD: Atraumatic/NC, EYES: PERRL, conj clear, ENT: Membranes moist, NECK: Supple, EXT: No gross abnormality, SKIN: No rashes, warm/dry, NEURO: alert oriented, NEURO: gross movement NL, PSYCH: NL t hought content Focused PE General/Const General/Const Awake, Alert, No acute distress, Well appearing MS Head Head Atraumatic, Normocephalic Eyes Eyes Atraumatic, PERRL, EOMI, No nystagmus Ears/Nose/Throat Ears/Nose/Throat Airway patent, Mucous membrane s moist Resp/Chest Respiratory/Chest Atraumatic, Breath sounds NL , Breath sounds = bilat Cardiovascular Cardiovascular Heart rate NL, Regular rhythm, H eart sounds NL, No murmurs Abdomen/GI Abdomen/GI Atraumatic, Soft, Non-tender, McBurn ey's non-tender MS Back Back Atraumatic, Inspection NL, Full range of m otion, Painless range of motion Interpretation Diagnostics Point of Care Testing Pulse Oximetry Pulse Ox % 100 On: Room air Interpretation Interpreted by me, Pulse oximetr y normal Time 2029 Patient Discharge Departure Discharge/Care Plan Referrals No Primary or Family Physician (PCP/Family) Fiorella Hilliard 09/22/192052: Physical Exam Vital Signs Vital Signs First Documented: Result Date Time Pulse Ox 99 09/21 1830 B/P 147/74 09/21 1830 B/P Mean 98 09/21 1830 O2 Delivery Room air 09/21 1830 Temp 36.6 09/21 1830 Pulse 126 09/21 1830 Resp 18 09/21 1830 Last Documented: Result Date Time Pulse Ox 100 09/21 2029 B/P 133/81 09/21 2029 B/P Mean 98 09/21 2029 O2 Delivery Room air 09/21 2029 Pulse 111 09/21 2029 Resp 18 09/21 2029 Temp 36.6 09/21 1831 Interpretation Diagnostics Lab Results Interpretation Results Laboratory Tests 09/22/191906: [Embedded Image Not Available] Laboratory Tests: 09/21 Chemistry Sodium (134 - 147 mmol/L) 142 Potassium (3.4 - 5.0 mmol/L) 4.2 Chloride (100 - 108 mmol/L) 108 Carbon Dioxide (21 - 32 mmol/L) 19 L Anion Gap (4.0 - 15.0 GAP calc) 15.0 BUN (7 - 18 MG/DL) 16 Creatinine (0.8 - 1.3 MG/DL) 1.3 Glomerular Filtr Rate (>60 estGFR) >=60 max est imate Glucose (70 - 110 MG/DL) 182 H Calcium (8.5 - 10.1 MG/DL) 9.5 Total Bilirubin (0.2 - 1.2 MG/DL) 2.00 H Direct Bilirubin (0.00 - 0.30 MG/DL) 0.70 H Indirect Bilirubin (0.2 - 1.2 MG/DL) 1.30 H AST (15 - 37 Unit/L) 146 H ALT (12 - 78 Unit/L) 64 Total Alk Phosphatase (50 - 136 Unit/L) 85 Troponin I (0.000 - 0.045 NG/ML) < 0.015 Total Protein (6.4 - 8.2 G/DL) 9.6 H Albumin (3.4 - 5.0 G/DL) 4.2 Lipase (114 - 286 Unit/L) 762 H Hematology WBC (3.5 - 11.0 K/mm3) 24.6 H RBC (4.70 - 6.10 M/mm3) 4.56 L Hgb (12.3 - 15.9 G/DL) 14.6 Hct (35.8 - 46.7 %) 40.6 MCV (86.3 - 98.9 Fl) 89.0 MCH (28.9 - 34.4 pg) 32.0 MCHC (32.1 - 34.5 G/DL) 36.0 H RDW (11.5 - 14.5 SD) 13.1 Plt Count (150 - 450 K/mm3) 275 MPV (7.0 - 9.6 fL) 10.60 H Neut % (Auto) (40 - 76 %) 92.1 H Lymph % (Auto) (20.5 - 51.1 %) 2.8 L [place] % (Auto) (1.7 - 9.3 %) 3.2 Eos % (Auto) (0.0 - 6.0 %) 0.0 Baso % (Auto) (0.0 - 2.0 %) 0.2 Neut # (Auto) (1.8 - 7.6 K/mm3) 22.7 H Lymph # (Auto) (0.6 - 3.0 K/mm3) 0.7 [place] # (Auto) (0.2 - 1.5 K/mm3) 0.8 Eos # (Auto) (0.0 - 0.4 K/mm3) 0.0 Baso # (Auto) (0.0 - 0.2 K/mm3) 0.1 Abs Immat Gran (auto) (0.00 - 0.03 x10 3/uL) 0. 42 H Add Manual Diff (CRITERIA DIFF/SCN) NO Immature Gran % (0.0 - 5.0 %) 1.7 Nucleated RBC % (0.0 - 1.0 /100WBC%) 0.2 Serology Nasal/Oral COVID-19 PCR (Negative) Negative Toxicology Urine Opiates Screen (<2000 NG/ML SCcutoff) NEG ATIVE Urine Methadone Screen (<300 NG/ML SCcutoff) NE GATIVE Urine Barbiturates (<200 NG/ML SCcutoff) NEGATI VE Ur Phencyclidine Scrn (<25 NG/ML SCcutoff) NEGA TIVE Ur Amphetamines Screen (<1000 NG/ML SCcutoff) N EGATIVE U Benzodiazepines Scrn (<200 NG/ML SCcutoff) NE GATIVE Urine Cocaine Screen (<300 NG/ML SCcutoff) NEGA TIVE Urine Cannabinoids (<50 NG/ML SCcutoff) NEGATIV E Urines Urine Color (YEL/STRAW discript) YELLOW Urine Appearance (CLEAR discript) CLEAR Urine pH (5.0 - 7.0 pH UNITS) 5.5 Ur Specific [place] (1.005 - 1.030 SG) >=1.030 H Urine Protein (NEG mg/dL) TRACE H Urine Glucose (UA) (NEG mg/dL) NEGATIVE Urine Ketones (NEG mg/dL) 3+ H Urine Blood (NEG mg/DL) 1+ H Urine Nitrite (NEG SCREEN) NEGATIVE Urine Bilirubin (NEG mg/dL) NEGATIVE Urine Urobilinogen (<2.0 mg/dL) 0.2 Ur Leukocyte Esterase (NEGATIVE Leuk/mcL) NEGAT EITAN Urine RBC (0 - 3 #RBC/HPF) 0-1 Urine WBC (0 - 3 #WBC/HPF) 0-1 Ur Squamous Epith Cells (NONE /HPF) NONE SEEN Urine Bacteria (NONE - TRACE /HPF) NONE SEEN Urine Culture Screen (Culture CHK Criteria) NO, WBC<10 Recent Impressions: RADIOLOGY - XR CHEST 1 V 09/21 1929 Report Impression - Status: SIGNED Entered: 09/22/20191948 IMPRESSION: Lungs are clear. No acute abnormalit y. Impression By: [email or web address] - Liban Palmer M.D. CAT SCAN - CT ABD PELVIS W/CONT 09/22 1951 Report Impression - Status: SIGNED Entered: 09/22/20192026 IMPRESSION: 1. Fatty infiltration of liver. 2. Otherwise unremarkable CT scan of abdomen and pelvis. Impression By: [email or web address] - Link Lopez M.D. Lab Imaging Statement Laboratory radiographic studies reviewed and con sidered in the medical decision-making. Re-Evaluation MDM )( Re-Evaluation/Progress #1 )( Re-Eval Status Unchanged ED Course Medication(s) Ordered Medication(s) Ordered: Central Nervous System Agents Sig/[place] Start time Last Medication Dose Route Stop Time Status Admin Acetaminophen 650 MG Q4H PRN PRN 09/21 2099 DC PO 09/22 2058 Hydrocodone Bitart/ 1 TAB Q4H PRN PRN 09/21 210 0 DC Acetaminophen PO 09/22 2058 Hydrocodone Bitart/ 1 TAB Q4H PRN PRN 09/21 210 0 DC 09/22 Acetaminophen PO 09/22 2058 1043 Gastrointestinal Drugs Sig/[place] Start time Last Medication Dose Route Stop Time Status Admin Docusate Sodium 100 MG Q12H PRN PRN 09/21 2100 DC PO 09/22 2058 Ondansetron HCl 4 MG Q4H PRN PRN 09/21 2099 DC 09/22 IV 09/22 2058 154 Differential Diagnosis Differential Diagnosis Angina/SD, Cholangitis, C holecystitis, Cholelithiasis, Diabetic ketoacidosis, Dyspepsia, Gastri tis, Gastroenteritis, GERD, Hepatitis, Inflam bowel disease, Pancreatitis, Peritonitis, Sepsis, Septic shock, Severe sepsis, Urinary tract infection Patient Discharge Departure Vital Signs/Condition Vital Signs First Documented: Result Date Time Pulse Ox 99 09/21 1830 B/P 147/74 09/21 1830 B/P Mean 98 09/21 1830 O2 Delivery Room air 09/21 1830 Temp 36.6 09/21 1830 Pulse 126 09/21 1830 Resp 18 09/21 1830 Last Documented: Result Date Time Pulse Ox 100 09/21 2029 B/P 133/81 09/21 2029 B/P Mean 98 09/21 2029 O2 Delivery Room air 09/21 2029 Pulse 111 09/21 2029 Resp 18 09/21 2030 Temp 36.6 09/21 183 All vital signs available at the time of this en try have been reviewed. Condition Stable Clinical Impression Clinical Impression Primary Impression: Pancreatitis Secondary Impressions: Transaminitis Time of Impression 2052 Disposition Decision Admit Admit Physician Name Matthew Carey MD Request Time 2052 Request Date 09/22/19 )( Admission Accepts Yes )( Accepted Time 2052 )( Accepted Date 09/22/19 Call Information will see patient Discharge/Care Plan Counseled Regarding Diagnosi s, Lab results, Imaging studies, Need for admission Electronically Signed by Dunia Valles on at 1329 RPT #: [id number] END OF REPORT 2019-09-22 20:11:00-00:00 [facility] ([facility]) EMERGENCY PROVIDER REPORT REPORT#:[id number] REPORT STATUS: Signed DATE:09/22/19 TIME:2010 PATIENT: QUETA DOYLE UNIT #: [id number] ROOM/BED: S211-1 : 84 AGE: 34 SEX: M PCP PHYS: No Primar y or Family Physician SERVICE AUTHOR: Dunia Valles * ALL edits or amendments must be made on the el [employer]/computer document * Dunia Valles 09/22/19 2011: HPI-Abd Pain M Under 40 General Confirmed Patient Yes Patient Type New patient Presentation Chief Complaint Abdominal pain Hx Obtained From Patient Sudden in Onset? Yes Onset Occurred Today Symptom Duration Waxes and wanes Caused by No trauma by history Location Diffuse Quality Aching, Painful Radiation Does not radiate. No: Back, Flank R, Flank L, Fl ank bilateral, Abdomen upper, Abdomen lower, Epigastric, RUQ, LUQ, RLQ , LLQ, Pelvis, Suprapubic, Inguinal R, Inguinal L, Inguinal bilat. Migration/Movement None Severity: Onset Moderate Severity: Current Moderate Associated with Reports: Nausea, Vomiting. Associated Other Pt denies other symptoms Context Immunization Status General All up to date Free Text HPI Notes Free Text HPI Notes 34-year-old male with past m edical history of HIV, pancreatitis presents to the for abdominal pain nausea vomiting th at began today. Patient states pain is 8 out of 10 in nature. Denies taking any medication for pain. Denies any fever or chills. Denies any other symptoms or complain ts. Patient denies any infectious respiratory sympto ms, fevers or chills, or any known contact with any known patient with COVID- 19. Risk-Abd Pain M Under 40 )( Torsion Risk factors reviewed, No risk factor s Review of Systems ROS Statements All systems rev neg except as marked. Complete sys rev neg except as marked. Basic Review of Systems Basic ROS EYES: No redness, ENT: No sore throat, HEM: No bleeding/bruising, SKIN : No rash, NEURO: No change MS, NEURO: No focal deficit, PSYCH: NL thought content Focused Review of Systems Constitutional Denies: Chills, Fatigue, Fever, Lethargy, Malais e, Recent wt loss, Weakness - generalized. Respiratory Denies: Cough, non-productive, Cough, productive , Dyspnea on exertion, Hemoptysis, Parox nocturnal dyspnea, Pleuritic p ain, Shortness of breath, Wheezing. Cardiovascular Denies: Chest pain, Dyspnea on exertion, Edema, Orthopnea, Palpitations, Parox nocturnal dyspnea, Syncope. GI Reports: Abdominal pain, Nausea, Vomiting. Male Denies: Dysuria, Flank pain, Hematuria, Incontinence, Nocturia, Penile discharge , Penile lesion, Scrotal swe lling, Testicular pain, Testicular swelling, Urinary frequency, Urinary urgency, Urination decreased, Urination increased. Musculoskeletal Denies: Back pain, Extremity pain, Extremity swe lling, Joint pain, Joint swelling, Lumbar pain, Myalgia, Neck pain, Thora cic pain. Past Medical History - Adult Stated Complaint ABDOMINAL PAIN Allergies Coded Allergies: No Known Allergies (05/26/10) Home Medications Discontinued Scripts HYDROcodone/APAP (NORCO 10/325) 1 TAB PO Q4H PRN PRN PAIN HYDROcodone/APAP (NORCO 10/325) 1 TAB PO Q4H LA N PRN PAIN #14 TABS Prov: 06/18/19 DC: 09/23/19 0852 Changed since prior admit PANTOPRAZOLE DR (PROTONIX) 40 MG PO DAILY PANTOPRAZOLE DR (PROTONIX) 40 MG PO DAILY #30 T ABS Prov: 06/18/19 DC: 09/23/19 0852 Changed since prior admit Reported Medications [SYMTUZA] Discontinued Reported Medications EFAVIRENZ/EMTRICITAB/TENOFO 600/200/300 MG (ATRI CAMERON) 1 TAB PO BEDTIME Review of Nursing Notes Rev avail, and agree Past Medical History: Reports: HIV/AIDS. Additional Medical History HIV Smoking status for patients 13 years old or olde r: Never Smoker Other Social History Local resident, Good social support Physical Exam Vital Signs Vital Signs First Documented: Result Date Time Pulse Ox 99 09/21 1830 B/P 147/74 09/21 1830 B/P Mean 98 09/21 1830 O2 Delivery Room air 09/21 1830 Temp 36.6 09/21 1830 Pulse 126 09/21 1830 Resp 18 09/21 1830 Last Documented: Result Date Time Pulse Ox 100 09/21 2029 B/P 133/81 09/21 2029 B/P Mean 98 09/21 2029 O2 Delivery Room air 09/21 2029 Pulse 111 09/21 2029 Resp 18 09/21 2029 Temp 36.6 09/21 183 Review of Vital Signs Reviewed Basic Physical Exam Basic PE HEAD: Atraumatic/NC, EYES: PERRL, conj clear, ENT: Membranes moist, NECK: Supple, EXT: No gross abnormality, SKIN: No rashes, warm/dry, NEURO: alert oriented, NEURO: gross movement NL, PSYCH: NL t hought content Focused PE General/Const General/Const Awake, Alert, No acute distress, Well appearing MS Head Head Atraumatic, Normocephalic Eyes Eyes Atraumatic, PERRL, EOMI, No nystagmus Ears/Nose/Throat Ears/Nose/Throat Airway patent, Mucous membrane s moist Resp/Chest Respiratory/Chest Atraumatic, Breath sounds NL, Breath sounds = bilat Cardiovascular Cardiovascular Heart rate NL, Regular rhythm, H eart sounds NL, No murmurs Abdomen/GI Abdomen/GI Atraumatic, Soft, Non-tender, McBurn ey's non-tender MS Back Back Atraumatic, Inspection NL, Full range of m otion, Painless range of motion Interpretation Diagnostics Lab Results Interpretation Results Laboratory Tests 09/22/191906: [Embedded Image Not Available] Laboratory Tests: 09/21 Chemistry Sodium (134 - 147 mmol/L) 142 Potassium (3.4 - 5.0 mmol/L) 4.2 Chloride (100 - 108 mmol/L) 108 Carbon Dioxide (21 - 32 mmol/L) 19 L Anion Gap (4.0 - 15.0 GAP calc) 15.0 BUN (7 - 18 MG/DL) 16 Creatinine (0.8 - 1.3 MG/DL) 1.3 Glomerular Filtr Rate (>60 estGFR) >=60 max est imate Glucose (70 - 110 MG/DL) 182 H Calcium (8.5 - 10.1 MG/DL) 9.5 Total Bilirubin (0.2 - 1.2 MG/DL) 2.00 H Direct Bilirubin (0.00 - 0.30 MG/DL) 0.70 H Indirect Bilirubin (0.2 - 1.2 MG/DL) 1.30 H AST (15 - 37 Unit/L) 146 H ALT (12 - 78 Unit/L) 64 Total Alk Phosphatase (50 - 136 Unit/L) 85 Troponin I (0.000 - 0.045 NG/ML) < 0.015 Total Protein (6.4 - 8.2 G/DL) 9.6 H Albumin (3.4 - 5.0 G/DL) 4.2 Lipase (114 - 286 Unit/L) 762 H Hematology WBC (3.5 - 11.0 K/mm3) 24.6 H RBC (4.70 - 6.10 M/mm3) 4.56 L Hgb (12.3 - 15.9 G/DL) 14.6 Hct (35.8 - 46.7 %) 40.6 MCV (86.3 - 98.9 Fl) 89.0 MCH (28.9 - 34.4 pg) 32.0 MCHC (32.1 - 34.5 G/DL) 36.0 H RDW (11.5 - 14.5 SD) 13.1 Plt Count (150 - 450 K/mm3) 275 MPV (7.0 - 9.6 fL) 10.60 H Neut % (Auto) (40 - 76 %) 92.1 H Lymph % (Auto) (20.5 - 51.1 %) 2.8 L [place] % (Auto) (1.7 - 9.3 %) 3.2 Eos % (Auto) (0.0 - 6.0 %) 0.0 Baso % (Auto) (0.0 - 2.0 %) 0.2 Neut # (Auto) (1.8 - 7.6 K/mm3) 22.7 H Lymph # (Auto) (0.6 - 3.0 K/mm3) 0.7 [place] # (Auto) (0.2 - 1.5 K/mm3) 0.8 Eos # (Auto) (0.0 - 0.4 K/mm3) 0.0 Baso # (Auto) (0.0 - 0.2 K/mm3) 0.1 Abs Immat Gran (auto) (0.00 - 0.03 x10 3/uL) 0. 42 H Add Manual Diff (CRITERIA DIFF/SCN) NO Immature Gran % (0.0 - 5.0 %) 1.7 Nucleated RBC % (0.0 - 1.0 /100WBC%) 0.2 Serology Nasal/Oral COVID-19 PCR (Negative) Negative Toxicology Urine Opiates Screen (<2000 NG/ML SCcutoff) NEG ATIVE Urine Methadone Screen (<300 NG/ML SCcutoff) NE GATIVE Urine Barbiturates (<200 NG/ML SCcutoff) NEGATI VE Ur Phencyclidine Scrn (<25 NG/ML SCcutoff) NEGA TIVE Ur Amphetamines Screen (<1000 NG/ML SCcutoff) N EGATIVE U Benzodiazepines Scrn (<200 NG/ML SCcutoff) NE GATIVE Urine Cocaine Screen (<300 NG/ML SCcutoff) NEG ATIVE Urine Cannabinoids (<50 NG/ML SCcutoff) NEGATIV E Urines Urine Color (YEL/STRAW discript) YELLOW Urine Appearance (CLEAR discript) CLEAR Urine pH (5.0 - 7.0 pH UNITS) 5.5 Ur Specific [place] (1.005 - 1.030 SG) >=1.030 H Urine Protein (NEG mg/dL) TRACE H Urine Glucose (UA) (NEG mg/dL) NEGATIVE Urine Ketones (NEG mg/dL) 3+ H Urine Blood (NEG mg/DL) 1+ H Urine Nitrite (NEG SCREEN) NEGATIVE Urine Bilirubin (NEG mg/dL) NEGATIVE Urine Urobilinogen (<2.0 mg/dL) 0.2 Ur Leukocyte Esterase (NEGATIVE Leuk/mcL) NEGAT [place] Urine RBC (0 - 3 #RBC/HPF) 0-1 Urine WBC (0 - 3 #WBC/HPF) 0-1 Ur Squamous Epith Cells (NONE /HPF) NONE SEEN Urine Bacteria (NONE - TRACE /HPF) NONE SEEN Urine Culture Screen (Culture CHK Criteria) NO , WBC<10 Recent Impressions: RADIOLOGY - XR CHEST 1 V 09/21 1929 Report Impression - Status: SIGNED Entered: 09/22/20191948 IMPRESSION: Lungs are clear. No acute abnormalit y. Impression By: [email or web address] - Liban Palmer M.D. CAT SCAN - CT ABD PELVIS W/CONT 09/22 1951 Report Impression - Status: SIGNED Entered: 09/22/20192026 IMPRESSION: 1. Fatty infiltration of liver. 2. Otherwise unremarkable CT scan of abdomen and pelvis. Impression By: [email or web address] Hai Lopez M.D. Point of Care Testing Pulse Oximetry Pulse Ox % 100 On: Room air Interpretation Interpreted by me, Pulse oximetr y normal Time 2029 Patient Discharge Departure Vital Signs/Condition Vital Signs First Documented: Result Date Time Pulse Ox 99 09/21 1830 B/P 147/74 09/21 1830 B/P Mean 98 09/21 1830 O2 Delivery Room air 09/21 1830 Temp 36.6 09/21 1830 Pulse 126 09/21 1830 Resp 18 09/21 1830 Last Documented: Result Date Time Pulse Ox 100 09/21 2029 B/P 133/81 09/21 2029 B/P Mean 98 09/21 2029 O2 Delivery Room air 09/21 2029 Pulse 111 09/21 2029 Resp 18 09/21 2029 Temp 36.6 09/21 1830 All vital signs available at the time of this en try have been reviewed. Discharge/Care Plan Referrals No Primary or Family Physician (PCP/Family) Kathleen HilliardJimy Renuka 09/22/192052: HPI-Abd Pain M Under 40 General Initial Greet Date/Time 09/22/19 183 Interpretation Diagnostics Lab Results Interpretation Lab Imaging Statement Laboratory radiographic studies reviewed and con sidered in the medical decision-making. Re-Evaluation MDM )( Re-Evaluation/Progress #1 )( Re-Eval Status Unchanged ED Course Medication(s) Ordered Medication(s) Ordered: Central Nervous System Agents Sig/[place] Start time Last Medication Dose Route Stop Time Status Admin Acetaminophen 650 MG Q4H PRN PRN 09/21 2100 DC PO 09/22 2058 Hydrocodone Bitart/ 1 TAB Q4H PRN PRN 09/21 210 0 DC Acetaminophen PO 09/22 2058 Hydrocodone Bitart/ 1 TAB Q4H PRN PRN 09/21 210 0 DC 09/22 Acetaminophen PO 09/22 2058 1043 Gastrointestinal Drugs Sig/[place] Start time Last Medication Dose Route Stop Time Status Admin Docusate Sodium 100 MG Q12H PRN PRN 09/21 2100 DC PO 09/22 2058 Ondansetron HCl 4 MG Q4H PRN PRN 09/21 2100 DC 09/22 IV 09/22 2058 1542 Differential Diagnosis Differential Diagnosis Angina/SD, Cholangitis, C holecystitis, Cholelithiasis, Diabetic ketoacidosis, Dyspepsia, Gastri tis, Gastroenteritis, GERD, Hepatitis, Inflam bowel disease, Pancreatitis, Peritonitis, Sepsis, Septic shock, Severe sepsis, Urinary tract infection Patient Discharge Departure Vital Signs/Condition Condition Stable Clinical Impression Clinical Impression Primary Impression: Pancreatitis Secondary Impressions: Transaminitis Time of Impression 2052 Disposition Decision Admit Admit Physician Name Matthew Carey MD Request Time 2052 Request Date 09/22/19 )( Admission Accepts Yes )( Accepted Time 2052 )( Accepted Date 09/22/19 Call Information will see patient Discharge/Care Plan Counseled Regarding Diagnosi s, Lab results, Imaging studies, Need for admission Electronically Signed by Dunia Valles on at 1329 at 1736 RPT #: [id number] END OF REPORT 2019-09-22 19:20:00-00:00 [id number] [facility] [id number] [place] [id number] PATIENT NAME: QUETA DOYLE ADMIT DATE: 0 ACCOUNT NO: [id number] ROOM NO: [facility] AGE: 34 REPORT TYPE: eELECTROCARDIOGRAM SEX: M ADMITTING PHYSICIAN: Matthew Carey MD ATTENDING PHYSICIAN: Matthew Carey MD Order: [id number] Test Reason : (Not Selected) Test Date/Time Stamp: [place] Sep 22 2019 19:20:04 Blood Pressure : / mmHG Vent. Rate : 100 BPM Atrial Rate : 100 BPM P-R Int : 142 ms QRS Dur : 072 ms QT Int : 340 ms P-R-T Axes : 081 052 047 degree s QTc Int : 438 ms Normal sinus rhythm Normal ECG No previous ECGs available Confirmed by MARYJO MICHELLE MD ([id number]) on 10:42:12 PM Referred By: Self Referred Confirmed by:MARYJO MERRILL MD at 2242 PATIENT NAME: QUETA DOYLE 708 2019-06-18 17:16:00-00:00 [facility] ([facility]) Gastroenterology Progress Note REPORT#:[id number] REPORT STATUS: Signed DATE:06/18/19 TIME:171 PATIENT: QUETA DOYLE UNIT #: [id number] ROOM/BED: [facility]15-1 : 84 AGE: 34 SEX: M ATTEND: Alexy Carey MD ADM AUTHOR: Nusrat Hilliard PA-C * ALL edits or amendments must be made on the el ectronic/computer document * Subjective HPI: he reports feeling improved today reports abdominal pain has improved he states he is able to tolerate diet Review of Systems Free Text ROS Notes Free Text ROS Notes: 14 body systems reviewed and negative otherwise stated in HPI Objective General VS/I O: Last Documented: Result Date Time Pulse Ox 100 06/17 1541 B/P 145/89 06/17 1541 B/P Mean 108.0 06/17 1541 O2 Delivery Room air 06/17 1541 Temp 98.4 06/17 1541 Pulse 81 06/17 1541 Resp 17 06/17 1541 24 hour I O ending at 0700: 06/17 0700 06/16 1900 Intake Total 1000.00 Output Total Balance 1000.00 Intake, IV 1000.00 Patient Weight Weight (lb): Weight (oz): Weight (kg): 65.909 Physical Exam General appearance: alert, awake, oriented, no a cute distress HEENT: anicteric, atraumatic, normocephalic Neck: full range of motion, non-tender Cardiovascular: normal S1/S2, regular rate rhyth m Respiratory: clear to auscul tation, equal breath sounds, symmetric expansion, no distress Abdomen: non-tender, normal bowel sounds, soft, no distention Extremities: moves all, normal range of motion Musculoskeletal: full range of motion Skin: dry, intact Psychiatry: normal affect, normal judgment/insig ht Results Findings/Data: Laboratory Tests 06/18/19424: [Embedded Image Not Available] Laboratory Tests 06/17 424 Chemistry Sodium (134 - 147 mmol/L) 135 Potassium (3.4 - 5.0 mmol/L) 3.4 Chloride (100 - 108 mmol/L) 100 Carbon Dioxide (21 - 32 mmol/L) 29 Anion Gap (4.0 - 15.0 GAP calc) 6.0 BUN (7 - 18 MG/DL) 2 L Creatinine (0.8 - 1.3 MG/DL) 0.7 L Glomerular Filtr Rate (>60 estGFR) >=60 max es timate Glucose (70 - 110 MG/DL) 118 H Calcium (8.5 - 10.1 MG/DL) 8.9 Lipase (114 - 286 Unit/L) 438 H Laboratory Tests 06/17 424 Hematology WBC (3.5 - 11.0 K/mm3) 8.2 RBC (4.70 - 6.10 M/mm3) 4.00 L Hgb (12.3 - 15.9 G/DL) 12.0 L Hct (35.8 - 46.7 %) 35.0 L MCV (86.3 - 98.9 Fl) 87.5 MCH (28.9 - 34.4 pg) 30.0 MCHC (32.1 - 34.5 G/DL) 34.3 RDW (11.5 - 14.5 SD) 12.4 Plt Count (150 - 450 K/mm3) 111.0 L MPV (7.0 - 9.6 fL) 11.30 H Neut % (Auto) (40 - 76 %) 81.8 H Lymph % (Auto) (20.5 - 51.1 %) 9.3 L [place] % (Auto) (1.7 - 9.3 %) 7.8 Eos % (Auto) (0.0 - 6.0 %) 1.0 Baso % (Auto) (0.0 - 2.0 %) 0.1 Neut # (Auto) (1.8 - 7.6 K/mm3) 6.68 Lymph # (Auto) (0.6 - 3.0 K/mm3) 0.8 [place] # (Auto) (0.2 - 1.5 K/mm3) 0.6 Eos # (Auto) (0.0 - 0.4 K/mm3) 0.1 Baso # (Auto) (0.0 - 0.2 K/mm3) 0.0 Add Manual Diff (CRITERIA DIFF/SCN) NO Diagnosis, Assessment Plan Free Text A P: Impression 1. Acute pancreatitis, likely secondary to HIV m eds vs ETOH use 2. Epigastric pain - improving 3. Leukocytosis - resolved 4. History of HIV, currently on Atripla Plan 1. Continue IVF hydration with IV LR at 250 cc/h r; may DC if tolerating diet advancement 2. Soft low fat diet as tolerated 3. May need to consider CT pancreatic protocol i f leukocytosis worsens or abdominal pain persists 4. Antiemetics, analgesia PRN 5. Continue PPI BID 6. Advised alcohol cessation 7. Follow-up with Dr. Loredo in outpatient GI cli erich in 2 weeks upon discharge Electronically Signed by Nusrat Hilliard PA-C on 06/06 03/28 at 1719 RPT #: [id number] END OF REPORT 2019-06-18 17:16:00-00:00 [facility] ([facility]) Gastroenterology Progress Note REPORT#:[id number] REPORT STATUS: Signed DATE:06/18/19 TIME:1715 PATIENT: QUETA DOYLE UNIT #: [id number] ROOM/BED: [place] [address] : 84 AGE: 34 SEX: M ATTEND: Alexy Carey MD ADM AUTHOR: Nusrat Hilliard PA-C * ALL edits or amendments must be made on the ROKT/computer document * Nusrat Hilliard 06/18/191715: Subjective HPI: he reports feeling improved today reports abdominal pain has improved he states he is able to tolerate diet Review of Systems Free Text ROS Notes Free Text ROS Notes: 14 body systems reviewed and negative otherwise stated in HPI Objective General VS/I O: Last Documented: Result Date Time Pulse Ox 100 06/17 1541 B/P 145/89 06/17 1541 B/P Mean 108.0 06/17 1541 O2 Delivery Room air 06/17 1541 Temp 98.4 06/17 1541 Pulse 81 06/17 1541 Resp 17 06/17 1541 24 hour I O ending at 0700: 06/17 0700 06/16 1900 Intake Total 1000.00 Output Total Balance 1000.00 Intake, IV 1000.00 Patient Weight Weight (lb): Weight (oz): Weight (kg): 65.909 Physical Exam General appearance: alert, awake, oriented, no a cute distress HEENT: anicteric, atraumatic, normocephalic Neck: full range of motion, non-tender Cardiovascular: normal S1/S2, regular rate rhyth m Respiratory: clear to auscul tation, equal breath sounds, symmetric expansion, no distress Abdomen: non-tender, normal bowel sounds, soft, no distention Extremities: moves all, normal range of motion Musculoskeletal: full range of motion Skin: dry, intact Psychiatry: normal affect, normal judgment/insig ht Results Findings/Data: Laboratory Tests 06/18/19424: [Embedded Image Not Available] Laboratory Tests 06/17 424 Chemistry Sodium (134 - 147 mmol/L) 135 Potassium (3.4 - 5.0 mmol/L) 3.4 Chloride (100 - 108 mmol/L) 100 Carbon Dioxide (21 - 32 mmol/L) 29 Anion Gap (4.0 - 15.0 GAP calc) 6.0 BUN (7 - 18 MG/DL) 2 L Creatinine (0.8 - 1.3 MG/DL) 0.7 L Glomerular Filtr Rate (>60 estGFR) >=60 max est imate Glucose (70 - 110 MG/DL) 118 H Calcium (8.5 - 10.1 MG/DL) 8.9 Lipase (114 - 286 Unit/L) 438 H Laboratory Tests 06/17 0425 Hematology WBC (3.5 - 11.0 K/mm3) 8.2 RBC (4.70 - 6.10 M/mm3) 4.00 L Hgb (12.3 - 15.9 G/DL) 12.0 L Hct (35.8 - 46.7 %) 35.0 L MCV (86.3 - 98.9 Fl) 87.5 MCH (28.9 - 34.4 pg) 30.0 MCHC (32.1 - 34.5 G/DL) 34.3 RDW (11.5 - 14.5 SD) 12.4 Plt Count (150 - 450 K/mm3) 111.0 L MPV (7.0 - 9.6 fL) 11.30 H Neut % (Auto) (40 - 76 %) 81.8 H Lymph % (Auto) (20.5 - 51.1 %) 9.3 L [place] % (Auto) (1.7 - 9.3 %) 7.8 Eos % (Auto) (0.0 - 6.0 %) 1.0 Baso % (Auto) (0.0 - 2.0 %) 0.1 Neut # (Auto) (1.8 - 7.6 K/mm3) 6.68 Lymph # (Auto) (0.6 - 3.0 K/mm3) 0.8 [place] # (Auto) (0.2 - 1.5 K/mm3) 0.6 Eos # (Auto) (0.0 - 0.4 K/mm3) 0.1 Baso # (Auto) (0.0 - 0.2 K/mm3) 0.0 Add Manual Diff (CRITERIA DIFF/SCN) NO Diagnosis, Assessment Plan Free Text A P: Impression 1. Acute pancreatitis, likely secondary to HIV m eds vs ETOH use 2. Epigastric pain - improving 3. Leukocytosis - resolved 4. History of HIV, currently on Atripla Plan 1. Continue IVF hydration with IV LR at 250 cc/h r; may DC if tolerating diet advancement 2. Soft low fat diet as tolerated 3. May need to consider CT pancreatic protocol i f leukocytosis worsens or abdominal pain persists 4. Antiemetics, analgesia PRN 5. Continue PPI BID 6. Advised alcohol cessation 7. Follow-up with Dr. Loredo in outpatient GI cli erich in 2 weeks upon discharge Julio Loredo 06/18/19 1808: Attestations Physician Attestation Agree w/findings plan: I have personally seen and examined the patient with GITA Osborn. I agree with the HPI, physical examination findi ngs, and assessment/plan as documented by the PA, and as amended herein by me Electronically Signed by Nusrat Hilliard PA-C on 06/06 03/28 at 1719 at 1809 RPT #: [id number] END OF REPORT 2019-06-18 10:41:00-00:00 [facility] ([facility]) Hospitalist Discharge Summary REPORT#:[id number] REPORT STATUS: Signed DATE:06/18/19 TIME:1041 PATIENT: QUETA DOYLE UNIT #: [id number] ROOM/BED: [place] [address] : 84 AGE: 34 SEX: M ATTEND: Alexy Carey MD ADM AUTHOR: Matthew Carey MD * ALL edits or amendments must be made on the el ectronic/computer document * PCP PCP Discharge to: home General Information Problem List/A P: 1. Acute pancreatitis 2. HIV (human immunodeficiency virus infection) 3. Intractable nausea and vomiting 4. Abdominal pain Discharge date: 06/18/19 Hospital course: Acute pancreatitis Possible due to medications and alcohol HIV High blood pressure Elevated LFTs Intractable abdominal pain Nausea and vomiting Course 34yo AAM with Past medical history of HIV and pa ncreatitis Admitted with abdominal pain which has been going over the last 3 days pain is diffuse sharp 10 out of 10 in severity. Associated wit h nausea and vomiting. As her symptoms was progressively worsening was brought to ER an d admitted for further management for pancreatitis. The patient was adm itted and was monitored closely. He was kept n.p.o. and started on aggre ssive hydration with Ringer lacta te 250 mL/h and pain control. Had Serial lipase and Monitored LFTs Discussed about alcohol cessation and offered me asures. GI was consulted who recommended conservative man agement. Patient responded well to treatment and is being discharged home today in a stable condition with and advised to follow-up with PCP in 1 week and also with GI in 1 to 2 we eks Med Rec Med Rec Discharge meds: Continue taking these medications: EFAVIRENZ/EMTRICITAB/TENOFO 600/200/300 MG (ATRI CAMERON) 1 TAB TAB 1 TABLET ORAL BEDTIME. Start taking the following new medications: HYDROcodone/APAP (NORCO 10/325) 10 MG-325 MG TAB 1 TABLET ORAL EVERY 4 HOURS NEEDED. as neede d for PAIN Qty = [address] (PROTONIX) 40 MG TAB.DR 40 MILLIGRAM ORAL DAILY. Qty = 30 No Refills Discharge Instructions Diet: low fat Activity: as tolerated Discharge management: greater than 30 mins Follow-up Appointments PCP: PCP: No Primary or Family Physician Follow up timeframe: In 1-2 weeks Attending Physician: Attending Physician: Matthew Carey MD Consulting provider 1: Provider 1: Julio Loredo MD Specialty: GASTROENTEROLOGY Follow up timeframe: In 2-3 weeks Objective General VS/I O: Vital Signs: Temp Pulse Resp B/P B/P Pulse O2 O2 Flow FiO2 Mean Ox Delivery Rate 98.8 65 20 166/102 123.5 97 Room air 98.2 68 18 156/97 116.7 99 Room air 98.2 74 18 155/108 123.6 100 Room air 98.2 73 18 148/101 116.9 99 Room air 66 147/95 112.0 98.6 79 18 159/99 119.3 99 98.0 79 16 144/99 114 100 95 17 100 98.1 122 17 90/65 73 99 Room air Physical Exam General appearance: alert, awake Head/Eyes: atraumatic, normocephalic ENT: dry mucosal membrane Neck: supple/no meningismus Cardiovascular: normal heart sounds, regular rat e rhythm Respiratory: aerating well, symmetric expansion Abdomen: soft, no distention Genitourinary: no bladder distention Rectal: deferred Extremities: moves all, no edema Musculoskeletal: normal inspection Neuro/COLLAR SETTER OVERLOCK: alert, oriented X 3 Skin: dry, no rash Lymphatics: no lymphadenopathy Psychiatry: anxious at 1515 RPT #: [id number] END OF REPORT 2019-06-17 15:20:00-00:00 [facility] ([facility]) GE Consultation Note REPORT#:[id number] REPORT STATUS: Signed DATE:06/17/19 TIME:1520 PATIENT: QUETA DOYLE UNIT #: [id number] ROOM/BED: [place] [address] : 84 AGE: 34 SEX: M ATTEND: Alexy Carey MD ADM AUTHOR: Nusrat Hilliard PA-C * ALL edits or amendments must be made on the ROK[employer]/computer document * History of Present Illness Chief complaint: abdominal pain HPI: Patient is a 34 year old mal e with past medical history of HIV who presented to the hospital with complaints of epigastric to RU Q abdominal pain. He also reports associated nausea and vomiting. He denies fever and chills. Blood work upon arrival to the ED was significant for lipse of 2019, WBC 12.5 and AST of 42. Of note, patient was admitted to facility in February 2019 for actue pancreatitis. He reports he has cut down on the amount of ETOH usage. However, he still drinks socially. GI was consulted for r ecurrent pancreatitis. Upon examination today, he report s his abdominal pain is still presented but slightly improved than prior. History - Adult longitudinal Past medical history: Reports: HIV/AIDS. Additional medical history: HIV Additional surgical history: No significant past medical history Family history: Reports: Hypertension. Smoking status for patients 13 years old or olde r: Never Smoker Other social history: Local resident, Good socia l support Allergies: Coded Allergies: No Known Allergies (05/26/10) Review of Systems Free Text ROS Notes Free Text ROS Notes: 14 body systems was reviewed and negative otherw ise stated in HPI Objective Physical Exam VS/I O: Last Documented: Result Date Time Pulse Ox 99 06/16 1140 B/P 157/102 06/16 1140 B/P Mean 120.1 06/16 1140 O2 Delivery Room air 06/16 1140 Temp 98.6 06/16 1140 Pulse 74 06/16 1140 Resp 20 06/16 1140 24 hour I O ending at 0700: 06/16 0700 06/15 1900 Intake Total 1650.00 Output Total Balance 1650.00 Intake, IV 1650.00 Intake, Oral 0 Number Voids 3 Output, Emesis Patient 145 lb Weight Weight Stated/Reported Measurement Method Patient Weight Weight (lb): Weight (oz): Weight (kg): 65.909 General appearance: alert, awake, oriented, no a cute distress HEENT: anicteric, atraumatic, normocephalic Neck: full range of motion, non-tender Cardiovascular: normal S1/S2, regular rate rhyth m Respiratory: clear to auscul tation, equal breath sounds, symmetric expansion, no distress Abdomen: tenderness (epigastric and RUQ), normal bowel sounds, soft Extremities: moves all, normal range of motion Musculoskeletal: full range of motion Neuro/COLLAR SETTER OVERLOCK: alert, oriented X 3 Skin: dry, intact Psychiatry: normal affect, normal judgment/insig ht Results Findings/Data: Laboratory Tests 06/17/19 0507: [Embedded Image Not Available] Laboratory Tests 06/16 0507 Chemistry Sodium (134 - 147 mmol/L) 138 Potassium (3.4 - 5.0 mmol/L) 3.5 Chloride (100 - 108 mmol/L) 106 Carbon Dioxide (21 - 32 mmol/L) 27 Anion Gap (4.0 - 15.0 GAP calc) 5.0 BUN (7 - 18 MG/DL) 8 Creatinine (0.8 - 1.3 MG/DL) 0.8 Glomerular Filtr Rate (>60 estGFR) >=60 max est imate Glucose (70 - 110 MG/DL) 115 H Calcium (8.5 - 10.1 MG/DL) 8.8 Total Bilirubin (0.2 - 1.2 MG/DL) 1.10 Direct Bilirubin (0.00 - 0.30 MG/DL) 0.40 H Indirect Bilirubin (0.2 - 1.2 MG/DL) 0.70 AST (15 - 37 Unit/L) 28 ALT (12 - 78 Unit/L) 30 Total Alk Phosphatase (50 - 136 Unit/L) 63 Total Protein (6.4 - 8.2 G/DL) 7.6 Albumin (3.4 - 5.0 G/DL) 3.5 Lipase (114 - 286 Unit/L) 1252 H Diagnosis, Assessment Plan Free Text DxA P Notes Free Text DxA P Notes: Impression 1. Acute pancreatitis, likely secondary to HIV m eds vs ETOH use 2. Epigastric pain 3. Leukocytosis 4. History of HIV, currently on Atripla Plan 1. Continue IVF hydration with IV LR at 250 cc/h r; may DC if tolerating diet advancement 2. Clear liquid diet, advance to soft low fat di et as tolerated 3. May need to consider CT pancreatic protocol i f leukocytosis worsens or abdominal pain persists 4. Antiemetics, analgesia PRN 5. Continue PPI BID 6. Advised alcohol cessation Electronically Signed by Nusrat Hilliard PA-C on 06/06 02/25 at 1535 RPT #: [id number] END OF REPORT 2019-06-17 15:20:00-00:00 [facility] ([facility]) GE Consultation Note REPORT#:[id number] REPORT STATUS: Signed DATE:06/17/19 TIME:152 PATIENT: QUETA DOYLE UNIT #: [id number] ROOM/BED: [place] [address] : 84 AGE: 34 SEX: M ATTEND: Alexy Carey MD ADM AUTHOR: Nusrat Hilliard PA-C * ALL edits or amendments must be made on the el [employer]/computer document * Nusrat Hilliard 06/17/19 1520: History of Present Illness Chief complaint: abdominal pain HPI: Patient is a 34 year old mal e with past medical history of HIV who presented to the hospital with complaints of epigastric to RU Q abdominal pain. He also reports associated nausea and vomiting. He denies fever and chills. Blood work upon arrival to the ED was significant for lipse of 2019, WBC 12.5 and AST of 42. Of note, patient was admitted to facility in February 2019 for actue pancreatitis. He reports he has cut down on the amount of ETOH usage. However, he still drinks socially. GI was consulted for r ecurrent pancreatitis. Upon examination today, he report s his abdominal pain is still presented but slightly improved than prior. History - Adult longitudinal Past medical history: Reports: HIV/AIDS. Additional medical history: HIV Additional surgical history: No significant past medical history Family history: Reports: Hypertension. Smoking status for patients 13 years old or olde r: Never Smoker Other social history: Local resident, Good socia l support Allergies: Coded Allergies: No Known Allergies (05/26/10) Review of Systems Free Text ROS Notes Free Text ROS Notes: 14 body systems was reviewed and negative otherw ise stated in HPI Objective Physical Exam VS/I O: Last Documented: Result Date Time Pulse Ox 99 06/16 1140 B/P 157/102 06/16 1140 B/P Mean 120.1 06/16 1140 O2 Delivery Room air 06/16 1140 Temp 98.6 06/16 1140 Pulse 74 06/16 1140 Resp 20 06/16 1140 24 hour I O ending at 0700: 06/16 0700 06/15 1900 Intake Total 1650.00 Output Total Balance 1650.00 Intake, IV 1650.00 Intake, Oral 0 Number Voids 3 Output, Emesis Patient 145 lb Weight Weight Stated/Reported Measurement Method Patient Weight Weight (lb): Weight (oz): Weight (kg): 65.909 General appearance: alert, awake, oriented, no a cute distress HEENT: anicteric, atraumatic, normocephalic Neck: full range of motion, non-tender Cardiovascular: normal S1/S2, regular rate rhyth m Respiratory: clear to auscul tation, equal breath sounds, symmetric expansion, no distress Abdomen: tenderness (epigastric and RUQ), normal bowel sounds, soft Extremities: moves all, normal range of motion Musculoskeletal: full range of motion Neuro/COLLAR SETTER OVERLOCK: alert, oriented X 3 Skin: dry, intact Psychiatry: normal affect, normal judgment/insig ht Results Findings/Data: Laboratory Tests 06/17/19506: [Embedded Image Not Available] Laboratory Tests 06/16 506 Chemistry Sodium (134 - 147 mmol/L) 138 Potassium (3.4 - 5.0 mmol/L) 3.5 Chloride (100 - 108 mmol/L) 106 Carbon Dioxide (21 - 32 mmol/L) 27 Anion Gap (4.0 - 15.0 GAP calc) 5.0 BUN (7 - 18 MG/DL) 8 Creatinine (0.8 - 1.3 MG/DL) 0.8 Glomerular Filtr Rate (>60 estGFR) >=60 max est imate Glucose (70 - 110 MG/DL) 115 H Calcium (8.5 - 10.1 MG/DL) 8.8 Total Bilirubin (0.2 - 1.2 MG/DL) 1.10 Direct Bilirubin (0.00 - 0.30 MG/DL) 0.40 H Indirect Bilirubin (0.2 - 1.2 MG/DL) 0.70 AST (15 - 37 Unit/L) 28 ALT (12 - 78 Unit/L) 30 Total Alk Phosphatase (50 - 136 Unit/L) 63 Total Protein (6.4 - 8.2 G/DL) 7.6 Albumin (3.4 - 5.0 G/DL) 3.5 Lipase (114 - 286 Unit/L) 1252 H Diagnosis, Assessment Plan Free Text DxA P Notes Free Text DxA P Notes: Impression 1. Acute pancreatitis, likely secondary to HIV m eds vs ETOH use 2. Epigastric pain 3. Leukocytosis 4. History of HIV, currently on Atripla Plan 1. Continue IVF hydration with IV LR at 250 cc/h r; may DC if tolerating diet advancement 2. Clear liquid diet, advance to soft low fat di et as tolerated 3. May need to consider CT pancreatic protocol i f leukocytosis worsens or abdominal pain persists 4. Antiemetics, analgesia PRN 5. Continue PPI BID 6. Advised alcohol cessation Julio Loredo 06/17/19 1614: Attestations Physician Attestation Agree w/findings plan: I have personally seen and examined the patient with GITA Osborn. I agree with the HPI, physical exam findings and assessment/plan as documented by the GITA , and as amended herein by me Electronically Signed by Nusrat Hilliard PA-C on 06/06 02/25 at 1535 at 1618 RPT #: [id number] END OF REPORT 2019-06-17 08:59:00-00:00 [facility] ([facility]) Hospitalist Progress Note REPORT#:[id number] REPORT STATUS: Signed DATE:06/17/19 TIME:858 PATIENT: QUETA DOYLE UNIT #: [id number] ROOM/BED: [place] [address] : 84 AGE: 34 SEX: M ATTEND: Alexy Carey MD ADM AUTHOR: Matthew Carey MD * ALL edits or amendments must be made on the [employer] document * Subjective Chief Complaint: Pain is still present Has nausea and 1 episode of vomiting Objective General VS/I O: Vital Signs: Date Time Temp Pulse Resp B/P B/P Pulse O2 O2 F low FiO2 Mean Ox Delivery Rate 06/16 0731 98.8 65 20 166/102 123.5 97 Room air 06/16 0352 98.2 68 18 156/97 116.7 99 Room air 06/15 2319 98.2 74 18 155/108 123.6 100 Room ai r 06/15 1957 98.2 73 18 148/101 116.9 99 Room air 06/15 1727 66 147/95 112.0 06/15 1726 98.6 79 18 159/99 119.3 99 06/15 1600 98.0 79 16 144/99 114 100 06/15 1350 95 17 100 06/15 1331 98.1 122 17 90/65 73 99 Room air 24 hour I O ending at 0700: 06/16 0700 06/15 1900 Intake Total 1650.00 Output Total Balance 1650.00 Intake, IV 1650.00 Intake, Oral 0 Number Voids 3 Output, Emesis Patient 145 lb Weight Weight Stated/Reported Measurement Method Patient Weight Weight (lb): Weight (oz): Weight (kg): 65.909 Medications: Active Meds + DC'd Last 24 Hrs Lactated Ringer's 1,000 ML .[id number] IV Acetaminophen 650 MG Q4H PRN PRN PO Dextrose/Sodium Chloride 1,000 ML .[id number] IV (D C) Docusate Sodium 100 MG Q12H PRN PRN PO Hydrocodone Bitart/Acetaminophen 1 TAB Q4H PRN P RN PO Hydrocodone Bitart/Acetaminophen 1 TAB Q4H PRN P RN PO Morphine Sulfate 2 MG Q3H PRN PRN IV Morphine Sulfate 4 MG Q3H PRN PRN IV Ondansetron HCl 4 MG Q4H PRN PRN IV Ondansetron HCl 4 MG X1ED STA IV (DC) Morphine Sulfate 4 MG X1ED STA IV (DC) Sodium Chloride 1,000 ML STAT STA IV (DC) Physical Exam General appearance: alert, awake Head/Eyes: atraumatic, normocephalic ENT: dry mucosal membrane Neck: supple/no meningismus Cardiovascular: normal heart sounds, regular rat e rhythm Respiratory: aerating well, symmetric expansion Abdomen: soft, no distention Genitourinary: no bladder distention Rectal: deferred Extremities: moves all, no edema Musculoskeletal: normal inspection Neuro/COLLAR SETTER OVERLOCK: alert, oriented X 3 Skin: dry, no rash Lymphatics: no lymphadenopathy Psychiatry: anxious Results Findings/Data: Laboratory Tests 06/16 0507 Chemistry Sodium (134 - 147 mmol/L) 138 Potassium (3.4 - 5.0 mmol/L) 3.5 Chloride (100 - 108 mmol/L) 106 Carbon Dioxide (21 - 32 mmol/L) 27 Anion Gap (4.0 - 15.0 GAP calc) 5.0 BUN (7 - 18 MG/DL) 8 Creatinine (0.8 - 1.3 MG/DL) 0.8 Glomerular Filtr Rate (>60 estGFR) >=60 max est imate Glucose (70 - 110 MG/DL) 115 H Calcium (8.5 - 10.1 MG/DL) 8.8 Total Bilirubin (0.2 - 1.2 MG/DL) 1.10 Direct Bilirubin (0.00 - 0.30 MG/DL) 0.40 H Indirect Bilirubin (0.2 - 1.2 MG/DL) 0.70 AST (15 - 37 Unit/L) 28 ALT (12 - 78 Unit/L) 30 Total Alk Phosphatase (50 - 136 Unit/L) 63 Total Protein (6.4 - 8.2 G/DL) 7.6 Albumin (3.4 - 5.0 G/DL) 3.5 Lipase (114 - 286 Unit/L) 1252 H 06/15 1336 Chemistry Sodium (134 - 147 mmol/L) 138 Potassium (3.4 - 5.0 mmol/L) 3.5 Chloride (100 - 108 mmol/L) 104 Carbon Dioxide (21 - 32 mmol/L) 26 Anion Gap (4.0 - 15.0 GAP calc) 8.0 BUN (7 - 18 MG/DL) 11 Creatinine (0.8 - 1.3 MG/DL) 0.9 Glomerular Filtr Rate (>60 estGFR) >=60 max est imate Glucose (70 - 110 MG/DL) 148 H Calcium (8.5 - 10.1 MG/DL) 9.5 Total Bilirubin (0.2 - 1.2 MG/DL) 1.30 H AST (15 - 37 Unit/L) 42 H ALT (12 - 78 Unit/L) 35 Total Alk Phosphatase (50 - 136 Unit/L) 82 Total Protein (6.4 - 8.2 G/DL) 9.2 H Albumin (3.4 - 5.0 G/DL) 4.0 Globulin (GM/dL) 5.2 Albumin/Globulin Ratio (1.2 - 2.2 RATIO) 0.8 L Lipase (114 - 286 Unit/L) 2019 H Laboratory Tests 06/15 1336 Hematology WBC (3.5 - 11.0 K/mm3) 12.5 H RBC (4.70 - 6.10 M/mm3) 4.59 L Hgb (12.3 - 15.9 G/DL) 14.0 Hct (35.8 - 46.7 %) 40.1 MCV (86.3 - 98.9 Fl) 87.4 MCH (28.9 - 34.4 pg) 30.5 MCHC (32.1 - 34.5 G/DL) 34.9 H RDW (11.5 - 14.5 SD) 12.7 Plt Count (150 - 450 K/mm3) 209.0 MPV (7.0 - 9.6 fL) 10.90 H Neut % (Auto) (40 - 76 %) 84.7 H Lymph % (Auto) (20.5 - 51.1 %) 7.4 L [place] % (Auto) (1.7 - 9.3 %) 7.8 Eos % (Auto) (0.0 - 6.0 %) 0.0 Baso % (Auto) (0.0 - 2.0 %) 0.1 Neut # (Auto) (1.8 - 7.6 K/mm3) 10.61 H Lymph # (Auto) (0.6 - 3.0 K/mm3) 0.9 [place] # (Auto) (0.2 - 1.5 K/mm3) 1.0 Eos # (Auto) (0.0 - 0.4 K/mm3) 0.0 Baso # (Auto) (0.0 - 0.2 K/mm3) 0.0 Add Manual Diff (CRITERIA DIFF/SCN) NO Laboratory Tests 06/15 1336 Toxicology Ethyl Alcohol (0 - 10 MG/DL) < 3 Diagnosis, Assessment Plan Problem List/A P: 1. Acute pancreatitis 2. HIV (human immunodeficiency virus infection) 3. Intractable nausea and vomiting 4. Abdominal pain Free Text DxA P Notes Free text DxA P notes: Acute pancreatitis Possible due to medications and alcohol HIV High blood pressure Elevated LFTs Intractable abdominal pain Nausea and vomiting Plan Pain control Aggressive hydration with Ringer lactate 250 mL/ h Serial lipase Monitor LFTs Hydralazine PRN for high blood pressure Address alcohol cessation We will get a GI consult GI/DVT prophylaxis at 0905 RPT #: [id number] END OF REPORT 2019-06-16 16:54:00-00:00 [facility] ([facility]) Hospitalist History Physical REPORT#:[id number] REPORT STATUS: Signed DATE:06/16/19 TIME:1653 PATIENT: QUETA DOYLE UNIT #: [id number] ROOM/BED: [place] [id number] : 84 AGE: 34 SEX: M ATTEND: Alexy Carey MD ADM AUTHOR: Matthew Carey MD * ALL edits or amendments must be made on the el [employer]/computer document * History of Present Illness HPI Chief complaint: Abdominal Pain HPI: 34yo AAM with Past medical history of HIV and pa ncreatitis Admitted with abdominal pain which has been going over the last 3 days pain is diffuse sharp 10 out of 10 in severity. Associated wit h nausea and vomiting. As her symptoms was progressively worsening was brought to ER an d admitted for further management for pancreatitis. Denies any fever or chills No sick contacts No melena Patient states that this episode is similar to t he previous episodes of pancreatitis which was due t o medications and alcohol. Patient also states that he drinks socially History Past medical history: Reports: HIV/AIDS. Additional medical history: HIV Additional surgical history: No significant past medical history Family history: Reports: Hypertension. Smoking status for patients 13 years old or olde r: Never Smoker Other social history: Local resident, Good socia l support Medication/Allergy-Vaccine Hx Home Medications: EFAVIRENZ/EMTRICITAB/TENOFO 600/200/300 MG (ATRI CAMERON) 1 TAB PO BEDTIME Discontinued Medications HYDROcodone/APAP (NORCO 5/325) 1 TAB PO Q6H PRN PRN PAIN Discontinued reason: Patient stopped taking traMADol (ULTRAM) 50 MG PO Q6H PRN PRN PAIN Discontinued reason: Patient stopped taking Allergies: Coded Allergies: No Known Allergies (05/26/10) Review of Systems Additional notes: All the 14 point review of systems negative exce pt for those mentioned HPI Objective General VS/I O: Vital Signs: Date Time Temp Pulse Resp B/P B/P Pulse O2 O2 F low FiO2 Mean Ox Delivery Rate 06/15 1600 98.0 79 16 144/99 114 100 06/15 1350 95 17 100 06/15 1331 98.1 122 17 90/65 73 99 Room air Patient Weight Weight (lb): Weight (oz): Weight (kg): 65.909 Medications: Active Meds + DC'd Last 24 Hrs Acetaminophen 650 MG Q4H PRN PRN PO Dextrose/Sodium Chloride 1,000 ML .[id number] IV Docusate Sodium 100 MG Q12H PRN PRN PO Hydrocodone Bitart/Acetaminophen 1 TAB Q4H PRN P RN PO Hydrocodone Bitart/Acetaminophen 1 TAB Q4H PRN P RN PO Morphine Sulfate 2 MG Q3H PRN PRN IV Morphine Sulfate 4 MG Q3H PRN PRN IV Ondansetron HCl 4 MG Q4H PRN PRN IV Ondansetron HCl 4 MG X1ED STA IV (DC) Morphine Sulfate 4 MG X1ED STA IV (DC) Sodium Chloride 1,000 ML STAT STA IV (DC) Physical Exam General appearance: alert, awake Head/Eyes: atraumatic, normocephalic ENT: dry mucosal membrane Neck: supple/no meningismus Cardiovascular: normal heart sounds, regular rat e rhythm Respiratory: aerating well, symmetric expansion Abdomen: soft, no distention Genitourinary: no bladder distention Rectal: deferred Extremities: moves all, no edema Musculoskeletal: normal inspection Neuro/COLLAR SETTER OVERLOCK: alert, oriented X 3 Skin: dry, no rash Lymphatics: no lymphadenopathy Psychiatry: anxious Results Findings/Data: Laboratory Tests 06/15 1336 Chemistry Sodium (134 - 147 mmol/L) 138 Potassium (3.4 - 5.0 mmol/L) 3.5 Chloride (100 - 108 mmol/L) 104 Carbon Dioxide (21 - 32 mmol/L) 26 Anion Gap (4.0 - 15.0 GAP calc) 8.0 BUN (7 - 18 MG/DL) 11 Creatinine (0.8 - 1.3 MG/DL) 0.9 Glomerular Filtr Rate (>60 estGFR) >=60 max est imate Glucose (70 - 110 MG/DL) 148 H Calcium (8.5 - 10.1 MG/DL) 9.5 Total Bilirubin (0.2 - 1.2 MG/DL) 1.30 H AST (15 - 37 Unit/L) 42 H ALT (12 - 78 Unit/L) 35 Total Alk Phosphatase (50 - 136 Unit/L) 82 Total Protein (6.4 - 8.2 G/DL) 9.2 H Albumin (3.4 - 5.0 G/DL) 4.0 Globulin (GM/dL) 5.2 Albumin/Globulin Ratio (1.2 - 2.2 RATIO) 0.8 L Lipase (114 - 286 Unit/L) 2019 H Laboratory Tests 06/15 1336 Hematology WBC (3.5 - 11.0 K/mm3) 12.5 H RBC (4.70 - 6.10 M/mm3) 4.59 L Hgb (12.3 - 15.9 G/DL) 14.0 Hct (35.8 - 46.7 %) 40.1 MCV (86.3 - 98.9 Fl) 87.4 MCH (28.9 - 34.4 pg) 30.5 MCHC (32.1 - 34.5 G/DL) 34.9 H RDW (11.5 - 14.5 SD) 12.7 Plt Count (150 - 450 K/mm3) 209.0 MPV (7.0 - 9.6 fL) 10.90 H Neut % (Auto) (40 - 76 %) 84.7 H Lymph % (Auto) (20.5 - 51.1 %) 7.4 L [place] % (Auto) (1.7 - 9.3 %) 7.8 Eos % (Auto) (0.0 - 6.0 %) 0.0 Baso % (Auto) (0.0 - 2.0 %) 0.1 Neut # (Auto) (1.8 - 7.6 K/mm3) 10.61 H Lymph # (Auto) (0.6 - 3.0 K/mm3) 0.9 [place] # (Auto) (0.2 - 1.5 K/mm3) 1.0 Eos # (Auto) (0.0 - 0.4 K/mm3) 0.0 Baso # (Auto) (0.0 - 0.2 K/mm3) 0.0 Add Manual Diff (CRITERIA DIFF/SCN) NO Laboratory Tests 06/15 1336 Toxicology Ethyl Alcohol (0 - 10 MG/DL) < 3 Diagnosis, Assessment Plan Free Text DxA P Notes Free text DxA P notes: Acute pancreatitis Possible due to medications and alcohol HIV Elevated LFTs Intractable abdominal pain Nausea and vomiting Plan Pain control Aggressive hydration with Ringer lactate 250 mL/ h Antinausea medications Serial lipase Monitor LFTs Hydralazine PRN for high blood pressure Address alcohol cessation GI/DVT prophylaxis at 0910 RPT #: [id number] END OF REPORT 2019-06-16 14:04:00-00:00 [facility] ([facility]) EMERGENCY PROVIDER REPORT REPORT#:[id number] REPORT STATUS: Signed DATE:06/16/19 TIME:1404 PATIENT: QUETA DOYLE UNIT #: [id number] ROOM/BED: [place] [id number] : 84 AGE: 34 SEX: M PCP PHYS: No Primar y or Family Physician SERVICE AUTHOR: Jasmina Judd MD * ALL edits or amendments must be made on the el [employer]/computer document * HPI-Abd Pain M Under 40 General Initial Greet Date/Time 06/16/19 1330 Presentation Chief Complaint Abdominal pain Hx Obtained From Patient Onset Occurred Days ago (3) Symptom Duration Since onset, Constant Progression since Onset Gradually worsening Caused by No trauma by history Location Periumbilical Quality Aching Radiation Does not radiate. Migration/Movement None Severity: Current Pain level 8 out of 10 Associated with Denies: Nausea, Vomiting. Associated Other Pt denies other symptoms Exacerbated by Nothing Relieved by Nothing tried Free Text HPI Notes Free Text HPI Notes 34yo AAM with PMH of HIV (un detected) and EtOH pancreatitis p/w abdominal pain x 3 days. Associated with N/V and inability to tasha erate PO intake. Pain rated 8 out of 10 on pain scale. No meds taken prior to coming to the ER. Symptoms similar to previous episode of pancreatitis. Risk-Abd Pain M Under 40 )( Torsion Risk factors reviewed, No risk factor s Review of Systems ROS Statements All systems rev neg except as marked. Focused Review of Systems Constitutional Denies: Chills, Fever, Lethargy. Respiratory Denies: Cough, non-productive, Cough, productive , Shortness of breath. Cardiovascular Denies: Chest pain, Syncope. GI Reports: Abdominal pain, Nausea, Vomiting. Male Denies: Flank pain, Testicular pain. Musculoskeletal Denies: Back pain, Extremity pain. Additional Review of Systems Eyes Denies: Discharge bilat, Redness bilat, Swelling bilat. Ears/Nose/Throat Denies: Nose bleeding, Sinus problem, Sore throa t. Skin Denies: Abrasion, Swelling, Ulceration. Past Medical History - Adult Stated Complaint ABD PAIN, PANCREATITIS Allergies Coded Allergies: No Known Allergies (05/26/10) Home Medications Discontinued Scripts traMADol (ULTRAM) 50 MG PO Q6H PRN PRN PAIN traMADol (ULTRAM) 50 MG PO Q6H PRN PRN PAIN #20 TABS Prov: 02/21/19 DC: 06/16/19 1335 Patient stopped taking HYDROcodone/APAP (NORCO 5/325) 1 TAB PO Q6H PRN PRN PAIN HYDROcodone/APAP (NORCO 5/325) 1 TAB PO Q6H PRN PRN PAIN #20 TABS Prov: 02/21/19 DC: 06/16/19 1335 Patient stopped taking Reported Medications EFAVIRENZ/EMTRICITAB/TENOFO 600/200/300 MG (ATRI CAMERON) 1 TAB PO BEDTIME Past Medical History: Reports: HIV/AIDS. Additional Medical History HIV Smoking status for patients 13 years old or olde r: Never Smoker Other Social History Local resident, Good social support Physical Exam Vital Signs Vital Signs First Documented: Result Date Time Pulse Ox 99 06/15 1331 B/P 90/65 06/15 1331 B/P Mean 73 06/15 1331 O2 Delivery Room air 06/15 133 Temp 98.1 06/15 1331 Pulse 122 06/15 1331 Resp 17 06/15 1331 Last Documented: Result Date Time Pulse Ox 100 06/15 1600 B/P 144/99 06/15 1600 B/P Mean 114 06/15 1600 Temp 98.0 06/15 1600 Pulse 79 06/15 1600 Resp 16 06/15 1600 O2 Delivery Room air 06/15 1331 Review of Vital Signs Reviewed, Vital signs abno rmal (hypoTN) Focused PE General/Const General/Const Awake, Alert, Well appearing MS Head Head Atraumatic, Normocephalic Eyes Eyes Atraumatic, PERRL Ears/Nose/Throat Ears/Nose/Throat Atraumatic, Airway patent, Muc ous membranes moist, Pharynx NL Resp/Chest Respiratory/Chest Atraumatic, Breath sounds NL, Breath sounds = bilat, No respiratory distress, No rales, No rhonchi, No w heezing Cardiovascular Cardiovascular Heart rate NL, Regular rhythm, H eart sounds NL, Peripheral circulation NL Abdomen/GI Abdomen/GI Soft, Non-tender, McBurney's non-ten kuldip, No guarding, No rebound, BS normoactive, No distention, No hernia, No pal pable mass MS Back Back Inspection NL, Non-tender, No CVA tenderne ss Skin Skin Color NL, Warm, Dry, Turgor NL Genitourinary Male Genitourinary Inspection NL, Penis NL, No penile discharge, Testes NL, Epididymis NL, No mass, No hernia, No lesions or rash Neurologic Neurologic Oriented X3, Speech NL, No motor def icits, No sensory deficits Interpretation Diagnostics Lab Results Interpretation Results Laboratory Tests 06/16/19 1336: [Embedded Image Not Available] Laboratory Tests: 06/16 1335 Chemistry Sodium (134 - 147 mmol/L) 138 Potassium (3.4 - 5.0 mmol/L) 3.5 Chloride (100 - 108 mmol/L) 104 Carbon Dioxide (21 - 32 mmol/L) 26 Anion Gap (4.0 - 15.0 GAP calc) 8.0 BUN (7 - 18 MG/DL) 11 Creatinine (0.8 - 1.3 MG/DL) 0.9 Glomerular Filtr Rate (>60 estGFR) >=60 max est imate Glucose (70 - 110 MG/DL) 148 H Calcium (8.5 - 10.1 MG/DL) 9.5 Total Bilirubin (0.2 - 1.2 MG/DL) 1.30 H AST (15 - 37 Unit/L) 42 H ALT (12 - 78 Unit/L) 35 Total Alk Phosphatase (50 - 136 Unit/L) 82 Total Protein (6.4 - 8.2 G/DL) 9.2 H Albumin (3.4 - 5.0 G/DL) 4.0 Globulin (GM/dL) 5.2 Albumin/Globulin Ratio (1.2 - 2.2 RATIO) 0.8 L Lipase (114 - 286 Unit/L) 2019 H Hematology WBC (3.5 - 11.0 K/mm3) 12.5 H RBC (4.70 - 6.10 M/mm3) 4.59 L Hgb (12.3 - 15.9 G/DL) 14.0 Hct (35.8 - 46.7 %) 40.1 MCV (86.3 - 98.9 Fl) 87.4 MCH (28.9 - 34.4 pg) 30.5 MCHC (32.1 - 34.5 G/DL) 34.9 H RDW (11.5 - 14.5 SD) 12.7 Plt Count (150 - 450 K/mm3) 209.0 MPV (7.0 - 9.6 fL) 10.90 H Neut % (Auto) (40 - 76 %) 84.7 H Lymph % (Auto) (20.5 - 51.1 %) 7.4 L [place] % (Auto) (1.7 - 9.3 %) 7.8 Eos % (Auto) (0.0 - 6.0 %) 0.0 Baso % (Auto) (0.0 - 2.0 %) 0.1 Neut # (Auto) (1.8 - 7.6 K/mm3) 10.61 H Lymph # (Auto) (0.6 - 3.0 K/mm3) 0.9 [place] # (Auto) (0.2 - 1.5 K/mm3) 1.0 Eos # (Auto) (0.0 - 0.4 K/mm3) 0.0 Baso # (Auto) (0.0 - 0.2 K/mm3) 0.0 Add Manual Diff (CRITERIA DIFF/SCN) NO Toxicology Ethyl Alcohol (0 - 10 MG/DL) < 3 Microbiology: Date/Time Procedure - Status Source Growth 06/15 1616 MRSA Screen - ORD NASAL Lab Statement Laboratory studies reviewed and considered in medical decision-making. Re-Evaluation MDM Free Text MDM Notes Free Text MDM Notes A/P: 34yo AAM with PMH as ab ove p/w Bhavesh pain and intractable nausea vomiting 1. Labs 2. Pain meds 3. IV fluids 4. Reassess ADDENDUM Time: 1614 Labs significant for elevated lipase (). Pt re-assessed; symptoms improved. Offered outpatient treatment, however patient feels uncomfortable at this time given chronicity o f symptoms. Case d/w Aurelio (hospitalist); admission accepted. Orders to be placed by admitting team. )( Re-Evaluation/Progress #1 Time of Re-Eval 1614 )( Re-Eval Status Improved Re-Eval Abdomen Soft, Non-tender Plan Post Re-Eval Plan admit ED Course Medication(s) Ordered Medication(s) Ordered: Central Nervous System Agents Sig/Sydney Start time Last Medication Dose Route Stop Time Status Admin Acetaminophen 650 MG Q4H PRN PRN 06/15 1615 AC PO 07/15 1614 Hydrocodone Bitart/ 1 TAB Q4H PRN PRN 06/15 161 5 AC Acetaminophen PO 06/25 161 Hydrocodone Bitart/ 1 TAB Q4H PRN PRN 06/15 161 5 AC Acetaminophen PO 06/25 1614 Morphine Sulfate 2 MG Q3H PRN PRN 06/15 161 AC IV 06/25 161 Morphine Sulfate 4 MG Q3H PRN PRN 06/15 161 AC IV 06/25 1614 Morphine Sulfate 4 MG X1ED STA 06/15 1343 DC IV 06/15 1344 1346 Electrolytic, Caloric, And Parisa Sig/Syd[place] Start time Last Medication Dose Route Stop Time Status Admin Dextrose/Sodium 1,000 ML .[id number] 06/15 1615 AC / Chloride IV 06/16 1515 1634 Sodium Chloride 1,000 ML STAT STA 06/15 1333 DC 06/15 IV 06/15 1334 1339 Gastrointestinal Drugs Sig/Sydney Start time Last Medication Dose Route Stop Time Status Admin Docusate Sodium 100 MG Q12H PRN PRN 06/15 1615 AC PO 07/15 1614 Ondansetron HCl 4 MG Q4H PRN PRN 06/15 1615 AC IV 07/15 1614 Ondansetron HCl 4 MG X1ED STA 06/15 1527 DC IV 06/15 1528 1544 Differential Diagnosis Differential Diagnosis Acute abdominal pain, Cortney endicitis, Cholelithiasis, Constipation Patient Discharge Departure Vital Signs/Condition Vital Signs First Documented: Result Date Time Pulse Ox 99 06/15 1331 B/P 90/65 06/15 1331 B/P Mean 73 06/15 1331 O2 Delivery Room air 06/15 1331 Temp 98.1 06/15 1331 Pulse 122 06/15 1331 Resp 17 06/15 1331 Last Documented: Result Date Time Pulse Ox 100 06/15 1600 B/P 144/99 06/15 1600 B/P Mean 114 06/15 1600 Temp 98.0 06/15 1600 Pulse 79 06/15 1600 Resp 16 06/15 1600 O2 Delivery Room air 0510 1331 All vital signs available at the time of this en try have been reviewed. Condition Guarded Clinical Impression Clinical Impression Primary Impression: Pancreatitis Secondary Impressions: Abdominal pain, Intractab le nausea and vomiting Disposition Decision Admit Admit Physician Name Matthew Carey MD Admit Physician Hospitalist Request Time 161 Request Date 06/16/19 )( Admission Accepts Yes )( Accepted Time 161 )( Accepted Date 06/16/19 Call Information will see patient Discharge/Care Plan Counseled Regarding Diagnosis, Lab results, Need for admission Referrals No Primary or Family Physician (PCP/Family) Admit Note I have spoken with the patie nt and/or caregivers. I have explained the patient's condition, diagnoses and zenia atment plan based on the information available to me at this time. I have answered the patient's and/ or caregiver's questions and addressed any concerns. The patient and/or careg musa have as good an understanding of the patient 's diagnosis, condition and treatment plan as can be expected at this point. The patient has been stabilized within the capability of the emergency department. The patient wi ll be transported for further care and management or will be moved to an observation or inpatient service. I have communicated with the staff or medical p candida taking over this patient's care. at 1644 [facility] #: [phone] END OF REPORT 2019-02-21 14:22:00-00:00 [facility] ([facility]) Hospitalist Discharge Summary REPORT#:[id number] REPORT STATUS: Signed DATE:02/21/19 TIME:1421 PATIENT: QUETA DOYLE UNIT #: [id number] ROOM/BED: [place] [address] : 84 AGE: 34 SEX: M ATTEND: Bonny Porter MD ADM AUTHOR: Kaitlin Porter MD * ALL edits or amendments must be made on the [employer]/computer document * PCP PCP PCP: PCP: Vaughn Bryant NP Discharge to: home General Information Date of admission: Observation Start Date: 02/18/19 Date of admission: 02/19/19 Discharge date: 02/21/19 Discharge diagnosis: SEE HOSP COURSE Hospital course: HOSP COURSE This is a 34 years old male with history of HIV that diagnosed 14 years ago, on antiviral medication (Atripla), history of pancreatitis 2017, who presented to the emergency room for evaluation of abdominal p ain 1. Acute pancreatitis likely alcohol related Triglyceride within normal Pain control- IV Zofran as needed started clears, advance diet as tolerated IVF GI prophylaxis Consulted GI, appreciate recs Patient counseled regarding cessation of alcohol use even in small amount 2. HIV According to him his last test virus was undetec table 3. DVT prophylaxis with Lovenox diet advanced- tolerated regular diet dc home stable dc darline e 33 mins Pt. condition on discharge: improved, stable Med Rec Med Rec Discharge meds: Continue taking these medications: EFAVIRENZ/EMTRICITAB/TENOFO 600/200/300 MG (ATRI CAMERON) 1 TAB TAB 1 TABLET ORAL BEDTIME. Start taking the following new medications: traMADol (ULTRAM) 50 MG TAB 50 MILLIGRAM ORAL EVERY 6 HOURS NEEDED. as n eeded for PAIN Qty = 20 No Refills Discharge Instructions Activity: as tolerated Additional instructions: fup with PCP 3-5 days Prescriptions: on chart Discharge management: greater than 30 mins Follow-up Appointments PCP: PCP: Undefined Provider Follow up timeframe: In 1-2 weeks Consulting provider 1: Provider 1: Radha Murillo MD Specialty: GASTROENTEROLOGY Follow up timeframe: In 1-2 weeks Objective Physical Exam Cardiovascular: normal heart sounds, regular rat e rhythm, no ecotopy, no gallop Respiratory: aerating well, clear to auscultatio n, symmetric expansion Abdomen: tenderness, normal bowel sounds, no dis tention Extremities: no calf tenderness, no clubbing, no cyanosis, no edema Neuro/COLLAR SETTER OVERLOCK: alert, oriented X 3, normal speech Skin: dry, intact Psychiatry: normal affect Electronically Signed by Kaitlin Porter MD on 02/06 07/26 at 1424 RPT #: [id number] END OF REPORT 2019-02-20 15:44:00-00:00 [facility] ([facility] Hospitalist Progress Note REPORT#:[id number] REPORT STATUS: Signed DATE:02/20/19 TIME:1544 PATIENT: QUETA DOYLE UNIT #: [id number] ROOM/BED: [place] [address] : 84 AGE: 34 SEX: M ATTEND: Bonny Porter MD ADM AUTHOR: Kaitlin Porter MD * ALL edits or amendments must be made on the [employer]/computer document * Subjective Chief Complaint: abd pain better Review of Systems Respiratory: Denies: SOB. Cardiovascular: Denies: chest pain. Objective General VS/I O: Vital Signs: Date Time Temp Pulse Resp B/P B/P Pulse O2 O2 F low FiO2 Mean Ox Delivery Rate 02/20 1137 37.2 89 18 132/68 89.7 98 Room air 02/20 0807 36.9 84 18 140/98 112.0 100 Room air 02/20 0346 37.1 86 18 141/90 107.2 98 02/19 2324 37.5 75 18 141/97 112.0 99 02/19 1925 37.4 74 18 149/91 110.6 100 02/19 1554 37.0 80 16 155/99 117.8 100 Room air 24 hour I O ending at 0700: 02/20 0700 02/19 1900 Intake Total 250 Output Total Balance 250 Intake, Oral 250 Number Voids 2 Patient Weight Weight (lb): Weight (oz): Weight (kg): 65.909 Physical Exam General appearance: alert, awake Cardiovascular: normal heart sounds, regular rat e rhythm, no ecotopy, no gallop Respiratory: aerating well, clear to auscultatio n, symmetric expansion Abdomen: tenderness, normal bowel sounds, no dis tention Extremities: no calf tenderness, no clubbing, no cyanosis, no edema Neuro/COLLAR SETTER OVERLOCK: alert, oriented X 3, normal speech Skin: dry, intact Psychiatry: normal affect Diagnosis, Assessment Plan Free Text DxA P Notes Free Text DxA P Notes: This is a 34 years old male with history of HIV that diagnosed 14 years ago, on antiviral medication (Atripla), history of pancreatitis 2018, who presented to the emergency room for evaluation of abdominal p ain started yesterday 1. Acute pancreatitis likely alcohol related Triglyceride within normal Pain control- IV Zofran as needed started clears, advance diet as tolerated IVF GI prophylaxis Consulted GI, appreciate recs Patient counseled regarding cessation of alcohol use even in small amount 2. HIV According to him his last test virus was undetec table 3. DVT prophylaxis with Lovenox advacnce diet, if tolerates regular diet dc in a m Electronically Signed by Kaitlin Porter MD on 02/06 06/25 at 1546 RPT #: [id number] END OF REPORT 2019-02-20 09:56:00-00:00 [id number] [address] PATIENT NAME: QUETA DOYLE ADMIT DATE: 02/19/19 ACCOUNT NO: [id number] ROOM NO: [facility] AGE: 34 REPORT TYPE: OPERATIVE REPORT SEX: M ADMITTING PHYSICIAN: Kaitlin Porter MD ATTENDING PHYSICIAN: Kaitlin Porter MD OPERATION DATE: 02/19/2019 GI CONSULTATION NOTE ROOM NUMBER: [id number]. REASON FOR CONSULTATION: Pancreatitis. INDICATIONS: Mr. Doyle is a young gentleman who has been having abdominal pain off and on for the last 2 months, especi ally exacerbated by after drinking. He does have regular history of drinking of alcohol . Denies any hematemesis, melena, hematochezia had sherri e self-limited nausea and vomiting. After coming to the hospital, he is feeling better. Abdominal pa in is located in her epigastrium radiating to the back, exacerbated b y alcohol intake, typically sometimes also food. Denies any fever or chills. Denies any family history of pancreatitis. PAST MEDICAL HISTORY: Generally healthy. PAST SURGICAL HISTORY: Not related to above. FAMILY HISTORY: Denies any g astrointestinal malignancy or chronic pancreatitis. SOCIAL HISTORY: As elaborated above. ALLERGIES: REVIEWED IN THE CHART. MEDICATIONS: Reviewed in the chart. REVIEW OF SYSTEMS: GENERAL: Denies any fever, chills, anorexia, or travel history. GASTROINTESTINAL: As elaborated above. HEPATOLOGIC: Denies any history of jaundice, hep atitis, or any other liver issues are known to him. PULMONARY: No shortness of breath, cough, or exp ectoration. CARDIAC: No palpitation or heart murmur. No orth opnea or dyspnea. MUSCULOSKELETAL: No arthralgia or myalgia. Can m ove all of his extremities. DERMATOLOGIC: No complaint. NEUROPSYCHIATRIC: None. NEUROENDOCRINE: None. LYMPHORETICULAR: None. PATIENT NAME: QUETA DOYLE 888 PHYSICAL EXAMINATION: GENERAL: Young male at this time, no acute distr ess noted. Hemodynamic respiratory profile within normal range. HEENT: Atraumatic and normocephalic. No temporal wasting. No facial wasting. Mucosa is moist. No icterus. No pallor. NECK: Supple. No lymphadenopathy. Trachea is promise tral in position. CHEST: Clear to auscultation and percussion. CARDIOVASCULAR: Normal S1 and S2. No S3. No S4. ABDOMEN: Soft, however, tenderness in the whole right upper quadrant and epigastric area. No rebound tenderness. Bowel so unds are excellent. No hepatomegaly. No splenomegaly. No succussion spl daryl. EXTREMITIES: Upper and lower extremities are nor mal, symmetrical. NEUROLOGIC: Alert and oriented x3. Intact memory , mentation, and judgment. Can move all parts of extremities without any ot her problems. DIAGNOSTIC DATA AND RADIOLOGIC DATA: Reviewed. C T scan bulky pancreas noted consistent with pancreatitis. Blood test also sh ows his lipase is in the 3000 range. IMPRESSION, PLAN, AND RECOMMENDATIONS: Mr. Santos hodges is a young gentleman with what appears to be acute lawrence creatitis, probably related to alcohol since he does not have any other exacerbat ing factor. Therefore, the treatment and prevention of the: 1. Stopping alcohol. 2. Stopping alcohol. 3. Stopping alcohol. 4. Admit to the hospital, volume internal medicine specialist pain m anagement, fluid and electrolyte management. 5. Early production of clear liquid diet and adv ancing from there. I had a long discussion with the patient regardi ng his management and I have emphasized that he needs to stop alcohol and how is his management, he readily agrees. He states that he is motivated and he wi ll do that. For the time being, we will have to treat him wi th volume internal medicine specialist. At this time, I do not see a ny need for any other intervention on the left side ____ to be elevated and he d evelops new symptoms. If his course changes, let me know. Dictated By: Radha Murillo MD WT: OP:L.LORE/JATINDER/NTS Conf#: [id number]/DID#: [id number] Authenticated by Radha Murillo MD On 02/21/2019 07:22:52 AM at 0723 PATIENT NAME: QUETA DOYLE 888 2019-02-20 09:56:00-00:00 [id number] [address] PATIENT NAME: QUETA DOYLE ADMIT DATE: 02/19/19 ACCOUNT NO: [id number] ROOM NO: [facility] AGE: 34 REPORT TYPE: CONSULTATION SEX: M ADMITTING PHYSICIAN: Kaitlin Porter MD ATTENDING PHYSICIAN: Kaitlin Porter MD CONSULTATION DATE: 02/19/2019 CONSULTING PHYSICIAN: Radha Murillo MD GI CONSULTATION NOTE ROOM NUMBER: [id number]. REASON FOR CONSULTATION: Pancreatitis. INDICATIONS: Mr. Doyle is a young gentleman who has been having abdominal pain off and on for the last 2 months, especi ally exacerbated by after drinking. He does have regular history of drinking of alcohol . Denies any hematemesis, melena, hematochezia had sherri e self-limited nausea and vomiting. After coming to the hospital, he is feeling better. Abdominal pa in is located in her epigastrium radiating to the back, exacerbated b y alcohol intake, typically sometimes also food. Denies any fever or chills. Denies any family history of pancreatitis. PAST MEDICAL HISTORY: Generally healthy. PAST SURGICAL HISTORY: Not related to above. FAMILY HISTORY: Denies any g astrointestinal malignancy or chronic pancreatitis. SOCIAL HISTORY: As elaborated above. ALLERGIES: REVIEWED IN THE CHART. MEDICATIONS: Reviewed in the chart. REVIEW OF SYSTEMS: GENERAL: Denies any fever, chills, anorexia, or travel history. GASTROINTESTINAL: As elaborated above. HEPATOLOGIC: Denies any history of jaundice, hep atitis, or any other liver issues are known to him. PULMONARY: No shortness of breath, cough, or exp ectoration. CARDIAC: No palpitation or heart murmur. No orth opnea or dyspnea. MUSCULOSKELETAL: No arthralgia or myalgia. Can m ove all of his extremities. DERMATOLOGIC: No complaint. NEUROPSYCHIATRIC: None. NEUROENDOCRINE: None. PATIENT NAME: QUETA DOYLE 888 LYMPHORETICULAR: None. PHYSICAL EXAMINATION: GENERAL: Young male at this time, no acute distr ess noted. Hemodynamic respiratory profile within normal range. HEENT: Atraumatic and normocephalic. No temporal wasting. No facial wasting. Mucosa is moist. No icterus. No pallor. NECK: Supple. No lymphadenopathy. Trachea is promise tral in position. CHEST: Clear to auscultation and percussion. CARDIOVASCULAR: Normal S1 and S2. No S3. No S4. ABDOMEN: Soft, however, tenderness in the whole right upper quadrant and epigastric area. No rebound tenderness. Bowel so unds are excellent. No hepatomegaly. No splenomegaly. No succussion spl daryl. EXTREMITIES: Upper and lower extremities are nor mal, symmetrical. NEUROLOGIC: Alert and oriented x3. Intact memory , mentation, and judgment. Can move all parts of extremities without any ot her problems. DIAGNOSTIC DATA AND RADIOLOGIC DATA: Reviewed. C T scan bulky pancreas noted consistent with pancreatitis. Blood test also sh ows his lipase is in the 3000 range. IMPRESSION, PLAN, AND RECOMMENDATIONS: Mr. Santos hodges is a young gentleman with what appears to be acute lawrence creatitis, probably related to alcohol since he does not have any other exacerbat ing factor. Therefore, the treatment and prevention of the: 1. Stopping alcohol. 2. Stopping alcohol. 3. Stopping alcohol. 4. Admit to the hospital, volume internal medicine specialist pain m anagement, fluid and electrolyte management. 5. Early production of clear liquid diet and adv ancing from there. I had a long discussion with the patient regardi ng his management and I have emphasized that he needs to stop alcohol and how is his management, he readily agrees. He states that he is motivated and he wi ll do that. For the time being, we will have to treat him wi th volume internal medicine specialist. At this time, I do not see a ny need for any other intervention on the left side ____ to be elevated and he d evelops new symptoms. If his course changes, let me know. CORRECTED 02/26/2019 NM Dictated By: Radha Murillo MD WT: CON:L.HIM/MEANI/NTS Conf#: [id number]/DID#: [id number] Authenticated by Radha Murillo MD On 02/27/2019 07:47:49 AM PATIENT NAME: QUETA DOYLE 0888 at 0748 PATIENT NAME: QUETA DOYLE 888 2019-02-19 12:12:00-00:00 [facility] ([facility]) Hospitalist Progress Note REPORT#:[id number] REPORT STATUS: Signed DATE:02/19/19 TIME:1212 PATIENT: QUETA DOYLE UNIT #: [id number] ROOM/BED: [place] [address] : 84 AGE: 34 SEX: M ATTEND: Stef Tanner MD ADM AUTHOR: Kaitlin Porter MD * ALL edits or amendments must be made on the el [employer]/computer document * Subjective Chief Complaint: Has abdominal pain 08/15 Still n.p.o., would like some ice Review of Systems Respiratory: Denies: SOB. Cardiovascular: Denies: chest pain. Objective General VS/I O: Vital Signs: Date Time Temp Pulse Resp B/P B/P Pulse O2 O2 F low FiO2 Mean Ox Delivery Rate 02/19 1058 36.9 66 16 152/98 115.7 99 Room air 02/19 0756 36.9 68 16 142/97 0.0 99 Room air 02/19 0459 36.9 58 18 160/95 117.1 98 Room air 02/19 0016 36.8 75 18 146/94 111.2 98 Nasal cannula 02/18 1909 36.7 49 18 159/96 117.1 100 Room air 02/18 1806 36.6 52 14 153/88 109.6 100 02/18 1751 35.8 56 18 151/87 108 100 Room air 02/18 1451 36.9 69 18 138/95 109 100 Room air 24 hour I O ending at 0700: 02/19 0700 02/18 1900 Intake Total 150.00 1000.00 Output Total Balance 150.00 1000.00 Intake, IV 150.00 1000.00 Patient 65.909 kg Weight Weight Stated/Reported Measurement Method Patient Weight Weight (lb): Weight (oz): Weight (kg): 65.909 Physical Exam General appearance: alert, awake Cardiovascular: normal heart sounds, regular rat e rhythm, no ecotopy, no gallop Respiratory: aerating well, clear to auscultatio n, symmetric expansion Abdomen: tenderness, normal bowel sounds, no dis tention Extremities: no calf tenderness, no clubbing, no cyanosis, no edema Neuro/COLLAR SETTER OVERLOCK: alert, oriented X 3, normal speech Skin: dry, intact Psychiatry: normal affect Results Findings/Data: Laboratory Tests 02/19 02/18 02/18 0330 2042 1700 Chemistry Sodium (134 - 147 mmol/L) 136 Potassium (3.4 - 5.0 mmol/L) 3.5 Chloride (100 - 108 mmol/L) 103 Carbon Dioxide (21 - 32 mmol/L) 26 Anion Gap (4.0 - 15.0 GAP calc) 7.0 BUN (7 - 18 MG/DL) 5 L Creatinine (0.8 - 1.3 MG/DL) 0.6 L Glomerular Filtr Rate (>60 estGFR) >=60 max est imate Glucose (70 - 110 MG/DL) 105 Calcium (8.5 - 10.1 MG/DL) 8.4 L Total Bilirubin (0.2 - 1.2 MG/DL) 1.20 AST (15 - 37 Unit/L) 13 L ALT (12 - 78 Unit/L) 20 Total Alk Phosphatase (50 - 136 Unit/L) 57 Troponin I (0.000 - 0.045 NG/ML) < 0.015 < 0.01 5 Total Protein (6.4 - 8.2 G/DL) 7.6 Albumin (3.4 - 5.0 G/DL) 3.6 Globulin (GM/dL) 4.0 Albumin/Globulin Ratio (1.2 - 2.2 RATIO) 0.9 L Triglycerides (0 - 150 MG/DL) 63 Cholesterol (133 - 200 MG/DL) 109 L LDL Cholesterol [place] (0 - 129 MG/DL) 30 Non-HDL Cholesterol (<130 mg/dL) 42 HDL Cholesterol (40 - 59 MG/DL) 67 H LDL/HDL Ratio (1.48 - 3.22 Avg Ratio) 0.44 L Cholesterol/HDL Ratio (0 RATIO) 1.63 Lipase (114 - 286 Unit/L) 3097 H 02/18 1230 Chemistry Sodium (134 - 147 mmol/L) 140 Potassium (3.4 - 5.0 mmol/L) 3.5 Chloride (100 - 108 mmol/L) 107 Carbon Dioxide (21 - 32 mmol/L) 28 Anion Gap (4.0 - 15.0 GAP calc) 5.0 BUN (7 - 18 MG/DL) 8 Creatinine (0.8 - 1.3 MG/DL) 0.8 Glomerular Filtr Rate (>60 estGFR) >=60 max est imate Glucose (70 - 110 MG/DL) 103 Calcium (8.5 - 10.1 MG/DL) 8.6 Total Bilirubin (0.2 - 1.2 MG/DL) 1.30 H Direct Bilirubin (0.00 - 0.30 MG/DL) 0.40 H Indirect Bilirubin (0.2 - 1.2 MG/DL) 0.90 AST (15 - 37 Unit/L) 23 ALT (12 - 78 Unit/L) 21 Total Alk Phosphatase (50 - 136 Unit/L) 55 Troponin I (0.000 - 0.045 NG/ML) < 0.015 Total Protein (6.4 - 8.2 G/DL) 7.4 Albumin (3.4 - 5.0 G/DL) 3.8 Lipase (114 - 286 Unit/L) 1963 H Laboratory Tests 02/19 0330 Coagulation INR (0.8 - 1.2 INR Unit) 1.10 PT Patient/Control Mix (9.3 - 12.9 SECONDS) 12. 4 Laboratory Tests 02/19 02/18 0330 1230 Hematology WBC (3.5 - 11.0 K/mm3) 10.8 6.9 RBC (4.70 - 6.10 M/mm3) 4.07 L 3.92 L Hgb (12.3 - 15.9 G/DL) 13.3 12.7 Hct (35.8 - 46.7 %) 36.4 35.1 L MCV (86.3 - 98.9 Fl) 89.4 89.5 MCH (28.9 - 34.4 pg) 32.7 32.4 MCHC (32.1 - 34.5 G/DL) 36.5 H 36.2 H RDW (11.5 - 14.5 SD) 12.8 12.8 Plt Count (150 - 450 K/mm3) 165.0 169.0 MPV (7.0 - 9.6 fL) 11.70 H 10.80 H Neut % (Auto) (40 - 76 %) 89.2 H 75.1 Lymph % (Auto) (20.5 - 51.1 %) 5.0 L 11.4 L [place] % (Auto) (1.7 - 9.3 %) 5.5 7.9 Eos % (Auto) (0.0 - 6.0 %) 0.2 5.3 Baso % (Auto) (0.0 - 2.0 %) 0.1 0.3 Neut # (Auto) (1.8 - 7.6 K/mm3) 9.60 H 5.21 Lymph # (Auto) (0.6 - 3.0 K/mm3) 0.5 L 0.8 [place] # (Auto) (0.2 - 1.5 K/mm3) 0.6 0.6 Eos # (Auto) (0.0 - 0.4 K/mm3) 0.0 0.4 Baso # (Auto) (0.0 - 0.2 K/mm3) 0.0 0.0 Add Manual Diff (CRITERIA DIFF/SCN) NO NO Laboratory Tests 02/18 1230 Toxicology Urine Opiates Screen (<2000 NG/ML SCcutoff) NEG ATIVE Urine Methadone Screen (<300 NG/ML SCcutoff) NE GATIVE Urine Barbiturates (<200 NG/ML SCcutoff) NEGATI VE Ur Phencyclidine Scrn (<25 NG/ML SCcutoff) NEG ATIVE Ur Amphetamines Screen (<1000 NG/ML SCcutoff) N EGATIVE U Benzodiazepines Scrn (<200 NG/ML SCcutoff) NE GATIVE Urine Cocaine Screen (<300 NG/ML SCcutoff) NEGA TIVE Urine Cannabinoids (<50 NG/ML SCcutoff) NEGATIV E Laboratory Tests 02/18 1230 Urines Urine Color (YEL/STRAW discript) YELLOW Urine Appearance (CLEAR discript) CLEAR Urine pH (5.0 - 7.0 pH UNITS) 7.0 Ur Specific [place] (1.005 - 1.030 SG) 1.025 Urine Protein (NEG mg/dL) TRACE H Urine Glucose (UA) (NEG mg/dL) NEGATIVE Urine Ketones (NEG mg/dL) NEGATIVE Urine Blood (NEG mg/DL) NEGATIVE Urine Nitrite (NEG SCREEN) NEGATIVE Urine Bilirubin (NEG mg/dL) NEGATIVE Urine Urobilinogen (<2.0 mg/dL) 0.2 Ur Leukocyte Esterase (NEGATIVE Leuk/mcL) NEGAT EITAN Urine RBC (0 - 3 #RBC/HPF) 1-3 Urine WBC (0 - 3 #WBC/HPF) 0-1 Ur Squamous Epith Cells (NONE /HPF) TRACE Urine Bacteria (NONE - TRACE /HPF) NONE SEEN Urine Mucus (NONE SEEN /LPF) 1+ Urine Culture Screen (Culture CHK Criteria) NO, WBC<10 Microbiology Date/Time Procedure - Status Source Growth 02/18 1830 MRSA Screen - COMP NASAL Diagnosis, Assessment Plan Free Text DxA P Notes Free Text DxA P Notes: This is a 34 years old male with history of HIV that diagnosed 14 years ago, on antiviral medication (Atripla), history of pancreatitis 2018, who presented to the emergency room for evaluation of abdominal p ain started yesterday 1. Acute pancreatitis Not sure if it is related to alcohol or anti-HIV medication (Atripla) Triglyceride within normal Pain control-I will use fent anyl for severe pain, as he reports the morphine is not IV Zofran as needed Keep n.p.o. we will do ice chips IV normal saline at 150 mL/h GI prophylaxis Consult GI, as no improvement Patient counseled regarding cessation of alcohol use even in small amount 2. HIV According to him his last test virus was undetec table 3. DVT prophylaxis with Lovenox Electronically Signed by Kaitlin Porter MD on 02/06 05/26 at 1215 RPT #: [id number] END OF REPORT 2019-02-18 17:44:00-00:00 [facility] ([facility]) Hospitalist History Physical REPORT#:[id number] REPORT STATUS: Signed DATE:02/18/19 TIME:1744 PATIENT: QUETA DOYLE UNIT #: [id number] ROOM/BED: [place] [address] : 84 AGE: 34 SEX: M ATTEND: Stef Tanner MD ADM AUTHOR: Roselia Tanner MD * ALL edits or amendments must be made on the el [employer]/computer document * History of Present Illness HPI Chief complaint: Abdominal pain Free Text HPI Notes Free Text HPI Notes: This is a 34 years old male with history of HIV that diagnosed 14 years ago, on antiviral medication (Atripla), history of pancreatitis 2018, who presented to the emergency room for evaluation of abdominal p ain started yesterday. Pain mainly in epigastric area associated with freque nt vomiting no hematemesis no melena no bleeding per rectu m pain is severe he received multiple doses of pain meds in the emergency room. CT scan of the abdomen was done in the emergency room and shows acute pancreatitis also ultrasound of the abdomen was done and shows no cholelithiasis or cholecystitis. According to him, he rarely drinks, his last drink was Monday on lunch and he drank just 1 drink. Denies any history of smokin g or drug use. History Additional medical history: HIV Smoking status for patients 13 years old or olde r: Never Smoker Other social history: Local resident, Good socia l support Medication/Allergy-Vaccine Hx Home Medications: EFAVIRENZ/EMTRICITAB/TENOFO 600/200/300 MG (ATRI CAMERON) 1 TAB PO BEDTIME FAMOTIDINE (PEPCID) 20 MG PO Q12HR FOLIC ACID 1 MG PO DAILY KETOROLAC (TORADOL) 10 MG PO Q6H PRN PRN MODERAT E PAIN MULTIVITAMIN (MULTIPLE VITAMIN) 1 TAB PO DAILY THIAMINE (VITAMIN B-1) 100 MG PO DAILY Allergies: Coded Allergies: No Known Allergies (05/26/10) Review of Systems Free Text ROS Notes: Free Text ROS Notes: 12 point review of system are negative except as in HPI Objective General VS/I O: Vital Signs: Date Time Temp Pulse Resp B/P B/P Pulse O2 O2 F low FiO2 Mean Ox Delivery Rate 02/18 1451 98.5 69 18 138/95 109 100 Room air 02/18 1201 98.2 68 18 152/93 112 99 Room air Patient Weight Weight (lb): Weight (oz): Weight (kg): 65.909 Physical Exam General appearance: alert, awake, oriented Cardiovascular: normal heart sounds, regular rat e rhythm, no ecotopy, no gallop Respiratory: aerating well, clear to auscultatio n, symmetric expansion Abdomen: tenderness, normal bowel sounds, no dis tention Extremities: no calf tenderness, no clubbing, no cyanosis, no edema Neuro/COLLAR SETTER OVERLOCK: alert, oriented X 3, normal speech Results Findings/Data: Laboratory Tests 02/18 02/18 1700 1230 Chemistry Sodium (134 - 147 mmol/L) 140 Potassium (3.4 - 5.0 mmol/L) 3.5 Chloride (100 - 108 mmol/L) 107 Carbon Dioxide (21 - 32 mmol/L) 28 Anion Gap (4.0 - 15.0 GAP calc) 5.0 BUN (7 - 18 MG/DL) 8 Creatinine (0.8 - 1.3 MG/DL) 0.8 Glomerular Filtr Rate (>60 estGFR) >=60 max es timate Glucose (70 - 110 MG/DL) 103 Calcium (8.5 - 10.1 MG/DL) 8.6 Total Bilirubin (0.2 - 1.2 MG/DL) 1.30 H Direct Bilirubin (0.00 - 0.30 MG/DL) 0.40 H Indirect Bilirubin (0.2 - 1.2 MG/DL) 0.90 AST (15 - 37 Unit/L) 23 ALT (12 - 78 Unit/L) 21 Total Alk Phosphatase (50 - 136 Unit/L) 55 Troponin I (0.000 - 0.045 NG/ML) < 0.015 < 0.01 5 Total Protein (6.4 - 8.2 G/DL) 7.4 Albumin (3.4 - 5.0 G/DL) 3.8 Lipase (114 - 286 Unit/L) 1963 H Laboratory Tests 02/18 1230 Hematology WBC (3.5 - 11.0 K/mm3) 6.9 RBC (4.70 - 6.10 M/mm3) 3.92 L Hgb (12.3 - 15.9 G/DL) 12.7 Hct (35.8 - 46.7 %) 35.1 L MCV (86.3 - 98.9 Fl) 89.5 MCH (28.9 - 34.4 pg) 32.4 MCHC (32.1 - 34.5 G/DL) 36.2 H RDW (11.5 - 14.5 SD) 12.8 Plt Count (150 - 450 K/mm3) 169.0 MPV (7.0 - 9.6 fL) 10.80 H Neut % (Auto) (40 - 76 %) 75.1 Lymph % (Auto) (20.5 - 51.1 %) 11.4 L [place] % (Auto) (1.7 - 9.3 %) 7.9 Eos % (Auto) (0.0 - 6.0 %) 5.3 Baso % (Auto) (0.0 - 2.0 %) 0.3 Neut # (Auto) (1.8 - 7.6 K/mm3) 5.21 Lymph # (Auto) (0.6 - 3.0 K/mm3) 0.8 [place] # (Auto) (0.2 - 1.5 K/mm3) 0.6 Eos # (Auto) (0.0 - 0.4 K/mm3) 0.4 Baso # (Auto) (0.0 - 0.2 K/mm3) 0.0 Add Manual Diff (CRITERIA DIFF/SCN) NO Laboratory Tests 02/18 1230 Toxicology Urine Opiates Screen (<2000 NG/ML SCcutoff) NE GATIVE Urine Methadone Screen (<300 NG/ML SCcutoff) NE GATIVE Urine Barbiturates (<200 NG/ML SCcutoff) NEGAT EITAN Ur Phencyclidine Scrn (<25 NG/ML SCcutoff) NEGA TIVE Ur Amphetamines Screen (<1000 NG/ML SCcutoff) N EGATIVE U Benzodiazepines Scrn (<200 NG/ML SCcutoff) NE GATIVE Urine Cocaine Screen (<300 NG/ML SCcutoff) NEGA TIVE Urine Cannabinoids (<50 NG/ML SCcutoff) NEGATIV E Laboratory Tests 02/18 1230 Urines Urine Color (YEL/STRAW discript) YELLOW Urine Appearance (CLEAR discript) CLEAR Urine pH (5.0 - 7.0 pH UNITS) 7.0 Ur Specific [place] (1.005 - 1.030 SG) 1.025 Urine Protein (NEG mg/dL) TRACE H Urine Glucose (UA) (NEG mg/dL) NEGATIVE Urine Ketones (NEG mg/dL) NEGATIVE Urine Blood (NEG mg/DL) NEGATIVE Urine Nitrite (NEG SCREEN) NEGATIVE Urine Bilirubin (NEG mg/dL) NEGATIVE Urine Urobilinogen (<2.0 mg/dL) 0.2 Ur Leukocyte Esterase (NEGATIVE Leuk/mcL) NEGAT EITAN Urine RBC (0 - 3 #RBC/HPF) 1-3 Urine WBC (0 - 3 #WBC/HPF) 0-1 Ur Squamous Epith Cells (NONE /HPF) TRACE Urine Bacteria (NONE - TRACE /HPF) NONE SEEN Urine Mucus (NONE SEEN /LPF) 1+ Urine Culture Screen (Culture CHK Criteria) NO, WBC<10 Radiology data: Recent Impressions: RADIOLOGY - XR CHEST 1 V 02/18 1235 Report Impression - Status: SIGNED Entered: 02/18/2019 1248 IMPRESSION: Lungs are clear. No acute abnormalit y. Impression By: [email or web address] - Liban Proett, M.D. ULTRASOUND - US ABDOMEN LTD 02/18 1350 Report Impression - Status: SIGNED Entered: 02/18/2019 1441 IMPRESSION: No cholelithiasis or evidence of acu te cholecystitis. Impression By: [email or web address] - Liban Palmer M.D. CAT SCAN - CT ABD PELVIS W/CONT 02/18 1510 Report Impression - Status: SIGNED Entered: 02/18/2019 1535 IMPRESSION: Bulky pancreas with peripancreatic inflammatory changes indicative of pancreatitis. Impression By: [email or web address] - Desire Smith M.D. Diagnosis, Assessment Plan Free Text DxA P Notes Free Text DxA P Notes: This is a 34 years old male with history of HIV that diagnosed 14 years ago, on antiviral medication (Atripla), history of pancreatitis 2018, who presented to the emergency room for evaluation of abdominal p ain started yesterday 1. Acute pancreatitis Not sure if it is related to alcohol or anti-HIV medication (Atripla) We will check triglyceride level Pain control IV Zofran as needed Keep n.p.o. IV normal saline at 150 mL/h GI prophylaxis If no improvement by tomorrow consider GI consul t Patient counseled regarding cessation of alcohol use even in small amount 2. HIV According to him his last test virus was undetec table 3. DVT prophylaxis with Lovenox Electronically Signed by Roselia Tanner MD on at 1752 RPT #: [id number] END OF REPORT 2019-02-18 12:13:00-00:00 [facility] ([facility]) EMERGENCY PROVIDER REPORT REPORT#:[id number] REPORT STATUS: Signed DATE:02/18/19 TIME:1213 PATIENT: QUETA DOYLE UNIT #: [id number] ROOM/BED: [place] [address] : 84 AGE: 34 SEX: M PCP PHYS: Lacy Bryant O ACCOUNTS PAYABLE ACCOUNTANT SERVICE AUTHOR: Dunia Valles * ALL edits or amendments must be made on the el [employer]/computer document * HPI-Abd Pain M Under 40 General Confirmed Patient Yes Initial Greet Date/Time 02/18/19 1204 Presentation Chief Complaint Abdominal pain Hx Obtained From Patient Sudden in Onset? Yes Onset Occurred Today Symptom Duration Since onset Progression since Onset Constant Location Diffuse Radiation Does not radiate. Migration/Movement None Severity: Onset Moderate Severity: Current Moderate Associated Other Pt denies other symptoms Exacerbated by Nothing Relieved by Nothing Free Text HPI Notes Free Text HPI Notes 34 y/o M with PMHx of HIV presents to ED c/o diffuse abdominal pain x today at 0200. States he has been bur ping frequently. He has been taking tylenol with no improvement. He is currently on ATRIPLA medicati on. Denies N/V/D. Portions of this section were scribed by Romeo Apodaca on 02/18/19 at 1631 Risk-Abd Pain M Under 40 )( Torsion Risk factors reviewed Portions of this section were scribed by Romeo Apodaca on 02/18/19 at 1213 Review of Systems ROS Statements All systems rev neg except as marked. Focused Review of Systems Constitutional Denies: Chills, Fever, Lethargy. Respiratory Denies: Cough, non-productive, Cough, productive , Shortness of breath. Cardiovascular Denies: Chest pain, Syncope. GI Reports: Abdominal pain. Denies: Diarrhea, Nause a, Vomiting. Male Denies: Flank pain, Testicular pain. Musculoskeletal Denies: Back pain, Extremity pain. Additional Review of Systems Eyes Denies: Blurred bilat, Discharge bilat. Ears/Nose/Throat Denies: Ear drainage bilat, Earache bilat. Hematologic Denies: Bleeding, Bruising. Skin Denies: Laceration, Rash. Portions of this section were scribed by Romeo Apodaca on 02/18/19 at 1213 Past Medical History - Adult Stated Complaint ABDOMINAL PAIN Allergies Coded Allergies: No Known Allergies (05/26/10) Home Medications Discontinued Scripts FAMOTIDINE (PEPCID) 20 MG PO Q12HR FAMOTIDINE (PEPCID) 20 MG PO Q12HR #60 TAB Prov: 11/29/17 DC: 02/18/191812 Patient stopped taking FOLIC ACID 1 MG PO DAILY FOLIC ACID 1 MG PO DAILY #30 TAB Prov: 11/29/17 DC: 02/18/191812 Patient stopped taking THIAMINE (VITAMIN B-1) 100 MG PO DAILY THIAMINE (VITAMIN B-1) 100 MG PO DAILY #30 TAB Prov: 11/29/17 DC: 02/18/191812 Patient stopped taking MULTIVITAMIN (MULTIPLE VITAMIN) 1 TAB PO DAILY MULTIVITAMIN (MULTIPLE VITAMIN) 1 TAB PO DAILY #30 TABS Prov: 11/29/17 DC: 02/18/191812 Patient stopped taking KETOROLAC (TORADOL) 10 MG PO Q6H PRN PRN MODERAT E PAIN KETOROLAC (TORADOL) 10 MG PO Q6H PRN PRN MODERA TE PAIN #20 TABS Prov: 11/29/17 DC: 02/18/191812 Patient stopped taking Reported Medications EFAVIRENZ/EMTRICITAB/TENOFO 600/200/300 MG (ATRI CAMERON) 1 TAB PO BEDTIME Review of Nursing Notes Rev avail, and agree Past Medical History: Reports: HIV/AIDS. Additional Medical History HIV Other Social History Local resident, Good social support Portions of this section were scribed by Romeo Apodaca on 02/18/19 at 1213 Physical Exam Vital Signs Vital Signs First Documented: Result Date Time Pulse Ox 99 02/18 1201 B/P 152/93 02/18 1201 B/P Mean 112 02/18 1201 O2 Delivery Room air 02/18 1201 Temp 36.8 02/18 1201 Pulse 68 02/18 1201 Resp 18 02/18 1201 Last Documented: Result Date Time Pulse Ox 100 02/18 1451 B/P 138/95 02/18 1451 B/P Mean 109 02/18 1451 O2 Delivery Room air 02/18 1451 Temp 36.9 02/18 1451 Pulse 69 02/18 1451 Resp 18 02/18 1451 Review of Vital Signs Reviewed Focused PE General/Const General/Const Awake, Alert, No acute distress MS Head Head Normocephalic Eyes Eyes PERRL, EOMI, No nystagmus Ears/Nose/Throat Ears/Nose/Throat Airway patent, Mucous membrane s moist, Pharynx NL Resp/Chest Respiratory/Chest Breath sounds NL, Breath soun ds = bilat, No respiratory distress Cardiovascular Cardiovascular Heart rate NL, Regular rhythm, H eart sounds NL Abdomen/GI Abdomen/GI Soft, Non-tender, No guarding, No re bound, No distention MS Back Back Inspection NL, Full range of motion, Painl ess range of motion Skin Skin Color NL, No rash, Warm, Dry, Intact Neurologic Neurologic Oriented X3, Speech NL Portions of this section were scribed by Romeo Apodaca on 02/18/19 at 1616 Interpretation Diagnostics Lab Results Interpretation Results Laboratory Tests 02/18/19 1230: [Embedded Image Not Available] Laboratory Tests: 02/18 1230 Chemistry Sodium (134 - 147 mmol/L) 140 Potassium (3.4 - 5.0 mmol/L) 3.5 Chloride (100 - 108 mmol/L) 107 Carbon Dioxide (21 - 32 mmol/L) 28 Anion Gap (4.0 - 15.0 GAP calc) 5.0 BUN (7 - 18 MG/DL) 8 Creatinine (0.8 - 1.3 MG/DL) 0.8 Glomerular Filtr Rate (>60 estGFR) >=60 max est imate Glucose (70 - 110 MG/DL) 103 Calcium (8.5 - 10.1 MG/DL) 8.6 Total Bilirubin (0.2 - 1.2 MG/DL) 1.30 H Direct Bilirubin (0.00 - 0.30 MG/DL) 0.40 H Indirect Bilirubin (0.2 - 1.2 MG/DL) 0.90 AST (15 - 37 Unit/L) 23 ALT (12 - 78 Unit/L) 21 Total Alk Phosphatase (50 - 136 Unit/L) 55 Troponin I (0.000 - 0.045 NG/ML) < 0.015 Total Protein (6.4 - 8.2 G/DL) 7.4 Albumin (3.4 - 5.0 G/DL) 3.8 Lipase (114 - 286 Unit/L) 1963 H Hematology WBC (3.5 - 11.0 K/mm3) 6.9 RBC (4.70 - 6.10 M/mm3) 3.92 L Hgb (12.3 - 15.9 G/DL) 12.7 Hct (35.8 - 46.7 %) 35.1 L MCV (86.3 - 98.9 Fl) 89.5 MCH (28.9 - 34.4 pg) 32.4 MCHC (32.1 - 34.5 G/DL) 36.2 H RDW (11.5 - 14.5 SD) 12.8 Plt Count (150 - 450 K/mm3) 169.0 MPV (7.0 - 9.6 fL) 10.80 H Neut % (Auto) (40 - 76 %) 75.1 Lymph % (Auto) (20.5 - 51.1 %) 11.4 L [place] % (Auto) (1.7 - 9.3 %) 7.9 Eos % (Auto) (0.0 - 6.0 %) 5.3 Baso % (Auto) (0.0 - 2.0 %) 0.3 Neut # (Auto) (1.8 - 7.6 K/mm3) 5.21 Lymph # (Auto) (0.6 - 3.0 K/mm3) 0.8 [place] # (Auto) (0.2 - 1.5 K/mm3) 0.6 Eos # (Auto) (0.0 - 0.4 K/mm3) 0.4 Baso # (Auto) (0.0 - 0.2 K/mm3) 0.0 Add Manual Diff (CRITERIA DIFF/SCN) NO Toxicology Urine Opiates Screen (<2000 NG/ML SCcutoff) NEG ATIVE Urine Methadone Screen (<300 NG/ML SCcutoff) NE GATIVE Urine Barbiturates (<200 NG/ML SCcutoff) NEGATI VE Ur Phencyclidine Scrn (<25 NG/ML SCcutoff) NEGA TIVE Ur Amphetamines Screen (<1000 NG/ML SCcutoff) N EGATIVE U Benzodiazepines Scrn (<200 NG/ML SCcutoff) NE GATIVE Urine Cocaine Screen (<300 NG/ML SCcutoff) NEGA TIVE Urine Cannabinoids (<50 NG/ML SCcutoff) NEGATI VE Urines Urine Color (YEL/STRAW discript) YELLOW Urine Appearance (CLEAR discript) CLEAR Urine pH (5.0 - 7.0 pH UNITS) 7.0 Ur Specific [place] (1.005 - 1.030 SG) 1.025 Urine Protein (NEG mg/dL) TRACE H Urine Glucose (UA) (NEG mg/dL) NEGATIVE Urine Ketones (NEG mg/dL) NEGATIVE Urine Blood (NEG mg/DL) NEGATIVE Urine Nitrite (NEG SCREEN) NEGATIVE Urine Bilirubin (NEG mg/dL) NEGATIVE Urine Urobilinogen (<2.0 mg/dL) 0.2 Ur Leukocyte Esterase (NEGATIVE Leuk/mcL) NEGAT EITAN Urine RBC (0 - 3 #RBC/HPF) 1-3 Urine WBC (0 - 3 #WBC/HPF) 0-1 Ur Squamous Epith Cells (NONE /HPF) TRACE Urine Bacteria (NONE - TRACE /HPF) NONE SEEN Urine Mucus (NONE SEEN /LPF) 1+ Urine Culture Screen (Culture CHK Criteria) NO, WBC<10 Recent Impressions: RADIOLOGY - XR CHEST 1 V 02/18 1235 Report Impression - Status: SIGNED Entered: 02/18/2019 1248 IMPRESSION: Lungs are clear. No acute abnormalit y. Impression By: Ihsan Palmer M.D. ULTRASOUND - US ABDOMEN LTD 02/18 1350 Report Impression - Status: SIGNED Entered: 02/18/2019 1441 IMPRESSION: No cholelithiasis or evidence of acu te cholecystitis. Impression By: Ihsan Palmer M.D. CAT SCAN - CT ABD PELVIS W/CONT 02/18 1510 Report Impression - Status: SIGNED Entered: 02/18/2019 1535 IMPRESSION: Bulky pancreas with peripancreatic inflammatory changes indicative of pancreatitis. Impression By: [email or web address] - Desire Smith M.D. Lab Imaging Statement Laboratory radiographic studies reviewed and con sidered in the medical decision-making. Point of Care Testing Pulse Oximetry Pulse Ox % 99 On: Room air Interpretation Interpreted by me, Pulse oximetr y normal Time 1201 ECG #1 Interpretation ECG Documented in MUSE Yes Date 02/18/19 Time 1303 Interpreted by ED physician NL ECG Interpretation No acute ischemic changes, No STEMI, Normal axis, Normal intervals Rate 52 Rhythm Bradycardia Portions of this section were scribed by Romeo Apodaca on 02/18/19 at 1616 Re-Evaluation MDM )( Re-Evaluation/Progress #1 Time of Re-Eval 1630 )( Re-Eval Status Guarded, stable ED Course Medication(s) Ordered Medication(s) Ordered: Cardiovascular Drugs Sig/[place] Start time Last Medication Dose Route Stop Time Status Admin Lidocaine HCl 10 ML X1ED STA 02/18 1235 DC 02/06 3 PO 02/18 1236 1249 Central Nervous System Agents Sig/[place] Start time Last Medication Dose Route Stop Time Status Admin Acetaminophen 650 MG Q4H PRN PRN 02/18 1645 DC PO 03/20 1644 Hydrocodone Bitart/ 1 TAB Q4H PRN PRN 02/18 164 5 DC Acetaminophen PO 02/28 1644 Hydrocodone Bitart/ 1 TAB Q4H PRN PRN 02/18 164 5 DC Acetaminophen PO 02/28 1644 Ketorolac 30 MG Q6H PRN PRN 02/18 1645 DC Tromethamine IV 02/23 1644 Fentanyl Citrate 100 MCG X1ED STA 02/18 1441 DC 02/18 IV 02/18 1442 1445 Morphine Sulfate 2 MG X1ED STA 02/18 1336 DC IV 02/18 1337 1341 Morphine Sulfate 2 MG X1ED STA 02/18 1313 DC IV 02/18 1314 1317 Ketorolac 15 MG X1ED STA 02/18 1235 DC 02/18 Tromethamine IV 02/18 1236 1250 Diagnostic Agents Sig/[place] Start time Last Medication Dose Route Stop Time Status Admin Iopamidol 0 .STK-MED ONE 02/18 1452 DC 02/18 .ROUTE 1517 Electrolytic, Caloric, And [place] Sig/[place] Start time Last Medication Dose Route Stop Time Status Admin Sodium Chloride 1,000 ML .[id number] 02/18 1645 DC 02/18 IV 02/19 1531 1644 Sodium Chloride 50 ML .STK-MED ONE 02/18 1454 D C 02/18 IV 1517 Sodium Chloride 1,000 ML X1ED STA 02/18 1235 DC 02/18 IV 02/18 1335 1249 Gastrointestinal Drugs Sig/[place] Start time Last Medication Dose Route Stop Time Status Admin Docusate Sodium 100 MG Q12H PRN PRN 02/18 1645 DC PO 03/20 1644 Ondansetron HCl 4 MG Q4H PRN PRN 02/18 1645 AC 02/18 IV 03/20 1644 2035 Metoclopramide HCl 10 MG X1ED STA 02/18 1636 DC 02/18 IV 02/18 1637 1643 Ondansetron HCl 4 MG X1ED STA 02/18 1420 DC IV 02/18 1421 1426 Ondansetron HCl 4 MG X1ED PRN PRN 02/18 1245 DC 02/18 IV 02/19 1244 1250 Al Hydrox/Mg Hydrox/ 30 ML X1ED STA 02/18 1235 DC 02/18 Simethicone PO 02/18 1236 1249 Other Sig/[place] Start time Last Medication Dose Route Stop Time Status Admin Sodium Chloride 10 ML ASDIR 02/18 1645 AC IV 02/19 1531 Portions of this section were scribed by Romeo Apodaca on 02/18/19 at 1631 Patient Discharge Departure Vital Signs/Condition Vital Signs First Documented: Result Date Time Pulse Ox 99 02/18 1201 B/P 152/93 02/18 1201 B/P Mean 112 02/18 1201 O2 Delivery Room air 02/18 1201 Temp 36.8 02/18 1201 Pulse 68 02/18 1201 Resp 18 02/18 1201 Last Documented: Result Date Time Pulse Ox 100 02/18 1451 B/P 138/95 02/18 1451 B/P Mean 109 02/18 1451 O2 Delivery Room air 02/18 1451 Temp 36.9 02/18 1451 Pulse 69 02/18 1451 Resp 18 02/18 1451 All vital signs available at the time of this en try have been reviewed. Condition Guarded, Stable Clinical Impression Clinical Impression Primary Impression: Acute pancreatitis Secondary Impressions: HIV (human immunodeficien cy virus infection) Disposition Decision Admit Admit Physician Name Roselia Tanner MD Admit Physician Hospitalist Request Time 1632 Request Date 02/18/19 )( Admission Accepts Yes )( Accepted Time 1632 )( Accepted Date 02/18/19 Discharge/Care Plan Counseled Regarding Diagnosi s, Lab results, Imaging studies, Need for admission Admit Note I have spoken with the patie nt and/or caregivers. I have explained the patient's condition, diagnoses and zenia atment plan based on the information available to me at this time. I have answered the patient's and/ or caregiver's questions and addressed any concerns. The patient and/or careg musa have as good an understanding of the patient 's diagnosis, condition and treatment plan as can be expected at this point. The patient has been stabilized within the capability of the emergency department. The patient wi ll be transported for further care and management or will be moved to an observation or inpatient service. I have communicated with the staff or medical p ractitioner taking over this patient's care. Supervising Physician Note Scribe Statement Brenda Apodaca, 02/18/19 1213, scribing for a nd in the presence of [GITA Moses]. Signed By: Brenda Apodaca, 02/18/19 1213 Provider Scribed Statement I personally performed the s ervices described in this documentation and reviewed the documentation that was dictated to the scrib e(s) in my presence, and it accurately records my words and actions. Dunia Acosta, 02/19/19 Portions of this section were scribed by Romeo Apodaca on 02/18/19 at 1631 Electronically Signed by Dunia Valles on at 1106 RPT #: [id number] END OF REPORT 2019-02-18 12:13:00-00:00 [facility] ([facility]) EMERGENCY PROVIDER REPORT REPORT#:[id number] REPORT STATUS: Signed DATE:02/18/19 TIME:1212 PATIENT: QUETA DOYLE UNIT #: [id number] ROOM/BED: [place] [address] : [birth year] AGE: 34 SEX: M PCP PHYS: Lacy Bryant ACCOUNTS PAYABLE ACCOUNTANT SERVICE AUTHOR: Dunia Valles * ALL edits or amendments must be made on the el [employer]/computer document * Dunia Valles 02/18/19 1213: HPI-Abd Pain M Under 40 General Confirmed Patient Yes Presentation Chief Complaint Abdominal pain Hx Obtained From Patient Sudden in Onset? Yes Onset Occurred Today Symptom Duration Since onset Progression since Onset Constant Location Diffuse Radiation Does not radiate. Migration/Movement None Severity: Onset Moderate Severity: Current Moderate Associated Other Pt denies other symptoms Exacerbated by Nothing Relieved by Nothing Free Text HPI Notes Free Text HPI Notes 34 y/o M with PMHx of HIV presents to ED c/o diffuse abdominal pain x today at 0200. States he has been bur ping frequently. He has been taking tylenol with no improvement. He is currently on ATRIPLA medicati on. Denies N/V/D. Portions of this section were scribed by Romeo Apodaca on 02/18/19 at 1631 Risk-Abd Pain M Under 40 )( Torsion Risk factors reviewed Portions of this section were scribed by Romeo Apodaca on 02/18/19 at 1213 Review of Systems ROS Statements All systems rev neg except as marked. Focused Review of Systems Constitutional Denies: Chills, Fever, Lethargy. Respiratory Denies: Cough, non-productive, Cough, productive , Shortness of breath. Cardiovascular Denies: Chest pain, Syncope. GI Reports: Abdominal pain. Denies: Diarrhea, Nause a, Vomiting. Male Denies: Flank pain, Testicular pain. Musculoskeletal Denies: Back pain, Extremity pain. Additional Review of Systems Eyes Denies: Blurred bilat, Discharge bilat. Ears/Nose/Throat Denies: Ear drainage bilat, Earache bilat. Hematologic Denies: Bleeding, Bruising. Skin Denies: Laceration, Rash. Portions of this section were scribed by Romeo Apodaca on 02/18/19 at 1213 Past Medical History - Adult Stated Complaint ABDOMINAL PAIN Allergies Coded Allergies: No Known Allergies (05/26/10) Home Medications Discontinued Scripts FAMOTIDINE (PEPCID) 20 MG PO Q12HR FAMOTIDINE (PEPCID) 20 MG PO Q12HR #60 TAB Prov: 11/29/17 DC: 02/18/191812 Patient stopped taking FOLIC ACID 1 MG PO DAILY FOLIC ACID 1 MG PO DAILY #30 TAB Prov: 11/29/17 DC: 02/18/19 181 Patient stopped taking THIAMINE (VITAMIN B-1) 100 MG PO DAILY THIAMINE (VITAMIN B-1) 100 MG PO DAILY #30 TAB Prov: 11/29/17 DC: 02/18/191812 Patient stopped taking MULTIVITAMIN (MULTIPLE VITAMIN) 1 TAB PO DAILY MULTIVITAMIN (MULTIPLE VITAMIN) 1 TAB PO DAILY #30 TABS Prov: 11/29/17 DC: 02/18/191812 Patient stopped taking KETOROLAC (TORADOL) 10 MG PO Q6H PRN PRN MODERAT E PAIN KETOROLAC (TORADOL) 10 MG PO Q6H PRN PRN MODERA TE PAIN #20 TABS Prov: 11/29/17 DC: 02/18/191812 Patient stopped taking Reported Medications EFAVIRENZ/EMTRICITAB/TENOFO 600/200/300 MG (ATRI CAMERON) 1 TAB PO BEDTIME Review of Nursing Notes Rev avail, and agree Past Medical History: Reports: HIV/AIDS. Additional Medical History HIV Other Social History Local resident, Good social support Portions of this section were scribed by Romeo Apodaca on 02/18/19 at 1213 Physical Exam Vital Signs Vital Signs First Documented: Result Date Time Pulse Ox 99 02/18 1201 B/P 152/93 02/18 1201 B/P Mean 112 02/18 1201 O2 Delivery Room air 02/18 1201 Temp 98.2 02/18 1201 Pulse 68 02/18 1201 Resp 18 02/18 1201 Last Documented: Result Date Time Pulse Ox 100 02/18 1451 B/P 138/95 02/18 1451 B/P Mean 109 02/18 1451 O2 Delivery Room air 02/18 1451 Temp 98.5 02/18 1451 Pulse 69 02/18 1451 Resp 18 02/18 1451 Review of Vital Signs Reviewed Focused PE General/Const General/Const Awake, Alert, No acute distress MS Head Head Normocephalic Eyes Eyes PERRL, EOMI, No nystagmus Ears/Nose/Throat Ears/Nose/Throat Airway patent, Mucous membrane s moist, Pharynx NL Resp/Chest Respiratory/Chest Breath sounds NL, Breath soun ds = bilat, No respiratory distress Cardiovascular Cardiovascular Heart rate NL, Regular rhythm, H eart sounds NL Abdomen/GI Abdomen/GI Soft, Non-tender, No guarding, No re bound, No distention MS Back Back Inspection NL, Full range of motion, Painl ess range of motion Skin Skin Color NL, No rash, Warm, Dry, Intact Neurologic Neurologic Oriented X3, Speech NL Portions of this section were scribed by Romeo Apodaca on 02/18/19 at 1616 Interpretation Diagnostics Lab Results Interpretation Results Laboratory Tests 02/18/19 1230: [Embedded Image Not Available] Laboratory Tests: 02/18 1230 Chemistry Sodium (134 - 147 mmol/L) 140 Potassium (3.4 - 5.0 mmol/L) 3.5 Chloride (100 - 108 mmol/L) 107 Carbon Dioxide (21 - 32 mmol/L) 28 Anion Gap (4.0 - 15.0 GAP calc) 5.0 BUN (7 - 18 MG/DL) 8 Creatinine (0.8 - 1.3 MG/DL) 0.8 Glomerular Filtr Rate (>60 estGFR) >=60 max est imate Glucose (70 - 110 MG/DL) 103 Calcium (8.5 - 10.1 MG/DL) 8.6 Total Bilirubin (0.2 - 1.2 MG/DL) 1.30 H Direct Bilirubin (0.00 - 0.30 MG/DL) 0.40 H Indirect Bilirubin (0.2 - 1.2 MG/DL) 0.90 AST (15 - 37 Unit/L) 23 ALT (12 - 78 Unit/L) 21 Total Alk Phosphatase (50 - 136 Unit/L) 55 Troponin I (0.000 - 0.045 NG/ML) < 0.015 Total Protein (6.4 - 8.2 G/DL) 7.4 Albumin (3.4 - 5.0 G/DL) 3.8 Lipase (114 - 286 Unit/L) 1963 H Hematology WBC (3.5 - 11.0 K/mm3) 6.9 RBC (4.70 - 6.10 M/mm3) 3.92 L Hgb (12.3 - 15.9 G/DL) 12.7 Hct (35.8 - 46.7 %) 35.1 L MCV (86.3 - 98.9 Fl) 89.5 MCH (28.9 - 34.4 pg) 32.4 MCHC (32.1 - 34.5 G/DL) 36.2 H RDW (11.5 - 14.5 SD) 12.8 Plt Count (150 - 450 K/mm3) 169.0 MPV (7.0 - 9.6 fL) 10.80 H Neut % (Auto) (40 - 76 %) 75.1 Lymph % (Auto) (20.5 - 51.1 %) 11.4 L [place] % (Auto) (1.7 - 9.3 %) 7.9 Eos % (Auto) (0.0 - 6.0 %) 5.3 Baso % (Auto) (0.0 - 2.0 %) 0.3 Neut # (Auto) (1.8 - 7.6 K/mm3) 5.21 Lymph # (Auto) (0.6 - 3.0 K/mm3) 0.8 [place] # (Auto) (0.2 - 1.5 K/mm3) 0.6 Eos # (Auto) (0.0 - 0.4 K/mm3) 0.4 Baso # (Auto) (0.0 - 0.2 K/mm3) 0.0 Add Manual Diff (CRITERIA DIFF/SCN) NO Toxicology Urine Opiates Screen (<2000 NG/ML SCcutoff) NEG ATIVE Urine Methadone Screen (<300 NG/ML SCcutoff) NE GATIVE Urine Barbiturates (<200 NG/ML SCcutoff) NEGATI VE Ur Phencyclidine Scrn (<25 NG/ML SCcutoff) NEGA TIVE Ur Amphetamines Screen (<1000 NG/ML SCcutoff) N EGATIVE U Benzodiazepines Scrn (<200 NG/ML SCcutoff) NE GATIVE Urine Cocaine Screen (<300 NG/ML SCcutoff) NEGA TIVE Urine Cannabinoids (<50 NG/ML SCcutoff) NEGATIV E Urines Urine Color (YEL/STRAW discript) YELLOW Urine Appearance (CLEAR discript) CLEAR Urine pH (5.0 - 7.0 pH UNITS) 7.0 Ur Specific [place] (1.005 - 1.030 SG) 1.025 Urine Protein (NEG mg/dL) TRACE H Urine Glucose (UA) (NEG mg/dL) NEGATIVE Urine Ketones (NEG mg/dL) NEGATIVE Urine Blood (NEG mg/DL) NEGATIVE Urine Nitrite (NEG SCREEN) NEGATIVE Urine Bilirubin (NEG mg/dL) NEGATIVE Urine Urobilinogen (<2.0 mg/dL) 0.2 Ur Leukocyte Esterase (NEGATIVE Leuk/mcL) NEGAT [place]ITAN Urine RBC (0 - 3 #RBC/HPF) 1-3 Urine WBC (0 - 3 #WBC/HPF) 0-1 Ur Squamous Epith Cells (NONE /HPF) TRACE Urine Bacteria (NONE - TRACE /HPF) NONE SEEN Urine Mucus (NONE SEEN /LPF) 1+ Urine Culture Screen (Culture CHK Criteria) NO, WBC<10 Recent Impressions: RADIOLOGY - XR CHEST 1 V 02/18 1235 Report Impression - Status: SIGNED Entered: 02/18/2019 1248 IMPRESSION: Lungs are clear. No acute abnormalit y. Impression By: Ihsan Palmer M.D. ULTRASOUND - US ABDOMEN [facility] 02/18 1350 Report Impression - Status: SIGNED Entered: 02/18/2019 1441 IMPRESSION: No cholelithiasis or evidence of acu te cholecystitis. Impression By: Ihsan Palmer M.D. CAT SCAN - CT ABD PELVIS W/CONT 02/18 1510 Report Impression - Status: SIGNED Entered: 02/18/2019 1535 IMPRESSION: Bulky pancreas with peripancreatic inflammatory changes indicative of pancreatitis. Impression By: RadhaANSDale Smith M.D. Lab Imaging Statement Laboratory radiographic studies reviewed and con sidered in the medical decision-making. Point of Care Testing Pulse Oximetry Pulse Ox % 99 On: Room air Interpretation Interpreted by me, Pulse oximetr y normal Time 1201 ECG #1 Interpretation ECG Documented in MUSE Yes Date 02/18/19 Time 1303 Interpreted by ED physician NL ECG Interpretation No acute ischemic changes, No STEMI, Normal axis, Normal intervals Rate 52 Rhythm Bradycardia Portions of this section were scribed by Romeo Apodaca on 02/18/19 at 1616 Re-Evaluation MDM )( Re-Evaluation/Progress #1 Time of Re-Eval 1630 )( Re-Eval Status Guarded, stable ED Course Medication(s) Ordered Medication(s) Ordered: Cardiovascular Drugs Sig/[place] Start time Last Medication Dose Route Stop Time Status Admin Lidocaine HCl 10 ML X1ED STA 02/18 1235 DC 02/06 3 PO 02/18 1236 1249 Central Nervous System Agents Sig/[place] Start time Last Medication Dose Route Stop Time Status Admin Acetaminophen 650 MG Q4H PRN PRN 02/18 1645 DC PO 03/20 1644 Hydrocodone Bitart/ 1 TAB Q4H PRN PRN 02/18 164 5 DC Acetaminophen PO 02/28 1644 Hydrocodone Bitart/ 1 TAB Q4H PRN PRN 02/18 164 5 DC Acetaminophen PO 02/28 1644 Ketorolac 30 MG Q6H PRN PRN 02/18 1645 DC Tromethamine IV 02/23 1644 Fentanyl Citrate 100 MCG X1ED STA 02/18 1441 DC 02/18 IV 02/18 1442 1445 Morphine Sulfate 2 MG X1ED STA 02/18 1336 DC IV 02/18 1337 1341 Morphine Sulfate 2 MG X1ED STA 02/18 1313 DC IV 02/18 1314 1317 Ketorolac 15 MG X1ED STA 02/18 1235 DC 02/18 Tromethamine IV 02/18 1236 1250 Diagnostic Agents Sig/[place] Start time Last Medication Dose Route Stop Time Status Admin Iopamidol 0 .STK-MED ONE 02/18 1452 DC 02/18 .ROUTE 1517 Electrolytic, Caloric, And [place] Sig/[place] Start time Last Medication Dose Route Stop Time Status Admin Sodium Chloride 1,000 ML .[id number] 02/18 1645 DC 02/18 IV 02/19 1531 1644 Sodium Chloride 50 ML .STK-MED ONE 02/18 1454 D C 02/18 IV 1517 Sodium Chloride 1,000 ML X1ED STA 02/18 1235 DC 02/18 IV 02/18 1335 1249 Gastrointestinal Drugs Sig/[place] Start time Last Medication Dose Route Stop Time Status Admin Docusate Sodium 100 MG Q12H PRN PRN 02/18 1645 DC PO 03/20 1644 Ondansetron HCl 4 MG Q4H PRN PRN 02/18 1645 AC 02/18 IV 03/20 1644 2035 Metoclopramide HCl 10 MG X1ED STA 02/18 1636 DC 02/18 IV 02/18 1637 1643 Ondansetron HCl 4 MG X1ED STA 02/18 1420 DC IV 02/18 1421 1426 Ondansetron HCl 4 MG X1ED PRN PRN 02/18 1245 DC 02/18 IV 02/19 1244 1250 Al Hydrox/Mg Hydrox/ 30 ML X1ED STA 02/18 1235 DC 02/18 Simethicone PO 02/18 1236 1249 Other Sig/[place] Start time Last Medication Dose Route Stop Time Status Admin Sodium Chloride 10 ML ASDIR 02/18 1645 AC IV 02/19 1531 Portions of this section were scribed by Romeo Apodaca on 02/18/19 at 1631 Patient Discharge Departure Vital Signs/Condition Vital Signs First Documented: Result Date Time Pulse Ox 99 02/18 1201 B/P 152/93 02/18 1201 B/P Mean 112 02/18 1201 O2 Delivery Room air 02/18 1201 Temp 98.2 02/18 1201 Pulse 68 02/18 1201 Resp 18 02/18 1201 Last Documented: Result Date Time Pulse Ox 100 02/18 1451 B/P 138/95 02/18 1451 B/P Mean 109 02/18 1451 O2 Delivery Room air 02/18 1451 Temp 98.5 02/18 1451 Pulse 69 02/18 1451 Resp 18 02/18 1451 All vital signs available at the time of this en try have been reviewed. Condition Guarded, Stable Clinical Impression Clinical Impression Primary Impression: Acute pancreatitis Secondary Impressions: HIV (human immunodeficien cy virus infection) Disposition Decision Admit Admit Physician Name EstuardoMarcelo singhmaría JACOBS Admit Physician Hospitalist Request Time 163 Request Date 02/18/19 )( Admission Accepts Yes )( Accepted Time 163 )( Accepted Date 02/18/19 Discharge/Care Plan Counseled Regarding Diagnosi s, Lab results, Imaging studies, Need for admission Admit Note I have spoken with the patie nt and/or caregivers. I have explained the patient's condition, diagnoses and zenia atment plan based on the information available to me at this time. I have answered the patient's and/ or caregiver's questions and addressed any concerns. The patient and/or careg musa have as good an understanding of the patient 's diagnosis, condition and treatment plan as can be expected at this point. The patient has been stabilized within the capability of the emergency department. The patient wi ll be transported for further care and management or will be moved to an observation or inpatient service. I have communicated with the staff or medical p ractitioner taking over this patient's care. Supervising Physician Note Scribe Statement Brenda Apodaca, 02/18/19 1213, scribing for a nd in the presence of [GITA Moses]. Signed By: Brenda Apodaca, 02/18/19 1213 Provider Scribed Statement I personally performed the s ervices described in this documentation and reviewed the documentation that was dictated to the scrib e(s) in my presence, and it accurately records my words and actions. Dunia Acosta, 02/19/19 Portions of this section were scribed by Romeo Apodaca on 02/18/19 at 1631 Jasmina Judd 02/19/19 1117: HPI-Abd Pain M Under 40 General Initial Greet Date/Time 02/18/19 1204 Patient Discharge Departure Supervising Physician Note MidLv Saw Pt Alone I have reviewed the PA/ACCOUNTS PAYABLE ACCOUNTANT's note and plan of car e. I was available for consultation as needed at al l times during the patient's visit in the emergency department. I agree with the clinical impression , plan and disposition. Electronically Signed by Dunia Valles on at 1106 at 1118 RPT #: [id number] END OF REPORT
[2022-07-15 14:03] LABS: Specific Gravity 1.028 (1.005-1.030); Urine Bacteria None Seen /HPF (<20); Urine Bilirubin NEGATIVE (Negative); Urine Blood Trace (Negative); Urine Clarity Clear (Clear); Urine Color Yellow (Yellow); Urine Glucose NEGATIVE (Negative); Urine Mucus Slight /HPF (None Seen); Urine Protein 1+ (Negative); Urine RBC <5 /HPF (None Seen); Urine Urobilinogen Normal (Normal)
[2022-07-15] MEDS ORDERED: ONDANSETRON 4 MG/2 ML VIAL ONE (14:28)
[2022-07-15] MEDS ORDERED: Ringers Lactate 1,000 ML IV ONE (14:28)
[2022-07-15] MEDS ORDERED: MORPHINE 4 MG/ML SYR ONE (14:29)
[2022-07-15 14:42] LABS: Absolute Lymphocytes (CBC) 0.6 K/uL (0.7-4.9); Lymphocytes % 5.4 % (15.3-44.8); MCV 88.8 fL (80-100); MPV 8.6 fL (7.6-11.3); RBC Red Blood Cell Count 4.61 M/uL (4.33-5.43)
[2022-07-15 14:58] LABS: Albumin 3.8 g/dL (3.4-5.0); Bilirubin Total 1.7 mg/dL (0.2-1.0); Potassium 4.1 mEq/L (3.5-5.1); Protein, Total 9.5 g/dL (6.4-8.2)
--- NOTE | 2022-07-15 17:12 | RAD REPORT ---
EXAM DESCRIPTION: CT - Abdomen Pelvis W Contrast - 07/15/2022 4:47 pm CLINICAL HISTORY: Abdominal pain COMPARISON: none. TECHNIQUE: Computed axial tomography of the abdomen pelvis was obtained. 95 cc Isovue-300 was admini stered intravenously. Oral contrast was not requested which limits evaluation of bowel and appendix All CT scans are performed using dose optimization technique as appropriate and may include automated exposure control or mA/KV adjustment according to patient size. FINDINGS: Mild fatty liver. Mild prominence of the left lobe liver The Spleen, pancreas, adrenal and kidneys appear unremarkable. There is no evidence of diverticulitis. Normal appendix Cholecystectomy IMPRESSION: Mild fatty liver. Mild prominence of the left lobe liver
[2022-07-15] MEDS ORDERED: PROMETHAZINE INJ 25 MG/ML AMP ONE (17:15)
[2022-07-15] MEDS ORDERED: DICYCLOMINE HCL 10 MG CAP ONE (17:16)
--- NOTE | 2022-07-15 17:26 | ER ---
Nurse's Notes [facility] Name: Tra Doyle Age: 37 yrs Sex: Male : 1985 Arrival Date: 07/15/2022 Time: 12:28 Bed 11 Private MD: Diagnosis: Vomiting;Abdominal pain, unspecified Presentation: 07/15 12:38 Chief complaint: Patient states: ABD pain, N/V X 1 day. Coronavirus screen: At this ld1 time, the client does not indicate any symptoms associated with coronavirus-19. Ebola Screen: No symptoms or risks identified at this time. Initial Sepsis Screen: Does the patient meet any 2 criteria? No. Patient's initial sepsis screen is negative. Does the patient have a suspected source of infection? No. Patient's initial sepsis screen is negative. Risk Assessment: Do you want to hurt yourself or someone else? Patient reports no desire to harm self or others. Onset of symptoms was July 15, 2022. 12:38 Method Of Arrival: Ambulatory ld1 12:38 Acuity: JOSH 3 ld1 Triage Assessment: 12:38 General: Appears in no apparent distress. uncomfortable, Behavior is cooperative, ld1 anxious, crying. Pain: Complains of pain in abdomen Pain does not radiate. Pain currently is 10 out of 10 on a pain scale. Quality of pain is described as throbbing, Pain began 1 day ago. Is continuous. EENT: No signs and/or symptoms were reported regarding the EENT system. Neuro: Level of Consciousness is awake, alert, obeys commands, Oriented to person, place, time, situation. Cardiovascular: Capillary refill < 3 seconds Patient's skin is warm and dry. Respiratory: Airway is patent Respiratory effort is even, unlabored. GI: Abdomen is flat, non-distended, Reports lower abdominal pain, upper abdominal pain, nausea, vomiting. : No signs and/or symptoms were reported regarding the genitourinary system. Derm: No signs and/or symptoms reported regarding the dermatologic system. Musculoskeletal: No signs and/or symptoms reported regarding the musculoskeletal system. Historical: - Allergies: 12:38 No Known Allergies; ld1 - PMHx: 12:38 HIV positive; ld1 - PSHx: 12:38 Cholecystectomy; ld1 - Immunization history:: Adult Immunizations up to date, Client reports receiving the 2nd dose of the Covid vaccine. - Social history:: Smoking status: Patient denies any tobacco usage or history of. Patient/guardian denies using alcohol. Screenin:28 [facility] ED Fall Risk Assessment (Adult) History of falling in the last 3 months, nj1 including since admission No falls in past 3 months (0 pts) Confusion or Disorientation No (0 pts) Intoxicated or Sedated No (0 pts) Impaired Gait No (0 pts) Mobility Assist Device Used No (0 pt) Altered Elimination No (0 pt) Score/Fall Risk Level 0 - 2 = Low Risk Oriented to surroundings, Maintained a safe environment, Hourly rounding (assess needs \T\ fall precautionary measures) done. Abuse screen: Denies threats or abuse. Denies injuries from another. Nutritional screening: No deficits noted. Tuberculosis screening: No symptoms or risk factors identified. Assessment: 15:20 Reassessment: Patient appears in no apparent distress at this time. Patient and/or nj1 family updated on plan of care and expected duration. Pain level reassessed. Patient is alert, oriented x 3, equal unlabored respirations, skin warm/dry/pink. Pain: Complains of pain in abdomen Pain currently is 6 out of 10 on a pain scale. GI: Patient currently denies nausea. 17:13 Reassessment: Patient appears in no apparent distress at this time. Patient and/or nj1 family updated on plan of care and expected duration. Pain level reassessed. Patient is alert, oriented x 3, equal unlabored respirations, skin warm/dry/pink. GI: Reports upper abdominal pain, nausea. 17:57 Reassessment: Patient appears in no apparent distress at this time. Patient and/or nj1 family updated on plan of care and expected duration. Pain level reassessed. Patient is alert, oriented x 3, equal unlabored respirations, skin warm/dry/pink. Patient states feeling better. Patient states symptoms have improved. Vital Signs: 12:38 BP 153 / 99; Pulse 82; Resp 18; Temp 97.6(TE); Pulse Ox 98% on R/A; Weight 63.5 kg; ld1 Height 5 ft. 10 in. ; Pain 10/10; 17:13 BP 139 / 100; Pulse 57; Resp 16; Pulse Ox 100% on R/A; Pain 8/10; nj1 17:57 BP 154 / 97; Pulse 95; Resp 17; Pulse Ox 99% on R/A; Pain 6/10; nj1 12:38 Body Mass Index 20.09 (63.50 kg, 177.8 cm) ld1 12:38 Pain Scale: Adult ld1 17:13 Pain Scale: Adult nj1 17:57 Pain Scale: Adult nj1 ED Course: 12:31 Patient arrived in ED. im 12:38 Arm band placed on right wrist. ld1 12:39 Triage completed. ld1 12:42 David Santana PA is PHCP. jmm 12:42 Julio Cesar Cheung MD is Attending Physician. jmm 13:55 Urinalysis w/ reflexes Sent. mm9 13:55 Urine collected: clean catch specimen, clear. Missed attempt(s): 20 gauge in right mm9 antecubital area. MOTHER IN ROOM LOOKING OVER MY SHOULDER .SHE SAID SHE IS A LICENSED ASTRO TECHNICIAN AND THAT I WAS NOT DOING IT RIGHT . . 13:59 Patient has correct armband on for positive identification. Bed in low position. Call mm9 light in reach. Side rails up X 1. Warm blanket given. Pulse ox on. NIBP on. 14:36 Dyana Chou, RN is Primary Nurse. ss 14:36 Lipase Sent. ld1 14:36 CMP Sent. ld1 14:36 CBC with Diff Sent. ld1 14:37 Inserted saline lock: 20 gauge in left antecubital area, using aseptic technique. Blood ld1 collected. 16:48 Abdomen In Process Unspecified. EDMS 17:25 Tyler Goodman MD is Referral Physician. [facility] 17:57 No provider procedures requiring assistance completed. IV discontinued, intact, nj1 bleeding controlled. Administered Medications: 14:36 Drug: Lactated Ringers Solution IV 1000 ml Route: IV; Rate: 1000 bolus; Site: left ld1 antecubital; 17:13 Follow up: IV Status: Completed infusion; IV Intake: 1000ml nj1 17:30 Follow up: Response: No adverse reaction nj1 14:36 Drug: Ondansetron IVP 4 mg Route: IVP; Site: left antecubital; ld1 17:29 Follow up: Response: No adverse reaction nj1 14:36 Drug: morphine IVP or IV 4 mg Route: IVP; Infused Over: 4 mins; Site: left antecubital; ld1 17:29 Follow up: Response: No adverse reaction nj1 17:13 Drug: Dicyclomine PO 20 mg Route: PO; nj1 18:05 Follow up: Response: No adverse reaction nj1 17:13 Drug: Promethazine IVP 12.5 mg Route: IVP; Site: left antecubital; nj1 18:05 Follow up: Response: No adverse reaction; Nausea is decreased nj1 Medication: 17:57 VIS not applicable for this client. nj1 Intake: 17:13 IV: 1000ml; Total: 1000ml. nj1 Outcome: 17:25 Discharge ordered by . jaymie 17:57 Discharged to home ambulatory. nj1 17:57 Condition: stable 17:57 Discharge instructions given to patient, Instructed on discharge instructions, follow up and referral plans. medication usage, Demonstrated understanding of instructions, follow-up care, medications, Prescriptions given X 3. 18:07 Patient left the ED. nj1 Signatures: Dispatcher [employer] EDMS David Santana PA PA jmm Blanchard, Shelby, RN RN Michelle Ng RN RN ld1 Mary Turner mmMarilu Mace RN RN nj1 Rose Mary Bond Corrections: (The following items were deleted from the chart) 12:39 12:38 PSHx: None; ld1 ld1
--- NOTE | 2022-07-15 17:26 | EDPHYS ---
Physician Documentation [facility] Name: Tra Doyle Age: 37 yrs Sex: Male : 1985 Arrival Date: 07/15/2022 Time: 12:28 Bed 11 Private MD: ED Physician Julio Cesar Cheung HPI: 07/15 12:10 This 37 yrs old Black Male presents to ER via Ambulatory with complaints of Abdominal jmm Pain, Nausea/Vomiting. 12:10 The patient presents with abdominal pain. Onset: The symptoms/episode began/occurred jmm gradually, 1 day(s) ago. The symptoms do not radiate. Associated signs and symptoms: Pertinent positives: nausea and vomiting, Pertinent negatives: diarrhea. The symptoms are described as achy. Modifying factors: The symptoms are alleviated by nothing, the symptoms are aggravated by nothing. This is a 37 year old male with a history of HIV that presents to the ED with complaints of generalized abdominal pain, nausea vomiting beginning yesterday. . Historical: - Allergies: 12:38 No Known Allergies; ld1 - PMHx: 12:38 HIV positive; ld1 - PSHx: 12:38 Cholecystectomy; ld1 - Immunization history:: Adult Immunizations up to date, Client reports receiving the 2nd dose of the Covid vaccine. - Social history:: Smoking status: Patient denies any tobacco usage or history of. Patient/guardian denies using alcohol. ROS: 12:10 Constitutional: Negative for fever, chills, and weight loss, Cardiovascular: Negative jmm for chest pain, palpitations, and edema, Respiratory: Negative for shortness of breath, cough, wheezing, and pleuritic chest pain. 12:10 Abdomen/GI: Positive for abdominal pain, nausea and vomiting. 12:10 All other systems are negative. Exam: 12:10 Constitutional: This is a well developed, well nourished patient who is awake, alert, jmm and in no acute distress. Head/Face: atraumatic. Eyes: EOMI, no conjunctival erythema appreciated ENT: Moist Mucus Membranes Neck: Trachea midline, Supple Chest/axilla: Normal chest wall appearance and motion. Cardiovascular: Regular rate and rhythm. No edema appreciated Respiratory: Normal respirations, no respiratory distress appreciated 12:10 Back: Normal ROM Skin: General appearance color normal MS/ Extremity: Moves all extremities, no obvious deformities appreciated, no edema noted to the lower extremities Neuro: Awake and alert Psych: Behavior is normal, Mood is normal, Patient is cooperative and pleasant 12:10 Abdomen/GI: Inspection: abdomen appears normal, Bowel sounds: normal, Palpation: soft, mild abdominal tenderness, in all quadrants. Vital Signs: 12:38 BP 153 / 99; Pulse 82; Resp 18; Temp 97.6(TE); Pulse Ox 98% on R/A; Weight 63.5 kg; ld1 Height 5 ft. 10 in. ; Pain 10/10; 17:13 BP 139 / 100; Pulse 57; Resp 16; Pulse Ox 100% on R/A; Pain 8/10; nj1 17:57 BP 154 / 97; Pulse 95; Resp 17; Pulse Ox 99% on R/A; Pain 6/10; nj1 12:38 Body Mass Index 20.09 (63.50 kg, 177.8 cm) ld1 12:38 Pain Scale: Adult ld1 17:13 Pain Scale: Adult nj1 17:57 Pain Scale: Adult nj1 MDM: 12:42 Patient medically screened. [facility] 15:01 Differential diagnosis: bowel obstruction, cholecystitis, Cholelithiasis, [facility] Pyelonephritis. Data reviewed: vital signs, nurses notes. Consideration of Admission/Observation Patient was admitted/placed on observation. 17:24 Counseling: I had a detailed discussion with the patient and/or guardian regarding: the [facility] historical points, exam findings, and any diagnostic results supporting the discharge/admit diagnosis, lab results, radiology results, the need for outpatient follow up, to return to the emergency department if symptoms worsen or persist or if there are any questions or concerns that arise at home. ED course: CT negative. Patient advised to follow-up with GI for further evaluation otherwise given strict return precautions. Patient understood and agrees plan of care. 07/15 12:40 Order name: CBC with Diff; Complete Time: 14:44 ld1 07/15 12:40 Order name: CMP; Complete Time: 15:04 ld1 07/15 12:40 Order name: Lipase; Complete Time: 15:04 ld1 07/15 12:40 Order name: Urinalysis w/ reflexes; Complete Time: 14:04 ld1 07/15 16:27 Order name: Abdomen ; Complete Time: 17:13 EDMS 07/15 12:40 Order name: IV Saline Lock; Complete Time: 14:36 ld1 07/15 12:40 Order name: Labs collected and sent; Complete Time: 14:36 ld1 Administered Medications: 14:36 Drug: Lactated Ringers Solution IV 1000 ml Route: IV; Rate: 1000 bolus; Site: left ld1 antecubital; 17:13 Follow up: IV Status: Completed infusion; IV Intake: 1000ml nj1 17:30 Follow up: Response: No adverse reaction nj1 14:36 Drug: Ondansetron IVP 4 mg Route: IVP; Site: left antecubital; ld1 17:29 Follow up: Response: No adverse reaction nj1 14:36 Drug: morphine IVP or IV 4 mg Route: IVP; Infused Over: 4 mins; Site: left antecubital; ld1 17:29 Follow up: Response: No adverse reaction nj1 17:13 Drug: Dicyclomine PO 20 mg Route: PO; nj1 18:05 Follow up: Response: No adverse reaction nj1 17:13 Drug: Promethazine IVP 12.5 mg Route: IVP; Site: left antecubital; nj1 18:05 Follow up: Response: No adverse reaction; Nausea is decreased nj1 Disposition Summary: 07/15/22 17:25 Discharge Ordered Location: Home [facility] Condition: Stable [facility] Diagnosis - Vomiting m - Abdominal pain, unspecified [facility] Followup: [facility] - With: Tyler Goodman MD - When: 2 - 3 days - Reason: Recheck today's complaints, Continuance of care, Re-evaluation by your physician Discharge Instructions: - Discharge Summary Sheet [facility] - Abdominal Pain, Adult jmm - Vomiting, Adult [facility] Forms: - Medication Reconciliation Form [facility] - Thank You Letter [facility] - Antibiotic Education [facility] - Prescription Opioid Use [facility] - Work release form nj1 Prescriptions: - ondansetron 4 mg Oral Tablet,disintegrating - take 1 tablet by ORAL route every 4-6 hours As needed; 30 tablet; Refills: 0, [facility] Product Selection Permitted - Pepcid 20 mg Oral Tablet - take 1 tablet by ORAL route every 12 hours for 10 days; 20 tablet; Refills: 0, [facility] Product Selection Permitted - dicyclomine 20 mg Oral Tablet - take 1 tablet by ORAL route 4 times per day As needed; 30 tablet; Refills: 0, [facility] Product Selection Permitted Addendum: 07/18/2022 23:17 Co-signature as Attending Physician, Julio Cesar Cheung MD I reviewed the patient's care r t provided by the Advanced Practice Provider and agree with the diagnosis and treatment plan. Signatures: Dispatcher [employer] EDMS David Santana PA PA jmm Sims, Lauren, RN RN ld1 Julio Cesar Cheung MD MD rt Marilu Bustamante RN RN nj1 Corrections: (The following items were deleted from the chart) 07/15 12:39 12:38 PSHx: None; ld1 ld1 16:55 16:53 Abdomen Pelvis W Con+CT.RAD.BRZ ordered. EDIN EDMS
[2022-07-15 18:24] VITALS: TEMP 97.6
[2022-07-15 18:40] VITALS: BP 154/97; O2SAT 99
== END 2022-07-15 18:07 | disposition home or self-care (01) ==
LOC: ER 12:28
DX: R11.2 Nausea with vomiting, unspecified (principal); R10.84 Generalized abdominal pain
CPT/HCPCS: 36415; 74177; 80053; 81001; 83690; 85025; 96361; 96374; 96375; 99284; J2405; J2550; J7120; Q9967